=== PATIENT | female | born 1985 | race African-American/Black ===

== ENCOUNTER 2017-09-01 11:38 | Outpatient (CLI) | payer MEDICAID ==
[~2017-09-01] VITALS: Ht 182.9 cm; Wt 153.3 kg
[~2017-09-01 11:38] MED LIST: ALBU8.5H2 IH; ALBU8.5H4 IH; IPRA3AMP19 IH; PRD20T PO
[2017-09-01 12:00] VITALS: BP 133/65
[2017-09-01] MEDS ORDERED: NS IV 1000 ML 1,000 ML ONE ×2 (12:12→14:55)
[2017-09-01] MEDS ORDERED: ONDANSETRON 4 MG/2 ML (SDV) Z0FRAN ONE ×2 (12:12→17:21)
[2017-09-01] MEDS ORDERED: NS IV 1000 ML 1,000 ML IV SCH (12:15)
[2017-09-01] MEDS ORDERED: ONDANSETRON 4 MG/2 ML (SDV) Z0FRAN IVP ONE ×2 (12:15→15:15)
[2017-09-01 12:35] LABS: BILIRUBIN,URINE NEGATIVE (NEGATIVE); CLARITY,URINE CLEAR; COLOR,URINE YELLOW; GLUCOSE, URINE (UA) NEGATIVE (NEGATIVE); KETONES,URINE NEGATIVE (NEGATIVE); LEUKOCYTE ESTERASE ,URINE 2+ (NEGATIVE); NITRITE,URINE NEGATIVE (NEGATIVE); PH,URINE 5 (5-9); PROTEIN,URINE 1+ (NEGATIVE); UROBILINOGEN,URINE 1 MG/DL (NORMAL)
[2017-09-01 12:43] LABS: BACTERIA,URINE NEGATIVE /HPF; RBC,URINE 0-2 /HPF
[2017-09-01 12:46] LABS: BASOPHILS % (AUTO) 0 % (0-10); EOSINOPHILS # (AUTO) 0.1 10^3/uL (0.0-0.3); EOSINOPHILS % (AUTO) 1 % (0-10); HEMATOCRIT 34 % (35-52); HEMOGLOBIN 10.5 G/DL (11.5-16.0); LYMPHOCYTES # (AUTO) 0.5 X 10^3 (1.0-4.0); LYMPHOCYTES % (AUTO) 5 % (12-44); MEAN CORPUSCULAR HEMOGLOBIN 27 PG (25-34); MEAN CORPUSCULAR HGB CONC 31 G/DL (32-36); MEAN CORPUSCULAR VOLUME 85 FL (80-99); MEAN PLATELET VOLUME 8.9 FL (7.4-10.4); MONOCYTES # (AUTO) 0.9 X 10^3 (0.0-1.0); MONOCYTES % (AUTO) 8 % (0-12); NEUTROPHILS # (AUTO) 9.2 X 10^3 (1.8-7.8); NEUTROPHILS % (AUTO) 86 % (42-75); PLATELET COUNT 290 10^3/uL (130-400); RED BLOOD COUNT 3.96 10^6/uL (4.35-5.85); RED CELL DISTRIBUTION WIDTH 13.5 % (10.0-14.5); WHITE BLOOD COUNT 10.7 10^3/uL (4.3-11.0)
[2017-09-01 12:50] VITALS: BP 120/59
[2017-09-01 13:06] LABS: ALANINE AMINOTRANSFERASE 13 U/L (0-55); ALBUMIN 3.1 GM/DL (3.2-4.5); ALKALINE PHOSPHATASE 96 U/L (40-136); BILIRUBIN,TOTAL 0.2 MG/DL (0.1-1.0); BUN/CREATININE RATIO 10; CALCIUM 8.9 MG/DL (8.5-10.1); CARBON DIOXIDE 24 MMOL/L (21-32); CHLORIDE 109 MMOL/L (98-107); CREATININE SERUM 0.62 MG/DL (0.60-1.30); GFR ESTIMATED > 60; GLUCOSE 85 MG/DL (70-105); POTASSIUM 3.6 MMOL/L (3.6-5.0); SODIUM 139 MMOL/L (135-145); TOTAL PROTEIN 6.3 GM/DL (6.4-8.2); URIC ACID 3.2 MG/DL (2.6-7.2)
[2017-09-01 13:40] LABS: BAND NEUTROPHILS 0 %; BASOPHILS % (MANUAL) 0 %; EOSINOPHILS % (MANUAL) 2 %; LYMPHOCYTES % (MANUAL) 8 %; MONOCYTES % (MANUAL) 5 %; NEUTROPHILS % (MANUAL) 85 %; RBC MORPH NORMAL
[2017-09-01] MEDS ORDERED: ACETAMINOPHEN 500 MG TAB (TYLENOL) PO ONE (15:15)
[2017-09-01] MEDS ORDERED: RT-ALBUTEROL/IPRATROPIUM 3 ML (DUONEB) VIAL ONE (15:20)
[2017-09-01] MEDS ORDERED: RT-ALBUTEROL/IPRATROPIUM 3 ML (DUONEB) VIAL INH ONE (15:30)
--- NOTE | 2017-09-02 14:17 | Physician Query-Final Dx ---
MARK JAMES 09/02/17 1417: Clinic Account Progress/Dx Physician Query: Please give diagnosis Date of Service Sep 01, 2017 at 11:38 TOÑO BONILLA DO 09/04/17 0852: Clinic Account Progress/Dx DIAGNOSIS: Diagnosis 1. 31 week GA 2. Vomiting 3. Dehydration MARK JAMES Sep 02, 2017 14:17 TOÑO BONILLA DO Sep 04, 2017 08:52
== END 2017-09-01 17:45 | disposition home or self-care (01) ==
LOC: LDRP 11:38 → WSo 11:38
PROVIDERS: ATTEND Family Medicine
DX: O21.2 Late vomiting of pregnancy (principal); O99.283 Endocrine, nutritional and metabolic diseases complicating pregnancy, third trimester; E86.0 Dehydration; Z3A.31 31 weeks gestation of pregnancy
CPT/HCPCS: 36415; 80053; 81000; 83615; 84550; 85007; 85027; 94640; 96361; 96374; 96376; 99213

== ENCOUNTER 2017-09-18 11:08 | Outpatient (CLI) | payer MEDICAID ==
[~2017-09-18] VITALS: Ht 182.9 cm; Wt 154.2 kg
[2017-09-18] VITALS (9 sets, daily range): BP systolic 117–143; BP diastolic 57–70
[2017-09-18] MEDS ORDERED: D5 LR IV SOLUTION 1,000 ML IV ONE (12:26)
[2017-09-18] MEDS ORDERED: ONDANSETRON 4 MG/2 ML (SDV) Z0FRAN ONE (12:26)
[2017-09-18] MEDS ORDERED: ONDANSETRON 4 MG/2 ML (SDV) Z0FRAN IVP ONE (12:30)
[2017-09-18] MEDS ORDERED: D5 LR IV SOLUTION 1,000 ML IV SCH ×2 (12:30→14:55)
[2017-09-18 12:50] LABS: BASOPHILS % (AUTO) 0 % (0-10); EOSINOPHILS % (AUTO) 0 % (0-10); HEMATOCRIT 30 % (35-52); HEMOGLOBIN 9.6 G/DL (11.5-16.0); LYMPHOCYTES # (AUTO) 1.1 X 10^3 (1.0-4.0); LYMPHOCYTES % (AUTO) 10 % (12-44); MEAN CORPUSCULAR HEMOGLOBIN 27 PG (25-34); MEAN CORPUSCULAR HGB CONC 32 G/DL (32-36); MEAN CORPUSCULAR VOLUME 83 FL (80-99); MEAN PLATELET VOLUME 9.1 FL (7.4-10.4); MONOCYTES # (AUTO) 1.4 X 10^3 (0.0-1.0); MONOCYTES % (AUTO) 13 % (0-12); NEUTROPHILS # (AUTO) 7.8 X 10^3 (1.8-7.8); NEUTROPHILS % (AUTO) 76 % (42-75); PLATELET COUNT 314 10^3/uL (130-400); RED BLOOD COUNT 3.55 10^6/uL (4.35-5.85); RED CELL DISTRIBUTION WIDTH 13.2 % (10.0-14.5); WHITE BLOOD COUNT 10.3 10^3/uL (4.3-11.0)
[2017-09-18 13:15] LABS: ALANINE AMINOTRANSFERASE 12 U/L (0-55); ALBUMIN 2.9 GM/DL (3.2-4.5); ALKALINE PHOSPHATASE 89 U/L (40-136); BILIRUBIN,TOTAL 0.5 MG/DL (0.1-1.0); BUN/CREATININE RATIO 7; CALCIUM 8.4 MG/DL (8.5-10.1); CARBON DIOXIDE 19 MMOL/L (21-32); CHLORIDE 106 MMOL/L (98-107); CREATININE SERUM 0.58 MG/DL (0.60-1.30); GFR ESTIMATED > 60; GLUCOSE 90 MG/DL (70-105); POTASSIUM 3.2 MMOL/L (3.6-5.0); SODIUM 135 MMOL/L (135-145); TOTAL PROTEIN 5.7 GM/DL (6.4-8.2)
[2017-09-18 13:26] LABS: BILIRUBIN,URINE NEGATIVE (NEGATIVE); CLARITY,URINE CLEAR; COLOR,URINE YELLOW; GLUCOSE, URINE (UA) NEGATIVE (NEGATIVE); KETONES,URINE 1+ (NEGATIVE); LEUKOCYTE ESTERASE ,URINE 1+ (NEGATIVE); NITRITE,URINE NEGATIVE (NEGATIVE); PH,URINE 6.5 (5-9); PROTEIN,URINE NEGATIVE (NEGATIVE); UROBILINOGEN,URINE NORMAL (NORMAL)
[2017-09-18 13:34] LABS: BACTERIA,URINE TRACE /HPF; RBC,URINE 0-2 /HPF; WBC,URINE RARE /HPF
[2017-09-18] MEDS ORDERED: AMPICILLIN INJECTION 2,000 MG in NS (IVPB) 50 ML IV SCH (14:55)
--- NOTE | 2017-09-18 14:55 | History & Physical-OB ---
OB - Chief Complaint & HPI Date/Time Date of Admission: 09/18/17 Time Seen by Provider: 15:00 Chief Complaint/History OB-Reason for Admission/Chief: Labor Hx : 5 Hx Para: 2 Hx Last Menstrual Period: 01/28/2017 Expected Date of Delivery: Nov 04, 2017 Gestational Age in Weeks: 33 Gestational Age in Days: 2 Other reason for admission: Pt presented earlier today with report of nausea, vomiting and diarrhea. Also reported decreased movement. UA dipstick showed 4+ blood, mild proteinuria. FHR difficult to monitor due to body habitus, BPP 8/, IVAN 11. Requested RN perform SVE, pt found to be 3-4 cm/80-90/-1, with soft and anterior cervix. Pt admitted for labor. Monitors adjusted and contractions noted every 2-5 minutes. Admission Nurse Assessment Rev: Yes Allergies and Home Medications Allergies Coded Allergies: No Known Drug Allergies (Unverified , 10/20/12) Home Medications Albuterol 8.5 Gm Hfa.aer.ad, 8.5 GM IH Q2, (Reported) 2 PUFFS Albuterol Sulfate 1 Puff Puff, 2 PUFF IH Q4H PRN for DYSPNEA 1 PUFF = 90 MCG Prescribed by: BETTINA ZAVALA on 09/18/17 1540 Beclomethasone Dipropionate 8.7 Gm Aer.w.adap, 8.7 GM IH BID Prescribed by: BETTINA ZAVALA on 09/18/17 1540 Ipratropium/Albuterol Sulfate 3 Ml Ampul.neb, 3 ML IH Q6H PRN for SHORTNESS OF BREATH Prescribed by: BETTINA ZAVALA on 09/18/17 1540 Patient Home Medication List Home Medication List Reviewed: Yes OB - History Hx of Present Care: Yes (Insufficient care) Ultrasounds: Other (pt reports she had an US in her fifth month in a doctor's office in [place], [place] before she moved up to [place]; she has not had a formal anatomy scan. BPP today 10/23, fetus vertex.) Obstetrical Complications: Other ( labor) Medical Complications: Respiratory (COPD) Information Induced Hypertension: No Maternal Gestational Diabetes: No Hemorrhage: Yes (with first delivery) Obstetrical History Hx : 5 Hx Para: 2 Hx # Term Pregnancies: 1 Hx # Pregnancies: 1 Number of Living Children: 2 Hx Termination: No Hx Total # of Abortions (Spona: 2 Hx Multiple Gestation: No Hx Ectopic : No Hx Stillbirth: No Hx Complication: Yes (preeclampsia - second ; hemorrhage requiring transfusion - first ) Hx Induced Hypertens: Yes Hx Maternal Gestational Diabet: No Hx Hemorrhage: Yes (requiring blood transfusion - after first delivery in 2005) Delivery History Hx Dystocia: No Hx Forceps Assisted Delivery: No Hx Vacuum Extraction Assisted: No Hx Placenta Abnormality: No Hx Distress: No Hx Large For Gestational Age I: No Hx Small for Gestational Age I: No Hx Section: No Hx Vaginal Delivery Post C-Sec: No Hx Blood Disorders: No Adverse Rxn to Tranfusion: No Patient Past Medical History Term Vaginal Delivery - 2005 Hemorrhage requiring blood transfusion - 2005 SAB x2 at 8 wks - 2008, 2015 Vaginal Delivery at 36 wks - 2014 Preeclampsia - 2014 Hx of abnormal PAP with + HPV; s/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 Hx Gonorrhea, Chlamydia, Trich COPD Asthma HTN Tobacco Abuse THC Abuse Past Surgical History: abdominal laparoscopy intestine surgery as an infant Social History/Family History HIV/AIDS: No Recent Infectious Disease Expo: No Sexually Transmitted Disease: No Alcohol Use: Denies Use Recreational Drug Use: Yes (THC) Smoking Cessation: Current every day smoker 2nd Hand Smoke Exposure: Yes Immunizations Tetanus Booster (TDap): Less than 5yrs (08/27/17) Rubella: not immune RPR/VDRL: Negative GBS Status: Unknown HBsAG: Negative OB - Admission Exam Physical Exam Vitals: Vital Signs 09/18/17 09/18/17 11:40 12:51 Temp 98.4 Pulse 105 Resp 20 B/P (MAP) 143/63 (89) O2 Delivery Room Air HEENT: NCAT Heart: Rhythm Normal Lungs: Wheezes, Rhonchi, Diffuse Abdomen: Gravid Extremities: Normal Reflexes: Normal Cervical Dilatation: 3cm (3-4 per RN) Effacement: Other (80-90% per RN) Station: -3 (per RN) Membranes: Intact Heart Rate: 150's Accelerations: Accelerations Present Decelerations: Variable Decelerations Residential Variability: Average (6-25) Contractions on Admission: < 5 Minutes Apart Date/Time Contractions Began;: 09/17/17 Frequency of Contractions: irregular; poor tracing due to maternal habitus, q2- 5 minutes when tracing Duration: 30-50 Intensity: Mild Labs Laboratory Tests Test 09/18/17 12:00 09/18/17 12:35 Range/Units Urine Color YELLOW Urine Clarity CLEAR Urine pH 6.5 5-9 Urine Specific [place] 1.015 L 1.016-1.022 Urine Protein NEGATIVE NEGATIVE Urine Glucose (UA) NEGATIVE NEGATIVE Urine Ketones 1+ H NEGATIVE Urine Nitrite NEGATIVE NEGATIVE Urine Bilirubin NEGATIVE NEGATIVE Urine Urobilinogen NORMAL NORMAL MG/DL Urine Leukocyte Esterase 1+ H NEGATIVE Urine RBC (Auto) 4+ H NEGATIVE Urine RBC 0-2 /HPF Urine WBC RARE /HPF Urine Squamous Epithelial Cells 5-10 /HPF Urine Crystals NONE /LPF Urine Bacteria TRACE /HPF Urine Casts NONE /LPF Urine Mucus SMALL H /LPF Urine Culture Indicated NO Urine Opiates Screen NEGATIVE NEGATIVE Urine Oxycodone Screen NEGATIVE NEGATIVE Urine Methadone Screen NEGATIVE NEGATIVE Urine Propoxyphene Screen NEGATIVE NEGATIVE Urine Barbiturates Screen NEGATIVE NEGATIVE Ur Tricyclic Antidepressants Screen NEGATIVE NEGATIVE Urine Phencyclidine Screen NEGATIVE NEGATIVE Urine Amphetamines Screen NEGATIVE NEGATIVE Urine Methamphetamines Screen NEGATIVE NEGATIVE Urine Benzodiazepines Screen NEGATIVE NEGATIVE Urine Cocaine Screen NEGATIVE NEGATIVE Urine Cannabinoids Screen POSITIVE H NEGATIVE White Blood Count 10.3 4.3-11.0 10^3/uL Red Blood Count 3.55 L 4.35-5.85 10^6/uL Hemoglobin 9.6 L 11.5-16.0 G/DL Hematocrit 30 L 35-52 % Mean Corpuscular Volume 83 80-99 FL Mean Corpuscular Hemoglobin 27 25-34 PG Mean Corpuscular Hemoglobin Concent 32 32-36 G/DL Red Cell Distribution Width 13.2 10.0-14.5 % Platelet Count 314 130-400 10^3/uL Mean Platelet Volume 9.1 7.4-10.4 FL Neutrophils (%) (Auto) 76 H 42-75 % Lymphocytes (%) (Auto) 10 L 12-44 % Monocytes (%) (Auto) 13 H 0-12 % Eosinophils (%) (Auto) 0 0-10 % Basophils (%) (Auto) 0 0-10 % Neutrophils # (Auto) 7.8 1.8-7.8 X 10^3 Lymphocytes # (Auto) 1.1 1.0-4.0 X 10^3 Monocytes # (Auto) 1.4 H 0.0-1.0 X 10^3 Eosinophils # (Auto) 0.0 0.0-0.3 10^3/uL Basophils # (Auto) 0.0 0.0-0.1 10^3/uL Sodium Level 135 135-145 MMOL/L Potassium Level 3.2 L 3.6-5.0 MMOL/L Chloride Level 106 98-107 MMOL/L Carbon Dioxide Level 19 L 21-32 MMOL/L Anion Gap 10 5-14 MMOL/L Blood Urea Nitrogen 4 L 7-18 MG/DL Creatinine 0.58 L 0.60-1.30 MG/DL Estimat Glomerular Filtration Rate > 60 BUN/Creatinine Ratio 7 Glucose Level 90 70-105 MG/DL Calcium Level 8.4 L 8.5-10.1 MG/DL Total Bilirubin 0.5 0.1-1.0 MG/DL Aspartate Amino Transf (AST/SGOT) 12 5-34 U/L Alanine Aminotransferase (ALT/SGPT) 12 0-55 U/L Alkaline Phosphatase 89 40-136 U/L Total Protein 5.7 L 6.4-8.2 GM/DL Albumin 2.9 L 3.2-4.5 GM/DL OB - Assessment/Plan/Diagnosis Assessment Assessment: labor Admission Dx Labor 33 weeks gestation Obesity complicating in third trimester, BMI 46 Insufficient Care Tobacco Abuse Complicating Drug Abuse Complicating - THC COPD Asthma Hx of Preeclampsia Hx of Hemorrhage requiring transfusion Hx HSV1 and HSV2 Admission Status: Inpatient Order (span 2 midnights) Reason for Inpatient Admission: Mag Sulfate Therapy Plan Plan: Other (Tocolysis, stabilization, evaluation for cervical change and transfer to facility with higher level of NICU care for infant if not in active labor) Other Plan -Magnesium Sulfate - 6 gram bolus, 2 grams per hour -Betamethasone 12.5 mg IM now, repeat x1 in 24 hours -GBS culture -Ampicillin 2 grams now, then 1 gram Q4H for GBS prophylaxis -recheck SVE one hour after initial exam; if no change will call for transfer -ford cath placement -accurate I&O -bedrest 1550 -no change in SVE -[facility] Transfer [facility] called, patient accepted for transfer by Dr. Wilman Smith -review of records show late care; pt with first visit at [address] Cm; pt reports she had one other visit in [place], [place] and had an US in the office, which is how she knows that she is having a boy -no history of formal anatomy scan, office note on 08/27 reports US to be ordered , pt reports that it was scheduled for next week -BPP obtained today, 10/23 with IVAN 11, fetus vertex -will transfer to [place] via [facility] Copy Copies To 1: BRINA MC MD, MARGARET E DO Sep 18, 2017 14:55
[2017-09-18] MEDS ORDERED: MAGNESIUM 4 GM/100 ML IVPB 100 ML IV SCH (15:00)
[2017-09-18] MEDS ORDERED: CALCIUM GLUC. 10% 4.65 MEQ/10 ML VIAL IV PRN (15:00)
[2017-09-18] MEDS ORDERED: BETAMETHASONE ACE/NA PHOS 6 MG/ML (CELESTONE SOLUSPAN) IM SCH (15:00)
[2017-09-18] MEDS ORDERED: NS (IVPB) 50 ML ONE (15:14)
--- NOTE | 2017-09-18 15:22 | Diagnostic Imaging Report ---
INDICATION: Decreased movement. COMPARISON: None available. TECHNIQUE: Biophysical profile score was performed on 09/18/2017. FINDINGS: A single live intrauterine gestation is identified in a cephalic presentation. cardiac motion is documented at 130 beats per minute. The placenta is fundally located. Amniotic fluid index is within normal limits at 11.1 cm with the largest single pocket measuring 4.7 cm. Biophysical profile score: breathing movements: 2 out of 2 movements: 2 out of 2 posture and tone: 2 out of 2 Qualitative amniotic fluid volume: 2 out of 2 Total score: 8 out of 8 IMPRESSION: Single live intrauterine gestation in a cephalic presentation with a biophysical profile score of 8 out of 8. Dictated by: Dictated on workstation # [id number]
[2017-09-18] MEDS ORDERED: MAGNESIUM SULFATE DRIP 500 ML IV SCH (15:25)
[2017-09-18] MEDS ORDERED: ACYCLOVIR 400 MG TABLET (ZOVIRAX) PO SCH (15:30)
[2017-09-18] MEDS ORDERED: BECL8.7A7 IH (15:40)
[2017-09-18] MEDS ORDERED: IPRA3AMP31 IH (15:40)
[2017-09-18] MEDS ORDERED: RT-ALBUINH IH (15:40)
[2017-09-18 15:48] LABS: AMPHETAMINE SCREEN, URINE NEGATIVE (NEGATIVE); BENZODIAZEPINES SCREEN URINE NEGATIVE (NEGATIVE); COCAINE SCREEN URINE NEGATIVE (NEGATIVE); METHAMPHETAMINE SCREEN URINE S NEGATIVE (NEGATIVE)
[2017-09-18 15:49] LABS: BARBITURATE SCREEN URINE NEGATIVE (NEGATIVE); CANNABINOID SCREEN, URINE POSITIVE (NEGATIVE); METHADONE STAT NEGATIVE (NEGATIVE); OPIATE SCREEN URINE NEGATIVE (NEGATIVE); OXYCODONE STAT NEGATIVE (NEGATIVE); PROPOXYPHENE STAT NEGATIVE (NEGATIVE); TRICYCLIC ANTIDEPRESSANTS SCRE NEGATIVE (NEGATIVE)
[2017-09-18] MEDS ORDERED: MAGNESIUM 2 GM/50 ML IVPB 50 ML IV ONE (15:58)
--- NOTE | 2017-09-18 16:40 | Discharge Summary ---
Diagnosis/Chief Complaint Date of Admission 09/18/17 Date of Discharge 09/18/17 Admission Diagnosis Admission Diagnosis Labor 33 weeks gestation Obesity complicating in third trimester, BMI 46 Insufficient Care Tobacco Abuse Complicating Drug Abuse Complicating - THC COPD Asthma Hx of Preeclampsia Hx of Hemorrhage requiring transfusion Hx HSV1 and HSV2 Discharge Diagnosis Labor 33 weeks gestation Obesity complicating in third trimester, BMI 46 Insufficient Care Tobacco Abuse Complicating Drug Abuse Complicating - THC COPD Asthma Hx of Preeclampsia Hx of Hemorrhage requiring transfusion Hx HSV1 and HSV2 -Magnesium Sulfate - 6 gram bolus, 2 grams per hour -Betamethasone 12.5 mg IM now, repeat x1 in 24 hours -GBS culture -Ampicillin 2 grams now, then 1 gram Q4H for GBS prophylaxis -recheck SVE one hour after initial exam; if no change will call for transfer -ford cath placement -accurate I&O -bedrest 1550 -no change in SVE -[facility] Transfer Line called, patient accepted for transfer by Dr. Wilman Smith -review of records show late care; pt with first visit at [address] Ha; pt reports she had one other visit in [place], [place] and had an US in the office, which is how she knows that she is having a boy -no history of formal anatomy scan, office note on 08/27 reports US to be ordered , pt reports that it was scheduled for next week -BPP obtained today, 10/23 with IVAN 11, fetus vertex -will transfer to [place] via [facility] Chief Complaint/HPI Chief Complaint/HPI OB-Reason for Admission/Chief: Labor Hx : 5 Hx Para: 2 Hx Last Menstrual Period: 01/28/2017 Expected Date of Delivery: Nov 04, 2017 Gestational Age in Weeks: 33 Gestational Age in Days: 2 Other reason for admission: Pt presented earlier today with report of nausea, vomiting and diarrhea. Also reported decreased movement. UA dipstick showed 4+ blood, mild proteinuria. FHR difficult to monitor due to body habitus, BPP /, IVAN 11. Requested RN perform SVE, pt found to be 3-4 cm/80-90/-1, with soft and anterior cervix. Pt admitted for labor. Monitors adjusted and contractions noted every 2-5 minutes. Discharge Summary-Simple/Stand Discharge Physical Examination Allergies: Coded Allergies: No Known Drug Allergies (Unverified , 10/20/12) Vitals & I&Os Vital Sign - Last 12Hours Date Time Temp Pulse Resp B/P (MAP) Pulse Ox O2 Delivery O2 Flow Rate FiO2 09/18/17 15:55 97.0 97 20 118/57 (77) Room Air General Appearance: Alert, Oriented X3, Cooperative, No Acute Distress HEENT: Atraumatic, EOMI, Mucous Memb Moist/[place] Respiratory: Normal Air Movement, Other (diffuse wheezing) Cardiovascular: Regular Rate, Normal S1, Normal S2 Abdominal: Normal Bowel Sounds, Soft, No Tenderness, Other (gravid, morbidly obese) Extremities: No Clubbing, No Cyanosis, No Edema Skin: No Rashes, No Significant Lesion Neuro: Normal Speech, Normal Tone, Sensation Intact, Cranial Nerves 3-12 NL, Reflexes 2+ Psych/Mental Status: Mental Status NL, Mood NL Hospital Course See final discharge diagnosis. Labs Laboratory Tests Test 09/18/17 12:00 09/18/17 12:35 Range/Units Urine Color YELLOW Urine Clarity CLEAR Urine pH 6.5 5-9 Urine Specific [place] 1.015 L 1.016-1.022 Urine Protein NEGATIVE NEGATIVE Urine Glucose (UA) NEGATIVE NEGATIVE Urine Ketones 1+ H NEGATIVE Urine Nitrite NEGATIVE NEGATIVE Urine Bilirubin NEGATIVE NEGATIVE Urine Urobilinogen NORMAL NORMAL MG/DL Urine Leukocyte Esterase 1+ H NEGATIVE Urine RBC (Auto) 4+ H NEGATIVE Urine RBC 0-2 /HPF Urine WBC RARE /HPF Urine Squamous Epithelial Cells 5-10 /HPF Urine Crystals NONE /LPF Urine Bacteria TRACE /HPF Urine Casts NONE /LPF Urine Mucus SMALL H /LPF Urine Culture Indicated NO Urine Opiates Screen NEGATIVE NEGATIVE Urine Oxycodone Screen NEGATIVE NEGATIVE Urine Methadone Screen NEGATIVE NEGATIVE Urine Propoxyphene Screen NEGATIVE NEGATIVE Urine Barbiturates Screen NEGATIVE NEGATIVE Ur Tricyclic Antidepressants Screen NEGATIVE NEGATIVE Urine Phencyclidine Screen NEGATIVE NEGATIVE Urine Amphetamines Screen NEGATIVE NEGATIVE Urine Methamphetamines Screen NEGATIVE NEGATIVE Urine Benzodiazepines Screen NEGATIVE NEGATIVE Urine Cocaine Screen NEGATIVE NEGATIVE Urine Cannabinoids Screen POSITIVE H NEGATIVE White Blood Count 10.3 4.3-11.0 10^3/uL Red Blood Count 3.55 L 4.35-5.85 10^6/uL Hemoglobin 9.6 L 11.5-16.0 G/DL Hematocrit 30 L 35-52 % Mean Corpuscular Volume 83 80-99 FL Mean Corpuscular Hemoglobin 27 25-34 PG Mean Corpuscular Hemoglobin Concent 32 32-36 G/DL Red Cell Distribution Width 13.2 10.0-14.5 % Platelet Count 314 130-400 10^3/uL Mean Platelet Volume 9.1 7.4-10.4 FL Neutrophils (%) (Auto) 76 H 42-75 % Lymphocytes (%) (Auto) 10 L 12-44 % Monocytes (%) (Auto) 13 H 0-12 % Eosinophils (%) (Auto) 0 0-10 % Basophils (%) (Auto) 0 0-10 % Neutrophils # (Auto) 7.8 1.8-7.8 X 10^3 Lymphocytes # (Auto) 1.1 1.0-4.0 X 10^3 Monocytes # (Auto) 1.4 H 0.0-1.0 X 10^3 Eosinophils # (Auto) 0.0 0.0-0.3 10^3/uL Basophils # (Auto) 0.0 0.0-0.1 10^3/uL Sodium Level 135 135-145 MMOL/L Potassium Level 3.2 L 3.6-5.0 MMOL/L Chloride Level 106 98-107 MMOL/L Carbon Dioxide Level 19 L 21-32 MMOL/L Anion Gap 10 5-14 MMOL/L Blood Urea Nitrogen 4 L 7-18 MG/DL Creatinine 0.58 L 0.60-1.30 MG/DL Estimat Glomerular Filtration Rate > 60 BUN/Creatinine Ratio 7 Glucose Level 90 70-105 MG/DL Calcium Level 8.4 L 8.5-10.1 MG/DL Total Bilirubin 0.5 0.1-1.0 MG/DL Aspartate Amino Transf (AST/SGOT) 12 5-34 U/L Alanine Aminotransferase (ALT/SGPT) 12 0-55 U/L Alkaline Phosphatase 89 40-136 U/L Total Protein 5.7 L 6.4-8.2 GM/DL Albumin 2.9 L 3.2-4.5 GM/DL Pending Labs Urine Culture GBS Culture Radiology Reviewed Date of Exam: 09/18/17 US BIOPHYSICAL PROFILE [id number] INDICATION: Decreased movement. COMPARISON: None available. TECHNIQUE: Biophysical profile score was performed on 09/18/2017. FINDINGS: A single live intrauterine gestation is identified in a cephalic presentation. cardiac motion is documented at 130 beats per minute. The placenta is fundally located. Amniotic fluid index is within normal limits at 11.1 cm with the largest single pocket measuring 4.7 cm. Biophysical profile score: breathing movements: 2 out of 2 movements: 2 out of 2 posture and tone: 2 out of 2 Qualitative amniotic fluid volume: 2 out of 2 Total score: 8 out of 8 IMPRESSION: Single live intrauterine gestation in a cephalic presentation with a biophysical profile score of 8 out of 8. Discharge Condition at discharge stable, not in active labor Instructions to patient/family Please see electronic discharge instructions given to patient. Discharge Medications Reviewed and agree with Discharge Medication list on patient's Discharge Instruction sheet Copy Copies To 1: BRINA HA MD, MARGARET E DO Sep 18, 2017 16:40
[2017-09-18] MEDS ORDERED: AMPICILLIN INJECTION 1,000 MG in NS (IVPB) 50 ML IV SCH (19:00)
[2017-09-18] MEDS ORDERED: CATHETER FLUSH 10 ML SYR IV SCH (22:00)
== END 2017-09-18 17:00 | disposition short-term general hospital (02) ==
LOC: WSo 11:08 → LDRP 11:08 → WSo 17:00
PROVIDERS: ATTEND Family Medicine
DX: O60.03 Preterm labor without delivery, third trimester (principal); O99.333 Smoking (tobacco) complicating pregnancy, third trimester; F17.210 Nicotine dependence, cigarettes, uncomplicated; O99.323 Drug use complicating pregnancy, third trimester; F12.90 Cannabis use, unspecified, uncomplicated; O99.213 Obesity complicating pregnancy, third trimester; O99.513 Diseases of the respiratory system complicating pregnancy, third trimester; J44.9 Chronic obstructive pulmonary disease, unspecified; O09.33 Supervision of pregnancy with insufficient antenatal care, third trimester; Z3A.33 33 weeks gestation of pregnancy
CPT/HCPCS: 36415; 76819; 80053; 80306; 81000; 85025; 87088; 96361; 96372; 96374; 96375; 96376; 99214

== ENCOUNTER 2017-10-16 07:10 | Inpatient (IN) | payer MEDICAID ==
[2017-10-16] VITALS (58 sets, daily range): BP systolic 101–197; BP diastolic 50–99
[~2017-10-16] VITALS: Ht 180.3 cm; Wt 155.6 kg
[~2017-10-16 07:10] MED LIST changes: +BECL8.7A7 IH; +IPRA3AMP31 IH; +RT-ALBUINH IH
[2017-10-16] MEDS ORDERED: D5 LR IV SOLUTION 1,000 ML IV SCH (07:40)
[2017-10-16] MEDS ORDERED: OXYTOCIN/NORMAL SALINE 500 ML IV SCH ×2 (07:40→15:50)
[2017-10-16] MEDS ORDERED: MINERAL OIL CONCENTRATE 99.9% 15 ML UDC TOP PRN (07:45)
--- OUTSIDE RECORDS SUMMARY | 2017-10-16 07:50 | XMS REPORT | Continuity of Care Document ---
Author Author [facility] Organization [facility] Address Unknown Phone Unavailable Care Team Providers Care Lap Regulator Name Role Phone NO, LOCAL PHYSICIAN PP Unavailable Insurance Providers Payer Name Policy Number Subscriber Name Relationship [facility] [id number] Judy Peraza 01 Self / Same As Patient Advance Directives Directive Response Recorded Date Advance Directives N 10/20/12 8:30pm Organ Donor Y 10/20/12 8:30pm Problems No Known Problems or Medical conditions. Social History History Response Recorded Date/Time Alcohol Use Denies Use 10/20/12 8:30pm Recreational Drug Use N 10/20/12 8:30pm Sexually Transmitted Disease N 10/20/12 8 :30pm Allergies, Adverse Reactions, Alerts Allergen Type Severity Reaction Last Updated No Known Drug Allergies 10/20/12 Medications Medication Dose Units Route Sig Qty Days Prednisone 20 Mg PO BID 5 Albuterol (Albuterol Sulfate Hfa) 8.5 Gm IH Q4H PRN 1 Albuterol Sulfate/Ipratropium (Duoneb 2.5-0.5 Mg/3 Ml Soln) 3 Ml IH Q6H Albuterol (Proair Hfa) 8.5 Gm IH Q2 Response Recorded Date/Time Status not known Unknown Results No Known Relevant Diagnostic Tests, Laboratory Data and/or Discharge Summary. Encounters Encounter Location Date/Time Registered [facility] 10/20/12 8:25pm
[2017-10-16 08:08] LABS: BILIRUBIN,URINE NEGATIVE (NEGATIVE); CLARITY,URINE CLEAR; COLOR,URINE YELLOW; GLUCOSE, URINE (UA) NEGATIVE (NEGATIVE); KETONES,URINE NEGATIVE (NEGATIVE); LEUKOCYTE ESTERASE ,URINE 2+ (NEGATIVE); NITRITE,URINE NEGATIVE (NEGATIVE); PH,URINE 6 (5-9); PROTEIN,URINE 1+ (NEGATIVE); UROBILINOGEN,URINE NORMAL (NORMAL)
[2017-10-16 08:19] LABS: BACTERIA,URINE NEGATIVE /HPF
[2017-10-16 08:40] LABS: BASOPHILS % (AUTO) 0 % (0-10); EOSINOPHILS # (AUTO) 0.2 10^3/uL (0.0-0.3); EOSINOPHILS % (AUTO) 3 % (0-10); HEMATOCRIT 31 % (35-52); HEMOGLOBIN 9.8 G/DL (11.5-16.0); LYMPHOCYTES # (AUTO) 1.7 X 10^3 (1.0-4.0); LYMPHOCYTES % (AUTO) 19 % (12-44); MEAN CORPUSCULAR HEMOGLOBIN 27 PG (25-34); MEAN CORPUSCULAR HGB CONC 32 G/DL (32-36); MEAN CORPUSCULAR VOLUME 84 FL (80-99); MEAN PLATELET VOLUME 9.2 FL (7.4-10.4); MONOCYTES # (AUTO) 0.8 X 10^3 (0.0-1.0); MONOCYTES % (AUTO) 9 % (0-12); NEUTROPHILS # (AUTO) 6.2 X 10^3 (1.8-7.8); NEUTROPHILS % (AUTO) 70 % (42-75); PLATELET COUNT 278 10^3/uL (130-400); RED BLOOD COUNT 3.65 10^6/uL (4.35-5.85); RED CELL DISTRIBUTION WIDTH 14.2 % (10.0-14.5); WHITE BLOOD COUNT 8.9 10^3/uL (4.3-11.0)
[2017-10-16] MEDS ORDERED: METR500T PO (09:18)
[2017-10-16] MEDS ORDERED: ACYC400T PO (11:02)
--- NOTE | 2017-10-16 11:24 | History & Physical-OB ---
OB - Chief Complaint & HPI Date/Time Date of Admission: Date of Admission: Oct 16, 2017 at 07:10 Time Seen by Provider: 09:45 Chief Complaint/History OB-Reason for Admission/Chief: Induction of Labor Hx : 5 Hx Para: 2 Expected Date of Delivery: Nov 04, 2017 Gestational Age in Weeks: 37 Gestational Age in Days: 2 Indication for induction: medical complication (Pre eclampisa, morbid obesity, advance cervical dilation) History of Labs B+, Ab neg Rub Equivocal (needs MMR) HIV/HepB/RPR NR GC/Chyl neg GBS neg Allergies and Home Medications Allergies Coded Allergies: No Known Drug Allergies (Unverified , 10/20/12) Home Medications Acyclovir 400 Mg Tablet, 400 MG PO BID, (Reported) Albuterol 8.5 Gm Hfa.aer.ad, 8.5 GM IH Q2, (Reported) 2 PUFFS Beclomethasone Dipropionate 8.7 Gm Aer.w.adap, 8.7 GM IH BID Prescribed by: BETTINA ZAVALA on 09/18/17 1540 Ipratropium/Albuterol Sulfate 3 Ml Ampul.neb, 3 ML IH Q6H PRN for SHORTNESS OF BREATH Prescribed by: BETTINA ZAVALA on 09/18/17 1540 Metronidazole 500 Mg Tablet, 500 MG PO BID, (Reported) Patient Home Medication List Home Medication List Reviewed: Yes OB - History Hx of Present Care: Yes (Late care) Ultrasounds: Normal mid trimester US Obstetrical Complications: Pre-eclampsia, Other Medical Complications: Respiratory (Asthma) Other Concerns: H/o HSV on Acyclovir, no outbreaks during Information Induced Hypertension: Yes Maternal Gestational Diabetes: No Hemorrhage: No Obstetrical History Hx : 5 Hx Para: 2 Hx # Term Pregnancies: 1 Hx # Pregnancies: 1 Number of Living Children: 2 Hx Termination: No Hx Total # of Abortions (Spona: 2 Hx Multiple Gestation: No Hx Stillbirth: No Hx Complication: Yes Hx Induced Hypertens: Yes Hx Maternal Gestational Diabet: No Delivery History Hx Dystocia: No Hx Large For Gestational Age I: No Hx Small for Gestational Age I: No Hx Section: No Hx Vaginal Delivery Post C-Sec: No Hx Blood Disorders: No Adverse Rxn to Tranfusion: No Patient Past Medical History Term Vaginal Delivery - 2006 Hemorrhage requiring blood transfusion - 2006 SAB x2 at 8 wks - 2008, 2016 Vaginal Delivery at 36 wks - 2014 Preeclampsia - 2015 Hx of abnormal PAP with + HPV; s/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 Hx Gonorrhea, Chlamydia, Trich COPD Asthma HTN Tobacco Abuse THC Abuse Past Surgical History: abdominal laparoscopy intestine surgery as an infant Social History/Family History HIV/AIDS: No Recent Infectious Disease Expo: No Sexually Transmitted Disease: Yes Alcohol Use: Denies Use Recreational Drug Use: No 2nd Hand Smoke Exposure: Yes Immunizations Hepatitis A: Yes Hepatitis B: Yes Tetanus Booster (TDap): Less than 5yrs (08/27/17) Rubella: not immune RPR/VDRL: Negative GBS Status: Negative HBsAG: Negative OB - Admission Exam Physical Exam Vitals: Vital Signs 10/16/17 10/16/17 07:30 09:00 Temp 98.2 Pulse 94 Resp 18 B/P (MAP) 123/60 (81) Pulse Ox 98 O2 Delivery Room Air HEENT: NCAT Heart: Rhythm Normal Lungs: Clear Abdomen: Gravid Extremities: Normal Reflexes: Normal Cervical Dilatation: 5cm Effacement: 75% Station: -2 Membranes: Ruptured Amniotic Fluid: Clear Heart Rate: 130's Accelerations: Accelerations Present Decelerations: Variable Decelerations Short Term Variability: Present Mcc Variability: Average (6-25) Contractions on Admission: 6-10 Minutes Apart Intensity: Moderate Lombardo Scoring Tool (Modified) Dilation (cm): 3-4cm (2) Effacement (%): 51-79% (2) Descent/Station: -2 (1) Cervix Consistency: Soft (2) Cervix Position: Middle/Mid-Position (1) Add 1 point for: Each previous vaginal delivery (1) Labs Laboratory Tests Test 10/16/17 07:40 10/16/17 08:10 Range/Units Urine Color YELLOW Urine Clarity CLEAR Urine pH 6 5-9 Urine Specific [place] 1.020 1.016-1.022 Urine Protein 1+ H NEGATIVE Urine Glucose (UA) NEGATIVE NEGATIVE Urine Ketones NEGATIVE NEGATIVE Urine Nitrite NEGATIVE NEGATIVE Urine Bilirubin NEGATIVE NEGATIVE Urine Urobilinogen NORMAL NORMAL MG/DL Urine Leukocyte Esterase 2+ H NEGATIVE Urine RBC (Auto) 4+ H NEGATIVE Urine RBC 2-5 H /HPF Urine WBC 2-5 /HPF Urine Squamous Epithelial Cells 5-10 /HPF Urine Crystals NONE /LPF Urine Bacteria NEGATIVE /HPF Urine Casts NONE /LPF Urine Mucus NEGATIVE /LPF Urine Culture Indicated NO White Blood Count 8.9 4.3-11.0 10^3/uL Red Blood Count 3.65 L 4.35-5.85 10^6/uL Hemoglobin 9.8 L 11.5-16.0 G/DL Hematocrit 31 L 35-52 % Mean Corpuscular Volume 84 80-99 FL Mean Corpuscular Hemoglobin 27 25-34 PG Mean Corpuscular Hemoglobin Concent 32 32-36 G/DL Red Cell Distribution Width 14.2 10.0-14.5 % Platelet Count 278 130-400 10^3/uL Mean Platelet Volume 9.2 7.4-10.4 FL Neutrophils (%) (Auto) 70 42-75 % Lymphocytes (%) (Auto) 19 12-44 % Monocytes (%) (Auto) 9 0-12 % Eosinophils (%) (Auto) 3 0-10 % Basophils (%) (Auto) 0 0-10 % Neutrophils # (Auto) 6.2 1.8-7.8 X 10^3 Lymphocytes # (Auto) 1.7 1.0-4.0 X 10^3 Monocytes # (Auto) 0.8 0.0-1.0 X 10^3 Eosinophils # (Auto) 0.2 0.0-0.3 10^3/uL Basophils # (Auto) 0.0 0.0-0.1 10^3/uL OB - Assessment/Plan/Diagnosis Assessment Assessment: induction of labor Admission Dx Gestational HTN Morbid Obesity Advanced Cervical Dilation History of HSV Admission Status: Inpatient Order (span 2 midnights) Reason for Inpatient Admission: labor Plan Plan: Induction Induction Method: per Pitocin Protocol Other Plan 36 yo @ 37.2 wga here for IOL for Gestational HTN Plan - IOL with Pitocin, AROM 1140 clear - GBS Neg - H/p HSV, no acute infection, continue acyclovir - Desires Epidural for pain control Copy Copies To 1: BRINA CM MD, HOLLY R MD Oct 16, 2017 11:24 am
[2017-10-16] MEDS ORDERED: SUFENTA 0.6MCG/ML BUPIVA 0.125 100 ML ONE (11:39)
[2017-10-16] MEDS ORDERED: LIDOCAINE/EPI 2% 1:200,00 (XYLOCAINE) 10 ML VIAL ONE (11:55)
[2017-10-16] MEDS ORDERED: LACTATED RINGERS 1,000 ML IV SCH (12:59)
[2017-10-16] MEDS ORDERED: METOCLOPRAMIDE INJ 10 MG/2 ML (REGLAN) IV PRN (13:00)
[2017-10-16] MEDS ORDERED: ONDANSETRON 4 MG/2 ML (SDV) Z0FRAN IV PRN (13:00)
[2017-10-16] MEDS ORDERED: diphenhydrAMINE 50 MG/ML INJ (BENADRYL) IV PRN (13:00)
[2017-10-16] MEDS ORDERED: EPIDURAL (SUFENTA 0.6MCG/ML BUPIVA 0.125%) 100 ML BAG EPI SCH (13:00)
[2017-10-16] MEDS ORDERED: NALOXONE 0.4 MG/ML 1 ML (NARCAN) VIAL IV PRN ×2 (13:00)
[2017-10-16] MEDS ORDERED: LIDOCAINE PF 2% 5 ML (XYLOCAINE) VIAL ONE (13:10)
[2017-10-16] MEDS ORDERED: BUPIVACAINE 0.25% 30 ML (SENSORCAINE) VIAL ONE (13:25)
[2017-10-16] MEDS ORDERED: CATHETER FLUSH 10 ML SYR IV SCH (14:00)
--- NOTE | 2017-10-16 15:58 | OB Labor & Delivery Record ---
Vag Delivery Note Vag Delivery Note Date of Delivery: 10/16/17 Preoperative Diagnosis: Christine Peraza is a (32 /Para 5 / 2, Gestational Age (wks)37.2 thats presents for IOL for Gestational HTN, Morbid obesity Postoperative Diagnosis: Same Surgeon: BRINA CM Dehydrogenation Converter Operator: Uriel Gerber, MS3 Anesthesia: Epidural Delivery Type: @ 1533 Findings: term Male , normal placenta Viable Male infant, apgars 8/9, weight 6#10 Lacerations: Right vaginal abrasion Intact placenta with 3 vessel cord. No nuchal cord, body cord or shoulder dystocia Estimated Blood Loss: 100 ml Complications: None Condition: Stable Description of Procedure: The patient is a 32 yo G5 now P3 @ 37.2 who presented for IOL. She was admitted and informed consent was obtained. Her labor course was unremarkable. She progressed to complete dilatation and began to push. She was then set up for delivery. The 's head was delivered atraumatically in the NATE position. The shoulders and remainder of the infant's body were then delivered without difficulty. Upon delivery, the head was held below the level of the perineum and the mouth and nares were bulb suctioned. The cord was doubly clamped @ 1535 and cut by friend of mother and the was placed on maternal abdomen and attended to by nursery nurse. An intact placenta with 3-vessel cord delivered via Teddy and there was found to be minimal bleeding.~ Vigorous fundal massage was performed and the fundus was found to be firm. IV oxytocin was given. Examination of the vagina and perineum revealed a right vaginal abrasion that did not require repair. Following the repair, sponge, instrument and needle counts were correct. Mom and baby were both in stable condition in the labor suite. Vitals - Labs Vital Signs - I&O Vital Signs Date Time Temp Pulse Resp B/P (MAP) Pulse Ox O2 Delivery O2 Flow Rate FiO2 10/16/17 09:00 94 18 123/60 (81) Room Air 10/16/17 08:45 75 18 120/68 (85) Room Air 10/16/17 08:29 81 18 129/64 (85) Room Air 10/16/17 08:24 82 18 123/65 (84) Room Air 10/16/17 07:30 98.2 90 18 132/63 (86) 98 Room Air Labs Laboratory Tests 10/16/17 07:40: Urine Color YELLOW, Urine Clarity CLEAR, Urine pH 6, Urine Specific [place] 1.020, Urine Protein 1+H, Urine Glucose (UA) NEGATIVE, Urine Ketones NEGATIVE, Urine Nitrite NEGATIVE, Urine Bilirubin NEGATIVE, Urine Urobilinogen NORMAL, Urine Leukocyte Esterase 2+H, Urine RBC (Auto) 4+H, Urine RBC 2-5H, Urine WBC 2- 5, Urine Squamous Epithelial Cells 5-10, Urine Crystals NONE, Urine Bacteria NEGATIVE, Urine Casts NONE, Urine Mucus NEGATIVE, Urine Culture Indicated NO 10/16/17 08:10: White Blood Count 8.9, Red Blood Count 3.65L, Hemoglobin 9.8L, Hematocrit 31L, Mean Corpuscular Volume 84, Mean Corpuscular Hemoglobin 27, Mean Corpuscular Hemoglobin Concent 32, Red Cell Distribution Width 14.2, Platelet Count 278, Mean Platelet Volume 9.2, Neutrophils (%) (Auto) 70, Lymphocytes (%) (Auto) 19, Monocytes (%) (Auto) 9, Eosinophils (%) (Auto) 3, Basophils (%) (Auto) 0, Neutrophils # (Auto) 6.2, Lymphocytes # (Auto) 1.7, Monocytes # (Auto) 0.8, Eosinophils # (Auto) 0.2, Basophils # (Auto) 0.0 BRINA CM MD Oct 16, 2017 15:58
[2017-10-16] MEDS ORDERED: MEASLES,MUMPS,RUBELLA 1 EA INJ SQ ONE (16:00)
[2017-10-16] MEDS ORDERED: BENZOCAINE/MENTHOL (DERMOPLAST) 56 ML CAN TP PRN (16:00)
[2017-10-16] MEDS ORDERED: WITCH HAZEL(TUCKS) 40 EA JAR TOP PRN (16:00)
[2017-10-16] MEDS: IBUPROFEN 600 MG (MOTRIN) TAB PO SCH ×2 (20:54→22:01)
[2017-10-16] MEDS: CATHETER FLUSH 10 ML SYR IV SCH (20:55)
[2017-10-17] MEDS: IBUPROFEN 600 MG (MOTRIN) TAB PO SCH ×4 (02:57→23:30)
[2017-10-17 03:34] VITALS: BP 139/89
[2017-10-17 06:03] LABS: BASOPHILS % (AUTO) 0 % (0-10); EOSINOPHILS # (AUTO) 0.2 10^3/uL (0.0-0.3); EOSINOPHILS % (AUTO) 2 % (0-10); HEMATOCRIT 32 % (35-52); HEMOGLOBIN 10.1 G/DL (11.5-16.0); LYMPHOCYTES # (AUTO) 2.1 X 10^3 (1.0-4.0); LYMPHOCYTES % (AUTO) 23 % (12-44); MEAN CORPUSCULAR HEMOGLOBIN 26 PG (25-34); MEAN CORPUSCULAR HGB CONC 32 G/DL (32-36); MEAN CORPUSCULAR VOLUME 84 FL (80-99); MEAN PLATELET VOLUME 9.1 FL (7.4-10.4); MONOCYTES # (AUTO) 0.9 X 10^3 (0.0-1.0); MONOCYTES % (AUTO) 10 % (0-12); NEUTROPHILS # (AUTO) 5.8 X 10^3 (1.8-7.8); NEUTROPHILS % (AUTO) 64 % (42-75); PLATELET COUNT 284 10^3/uL (130-400); RED BLOOD COUNT 3.83 10^6/uL (4.35-5.85); RED CELL DISTRIBUTION WIDTH 14.3 % (10.0-14.5)
[2017-10-17] MEDS: CATHETER FLUSH 10 ML SYR IV SCH ×3 (06:40→22:18)
[2017-10-17 08:00] VITALS: BP 134/83
[2017-10-17] MEDS: FERROUS SULF 325 MG (IRON) TAB PO SCH (08:47)
--- NOTE | 2017-10-17 08:59 | Progress Note (SOAP) ---
Subjective Subjective/Events-last exam Patient doing well this AM. Breast feeding . Pain is well controlled. Tolerating PO diet Review of Systems Date Seen by Provider: Oct 17, 2017 Time Seen by Provider: 08:56 Pulmonary: No Dyspnea, No Cough Cardiovascular: No: Chest Pain, Palpitations Gastrointestinal: No: Nausea, Vomiting, Abdominal Pain Objective Exam Last Set of Vital Signs Vital Signs Date Time Temp Pulse Resp B/P (MAP) Pulse Ox O2 Delivery O2 Flow Rate FiO2 10/17/17 08:00 97.4 71 18 134/83 (100) 97 Room Air Capillary Refill : I&O Intake and Output 10/17/17 00:00 Intake Total 2300 ml Output Total 1000 ml Balance 1300 ml Intake Oral 1200 ml IV Total 1100 ml Output Urine Total 1000 ml # Voids 2 Daily Weight Change No General: Alert, Oriented X3, Cooperative, No Acute Distress HEENT: Mucous Memb Moist/[place] Lungs: Clear to Auscultation, Normal Air Movement Heart: Regular Rate, No Murmurs Abdomen: Normal Bowel Sounds, Soft, No Tenderness, No Masses, Other (fundus firm and below umbilicus) Extremities: No Edema, No Tenderness/Swelling Psych/Mental Status: Mental Status NL, Mood NL Results/Procedures Lab Laboratory Tests 10/17/17 05:41: White Blood Count 9.0, Red Blood Count 3.83L, Hemoglobin 10.1L, Hematocrit 32L, Mean Corpuscular Volume 84, Mean Corpuscular Hemoglobin 26, Mean Corpuscular Hemoglobin Concent 32, Red Cell Distribution Width 14.3, Platelet Count 284, Mean Platelet Volume 9.1, Neutrophils (%) (Auto) 64, Lymphocytes (%) (Auto) 23, Monocytes (%) (Auto) 10, Eosinophils (%) (Auto) 2, Basophils (%) (Auto) 0, Neutrophils # (Auto) 5.8, Lymphocytes # (Auto) 2.1, Monocytes # (Auto) 0.9, Eosinophils # (Auto) 0.2, Basophils # (Auto) 0.0 Assessment/Plan Assessment/Plan Admission Status: Inpatient Order (span 2 midnights) Reason for Inpatient Admission: labor Assessment & Plan 32 yo G5 now P3 delivered @ 37.2, PPD #1, doing well today Plan - Routine post care - Continue Acyclovir and Iron replacement - f.u 6 weeks with [facility] Clinical Quality Measures DVT/VTE Risk/Contraindication: Risk Factor Score Per Nursin RFS Level Per Nursing on Admit: 2=Moderate BRINA CM MD Oct 17, 2017 8:59 am
[2017-10-17 12:00] VITALS: BP 136/86
--- NOTE | 2017-10-17 13:51 | Anesthesia-Regional Post-Op ---
Regional Patient Condition Mental Status: Alert, Oriented x3 Circulation: Same as Pre-Op Headache: Absent Sensation: Full Recovery Motor Block: Absent Post Op Complications Complications None Follow Up Care/Instructions Patient Instructions None needed. Anesthesia/Patient Condition Patient is doing well, no complaints, stable vital signs, no apparent adverse anesthesia problems. KELVIN HUGHES DO Oct 17, 2017 13:51
[2017-10-17 16:00] VITALS: BP 138/85
[2017-10-17 20:00] VITALS: BP 130/76
[2017-10-18 00:01] VITALS: BP 143/90
[2017-10-18] MEDS: CATHETER FLUSH 10 ML SYR IV SCH ×2 (06:05→10:11)
[2017-10-18] MEDS: IBUPROFEN 600 MG (MOTRIN) TAB PO SCH ×2 (06:05→11:49)
[2017-10-18 08:00] VITALS: BP 134/86
[2017-10-18] MEDS ORDERED: MEASLES,MUMPS,RUBELLA 1 EA INJ ONE (09:06)
[2017-10-18] MEDS: FERROUS SULF 325 MG (IRON) TAB PO SCH (09:12)
--- NOTE | 2017-10-18 09:46 | Discharge Summary ---
Diagnosis/Chief Complaint Date of Admission Oct 16, 2017 at 7:10 am Date of Discharge Discharge Summary-Simple/Stand Discharge Physical Examination Allergies: Coded Allergies: No Known Drug Allergies (Unverified , 10/20/12) Vitals & I&Os Vital Sign - Last 12Hours Date Time Temp Pulse Resp B/P (MAP) Pulse Ox O2 Delivery O2 Flow Rate FiO2 10/18/17 08:00 97.0 72 20 134/86 (102) 97 Room Air Intake and Output 10/18/17 00:00 Intake Total 2000 ml Output Total 2800 ml Balance -800 ml Hospital Course See final discharge diagnosis. Discharge Instructions to patient/family Please see electronic discharge instructions given to patient. Discharge Medications Reviewed and agree with Discharge Medication list on patient's Discharge Instruction sheet Clinical Quality Measures DVT/VTE Risk/Contraindication: Risk Factor Score Per Nursin RFS Level Per Nursing on Admit: 2=Moderate BRINA CM MD Oct 18, 2017 9:46 am
[2017-10-18] MEDS ORDERED: IBUP-844 PO (09:48)
[2017-10-18] MEDS ORDERED: FERR325T18 PO (09:48)
--- NOTE | 2017-10-18 09:49 | Discharge Instructions ---
Discharge Inst-Women's Serv Depart Medications New, Converted or Re-Newed RX: Transmitted to Pharmacy New Medications: Ferrous Sulfate (Ferrous Sulfate) 325 Mg Tablet 325 MG PO DAILY, #30 TAB Ibuprofen (Ibu) 600 Mg Tablet 600 MG PO Q6H, #90 TAB Continued Medications: Acyclovir (Acyclovir) 400 Mg Tablet 400 MG PO BID, TAB Albuterol (Proair Hfa) 8.5 Gm Hfa.aer.ad 8.5 GM IH Q2 2 PUFFS Beclomethasone Dipropionate (Qvar) 8.7 Gm Aer.w.adap 8.7 GM IH BID for 30 Days, GM Ipratropium/Albuterol Sulfate (Iprat-Albut 0.5-3(2.5) mg/3 ml) 3 Ml Ampul.neb 3 ML IH Q6H PRN for SHORTNESS OF BREATH for 30 Days, EACH Metronidazole (Flagyl) 500 Mg Tablet 500 MG PO BID, TAB Follow Up/Instructions Goal/Follow Up: [facility] in 6 weeks Activity Activity: Activity as Tolerated Driving Instructions: You May Drive Nothing Inside Vagina: No Douching, No [place], No Tampons Diet Discharge Diet: Cardiac Diet Symptoms to Report to : Swelling Increased, Bleeding Excessive, Heart Beat Irreg/Pounding, Pain/Pressure in Jaw, Weight Gain Over 2 Pounds For Any Problems or Questions: Contact Your Physician Copies To 1: BRINA CM MD, HOLLY R MD Oct 18, 2017 9:49 am
[2017-10-18 12:55] VITALS: BP 134/86
== END 2017-10-18 14:00 | disposition home or self-care (01) | DRG 774 ==
LOC: LDRP 07:10
PROVIDERS: ADMIT Family Medicine; ATTEND Family Medicine
PROC: 10E0XZZ Delivery of Products of Conception, External Approach (ICD-10-PCS; principal; 2017-10-16)
PROC: 3E033VJ Introduction of Other Hormone into Peripheral Vein, Percutaneous Approach (ICD-10-PCS; 2017-10-16)
DX: O13.4 Gestational [pregnancy-induced] hypertension without significant proteinuria, complicating childbirth (principal); O98.32 Other infections with a predominantly sexual mode of transmission complicating childbirth; O99.214 Obesity complicating childbirth; E66.01 Morbid (severe) obesity due to excess calories; Z68.42 Body mass index [BMI] 45.0-49.9, adult; O99.52 Diseases of the respiratory system complicating childbirth; J44.9 Chronic obstructive pulmonary disease, unspecified; Z37.0 Single live birth; Z3A.37 37 weeks gestation of pregnancy; Z23 Encounter for immunization
CPT/HCPCS: 36415; 81000; 85025; 86850; 86900; 86901; 90707

== ENCOUNTER 2018-01-26 16:18 | Emergency (ER) | payer MEDICAID ==
[~2018-01-26] VITALS: Ht 180.3 cm; Wt 156.0 kg
[~2018-01-26 16:18] MED LIST changes: +ACYC400T PO; +FERR325T18 PO; +IBUP-844 PO; +METR500T PO
--- OUTSIDE RECORDS SUMMARY | 2018-01-26 16:22 | XMS REPORT ---
Author Author BRINA CM Organization [facility] Address [address] [place] [address] Care Team Providers Care Optical Glass Inspector Name Role Phone BRINA CM Unavailable PROBLEMS Type Condition ICD9-CM Code [id number] Code Onset Dates Condition Status SNOMED Code Problem BMI 45.0-49.9, adult Z68.42 Active 695712361 Problem Seasonal allergies J30.2 Active 523526034 Problem Obesity affecting in third trimester O99.213 Active 056257821189 Problem Moderate persistent asthma with exacerbation J45.41 Active 745516177 ALLERGIES No Known Allergies ENCOUNTERS Encounter Location Date Diagnosis [facility] [id number] [place] [address] Dec, care and examination Z39.2 ; Moderate persistent asthma with exacerbation J45.41 ; Vaginal discharge N89.8 and BMI 45.0-49.9, adult Z68.42 [facility] [id number] [place] [address] Dec, Seasonal allergies J30.2 [facility] [address] [place] [address] Sep, [facility] [id number] [place] [address]277- [address]598 Sep, [facility] [id number] [place] [address]50[address] 5349 Sep, 36 weeks gestation of Z3A.36 ; Third trimester Z34.93 and Obesity affecting in third trimester O99.213 [facility] [id number] [place] [address]- 1468 Sep, BMI 45.0-49.9, adult Z68.42 ; Third trimester Z34.93 ; 35 weeks gestation of Z3A.35 ; Obesity affecting in third trimester O99.213 and Vaginal discharge N89.8 [place] [address] [address] Sep, [facility] [id number] [place] [address]- [address] Sep, [place] [address] [address] Sep, Third trimester Z34.93 ; 34 weeks gestation of Z3A.34 ; Current with history of pre-term labor in third trimester O09.213 and Obesity affecting in third trimester O99.213 [place] [address] [address] Sep, [place] [address] [address] Sep, [facility] [address] [address] Aug, Acute maxillary sinusitis, recurrence not specified J01.00 ; Moderate persistent asthma with exacerbation J45.41 and Chest congestion R09.[address] [address] Aug, Third trimester Z34.93 ; 32 weeks gestation of Z3A.32 ; Obesity affecting in third trimester O99.213 and BMI 45.0-49.9, adult Z68.42 [place] [id number] [place] [address] 83[address] Aug, [address] [address] Aug, 30 weeks gestation of Z3A.30 ; Third trimester Z34.93 ; Nausea/vomiting in O21.9 ; Marijuana use F12.90 ; Obesity affecting in third trimester O99.213 and Encounter for immunization Z23 [address] [place] [address] Aug, [place] [address] [address] July, [place] [address] [place] [address]- [address] July, Decreased movements in second trimester, single or unspecified fetus O36.8120 [place] [address] [place] [address]87[address]- 6[address] July, Decreased movements in second trimester, single or unspecified fetus O36.8120 [place] [address] [place] [address]24- [address] July, [place] [address] [place] [address]24[address] July, Multigravida in second trimester Z34.82 ; 26 weeks gestation of Z3A.26 ; Moderate persistent asthma with exacerbation J45.41 and Obesity affecting in second trimester O99.212 [place] [address] [address] Jun, [place] [id number] [place] [address] Jun, Multigravida in second trimester Z34.82 ; Normal in multigravida Z34.80 ; 22 weeks gestation of Z3A.22 ; Obesity affecting in second trimester O99.212 ; Herpesviral infection, unspecified B00.9 and Other viral diseases complicating , second trimester O98.512 [place] [address] [address] Jun, IMMUNIZATIONS No Known Immunizations SOCIAL HISTORY Never Assessed REASON FOR VISIT , is having clear vaginal discharge since - Cole Iqbal RN PLAN OF CARE Activity Details Follow Up 6 Months with Dilcia mcgee Asthma Reason: Pending Test GC/CHLAM PROBE (STATE) Pending Test CULTURE, GENITAL VITAL SIGNS Height 71 in 2018-01-08 Weight 336 lbs 2018-01-08 Temperature 98.0 degrees Fahrenheit 2018-01-08 Heart Rate 88 bpm 2018-01-08 Respiratory Rate 20 2018-01-08 BMI 46.86 kg/m2 2018-01-08 Blood pressure systolic 122 mmHg 2018-01-08 Blood pressure diastolic 74 mmHg 2018-01-08 MEDICATIONS Medication Instructions Dosage Frequency Start Date End Date Duration Status Flagyl 500 mg Orally 2 times a day 1 tablet 12h Dec, Dec, 7 days Active Albuterol Sulfate (2.5 MG/3ML) 0.083% Inhalation Three times a day 3 ml as needed 8h Sep, Active Tessalon Perles 100 MG Orally Three times a day 1 capsule as needed 8h Dec, 5 days Not-Taking Advair Diskus 250-50 MCG/DOSE Inhalation Twice a day 1 puff 12h Dec, Active Ventolin HFA 108 (90 Base) MCG/ACT Inhalation every 6 hrs 2 puffs as needed 6h Active Flovent HFA 110 MCG/ACT Inhalation Twice a day 1 puff 12h Sep, Active RESULTS Name Result Date Reference Range TRICHOMONAS (IN HOUSE) 2018-01-08 TRICHOMONAS negative Control + Lot # [id number] Exp date 10/2018 BACTERIAL VAGINOSIS (IN HOUSE) 2018-01-08 RESULTS POSITIVE Control + Lot # [id number] Exp date 05/2019 PROCEDURES Procedure Date Ordered Result Body Site No Charge Jan 08, 2018 [facility] Jan [facility], 2018 Bacterial Vaginosis In House Jan 08, 2018 INSTRUCTIONS MEDICATIONS ADMINISTERED No Known Medications MEDICAL (GENERAL) HISTORY Type Description Date Medical History Preeclampsia history Medical History Asthma Medical History HSV 1&2 Medical History Hypertension Surgical History abdomen laparascopy Surgical History intestine surgery as infant Hospitalization History childbirth Hospitalization History [facility] for 09/2017
--- OUTSIDE RECORDS SUMMARY | 2018-01-26 16:22 | XMS REPORT ---
Author Author BRINA CM Organization [facility] Address [address] [place] [address] Care Team Providers Care Senior Art Director Name Role Phone BRINA CM Unavailable PROBLEMS Type Condition ICD9-CM Code [id number] Code Onset Dates Condition Status SNOMED Code Problem Obesity affecting in third trimester O99.213 Active 857910127228 Problem Moderate persistent asthma with exacerbation J45.41 Active 105169406 ALLERGIES No Information ENCOUNTERS Encounter Location Date Diagnosis [facility] [id number] [place] [address] Nov, [facility] [id number] [place] [address]- [address] Sep, [facility] [id number] [place] [address]113- [address] Sep, [facility] [id number] [place] [address]27- 9469 Sep, 36 weeks gestation of Z3A.36 [place] [id number] [place] [address] 8[address]83- [address] Sep, BMI 45.0-49.9, adult Z68.42 ; Third trimester Z34.93 ; 35 weeks gestation of Z3A.35 ; Obesity affecting in third trimester O99.213 and Vaginal discharge N89.8 [place] [id number] [place] [address]168- 7142 Sep, [place] [id number] [place] [address] 09048- 6859 Sep, [place] [id number] [place] [address] 50940- 5284 Sep, Third trimester Z34.93 ; 34 weeks gestation of Z3A.34 ; Current with history of pre-term labor in third trimester O09.213 and Obesity affecting in third trimester O99.213 [place] [id number] [place] [address] 74941- [address]9 Sep, [facility] [id number] [place] [address] 24240- [address]9 Sep, [facility] [id number] [place] [address] Aug, Acute maxillary sinusitis, recurrence not specified J01.00 ; Moderate persistent asthma with exacerbation J45.41 and Chest congestion R09.[address] [address] Aug, Third trimester Z34.93 ; 32 weeks gestation of Z3A.32 ; Obesity affecting in third trimester O99.213 and BMI 45.0-49.9, adult Z68.42 [place] [id number] [place] [address]38- [address] Aug, [place] [id number] [place] [address] 10650- 0239 Aug, 30 weeks gestation of Z3A.30 ; Third trimester Z34.93 ; Nausea/vomiting in O21.9 ; Marijuana use F12.90 ; Obesity affecting in third trimester O99.213 and Encounter for immunization Z23 [address] [id number] [place] [address]- [address] Aug, [place] [id number] [place] [address] 73851- [address]004 July, [address] [address] July, Decreased movements in second trimester, single or unspecified fetus O36.8120 [place] [address] [address]- [address] July, Decreased movements in second trimester, single or unspecified fetus O36.8120 [place] [address] [address] July, [place] [id number] [place] [address] 0[address]75- 38[address] July, Multigravida in second trimester Z34.82 ; 26 weeks gestation of Z3A.26 ; Moderate persistent asthma with exacerbation J45.41 and Obesity affecting in second trimester O99.212 [place] [id number] [place] [address] 37494- 1555 Jun, [place] [id number] [place] [address] 49622- 9057 Jun, Multigravida in second trimester Z34.82 ; Normal in multigravida Z34.80 ; 22 weeks gestation of Z3A.22 ; Obesity affecting in second trimester O99.212 ; Herpesviral infection, unspecified B00.9 and Other viral diseases complicating , second trimester O98.512 [place] [address] [place] [address] 33842- 9619 Jun, IMMUNIZATIONS No Known Immunizations SOCIAL HISTORY Never Assessed REASON FOR VISIT OB 2wk f/u-[facility] PLAN OF CARE Activity Details Follow Up 1 Week Reason: VITAL SIGNS Height 71 in 2017-09-25 Weight 342 lbs 2017-09-25 Temperature 98.9 degrees Fahrenheit 2017-09-25 Heart Rate 85 bpm 2017-09-25 Respiratory Rate 20 2017-09-25 BMI 47.699 kg/m2 2017-09-25 Blood pressure systolic 132 mmHg 2017-09-25 Blood pressure diastolic 74 mmHg 2017-09-25 MEDICATIONS Medication Instructions Dosage Frequency Start Date End Date Duration Status Sep, Active Qvar 80 MCG/ACT Inhalation Twice a day 1 puff 12h Nov, Active Albuterol Sulfate (2.5 MG/3ML) 0.083% Inhalation Three times a day 3 ml as needed 8h Sep, Active Ventolin HFA 108 (90 Base) MCG/ACT Inhalation every 6 hrs 2 puffs as needed 6h Active RESULTS Name Result Date Reference Range UA OB DIP (IN HOUSE) 2017-09-25 Glucose neg Protein neg PROCEDURES Procedure Date Ordered Result Body Site URINE-NO MICRO September 25, 2017 INSTRUCTIONS MEDICATIONS ADMINISTERED No Known Medications MEDICAL (GENERAL) HISTORY Type Description Date Medical History Preeclampsia history Medical History Asthma Medical History HSV 1&2 Medical History Hypertension Surgical History abdomen laparascopy Surgical History intestine surgery as infant Hospitalization History childbirth Hospitalization History [facility] for 09/2017
--- OUTSIDE RECORDS SUMMARY | 2018-01-26 16:22 | XMS REPORT ---
Author Author BRINA CM Organization [facility] Address [address] [place] [address] Care Team Providers Care Concrete Saw Operator Name Role Phone BRINA CM Unavailable PROBLEMS Type Condition ICD9-CM Code UOI63-VS Code Onset Dates Condition Status SNOMED Code Problem Obesity affecting in third trimester O99.213 Active 168969548330 Problem Moderate persistent asthma with exacerbation J45.41 Active 037036562 ALLERGIES No Information ENCOUNTERS Encounter Location Date Diagnosis [facility] [id number] [place] [address] 92395- 2141 Nov, [facility] [id number] [place] [address] 86078- 1921 Sep, [facility] [id number] [place] [address] 33119- 1408 Sep, [facility] [id number] [place] [address] 84566- 9764 Sep, 36 weeks gestation of Z3A.36 [place] [id number] [place] [address] 48309- 1734 Sep, BMI 45.0-49.9, adult Z68.42 ; Third trimester Z34.93 ; 35 weeks gestation of Z3A.35 ; Obesity affecting in third trimester O99.213 and Vaginal discharge N89.8 [place] [id number] [place] [address] 98743- 8126 Sep, [place] [id number] [place] [address] 98335- 1225 Sep, [place] [id number] [place] [address] 15083- 2528 Sep, Third trimester Z34.93 ; 34 weeks gestation of Z3A.34 ; Current with history of pre-term labor in third trimester O09.213 and Obesity affecting in third trimester O99.213 [place] [id number] [place] [address] 43660- 3247 Sep, [facility] [id number] [place] [address] 41844- 3749 Sep, [facility] [id number] [place] [address] 55420 -5622 Aug, Acute maxillary sinusitis, recurrence not specified J01.00 ; Moderate persistent asthma with exacerbation J45.41 and Chest congestion R09.[address] 90627- 2913 Aug, Third trimester Z34.93 ; 32 weeks gestation of Z3A.32 ; Obesity affecting in third trimester O99.213 and BMI 45.0-49.9, adult Z68.42 [id number] [place] [address] 39340- 6474 Aug, [place] [id number] [place] [address] 52869- 2968 Aug, 30 weeks gestation of Z3A.30 ; Third trimester Z34.93 ; Nausea/vomiting in O21.9 ; Marijuana use F12.90 ; Obesity affecting in third trimester O99.213 and Encounter for immunization Z23 [id number] [place] [address] 04910- 2833 Aug, [place] [id number] [place] [address] 75904- 2840 July, [address] 64744- 3560 July, Decreased movements in second trimester, single or unspecified fetus O36.8120 [place] [address] 90637- 7927 July, Decreased movements in second trimester, single or unspecified fetus O36.8120 [place] [address] [address] 60[address] July, [place] [address] [address] 7289 July, Multigravida in second trimester Z34.82 ; 26 weeks gestation of Z3A.26 ; Moderate persistent asthma with exacerbation J45.41 and Obesity affecting in second trimester O99.212 [place] [address] [address]- 8500 Jun, [place] [address] [place] [address] 89091- 6750 Jun, [place] [address] [place] [address] 96878- 8649 Jun, Multigravida in second trimester Z34.82 ; Normal in multigravida Z34.80 ; 22 weeks gestation of Z3A.22 ; Obesity affecting in second trimester O99.212 ; Herpesviral infection, unspecified B00.9 and Other viral diseases complicating , second trimester O98.512 IMMUNIZATIONS No Known Immunizations SOCIAL HISTORY Never Assessed REASON FOR VISIT PLAN OF CARE VITAL SIGNS MEDICATIONS Unknown Medications RESULTS No Results PROCEDURES No Known procedures INSTRUCTIONS MEDICATIONS ADMINISTERED No Known Medications MEDICAL (GENERAL) HISTORY Type Description Date Medical History Preeclampsia history Medical History Asthma Medical History HSV 1&2 Medical History Hypertension Surgical History abdomen laparascopy Surgical History intestine surgery as infant Hospitalization History childbirth Hospitalization History [facility] for 09/2017
--- OUTSIDE RECORDS SUMMARY | 2018-01-26 16:22 | XMS REPORT ---
Author Author BRINA CM Organization [facility] Address [address] [place] [address] Care Team Providers Care Skein Bleacher Name Role Phone BRINA CM Unavailable PROBLEMS Type Condition ICD9-CM Code ZJX24-WN Code Onset Dates Condition Status SNOMED Code Problem Obesity affecting in third trimester O99.213 Active 949628008622 Problem Moderate persistent asthma with exacerbation J45.41 Active 944312585 ALLERGIES No Information ENCOUNTERS Encounter Location Date Diagnosis [place] [id number] [place] [address] 10960- 8549 Sep, [place] [id number] [place] [address] 73091- 8136 Sep, [place] [id number] [place] [address] 77482- 4921 Sep, 36 weeks gestation of Z3A.36 [place] [id number] [place] [address] 66257- 3540 Sep, BMI 45.0-49.9, adult Z68.42 ; Third trimester Z34.93 ; 35 weeks gestation of Z3A.35 ; Obesity affecting in third trimester O99.213 and Vaginal discharge N89.8 [place] [address] [place] [address] 92966- 8622 Sep, [place] [id number] [place] [address] 15269- 7554 Sep, [place] [id number] [place] [address] 63017- 0588 Sep, Third trimester Z34.93 ; 34 weeks gestation of Z3A.34 ; Current with history of pre-term labor in third trimester O09.213 and Obesity affecting in third trimester O99.213 [facility] [id number] [address]- 5092 Sep, [facility] [id number] [place] [address] 61125- 5272 Sep, [facility] [address] [place] [address] 69929 -9987 Aug, Acute maxillary sinusitis, recurrence not specified J01.00 ; Moderate persistent asthma with exacerbation J45.41 and Chest congestion R09.89 [place] [id number] [place] [address] 18724- 6000 Aug, Third trimester Z34.93 ; 32 weeks gestation of Z3A.32 ; Obesity affecting in third trimester O99.213 and BMI 45.0-49.9, adult Z68.42 [place] [id number] [place] [address] 14464- 1173 Aug, [facility] [id number] [place] [address] 88606- 8780 Aug, 30 weeks gestation of Z3A.30 ; Third trimester Z34.93 ; Nausea/vomiting in O21.9 ; Marijuana use F12.90 ; Obesity affecting in third trimester O99.213 and Encounter for immunization Z23 [place] [id number] [address]- 5869 Aug, [place] [id number] [place] [address] 91145- 0757 July, [place] [id number] [place] [address] 42043- 7319 July, Decreased movements in second trimester, single or unspecified fetus O36.8120 [place] [id number] [place] [address] 31481- 1247 July, Decreased movements in second trimester, single or unspecified fetus O36.8120 [place] [id number] [address]- 3829 July, [place] [address] [place] [address] [id number]- 8307 July, Multigravida in second trimester Z34.82 ; 26 weeks gestation of Z3A.26 ; Moderate persistent asthma with exacerbation J45.41 and Obesity affecting in second trimester O99.212 [place] [id number] [place] [address] [id number]- 4341 Jun, [place] [address] [place] [address] 85842- 8453 Jun, Multigravida in second trimester Z34.82 ; Normal in multigravida Z34.80 ; 22 weeks gestation of Z3A.22 ; Obesity affecting in second trimester O99.212 ; Herpesviral infection, unspecified B00.9 and Other viral diseases complicating , second trimester O98.512 [place] [address] [place] [address] 14561- 1256 Jun, IMMUNIZATIONS No Known Immunizations SOCIAL HISTORY Never Assessed REASON FOR VISIT Waiting for call back PLAN OF CARE VITAL SIGNS MEDICATIONS Unknown [...]
--- OUTSIDE RECORDS SUMMARY | 2018-01-26 16:22 | XMS REPORT ---
Author Author BRINA CM Organization [facility] Address [address] [place] [address] Care Team Providers Care Guest Services Representative Name Role Phone BRINA CM Unavailable PROBLEMS Type Condition ICD9-CM Code HUA96-ZG Code Onset Dates Condition Status SNOMED Code Problem Obesity affecting in third trimester O99.213 Active 535463363544 Problem Moderate persistent asthma with exacerbation J45.41 Active 642173837 ALLERGIES No Information ENCOUNTERS Encounter Location Date Diagnosis [facility] [id number] [place] [address] 10054- 5294 Nov, [facility] [id number] [place] [address] 71336- 7243 Sep, [facility] [id number] [place] [address] 99484- 2741 Sep, [facility] [id number] [place] [address] 49923- 6376 Sep, 36 weeks gestation of Z3A.36 [place] [id number] [place] [address] 49743- 9725 Sep, BMI 45.0-49.9, adult Z68.42 ; Third trimester Z34.93 ; 35 weeks gestation of Z3A.35 ; Obesity affecting in third trimester O99.213 and Vaginal discharge N89.8 [place] [id number] [place] [address] 90001- 5992 Sep, [place] [id number] [place] [address] 79313- 9455 Sep, [facility] [id number] [place] [address] 69949- 0105 Sep, Third trimester Z34.93 ; 34 weeks gestation of Z3A.34 ; Current with history of pre-term labor in third trimester O09.213 and Obesity affecting in third trimester O99.213 [place] [id number] [place] [address] 63918- 2946 Sep, [facility] [id number] [place] [address] 75784- 4575 Sep, [facility] [id number] [place] [address] 59836 -5910 Aug, Acute maxillary sinusitis, recurrence not specified J01.00 ; Moderate persistent asthma with exacerbation J45.41 and Chest congestion R09.[address] 28341- 6807 Aug, Third trimester Z34.93 ; 32 weeks gestation of Z3A.32 ; Obesity affecting in third trimester O99.213 and BMI 45.0-49.9, adult Z68.42 [address] [id number] [place] [address] 51236- 1260 Aug, [address] [id number] [place] [address] 11227- 3259 Aug, 30 weeks gestation of Z3A.30 ; Third trimester Z34.93 ; Nausea/vomiting in O21.9 ; Marijuana use F12.90 ; Obesity affecting in third trimester O99.213 and Encounter for immunization Z23 [id number] [place] [address] 10994- 8292 Aug, [place] [id number] [place] [address] 01338- 8183 July, [address] 60035- 9732 July, Decreased movements in second trimester, single or unspecified fetus O36.8120 [place] [address] 14428- 5864 July, Decreased movements in second trimester, single or unspecified fetus O36.8120 [place] [address] [address]- 3938 July, [place] [address] [address]- 7178 July, Multigravida in second trimester Z34.82 ; 26 weeks gestation of Z3A.26 ; Moderate persistent asthma with exacerbation J45.41 and Obesity affecting in second trimester O99.212 [place] [address], [place] [address]- 5885 Jun, [place] [address] [place] [address] 44015- 7951 Jun, [place] [address] [address]- 8968 Jun, Multigravida in second trimester Z34.82 ; Normal in multigravida Z34.80 ; 22 weeks gestation of Z3A.22 ; Obesity affecting in second trimester O99.212 ; Herpesviral infection, unspecified B00.9 and Other viral diseases complicating , second trimester O98.512 IMMUNIZATIONS No Known Immunizations SOCIAL HISTORY Never Assessed REASON FOR VISIT Medication question PLAN OF CARE VITAL SIGNS MEDICATIONS Medication Instructions Dosage Frequency Start Date End Date Duration Status Flovent HFA 110 MCG/ACT Inhalation Twice a day 1 puff 12h Sep, Active RESULTS No Results PROCEDURES No Known procedures INSTRUCTIONS MEDICATIONS ADMINISTERED No Known Medications MEDICAL (GENERAL) HISTORY Type Description Date Medical History Preeclampsia history Medical History Asthma Medical History HSV 1&2 Medical History Hypertension Surgical History abdomen laparascopy Surgical History intestine surgery as Hospitalization History childbirth Hospitalization History [facility] for 09/2017
--- OUTSIDE RECORDS SUMMARY | 2018-01-26 16:22 | XMS REPORT ---
Author Author BRINA CM Organization [facility] Address [address] [place] [address] Care Team Providers Care Shipmaster Name Role Phone BRINA CM Unavailable PROBLEMS Type Condition ICD9-CM Code FBB84-WT Code Onset Dates Condition Status SNOMED Code Problem Seasonal allergies J30.2 Active 592379384 Problem Obesity affecting in third trimester O99.213 Active 042818756884 Problem Moderate persistent asthma with exacerbation J45.41 Active 814068849 ALLERGIES No Information ENCOUNTERS Encounter Location Date Diagnosis [facility] [id number] [place] [address] 61406- 4958 Dec, [facility] [id number] [place] [address] 95288 -8712 Dec, Seasonal allergies J30.2 [facility] [id number] [place] [address] 05669- 2117 Sep, [facility] [id number] [place] [address] 99440- 6984 Sep, [facility] [id number] [place] [address] 11715- 7128 Sep, 36 weeks gestation of Z3A.36 ; Third trimester Z34.93 and Obesity affecting in third trimester O99.213 [facility] [id number] [place] [address] 80197- 4616 Sep, BMI 45.0-49.9, adult Z68.42 ; Third trimester Z34.93 ; 35 weeks gestation of Z3A.35 ; Obesity affecting in third trimester O99.213 and Vaginal discharge N89.8 [facility] [address] 23092- 0264 Sep, [facility] [address] [place] [address] 00749- 5948 Sep, [facility] [id number] [place] [address] 00614- 8414 Sep, Third trimester Z34.93 ; 34 weeks gestation of Z3A.34 ; Current with history of pre-term labor in third trimester O09.213 and Obesity affecting in third trimester O99.213 [facility] [id number] [place] [address] 86590- 6065 Sep, [facility] [address] 80224- 6174 Sep, [facility] [id number] [place] [address] 47896 -2321 Aug, Acute maxillary sinusitis, recurrence not specified J01.00 ; Moderate persistent asthma with exacerbation J45.41 and Chest congestion R09.89 [facility] [id number] [place] [address] 43954- 7537 Aug, Third trimester Z34.93 ; 32 weeks gestation of Z3A.32 ; Obesity affecting in third trimester O99.213 and BMI 45.0-49.9, adult Z68.42 [place] [address] [place] [address] 93166- 4957 Aug, [facility] [id number] [place] [address] 77599- 1190 Aug, 30 weeks gestation of Z3A.30 ; Third trimester Z34.93 ; Nausea/vomiting in O21.9 ; Marijuana use F12.90 ; Obesity affecting in third trimester O99.213 and Encounter for immunization Z23 [place] [id number] [place] [address] 04538- 9760 Aug, [facility] [id number] [place] [address] 10386- 0078 July, [facility] [address] [address]- 1584 July, Decreased movements in second trimester, single or unspecified fetus O36.8120 [place] [id number] [place] [address] 87580- 3869 July, Decreased movements in second trimester, single or unspecified fetus O36.8120 [place] [id number] [place] [address] 42456- 9878 July, [place] [id number] [place] [address] 02201- 5277 July, Multigravida in second trimester Z34.82 ; 26 weeks gestation of Z3A.26 ; Moderate persistent asthma with exacerbation J45.41 and Obesity affecting in second trimester O99.212 [place] [id number] [place] [address] 82841- 1877 Jun, [place] [id number] [place] [address] 85819- 5627 Jun, Multigravida in second trimester Z34.82 ; Normal in multigravida Z34.80 ; 22 weeks gestation of Z3A.22 ; Obesity affecting in second trimester O99.212 ; Herpesviral infection, unspecified B00.9 and Other viral diseases complicating , second trimester O98.[address] [place] [address] 75104- 7285 Jun, IMMUNIZATIONS No Known Immunizations SOCIAL HISTORY Never Assessed REASON FOR VISIT OB 1wk f/u -- liz starks PLAN OF CARE Activity Details Follow Up 1 Week Reason: VITAL SIGNS Height 71 in 2017-10-08 Weight 347.6 lbs 2017-10-08 Temperature 98.0 degrees Fahrenheit 2017-10-08 Heart Rate 86 bpm 2017-10-08 Respiratory Rate 22 2017-10-08 BMI 48.48 kg/m2 2017-10-08 Blood pressure systolic 117 mmHg 2017-10-08 Blood pressure diastolic 74 mmHg 2017-10-08 MEDICATIONS Medication Instructions Dosage Frequency Start Date End Date Duration Status Flagyl 500 mg Orally 2 times a day 1 tablet 12h Sep, Sep, 7 days Active Ventolin HFA 108 (90 Base) MCG/ACT Inhalation every 6 hrs 2 puffs as needed 6h Active Acyclovir 400 MG Orally Twice a day 1 tablet 12h Active Sep, Active Albuterol Sulfate (2.5 MG/3ML) 0.083% Inhalation Three times a day 3 ml as needed 8h Sep, Active Qvar 80 MCG/ACT Inhalation Twice a day 1 puff 12h Nov, Active RESULTS No Results PROCEDURES No Known procedures INSTRUCTIONS MEDICATIONS ADMINISTERED No Known Medications MEDICAL (GENERAL) HISTORY Type Description Date Medical History Preeclampsia history Medical History Asthma Medical History HSV 1&2 Medical History Hypertension Surgical History abdomen laparascopy Surgical History intestine surgery as Hospitalization History childbirth Hospitalization History [facility] for 09/2017
--- OUTSIDE RECORDS SUMMARY | 2018-01-26 16:22 | XMS REPORT ---
Author Author BRINA CM Organization [facility] Address [address] [place] [address] Care Team Providers Care Device Sales Consultant Name Role Phone BRINA CM Unavailable PROBLEMS Type Condition ICD9-CM Code EFE92-SE Code Onset Dates Condition Status SNOMED Code Problem Obesity affecting in third trimester O99.213 Active 037657412510 Problem Moderate persistent asthma with exacerbation J45.41 Active 461923334 ALLERGIES No Known Allergies ENCOUNTERS Encounter Location Date Diagnosis [facility] [id number] [place] [address] 58504- 8552 Nov, [facility] [id number] [place] [address] 89629- 3586 Sep, [facility] [id number] [place] [address] 90301- 6479 Sep, [facility] [id number] [place] [address] 10809- 1769 Sep, 36 weeks gestation of Z3A.36 [place] [id number] [place] [address] 10547- 9573 Sep, BMI 45.0-49.9, adult Z68.42 ; Third trimester Z34.93 ; 35 weeks gestation of Z3A.35 ; Obesity affecting in third trimester O99.213 and Vaginal discharge N89.8 [place] [id number] [place] [address] 78494- 2363 Sep, [place] [id number] [place] [address] 30399- 6045 Sep, [place] [id number] [place] [address] 48212- 2077 Sep, Third trimester Z34.93 ; 34 weeks gestation of Z3A.34 ; Current with history of pre-term labor in third trimester O09.213 and Obesity affecting in third trimester O99.213 [place] [id number] [place] [address] 64256- 1990 Sep, [facility] [id number] [place] [address] 01115- 3924 Sep, [facility] [id number] [place] [address] 03000 -9350 Aug, Acute maxillary sinusitis, recurrence not specified J01.00 ; Moderate persistent asthma with exacerbation J45.41 and Chest congestion R09.89 [id number] [place] [address] 45392- 7660 Aug, Third trimester Z34.93 ; 32 weeks gestation of Z3A.32 ; Obesity affecting in third trimester O99.213 and BMI 45.0-49.9, adult Z68.42 [id number] [place] [address] 50735- 0518 Aug, [id number] [place] [address] 92326- 0616 Aug, 30 weeks gestation of Z3A.30 ; Third trimester Z34.93 ; Nausea/vomiting in O21.9 ; Marijuana use F12.90 ; Obesity affecting in third trimester O99.213 and Encounter for immunization Z23 [id number] [place] [address] 58812- 1617 Aug, [place] [id number] [place] [address] 96801- 2520 July, [address] 85676- 1567 July, Decreased movements in second trimester, single or unspecified fetus O36.[address] 60413- 8472 July, Decreased movements in second trimester, single or unspecified fetus O36.8120 [place] [address] [address] [address] 0293 July, [place] [address] [place] [address] 251674- 7431 July, Multigravida in second trimester Z34.82 ; 26 weeks gestation of Z3A.26 ; Moderate persistent asthma with exacerbation J45.41 and Obesity affecting in second trimester O99.212 [place] [address] [address] [place] [address] 10714- 3355 Jun, [place] [id number] [place] [address] 52897- 6028 Jun, Multigravida in second trimester Z34.82 ; Normal in multigravida Z34.80 ; 22 weeks gestation of Z3A.22 ; Obesity affecting in second trimester O99.212 ; Herpesviral infection, unspecified B00.9 and Other viral diseases complicating , second trimester O98.512 [address] [address] [address] [place] [address] 49237- 1909 Jun, IMMUNIZATIONS No Known Immunizations SOCIAL HISTORY Never Assessed REASON FOR VISIT OB 1wk f/u, [facility] OF CARE Activity Details Follow Up 1 Week Reason: VITAL SIGNS Height 71 in 2017-10-01 Weight 337.0 lbs 2017-10-01 Temperature 97.2 degrees Fahrenheit 2017-10-01 Heart Rate 96 bpm 2017-10-01 Respiratory Rate 20 2017-10-01 BMI 47.002 kg/m2 2017-10-01 Blood pressure systolic 128 mmHg 2017-10-01 Blood pressure diastolic 80 mmHg 2017-10-01 MEDICATIONS Medication Instructions Dosage Frequency Start Date End Date Duration Status Sep, Active Acyclovir 400 MG Orally Twice a day 1 tablet 12h Active Flagyl 500 mg Orally 2 times a day 1 tablet 12h Sep, Sep, 7 days Active Albuterol Sulfate (2.5 MG/3ML) 0.083% Inhalation Three times a day 3 ml as needed 8h Sep, Active Ventolin HFA 108 (90 Base) MCG/ACT Inhalation every 6 hrs 2 puffs as needed 6h Active Qvar 80 MCG/ACT Inhalation Twice a day 1 puff 12h Nov, Active RESULTS No Results PROCEDURES Procedure Date Ordered Result Body Site URINE-NO MICRO October 01, 2017 [facility] October 01, 2017 Bacterial Vaginosis In House October 01, 2017 INSTRUCTIONS MEDICATIONS ADMINISTERED No Known Medications MEDICAL (GENERAL) HISTORY Type Description Date Medical History Preeclampsia history Medical History Asthma Medical History HSV 1&2 Medical History Hypertension Surgical History abdomen laparascopy Surgical History intestine surgery as Hospitalization History childbirth Hospitalization History [facility] for 09/2017
--- OUTSIDE RECORDS SUMMARY | 2018-01-26 16:22 | XMS REPORT ---
Author Author BRINA CM Organization [facility] Address [address] [place] [address] Care Team Providers Care Gis Application Developer Name Role Phone BRINA CM Unavailable PROBLEMS Type Condition ICD9-CM Code XQI68-FT Code Onset Dates Condition Status SNOMED Code Problem Obesity affecting in third trimester O99.213 Active 803068721983 Problem Moderate persistent asthma with exacerbation J45.41 Active 088084767 ALLERGIES No Information ENCOUNTERS Encounter Location Date Diagnosis [facility] [id number] [place] [address] 30760- 2057 Nov, [facility] [id number] [place] [address] 86425- 5304 Sep, [facility] [id number] [place] [address] 24352- 9035 Sep, [facility] [id number] [place] [address] 30705- 0966 Sep, 36 weeks gestation of Z3A.36 [place] [id number] [place] [address] 30498- 2433 Sep, BMI 45.0-49.9, adult Z68.42 ; Third trimester Z34.93 ; 35 weeks gestation of Z3A.35 ; Obesity affecting in third trimester O99.213 and Vaginal discharge N89.8 [place] [id number] [place] [address] 73816- 7034 Sep, [place] [id number] [place] [address] 88758- 9601 Sep, [place] [id number] [place] [address] 93955- 9053 Sep, Third trimester Z34.93 ; 34 weeks gestation of Z3A.34 ; Current with history of pre-term labor in third trimester O09.213 and Obesity affecting in third trimester O99.213 [place] [id number] [place] [address] 09830- 1117 Sep, [facility] [id number] [place] [address] 01013- 6096 Sep, [facility] [id number] [place] [address] 48245 -3454 Aug, Acute maxillary sinusitis, recurrence not specified J01.00 ; Moderate persistent asthma with exacerbation J45.41 and Chest congestion R09.[address] 00423- 0976 Aug, Third trimester Z34.93 ; 32 weeks gestation of Z3A.32 ; Obesity affecting in third trimester O99.213 and BMI 45.0-49.9, adult Z68.42 [id number] [place] [address] 92454- 9181 Aug, [address] [id number] [place] [address] 51193- 3637 Aug, 30 weeks gestation of Z3A.30 ; Third trimester Z34.93 ; Nausea/vomiting in O21.9 ; Marijuana use F12.90 ; Obesity affecting in third trimester O99.213 and Encounter for immunization Z23 [id number] [place] [address] 88642- 0677 Aug, [place] [id number] [place] [address] 41022- 1132 July, [address] 67507- 9410 July, Decreased movements in second trimester, single or unspecified fetus O36.8120 [address] [address] [address] 09427- 3504 July, Decreased movements in second trimester, single or unspecified fetus O36.8120 [address] [address] [address] [address]- 4632 July, [place] [address] [address]- 2893 July, Multigravida in second trimester Z34.82 ; 26 weeks gestation of Z3A.26 ; Moderate persistent asthma with exacerbation J45.41 and Obesity affecting in second trimester O99.212 [address] [address] [address] [place] [address] 05452- 5380 Jun, [place] [address] [place] [address] 03958- 3710 Jun, Multigravida in second trimester Z34.82 ; Normal in multigravida Z34.80 ; 22 weeks gestation of Z3A.22 ; Obesity affecting in second trimester O99.212 ; Herpesviral infection, unspecified B00.9 and Other viral diseases complicating , second trimester O98.512 [address] [address] [address]- 3380 Jun, IMMUNIZATIONS No Known Immunizations SOCIAL HISTORY Never Assessed REASON FOR VISIT Referral PLAN OF CARE VITAL SIGNS MEDICATIONS Unknown [...]
--- OUTSIDE RECORDS SUMMARY | 2018-01-26 16:23 | XMS REPORT ---
Author Author BRINA CM Organization [facility] Address [address] [place] [address] Care Team Providers Care Outside Laborer Name Role Phone BRINA CM Unavailable PROBLEMS Type Condition ICD9-CM Code JJT11-TD Code Onset Dates Condition Status SNOMED Code Problem Obesity affecting in third trimester O99.213 Active 986811920049 Problem Moderate persistent asthma with exacerbation J45.41 Active 227919979 ALLERGIES No Information ENCOUNTERS Encounter Location Date Diagnosis [facility] [id number] [place] [address] 56827- 8244 Nov, [facility] [id number] [place] [address] 18284- 8051 Sep, [facility] [id number] [place] [address] 27712- 2216 Sep, [facility] [id number] [place] [address] 41029- 5568 Sep, 36 weeks gestation of Z3A.36 [place] [id number] [place] [address] 84277- 1153 Sep, BMI 45.0-49.9, adult Z68.42 ; Third trimester Z34.93 ; 35 weeks gestation of Z3A.35 ; Obesity affecting in third trimester O99.213 and Vaginal discharge N89.8 [place] [id number] [place] [address] 21242- 0361 Sep, [place] [id number] [place] [address] 83464- 5309 Sep, [place] [id number] [place] [address] 08495- 1485 Sep, Third trimester Z34.93 ; 34 weeks gestation of Z3A.34 ; Current with history of pre-term labor in third trimester O09.213 and Obesity affecting in third trimester O99.213 [place] [id number] [place] [address] 98096- 3798 Sep, [facility] [id number] [place] [address] 58521- 7965 Sep, [facility] [id number] [place] [address] 56288 -8430 Aug, Acute maxillary sinusitis, recurrence not specified J01.00 ; Moderate persistent asthma with exacerbation J45.41 and Chest congestion R09.[address] 21465- 2796 Aug, Third trimester Z34.93 ; 32 weeks gestation of Z3A.32 ; Obesity affecting in third trimester O99.213 and BMI 45.0-49.9, adult Z68.42 [address] [id number] [place] [address] 75441- 4001 Aug, [id number] [place] [address] 48629- 1738 Aug, 30 weeks gestation of Z3A.30 ; Third trimester Z34.93 ; Nausea/vomiting in O21.9 ; Marijuana use F12.90 ; Obesity affecting in third trimester O99.213 and Encounter for immunization Z23 [id number] [place] [address] 39074- 5027 Aug, [place] [id number] [place] [address] 80749- 5780 July, [address] 24949- 7690 July, Decreased movements in second trimester, single or unspecified fetus O36.8120 [place] [address] 03154- 0508 July, Decreased movements in second trimester, single or unspecified fetus O36.8120 [place] [address], [place] [address]- 1722 July, [place] [id number] [place] [address] 10577- 7434 July, Multigravida in second trimester Z34.82 ; 26 weeks gestation of Z3A.26 ; Moderate persistent asthma with exacerbation J45.41 and Obesity affecting in second trimester O99.212 [place] [id number] [place] [address] 60768- 1824 Jun, [place] [id number] [place] [address] 13663- 6968 Jun, Multigravida in second trimester Z34.82 ; Normal in multigravida Z34.80 ; 22 weeks gestation of Z3A.22 ; Obesity affecting in second trimester O99.212 ; Herpesviral infection, unspecified B00.9 and Other viral diseases complicating , second trimester O98.512 [place] [address] [place] [address] 15786- 0863 Jun, IMMUNIZATIONS No Known Immunizations SOCIAL HISTORY Never Assessed REASON FOR VISIT OB 4wk f/u -- liz starks PLAN OF CARE Activity Details Follow Up 4 Weeks Reason: VITAL SIGNS Height 71 in 2017-07-31 Weight 333.9 lbs 2017-07-31 Temperature 98.0 degrees Fahrenheit 2017-07-31 BMI 46.57 kg/m2 2017-07-31 Blood pressure systolic 132 mmHg 2017-07-31 Blood pressure diastolic 80 mmHg 2017-07-31 MEDICATIONS Medication Instructions Dosage Frequency Start Date End Date Duration Status Qvar 80 MCG/ACT Inhalation Twice a day 1 puff 12h Active Ventolin HFA 108 (90 Base) MCG/ACT Inhalation every 6 hrs 2 puffs as needed 6h Active RESULTS No Results PROCEDURES Procedure Date Ordered Result Body Site URINE-NO MICRO July 31, 2017 LAB NOT BILLED BY [facility] July 31, 2017 VENIPUNCT, ROUTINE* July 31, 2017 INSTRUCTIONS MEDICATIONS ADMINISTERED No Known Medications MEDICAL (GENERAL) HISTORY Type Description Date Medical History Preeclampsia history Medical History Asthma Medical History HSV 1&2 Medical History Hypertension Surgical History abdomen laparascopy Surgical History intestine surgery as Hospitalization History childbirth Hospitalization History [facility] for 09/2017
--- OUTSIDE RECORDS SUMMARY | 2018-01-26 16:23 | XMS REPORT ---
Author Author BRINA CM Organization [facility] Address [address] [place] [address] Care Team Providers Care Supervisor Aircraft Maintenance Name Role Phone BRINA CM Unavailable PROBLEMS Type Condition ICD9-CM Code XTV55-ZB Code Onset Dates Condition Status SNOMED Code Problem Obesity affecting in third trimester O99.213 Active 482001959833 Problem Moderate persistent asthma with exacerbation J45.41 Active 643110671 ALLERGIES No Information ENCOUNTERS Encounter Location Date Diagnosis [facility] [id number] [place] [address] 80763- 7733 Nov, [facility] [id number] [place] [address] 56581- 1006 Sep, [facility] [id number] [place] [address] 19603- 5473 Sep, [facility] [id number] [place] [address] 11439- 2017 Sep, 36 weeks gestation of Z3A.36 [place] [id number] [place] [address] 29587- 3000 Sep, BMI 45.0-49.9, adult Z68.42 ; Third trimester Z34.93 ; 35 weeks gestation of Z3A.35 ; Obesity affecting in third trimester O99.213 and Vaginal discharge N89.8 [place] [id number] [place] [address] 77280- 8156 Sep, [place] [id number] [place] [address] 47109- 5473 Sep, [facility] [id number] [place] [address] 95417- 4232 Sep, Third trimester Z34.93 ; 34 weeks gestation of Z3A.34 ; Current with history of pre-term labor in third trimester O09.213 and Obesity affecting in third trimester O99.213 [place] [id number] [place] [address] 39521- 3794 Sep, [facility] [id number] [place] [address] 58336- 0579 Sep, [facility]ALK IN [facility] [id number] [place] [address] 77888 -1111 Aug, Acute maxillary sinusitis, recurrence not specified J01.00 ; Moderate persistent asthma with exacerbation J45.41 and Chest congestion R09.[address] 93626- 1723 Aug, Third trimester Z34.93 ; 32 weeks gestation of Z3A.32 ; Obesity affecting in third trimester O99.213 and BMI 45.0-49.9, adult Z68.42 [id number] [place] [address] 68194- 1840 Aug, [id number] [place] [address] 62795- 8349 Aug, 30 weeks gestation of Z3A.30 ; Third trimester Z34.93 ; Nausea/vomiting in O21.9 ; Marijuana use F12.90 ; Obesity affecting in third trimester O99.213 and Encounter for immunization Z23 [id number] [place] [address] 26616- 0318 Aug, [place] [id number] [place] [address] 81453- 3818 July, [address] 81239- 4425 July, Decreased movements in second trimester, single or unspecified fetus O36.8120 [place] [address] 14185- 7649 July, Decreased movements in second trimester, single or unspecified fetus O36.8120 [place] [address] [address], [place] [address]- 0198 July, [place] [address], [place] [address]- 4400 July, Multigravida in second trimester Z34.82 ; 26 weeks gestation of Z3A.26 ; Moderate persistent asthma with exacerbation J45.41 and Obesity affecting in second trimester O99.212 [place] [address] [address] [place] [address] 47193- 9720 Jun, [place] [address] [place] [address] 58539- 0075 Jun, Multigravida in second trimester Z34.82 ; Normal in multigravida Z34.80 ; 22 weeks gestation of Z3A.22 ; Obesity affecting in second trimester O99.212 ; Herpesviral infection, unspecified B00.9 and Other viral diseases complicating , second trimester O98.512 [place] [address], [place] [address]- 4397 Jun, IMMUNIZATIONS No Known Immunizations SOCIAL HISTORY Never Assessed REASON FOR VISIT [facility] Intake PLAN OF CARE VITAL SIGNS MEDICATIONS Unknown [...]
--- OUTSIDE RECORDS SUMMARY | 2018-01-26 16:23 | XMS REPORT ---
Author Author BRINA CM Organization [facility] Address [address] [place] [address] Care Team Providers Care Sports Clerk Name Role Phone BRINA CM Unavailable PROBLEMS Type Condition ICD9-CM Code VIX74-MT Code Onset Dates Condition Status SNOMED Code Problem Obesity affecting in third trimester O99.213 Active 238823725900 Problem Moderate persistent asthma with exacerbation J45.41 Active 723021604 ALLERGIES No Information ENCOUNTERS Encounter Location Date Diagnosis [facility] [id number] [place] [address] 49437- 9848 Nov, [facility] [id number] [place] [address] 27353- 6708 Sep, [facility] [id number] [place] [address] 32986- 4678 Sep, [facility] [id number] [place] [address] 76964- 3825 Sep, 36 weeks gestation of Z3A.36 [place] [id number] [place] [address] 90421- 4513 Sep, BMI 45.0-49.9, adult Z68.42 ; Third trimester Z34.93 ; 35 weeks gestation of Z3A.35 ; Obesity affecting in third trimester O99.213 and Vaginal discharge N89.8 [place] [id number] [place] [address] 35427- 3516 Sep, [place] [id number] [place] [address] 91308- 6026 Sep, [place] [id number] [place] [address] 49027- 0368 Sep, Third trimester Z34.93 ; 34 weeks gestation of Z3A.34 ; Current with history of pre-term labor in third trimester O09.213 and Obesity affecting in third trimester O99.213 [place] [id number] [place] [address] 23850- 6352 Sep, [facility] [id number] [place] [address] 45081- 2417 Sep, [facility]ALK IN [facility] [id number] [place] [address] 70181 -2945 Aug, Acute maxillary sinusitis, recurrence not specified J01.00 ; Moderate persistent asthma with exacerbation J45.41 and Chest congestion R09.[address] 02112- 9890 Aug, Third trimester Z34.93 ; 32 weeks gestation of Z3A.32 ; Obesity affecting in third trimester O99.213 and BMI 45.0-49.9, adult Z68.42 [id number] [place] [address] 18313- 6220 Aug, [place] [id number] [place] [address] 23563- 5668 Aug, 30 weeks gestation of Z3A.30 ; Third trimester Z34.93 ; Nausea/vomiting in O21.9 ; Marijuana use F12.90 ; Obesity affecting in third trimester O99.213 and Encounter for immunization Z23 [id number] [place] [address] 85945- 2801 Aug, [place] [id number] [place] [address] 86383- 2687 July, [address] 16951- 9944 July, Decreased movements in second trimester, single or unspecified fetus O36.8120 [place] [address] 84761- 3208 July, Decreased movements in second trimester, single or unspecified fetus O36.8120 [place] [address], [place] [address]- 5078 July, [place] [address], [place] [address]- 5762 July, Multigravida in second trimester Z34.82 ; 26 weeks gestation of Z3A.26 ; Moderate persistent asthma with exacerbation J45.41 and Obesity affecting in second trimester O99.212 [place] [address] [address], [place] [address]- 3076 Jun, [place] [address] [place] [address] 03898- 8975 Jun, [place] [address] [place] [address] 84440- 3960 Jun, Multigravida in second trimester Z34.82 ; [...]
--- OUTSIDE RECORDS SUMMARY | 2018-01-26 16:23 | XMS REPORT ---
Author Author BRINA CM Organization [facility] Address [address] [place] [address] Care Team Providers Care Ironworker Foreman Name Role Phone BRINA CM Unavailable PROBLEMS Type Condition ICD9-CM Code PSJ29-NE Code Onset Dates Condition Status SNOMED Code Problem Obesity affecting in third trimester O99.213 Active 971843142128 Problem Moderate persistent asthma with exacerbation J45.41 Active 530353569 ALLERGIES No Information ENCOUNTERS Encounter Location Date Diagnosis [facility] [id number] [place] [address] 43646- 4487 Nov, [facility] [id number] [place] [address] 55401- 5417 Sep, [facility] [id number] [place] [address] 40743- 2240 Sep, [facility] [id number] [place] [address] 26005- 0447 Sep, 36 weeks gestation of Z3A.36 [place] [id number] [place] [address] 21982- 2185 Sep, BMI 45.0-49.9, adult Z68.42 ; Third trimester Z34.93 ; 35 weeks gestation of Z3A.35 ; Obesity affecting in third trimester O99.213 and Vaginal discharge N89.8 [place] [id number] [place] [address] 33209- 0863 Sep, [place] [id number] [place] [address] 16991- 8336 Sep, [place] [id number] [place] [address] 56572- 6947 Sep, Third trimester Z34.93 ; 34 weeks gestation of Z3A.34 ; Current with history of pre-term labor in third trimester O09.213 and Obesity affecting in third trimester O99.213 [place] [id number] [place] [address] 67410- 7580 Sep, [facility] [id number] [place] [address] 84311- 6222 Sep, [facility] WALK IN [facility] [id number] [place] [address] 13245 -4656 Aug, Acute maxillary sinusitis, recurrence not specified J01.00 ; Moderate persistent asthma with exacerbation J45.41 and Chest congestion R09.[address] 79822- 2114 Aug, Third trimester Z34.93 ; 32 weeks gestation of Z3A.32 ; Obesity affecting in third trimester O99.213 and BMI 45.0-49.9, adult Z68.[id number] [place] [address] 94529- 1971 Aug, [place] [id number] [place] [address] 84465- 7543 Aug, 30 weeks gestation of Z3A.30 ; Third trimester Z34.93 ; Nausea/vomiting in O21.9 ; Marijuana use F12.90 ; Obesity affecting in third trimester O99.213 and Encounter for immunization Z23 [address] [id number] [place] [address] 12624- 6114 Aug, [place] [id number] [place] [address] 58592- 1605 July, [address] 93865- 7392 July, Decreased movements in second trimester, single or unspecified fetus O36.8120 [place] [address] 76303- 2710 July, Decreased movements in second trimester, single or unspecified fetus O36.8120 [place] [address] [address]- 4678 July, [place] [address] [address] 5469 July, Multigravida in second trimester Z34.82 ; 26 weeks gestation of Z3A.26 ; Moderate persistent asthma with exacerbation J45.41 and Obesity affecting in second trimester O99.212 [place] [address] [place] [address] 94436- 4793 Jun, [place] [address] [place] [address] 73524- 2108 Jun, Multigravida in second trimester Z34.82 ; Normal in multigravida Z34.80 ; 22 weeks gestation of Z3A.22 ; Obesity affecting in second trimester O99.212 ; Herpesviral infection, unspecified B00.9 and Other viral diseases complicating , second trimester O98.512 [place] [address] [address]- 5015 Jun, IMMUNIZATIONS No Known Immunizations SOCIAL HISTORY Never Assessed REASON FOR VISIT Medication refill request PLAN OF CARE VITAL SIGNS MEDICATIONS Medication Instructions Dosage Frequency Start Date End Date Duration Status Albuterol Sulfate (2.5 MG/3ML) 0.083% Inhalation Three times a day 3 ml as needed 8h Sep, Active RESULTS No Results PROCEDURES No Known procedures INSTRUCTIONS MEDICATIONS ADMINISTERED No Known Medications MEDICAL (GENERAL) HISTORY Type Description Date Medical History Preeclampsia history Medical History Asthma Medical History HSV 1&2 Medical History Hypertension Surgical History abdomen laparascopy Surgical History intestine surgery as infant Hospitalization History childbirth Hospitalization History [facility] for 09/2017
--- OUTSIDE RECORDS SUMMARY | 2018-01-26 16:23 | XMS REPORT ---
Author Author BRINA CM Organization [facility] Address [address] [place] [address] Care Team Providers Care Check Viewer Name Role Phone BRINA CM Unavailable PROBLEMS Type Condition ICD9-CM Code MNM16-FW Code Onset Dates Condition Status SNOMED Code Problem Obesity affecting in third trimester O99.213 Active 111483344084 Problem Moderate persistent asthma with exacerbation J45.41 Active 458521876 ALLERGIES No Information ENCOUNTERS Encounter Location Date Diagnosis [facility] [id number] [place] [address] 11072- 5724 Nov, [facility] [id number] [place] [address] 59771- 5401 Sep, [facility] [id number] [place] [address] 51784- 2007 Sep, [facility] [id number] [place] [address] 56152- 8449 Sep, 36 weeks gestation of Z3A.36 [place] [id number] [place] [address] 79140- 7598 Sep, BMI 45.0-49.9, adult Z68.42 ; Third trimester Z34.93 ; 35 weeks gestation of Z3A.35 ; Obesity affecting in third trimester O99.213 and Vaginal discharge N89.8 [place] [id number] [place] [address] 65487- 5209 Sep, [place] [id number] [place] [address] 04803- 8570 Sep, [place] [id number] [place] [address] 65865- 8625 Sep, Third trimester Z34.93 ; 34 weeks gestation of Z3A.34 ; Current with history of pre-term labor in third trimester O09.213 and Obesity affecting in third trimester O99.213 [place] [id number] [place] [address] 98007- 9976 Sep, [facility] [id number] [place] [address] 15209- 3742 Sep, [facility] WALK IN [facility] [id number] [place] [address] 08863 -4670 Aug, Acute maxillary sinusitis, recurrence not specified J01.00 ; Moderate persistent asthma with exacerbation J45.41 and Chest congestion R09.[address] 28483- 4294 Aug, Third trimester Z34.93 ; 32 weeks gestation of Z3A.32 ; Obesity affecting in third trimester O99.213 and BMI 45.0-49.9, adult Z68.42 [address] [id number] [place] [address] 09111- 5349 Aug, [place] [id number] [place] [address] 77077- 8023 Aug, 30 weeks gestation of Z3A.30 ; Third trimester Z34.93 ; Nausea/vomiting in O21.9 ; Marijuana use F12.90 ; Obesity affecting in third trimester O99.213 and Encounter for immunization Z23 [address] [id number] [place] [address] 42366- 4527 Aug, [place] [id number] [place] [address] 59784- 3215 July, [address] 96445- 8849 July, Decreased movements in second trimester, single or unspecified fetus O36.8120 [place] [address] 35471- 3872 July, Decreased movements in second trimester, single or unspecified fetus O36.8120 [place] [address] [address]- 5643 July, [place] [address] [address]- 3114 July, Multigravida in second trimester Z34.82 ; 26 weeks gestation of Z3A.26 ; Moderate persistent asthma with exacerbation J45.41 and Obesity affecting in second trimester O99.212 [place] [address] [place] [address] 57366- 4446 Jun, [place] [address] [place] [address] 29609- 2214 Jun, Multigravida in second trimester Z34.82 ; Normal in multigravida Z34.80 ; 22 weeks gestation of Z3A.22 ; Obesity affecting in second trimester O99.212 ; Herpesviral infection, unspecified B00.9 and Other viral diseases complicating , second trimester O98.512 [place] [address], [place] [address]- 0573 Jun, IMMUNIZATIONS No Known Immunizations SOCIAL HISTORY Never Assessed REASON FOR VISIT FYI - Labor PLAN OF CARE VITAL SIGNS MEDICATIONS Unknown [...]
--- OUTSIDE RECORDS SUMMARY | 2018-01-26 16:23 | XMS REPORT ---
Author Author CRISTINA GUZMÁN Organization [facility] Address [address] [place] [address] Care Team Providers Care Check Out Clerk Name Role Phone CRISTINA GUZMÁN Unavailable PROBLEMS Type Condition ICD9-CM Code VVE04-HO Code Onset Dates Condition Status SNOMED Code Problem Obesity affecting in third trimester O99.213 Active 739360620735 Problem Moderate persistent asthma with exacerbation J45.41 Active 645108728 ALLERGIES No Information ENCOUNTERS Encounter Location Date Diagnosis [place] [id number] [place] [address] 85971- 5414 Nov, [place] [id number] [place] [address] 41155- 6162 Sep, [place] [id number] [place] [address] 00171- 8787 Sep, [place] [id number] [place] [address] 26092- 7768 Sep, 36 weeks gestation of Z3A.36 [place] [id number] [place] [address] 84892- 5056 Sep, BMI 45.0-49.9, adult Z68.42 ; Third trimester Z34.93 ; 35 weeks gestation of Z3A.35 ; Obesity affecting in third trimester O99.213 and Vaginal discharge N89.8 [place] [id number] [place] [address] 05688- 8588 Sep, [place] [id number] [place] [address] 94359- 7951 Sep, [place] [id number] [place] [address] 50825- 6830 Sep, Third trimester Z34.93 ; 34 weeks gestation of Z3A.34 ; Current with history of pre-term labor in third trimester O09.213 and Obesity affecting in third trimester O99.213 [place] [id number] [place] [address] 06744- 7697 Sep, [facility] [id number] [place] [address] 29695- 9489 Sep, [facility] [id number] [place] [address] 73825 -7960 Aug, Acute maxillary sinusitis, recurrence not specified J01.00 ; Moderate persistent asthma with exacerbation J45.41 and Chest congestion R09.89 [address] [id number] [place] [address] 81686- 9684 Aug, Third trimester Z34.93 ; 32 weeks gestation of Z3A.32 ; Obesity affecting in third trimester O99.213 and BMI 45.0-49.9, adult Z68.42 [address] [address] [place] [address] 38558- 6165 Aug, [place] [address] [place] [address] 23494- 1529 Aug, 30 weeks gestation of Z3A.30 ; Third trimester Z34.93 ; Nausea/vomiting in O21.9 ; Marijuana use F12.90 ; Obesity affecting in third trimester O99.213 and Encounter for immunization Z23 [address] [id number] [place] [address] 31438- 7736 Aug, [place] [id number] [place] [address] 77368- 1236 July, [address] 81031- 5366 July, Decreased movements in second trimester, single or unspecified fetus O36.[address] 24358- 8851 July, Decreased movements in second trimester, single or unspecified fetus O36.8120 [place] [address], [place] [address]- 4114 July, [place] [address] 4249 July, Multigravida in second trimester Z34.82 ; 26 weeks gestation of Z3A.26 ; Moderate persistent asthma with exacerbation J45.41 and Obesity affecting in second trimester O99.212 [place] [address] [place] [address] 69601- 5453 Jun, [place] [address] [place] [address] 71832- 7942 Jun, Multigravida in second trimester Z34.82 ; Normal in multigravida Z34.80 ; 22 weeks gestation of Z3A.22 ; Obesity affecting in second trimester O99.212 ; Herpesviral infection, unspecified B00.9 and Other viral diseases complicating , second trimester O98.512 [place] [address], [place] [address]- 8224 Jun, IMMUNIZATIONS No Known Immunizations SOCIAL HISTORY Never Assessed REASON FOR VISIT Congestion PLAN OF CARE Activity Details Follow Up w/ PCP Reason:breathing problems VITAL SIGNS MEDICATIONS Medication Instructions Dosage Frequency Start Date End Date Duration Status Augmentin 875-125 MG Orally every 12 hrs 1 tablet 12h Aug, Sep, 07 days Active Ventolin HFA 108 (90 Base) MCG/ACT Inhalation every 6 hrs 2 puffs as needed 6h Active Qvar 80 MCG/ACT Inhalation Twice a day 1 puff 12h Nov, Active PredniSONE 20 mg Orally Once a day 2 tablets 24h Aug, Sep, 05 days Active RESULTS No Results PROCEDURES No Known procedures INSTRUCTIONS MEDICATIONS ADMINISTERED No Known Medications MEDICAL (GENERAL) HISTORY Type Description Date Medical History Preeclampsia history Medical History Asthma Medical History HSV 1&2 Medical History Hypertension Surgical History abdomen laparascopy Surgical History intestine surgery as Hospitalization History childbirth Hospitalization History [facility] for 09/2017
--- OUTSIDE RECORDS SUMMARY | 2018-01-26 16:23 | XMS REPORT ---
Author Author BRINA CM Organization [facility] Address [address] [place] [address] Care Team Providers Care Jai Alai Player Name Role Phone BRINA CM Unavailable PROBLEMS Type Condition ICD9-CM Code MSC59-VG Code Onset Dates Condition Status SNOMED Code Problem Obesity affecting in third trimester O99.213 Active 759520452972 Problem Moderate persistent asthma with exacerbation J45.41 Active 272899662 ALLERGIES No Information ENCOUNTERS Encounter Location Date Diagnosis [facility] [id number] [place] [address] 46154- 9905 Nov, [facility] [id number] [place] [address] 87914- 0309 Sep, [facility] [id number] [place] [address] 64074- 7935 Sep, [facility] [id number] [place] [address] 62613- 2786 Sep, 36 weeks gestation of Z3A.36 [place] [id number] [place] [address] 76190- 7615 Sep, BMI 45.0-49.9, adult Z68.42 ; Third trimester Z34.93 ; 35 weeks gestation of Z3A.35 ; Obesity affecting in third trimester O99.213 and Vaginal discharge N89.8 [place] [id number] [place] [address] 34867- 8826 Sep, [place] [id number] [place] [address] 14328- 2250 Sep, [facility] [id number] [place] [address] 43991- 7527 Sep, Third trimester Z34.93 ; 34 weeks gestation of Z3A.34 ; Current with history of pre-term labor in third trimester O09.213 and Obesity affecting in third trimester O99.213 [place] [id number] [place] [address] 25092- 1312 Sep, [facility] [id number] [place] [address] 98850- 1015 Sep, [facility] WALK IN [facility] [id number] [place] [address] 04554 -9659 Aug, Acute maxillary sinusitis, recurrence not specified J01.00 ; Moderate persistent asthma with exacerbation J45.41 and Chest congestion R09.[address] 37018- 1754 Aug, Third trimester Z34.93 ; 32 weeks gestation of Z3A.32 ; Obesity affecting in third trimester O99.213 and BMI 45.0-49.9, adult Z68.42 [id number] [place] [address] 55121- 4971 Aug, [place] [address] [place] [address] 75863- 2605 Aug, 30 weeks gestation of Z3A.30 ; Third trimester Z34.93 ; Nausea/vomiting in O21.9 ; Marijuana use F12.90 ; Obesity affecting in third trimester O99.213 and Encounter for immunization Z23 [address] [id number] [place] [address] 43944- 0658 Aug, [place] [id number] [place] [address] 27981- 7375 July, [address] 74777- 2281 July, Decreased movements in second trimester, single or unspecified fetus O36.8120 [place] [address] 52693- 8519 July, Decreased movements in second trimester, single or unspecified fetus O36.8120 [place] [address], [place] [address]- 8000 July, [place] [address], [place] [address]- 1313 July, Multigravida in second trimester Z34.82 ; 26 weeks gestation of Z3A.26 ; Moderate persistent asthma with exacerbation J45.41 and Obesity affecting in second trimester O99.212 [place] [address] [place] [address] 88314- 6626 Jun, [place] [id number] [place] [address] 23925- 1478 Jun, Multigravida in second trimester Z34.82 ; Normal in multigravida Z34.80 ; 22 weeks gestation of Z3A.22 ; Obesity affecting in second trimester O99.212 ; Herpesviral infection, unspecified B00.9 and Other viral diseases complicating , second trimester O98.512 [place] [address], [place] [address]- 1276 Jun, IMMUNIZATIONS No Known Immunizations SOCIAL HISTORY Never Assessed REASON FOR VISIT Medication refill request PLAN OF CARE VITAL SIGNS MEDICATIONS Medication Instructions Dosage Frequency Start Date End Date Duration Status Ventolin HFA 108 (90 Base) MCG/ACT Inhalation every 6 hrs 2 puffs as needed 6h Active Qvar 80 MCG/ACT Inhalation Twice a day 1 puff 12h Nov, 30 days Active RESULTS No Results PROCEDURES No Known procedures INSTRUCTIONS MEDICATIONS ADMINISTERED No Known Medications MEDICAL (GENERAL) HISTORY Type Description Date Medical History Preeclampsia history Medical History Asthma Medical History HSV 1&2 Medical History Hypertension Surgical History abdomen laparascopy Surgical History intestine surgery as infant Hospitalization History childbirth Hospitalization History [facility] for 09/2017
--- OUTSIDE RECORDS SUMMARY | 2018-01-26 16:23 | XMS REPORT ---
Author Author BRINA CM Organization [facility] Address [address] [place] [address] Care Team Providers Care Waiter Name Role Phone BRINA CM Unavailable PROBLEMS Type Condition ICD9-CM Code BCX45-MH Code Onset Dates Condition Status SNOMED Code Problem Obesity affecting in third trimester O99.213 Active 560044461565 Problem Moderate persistent asthma with exacerbation J45.41 Active 402253469 ALLERGIES No Information ENCOUNTERS Encounter Location Date Diagnosis [facility] [id number] [place] [address] 44622- 3124 Nov, [facility] [id number] [place] [address] 98774- 9946 Sep, [facility] [id number] [place] [address] 96187- 3371 Sep, [facility] [id number] [place] [address] 67712- 7111 Sep, 36 weeks gestation of Z3A.36 [place] [id number] [place] [address] 22763- 4106 Sep, BMI 45.0-49.9, adult Z68.42 ; Third trimester Z34.93 ; 35 weeks gestation of Z3A.35 ; Obesity affecting in third trimester O99.213 and Vaginal discharge N89.8 [place] [id number] [place] [address] 09297- 7890 Sep, [place] [id number] [place] [address] 19618- 2343 Sep, [place] [id number] [place] [address] 51354- 5914 Sep, Third trimester Z34.93 ; 34 weeks gestation of Z3A.34 ; Current with history of pre-term labor in third trimester O09.213 and Obesity affecting in third trimester O99.213 [place] [id number] [place] [address] 70046- 0992 Sep, [facility] [id number] [place] [address] 56916- 1281 Sep, [facility] WALK IN [facility] [id number] [place] [address] 68051 -2923 Aug, Acute maxillary sinusitis, recurrence not specified J01.00 ; Moderate persistent asthma with exacerbation J45.41 and Chest congestion R09.[address] 16264- 8630 Aug, Third trimester Z34.93 ; 32 weeks gestation of Z3A.32 ; Obesity affecting in third trimester O99.213 and BMI 45.0-49.9, adult Z68.42 [address] [id number] [place] [address] 00250- 8294 Aug, [place] [id number] [place] [address] 38998- 6100 Aug, 30 weeks gestation of Z3A.30 ; Third trimester Z34.93 ; Nausea/vomiting in O21.9 ; Marijuana use F12.90 ; Obesity affecting in third trimester O99.213 and Encounter for immunization Z23 [place] [id number] [place] [address] 97918- 8043 Aug, [place] [id number] [place] [address] 35762- 1360 July, [address] 74712- 3707 July, Decreased movements in second trimester, single or unspecified fetus O36.8120 [place] [address] 81070- 6790 July, Decreased movements in second trimester, single or unspecified fetus O36.8120 [place] [address] [address]- 0869 July, [place] [address] [address]- 6941 July, Multigravida in second trimester Z34.82 ; 26 weeks gestation of Z3A.26 ; Moderate persistent asthma with exacerbation J45.41 and Obesity affecting in second trimester O99.212 [place] [address] [address]- 6653 Jun, [place] [address] [place] [address] 65812- 1736 Jun, [place] [address] [place] [address] 88713- 0784 Jun, Multigravida in second trimester Z34.82 ; [...]
--- OUTSIDE RECORDS SUMMARY | 2018-01-26 16:23 | XMS REPORT ---
Author Author BRINA CM Organization [facility] Address [address] [place] [address] Care Team Providers Care [employer] Manager Name Role Phone BRINA CM Unavailable PROBLEMS Type Condition ICD9-CM Code [id number] Code Onset Dates Condition Status SNOMED Code Problem Obesity affecting in third trimester O99.213 Active 787072075612 Problem Moderate persistent asthma with exacerbation J45.41 Active 422808203 ALLERGIES No Information ENCOUNTERS Encounter Location Date Diagnosis [facility] [id number] [place] [address] 34944- 7402 Nov, [facility] [id number] [place] [address] 08599- 7556 Sep, [facility] [id number] [place] [address] 95321- 9781 Sep, [facility] [id number] [place] [address] 41621- 7063 Sep, 36 weeks gestation of Z3A.36 [place] [id number] [place] [address] 21101- 5498 Sep, BMI 45.0-49.9, adult Z68.42 ; Third trimester Z34.93 ; 35 weeks gestation of Z3A.35 ; Obesity affecting in third trimester O99.213 and Vaginal discharge N89.8 [place] [id number] [place] [address] 50302- 0608 Sep, [place] [id number] [place] [address] 15070- 5743 Sep, [place] [id number] [place] [address] 55154- 3855 Sep, Third trimester Z34.93 ; 34 weeks gestation of Z3A.34 ; Current with history of pre-term labor in third trimester O09.213 and Obesity affecting in third trimester O99.213 [place] [id number] [place] [address] 53375- 1718 Sep, [facility] [id number] [place] [address] 71800- 1848 Sep, [facility]ALK [facility] [id number] [place] [address] 31260 -4342 Aug, Acute maxillary sinusitis, recurrence not specified J01.00 ; Moderate persistent asthma with exacerbation J45.41 and Chest congestion R09.[address] 56053- 8767 Aug, Third trimester Z34.93 ; 32 weeks gestation of Z3A.32 ; Obesity affecting in third trimester O99.213 and BMI 45.0-49.9, adult Z68.42 [place] [id number] [place] [address] 69575- 7851 Aug, [place] [id number] [place] [address] 85216- 3189 Aug, 30 weeks gestation of Z3A.30 ; Third trimester Z34.93 ; Nausea/vomiting in O21.9 ; Marijuana use F12.90 ; Obesity affecting in third trimester O99.213 and Encounter for immunization Z23 [place] [id number] [place] [address] 39350- 9383 Aug, [place] [id number] [place] [address] 56815- 6060 July, [address] 81027- 8852 July, Decreased movements in second trimester, single or unspecified fetus O36.8120 [place] [address] 34014- 4532 July, Decreased movements in second trimester, single or unspecified fetus O36.8120 [place] [address] [address] 2[address] July, [place] [id number] [place] [address] 54470- 1924 July, Multigravida in second trimester Z34.82 ; 26 weeks gestation of Z3A.26 ; Moderate persistent asthma with exacerbation J45.41 and Obesity affecting in second trimester O99.212 [place] [id number] [place] [address] 57758- 3133 Jun, [place] [id number] [place] [address] 81706- 1425 Jun, Multigravida in second trimester Z34.82 ; Normal in multigravida Z34.80 ; 22 weeks gestation of Z3A.22 ; Obesity affecting in second trimester O99.212 ; Herpesviral infection, unspecified B00.9 and Other viral diseases complicating , second trimester O98.512 [place] [address] [place] [address] 99531- 3038 Jun, IMMUNIZATIONS No Known Immunizations SOCIAL HISTORY Never Assessed REASON FOR VISIT OB 2wk f/u-awoods PLAN OF CARE Activity Details Follow Up 2 Weeks Reason: VITAL SIGNS Height 71 in 2017-09-11 Weight 344.6 lbs 2017-09-11 Temperature 98.0 degrees Fahrenheit 2017-09-11 Heart Rate 85 bpm 2017-09-11 Respiratory Rate 20 2017-09-11 BMI 48.062 kg/m2 2017-09-11 Blood pressure systolic 130 mmHg 2017-09-11 Blood pressure diastolic 72 mmHg 2017-09-11 MEDICATIONS Medication Instructions Dosage Frequency Start Date End Date Duration Status Ventolin HFA 108 (90 Base) MCG/ACT Inhalation every 6 hrs 2 puffs as needed 6h Active Qvar 80 MCG/ACT Inhalation Twice a day 1 puff 12h 28 Nov, 2017 30 days Active Zofran 8 MG Orally q6hrs PRN 1 tablet Aug, 30 day(s) Active RESULTS Name Result Date Reference Range UA OB DIP (IN HOUSE) Glucose neg Protein neg PROCEDURES Procedure Date Ordered Result Body Site URINE-NO MICRO September 11, 2017 INSTRUCTIONS MEDICATIONS ADMINISTERED No Known Medications MEDICAL (GENERAL) HISTORY Type Description Date Medical History Preeclampsia history Medical History Asthma Medical History HSV 1&2 Medical History Hypertension Surgical History abdomen laparascopy Surgical History intestine surgery as Hospitalization History childbirth Hospitalization History [facility] for 09/2017
--- OUTSIDE RECORDS SUMMARY | 2018-01-26 16:24 | XMS REPORT ---
Author Author BRINA CM Organization [facility] Address [address] [place] [address] Care Team Providers Care Podiatric Assistant Name Role Phone BRINA CM Unavailable PROBLEMS Type Condition ICD9-CM Code JLM97-UC Code Onset Dates Condition Status SNOMED Code Problem Obesity affecting in third trimester O99.213 Active 263380128141 Problem Moderate persistent asthma with exacerbation J45.41 Active 693543353 ALLERGIES No Known Allergies ENCOUNTERS Encounter Location Date Diagnosis [facility] [id number] [place] [address] 90581- 4731 Nov, [place] [address] 96443- 0785 Oct, [facility] [id number] [place] [address] 29014- 8969 Sep, [place] [address] 85796- 0031 Sep, [facility] [id number] [place] [address] 65295- 5738 Sep, 36 weeks gestation of Z3A.36 [place] [id number] [place] [address] 52683- 2111 Sep, BMI 45.0-49.9, adult Z68.42 ; Third trimester Z34.93 ; 35 weeks gestation of Z3A.35 ; Obesity affecting in third trimester O99.213 and Vaginal discharge N89.8 [facility] [id number] [place] [address] 91215- 0267 Sep, [facility] [id number] [place] [address] 48358- 4787 Sep, [place] [address] [address]- 9427 Sep, Third trimester Z34.93 ; 34 weeks gestation of Z3A.34 ; Current with history of pre-term labor in third trimester O09.213 and Obesity affecting in third trimester O99.213 [facility] [id number] [place] [address] 93993- 1532 Sep, [place] [id number] [place] [address] 07192- 0747 Sep, [facility] WALK IN [facility] [id number] [place] [address] 34336 -5749 Aug, Acute maxillary sinusitis, recurrence not specified J01.00 ; Moderate persistent asthma with exacerbation J45.41 and Chest congestion R09.89 [place] [id number] [place] [address] 15152- 2376 Aug, Third trimester Z34.93 ; 32 weeks gestation of Z3A.32 ; Obesity affecting in third trimester O99.213 and BMI 45.0-49.9, adult Z68.42 [place] [id number] [place] [address] 00245- 4264 Aug, [place] [address] [place] [address] 45960- 5557 Aug, 30 weeks gestation of Z3A.30 ; Third trimester Z34.93 ; Nausea/vomiting in O21.9 ; Marijuana use F12.90 ; Obesity affecting in third trimester O99.213 and Encounter for immunization Z23 [place] [id number] [place] [address] 84452- 4601 Aug, [place] [id number] [place] [address] 65322- 8319 July, [place] [id number] [place] [address] 33492- 3614 July, Decreased movements in second trimester, single or unspecified fetus O36.8120 [place] [id number] [address]- 1517 July, Decreased movements in second trimester, single or unspecified fetus O36.8120 [place] [address], [place] [address]- 2712 July, [place] [id number] [place] [address] 89981- 8776 July, Multigravida in second trimester Z34.82 ; 26 weeks gestation of Z3A.26 ; Moderate persistent asthma with exacerbation J45.41 and Obesity affecting in second trimester O99.212 [place] [id number] [place] [address] 88730- 6578 Jun, [place] [address] [place] [address] 01209- 3696 Jun, Multigravida in second trimester Z34.82 ; Normal in multigravida Z34.80 ; 22 weeks gestation of Z3A.22 ; Obesity affecting in second trimester O99.212 ; Herpesviral infection, unspecified B00.9 and Other viral diseases complicating , second trimester O98.512 [place] [address] [place] [address] 52811- 9916 Jun, IMMUNIZATIONS No Known Immunizations SOCIAL HISTORY Never Assessed REASON FOR VISIT OB-intake--tcuppettRN PLAN OF CARE Activity Details Follow Up 4 Weeks Reason: VITAL SIGNS Height 71 in 2017-07-04 Weight 333.3 lbs 2017-07-04 Temperature 98.0 degrees Fahrenheit 2017-07-04 Heart Rate 90 bpm 2017-07-04 Respiratory Rate 24 2017-07-04 BMI 46.486 kg/m2 2017-07-04 Blood pressure systolic 126 mmHg 2017-07-04 Blood pressure diastolic 74 mmHg 2017-07-04 MEDICATIONS Medication Instructions Dosage Frequency Start Date End Date Duration Status Qvar 80 MCG/ACT Inhalation Twice a day 1 puff 12h Active Metronidazole 500 mg Orally 2 times a day 1 tablet 12h Jun,Jun 07 days Active Ventolin HFA 108 (90 Base) MCG/ACT Inhalation every 6 hrs 2 puffs as needed 6h Active RESULTS No Results PROCEDURES Procedure Date Ordered Result Body Site BLOOD TYPING, RH (D) July 04, 2017 COMPLETE CBC W/AUTO DIFF WBC July 04, 2017 BLOOD TYPING, ABO July 04, 2017 URINE TEST July 04, 2017 URINE CULTURE/COLONY COUNT July 04, 2017 TRICHOMONAS ASSAY W/OPTIC July 04, 2017 No Charge July 04, 2017 RBC ANTIBODY SCREEN July 04, 2017 ASSAY THYROID STIM HORMONE July 04, 2017 URINALYSIS, AUTO, W/O SCOPE July 04, 2017 RUBELLA ANTIBODY July 04, 2017 CULTURE, BACTERIA, OTHER July 04, 2017 DRUG TEST PRSMV DIR OPT OBS July 04, 2017 VENIPUNCT, ROUTINE* July 04, 2017 INSTRUCTIONS MEDICATIONS ADMINISTERED No Known Medications MEDICAL (GENERAL) HISTORY Type Description Date Medical History Preeclampsia history Medical History Asthma Medical History HSV 1&2 Medical History Hypertension Surgical History abdomen laparascopy Surgical History intestine surgery as infant Hospitalization History childbirth Hospitalization History [facility] for 09/2017
--- OUTSIDE RECORDS SUMMARY | 2018-01-26 16:24 | XMS REPORT ---
Author Author BRINA CM Organization [facility] Address [address] [place] [address] Care Team Providers Care General Intern Name Role Phone BRINA CM Unavailable PROBLEMS Type Condition ICD9-CM Code VHN54-OB Code Onset Dates Condition Status SNOMED Code Problem Obesity affecting in third trimester O99.213 Active 020140618583 Problem Moderate persistent asthma with exacerbation J45.41 Active 179445566 ALLERGIES No Information ENCOUNTERS Encounter Location Date Diagnosis [facility] [id number] [place] [address] 19628- 1225 Nov, [facility] [id number] [place] [address] 50670- 7226 Sep, [facility] [id number] [place] [address] 87137- 3767 Sep, [facility] [id number] [place] [address] 69173- 9310 Sep, 36 weeks gestation of Z3A.36 [place] [id number] [place] [address] 62507- 1571 Sep, BMI 45.0-49.9, adult Z68.42 ; Third trimester Z34.93 ; 35 weeks gestation of Z3A.35 ; Obesity affecting in third trimester O99.213 and Vaginal discharge N89.8 [place] [id number] [place] [address] 79368- 4514 Sep, [place] [id number] [place] [address] 39462- 3469 Sep, [place] [id number] [place] [address] 52394- 5917 Sep, Third trimester Z34.93 ; 34 weeks gestation of Z3A.34 ; Current with history of pre-term labor in third trimester O09.213 and Obesity affecting in third trimester O99.213 [place] [id number] [place] [address] 79142- 0927 Sep, [facility] [id number] [place] [address] 91958- 8490 Sep, [facility] WALK IN [facility] [id number] [place] [address] 04587 -1468 Aug, Acute maxillary sinusitis, recurrence not specified J01.00 ; Moderate persistent asthma with exacerbation J45.41 and Chest congestion R09.[address] 08148- 2614 Aug, Third trimester Z34.93 ; 32 weeks gestation of Z3A.32 ; Obesity affecting in third trimester O99.213 and BMI 45.0-49.9, adult Z68.42 [place] [id number] [place] [address] 76683- 2668 Aug, [place] [id number] [place] [address] 72869- 7244 Aug, 30 weeks gestation of Z3A.30 ; Third trimester Z34.93 ; Nausea/vomiting in O21.9 ; Marijuana use F12.90 ; Obesity affecting in third trimester O99.213 and Encounter for immunization Z23 [place] [id number] [place] [address] 65974- 3828 Aug, [place] [id number] [place] [address] 92427- 9544 July, [address] 53294- 4436 July, Decreased movements in second trimester, single or unspecified fetus O36.8120 [place] [address] 55176- 7088 July, Decreased movements in second trimester, single or unspecified fetus O36.8120 [facility] [address], [place] [address]- 6055 July, [place] [address] [address]- 1861 July, Multigravida in second trimester Z34.82 ; 26 weeks gestation of Z3A.26 ; Moderate persistent asthma with exacerbation J45.41 and Obesity affecting in second trimester O99.212 [place] [address], [place] [address]- 0719 Jun, [place] [address] [place] [address] 09539- 9923 Jun, [place] [address] [address]- 0725 Jun, Multigravida in second trimester Z34.82 ; Normal in multigravida Z34.80 ; 22 weeks gestation of Z3A.22 ; Obesity affecting in second trimester O99.212 ; Herpesviral infection, unspecified B00.9 and Other viral diseases complicating , second trimester O98.512 IMMUNIZATIONS No Known Immunizations SOCIAL HISTORY Never Assessed REASON FOR VISIT Non-stress test (NST)-ZABRINA [place] PLAN OF CARE VITAL SIGNS MEDICATIONS Unknown Medications RESULTS No Results PROCEDURES Procedure Date Ordered Result Body Site NON-STRESS TEST August 01, 2017 INSTRUCTIONS MEDICATIONS ADMINISTERED No Known Medications MEDICAL (GENERAL) HISTORY Type Description Date Medical History Preeclampsia history Medical History Asthma Medical History HSV 1&2 Medical History Hypertension Surgical History abdomen laparascopy Surgical History intestine surgery as infant Hospitalization History childbirth Hospitalization History [facility] for 09/2017
--- OUTSIDE RECORDS SUMMARY | 2018-01-26 16:24 | XMS REPORT ---
Author Author TOÑO BONILLA [facility] Address [address] [place] [address] Care Team Providers Care Stem Dryer Maintainer Name Role Phone CHAD TOÑO Unavailable PROBLEMS Type Condition ICD9-CM Code TST55-SJ Code Onset Dates Condition Status SNOMED Code Problem Obesity affecting in third trimester O99.213 Active 901199849938 Problem Moderate persistent asthma with exacerbation J45.41 Active 500956989 ALLERGIES No Information ENCOUNTERS Encounter Location Date Diagnosis [place] [id number] [place] [address] 33849- 3369 Oct, [place] [address] 38660- 1076 Oct, [facility] [id number] [place] [address] 81868- 5452 Sep, [place] [id number] [place] [address] 13937- 6104 Sep, [facility] [id number] [place] [address] 41515- 9695 Sep, 36 weeks gestation of Z3A.36 [place] [id number] [place] [address] 31496- 6012 Sep, BMI 45.0-49.9, adult Z68.42 ; Third trimester Z34.93 ; 35 weeks gestation of Z3A.35 ; Obesity affecting in third trimester O99.213 and Vaginal discharge N89.8 [place] [id number] [place] [address] 82622- 0698 Sep, [facility] [id number] [place] [address] 02118- 7332 Sep, [facility] [id number] [place] [address] 19946- 3436 Sep, Third trimester Z34.93 ; 34 weeks gestation of Z3A.34 ; Current with history of pre-term labor in third trimester O09.213 and Obesity affecting in third trimester O99.213 [facility] [id number] [place] [address] 65774- 9612 Sep, [facility] [address] 19231- 6717 Sep, [facility] [address] 62816 -9824 Aug, Acute maxillary sinusitis, recurrence not specified J01.00 ; Moderate persistent asthma with exacerbation J45.41 and Chest congestion R09.89 [place] [id number] [place] [address] 24592- 9984 Aug, Third trimester Z34.93 ; 32 weeks gestation of Z3A.32 ; Obesity affecting in third trimester O99.213 and BMI 45.0-49.9, adult Z68.42 [place] [address] 20363- 7120 Aug, [facility] [id number] [place] [address] 28151- 1580 Aug, 30 weeks gestation of Z3A.30 ; Third trimester Z34.93 ; Nausea/vomiting in O21.9 ; Marijuana use F12.90 ; Obesity affecting in third trimester O99.213 and Encounter for immunization Z23 [place] [id number] [place] [address] 19516- 9911 Aug, [place] [address] 17018- 3057 July, [facility] [id number] [place] [address] 18605- 3522 July, Decreased movements in second trimester, single or unspecified fetus O36.8120 [place] [address], [place] [address]- 7682 July, Decreased movements in second trimester, single or unspecified fetus O36.8120 [place] [address] [address]- 5694 July, [place] [id number] [address]- 7081 July, Multigravida in second trimester Z34.82 ; 26 weeks gestation of Z3A.26 ; Moderate persistent asthma with exacerbation J45.41 and Obesity affecting in second trimester O99.212 [place] [id number] [place] [address] 92952- 1180 Jun, [place] [address], [place] [address]- 7278 Jun, Multigravida in second trimester Z34.82 ; Normal in multigravida Z34.80 ; 22 weeks gestation of Z3A.22 ; Obesity affecting in second trimester O99.212 ; Herpesviral infection, unspecified B00.9 and Other viral diseases complicating , second trimester O98.512 [place] [address] [place] [address] 91523- 2184 Jun, IMMUNIZATIONS No Known Immunizations SOCIAL HISTORY Never Assessed REASON FOR VISIT triage--tcuppettRN PLAN OF CARE VITAL SIGNS MEDICATIONS Unknown [...]
--- OUTSIDE RECORDS SUMMARY | 2018-01-26 16:24 | XMS REPORT ---
Author Author BRINA CM Organization [facility] Address [address] [place] [address] Care Team Providers Care Metal Template Maker Name Role Phone BRINA CM Unavailable PROBLEMS Type Condition ICD9-CM Code PLH57-EQ Code Onset Dates Condition Status SNOMED Code Problem Obesity affecting in third trimester O99.213 Active 988208011643 Problem Moderate persistent asthma with exacerbation J45.41 Active [id number] ALLERGIES No Information ENCOUNTERS Encounter Location Date Diagnosis [facility] [id number] [place] [address] 19962- 9023 Nov, [facility] [id number] [place] [address] 89319- 4993 Oct, [facility] [id number] [place] [address] 28079- 8756 Oct, [facility] [id number] [place] [address] 68634- 2199 Sep, [place] [id number] [place] [address] 68539- 3422 Sep, [facility] [id number] [place] [address] 64743- 7500 Sep, 36 weeks gestation of Z3A.36 [facility] [id number] [place] [address] 23268- 5891 Sep, BMI 45.0-49.9, adult Z68.42 ; Third trimester Z34.93 ; 35 weeks gestation of Z3A.35 ; Obesity affecting in third trimester O99.213 and Vaginal discharge N89.8 [place] [place] [id number] [place] [address] 47995- 6347 Sep, [facility] [place] [id number] [place] [address] 84131- 1583 Sep, [facility] [id number] [place] [address] 29185- 8580 Sep, Third trimester Z34.93 ; 34 weeks gestation of Z3A.34 ; Current with history of pre-term labor in third trimester O09.213 and Obesity affecting in third trimester O99.213 [facility] [address] [address]- [address]592 Sep, [facility] [address] [address]- [address]118 Sep, [facility] [id number] [place] [address] 18471 -7184 Aug, Acute maxillary sinusitis, recurrence not specified J01.00 ; Moderate persistent asthma with exacerbation J45.41 and Chest congestion R09.89 [place] [id number] [place] [address] 22161- 4442 Aug, Third trimester Z34.93 ; 32 weeks gestation of Z3A.32 ; Obesity affecting in third trimester O99.213 and BMI 45.0-49.9, adult Z68.42 [facility] [id number] [place] [address] 79376- 4566 Aug, [facility] [id number] [place] [address] 58431- 7043 Aug, 30 weeks gestation of Z3A.30 ; Third trimester Z34.93 ; Nausea/vomiting in O21.9 ; Marijuana use F12.90 ; Obesity affecting in third trimester O99.213 and Encounter for immunization Z23 [address] [address]- [address] Aug, [facility] [id number] [place] [address] 68563- 0645 July, [place] [address] 78466- 6623 July, Decreased movements in second trimester, single or unspecified fetus O36.8120 [facility] [id number] [place] [address] 40348- 3964 July, Decreased movements in second trimester, single or unspecified fetus O36.8120 [facility] [place] [address] [place] [address] July, [facility] [place] [address] [place] [address] 43968- 4860 July, Multigravida in second trimester Z34.82 ; 26 weeks gestation of Z3A.26 ; Moderate persistent asthma with exacerbation J45.41 and Obesity affecting in second trimester O99.212 [facility] [place] [address] [place] [address] Jun, [facility] [address] [place] [address] Jun, Multigravida in second trimester Z34.82 ; Normal in multigravida Z34.80 ; 22 weeks gestation of Z3A.22 ; Obesity affecting in second trimester O99.212 ; Herpesviral infection, unspecified B00.9 and Other viral diseases complicating , second trimester O98.512 [facility] [place] [address] [place] [address] Jun, IMMUNIZATIONS No Known Immunizations SOCIAL HISTORY Never Assessed REASON FOR VISIT Presumptive Eligibility-APPROVED PLAN OF CARE VITAL SIGNS MEDICATIONS Unknown [...]
--- OUTSIDE RECORDS SUMMARY | 2018-01-26 16:24 | XMS REPORT | Continuity of Care Document ---
Author Author [facility] Organization [facility] Address Unknown Phone Unavailable Allergies Active Description Code Type Severity Reaction Onset Reported/Identified Relationship to Patient Clinical Status Yes No Known Drug Allergies [id number] Drug Allergy Unknown N/A 10/20/2012 Medications There is no data. Problems Date Dx Coded Attending Type Code Diagnosis Diagnosed By 10/20/2012 NELIA SAAB, SHEILA Barraza Ot 305.1 TOBACCO USE DISORDER 10/20/2012 NELIA SAAB, SHEILA Barraza Ot 493.92 ASTHMA, UNSPECIFIED, W (ACUTE) EXACERBAT 10/20/2012 ENLIA SAAB, SHEILA Barraza Ot 786.05 SHORTNESS OF BREATH 09/01/2017 BONILLA DO, TOÑO K Ot E86.0 DEHYDRATION 09/01/2017 BONILLA DO, TOÑO K Ot O21.2 LATE VOMITING OF 09/01/2017 BONILLA DO, TOÑO K Ot O99.283 ENDO, NUTRITIONAL AND METAB DISEASES COM 09/01/2017 BONILLA DO, TOÑO K Ot Z3A.31 31 WEEKS GESTATION OF 09/05/2017 BONILLA DO, TOÑO K Ot E86.0 DEHYDRATION 09/05/2017 BONILLA DO, TOÑO K Ot O21.2 LATE VOMITING OF 09/05/2017 BONILLA DO, TOÑO K Ot O99.283 ENDO, NUTRITIONAL AND METAB DISEASES COM 09/05/2017 BONILLA DO, TOÑO K Ot Z3A.31 31 WEEKS GESTATION OF 09/18/2017 BARBETTINA MENDIOLA DO Ot F12.90 CANNABIS USE, UNSPECIFIED, UNCOMPLICATED 09/18/2017 BETTINA ZAVALA DO Ot F17.210 NICOTINE DEPENDENCE, CIGARETTES, UNCOMPL 09/18/2017 BETTINA ZAVALA DO Ot J44.9 CHRONIC OBSTRUCTIVE PULMONARY DISEASE, U 09/18/2017 BETTINA ZAVALA DO Ot O09.33 SUPRVSN OF PREG W INSUFFICIENT ANTENAT C 09/18/2017 BARNIDGE DO, BETTINA E Ot O60.03 LABOR WITHOUT DELIVERY, THIRD TR 09/18/2017 BARNIDGE DO, BETTINA E Ot O99.213 OBESITY COMPLICATING , THIRD TR 09/18/2017 BARNIDGE DO, BETTINA E Ot O99.323 DRUG USE COMPLICATING , THIRD T 09/18/2017 BARNIDGE DO, BETTINA E Ot O99.333 SMOKING (TOBACCO) COMPLICATING 09/18/2017 BARNIDGE DO BETTINA E Ot O99.513 DISEASES OF THE RESP SYS COMP , 09/18/2017 BARNIDGE DO, BETTINA E Ot Z3A.33 33 WEEKS GESTATION OF 09/19/2017 BARNIDGE DO, BETTINA E Ot F12.90 CANNABIS USE, UNSPECIFIED, UNCOMPLICATED 09/19/2017 BARNIDGE DO, BETTINA E Ot F17.210 NICOTINE DEPENDENCE, CIGARETTES, UNCOMPL 09/19/2017 BARNIDGE DO, BETTINA E Ot J44.9 CHRONIC OBSTRUCTIVE PULMONARY DISEASE, U 09/19/2017 BARNIDGE DO BETTINA E Ot O09.33 SUPRVSN OF PREG W INSUFFICIENT ANTENAT C 09/19/2017 BARNIDGE DO BETTINA E Ot O60.03 LABOR WITHOUT DELIVERY, THIRD TR 09/19/2017 BARNIDGE DO BETTINA E Ot O99.213 OBESITY COMPLICATING , THIRD TR 09/19/2017 BARNIDGE DO BETTINA E Ot O99.323 DRUG USE COMPLICATING , THIRD T 09/19/2017 BARNIDGE DO BETTINA E Ot O99.333 SMOKING (TOBACCO) COMPLICATING 09/19/2017 BARNIDGE DO, BETTINA E Ot O99.513 DISEASES OF THE RESP SYS COMP , 09/19/2017 BARNIDGE DO, BETTINA E Ot Z3A.33 33 WEEKS GESTATION OF 09/19/2017 BARNIDGE DO, BETTINA E Ot F12.90 CANNABIS USE, UNSPECIFIED, UNCOMPLICATED 09/19/2017 BARNIDGE DO, BETTINA E Ot F17.210 NICOTINE DEPENDENCE, CIGARETTES, UNCOMPL 09/19/2017 BARNIDGE DO, BETTIAN E Ot J44.9 CHRONIC OBSTRUCTIVE PULMONARY DISEASE, U 09/19/2017 BETTINA ZAVALA DO Ot O09.33 SUPRVSN OF PREG W INSUFFICIENT ANTENAT C 09/19/2017 BETTINA ZAVALA DO Ot O60.03 LABOR WITHOUT DELIVERY, THIRD TR 09/19/2017 JERRYBETTINA Goldstein DO Ot O99.213 OBESITY COMPLICATING , THIRD TR 09/19/2017 BETTINA ZAVALA DO Ot O99.323 DRUG USE COMPLICATING , THIRD T 09/19/2017 BETTINA ZAVALA DO Ot O99.333 SMOKING (TOBACCO) COMPLICATING 09/19/2017 BETTINA ZAVALA DO Ot O99.513 DISEASES OF THE RESP SYS COMP , 09/19/2017 BETTINA ZAVALA DO Ot Z3A.33 33 WEEKS GESTATION OF 10/18/2017 Ot E66.01 MORBID ( SEVERE) OBESITY DUE TO EXCESS CA 10/18/2017 Ot J44.9 CHRONIC OBSTRUCTIVE PULMONARY DISEASE, U 10/18/2017 Ot O13.4 GESTATNL HTN WITHOUT SIGNIFICANT PROTEIN 10/18/2017 Ot O98.32 OTH INFECTIONS W SEXL MODE OF TRANSMISS 10/18/2017 Ot O99.214 OBESITY COMPLICATING CHILDBIRTH 10/18/2017 Ot O99.52 DISEASES OF THE RESPIRATORY SYSTEM COMPL 10/18/2017 Ot Z23 ENCOUNTER FOR IMMUNIZATION 10/18/2017 Ot Z37.0 SINGLE LIVE 10/18/2017 Ot Z3A.37 37 WEEKS GESTATION OF 10/18/2017 Ot Z68.42 BODY MASS INDEX (BMI) 45.0-49.9, ADULT Procedures Code Description Performed By Performed On [id number] DELIVERY OF PRODUCTS OF CONCEPTION, EXTE 10/16/2017 [id number] INTRODUCTION OF OTH HORMONE INTO PERIPH 10/16/2017 Results Test Result Range CBC - 07/31/17 10:12 WHITE BLOOD CELL COUNT 9.7 Thousand/uL 3.8-10.8 RED BLOOD CELL COUNT 4.03 Million/uL 3.80-5.10 HEMOGLOBIN 10.8 g/dL 11.7-15.5 HEMATOCRIT 33.5 % 35.0-45.0 MCV 83.1 fL 80.0-100.0 MCH 26.8 pg 27.0-33.0 MCHC 32.2 g/dL 32.0-36.0 RDW 12.6 % 11.0-15.0 PLATELET COUNT 304 Thousand/uL 140-400 MPV 9.4 fL 7.5-12.5 ABSOLUTE NEUTROPHILS 6548 cells/uL 8078-6279 ABSOLUTE LYMPHOCYTES 2095 cells/uL 850-3900 ABSOLUTE MONOCYTES 698 cells/uL 200-950 ABSOLUTE EOSINOPHILS 330 cells/uL 15-500 ABSOLUTE BASOPHILS 29 cells/uL 0-200 NEUTROPHILS 67.5 % NRG LYMPHOCYTES 21.6 % NRG MONOCYTES 7.2 % NRG EOSINOPHILS 3.4 % NRG BASOPHILS 0.3 % NRG Complete urinalysis with reflex to culture - 09/01/17 12:25 Urine color determination YELLOW NRG Urine clarity determination CLEAR NRG Urine pH measurement by test strip 5 5-9 Specific gravity of urine by test strip 1.025 1.016- 1.022 Urine protein assay by test strip, semi-quantitative 1+ NEGATIVE Urine glucose detection by automated test strip NEGATIVE NEGATIVE Erythrocytes detection in urine sediment by light microscopy 4+ NEGATIVE Urine ketones detection by automated test strip NEGATIVE NEGATIVE Urine nitrite detection by test strip NEGATIVE NEGATIVE Urine total bilirubin detection by test strip NEGATIVE NEGATIVE Urine urobilinogen measurement by automated test strip (mass/volume) 1 mg/dL NORMAL Urine leukocyte esterase detection by dipstick 2+ NEGATIVE Automated urine sediment erythrocyte count by microscopy (number/high power field) [HPF] NRG Automated urine sediment leukocyte count by microscopy (number/high power field ) [HPF] NRG Bacteria detection in urine sediment by light microscopy NEGATIVE NRG Squamous epithelial cells detection in urine sediment by light microscopy 5-10 NRG Crystals detection in urine sediment by light microscopy NONE NRG Casts detection in urine sediment by light microscopy NONE NRG Mucus detection in urine sediment by light microscopy NEGATIVE NRG Complete urinalysis with reflex to culture NO NRG Complete blood count (CBC) with automated white blood cell (WBC) differential - 09/01/17 12:37 Blood leukocytes automated count (number/volume) 10.7 10*3/uL 4.3-11.0 Blood erythrocytes automated count (number/volume) 3.96 10*6/uL 4.35-5.85 Venous blood hemoglobin measurement (mass/volume) 10.5 g/dL 11.5-16.0 Blood hematocrit (volume fraction) 34 % 35-52 Automated erythrocyte mean corpuscular volume 85 [foz_us] 80-99 Automated erythrocyte mean corpuscular hemoglobin (mass per erythrocyte) 27 pg 25-34 Automated erythrocyte mean corpuscular hemoglobin concentration measurement ( mass/volume) 31 g/dL 32-36 Automated erythrocyte distribution width ratio 13.5 % 10.0-14.5 Automated blood platelet count (count/volume) 290 10*3/uL 130-400 Automated blood platelet mean volume measurement 8.9 [foz_us] 7.4-10.4 Automated blood neutrophils/100 leukocytes 86 % 42-75 Automated blood lymphocytes/100 leukocytes 5 % 12-44 Blood monocytes/100 leukocytes 8 % 0-12 Automated blood eosinophils/100 leukocytes 1 % 0-10 Automated blood basophils/100 leukocytes 0 % 0-10 Blood neutrophils automated count (number/volume) 9.2 10*3 1.8-7.8 Blood lymphocytes automated count (number/volume) 0.5 10*3 1.0-4.0 Blood monocytes automated count (number/volume) 0.9 10*3 0.0-1.0 Automated eosinophil count 0.1 10*3/uL 0.0-0.3 Automated blood basophil count (count/volume) 0.0 10*3/uL 0.0-0.1 Comprehensive metabolic panel - 09/01/17 12:37 Serum or plasma sodium measurement (moles/volume) 139 mmol/L 135-145 Serum or plasma potassium measurement (moles/volume) 3.6 mmol/L 3.6-5.0 Serum or plasma chloride measurement (moles/volume) 109 mmol/L 98-107 Carbon dioxide 24 mmol/L 21-32 Serum or plasma anion gap determination (moles/volume) 6 mmol/L 5-14 Serum or plasma urea nitrogen measurement (mass/volume) 6 mg/dL 7-18 Serum or plasma creatinine measurement (mass/volume) 0.62 mg/dL 0.60-1.30 Serum or plasma urea nitrogen/creatinine mass ratio 10 NRG Serum or plasma creatinine measurement with calculation of estimated glomerular filtration rate > NRG Serum or plasma glucose measurement (mass/volume) 85 mg/dL 70-105 Serum or plasma calcium measurement (mass/volume) 8.9 mg/dL 8.5-10.1 Serum or plasma total bilirubin measurement (mass/volume) 0.2 mg/dL 0.1-1.0 Serum or plasma alkaline phosphatase measurement (enzymatic activity/volume) 96 U/L 40-136 Serum or plasma aspartate aminotransferase measurement (enzymatic activity/ volume) 16 U/L 5-34 Serum or plasma alanine aminotransferase measurement (enzymatic activity/volume ) 13 U/L 0-55 Serum or plasma protein measurement (mass/volume) 6.3 g/dL 6.4-8.2 Serum or plasma albumin measurement (mass/volume) 3.1 g/dL 3.2-4.5 Serum or plasma uric acid measurement (mass/volume) - 09/01/17 12:37 Serum or plasma uric acid measurement (mass/volume) 3.2 mg/dL 2.6-7.2 Lactate dehydrogenase 1 [enzymatic activity/volume] in serum or plasma - 12:37 Lactate dehydrogenase 1 [enzymatic activity/volume] in serum or plasma 312 U/L 125-220 Blood manual differential performed detection - 09/01/17 12:37 Blood monocytes/100 leukocytes 5 % NRG Manual blood segmented neutrophils/100 leukocytes 85 % NRG Blood band neutrophils/100 leukocytes 0 % NRG Manual blood lymphocytes/100 leukocytes 8 % NRG Manual eosinophils/100 leukocytes in nose 2 % NRG Manual blood basophils/100 leukocytes 0 % NRG Blood erythrocyte morphology finding identification NORMAL NRG Complete urinalysis with reflex to culture - 09/18/17 12:00 Urine color determination YELLOW NRG Urine clarity determination CLEAR NRG Urine pH measurement by test strip 6.5 5-9 Specific gravity of urine by test strip 1.015 1.016- 1.022 Urine protein assay by test strip, semi-quantitative NEGATIVE NEGATIVE Urine glucose detection by automated test strip NEGATIVE NEGATIVE Erythrocytes detection in urine sediment by light microscopy 4+ NEGATIVE Urine ketones detection by automated test strip 1+ NEGATIVE Urine nitrite detection by test strip NEGATIVE NEGATIVE Urine total bilirubin detection by test strip NEGATIVE NEGATIVE Urine urobilinogen measurement by automated test strip (mass/volume) NORMAL NORMAL Urine leukocyte esterase detection by dipstick 1+ NEGATIVE Automated urine sediment erythrocyte count by microscopy (number/high power field) [HPF] NRG Automated urine sediment leukocyte count by microscopy (number/high power field ) RARE NRG Bacteria detection in urine sediment by light microscopy TRACE NRG Squamous epithelial cells detection in urine sediment by light microscopy 5-10 NRG Crystals detection in urine sediment by light microscopy NONE NRG Casts detection in urine sediment by light microscopy NONE NRG Mucus detection in urine sediment by light microscopy SMALL NRG Complete urinalysis with reflex to culture NO NRG Bacterial urine culture - 09/18/17 12:00 Bacterial urine culture SEE COMMEN NRG COLONY COUNT . NRG FTX;REPORTABLE 50,000 CFU/ML NRG FREE TEXT ENTRY 2 NO SUSCEPTIBILITY PERFORMED NRG Urine drug screening test - 09/18/17 12:00 Urine phencyclidine detection by screening method NEGATIVE NEGATIVE Urine benzodiazepines detection by screening method NEGATIVE NEGATIVE Urine cocaine detection NEGATIVE NEGATIVE Urine amphetamines detection by screening method NEGATIVE NEGATIVE Urine methamphetamine detection by screening method NEGATIVE NEGATIVE Urine cannabinoids detection by screening method POSITIVE NEGATIVE Urine opiates detection by screening method NEGATIVE NEGATIVE Urine barbiturates detection NEGATIVE NEGATIVE Screening urine tricyclic antidepressants detection NEGATIVE NEGATIVE Urine methadone detection by screening method NEGATIVE NEGATIVE Urine oxycodone detection NEGATIVE NEGATIVE Urine propoxyphene detection NEGATIVE NEGATIVE Complete blood count (CBC) with automated white blood cell (WBC) differential - 09/18/17 12:35 Blood leukocytes automated count (number/volume) 10.3 10*3/uL 4.3-11.0 Blood erythrocytes automated count (number/volume) 3.55 10*6/uL 4.35-5.85 Venous blood hemoglobin measurement (mass/volume) 9.6 g/dL 11.5-16.0 Blood hematocrit (volume fraction) 30 % 35-52 Automated erythrocyte mean corpuscular volume 83 [foz_us] 80-99 Automated erythrocyte mean corpuscular hemoglobin (mass per erythrocyte) 27 pg 25-34 Automated erythrocyte mean corpuscular hemoglobin concentration measurement ( mass/volume) 32 g/dL 32-36 Automated erythrocyte distribution width ratio 13.2 % 10.0-14.5 Automated blood platelet count (count/volume) 314 10*3/uL 130-400 Automated blood platelet mean volume measurement 9.1 [foz_us] 7.4-10.4 Automated blood neutrophils/100 leukocytes 76 % 42-75 Automated blood lymphocytes/100 leukocytes 10 % 12-44 Blood monocytes/100 leukocytes 13 % 0-12 Automated blood eosinophils/100 leukocytes 0 % 0-10 Automated blood basophils/100 leukocytes 0 % 0-10 Blood neutrophils automated count (number/volume) 7.8 10*3 1.8-7.8 Blood lymphocytes automated count (number/volume) 1.1 10*3 1.0-4.0 Blood monocytes automated count (number/volume) 1.4 10*3 0.0-1.0 Automated eosinophil count 0.0 10*3/uL 0.0-0.3 Automated blood basophil count (count/volume) 0.0 10*3/uL 0.0-0.1 Comprehensive metabolic panel - 09/18/17 12:35 Serum or plasma sodium measurement (moles/volume) 135 mmol/L 135-145 Serum or plasma potassium measurement (moles/volume) 3.2 mmol/L 3.6-5.0 Serum or plasma chloride measurement (moles/volume) 106 mmol/L 98-107 Carbon dioxide 19 mmol/L 21-32 Serum or plasma anion gap determination (moles/volume) 10 mmol/L 5-14 Serum or plasma urea nitrogen measurement (mass/volume) 4 mg/dL 7-18 Serum or plasma creatinine measurement (mass/volume) 0.58 mg/dL 0.60-1.30 Serum or plasma urea nitrogen/creatinine mass ratio 7 NRG Serum or plasma creatinine measurement with calculation of estimated glomerular filtration rate > NRG Serum or plasma glucose measurement (mass/volume) 90 mg/dL 70-105 Serum or plasma calcium measurement (mass/volume) 8.4 mg/dL 8.5-10.1 Serum or plasma total bilirubin measurement (mass/volume) 0.5 mg/dL 0.1-1.0 Serum or plasma alkaline phosphatase measurement (enzymatic activity/volume) 89 U/L 40-136 Serum or plasma aspartate aminotransferase measurement (enzymatic activity/ volume) 12 U/L 5-34 Serum or plasma alanine aminotransferase measurement (enzymatic activity/volume ) 12 U/L 0-55 Serum or plasma protein measurement (mass/volume) 5.7 g/dL 6.4-8.2 Serum or plasma albumin measurement (mass/volume) 2.9 g/dL 3.2-4.5 CULTURE, GROUP B STREP (VAGINAL) - 10/01/17 13:23 STREPTOCOCCUS, GROUP B CULTURE SEE NOTE NRG Complete urinalysis with reflex to culture - 10/16/17 07:40 Urine color determination YELLOW NRG Urine clarity determination CLEAR NRG Urine pH measurement by test strip 6 5-9 Specific gravity of urine by test strip 1.020 1.016- 1.022 Urine protein assay by test strip, semi-quantitative 1+ NEGATIVE Urine glucose detection by automated test strip NEGATIVE NEGATIVE Erythrocytes detection in urine sediment by light microscopy 4+ NEGATIVE Urine ketones detection by automated test strip NEGATIVE NEGATIVE Urine nitrite detection by test strip NEGATIVE NEGATIVE Urine total bilirubin detection by test strip NEGATIVE NEGATIVE Urine urobilinogen measurement by automated test strip (mass/volume) NORMAL NORMAL Urine leukocyte esterase detection by dipstick 2+ NEGATIVE Automated urine sediment erythrocyte count by microscopy (number/high power field) [HPF] NRG Automated urine sediment leukocyte count by microscopy (number/high power field ) [HPF] NRG Bacteria detection in urine sediment by light microscopy NEGATIVE NRG Squamous epithelial cells detection in urine sediment by light microscopy 5-10 NRG Crystals detection in urine sediment by light microscopy NONE NRG Casts detection in urine sediment by light microscopy NONE NRG Mucus detection in urine sediment by light microscopy NEGATIVE NRG Complete urinalysis with reflex to culture NO NRG Complete blood count (CBC) with automated white blood cell (WBC) differential - 10/16/17 08:10 Blood leukocytes automated count (number/volume) 8.9 10*3/uL 4.3-11.0 Blood erythrocytes automated count (number/volume) 3.65 10*6/uL 4.35-5.85 Venous blood hemoglobin measurement (mass/volume) 9.8 g/dL 11.5-16.0 Blood hematocrit (volume fraction) 31 % 35-52 Automated erythrocyte mean corpuscular volume 84 [foz_us] 80-99 Automated erythrocyte mean corpuscular hemoglobin (mass per erythrocyte) 27 pg 25-34 Automated erythrocyte mean corpuscular hemoglobin concentration measurement ( mass/volume) 32 g/dL 32-36 Automated erythrocyte distribution width ratio 14.2 % 10.0-14.5 Automated blood platelet count (count/volume) 278 10*3/uL 130-400 Automated blood platelet mean volume measurement 9.2 [foz_us] 7.4-10.4 Automated blood neutrophils/100 leukocytes 70 % 42-75 Automated blood lymphocytes/100 leukocytes 19 % 12-44 Blood monocytes/100 leukocytes 9 % 0-12 Automated blood eosinophils/100 leukocytes 3 % 0-10 Automated blood basophils/100 leukocytes 0 % 0-10 Blood neutrophils automated count (number/volume) 6.2 10*3 1.8-7.8 Blood lymphocytes automated count (number/volume) 1.7 10*3 1.0-4.0 Blood monocytes automated count (number/volume) 0.8 10*3 0.0-1.0 Automated eosinophil count 0.2 10*3/uL 0.0-0.3 Automated blood basophil count (count/volume) 0.0 10*3/uL 0.0-0.1 Blood type T Indirect antibody screen panel - 10/16/17 08:10 ABO+Rh group BP NRG Transfusion band number [id number] NRG Blood group antibody screen NEGATIVE NRG Complete blood count (CBC) with automated white blood cell (WBC) differential - 10/17/17 05:41 Blood leukocytes automated count (number/volume) 9.0 10*3/uL 4.3-11.0 Blood erythrocytes automated count (number/volume) 3.83 10*6/uL 4.35-5.85 Venous blood hemoglobin measurement (mass/volume) 10.1 g/dL 11.5-16.0 Blood hematocrit (volume fraction) 32 % 35-52 Automated erythrocyte mean corpuscular volume 84 [foz_us] 80-99 Automated erythrocyte mean corpuscular hemoglobin (mass per erythrocyte) 26 pg 25-34 Automated erythrocyte mean corpuscular hemoglobin concentration measurement ( mass/volume) 32 g/dL 32-36 Automated erythrocyte distribution width ratio 14.3 % 10.0-14.5 Automated blood platelet count (count/volume) 284 10*3/uL 130-400 Automated blood platelet mean volume measurement 9.1 [foz_us] 7.4-10.4 Automated blood neutrophils/100 leukocytes 64 % 42-75 Automated blood lymphocytes/100 leukocytes 23 % 12-44 Blood monocytes/100 leukocytes 10 % 0-12 Automated blood eosinophils/100 leukocytes 2 % 0-10 Automated blood basophils/100 leukocytes 0 % 0-10 Blood neutrophils automated count (number/volume) 5.8 10*3 1.8-7.8 Blood lymphocytes automated count (number/volume) 2.1 10*3 1.0-4.0 Blood monocytes automated count (number/volume) 0.9 10*3 0.0-1.0 Automated eosinophil count 0.2 10*3/uL 0.0-0.3 Automated blood basophil count (count/volume) 0.0 10*3/uL 0.0-0.1 CULTURE, GENITAL - 10/24/18 15:34 CULTURE, GENITAL SEE NOTE NRG Encounters ACCT No. Visit Date/Time Discharge Status Pt. Type Provider Facility Loc./Unit Complaint [id number] 09/18/2017 11:08:00 09/18/2017 17:00:00 DIS Outpatient BETTINA ZAVALA DO [facility] WSo DECREASED MOVEMENT/LOWER BACK PAIN/MUCUS DIS [id number] 09/01/2017 11:38:00 09/01/2017 17:45:00 DIS Outpatient TOÑO BONILLA DO [facility] WSo VOMITING/HEADACHE [id number] 08/28/2017 08:57:00 08/28/2017 23:59:59 CLS Preadmit BRINA CM MD [facility] RAD 30 WEEKS GESTATION OF [id number] 10/20/2012 20:25:00 10/20/2012 21:35:00 DIS Emergency NELIA SAAB, SHEILA Barraza [facility] ER SOB [id number] 10/17/2017 09:00:00 Document Registration [id number] 10/01/2017 13:20:00 10/01/2017 23:59:59 CLS Outpatient BRINA CM [facility] [id number] 01/08/2018 14:40:00 Document Registration [id number] 10/01/2017 13:20:00 Document Registration [id number] 07/31/2017 09:00:00 Document Registration
--- OUTSIDE RECORDS SUMMARY | 2018-01-26 16:24 | XMS REPORT ---
Author Author BRINA CM Organization [facility] Address [address] [place] [address] Care Team Providers Care Program Arranger Name Role Phone BRINA CM Unavailable PROBLEMS Type Condition ICD9-CM Code [id number] Code Onset Dates Condition Status SNOMED Code Problem Obesity affecting in third trimester O99.213 Active [id number] Problem Moderate persistent asthma with exacerbation J45.41 Active [id number] ALLERGIES No Information ENCOUNTERS Encounter Location Date Diagnosis [facility] [id number] [place] [address] [phone] Nov, [facility] [id number] [place] [address] [phone]- [phone] Sep, [facility] [id number] [place] [address] [phone]- [phone] Sep, [facility] [id number] [place] [address] 48389- 7419 Sep, 36 weeks gestation of Z3A.36 [address] [id number] [place] [address] 75454- 5567 Sep, BMI 45.0-49.9, adult Z68.42 ; Third trimester Z34.93 ; 35 weeks gestation of Z3A.35 ; Obesity affecting in third trimester O99.213 and Vaginal discharge N89.8 [place] [id number] [place] [address] 93873- 1005 Sep, [place] [id number] [place] [address] 42721- 6291 Sep, [place] [id number] [place] [address] 21265- 6717 Sep, Third trimester Z34.93 ; 34 weeks gestation of Z3A.34 ; Current with history of pre-term labor in third trimester O09.213 and Obesity affecting in third trimester O99.213 [place] [id number] [place] [address] 47771- 6188 Sep, [facility] [id number] [place] [address] 31950- 3416 Sep, [facility] [id number] [place] [address] [phone] -[phone] Aug, Acute maxillary sinusitis, recurrence not specified J01.00 ; Moderate persistent asthma with exacerbation J45.41 and Chest congestion R09.[address] [address]- [address] Aug, Third trimester Z34.93 ; 32 weeks gestation of Z3A.32 ; Obesity affecting in third trimester O99.213 and BMI 45.0-49.9, adult Z68.42 [id number] [place] [address] 35913- 6694 Aug, [id number] [place] [address] 40941- 9102 Aug, 30 weeks gestation of Z3A.30 ; Third trimester Z34.93 ; Nausea/vomiting in O21.9 ; Marijuana use F12.90 ; Obesity affecting in third trimester O99.213 and Encounter for immunization Z23 [id number] [place] [address] 71449- 7713 Aug, [place] [id number] [place] [address] 08298- 8723 July, [address] [address] July, Decreased movements in second trimester, single or unspecified fetus O36.8120 [address] [address]- [address] July, Decreased movements in second trimester, single or unspecified fetus O36.8120 [address] [address] July, [place] [id number], [place] [address] July, Multigravida in second trimester Z34.82 ; 26 weeks gestation of Z3A.26 ; Moderate persistent asthma with exacerbation J45.41 and Obesity affecting in second trimester O99.212 [id number], [place] [address] Jun, [place] [id number] [place] [address] 61385- 6925 Jun, [address] [id number] [address] Jun, Multigravida in second trimester Z34.82 ; Normal in multigravida Z34.80 ; 22 weeks gestation of Z3A.22 ; Obesity affecting in second trimester O99.212 ; Herpesviral infection, unspecified B00.9 and Other viral diseases complicating , second trimester O98.512 IMMUNIZATIONS No Known Immunizations SOCIAL HISTORY Never Assessed REASON FOR VISIT OB phone call PLAN OF CARE VITAL SIGNS MEDICATIONS Unknown [...]
[2018-01-26] MEDS ORDERED: RX-POLY/TRIMETH (POLYTRIM) OP 10 ML BTL OP STA (17:46)
--- NOTE | 2018-01-26 17:46 | ED EENT ---
History of Present Illness General Chief Complaint: Eye Problems Stated Complaint: SPIDER IN R EYE Nursing Triage Note: pt presents to ed with complaints of r eye pain after a spider fell into her Rt eye Source: patient History of Present Illness Date Seen by Provider: Jan 26, 2018 Time Seen by Provider: 17:30 Initial Comments 32-year-old -Moroc[place] female presents for right irritation. Timing/Duration: yesterday Location: eye (R) Prearrival Treatment: no prearrival treatment Associated Symptoms: denies symptoms Allergies and Home Medications Allergies Coded Allergies: No Known Drug Allergies (Unverified , 10/20/12) Home Medications Acyclovir 400 Mg Tablet, 400 MG PO BID, (Reported) Albuterol 8.5 Gm Hfa.aer.ad, 8.5 GM IH Q2, (Reported) 2 PUFFS Beclomethasone Dipropionate 8.7 Gm Aer.w.adap, 8.7 GM IH BID Prescribed by: BETTINA ZAVALA on 09/18/17 1540 Ferrous Sulfate 325 Mg Tablet, 325 MG PO DAILY Prescribed by: BRINA CM on 10/18/17 0948 Ibuprofen 600 Mg Tablet, 600 MG PO Q6H Prescribed by: BRINA CM on 10/18/17 0948 Ipratropium/Albuterol Sulfate 3 Ml Ampul.neb, 3 ML IH Q6H PRN for SHORTNESS OF BREATH Prescribed by: BETTINA ZAVALA on 09/18/17 1540 Metronidazole 500 Mg Tablet, 500 MG PO BID, (Reported) Patient Home Medication List Home Medication List Reviewed: Yes Review of Systems Review of Systems Constitutional: no symptoms reported, see HPI Eyes: See HPI, Foreign Body Sensation, Inflammation; Denies Pain, Denies Photophobia, Denies Vision Changes All Other Systems Reviewed Negative Unless Noted: Yes Past Rnwhqwu-Raijvn-Xkvctn Hx Past Med/Social Hx: Reviewed Nursing Past Med/Soc Hx Patient Social History Alcohol Use: Denies Use Recreational Drug Use: No Smoking Status: Current Everyday Smoker Type Used: Cigarettes 2nd Hand Smoke Exposure: Yes Recent Foreign Travel: No Contact w/Someone Who Travel: No Recent Infectious Disease Expo: No Recent Hopitalizations: Yes Physical Abuse: No Sexual Abuse: No Mistreated: No Fear: No Immunizations Up To Date Tetanus Booster (TDap): Less than 5yrs PED Vaccines UTD: Yes Seasonal Allergies Seasonal Allergies: Yes Past Medical History Surgeries: Yes (wisdom teeth,surgery on intestines as an infant) Respiratory: Yes Asthma, COPD Currently Using CPAP: No Currently Using BIPAP: No Cardiac: No Neurological: No 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 Disorders: No Female 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 Disorders: Ovarian Cyst Sexually Transmitted Disease: Yes HIV/AIDS: No Genitourinary: Yes UTI-Chronic Gastrointestinal: Yes Gastroesophageal Reflux, Hemorrhoids Musculoskeletal: No Endocrine: No HEENT: No Loss of Vision: Denies Hearing Impairment: Denies Cancer: No Psychosocial: Yes Depression Integumentary: Yes Herpes Blood Disorders: Yes (anemia) Adverse Reaction/Blood Tranf: No Family Medical History Asthma 19 FATHER G8 BROTHER Completed stroke MATERNAL GRANDFATHER Diabetes mellitus 19 FATHER 19 MOTHER Drug abuse 19 FATHER G8 BROTHER G8 BROTHER G8 BROTHER FH: breast cancer MATERNAL GRANDMOTHE ( AGE 71) Headache disorder G8 SISTER Hypertension 19 MOTHER G8 BROTHER Psychosocial problem G8 BROTHER Seizure disorder MATERNAL GRANDMOTHE Visual Acuity : Eye Location: Right Physical Exam Vital Signs Vital Signs - First Documented 01/26/18 16:54 Temp 96.7 Pulse 70 Resp 18 B/P (MAP) 144/98 (113) Pulse Ox 99 Height, Weight, BMI Height: 5'11.00" Weight: 344lbs. 0.8oz. 156.864950rp; 47.9 BMI Method:Stated General Appearance: WD/WN, no apparent distress Eyes: right eye PERRL, right eye EOMI, right eye conjunctival inflammation, right eye lid inflammation Ears: bilateral ear auricle normal, bilateral ear canal normal, bilateral ear TM normal Cardiovascular: normal peripheral pulses, regular rate, rhythm Respiratory: chest non-tender, lungs clear, normal breath sounds Gastrointestinal: normal bowel sounds, non tender, soft Neurologic/Psychiatric: no motor/sensory deficits, alert, normal mood/affect, oriented x 3 Skin: normal color, warm/dry Progress/Results/Core Measures Results/Orders My Orders Orders - SHANNAN DON Rx-Poly/Trimeth Ophth (Rx-Polytrim Ophth (01/26/18 17:46) Vital Signs/I&O 01/26/18 01/26/18 16:54 17:59 Temp 96.7 96.7 Pulse 70 70 Resp 18 18 B/P (MAP) 144/98 (113) 144/98 (113) Pulse Ox 99 99 Blood Pressure Mean: 113 Departure Impression Primary Impression: Corneal abrasion Qualified Codes: S05.01XA - Injury of conjunctiva and corneal abrasion without foreign body, right eye, initial encounter Disposition: HOME, SELF-CARE Condition: Improved Departure-Patient Inst. Decision time for Depature: 17:45 Referrals: BRINA CM MD (PCP/Family) Primary Care Physician Patient Instructions: Corneal Abrasion (DC) Add. Discharge Instructions: Clean eye with warm wash cloth from center outward, may use baby shampoo to remove debris or matter. Use drops as prescribed for 5 days. Follow-up with your primary care provider in 2-3 days if symptoms are not improving or worsen. Return to emergency department for visual changes, fever greater than 101, new problems or concerns. All discharge instructions reviewed with patient and/or family. Voiced understanding. SHANNAN DON Jan 26, 2018 17:46
[2018-01-26 17:59] VITALS: BP 144/98
== END 2018-01-26 17:59 | disposition home or self-care (01) ==
LOC: ER 16:18 → EDUNIT# 16:18 → ER 17:59
DX: S05.01XA Injury of conjunctiva and corneal abrasion without foreign body, right eye, initial encounter (principal); J44.9 Chronic obstructive pulmonary disease, unspecified; K21.9 Gastro-esophageal reflux disease without esophagitis; F32.9 Major depressive disorder, single episode, unspecified; D64.9 Anemia, unspecified; F17.210 Nicotine dependence, cigarettes, uncomplicated; Z87.448 Personal history of other diseases of urinary system; Z86.19 Personal history of other infectious and parasitic diseases; Z80.3 Family history of malignant neoplasm of breast; Z79.51 Long term (current) use of inhaled steroids; Z79.52 Long term (current) use of systemic steroids; Z87.19 Personal history of other diseases of the digestive system; X58.XXXA Exposure to other specified factors, initial encounter
CPT/HCPCS: 99283

== ENCOUNTER 2018-04-27 19:40 | Emergency (ER) | payer MEDICAID ==
[~2018-04-27] VITALS: Ht 180.3 cm; Wt 149.7 kg
--- OUTSIDE RECORDS SUMMARY | 2018-04-27 19:47 | XMS REPORT | Continuity of Care Document ---
Author Author [facility] Organization [facility] Address Unknown Phone Unavailable Allergies Active Description Code Type Severity Reaction Onset Reported/Identified Relationship to Patient Clinical Status Yes No Known Drug Allergies [id number] Drug Allergy Unknown N/A 10/20/2012 Medications There is no data. Problems Date Dx Coded Attending Type Code Diagnosis Diagnosed By 10/20/2012 NELIA SAAB, SHEILA Barraza Ot 305.1 TOBACCO USE DISORDER 10/20/2012 NELIA SAAB, SHEILA Barraza Ot 493.92 ASTHMA, UNSPECIFIED, W (ACUTE) EXACERBAT 10/20/2012 NELIA SAAB, SHEILA Barraza Ot 786.05 SHORTNESS OF [...] O60.03 LABOR WITHOUT DELIVERY, THIRD TR 09/19/2017 JERRYANCABETTINA Goldstein DO Ot O99.213 OBESITY COMPLICATING , [...] Z68.42 BODY MASS INDEX (BMI) 45.0-49.9, ADULT 01/26/2018 SHANNAN DON Ot D64.9 ANEMIA, UNSPECIFIED 01/26/2018 SHANNAN DON Ot F17.210 NICOTINE DEPENDENCE, CIGARETTES, UNCOMPL 01/26/2018 SHANNAN DON Ot F32.9 MAJOR DEPRESSIVE DISORDER, SINGLE EPISOD 01/26/2018 SHANNAN DON Ot H57.11 OCULAR PAIN, RIGHT EYE 01/26/2018 SHANNAN DON Ot J44.9 CHRONIC OBSTRUCTIVE PULMONARY DISEASE, U 01/26/2018 SHANNAN DON Ot K21.9 GASTRO-ESOPHAGEAL REFLUX DISEASE WITHOUT 01/26/2018 ARIAN, SHANNAN METAL SASH SETTER Ot S05.01XA INJ CONJUNCTIVA AND CORNEAL ABRASION W/O 01/26/2018 ARIAN, SHANNAN METAL SASH SETTER Ot X58.XXXA EXPOSURE TO OTHER SPECIFIED FACTORS, INI 01/26/2018 ARIANSHANNAN Goldstein METAL SASH SETTER Ot Z79.51 NURSING HOME (CURRENT) USE OF INHALED STERO 01/26/2018 ARIAN SHANNAN METAL SASH SETTER Ot Z79.52 RECORDS ANALYSIS MANAGER (CURRENT) USE OF SYSTEMIC STER 01/26/2018 ARIAN, SHANNAN METAL SASH SETTER Ot Z80.3 FAMILY HISTORY OF MALIGNANT NEOPLASM OF 01/26/2018 ARIAN, SHANNAN METAL SASH SETTER Ot Z86.19 PERSONAL HISTORY OF OTHER INFECTIOUS AND 01/26/2018 ARIAN, SHANNAN METAL SASH SETTER Ot Z87.19 PERSONAL HISTORY OF OTHER DISEASES OF 01/26/2018 ARIAN SHANNAN METAL SASH SETTER Ot Z87.448 PERSONAL HISTORY OF OTHER DISEASES OF UR 01/28/2018 SHANNAN DON METAL SASH SETTER Ot D64.9 ANEMIA, UNSPECIFIED 01/28/2018 ARIAN SHANNAN METAL SASH SETTER Ot F17.210 NICOTINE DEPENDENCE, CIGARETTES, UNCOMPL 01/28/2018 ARIAN SHANNAN METAL SASH SETTER Ot F32.9 MAJOR DEPRESSIVE DISORDER, SINGLE EPISOD 01/28/2018 ARIAN, SHANNAN METAL SASH SETTER Ot H57.11 OCULAR PAIN, RIGHT EYE 01/28/2018 ARIAN SHANNAN METAL SASH SETTER Ot J44.9 CHRONIC OBSTRUCTIVE PULMONARY DISEASE, U 01/28/2018 ARIAN SHANNAN METAL SASH SETTER Ot K21.9 GASTRO-ESOPHAGEAL REFLUX DISEASE WITHOUT 01/28/2018 ARIANSHANNAN GoldsteinP Ot S05.01XA INJ CONJUNCTIVA AND CORNEAL ABRASION W/O 01/28/2018 ARIAN, SHANNAN METAL SASH SETTER Ot X58.XXXA EXPOSURE TO OTHER SPECIFIED FACTORS, INI 01/28/2018 ARIAN SHANNAN METAL SASH SETTER Ot Z79.51 RECORDS ANALYSIS MANAGER (CURRENT) USE OF INHALED STERO 01/28/2018 ARIAN SHANNAN METAL SASH SETTER Ot Z79.52 NURSING HOME (CURRENT) USE OF SYSTEMIC STER 01/28/2018 ARIAN, SHANNAN METAL SASH SETTER Ot Z80.3 FAMILY HISTORY OF MALIGNANT NEOPLASM OF 01/28/2018 ARIAN, SHANNAN METAL SASH SETTER Ot Z86.19 PERSONAL HISTORY OF OTHER INFECTIOUS AND 01/28/2018 ARIAN SHANNAN METAL SASH SETTER Ot Z87.19 PERSONAL HISTORY OF OTHER DISEASES OF 01/28/2018 SHANNAN DON Ot Z87.448 PERSONAL HISTORY OF OTHER DISEASES OF UR Procedures Code Description Performed By Performed On [id number] DELIVERY OF PRODUCTS OF CONCEPTION, EXTE 10/16/2017 [id number] INTRODUCTION OF OTH HORMONE INTO PERIPH 10/16/2017 [...] 9.4 fL 7.5-12.5 ABSOLUTE NEUTROPHILS 6548 cells/uL 8503-6221 ABSOLUTE LYMPHOCYTES 2095 cells/uL 850-3900 ABSOLUTE MONOCYTES [...] ABO+Rh group BP NRG Transfusion band number [id number] NR Blood group antibody screen NEGATIVE [facility] Complete blood count (CBC) with automated white [...] (count/volume) 0.0 10*3/uL 0.0-0.1 CULTURE, GENITAL - 01/08/18 15:34 CULTURE, GENITAL SEE NOTE NRG Encounters ACCT No. Visit Date/Time Discharge Status Pt. Type Provider Facility Loc./Unit Complaint [id number] 01/26/2018 16:18:00 01/26/2018 17:59:00 DIS Emergency SHANNAN DON [facility] ER SPIDER IN R EYE [id number] 09/18/2017 11:08:00 09/18/2017 17:00:00 DIS Outpatient BETTINA ZAVALA DO [facility] WSo DECREASED MOVEMENT/LOWER BACK PAIN/MUCUS DIS [id number] 09/01/2017 11:38:00 09/01/2017 17:45:00 DIS Outpatient TOÑO BONILLA DO [facility] WSo VOMITING/HEADACHE [id number] 08/28/2017 08:57:00 08/28/2017 23:59:59 CLS Tulio CM MD, BRINA Rios [facility] RAD 30 WEEKS GESTATION OF [id number] 10/20/2012 20:25:00 10/20/2012 21:35:00 DIS Emergency NELIA SAAB, SHEILA Barraza [facility] ER SOB [id number] 04/27/2018 19:41:00 ACT Emergency BRETT HASSAN DO [facility] ER ABD CRAMPING AND BLEEDING [id number] 10/17/2017 09:00:00 Document Registration [id number] 04/17/2018 16:00:00 04/17/2018 23:59:59 [facility] Outpatient BRINA CM [facility] [id number] 01/08/2018 14:40:00 Document Registration [id number] 10/01/2017 13:20:00 Document Registration [id number] 07/31/2017 09:00:00 Document Registration
[2018-04-27 20:45] LABS: BILIRUBIN,URINE NEGATIVE (NEGATIVE); CLARITY,URINE CLEAR; COLOR,URINE YELLOW; GLUCOSE, URINE (UA) NEGATIVE (NEGATIVE); KETONES,URINE NEGATIVE (NEGATIVE); LEUKOCYTE ESTERASE ,URINE NEGATIVE (NEGATIVE); NITRITE,URINE NEGATIVE (NEGATIVE); PH,URINE 6 (5-9); PROTEIN,URINE NEGATIVE (NEGATIVE); UROBILINOGEN,URINE 1 MG/DL (NORMAL)
[2018-04-27 21:31] LABS: BASOPHILS % (AUTO) 0 % (0-10); EOSINOPHILS # (AUTO) 0.2 10^3/uL (0.0-0.3); EOSINOPHILS % (AUTO) 2 % (0-10); HEMATOCRIT 39 % (35-52); HEMOGLOBIN 12.1 G/DL (11.5-16.0); LYMPHOCYTES # (AUTO) 3.2 X 10^3 (1.0-4.0); LYMPHOCYTES % (AUTO) 27 % (12-44); MEAN CORPUSCULAR HEMOGLOBIN 26 PG (25-34); MEAN CORPUSCULAR HGB CONC 31 G/DL (32-36); MEAN CORPUSCULAR VOLUME 85 FL (80-99); MEAN PLATELET VOLUME 8.8 FL (7.4-10.4); MONOCYTES # (AUTO) 0.8 X 10^3 (0.0-1.0); MONOCYTES % (AUTO) 6 % (0-12); NEUTROPHILS # (AUTO) 7.8 X 10^3 (1.8-7.8); NEUTROPHILS % (AUTO) 65 % (42-75); PLATELET COUNT 314 10^3/uL (130-400)
[2018-04-27 21:41] LABS: PROTHROMBIN TIME PATIENT 13.1 SEC (12.2-14.7)
[2018-04-27 21:49] LABS: BUN/CREATININE RATIO 14; CALCIUM 8.8 MG/DL (8.5-10.1); CARBON DIOXIDE 21 MMOL/L (21-32); CHLORIDE 105 MMOL/L (98-107); CREATININE SERUM 0.79 MG/DL (0.60-1.30); GFR ESTIMATED > 60; GLUCOSE 103 MG/DL (70-105); POTASSIUM 3.7 MMOL/L (3.6-5.0); SODIUM 139 MMOL/L (135-145)
[2018-04-27] MEDS ORDERED: PNV1TABL81 PO (21:51)
--- NOTE | 2018-04-27 21:51 | ED GU-Female ---
General Chief Complaint: Abdominal/GI Problems Stated Complaint: ABD CRAMPING AND BLEEDING Nursing Triage Note: AMBULATORY TO ED STATING SHE TOOK A TEST 2 DAYS AGO AND THE RESULTS WERE POSITIVE. TODAY SHE IS HAVING LOWER BACK PAIN, AND PRESSURE AND PAIN "AT THE BOTTOM OF STOMACH". SHE ALSO NOTICED BLOOD IN TOILET AFTER VOIDING AND WIPING. Nursing Sepsis Screen: No Definite Risk Source: patient History of Present Illness Date Seen by Provider: Apr 27, 2018 Time Seen by Provider: 20:00 Initial Comments PT ARRIVES VIA POV FROM HOME PT STATES "II BEEN HURTIN' REAL BAD" IN LOWER ABDOMEN AND IN LOWER BACK TODAY -- STATES PAIN IS BETTER NOW STATES SHE HAS NOT TAKEN ANYTHING FOR PAIN STATES SHE STARTED HER PERIOD TONIGHT. LATER STATES IT WAS JUST A LITTLE BIT OF BLOOD ON TISSUE WHEN SHE WIPED. LMP 03/15/18. NO CONTROL. PT DELIVERED 10/16/17. NOT BREAST FEEDING. NO NAUSEA/VOMITING C/O URINARY FREQUENCY AND URGENCY, AND HAS TO PUSH/ STRAIN TO EMPTY BLADDER PT REPORTED TO ME THAT SHE HAD NOT TAKEN A HOME TEST, OR MENTION THAT SHE "MIGHT' BE --TOLD NURSE THAT SHE DID TAKE 2 HOME TESTS AND BOTH WERE POSITIVE. PCP: GERALD-DR. TOI MESSINA MATERIAL CONTROL ANALYST: DR. CM Allergies and Home Medications Allergies Coded Allergies: No Known Drug Allergies (Unverified , 10/20/12) Home Medications Acyclovir 400 Mg Tablet, 400 MG PO BID, (Reported) Albuterol 8.5 Gm Hfa.aer.ad, 8.5 GM IH Q2, (Reported) 2 PUFFS Beclomethasone Dipropionate 8.7 Gm Aer.w.adap, 8.7 GM IH BID Prescribed by: BETTINA ZAVALA on 09/18/17 1540 Ferrous Sulfate 325 Mg Tablet, 325 MG PO DAILY Prescribed by: BRINA CM on 10/18/17 0948 Ibuprofen 600 Mg Tablet, 600 MG PO Q6H Prescribed by: BRINA CM on 10/18/17 0948 Ipratropium/Albuterol Sulfate 3 Ml Ampul.neb, 3 ML IH Q6H PRN for SHORTNESS OF BREATH Prescribed by: BETTINA ZAVALA on 09/18/17 1540 Metronidazole 500 Mg Tablet, 500 MG PO BID, (Reported) Pnv No.122/Iron/Folic Acid 1 Each Tablet, 1 EACH PO DAILY Prescribed by: BRETT HASSAN on 04/27/18 463 Patient Home Medication List Home Medication List Reviewed: Yes Review of Systems Review of Systems Constitutional: no symptoms reported Respiratory: no symptoms reported Gastrointestinal: see HPI, abdominal pain; No diarrhea, No nausea, No vomiting Genitourinary: see HPI, frequency, flank pain, urgency LMP: Mar 15, 2018 Musculoskeletal: see HPI, back pain Skin: no symptoms reported Psychiatric/Neurological: No Symptoms Reported Endocrine: No Symptoms Reported Hematologic/Lymphatic: No Symptoms Reported Past Zkwujka-Potfiv-Whddtc Hx Patient Social History Alcohol Use: Occasionally Uses Recreational Drug Use: Yes (THC) Drug of Choice: MARIJUANA Smoking Status: Current Everyday Smoker (1 PPD) Type Used: Cigarettes 2nd Hand Smoke Exposure: Yes Recent Foreign Travel: No Contact w/Someone Who Travel: No Recent Infectious Disease Expo: No Recent Hopitalizations: No Immunizations Up To Date Tetanus Booster (TDap): Less than 5yrs PED Vaccines UTD: Yes Seasonal Allergies Seasonal Allergies: Yes Past Medical History Surgeries: Yes (wisdom teeth,surgery on intestines as an ) Abdominal Respiratory: Yes Asthma, COPD Currently Using CPAP: No Currently Using BIPAP: No Cardiac: No Neurological: No Last Menstrual Period: Mar 15, 2018 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 Disorders: No 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, Ovarian Cyst Sexually Transmitted Disease: Yes (HERPES) HIV/AIDS: No Genitourinary: Yes UTI-Chronic Gastrointestinal: Yes Gastroesophageal Reflux, Hemorrhoids Musculoskeletal: No Endocrine: Yes (MORBID OBESITY) HEENT: No Loss of Vision: Denies Hearing Impairment: Denies Cancer: No Psychosocial: Yes Depression Integumentary: Yes Herpes Blood Disorders: Yes (anemia) Adverse Reaction/Blood Tranf: No Family Medical History Asthma 19 FATHER G8 BROTHER Completed stroke MATERNAL GRANDFATHER Diabetes mellitus 19 FATHER 19 MOTHER Drug abuse 19 FATHER G8 BROTHER G8 BROTHER G8 BROTHER FH: breast cancer MATERNAL GRANDMOTHE ( AGE 71) Headache disorder G8 SISTER Hypertension 19 MOTHER G8 BROTHER Psychosocial problem G8 BROTHER Seizure disorder MATERNAL GRANDMOTHE Physical Exam Vital Signs Vital Signs - First Documented 04/27/18 04/27/18 19:56 22:08 Temp 98.4 Pulse 81 Resp 17 B/P (MAP) 146/90 (108) Pulse Ox 100 O2 Delivery Room Air Capillary Refill : Less Than 3 Seconds Height, Weight, BMI Height: 5'11.00" Weight: 330lbs. 0.8oz. 149.254722jx; 47.9 BMI Method:Stated General Appearance: no apparent distress, obese, other (PT SITTING WITH BOTH LEGS STRADDLING THE SIDES OF THE ER CART. DOES NOT APPEAR TO BE IN ANY DISCOMFORT OR DISTRESS. WALKS UPRIGHT AND MOVES WITHOUT DIFFICULTY. IS IN CARSEAT/CARRIER FOR NEARLY ENTIRE ER STAY--PT MAKES NO CONTACT WITH CHILD AT ANY TIME. FEMALE WITH PT BRIEFLY HELD CHILD JUST PRIOR TO DISMISSAL. ) Cardiovascular: regular rate, rhythm, no edema, no murmur Respiratory: normal breath sounds Gastrointestinal: normal bowel sounds, non tender, soft Pelvic: normal external exam, other (VERY SCANT AMOUNT OF OLD BLOOD IN CANAL. NO ACTIVE BLEEDING . 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, no motor/sensory deficits, alert, normal mood/affect, oriented x 3 Skin: normal color (PT IS BLACK), warm/dry Progress/Results/Core Measures Suspected Sepsis Recent Fever Within 48 Hours: No Infection Criteria Present: None New/Unexplained Altered Menta: No Sepsis Screen: No Definite Risk SIRS Temperature:98.4 Pulse: 81 Respiratory Rate: 17 Laboratory Tests 04/27/18 21:20: White Blood Count 12.0H Blood Pressure 146 /90 Mean: 108 Laboratory Tests 04/27/18 21:20: Creatinine 0.79, INR Comment 1.0, Platelet Count 314 Results/Orders Lab Results Laboratory Tests Test 04/27/18 20:39 04/27/18 21:20 Range/Units Urine Color YELLOW Urine Clarity CLEAR Urine pH 6 5-9 Urine Specific [place] 1.020 1.016-1.022 Urine Protein NEGATIVE NEGATIVE Urine Glucose (UA) NEGATIVE NEGATIVE Urine Ketones NEGATIVE NEGATIVE Urine Nitrite NEGATIVE NEGATIVE Urine Bilirubin NEGATIVE NEGATIVE Urine Urobilinogen 1 NORMAL MG/DL Urine Leukocyte Esterase NEGATIVE NEGATIVE Urine RBC (Auto) 2+ H NEGATIVE Urine RBC 2-5 H /HPF Urine WBC NONE /HPF Urine Squamous Epithelial Cells 5-10 /HPF Urine Crystals NONE /LPF Urine Bacteria NONE /HPF Urine Casts NONE /LPF Urine Mucus NEGATIVE /LPF Urine Culture Indicated NO White Blood Count 12.0 H 4.3-11.0 10^3/uL Red Blood Count 4.63 4.35-5.85 10^6/uL Hemoglobin 12.1 11.5-16.0 G/DL Hematocrit 39 35-52 % Mean Corpuscular Volume 85 80-99 FL Mean Corpuscular Hemoglobin 26 25-34 PG Mean Corpuscular Hemoglobin Concent 31 L 32-36 G/DL Red Cell Distribution Width 14.0 10.0-14.5 % Platelet Count 314 130-400 10^3/uL Mean Platelet Volume 8.8 7.4-10.4 FL Neutrophils (%) (Auto) 65 42-75 % Lymphocytes (%) (Auto) 27 12-44 % Monocytes (%) (Auto) 6 0-12 % Eosinophils (%) (Auto) 2 0-10 % Basophils (%) (Auto) 0 0-10 % Neutrophils # (Auto) 7.8 1.8-7.8 X 10^3 Lymphocytes # (Auto) 3.2 1.0-4.0 X 10^3 Monocytes # (Auto) 0.8 0.0-1.0 X 10^3 Eosinophils # (Auto) 0.2 0.0-0.3 10^3/uL Basophils # (Auto) 0.0 0.0-0.1 10^3/uL Prothrombin Time 13.1 12.2-14.7 SEC INR Comment 1.0 0.8-1.4 Activated Partial Thromboplast Time 30 24-35 SEC Sodium Level 139 135-145 MMOL/L Potassium Level 3.7 3.6-5.0 MMOL/L Chloride Level 105 98-107 MMOL/L Carbon Dioxide Level 21 21-32 MMOL/L Anion Gap 13 5-14 MMOL/L Blood Urea Nitrogen 11 7-18 MG/DL Creatinine 0.79 0.60-1.30 MG/DL Estimat Glomerular Filtration Rate > 60 BUN/Creatinine Ratio 14 Glucose Level 103 70-105 MG/DL Calcium Level 8.8 8.5-10.1 MG/DL Human Chorionic Gonadotropin, Quant 84658 H <5 MIU/ML My Orders Orders - BRETT HASSAN DO Urine Bedside (04/27/18 20:11) Straight Cath For Spec.-Adult (04/27/18 20:11) Ua Culture If Indicated (04/27/18 20:11) Basic Metabolic Panel (04/27/18 21:10) Cbc With Automated Diff (04/27/18 21:10) Hcg,Quantitative (04/27/18 21:10) Protime With Inr (04/27/18 21:10) Partial Thromboplastin Time (04/27/18 21:10) Acetaminophen Tablet (Tylenol Tablet) (04/27/18 22:00) Medications Given in ED Current Medications Medications Dose Ordered Sig/Violette Route Start Time Stop Time Status Last Admin Dose Admin Acetaminophen 1,000 mg ONCE ONCE PO 04/27/18 22:00 04/27/18 22:01 DC 04/27/18 22:02 1,000 MG Vital Signs/I&O 04/27/18 04/27/18 19:56 22:08 Temp 98.4 98.4 Pulse 81 80 Resp 17 17 B/P (MAP) 146/90 (108) 140/88 (105) Pulse Ox 100 O2 Delivery Room Air Capillary Refill : Less Than 3 Seconds Blood Pressure Mean: 108 Progress Note : Progress Note BLOOD TYPE IS B+ NO BLEEDING OR PAIN DURING ER STAY NO ULTRASOUND CAPABILITY HERE AT THIS TIME. Departure Impression Primary Impression: Threatened in early Disposition: HOME, SELF-CARE Condition: Stable Departure-Patient Inst. Referrals: BRINA CM MD (PCP/Family) Primary Care Physician Patient Instructions: Bleeding With (DC), Threatened Miscarriage (DC) Add. Discharge Instructions: LOTS OF FLUIDS NOTHING IN VAGINA--NO TAMPONS, DOUCHING OR INTERCOURSE TYLENOL NEEDED FOR PAIN FOLLOW UP WITH [facility] IN 2-3 DAYS FOR FURTHER CARE, RETURN TO ER IF WORSE All discharge instructions reviewed with patient and/or family. Voiced understanding. Scripts Pnv No.122/Iron/Folic Acid ( Multi Tablet) 1 Each Tablet 1 EACH PO DAILY, #30 TAB Prov: BRETT HASSAN DO 04/27/18 BRETT HASSAN DO Apr 27, 2018 21:51
[2018-04-27] MEDS ORDERED: ACETAMINOPHEN 500 MG TAB (TYLENOL) PO ONE (22:00)
[2018-04-27 22:08] VITALS: BP 140/88
== END 2018-04-27 22:08 | disposition home or self-care (01) ==
LOC: EDUNIT# 19:40 → ER 19:41
DX: O20.0 Threatened abortion (principal); O99.519 Diseases of the respiratory system complicating pregnancy, unspecified trimester; J44.9 Chronic obstructive pulmonary disease, unspecified; O99.320 Drug use complicating pregnancy, unspecified trimester; F12.10 Cannabis abuse, uncomplicated; O99.619 Diseases of the digestive system complicating pregnancy, unspecified trimester; K21.9 Gastro-esophageal reflux disease without esophagitis; O99.210 Obesity complicating pregnancy, unspecified trimester; E66.01 Morbid (severe) obesity due to excess calories; O99.340 Other mental disorders complicating pregnancy, unspecified trimester; F32.9 Major depressive disorder, single episode, unspecified; O99.019 Anemia complicating pregnancy, unspecified trimester; D64.9 Anemia, unspecified; O99.330 Smoking (tobacco) complicating pregnancy, unspecified trimester; F17.210 Nicotine dependence, cigarettes, uncomplicated; Z87.440 Personal history of urinary (tract) infections; Z87.19 Personal history of other diseases of the digestive system; Z86.19 Personal history of other infectious and parasitic diseases; Z80.3 Family history of malignant neoplasm of breast; Z79.51 Long term (current) use of inhaled steroids; Z3A.00 Weeks of gestation of pregnancy not specified
CPT/HCPCS: 36415; 51701; 80048; 81000; 84702; 84703; 85025; 85610; 85730

== ENCOUNTER 2018-05-02 12:53 | Emergency (ER) | payer MEDICAID ==
[~2018-05-02] VITALS: Ht 182.9 cm; Wt 155.6 kg
[~2018-05-02 12:53] MED LIST changes: +PNV1TABL81 PO
--- OUTSIDE RECORDS SUMMARY | 2018-05-02 13:01 | XMS REPORT | Continuity of Care Document ---
Author Author [facility] Organization [facility] Address Unknown Phone Unavailable Allergies Active Description Code Type Severity Reaction Onset Reported/Identified Relationship to Patient Clinical Status Yes No Known Drug Allergies [id number] Drug Allergy Unknown N/A 10/20/2012 Medications There [...] GASTRO-ESOPHAGEAL REFLUX DISEASE WITHOUT 01/26/2018 ARIAN, SHANNAN REWINDER OPERATOR Ot S05.01XA INJ CONJUNCTIVA AND CORNEAL ABRASION W/O 01/26/2018 ARIAN, SHANNAN REWINDER OPERATOR Ot X58.XXXA EXPOSURE TO OTHER SPECIFIED FACTORS, INI 01/26/2018 ARIANSHANNAN Goldstein REWINDER OPERATOR Ot Z79.51 RESIDENTIAL (CURRENT) USE OF INHALED STERO 01/26/2018 ARIAN SHANNAN REWINDER OPERATOR Ot Z79.52 COMMERCIAL ATTACHE (CURRENT) USE OF SYSTEMIC STER 01/26/2018 ARIAN, SHANNAN REWINDER OPERATOR Ot Z80.3 FAMILY HISTORY OF MALIGNANT NEOPLASM OF 01/26/2018 ARIAN, SHANNAN REWINDER OPERATOR Ot Z86.19 PERSONAL HISTORY OF OTHER INFECTIOUS AND 01/26/2018 ARIAN, SHANNAN REWINDER OPERATOR Ot Z87.19 PERSONAL HISTORY OF OTHER DISEASES OF 01/26/2018 ARIAN SHANNAN REWINDER OPERATOR Ot Z87.448 PERSONAL HISTORY OF OTHER DISEASES OF UR 01/28/2018 SHANNAN DON REWINDER OPERATOR Ot D64.9 ANEMIA, UNSPECIFIED 01/28/2018 ARIAN SHANNAN REWINDER OPERATOR Ot F17.210 NICOTINE DEPENDENCE, CIGARETTES, UNCOMPL 01/28/2018 ARIAN SHANNAN REWINDER OPERATOR Ot F32.9 MAJOR DEPRESSIVE DISORDER, SINGLE EPISOD 01/28/2018 ARIAN, SHANNAN REWINDER OPERATOR Ot H57.11 OCULAR PAIN, RIGHT EYE 01/28/2018 ARIAN SHANNAN REWINDER OPERATOR Ot J44.9 CHRONIC OBSTRUCTIVE PULMONARY DISEASE, U 01/28/2018 ARIAN SHANNAN REWINDER OPERATOR Ot K21.9 GASTRO-ESOPHAGEAL REFLUX DISEASE WITHOUT 01/28/2018 ARIANSHANNAN GoldsteinP Ot S05.01XA INJ CONJUNCTIVA AND CORNEAL ABRASION W/O 01/28/2018 ARIAN, SHANNAN REWINDER OPERATOR Ot X58.XXXA EXPOSURE TO OTHER SPECIFIED FACTORS, INI 01/28/2018 ARIAN SHANNAN REWINDER OPERATOR Ot Z79.51 COMMERCIAL ATTACHE (CURRENT) USE OF INHALED STERO 01/28/2018 ARIAN SHANNAN REWINDER OPERATOR Ot Z79.52 RESIDENTIAL (CURRENT) USE OF SYSTEMIC STER 01/28/2018 ARIAN, HSANNAN REWINDER OPERATOR Ot Z80.3 FAMILY HISTORY OF MALIGNANT NEOPLASM OF 01/28/2018 ARIAN, SHANNAN REWINDER OPERATOR Ot Z86.19 PERSONAL HISTORY OF OTHER INFECTIOUS AND 01/28/2018 ARIAN SHANNAN REWINDER OPERATOR Ot Z87.19 PERSONAL HISTORY OF OTHER DISEASES OF 01/28/2018 SHANNAN DON Ot Z87.448 PERSONAL HISTORY OF OTHER DISEASES OF UR 04/27/2018 BRETT HASSAN DO Ot D64.9 ANEMIA, UNSPECIFIED 04/27/2018 BRETT HASSAN DO Ot E66.01 MORBID (SEVERE) OBESITY DUE TO EXCESS CA 04/27/2018 BRETT HASSAN DO Ot F12.10 CANNABIS ABUSE, UNCOMPLICATED 04/27/2018 BRETT HASSAN DO Ot F17.210 NICOTINE DEPENDENCE, CIGARETTES, UNCOMPL 04/27/2018 BRETT HASSAN DO Ot F32.9 MAJOR DEPRESSIVE DISORDER, SINGLE EPISOD 04/27/2018 BRETT HASSAN DO Ot J44.9 CHRONIC OBSTRUCTIVE PULMONARY DISEASE, U 04/27/2018 BRETT HASSAN DO Ot K21.9 GASTRO-ESOPHAGEAL REFLUX DISEASE WITHOUT 04/27/2018 BRETT HASSAN DO Ot O20.0 THREATENED 04/27/2018 BRETT HASSAN DO Ot O20.9 HEMORRHAGE IN EARLY , UNSPECIFI 04/27/2018 BRETT HASSAN DO Ot O99.019 ANEMIA COMPLICATING , UNSPECIFI 04/27/2018 BRETT HASSAN DO Ot O99.210 OBESITY COMPLICATING , UNSPECIF 04/27/2018 BRETT HASSAN DO Ot O99.320 DRUG USE COMPLICATING , UNSPECI 04/27/2018 BRETT HASSAN DO Ot O99.330 SMOKING (TOBACCO) COMPLICATING 04/27/2018 BRETT HASSAN DO Ot O99.340 OTH MENTAL DISORDERS COMPLICATING PREGNA 04/27/2018 BRETT HASSAN DO Ot O99.519 DISEASES OF THE RESP SYS COMP , 04/27/2018 BRETT HASSAN DO Ot O99.619 DISEASES OF THE DGSTV SYS COMP 04/27/2018 BRETT HASSAN DO Ot Z3A.00 WEEKS OF GESTATION OF NOT SPEC 04/27/2018 BRETT HASSAN DO Ot Z79.51 RESIDENTIAL (CURRENT) USE OF INHALED STERO 04/27/2018 BRETT HASSAN DO Ot Z80.3 FAMILY HISTORY OF MALIGNANT NEOPLASM OF 04/27/2018 BRETT HASSAN DO Ot Z86.19 PERSONAL HISTORY OF OTHER INFECTIOUS AND 04/27/2018 SONYA BRETT TRONCOSO Ot Z87.19 PERSONAL HISTORY OF OTHER DISEASES OF TH 04/27/2018 BRETT HASSAN DO Ot Z87.440 PERSONAL HISTORY OF URINARY (TRACT) INFE 04/29/2018 BRETT HASSAN DO Ot D64.9 ANEMIA, UNSPECIFIED 04/29/2018 BRETT HASSAN DO Ot E66.01 MORBID (SEVERE) OBESITY DUE TO EXCESS CA 04/29/2018 BRETT HASSAN DO Ot F12.10 CANNABIS ABUSE, UNCOMPLICATED 04/29/2018 SONYA BRETT TRONCOSO Ot F17.210 NICOTINE DEPENDENCE, CIGARETTES, UNCOMPL 04/29/2018 SONYA BRETT TRONCOSO Ot F32.9 MAJOR DEPRESSIVE DISORDER, SINGLE EPISOD 04/29/2018 SONYA BRETT TRONCOSO Ot J44.9 CHRONIC OBSTRUCTIVE PULMONARY DISEASE, U 04/29/2018 BRETT HASSAN DO Ot K21.9 GASTRO-ESOPHAGEAL REFLUX DISEASE WITHOUT 04/29/2018 BRETT HASSAN DO Ot O20.0 THREATENED 04/29/2018 BRETT HASSAN DO Ot O20.9 HEMORRHAGE IN EARLY , UNSPECIFI 04/29/2018 BRETT HASSAN DO Ot O99.019 ANEMIA COMPLICATING , UNSPECIFI 04/29/2018 BRETT HASSAN DO Ot O99.210 OBESITY COMPLICATING , UNSPECIF 04/29/2018 BRETT HASSAN DO Ot O99.320 DRUG USE COMPLICATING , UNSPECI 04/29/2018 BRETT HASSAN DO Ot O99.330 SMOKING (TOBACCO) COMPLICATING 04/29/2018 BRETT HASSAN DO Ot O99.340 OTH MENTAL DISORDERS COMPLICATING PREGNA 04/29/2018 BRETT HASSAN DO Ot O99.519 DISEASES OF THE RESP SYS COMP , 04/29/2018 BRETT HASSAN DO Ot O99.619 DISEASES OF THE DGSTV SYS COMP 04/29/2018 BRETT HASSAN DO Ot Z3A.00 WEEKS OF GESTATION OF NOT SPEC 04/29/2018 BRETT HASSAN DO Ot Z79.51 COMMERCIAL ATTACHE (CURRENT) USE OF INHALED STERO 04/29/2018 BRETT HASSAN DO Ot Z80.3 FAMILY HISTORY OF MALIGNANT NEOPLASM OF 04/29/2018 BRETT HASSAN DO Ot Z86.19 PERSONAL HISTORY OF OTHER INFECTIOUS AND 04/29/2018 BRETT HASSAN DO Ot Z87.19 PERSONAL HISTORY OF OTHER DISEASES OF 04/29/2018 BRETT HASSAN DO Ot Z87.440 PERSONAL HISTORY OF URINARY (TRACT) INFE Procedures Code Description Performed By Performed On [id number] DELIVERY OF PRODUCTS OF CONCEPTION, EXTE 10/16/2017 [id number] INTRODUCTION OF OTH HORMONE INTO PERIPH 10/16/2017 [...] 9.4 fL 7.5-12.5 ABSOLUTE NEUTROPHILS 6548 cells/uL 9587-8244 ABSOLUTE LYMPHOCYTES 2095 cells/uL 850-3900 ABSOLUTE MONOCYTES [...] ABO+Rh group BP NRG Transfusion band number [id number] Blood group antibody screen NEGATIVE NR Complete blood count (CBC) with automated white [...] 01/08/18 15:34 CULTURE, GENITAL SEE NOTE NRG Complete urinalysis with reflex to culture - 04/27/18 20:39 Urine color determination YELLOW NRG Urine clarity determination CLEAR NRG Urine pH measurement by test strip 6 5-9 Specific gravity of urine by test strip 1.020 1.016- 1.022 Urine protein assay by test strip, semi-quantitative NEGATIVE NEGATIVE Urine glucose detection by automated test strip NEGATIVE NEGATIVE Erythrocytes detection in urine sediment by light microscopy 2+ NEGATIVE Urine ketones detection by automated test strip NEGATIVE NEGATIVE Urine nitrite detection by test strip NEGATIVE NEGATIVE Urine total bilirubin detection by test strip NEGATIVE NEGATIVE Urine urobilinogen measurement by automated test strip (mass/volume) 1 mg/dL NORMAL Urine leukocyte esterase detection by dipstick NEGATIVE NEGATIVE Automated urine sediment erythrocyte count by microscopy (number/high power field) [HPF] NRG Automated urine sediment leukocyte count by microscopy (number/high power field ) NONE NRG Bacteria detection in urine sediment by light microscopy NONE NRG Squamous epithelial cells detection in urine sediment by light microscopy 5-10 NRG Crystals detection in urine sediment by light microscopy NONE NRG Casts detection in urine sediment by light microscopy NONE NRG Mucus detection in urine sediment by light microscopy NEGATIVE NRG Complete urinalysis with reflex to culture NO NRG Whole blood basic metabolic panel - 04/27/18 21:20 Serum or plasma sodium measurement (moles/volume) 139 mmol/L 135-145 Serum or plasma potassium measurement (moles/volume) 3.7 mmol/L 3.6-5.0 Serum or plasma chloride measurement (moles/volume) 105 mmol/L 98-107 Carbon dioxide 21 mmol/L 21-32 Serum or plasma anion gap determination (moles/volume) 13 mmol/L 5-14 Serum or plasma urea nitrogen measurement (mass/volume) 11 mg/dL 7-18 Serum or plasma creatinine measurement (mass/volume) 0.79 mg/dL 0.60-1.30 Serum or plasma urea nitrogen/creatinine mass ratio 14 NRG Serum or plasma creatinine measurement with calculation of estimated glomerular filtration rate > NRG Serum or plasma glucose measurement (mass/volume) 103 mg/dL 70-105 Serum or plasma calcium measurement (mass/volume) 8.8 mg/dL 8.5-10.1 PT panel in platelet poor plasma by coagulation assay - 04/27/18 21:20 Prothrombin time (PT) in platelet poor plasma by coagulation assay 13.1 s 12.2-14.7 INR in platelet poor plasma or blood by coagulation assay 1.0 0.8-1.4 Activated partial thromboplastin time (aPTT) in platelet poor plasma bycoagulation assay - 04/27/18 21:20 Activated partial thromboplastin time (aPTT) in platelet poor plasma bycoagulation assay 30 s 24-35 Complete blood count (CBC) with automated white blood cell (WBC) differential - 04/27/18 21:20 Blood leukocytes automated count (number/volume) 12.0 10*3/uL 4.3-11.0 Blood erythrocytes automated count (number/volume) 4.63 10*6/uL 4.35-5.85 Venous blood hemoglobin measurement (mass/volume) 12.1 g/dL 11.5-16.0 Blood hematocrit (volume fraction) 39 % 35-52 Automated erythrocyte mean corpuscular volume 85 [foz_us] 80-99 Automated erythrocyte mean corpuscular hemoglobin (mass per erythrocyte) 26 pg 25-34 Automated erythrocyte mean corpuscular hemoglobin concentration measurement ( mass/volume) 31 g/dL 32-36 Automated erythrocyte distribution width ratio 14.0 % 10.0-14.5 Automated blood platelet count (count/volume) 314 10*3/uL 130-400 Automated blood platelet mean volume measurement 8.8 [foz_us] 7.4-10.4 Automated blood neutrophils/100 leukocytes 65 % 42-75 Automated blood lymphocytes/100 leukocytes 27 % 12-44 Blood monocytes/100 leukocytes 6 % 0-12 Automated blood eosinophils/100 leukocytes 2 % 0-10 Automated blood basophils/100 leukocytes 0 % 0-10 Blood neutrophils automated count (number/volume) 7.8 10*3 1.8-7.8 Blood lymphocytes automated count (number/volume) 3.2 10*3 1.0-4.0 Blood monocytes automated count (number/volume) 0.8 10*3 0.0-1.0 Automated eosinophil count 0.2 10*3/uL 0.0-0.3 Automated blood basophil count (count/volume) 0.0 10*3/uL 0.0-0.1 Serum or plasma choriogonadotropin measurement (units/volume) - 04/27/18 21:20 Serum or plasma choriogonadotropin measurement (units/volume) 40036 m[iU]/mL <5 Encounters ACCT No. Visit Date/Time Discharge Status Pt. Type Provider Facility Loc./Unit Complaint [id number] 04/27/2018 19:41:00 04/27/2018 22:08:00 DIS Emergency BRETT HASSAN DO [facility] ER ABD CRAMPING AND BLEEDING [id number] 01/26/2018 16:18:00 01/26/2018 17:59:00 DIS Emergency SHANNAN DON [facility] ER SPIDER IN R EYE [id number] 09/18/2017 11:08:00 09/18/2017 17:00:00 DIS Outpatient BETTINA ZAVALA DO [facility] WSo DECREASED MOVEMENT/LOWER BACK PAIN/MUCUS DIS [id number] 09/01/2017 11:38:00 09/01/2017 17:45:00 DIS Outpatient TOÑO BONILLA DO [facility] WSo VOMITING/HEADACHE [id number] 08/28/2017 08:57:00 08/28/2017 23:59:59 CLS Preadmit TOI SAAB, BRINA Rios [facility] RAD 30 WEEKS GESTATION OF [id number] 10/20/2012 20:25:00 10/20/2012 21:35:00 DIS Emergency NELIA SAAB, SHEILA [facility] [id number] 10/17/2017 09:00:00 Document Registration [id number] 04/17/2018 16:00:00 04/17/2018 23:59:59 [facility] Outpatient BRINA CM [facility] [id number] 01/08/2018 14:40:00 Document Registration [id number] 10/01/2017 13:20:00 Document Registration [id number] 07/31/2017 09:00:00 Document Registration
[2018-05-02] MEDS ORDERED: ONDANSETRON 4 MG/2 ML (SDV) Z0FRAN ONE (13:10)
[2018-05-02] MEDS ORDERED: ONDANSETRON 4 MG/2 ML (SDV) Z0FRAN IVP ONE (14:15)
[2018-05-02 14:17] LABS: BASOPHILS % (AUTO) 0 % (0-10); EOSINOPHILS # (AUTO) 0.3 10^3/uL (0.0-0.3); EOSINOPHILS % (AUTO) 3 % (0-10); HEMATOCRIT 41 % (35-52); HEMOGLOBIN 12.6 G/DL (11.5-16.0); LYMPHOCYTES # (AUTO) 1.7 X 10^3 (1.0-4.0); LYMPHOCYTES % (AUTO) 17 % (12-44); MEAN CORPUSCULAR HEMOGLOBIN 26 PG (25-34); MEAN CORPUSCULAR HGB CONC 31 G/DL (32-36); MEAN CORPUSCULAR VOLUME 85 FL (80-99); MEAN PLATELET VOLUME 9.3 FL (7.4-10.4); MONOCYTES # (AUTO) 0.7 X 10^3 (0.0-1.0); MONOCYTES % (AUTO) 8 % (0-12); NEUTROPHILS # (AUTO) 6.9 X 10^3 (1.8-7.8); NEUTROPHILS % (AUTO) 72 % (42-75); PLATELET COUNT 299 10^3/uL (130-400); RED CELL DISTRIBUTION WIDTH 13.8 % (10.0-14.5); WHITE BLOOD COUNT 9.7 10^3/uL (4.3-11.0)
[2018-05-02 14:26] LABS: BUN/CREATININE RATIO 9; CALCIUM 9.1 MG/DL (8.5-10.1); CARBON DIOXIDE 24 MMOL/L (21-32); CHLORIDE 105 MMOL/L (98-107); CREATININE SERUM 0.78 MG/DL (0.60-1.30); GFR ESTIMATED > 60; GLUCOSE 94 MG/DL (70-105); POTASSIUM 3.7 MMOL/L (3.6-5.0); SODIUM 138 MMOL/L (135-145)
--- NOTE | 2018-05-02 14:42 | ED Cardiac General ---
History of Present Illness General Chief Complaint: Abdominal/GI Problems Stated Complaint: CHEST PAIN Nursing Triage Note: Ambulatory to triage. Pt reports feeling SOB, and as if pt is going to have a panic attack for 2 days. Pt reports, "It feels like something is on my chest." Pt c/o heart racing, dizziness. Pt also reports nausea and vomiting. Pt reports being 5-6 weeks . Source: patient Exam Limitations: no limitations History of Present Illness Date Seen by Provider: May 02, 2018 Time Seen by Provider: 14:40 Initial Comments To ER with reports of shortness of breath, palpitations, heart racing, dizziness , nausea and on the verge of panic attack for the past 2-3 days. She found out 3 -4 days ago that she was . She was seen here in the emergency room at that time for vaginal bleeding. Ultrasound was not available. She has persistent vaginal bleeding and lower abdominal cramping. Timing/Duration: 2-3 days Severity: moderate Location: central Activities at Onset: none NTG SL ELEMENTARY SUPERVISOR: No ASA po ELEMENTARY SUPERVISOR: No Allergies and Home Medications Allergies Coded Allergies: No Known Drug Allergies (Unverified , 10/20/12) Home Medications Acyclovir 400 Mg Tablet, 400 MG PO BID, (Reported) Albuterol 8.5 Gm Hfa.aer.ad, 8.5 GM IH Q2, (Reported) 2 PUFFS Beclomethasone Dipropionate 8.7 Gm Aer.w.adap, 8.7 GM IH BID Prescribed by: BETTINA ZAVALA on 09/18/17 1540 Ferrous Sulfate 325 Mg Tablet, 325 MG PO DAILY Prescribed by: BRINA CM on 10/18/17 0948 Ibuprofen 600 Mg Tablet, 600 MG PO Q6H Prescribed by: BRINA CM on 10/18/17 0948 Ipratropium/Albuterol Sulfate 3 Ml Ampul.neb, 3 ML IH Q6H PRN for SHORTNESS OF BREATH Prescribed by: BETTINA ZAVALA on 09/18/17 1540 Metronidazole 500 Mg Tablet, 500 MG PO BID, (Reported) Pnv No.122/Iron/Folic Acid 1 Each Tablet, 1 EACH PO DAILY Prescribed by: BRETT HASSAN on 04/27/18 4701 Patient Home Medication List Home Medication List Reviewed: Yes Review of Systems Review of Systems Constitutional: see HPI EENTM: No Symptoms Reported Respiratory: SOA at Rest Cardiovascular: See HPI, Chest Pain Gastrointestinal: See HPI, Nausea Musculoskeletal: no symptoms reported Skin: no symptoms reported Psychiatric/Neurological: See HPI, Anxiety Past Jgoabui-Qifldy-Kbqkfd Hx Patient Social History Alcohol Use: Denies Use Recreational Drug Use: Yes Drug of Choice: MARIJUANA Smoking Status: Current Everyday Smoker Type Used: Cigarettes 2nd Hand Smoke Exposure: Yes Recent Foreign Travel: No Contact w/Someone Who Travel: No Recent Infectious Disease Expo: No Recent Hopitalizations: No Physical Abuse: No Sexual Abuse: No Immunizations Up To Date Tetanus Booster (TDap): Less than 5yrs PED Vaccines UTD: Yes Seasonal Allergies Seasonal Allergies: Yes Past Medical History Surgeries: Yes (wisdom teeth,surgery on intestines as an ) Abdominal Respiratory: Yes Asthma, COPD Currently Using CPAP: No Currently Using BIPAP: No Cardiac: No Neurological: No : Yes Last Menstrual Period: Mar 15, 2018 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 Disorders: No 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, Ovarian Cyst Sexually Transmitted Disease: Yes (HERPES) HIV/AIDS: No Genitourinary: Yes UTI-Chronic Gastrointestinal: Yes Gastroesophageal Reflux, Hemorrhoids Musculoskeletal: No Endocrine: Yes (MORBID OBESITY) HEENT: No Loss of Vision: Denies Hearing Impairment: Denies Cancer: No Psychosocial: Yes Depression Integumentary: Yes Herpes Blood Disorders: Yes (anemia) Adverse Reaction/Blood Tranf: No Family Medical History Asthma 19 FATHER G8 BROTHER Completed stroke MATERNAL GRANDFATHER Diabetes mellitus 19 FATHER 19 MOTHER Drug abuse 19 FATHER G8 BROTHER G8 BROTHER G8 BROTHER FH: breast cancer MATERNAL GRANDMOTHE ( AGE 71) Headache disorder G8 SISTER Hypertension 19 MOTHER G8 BROTHER Psychosocial problem G8 BROTHER Seizure disorder MATERNAL GRANDMOTHE Physical Exam Vital Signs Vital Signs - First Documented 05/02/18 12:57 Temp 95.6 Pulse 72 Resp 15 B/P (MAP) 160/74 (102) Pulse Ox 100 O2 Delivery Room Air Capillary Refill : Less Than 3 Seconds Height, Weight, BMI Height: 6'0" Weight: 343lbs. 0.8oz. 155.032957tf; 47.9 BMI Method:Stated General Appearance: No Apparent Distress, WD/WN HEENT: PERRL/EOMI, TMs Normal Neck: Full Range of Motion, Normal Inspection Respiratory: No Accessory Muscle Use, No Respiratory Distress Cardiovascular: Regular Rate, Rhythm, Normal Peripheral Pulses Gastrointestinal: Normal Bowel Sounds, Non Tender, Soft Neurologic/Psychiatric: Alert, Oriented x3 Skin: Normal Color, Warm/Dry Progress/Results/Core Measures Results/Orders Lab Results Laboratory Tests Test 05/02/18 13:10 05/02/18 14:37 Range/Units White Blood Count 9.7 4.3-11.0 10^3/uL Red Blood Count 4.82 4.35-5.85 10^6/uL Hemoglobin 12.6 11.5-16.0 G/DL Hematocrit 41 35-52 % Mean Corpuscular Volume 85 80-99 FL Mean Corpuscular Hemoglobin 26 25-34 PG Mean Corpuscular Hemoglobin Concent 31 L 32-36 G/DL Red Cell Distribution Width 13.8 10.0-14.5 % Platelet Count 299 130-400 10^3/uL Mean Platelet Volume 9.3 7.4-10.4 FL Neutrophils (%) (Auto) 72 42-75 % Lymphocytes (%) (Auto) 17 12-44 % Monocytes (%) (Auto) 8 0-12 % Eosinophils (%) (Auto) 3 0-10 % Basophils (%) (Auto) 0 0-10 % Neutrophils # (Auto) 6.9 1.8-7.8 X 10^3 Lymphocytes # (Auto) 1.7 1.0-4.0 X 10^3 Monocytes # (Auto) 0.7 0.0-1.0 X 10^3 Eosinophils # (Auto) 0.3 0.0-0.3 10^3/uL Basophils # (Auto) 0.0 0.0-0.1 10^3/uL Sodium Level 138 135-145 MMOL/L Potassium Level 3.7 3.6-5.0 MMOL/L Chloride Level 105 98-107 MMOL/L Carbon Dioxide Level 24 21-32 MMOL/L Anion Gap 9 5-14 MMOL/L Blood Urea Nitrogen 7 7-18 MG/DL Creatinine 0.78 0.60-1.30 MG/DL Estimat Glomerular Filtration Rate > 60 BUN/Creatinine Ratio 9 Glucose Level 94 70-105 MG/DL Calcium Level 9.1 8.5-10.1 MG/DL Magnesium Level 1.9 1.8-2.4 MG/DL Troponin I < 0.028 <0.028 NG/ML B-Type Natriuretic Peptide 13.8 <100.0 PG/ML Thyroid Stimulating Hormone (TSH) 0.34 L 0.35-4.94 UIU/ML Free Thyroxine 1.02 0.70-1.48 NG/DL Human Chorionic Gonadotropin, Quant 86634 H <5 MIU/ML Urine Opiates Screen NEGATIVE NEGATIVE Urine Oxycodone Screen NEGATIVE NEGATIVE Urine Methadone Screen NEGATIVE NEGATIVE Urine Propoxyphene Screen NEGATIVE NEGATIVE Urine Barbiturates Screen NEGATIVE NEGATIVE Ur Tricyclic Antidepressants Screen NEGATIVE NEGATIVE Urine Phencyclidine Screen NEGATIVE NEGATIVE Urine Amphetamines Screen NEGATIVE NEGATIVE Urine Methamphetamines Screen NEGATIVE NEGATIVE Urine Benzodiazepines Screen NEGATIVE NEGATIVE Urine Cocaine Screen NEGATIVE NEGATIVE Urine Cannabinoids Screen POSITIVE H NEGATIVE My Orders Orders - JOSE ROACH APRN Cbc With Automated Diff (05/02/18 14:11) Thyroid Stimulating Hormone (05/02/18 14:11) Basic Metabolic Panel (05/02/18 14:11) Drug Screen Stat (Urine) (05/02/18 14:11) Hcg,Quantitative (05/02/18 14:11) Ekg Tracing (05/02/18 14:11) Ondansetron Injection (Zofran Injectio (05/02/18 14:15) Us Ob<14 Wks Sngle W/Transvag (05/02/18 14:31) BNP (05/02/18 14:42) Magnesium (05/02/18 14:42) Troponin I (05/02/18 14:42) Free T4 (Free Thyroxine) (05/02/18 14:53) Promethazine Injection (Phenergan Injec (05/02/18 16:30) Promethazine Injection (Phenergan Injec (05/02/18 16:19) Medications Given in ED Current Medications Medications Dose Ordered Sig/Violette Route Start Time Stop Time Status Last Admin Dose Admin Ondansetron HCl 4 mg STK-MED ONCE .ROUTE 05/02/18 13:10 05/02/18 13:15 DC 05/02/18 13:16 8 MG Promethazine HCl 12.5 mg ONCE ONCE IVP 05/02/18 16:30 05/02/18 16:31 DC 05/02/18 16:25 12.5 MG Vital Signs/I&O 05/02/18 12:57 Temp 95.6 Pulse 72 Resp 15 B/P (MAP) 160/74 (102) Pulse Ox 100 O2 Delivery Room Air Blood Pressure Mean: 102 Departure Impression Primary Impression: Nausea & vomiting Qualified Codes: R11.2 - Nausea with vomiting, unspecified Additional Impressions: Palpitations Anxiety 7 weeks gestation of Disposition: HOME, SELF-CARE Condition: Stable Departure-Patient Inst. Decision time for Depature: 16:58 Referrals: BRINA CM MD (PCP/Family) Primary Care Physician Patient Instructions: Chest Pain Add. Discharge Instructions: 1. Follow-up with your doctor on Saturday 2. Return to ER for any concerns 3. All discharge instructions reviewed with patient and/or family. Voiced understanding. Scripts Promethazine HCl (Promethazine Tablet) 25 Mg Tablet 25 MG PO Q6H PRN for NAUSEA/VOMITING, #14 TAB Prov: JOSE ROACH APRN 05/02/18 Work/School Note: Work Release Form Date Seen in the Emergency Department: May 02, 2018 Return to Work: Apr 30, 2018 JOSE ROACH APRN May 02, 2018 14:42
[2018-05-02 14:58] LABS: MAGNESIUM 1.9 MG/DL (1.8-2.4)
[2018-05-02 15:04] LABS: AMPHETAMINE SCREEN, URINE NEGATIVE (NEGATIVE); BARBITURATE SCREEN URINE NEGATIVE (NEGATIVE); BENZODIAZEPINES SCREEN URINE NEGATIVE (NEGATIVE); CANNABINOID SCREEN, URINE POSITIVE (NEGATIVE); COCAINE SCREEN URINE NEGATIVE (NEGATIVE); METHADONE STAT NEGATIVE (NEGATIVE); METHAMPHETAMINE SCREEN URINE S NEGATIVE (NEGATIVE); OPIATE SCREEN URINE NEGATIVE (NEGATIVE); OXYCODONE STAT NEGATIVE (NEGATIVE); PROPOXYPHENE STAT NEGATIVE (NEGATIVE); TRICYCLIC ANTIDEPRESSANTS SCRE NEGATIVE (NEGATIVE)
--- NOTE | 2018-05-02 15:35 | Diagnostic Imaging Report ---
INDICATION: Chest pain. FINDINGS: There is an intrauterine gestational sac containing a pole. [place]-rump length measurement is approximately 9 mm consistent with 7 weeks 1 day gestation. heart rate was recorded at 141 beats per minute. No perigestational sac hemorrhage is detected. Adnexal evaluation was performed. Ovaries are not visualized and obscured by bowel gas. No adnexal mass or free fluid is seen. IMPRESSION: Single live IUP of approximately 7 weeks 1 day gestational age. Estimated date of confinement sonographically is 12/18/2018. Dictated by: Dictated on workstation # [id number]
--- NOTE | 2018-05-02 16:00 | NUR ---
PT COMPLAINS OF NAUSEA ET PETER NOTIFIED.
[2018-05-02] MEDS ORDERED: PROMETHAZINE INJ 25 MG/ML (PHENERGAN) AMP ONE (16:19)
[2018-05-02] MEDS ORDERED: PROMETHAZINE INJ 25 MG/ML (PHENERGAN) AMP IVP ONE (16:30)
--- NOTE | 2018-05-02 16:30 | NUR ---
JOSE IN TALKING WITH PT AT THIS TIME.
[2018-05-02] MEDS ORDERED: PROM25TA14 PO (16:59)
[2018-05-02 17:04] VITALS: BP 146/78
== END 2018-05-02 17:04 | disposition home or self-care (01) ==
LOC: EDUNIT# 12:53 → ER 12:55
DX: O21.9 Vomiting of pregnancy, unspecified (principal); O26.891 Other specified pregnancy related conditions, first trimester; R00.2 Palpitations; O99.341 Other mental disorders complicating pregnancy, first trimester; F41.9 Anxiety disorder, unspecified; F32.9 Major depressive disorder, single episode, unspecified; O99.511 Diseases of the respiratory system complicating pregnancy, first trimester; J44.9 Chronic obstructive pulmonary disease, unspecified; O99.611 Diseases of the digestive system complicating pregnancy, first trimester; K21.9 Gastro-esophageal reflux disease without esophagitis; O99.211 Obesity complicating pregnancy, first trimester; E66.01 Morbid (severe) obesity due to excess calories; O99.011 Anemia complicating pregnancy, first trimester; D64.9 Anemia, unspecified; O99.321 Drug use complicating pregnancy, first trimester; F12.10 Cannabis abuse, uncomplicated; O99.331 Smoking (tobacco) complicating pregnancy, first trimester; F17.210 Nicotine dependence, cigarettes, uncomplicated; Z86.19 Personal history of other infectious and parasitic diseases; Z87.440 Personal history of urinary (tract) infections; Z87.448 Personal history of other diseases of urinary system; Z80.3 Family history of malignant neoplasm of breast; Z79.51 Long term (current) use of inhaled steroids; Z79.52 Long term (current) use of systemic steroids; Z3A.01 Less than 8 weeks gestation of pregnancy
CPT/HCPCS: 36415; 76801; 76817; 80048; 80306; 83735; 83880; 84439; 84443; 84484; 84702; 85025; 93005; 96374; 96375

== ENCOUNTER 2018-06-14 19:01 | Emergency (ER) | payer MEDICAID ==
[~2018-06-14] VITALS: Ht 180.3 cm; Wt 164.2 kg
[~2018-06-14 19:01] MED LIST changes: +PROM25TA14 PO
--- OUTSIDE RECORDS SUMMARY | 2018-06-14 19:18 | XMS REPORT ---
Author Author BRINA CM Organization [facility] Address [address] [place] [address] Care Team Providers Care Acid Painter Name Role Phone BRINA CM Unavailable PROBLEMS Type Condition ICD9-CM Code [id number] Code Onset Dates Condition Status SNOMED Code Problem Moderate persistent asthma with exacerbation J45.41 Active 296695868 Problem Morbid (severe) obesity due to excess calories E66.01 Active 266441545 Problem Obesity affecting in first trimester O99.211 Active 005420805347 Problem Obesity affecting in third trimester O99.213 Active 317961630567 Problem Seasonal allergies J30.2 Active 320264330 Problem BMI 45.0-49.9, adult Z68.42 Active 093482919 Problem Sinusitis J32.9 Active 70861045 ALLERGIES No Information ENCOUNTERS Encounter Location Date Diagnosis [place] [id number] [place] [address]2768- 9100 May, [place] [address] [place] [id number] [place] [address] 55449- 5121 May, Normal in multigravida Z34.80 ; 8 weeks gestation of Z3A.08 and Heart palpitations R00.2 [facility] [address] [place] [address] 28413- 6919 May, Moderate persistent asthma with exacerbation J45.41 [facility] [address] [place] [id number] [address] Apr, Normal in multigravida Z34.80 ; 8 weeks gestation of Z3A.08 ; Heart palpitations R00.2 ; Obesity affecting in first trimester O99.211 and BMI 50.0-59.9, adult Z68.43 [place] [address] [place] [id number] [place] [address] 20419- 9933 19 Apr, 2018 Dizziness R42 ; First trimester Z34.91 ; Morbid ( severe) obesity due to excess calories E66.01 ; History of pre-eclampsia Z87.59 and Intractable vomiting with nausea, unspecified vomiting type R11.2 [place] [address] [place] [id number] [place] [address] 10251- 6345 12 Apr, 2018 [place] [address] [address]- [address]12 Mar, Moderate persistent asthma with exacerbation J45.41 and BMI 45.0-49.9, adult Z68.42 [facility] [place] [address] [address] Mar, Sinusitis J32.9 ; Cerumen impaction H61.20 and BMI 50.0- 59.9, adult Z68.43 [place] [address] 34093- 3047 Dec, care and examination Z39.2 ; Moderate persistent asthma with exacerbation J45.41 ; Vaginal discharge N89.8 and BMI 45.0-49.9, adult Z68.42 [facility] [place] [address] [address]22[address] Dec, Seasonal allergies J30.2 [place] [address] [place] [id number] [place] [address] 30769- 9725 Sep, [place] [address] 41228- 6387 Sep, [place] [address] 81048- 9551 Sep, 36 weeks gestation of Z3A.36 ; Third trimester Z34.93 and Obesity affecting in third trimester O99.213 [place] [address] [place] [address] [place] [address] 27650- 3528 Sep, BMI 45.0-49.9, adult Z68.42 ; Third trimester Z34.93 ; 35 weeks gestation of Z3A.35 ; Obesity affecting in third trimester O99.213 and Vaginal discharge N89.8 [place] [address] [place] [address] [place] [address] 94283- 1301 Sep, [facility] [address] [place] [id number] [place] [address] 77004- 3937 Sep, [place] [address] 98408- 1099 Sep, Third trimester Z34.93 ; 34 weeks gestation of Z3A.34 ; Current with history of pre-term labor in third trimester O09.213 and Obesity affecting in third trimester O99.213 [place] [address] [place] [address] [place] [address] 74657- 2875 Sep, [address] [address]- [address] Sep, [facility] [address] [address] Aug, Acute maxillary sinusitis, recurrence not specified J01.00 ; Moderate persistent asthma with exacerbation J45.41 and Chest congestion R09.89 [place] [id number] [place] [address] 88643- 0969 Aug, Third trimester Z34.93 ; 32 weeks gestation of Z3A.32 ; Obesity affecting in third trimester O99.213 and BMI 45.0-49.9, adult Z68.42 [place] [address] [place] [id number] [place] [address] 16065- 2098 Aug, [address] [address]79- 7400 Aug, 30 weeks gestation of Z3A.30 ; Third trimester Z34.93 ; Nausea/vomiting in O21.9 ; Marijuana use F12.90 ; Obesity affecting in third trimester O99.213 and Encounter for immunization Z23 [address] [place] [address] Aug, [place] [address] [place] [address] [address] July, [place] [address] [place] [id number] [place] [address] 89050- 6787 July, Decreased movements in second trimester, single or unspecified fetus O36.8120 [place] [address] [place] [address] [place] [address] 10185- 2061 July, Decreased movements in second trimester, single or unspecified fetus O36.8120 [place] [address] [place] [address] [place] [address] 83403- 8810 July, [place] [address] [place] [address] [place] [address] 79510- 2019 July, Multigravida in second trimester Z34.82 ; 26 weeks gestation of Z3A.26 ; Moderate persistent asthma with exacerbation J45.41 and Obesity affecting in second trimester O99.212 [place] [address] [place] [address] [place] [address] 33432- 6195 Jun, [place] [address] [place] [address] [place] [address] 74662- 0518 Jun, Multigravida in second trimester Z34.82 ; Normal in multigravida Z34.80 ; 22 weeks gestation of Z3A.22 ; Obesity affecting in second trimester O99.212 ; Herpesviral infection, unspecified B00.9 and Other viral diseases complicating , second trimester O98.512 [place] [address] [place] [address] 63525- 8144 Jun, IMMUNIZATIONS No Known Immunizations SOCIAL HISTORY Never Assessed REASON FOR VISIT PLAN OF CARE VITAL SIGNS MEDICATIONS Medication Instructions Dosage Frequency Start Date End Date Duration Status Ventolin HFA 108 (90 base) mcg/act Inhalation every 6 hrs 2 puffs as needed 6h 25 Active Advair Diskus 250-50 MCG/DOSE Inhalation Twice a day 1 puff 12h Dec, Active RESULTS No Results PROCEDURES No Known procedures INSTRUCTIONS MEDICATIONS ADMINISTERED No Known Medications MEDICAL (GENERAL) HISTORY Type Description Date Medical History Preeclampsia history Medical History Asthma Medical History HSV 1&2 Medical History Hypertension Surgical History abdomen laparascopy Surgical History intestine surgery as infant Hospitalization History childbirth Hospitalization History [facility] for 09/2017
--- OUTSIDE RECORDS SUMMARY | 2018-06-14 19:18 | XMS REPORT ---
Author Author BRINA CM Organization [facility] Address [address] [place] [address] Care Team Providers Care Global Transportation Manager Name Role Phone BRINA CM Unavailable PROBLEMS Type Condition ICD9-CM Code [id number] Code Onset Dates Condition Status SNOMED Code Problem Moderate persistent asthma with exacerbation J45.41 Active 331411378 Problem Morbid (severe) obesity due to excess calories E66.01 Active 523397327 Problem Obesity affecting in first trimester O99.211 Active 998363566019 Problem Obesity affecting in third trimester O99.213 Active 821178803381 Problem Seasonal allergies J30.2 Active 815509477 Problem BMI 45.0-49.9, adult Z68.42 Active 308692424 Problem Sinusitis J32.9 Active 74934334 ALLERGIES No Information ENCOUNTERS Encounter Location Date Diagnosis [place] [address] [place] [address] 37445- 5755 May, [place] [address] [place] [id number] [place] [address] 96799- 0847 May, Normal in multigravida Z34.80 ; 8 weeks gestation of Z3A.08 and Heart palpitations R00.2 [facility] [address] [place] [address] 29867- 2315 May, Moderate persistent asthma with exacerbation J45.41 [facility] [address] [place] [id number] [address] 3[address] Apr, Normal in multigravida Z34.80 ; 8 weeks gestation of Z3A.08 ; Heart palpitations R00.2 ; Obesity affecting in first trimester O99.211 and BMI 50.0-59.9, adult Z68.43 [place] [address] [place] [id number] [place] [address] 99490- 5203 19 Apr, 2018 Dizziness R42 ; First trimester Z34.91 ; Morbid ( severe) obesity due to excess calories E66.01 ; History of pre-eclampsia Z87.59 and Intractable vomiting with nausea, unspecified vomiting type R11.2 [place] [address] [place] [id number] [place] [address] 85835- 8630 12 Apr, 2018 [place] [address] 41512- 8692 Mar, Moderate persistent asthma with exacerbation J45.41 and BMI 45.0-49.9, adult Z68.42 [facility] [place] [address] 424[address]63 Mar, Sinusitis J32.9 ; Cerumen impaction H61.20 and BMI 50.0- 59.9, adult Z68.43 [place] [address] 45643- 0502 Dec, care and examination Z39.2 ; Moderate persistent asthma with exacerbation J45.41 ; Vaginal discharge N89.8 and BMI 45.0-49.9, adult Z68.42 [facility] WALK IN [place] [address] 18707 -4190 Dec, Seasonal allergies J30.2 [place] [address] [place] [id number] [place] [address] 07439- 3277 Sep, [place] [address] 81342- 0715 Sep, [place] [address] 70221- 5325 Sep, 36 weeks gestation of Z3A.36 ; Third trimester Z34.93 and Obesity affecting in third trimester O99.213 [place] [address] [place] [id number] [place] [address] 03743- 4153 Sep, BMI 45.0-49.9, adult Z68.42 ; Third trimester Z34.93 ; 35 weeks gestation of Z3A.35 ; Obesity affecting in third trimester O99.213 and Vaginal discharge N89.8 [place] [address] [place] [id number] [place] [address] 40501- 4350 Sep, [facility] [address] [place] [id number] [place] [address] 78033- 6604 Sep, [place] [address] 87822- 0695 Sep, Third trimester Z34.93 ; 34 weeks gestation of Z3A.34 ; Current with history of pre-term labor in third trimester O09.213 and Obesity affecting in third trimester O99.213 [place] [address] [place] [id number] [place] [address] 98304- 2146 Sep, [address] [address]17- [address]80 Sep, [facility] [address] 526[address]48 Aug, Acute maxillary sinusitis, recurrence not specified J01.00 ; Moderate persistent asthma with exacerbation J45.41 and Chest congestion R09.89 [place] [id number] [place] [address] 58082- 0087 Aug, Third trimester Z34.93 ; 32 weeks gestation of Z3A.32 ; Obesity affecting in third trimester O99.213 and BMI 45.0-49.9, adult Z68.42 [place] [address] [place] [id number] [place] [address] 98306- 0760 Aug, [address] 59916- 3556 Aug, 30 weeks gestation of Z3A.30 ; Third trimester Z34.93 ; Nausea/vomiting in O21.9 ; Marijuana use F12.90 ; Obesity affecting in third trimester O99.213 and Encounter for immunization Z23 [address] [place] [address]- 6581 Aug, [place] [address] [address]- 3431 July, [place] [address] [address]- 2460 July, Decreased movements in second trimester, single or unspecified fetus O36.8120 [place] [address] [place] [address] 18748- 6948 July, Decreased movements in second trimester, single or unspecified fetus O36.8120 [place] [address] [place] [address] 73339- 7363 July, [place] [address] [address]- 9092 July, Multigravida in second trimester Z34.82 ; 26 weeks gestation of Z3A.26 ; Moderate persistent asthma with exacerbation J45.41 and Obesity affecting in second trimester O99.212 [place] [address] [address]- 2430 Jun, [place] [address] [place] [address] 20403- 8861 Jun, Multigravida in second trimester Z34.82 ; Normal in multigravida Z34.80 ; 22 weeks gestation of Z3A.22 ; Obesity affecting in second trimester O99.212 ; Herpesviral infection, unspecified B00.9 and Other viral diseases complicating , second trimester O98.512 [place] [address] [place] [id number] [address]- 4[address] Jun, IMMUNIZATIONS No Known Immunizations SOCIAL HISTORY Never Assessed REASON FOR VISIT ob < 14 weeks A.[facility] [facility] RVT PLAN OF CARE VITAL SIGNS MEDICATIONS Unknown Medications RESULTS Name Result Date Reference Range Ultrasound : OB < 14 WEEKS (IN-HOUSE) 2018-05-21 PROCEDURES Procedure Date Ordered Result Body Site OB US < 14 WKS, SINGLE FETUS May 21, 2018 INSTRUCTIONS MEDICATIONS ADMINISTERED No Known Medications MEDICAL (GENERAL) HISTORY Type Description Date Medical History Preeclampsia history Medical History Asthma Medical History HSV 1&2 Medical History Hypertension Surgical History abdomen laparascopy Surgical History intestine surgery as Hospitalization History childbirth Hospitalization History [facility] for 09/2017
--- OUTSIDE RECORDS SUMMARY | 2018-06-14 19:21 | XMS REPORT | Continuity of Care Document ---
Author Author [facility] Organization [facility] Address Unknown Phone Unavailable Allergies Active Description Code Type Severity Reaction Onset Reported/Identified Relationship to Patient Clinical Status Yes No Known Drug Allergies [id number] Drug Allergy Unknown N/A 10/20/2012 Medications There is no data. Problems Date Dx Coded Attending Type Code Diagnosis Diagnosed By 10/20/2012 NELIA SAAB, SHEILA Barraza Ot 305.1 TOBACCO USE DISORDER 10/20/2012 NELIA SAAB, SHEILA Barraza Ot 493.92 ASTHMA, UNSPECIFIED, W (ACUTE) EXACERBAT 10/20/2012 NELIA SAAB, SHEILA Barraza Ot 786.05 SHORTNESS OF BREATH 09/01/2017 BONILLA DO TOÑO K Ot E86.0 DEHYDRATION 09/01/2017 BONILLA [...] Ot Z3A.31 31 WEEKS GESTATION OF 09/18/2017 BETTINA ZAVALA DO Ot F12.90 CANNABIS USE, UNSPECIFIED, UNCOMPLICATED [...] F17.210 NICOTINE DEPENDENCE, CIGARETTES, UNCOMPL 09/19/2017 BARNIDGE DO BETTINA E Ot J44.9 CHRONIC OBSTRUCTIVE PULMONARY DISEASE, U 09/19/2017 EVINNIDGE DO BETTINA E Ot O09.33 SUPRVSN OF [...] J44.9 CHRONIC OBSTRUCTIVE PULMONARY DISEASE, U 09/19/2017 EVINERICHANCABETTINA Goldstein DO Ot O09.33 SUPRVSN OF PREG W INSUFFICIENT ANTENAT C 09/19/2017 EVINERICHANCABETTINA Goldstein DO Ot O60.03 LABOR WITHOUT DELIVERY, THIRD TR 09/19/2017 EVINERICHANCABETTINA Goldstein DO Ot O99.213 OBESITY COMPLICATING , THIRD TR 09/19/2017 JERRYANCABETTINA Goldstein DO Ot O99.323 DRUG USE COMPLICATING , THIRD T 09/19/2017 EVINERICHANCABETTINA Goldstein DO Ot O99.333 SMOKING (TOBACCO) COMPLICATING 09/19/2017 EVINERICHANCABETTINA Goldstein DO Ot O99.513 DISEASES OF THE RESP SYS COMP , 09/19/2017 EVINERICHANCABETTINA Goldstein DO Ot Z3A.33 33 WEEKS GESTATION OF [...] J44.9 CHRONIC OBSTRUCTIVE PULMONARY DISEASE, U 01/26/2018 ARIAN, SHANNAN REMOTE OPERATIONS PRODUCER Ot K21.9 GASTRO-ESOPHAGEAL REFLUX DISEASE WITHOUT 01/26/2018 ARIAN, SHANNAN REMOTE OPERATIONS PRODUCER Ot S05.01XA INJ CONJUNCTIVA AND CORNEAL ABRASION W/O 01/26/2018 ARIAN, SHANNAN REMOTE OPERATIONS PRODUCER Ot X58.XXXA EXPOSURE TO OTHER SPECIFIED FACTORS, INI 01/26/2018 ARIAN SHANNAN REMOTE OPERATIONS PRODUCER Ot Z79.51 PRISON (CURRENT) USE OF INHALED STERO 01/26/2018 ARIAN, SHANNAN REMOTE OPERATIONS PRODUCER Ot Z79.52 PRISON (CURRENT) USE OF SYSTEMIC STER 01/26/2018 ARIAN, SHANNAN REMOTE OPERATIONS PRODUCER Ot Z80.3 FAMILY HISTORY OF MALIGNANT NEOPLASM OF 01/26/2018 ARIAN, SHANNAN REMOTE OPERATIONS PRODUCER Ot Z86.19 PERSONAL HISTORY OF OTHER INFECTIOUS AND 01/26/2018 ARIAN, SHANNAN REMOTE OPERATIONS PRODUCER Ot Z87.19 PERSONAL HISTORY OF OTHER DISEASES OF 01/26/2018 ARIAN, SHANNAN REMOTE OPERATIONS PRODUCER Ot Z87.448 PERSONAL HISTORY OF OTHER DISEASES OF UR 01/28/2018 ARIAN SHANNAN REMOTE OPERATIONS PRODUCER Ot D64.9 ANEMIA, UNSPECIFIED 01/28/2018 ARIAN, SHANNAN REMOTE OPERATIONS PRODUCER Ot F17.210 NICOTINE DEPENDENCE, CIGARETTES, UNCOMPL 01/28/2018 ARIAN SHANNAN REMOTE OPERATIONS PRODUCER Ot F32.9 MAJOR DEPRESSIVE DISORDER, SINGLE EPISOD 01/28/2018 ARIAN, SHANNAN REMOTE OPERATIONS PRODUCER Ot H57.11 OCULAR PAIN, RIGHT EYE 01/28/2018 ARIAN SHANNAN REMOTE OPERATIONS PRODUCER Ot J44.9 CHRONIC OBSTRUCTIVE PULMONARY DISEASE, U 01/28/2018 ARIAN, HSANNAN REMOTE OPERATIONS PRODUCER Ot K21.9 GASTRO-ESOPHAGEAL REFLUX DISEASE WITHOUT 01/28/2018 ARIAN, SHANNAN REMOTE OPERATIONS PRODUCER Ot S05.01XA INJ CONJUNCTIVA AND CORNEAL ABRASION W/O 01/28/2018 ARIAN, SHANNAN REMOTE OPERATIONS PRODUCER Ot X58.XXXA EXPOSURE TO OTHER SPECIFIED FACTORS, INI 01/28/2018 ARIAN SHANNAN REMOTE OPERATIONS PRODUCER Ot Z79.51 PRISON (CURRENT) USE OF INHALED STERO 01/28/2018 ARIAN, SHANNAN REMOTE OPERATIONS PRODUCER Ot Z79.52 PRISON (CURRENT) USE OF SYSTEMIC STER 01/28/2018 ARIAN, SHANNAN REMOTE OPERATIONS PRODUCER Ot Z80.3 FAMILY HISTORY OF MALIGNANT NEOPLASM OF 01/28/2018 ARIAN, SHANNAN REMOTE OPERATIONS PRODUCER Ot Z86.19 PERSONAL HISTORY OF OTHER INFECTIOUS AND 01/28/2018 ARIAN, SHANNAN REMOTE OPERATIONS PRODUCER Ot Z87.19 PERSONAL HISTORY OF OTHER DISEASES OF 01/28/2018 SHANNAN DON Ot Z87.448 PERSONAL HISTORY OF OTHER DISEASES OF UR 04/27/2018 BRETT HASSAN DO Ot D64.9 ANEMIA, UNSPECIFIED 04/27/2018 SONYA BRETT TRONCOSO Ot E66.01 MORBID (SEVERE) OBESITY DUE TO EXCESS CA 04/27/2018 BRETT HASSAN DO Ot F12.10 CANNABIS ABUSE, UNCOMPLICATED 04/27/2018 SONYA BRETT TRONCOSO Ot F17.210 NICOTINE DEPENDENCE, CIGARETTES, UNCOMPL 04/27/2018 SONYA BRETT TRONCOSO Ot F32.9 MAJOR DEPRESSIVE DISORDER, SINGLE EPISOD 04/27/2018 BRETT HASSAN DO Ot J44.9 CHRONIC OBSTRUCTIVE PULMONARY DISEASE, U 04/27/2018 BRETT HASSAN DO Ot K21.9 GASTRO-ESOPHAGEAL REFLUX DISEASE WITHOUT 04/27/2018 BRETT HASSAN DO Ot O20.0 THREATENED 04/27/2018 BRETT HASSAN DO Ot O20.9 HEMORRHAGE IN EARLY , UNSPECIFI 04/27/2018 BRETT HASSAN DO Ot O99.019 ANEMIA COMPLICATING , UNSPECIFI 04/27/2018 STEW HASSAN DOA Ivett Ot O99.210 OBESITY COMPLICATING , UNSPECIF 04/27/2018 [...] SPEC 04/27/2018 BRETT HASSAN DO Ot Z79.51 PRISON (CURRENT) USE OF INHALED STERO 04/27/2018 BRETT [...] Ot F17.210 NICOTINE DEPENDENCE, CIGARETTES, UNCOMPL 04/29/2018 BRETT HASSAN DO Ot F32.9 MAJOR DEPRESSIVE DISORDER, SINGLE EPISOD 04/29/2018 BRETT HASSAN DO Ot J44.9 CHRONIC OBSTRUCTIVE [...] SPEC 04/29/2018 BRETT HASSAN DO Ot Z79.51 FRAUD PREVENTION ANALYST (CURRENT) USE OF INHALED STERO 04/29/2018 BRETT HASSAN DO Ot Z80.3 FAMILY HISTORY OF MALIGNANT NEOPLASM OF 04/29/2018 BRETT HASSAN DO Ot Z86.19 PERSONAL HISTORY OF OTHER INFECTIOUS AND 04/29/2018 BRETT HASSAN DO Ot Z87.19 PERSONAL HISTORY OF OTHER DISEASES OF TH 04/29/2018 BRETT HASSAN DO Ot Z87.440 PERSONAL HISTORY OF URINARY (TRACT) INFE 05/06/2018 JOSE ROACH APRN Ot D64.9 ANEMIA, UNSPECIFIED 05/06/2018 JOSE ROACH APRN Ot E66.01 MORBID (SEVERE) OBESITY DUE TO EXCESS CA 05/06/2018 JOSE ROACH APRN Ot F12.10 CANNABIS ABUSE, UNCOMPLICATED 05/06/2018 JOSE ROACH APRN Ot F17.210 NICOTINE DEPENDENCE, CIGARETTES, UNCOMPL 05/06/2018 JOSE ROACH APRN Ot F32.9 MAJOR DEPRESSIVE DISORDER, SINGLE EPISOD 05/06/2018 JOSE ROACH APRN Ot F41.9 ANXIETY DISORDER, UNSPECIFIED 05/06/2018 JOSE ROACH APRN Ot J44.9 CHRONIC OBSTRUCTIVE PULMONARY DISEASE, U 05/06/2018 JOSE ROACH APRN Ot K21.9 GASTRO-ESOPHAGEAL REFLUX DISEASE WITHOUT 05/06/2018 JOSE ROACH APRN Ot O21.9 VOMITING OF , UNSPECIFIED 05/06/2018 JOSE ROACH APRN Ot O26.891 OTH RELATED CONDITIONS, FIRST 05/06/2018 JOSE ROACH APRN Ot O99.011 ANEMIA COMPLICATING , FIRST TRI 05/06/2018 JOSE ROACH APRN Ot O99.211 OBESITY COMPLICATING , FIRST TR 05/06/2018 JOSE ROACH APRN Ot O99.321 DRUG USE COMPLICATING , FIRST T 05/06/2018 JOSE ROACH APRN Ot O99.331 SMOKING (TOBACCO) COMPLICATING 05/06/2018 JOSE ROACH APRN Ot O99.341 OTH MENTAL DISORDERS COMPLICATING PREGNA 05/06/2018 JOSE ROACH APRN Ot O99.511 DISEASES OF THE RESP SYS COMP , 05/06/2018 JOSE ROACH APRN Ot O99.611 DISEASES OF THE DGSTV SYS COMP 05/06/2018 JOSE ROACH APRN Ot R00.2 PALPITATIONS 05/06/2018 JOSE ROACH APRN Ot Z3A.01 LESS THAN 8 WEEKS GESTATION OF 05/06/2018 JOSE ROACH APRN Ot Z79.51 PRISON (CURRENT) USE OF INHALED STERO 05/06/2018 JOSE ROACH APRN Ot Z79.52 FRAUD PREVENTION ANALYST (CURRENT) USE OF SYSTEMIC STER 05/06/2018 JOSE ROACH APRN Ot Z80.3 FAMILY HISTORY OF MALIGNANT NEOPLASM OF 05/06/2018 JOSE ROACH APRN Ot Z86.19 PERSONAL HISTORY OF OTHER INFECTIOUS AND 05/06/2018 JOSE ROACH APRN Ot Z87.440 PERSONAL HISTORY OF URINARY (TRACT) INFE 05/06/2018 JOSE ROACH APRN Ot Z87.448 PERSONAL HISTORY OF OTHER DISEASES OF UR 05/07/2018 JOSE ROACH APRN Ot D64.9 ANEMIA, UNSPECIFIED 05/07/2018 JOSE ROACH APRN Ot E66.01 MORBID (SEVERE) OBESITY DUE TO EXCESS CA 05/07/2018 JOSE ROACH APRN Ot F12.10 CANNABIS ABUSE, UNCOMPLICATED 05/07/2018 JOSE ROACH APRN Ot F17.210 NICOTINE DEPENDENCE, CIGARETTES, UNCOMPL 05/07/2018 JOSE ROACH APRN Ot F32.9 MAJOR DEPRESSIVE DISORDER, SINGLE EPISOD 05/07/2018 JOSE ROACH APRN Ot F41.9 ANXIETY DISORDER, UNSPECIFIED 05/07/2018 JOSE ROACH APRN Ot J44.9 CHRONIC OBSTRUCTIVE PULMONARY DISEASE, U 05/07/2018 JOSE ROACH APRN Ot K21.9 GASTRO-ESOPHAGEAL REFLUX DISEASE WITHOUT 05/07/2018 JOSE ROACH APRN Ot O21.9 VOMITING OF , UNSPECIFIED 05/07/2018 JOSE ROACH APRN Ot O26.891 OTH RELATED CONDITIONS, FIRST 05/07/2018 JOSE ROACH APRN Ot O99.011 ANEMIA COMPLICATING , FIRST TRI 05/07/2018 JOSE ROACH APRN Ot O99.211 OBESITY COMPLICATING , FIRST TR 05/07/2018 JOSE ROACH APRN Ot O99.321 DRUG USE COMPLICATING , FIRST T 05/07/2018 JOSE ROACH APRN Ot O99.331 SMOKING (TOBACCO) COMPLICATING 05/07/2018 JOSE ROACH APRN Ot O99.341 OTH MENTAL DISORDERS COMPLICATING PREGNA 05/07/2018 JOSE ROACH APRN Ot O99.511 DISEASES OF THE RESP SYS COMP , 05/07/2018 JOSE ROACH APRN Ot O99.611 DISEASES OF THE DGSTV SYS COMP 05/07/2018 JOSE ROACH APRN Ot R00.2 PALPITATIONS 05/07/2018 JOSE ROACH APRN Ot Z3A.01 LESS THAN 8 WEEKS GESTATION OF 05/07/2018 JOSE ROACH APRN Ot Z79.51 PRISON (CURRENT) USE OF INHALED STERO 05/07/2018 JOSE ROACH APRN Ot Z79.52 PRISON (CURRENT) USE OF SYSTEMIC STER 05/07/2018 JOSE ROACH APRN Ot Z80.3 FAMILY HISTORY OF MALIGNANT NEOPLASM OF 05/07/2018 JOSE ROACH APRN Ot Z86.19 PERSONAL HISTORY OF OTHER INFECTIOUS AND 05/07/2018 JOSE ROACH APRN Ot Z87.440 PERSONAL HISTORY OF URINARY (TRACT) INFE 05/07/2018 JOES ROACH APRN Ot Z87.448 PERSONAL HISTORY OF OTHER DISEASES OF UR 06/13/2018 JOSE ROACH APRN Ot D64.9 ANEMIA, UNSPECIFIED 06/13/2018 JOSE ROACH APRN Ot E66.01 MORBID (SEVERE) OBESITY DUE TO EXCESS CA 06/13/2018 JOSE ROACH APRN Ot F12.10 CANNABIS ABUSE, UNCOMPLICATED 06/13/2018 JOSE ROACH APRN Ot F17.210 NICOTINE DEPENDENCE, CIGARETTES, UNCOMPL 06/13/2018 JOSE ROACH APRN Ot F32.9 MAJOR DEPRESSIVE DISORDER, SINGLE EPISOD 06/13/2018 JOSE ROACH APRN Ot F41.9 ANXIETY DISORDER, UNSPECIFIED 06/13/2018 JOSE ROACH APRN Ot J44.9 CHRONIC OBSTRUCTIVE PULMONARY DISEASE, U 06/13/2018 JOSE ROACH APRN Ot K21.9 GASTRO-ESOPHAGEAL REFLUX DISEASE WITHOUT 06/13/2018 JOSE ROACH APRN Ot O21.9 VOMITING OF , UNSPECIFIED 06/13/2018 JOSE ROACH APRN Ot O26.891 OTH RELATED CONDITIONS, FIRST 06/13/2018 JOSE ROACH APRN Ot O99.011 ANEMIA COMPLICATING , FIRST TRI 06/13/2018 JOSE ROACH APRN Ot O99.211 OBESITY COMPLICATING , FIRST TR 06/13/2018 JOSE ROACH APRN Ot O99.321 DRUG USE COMPLICATING , FIRST T 06/13/2018 JOSE ROACH APRN Ot O99.331 SMOKING (TOBACCO) COMPLICATING 06/13/2018 JOSE ROACH APRN Ot O99.341 OTH MENTAL DISORDERS COMPLICATING PREGNA 06/13/2018 JOSE ROACH APRN Ot O99.511 DISEASES OF THE RESP SYS COMP , 06/13/2018 JOSE ROACH APRN Ot O99.611 DISEASES OF THE DGSTV SYS COMP 06/13/2018 JOSE ROACH APRN Ot R00.2 PALPITATIONS 06/13/2018 JOSE ROACH APRN Ot Z3A.01 LESS THAN 8 WEEKS GESTATION OF 06/13/2018 JOSE ROACH APRN Ot Z79.51 PRISON (CURRENT) USE OF INHALED STERO 06/13/2018 JOSE ROACH APRN Ot Z79.52 PRISON (CURRENT) USE OF SYSTEMIC STER 06/13/2018 JOSE ROACH APRN Ot Z80.3 FAMILY HISTORY OF MALIGNANT NEOPLASM OF 06/13/2018 JOSE ROACH APRN Ot Z86.19 PERSONAL HISTORY OF OTHER INFECTIOUS AND 06/13/2018 JOSE ROACH APRN Ot Z87.440 PERSONAL HISTORY OF URINARY (TRACT) INFE 06/13/2018 JOSE ROACH APRN Ot Z87.448 PERSONAL HISTORY OF OTHER DISEASES OF UR Procedures Code Description Performed By Performed On [id number] DELIVERY OF PRODUCTS OF CONCEPTION, EXTE 10/16/2017 [id number] INTRODUCTION OF OTH HORMONE INTO PERIPH 10/16/2017 [...] 9.4 fL 7.5-12.5 ABSOLUTE NEUTROPHILS 6548 cells/uL 9741-4694 ABSOLUTE LYMPHOCYTES 2095 cells/uL 850-3900 ABSOLUTE MONOCYTES [...] ABO+Rh group BP NRG Transfusion band number [id number] NRG Blood group antibody screen NEGATIVE NRG [...] 21:20 Serum or plasma choriogonadotropin measurement (units/volume) 71880 m[iU]/mL <5 Complete blood count (CBC) with automated white blood cell (WBC) differential - 05/02/18 13:10 Blood leukocytes automated count (number/volume) 9.7 10*3/uL 4.3-11.0 Blood erythrocytes automated count (number/volume) 4.82 10*6/uL 4.35-5.85 Venous blood hemoglobin measurement (mass/volume) 12.6 g/dL 11.5-16.0 Blood hematocrit (volume fraction) 41 % 35-52 Automated erythrocyte mean corpuscular volume 85 [foz_us] 80-99 Automated erythrocyte mean corpuscular hemoglobin (mass per erythrocyte) 26 pg 25-34 Automated erythrocyte mean corpuscular hemoglobin concentration measurement ( mass/volume) 31 g/dL 32-36 Automated erythrocyte distribution width ratio 13.8 % 10.0-14.5 Automated blood platelet count (count/volume) 299 10*3/uL 130-400 Automated blood platelet mean volume measurement 9.3 [foz_us] 7.4-10.4 Automated blood neutrophils/100 leukocytes 72 % 42-75 Automated blood lymphocytes/100 leukocytes 17 % 12-44 Blood monocytes/100 leukocytes 8 % 0-12 Automated blood eosinophils/100 leukocytes 3 % 0-10 Automated blood basophils/100 leukocytes 0 % 0-10 Blood neutrophils automated count (number/volume) 6.9 10*3 1.8-7.8 Blood lymphocytes automated count (number/volume) 1.7 10*3 1.0-4.0 Blood monocytes automated count (number/volume) 0.7 10*3 0.0-1.0 Automated eosinophil count 0.3 10*3/uL 0.0-0.3 Automated blood basophil count (count/volume) 0.0 10*3/uL 0.0-0.1 Whole blood basic metabolic panel - 05/02/18 13:10 Serum or plasma sodium measurement (moles/volume) 138 mmol/L 135-145 Serum or plasma potassium measurement (moles/volume) 3.7 mmol/L 3.6-5.0 Serum or plasma chloride measurement (moles/volume) 105 mmol/L 98-107 Carbon dioxide 24 mmol/L 21-32 Serum or plasma anion gap determination (moles/volume) 9 mmol/L 5-14 Serum or plasma urea nitrogen measurement (mass/volume) 7 mg/dL 7-18 Serum or plasma creatinine measurement (mass/volume) 0.78 mg/dL 0.60-1.30 Serum or plasma urea nitrogen/creatinine mass ratio 9 NRG Serum or plasma creatinine measurement with calculation of estimated glomerular filtration rate > NRG Serum or plasma glucose measurement (mass/volume) 94 mg/dL 70-105 Serum or plasma calcium measurement (mass/volume) 9.1 mg/dL 8.5-10.1 THYROID STIMULATING HORMONE - 05/02/18 13:10 THYROID STIMULATING HORMONE 0.34 u[iU]/mL 0.35-4.94 Serum or plasma choriogonadotropin measurement (units/volume) - 05/02/18 13:10 Serum or plasma choriogonadotropin measurement (units/volume) 71275 m[iU]/mL <5 Magnesium - 05/02/18 13:10 Magnesium 1.9 mg/dL 1.8-2.4 Serum or plasma lithium measurement (moles/volume) - 05/02/18 13:10 BNP level 13.8 pg/mL <100.0 Serum or plasma troponin i.cardiac measurement (mass/volume) - 05/02/18 13:10 Serum or plasma troponin i.cardiac measurement (mass/volume) < ng/ mL <0.028 Serum or plasma thyroxine (T4) free measurement (mass/volume) - 05/02/18 13:10 Serum or plasma thyroxine (T4) free measurement (mass/volume) 1.02 ng/dL 0.70-1.48 Urine drug screening test - 05/02/18 14:37 Urine phencyclidine detection by screening method NEGATIVE [...] NEGATIVE NEGATIVE Urine propoxyphene detection NEGATIVE NEGATIVE Encounters ACCT No. Visit Date/Time Discharge Status Pt. Type Provider Facility Loc./Unit Complaint [id number] 05/14/2018 13:04:00 05/14/2018 23:59:59 CLS Outpatient JOSE ROACH APRN [facility] CARD PALPITATIONS,CHEST PAIN [id number] 05/13/2018 16:05:00 05/13/2018 23:59:59 CLS Preadmit BRINA CM MD [facility] CARD HEART PALPITATIONS [id number] 05/02/2018 12:55:00 05/02/2018 17:04:00 DIS Outpatient JOSE ROACH APRN [facility] ER CHEST PAIN [id number] 04/27/2018 19:41:00 04/27/2018 22:08:00 DIS Emergency SONYA TRONCOSO BRETT Ivett [facility] ER ABD CRAMPING AND BLEEDING [id number] 01/26/2018 16:18:00 01/26/2018 17:59:00 DIS Emergency SHANNAN DONP [facility] ER SPIDER IN R EYE [id number] 09/18/2017 11:08:00 09/18/2017 17:00:00 DIS Outpatient SALLY TRONCOSO BETTINA E [facility] WSo DECREASED MOVEMENT/LOWER BACK PAIN/MUCUS DIS [id number] 09/01/2017 11:38:00 09/01/2017 17:45:00 DIS Outpatient CHAD TRONCOSO TOÑO Ivett [facility] WSo VOMITING/HEADACHE [id number] 08/28/2017 08:57:00 08/28/2017 23:59:59 CLS Preadmit BRINA CM MD [facility] RAD 30 WEEKS GESTATION OF [id number] 10/20/2012 20:25:00 10/20/2012 21:35:00 DIS Emergency SHEILA PICKENS MD [facility] ER SOB [id number] 10/17/2017 09:00:00 Document Registration [id number] 06/10/2018 10:40:00 06/10/2018 23:59:59 CLS Outpatient BRINA CM [facility] [id number] 01/08/2018 14:40:00 Document Registration [id number] 10/01/2017 13:20:00 Document Registration [id number] 07/31/2017 09:00:00 Document Registration
[2018-06-14] MEDS ORDERED: methylPREDNISolone 125 MG (Solu-MEDROL) VIAL IV STA (19:41)
[2018-06-14] MEDS ORDERED: RT-ALBUTEROL SULF 2.5 MG/3 ML PRE-MIX VIAL INH STA ×2 (19:41→22:43)
[2018-06-14] MEDS ORDERED: DEXAMETHASONE 4 MG/ML SDV (DECADRON) IH ONE ×2 (19:45→22:45)
[2018-06-14] MEDS ORDERED: RT-ALBUTEROL/IPRATROPIUM 3 ML (DUONEB) VIAL INH ONE ×2 (19:45→22:45)
[2018-06-14 19:52] LABS: BASOPHILS % (AUTO) 0 % (0-10); EOSINOPHILS # (AUTO) 0.6 10^3/uL (0.0-0.3); EOSINOPHILS % (AUTO) 7 % (0-10); HEMATOCRIT 40 % (35-52); HEMOGLOBIN 12.7 G/DL (11.5-16.0); LYMPHOCYTES # (AUTO) 2.2 X 10^3 (1.0-4.0); LYMPHOCYTES % (AUTO) 24 % (12-44); MEAN CORPUSCULAR HEMOGLOBIN 26 PG (25-34); MEAN CORPUSCULAR HGB CONC 32 G/DL (32-36); MEAN CORPUSCULAR VOLUME 83 FL (80-99); MEAN PLATELET VOLUME 8.9 FL (7.4-10.4); MONOCYTES # (AUTO) 0.7 X 10^3 (0.0-1.0); MONOCYTES % (AUTO) 8 % (0-12); NEUTROPHILS # (AUTO) 5.7 X 10^3 (1.8-7.8); NEUTROPHILS % (AUTO) 62 % (42-75); PLATELET COUNT 337 10^3/uL (130-400); RED CELL DISTRIBUTION WIDTH 13.5 % (10.0-14.5); WHITE BLOOD COUNT 9.3 10^3/uL (4.3-11.0)
[2018-06-14 19:59] LABS: BILIRUBIN,URINE NEGATIVE (NEGATIVE); CLARITY,URINE CLEAR; COLOR,URINE YELLOW; GLUCOSE, URINE (UA) NEGATIVE (NEGATIVE); KETONES,URINE NEGATIVE (NEGATIVE); LEUKOCYTE ESTERASE ,URINE 1+ (NEGATIVE); NITRITE,URINE NEGATIVE (NEGATIVE); PH,URINE 5 (5-9); PROTEIN,URINE 1+ (NEGATIVE); UROBILINOGEN,URINE NORMAL (NORMAL)
[2018-06-14 20:01] LABS: INR 0.9 (0.8-1.4); PROTHROMBIN TIME PATIENT 12.8 SEC (12.2-14.7)
[2018-06-14 20:06] LABS: BACTERIA,URINE TRACE /HPF; RBC,URINE 0-2 /HPF; WBC,URINE RARE /HPF
--- NOTE | 2018-06-14 20:13 | Diagnostic Imaging Report ---
INDICATION: Chest discomfort, short of air. EXAMINATION: A single view of the chest was obtained. FINDINGS: Normal heart size and vascularity. The lungs are clear. There is no effusion or pneumothorax. There is no bony abnormality. IMPRESSION: Normal chest. Dictated by: Dictated on workstation # [id number]
[2018-06-14 20:14] LABS: ALANINE AMINOTRANSFERASE 14 U/L (0-55); ALBUMIN 3.6 GM/DL (3.2-4.5); ALKALINE PHOSPHATASE 68 U/L (40-136); BILIRUBIN,TOTAL 0.2 MG/DL (0.1-1.0); BUN/CREATININE RATIO 9; CALCIUM 9.9 MG/DL (8.5-10.1); CARBON DIOXIDE 20 MMOL/L (21-32); CHLORIDE 106 MMOL/L (98-107); CREATININE SERUM 0.85 MG/DL (0.60-1.30); GFR ESTIMATED > 60; GLUCOSE 85 MG/DL (70-105); MAGNESIUM 1.6 MG/DL (1.8-2.4); POTASSIUM 3.7 MMOL/L (3.6-5.0); SODIUM 137 MMOL/L (135-145)
--- NOTE | 2018-06-14 21:00 | NUR ---
WILL CONTINUE TO MONITOR PT IN ED NO ROOMS AVAILABLE IN HOUSE.
[2018-06-14] MEDS: MAGNESIUM 1 GM/100 ML IVPB 100 ML IV SCH ×2 (21:10→22:16)
[2018-06-14] MEDS ORDERED: cefTRIAXone FOR IV USE 1,000 MG in WATER (STERILE) FOR INJECTION 10 ML IV ONE (21:30)
--- NOTE | 2018-06-14 22:00 | NUR ---
PT RESTING IN BED, WATCHING TV. DENIES SOA, PAIN, OR DISCOMFORT. NO RESPIRATORY DISTRESS NOTED. VSS. WILL CONTINUE TO MONITOR.
[2018-06-14] MEDS ORDERED: methylPREDNISolone 125 MG (Solu-MEDROL) VIAL IVP ONE (22:45)
--- NOTE | 2018-06-15 | NUR ---
PT RESTING QUIETLY IN BED. NO RESPIRATORY DISTRESS NOTED. VSS. WILL CONTINUE TO MONITOR.
--- NOTE | 2018-06-15 01:27 | ED Respiratory ---
General Chief Complaint: Respiratory Problems Stated Complaint: CP AND SOB X 3 DAYS Nursing Triage Note: PT AMB TO TRIAGE WITH COMPLAINT OF SOB, CP FOR THREE DAYS. STATES SYMPTOMS HAVE BEEN GOING ON FOR THREE DAYS. STATES THAT SHE HAS BEEN USING HER ALBUTEROL INHALER WITH NO RELIEF. Source: patient History of Present Illness Date Seen by Provider: Jun 14, 2018 Time Seen by Provider: 19:32 Initial Comments PT ARRIVES VIA POV FROM HOME--DROVE SELF HERE, WITH HER MOTHER AND 2 SMALL CHILDREN WITH HER C/O SHORTNESS OF BREATH FOR THE PAST 3 DAYS ALSO C/O CHEST DISCOMFORT--RELATED TO DIFFICULTY BREATHING-RADIATES TO BACK, WITH BREATHING C/O SLIGHT COUGH, NON PRODUCTIVE NO SWELLING TO LEGS/ FEET OR PAIN IN CALVES NO FEVER PT HAS HISTORY OF ASTHMA AND HAS BEEN USING HER ALBUTEROL INHALER ( DOES NOT HAVE SPACER) AND ALSO ALBUTEROL NEBULIZER--STATES "TOO MANY TIMES"--STATES SHE HAS BEEN USING BOTH OF THEM EVERY 30 MINUTES, AND TAKING AT LEAST 3 PUFFS ON INHALER EACH TIME, ALL DAY TODAY HAS NOT SOUGHT CARE FOR THIS UNTIL MELISSA PT IS 13 W[address] CM ON SATURDAY FOR ROUTINE OB VISIT PT STATES SHE HAS PRESCRIBED ADVAIR FOR THIS BUT PT DID NOT FILL RX. 7 MONTH OLD CHILD ALSO HAS COLD SYMPTOMS--COUGH/CONGESTION PCP: DR. CM Allergies and Home Medications Allergies Coded Allergies: No Known Drug Allergies (Unverified , 10/20/12) Home Medications Acyclovir 400 Mg Tablet, 400 MG PO BID, (Reported) Albuterol 8.5 Gm Hfa.aer.ad, 8.5 GM IH Q2, (Reported) 2 PUFFS Beclomethasone Dipropionate 8.7 Gm Aer.w.adap, 8.7 GM IH BID Prescribed by: BETTINA ZAVALA on 09/18/17 1540 Budesonide 1 Mg/2 Ml Ampul.neb, 1 MG IH BID Prescribed by: BRETT HASSAN on 06/15/18 0150 Cefdinir 300 Mg Capsule, 300 MG PO BID Prescribed by: BRETT HASSAN on 06/15/18 0150 Ferrous Sulfate 325 Mg Tablet, 325 MG PO DAILY Prescribed by: BRINA CM on 10/18/17 0948 Ibuprofen 600 Mg Tablet, 600 MG PO Q6H Prescribed by: BRINA CM on 10/18/17 0948 Ipratropium/Albuterol Sulfate 3 Ml Ampul.neb, 3 ML IH Q6H PRN for SHORTNESS OF BREATH Prescribed by: BETTINA ZAVALA on 09/18/17 1540 Methylprednisolone 4 Mg Tab.ds.pk, 4 MG PO UD Prescribed by: BRETT HASSAN on 06/15/18 0150 Metronidazole 500 Mg Tablet, 500 MG PO BID, (Reported) Pnv No.122/Iron/Folic Acid 1 Each Tablet, 1 EACH PO DAILY Prescribed by: BRETT HASSAN on 04/27/18 2151 Promethazine HCl 25 Mg Tablet, 25 MG PO Q6H PRN for NAUSEA/VOMITING Prescribed by: JOSE ROACH on 05/02/18 1659 Patient Home Medication List Home Medication List Reviewed: Yes Review of Systems Review of Systems Constitutional: No chills, No diaphoresis, No fever EENTM: nose congestion Respiratory: see HPI, cough, dyspnea on exertion, orthopnea; No phlegm; short of breath, wheezing Cardiovascular: see HPI, chest pain; No edema; palpitations (AT TIMES, ONGOING PROBLEM AND HAS HAD HOLTER MONITOR RECENTLY BUT DOES NOT KNOW RESULTS); No syncope Gastrointestinal: no symptoms reported Genitourinary: no symptoms reported (NO ABDOMINAL OR PELVIC PAIN/CRAMPING, NO VAGINAL BLEEDING OR DISCHARGE) : Yes (PT IS 13 WEEKS , ALSO HAS A 7 MONTH OLD AT HOME AND A TODDLER. NOT . ) Musculoskeletal: no symptoms reported Skin: no symptoms reported Psychiatric/Neurological: No Symptoms Reported Hematologic/Lymphatic: No Symptoms Reported Immunological/Allergic: no symptoms reported Past Efvtzcd-Lqsuba-Wuwavh Hx Patient Social History Alcohol Use: Denies Use Recreational Drug Use: Yes (THC) Drug of Choice: MARIJUANA Smoking Status: Current Everyday Smoker (1 PPD) Type Used: Cigarettes (1 PPD) 2nd Hand Smoke Exposure: Yes Recent Foreign Travel: No Contact w/Someone Who Travel: No Recent Infectious Disease Expo: No Recent Hopitalizations: No Immunizations Up To Date Tetanus Booster (TDap): Less than 5yrs PED Vaccines UTD: Yes Seasonal Allergies Seasonal Allergies: Yes Past Medical History Surgeries: Yes (wisdom teeth,surgery on intestines as an infant) Abdominal Respiratory: Yes Asthma, COPD Currently Using CPAP: No Currently Using BIPAP: No Cardiac: Yes (HTN--DOES NOT TAKE MEDICATIONS) Hypertension Neurological: No : Yes 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 Disorders: No 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, Ovarian Cyst Sexually Transmitted Disease: Yes (HERPES) HIV/AIDS: No Genitourinary: Yes UTI-Chronic Gastrointestinal: Yes Gastroesophageal Reflux, Hemorrhoids Musculoskeletal: No Endocrine: Yes (MORBID OBESITY) HEENT: No Loss of Vision: Denies Hearing Impairment: Denies Cancer: No Psychosocial: Yes Depression Integumentary: Yes Herpes Blood Disorders: Yes (ANEMIA) Adverse Reaction/Blood Tranf: No Family Medical History Asthma 19 FATHER G8 BROTHER Completed stroke MATERNAL GRANDFATHER Diabetes mellitus 19 FATHER 19 MOTHER Drug abuse 19 FATHER G8 BROTHER G8 BROTHER G8 BROTHER FH: breast cancer MATERNAL GRANDMOTHE ( AGE 71) Headache disorder G8 SISTER Hypertension 19 MOTHER G8 BROTHER Psychosocial problem G8 BROTHER Seizure disorder MATERNAL GRANDMOTHE Physical Exam Vital Signs - First Documented 06/14/18 06/14/18 19:23 19:48 Pulse 78 Resp 20 B/P (MAP) 141/88 (105) Pulse Ox 97 O2 Delivery Room Air O2 Flow Rate 2.00 Capillary Refill : Less Than 3 Seconds Height: 5'11.00" Weight: 362lbs. 0.8oz. [id number]; 47.9 BMI Method:Stated General Appearance: mild distress (AUDIBLE WHEEZING FROM DOORWAY, MILD TO MODERATE DYSPNEA, BUT TALKS NON-STOP AT LENGTH IN FULL SENTENCES, WITH O2 SAT 100%. INCREASED DSYPNEA WITH MINIMAL AMBULATION AND WITH LAYING FLAT. ( PT STATES IS NORMAL FOR HER) ), obese (MORBIDLY OBESE) HEENT: PERRL/EOMI Neck: normal inspection Respiratory: respiratory distress (MILD), accessory muscle use, wheezing, other (AUDIBLE WHEEZING FROM DOORWAY. ) Cardiovascular: regular rate, rhythm, no murmur Gastrointestinal: non tender, soft Extremities: normal inspection, no pedal edema, no calf tenderness, normal capillary refill Neurologic/Psychiatric: closing agent II-XII nml as tested, no motor/sensory deficits, alert, normal mood/affect, oriented x 3 Skin: normal color, warm/dry Progress/Results/Core Measures Suspected Sepsis Recent Fever Within 48 Hours: No Infection Criteria Present: None New/Unexplained Altered Menta: No Sepsis Screen: No Definite Risk SIRS Temperature: Pulse: 78 Respiratory Rate: 20 Laboratory Tests 06/14/18 19:43: White Blood Count 9.3 Blood Pressure 141 /88 Mean: 105 Laboratory Tests 06/14/18 19:43: Creatinine 0.85, INR Comment 0.9, Platelet Count 337, Total Bilirubin 0.2 Results/Orders Lab Results Laboratory Tests Test 06/14/18 19:43 06/14/18 19:54 06/15/18 01:48 Range/Units White Blood Count 9.3 4.3-11.0 10^3/uL Red Blood Count 4.83 4.35-5.85 10^6/uL Hemoglobin 12.7 11.5-16.0 G/DL Hematocrit 40 35-52 % Mean Corpuscular Volume 83 80-99 FL Mean Corpuscular Hemoglobin 26 25-34 PG Mean Corpuscular Hemoglobin Concent 32 32-36 G/DL Red Cell Distribution Width 13.5 10.0-14.5 % Platelet Count 337 130-400 10^3/uL Mean Platelet Volume 8.9 7.4-10.4 FL Neutrophils (%) (Auto) 62 42-75 % Lymphocytes (%) (Auto) 24 12-44 % Monocytes (%) (Auto) 8 0-12 % Eosinophils (%) (Auto) 7 0-10 % Basophils (%) (Auto) 0 0-10 % Neutrophils # (Auto) 5.7 1.8-7.8 X 10^3 Lymphocytes # (Auto) 2.2 1.0-4.0 X 10^3 Monocytes # (Auto) 0.7 0.0-1.0 X 10^3 Eosinophils # (Auto) 0.6 H 0.0-0.3 10^3/uL Basophils # (Auto) 0.0 0.0-0.1 10^3/uL Prothrombin Time 12.8 12.2-14.7 SEC INR Comment 0.9 0.8-1.4 Activated Partial Thromboplast Time 33 24-35 SEC Sodium Level 137 135-145 MMOL/L Potassium Level 3.7 3.6-5.0 MMOL/L Chloride Level 106 98-107 MMOL/L Carbon Dioxide Level 20 L 21-32 MMOL/L Anion Gap 11 5-14 MMOL/L Blood Urea Nitrogen 8 7-18 MG/DL Creatinine 0.85 0.60-1.30 MG/DL Estimat Glomerular Filtration Rate > 60 BUN/Creatinine Ratio 9 Glucose Level 85 70-105 MG/DL Calcium Level 9.9 8.5-10.1 MG/DL Corrected Calcium 10.2 H 8.5-10.1 MG/DL Magnesium Level 1.6 L 1.8-2.4 MG/DL Total Bilirubin 0.2 0.1-1.0 MG/DL Aspartate Amino Transf (AST/SGOT) 15 5-34 U/L Alanine Aminotransferase (ALT/SGPT) 14 0-55 U/L Alkaline Phosphatase 68 40-136 U/L B-Type Natriuretic Peptide 13.4 <100.0 PG/ML Total Protein 7.0 6.4-8.2 GM/DL Albumin 3.6 3.2-4.5 GM/DL Urine Color YELLOW Urine Clarity CLEAR Urine pH 5 5-9 Urine Specific [place] 1.025 H 1.016-1.022 Urine Protein 1+ H NEGATIVE Urine Glucose (UA) NEGATIVE NEGATIVE Urine Ketones NEGATIVE NEGATIVE Urine Nitrite NEGATIVE NEGATIVE Urine Bilirubin NEGATIVE NEGATIVE Urine Urobilinogen NORMAL NORMAL MG/DL Urine Leukocyte Esterase 1+ H NEGATIVE Urine RBC (Auto) 4+ H NEGATIVE Urine RBC 0-2 /HPF Urine WBC RARE /HPF Urine Squamous Epithelial Cells 2-5 /HPF Urine Crystals NONE /LPF Urine Bacteria TRACE /HPF Urine Casts NONE /LPF Urine Mucus SMALL H /LPF Urine Culture Indicated NO Urine Opiates Screen NEGATIVE NEGATIVE Urine Oxycodone Screen NEGATIVE NEGATIVE Urine Methadone Screen NEGATIVE NEGATIVE Urine Propoxyphene Screen NEGATIVE NEGATIVE Urine Barbiturates Screen NEGATIVE NEGATIVE Ur Tricyclic Antidepressants Screen NEGATIVE NEGATIVE Urine Phencyclidine Screen NEGATIVE NEGATIVE Urine Amphetamines Screen NEGATIVE NEGATIVE Urine Methamphetamines Screen NEGATIVE NEGATIVE Urine Benzodiazepines Screen NEGATIVE NEGATIVE Urine Cocaine Screen NEGATIVE NEGATIVE Urine Cannabinoids Screen POSITIVE H NEGATIVE Micro Results Microbiology 06/14/18 Influenza Types A,B Antigen (LEONARD) - Final, Complete My Orders Orders - BRETT HASSAN DO BNP (06/14/18 19:32) Cbc With Automated Diff (06/14/18 19:32) Comprehensive Metabolic Panel (06/14/18 19:32) Magnesium (06/14/18 19:32) Protime With Inr (06/14/18 19:32) Partial Thromboplastin Time (06/14/18 19:32) Ua Culture If Indicated (06/14/18 19:32) Blood Culture (06/14/18 19:32) Influenza A And B Antigens (06/14/18 19:32) Albuterol/Ipra Inhalation Soln (Duoneb I (06/14/18 19:45) Rt Request For Service (06/14/18 19:32) Saline Lock/Iv-Start (06/14/18 19:32) Ekg Tracing (06/14/18 19:32) Heart Tones (06/14/18 19:32) Monitor-Rhythm Ecg Trace Only (06/14/18 19:32) Svn Small Volume Nebulizer (06/14/18 19:32) Albuterol Pre-Mix Nebs (Rt) (Proventil (06/14/18 19:41) Dexamethasone Injection (Decadron Inject (06/14/18 19:45) Methylprednisolone Sod Succ (Solu-Medrol (06/14/18 19:41) Chest 1 View, Ap/Pa Only (06/14/18 19:41) Svn Small Volume Nebulizer (06/14/18 19:41) Sputum Culture (06/14/18 20:05) Magnesium 1 Gm/100 Ml Ivpb (Magnesium Decker (06/14/18 20:30) Ceftriaxone For Iv Use (Rocephin For I (06/14/18 21:30) Methylprednisolone Sod Succ (Solu-Medrol (06/14/18 22:45) Albuterol Pre-Mix Nebs (Rt) (Proventil (06/14/18 22:43) Albuterol/Ipra Inhalation Soln (Duoneb I (06/14/18 22:45) Dexamethasone Injection (Decadron Inject (06/14/18 22:45) Svn Small Volume Nebulizer (06/14/18 22:43) Svn Small Volume Nebulizer (06/14/18 22:43) Drug Screen Stat (Urine) (06/15/18 01:25) Medications Given in ED Current Medications Medications Dose Ordered Sig/Violette Route Start Time Stop Time Status Last Admin Dose Admin Albuterol/ Ipratropium 3 ml ONCE ONCE INH 06/14/18 19:45 06/14/18 19:46 DC 06/14/18 19:49 3 ML Ceftriaxone Sodium 1000 mg/ Sterile Water 10 ml @ 200 mls/hr ONCE ONCE IV 06/14/18 21:30 06/14/18 21:32 DC 06/14/18 22:55 200 MLS/HR Dexamethasone Sodium Phosphate 30 mg ONCE ONCE IH 06/14/18 19:45 06/14/18 19:46 DC 06/14/18 19:49 30 MG Dexamethasone Sodium Phosphate 30 mg ONCE ONCE IH 06/14/18 22:45 06/14/18 22:46 DC 06/14/18 23:06 30 MG Methylprednisolone Sodium Succinate 125 mg ONCE ONCE IVP 06/14/18 22:45 06/14/18 22:46 DC 06/14/18 22:55 125 MG Vital Signs/I&O 06/14/18 06/14/18 06/14/18 19:23 19:48 23:07 Pulse 78 Resp 20 B/P (MAP) 141/88 (105) Pulse Ox 97 99 99 O2 Delivery Room Air Nasal Cannula Room Air O2 Flow Rate 2.00 06/15/18 00:00 Intake Total 210 ml Balance 210 ml Capillary Refill : Less Than 3 Seconds Blood Pressure Mean: 105 Progress Note : Progress Note NO DETERIORATION IN PT'S CONDITION DURING ER STAY O2 SATS REMAINED 99-100% ON ROOM AIR AFTER 2ND HOUR LONG NEB TREATMENT, 2ND DOSE OF SOLU-MEDROL AND 2 GRAMS OF MAGNESIUM, PT FEELS MUCH BETTER AND LUNGS ARE COMPLETELY CLEAR WITHOUT ANY RESIDUAL WHEEZING AND PT HAS INCREASED AERATION IN ALL LUNG MCKNIGHT PT SLEPT FOR REMAINDER OF ER STAY PT OBSERVED IN ER FOR >7 HOURS VITALS STABLE RT STAFF DID SPACER TEACHING AND SPACER WAS GIVEN TO PT RT STAFF ALSO DISCUSSED NEED FOR ACTION PLAN AND SEEKING TREATMENT EARLY WILL ALSO REFER TO DR. WORKMAN, SHE STATES SHE HAS NEVER SEEN A CNA INSTRUCTOR ECG Initial ECG Impression Date: Jun 14, 2018 Initial ECG Impression Time: 19:41 Initial ECG Rate: 78 Initial ECG Rhythm: Normal Sinus Diagnostic Imaging Comments CXR--NO ACUTE PROCESS, PER RADIOLOGIST REPORT @ 2019 Reviewed: Reviewed by Me Departure Communication (Admissions) 2041--SPOKE WITH DR. NAJERA, SCRAP DROP OPERATOR FOR OB. THERE ARE NO REGULAR MEDICAL OR ICU BEDS AVAILABLE AT THIS TIME, SHE WOULD BE WILLING TO ADMIT PT TO [facility], IF THAT IS POSSIBILITY 2054--SPOKE WITH CREPE SOLE SCOURER--UNABLE TO ADMIT TO [facility] AT THIS TIME DUE TO HIGH VOLUME OF OB PT'S AND DELIVERIES AT THIS TIME. WILL HOLD PT IN ER AND GIVE CONTINUOUS NEB TREATMENTS, STEROIDS AND MAGNESIUM WILL TRANSFER IF PT'S CONDITION WORSENS Impression Primary Impression: Asthma with acute exacerbation Additional Impressions: 12 weeks gestation of Morbid obesity Hypomagnesemia Illicit drug use Marijuana use Cigarette smoker Disposition: 01 HOME, SELF-CARE Condition: Improved Departure-Patient Inst. Referrals: MAI WORKMAN HOLLY R MD (PCP/Family) Primary Care Physician Patient Instructions: Alcohol and Drug Use in , Asthma Action Plan, Asthma and , Asthma, Adult (DC), Avoiding Asthma Triggers, Smoking in , Smoking: Not Just Harmful to Your Lungs and Heart Add. Discharge Instructions: USE YOUR INHALER WITH SPACER AT ALL TIMES--DO NOT USE ALBUTEROL MORE THAN EVERY 4 HOURS ( THIS INCLUDES INHALER AND/OR NEBULIZER) TYLENOL NEEDED FOR PAIN NO SMOKING CIGARETTES OR MARIJUANA FOLLOW UP WITH DR. WORKMAN IN 2-3 DAYS FOR FURTHER CARE FOLLOW UP WITH DANAE IN 2-3 DAYS FOR FURTHER CARE RETURN TO ER IF WORSE All discharge instructions reviewed with patient and/or family. Voiced understanding. Scripts Cefdinir (Cefdinir) 300 Mg Capsule 300 MG PO BID for FOR INFECTION, #20 CAP Prov: BRETT HASSAN DO 06/15/18 Methylprednisolone (Medrol) 4 Mg Tab.ds.pk 4 MG PO UD, #1 PKG Prov: BRETT HASSAN DO 06/15/18 Budesonide (Pulmicort) 1 Mg/2 Ml Ampul.neb 1 MG IH BID, #1 UNIT Prov: BRETT HASSAN DO 06/15/18 BRETT HASSAN DO Jun 15, 2018 01:27
[2018-06-15] MEDS ORDERED: CEFD300C3 PO (01:50)
[2018-06-15] MEDS ORDERED: METH4TAB PO (01:50)
[2018-06-15] MEDS ORDERED: BUDE1AMP IH (01:50)
[2018-06-15 02:00] LABS: AMPHETAMINE SCREEN, URINE NEGATIVE (NEGATIVE); BARBITURATE SCREEN URINE NEGATIVE (NEGATIVE); BENZODIAZEPINES SCREEN URINE NEGATIVE (NEGATIVE); CANNABINOID SCREEN, URINE POSITIVE (NEGATIVE); COCAINE SCREEN URINE NEGATIVE (NEGATIVE); METHADONE STAT NEGATIVE (NEGATIVE); METHAMPHETAMINE SCREEN URINE S NEGATIVE (NEGATIVE); OPIATE SCREEN URINE NEGATIVE (NEGATIVE); OXYCODONE STAT NEGATIVE (NEGATIVE); PROPOXYPHENE STAT NEGATIVE (NEGATIVE); TRICYCLIC ANTIDEPRESSANTS SCRE NEGATIVE (NEGATIVE)
--- NOTE | 2018-06-15 02:00 | NUR ---
PT RESTING QUIETLY IN BED WITH EYES CLOSED. NO RESPIRATORY DISTRESS NOTED. VSS. WILL CONTINUE TO MONITOR.
[2018-06-15 02:18] VITALS: BP 145/108
== END 2018-06-15 02:20 | disposition home or self-care (01) ==
LOC: EDUNIT# 19:01 → ER 19:02
DX: O99.511 Diseases of the respiratory system complicating pregnancy, first trimester (principal); J45.901 Unspecified asthma with (acute) exacerbation; J44.9 Chronic obstructive pulmonary disease, unspecified; O99.281 Endocrine, nutritional and metabolic diseases complicating pregnancy, first trimester; E83.42 Hypomagnesemia; O99.331 Smoking (tobacco) complicating pregnancy, first trimester; F17.210 Nicotine dependence, cigarettes, uncomplicated; O16.1 Unspecified maternal hypertension, first trimester; O99.321 Drug use complicating pregnancy, first trimester; F12.10 Cannabis abuse, uncomplicated; F19.10 Other psychoactive substance abuse, uncomplicated; O99.611 Diseases of the digestive system complicating pregnancy, first trimester; K21.9 Gastro-esophageal reflux disease without esophagitis; O99.341 Other mental disorders complicating pregnancy, first trimester; F32.9 Major depressive disorder, single episode, unspecified; O99.011 Anemia complicating pregnancy, first trimester; D64.9 Anemia, unspecified; O99.211 Obesity complicating pregnancy, first trimester; E66.01 Morbid (severe) obesity due to excess calories; Z87.19 Personal history of other diseases of the digestive system; Z98.890 Other specified postprocedural states; Z3A.12 12 weeks gestation of pregnancy; Z80.3 Family history of malignant neoplasm of breast; Z87.440 Personal history of urinary (tract) infections; Z86.19 Personal history of other infectious and parasitic diseases; Z79.52 Long term (current) use of systemic steroids
CPT/HCPCS: 36415; 71045; 80053; 80306; 81000; 83735; 83880; 85025; 85610; 85730; 87070; 87205; 87804; 93005; 93041; 94640; 96365; 96366; 96375; 96376

== ENCOUNTER 2018-06-21 21:04 | Outpatient (CLI) | payer MEDICAID ==
[~2018-06-21 21:04] MED LIST changes: +BUDE1AMP IH; +CEFD300C3 PO; +METH4TAB PO
== END 2018-06-22 06:25 | disposition home or self-care (01) ==
LOC: SLEEP 21:04
PROVIDERS: ATTEND Nurse Practitioner Family
DX: G47.10 Hypersomnia, unspecified (principal); R06.00 Dyspnea, unspecified; J45.998 Other asthma; R06.89 Other abnormalities of breathing; R05 Cough; Z72.0 Tobacco use
CPT/HCPCS: 95810

== ENCOUNTER 2018-12-10 06:56 | Inpatient (IN) | payer MEDICAID ==
[2018-12-10] VITALS (45 sets, daily range): BP systolic 117–174; BP diastolic 56–102
[~2018-12-10] VITALS: Ht 180 cm; Wt 184.6 kg
--- NOTE | 2018-12-10 07:00 | NUR ---
JUDY DEVLIN presented to unit via ambulation from ED for scheduled IOL. Pt. weighed, gowned, voided, and to bed. EFHM and TOCO applied, VS taken. Pt. oriented to bed controls, call light, TV, heat, and A/C controls.
--- NOTE | 2018-12-10 07:37 | NUR ---
was called r/t admission of IOL. orders received.
[2018-12-10] MEDS ORDERED: AMPICILLIN FOR IV USE 2,000 MG in WATER (STERILE) FOR INJECTION 14.8 ML IV SCH (07:41)
[2018-12-10] MEDS ORDERED: OXYTOCIN/NORMAL SALINE 500 ML IV SCH ×2 (07:41→16:51)
[2018-12-10] MEDS ORDERED: D5 LR IV SOLUTION 1,000 ML IV SCH (07:41)
[2018-12-10] MEDS ORDERED: AMPICILLIN FOR IV USE 2,000 MG VIAL ONE ×2 (07:45)
[2018-12-10] MEDS ORDERED: D5 LR IV SOLUTION 1,000 ML IV ONE (07:45)
[2018-12-10] MEDS ORDERED: WATER (STERILE) FOR INJECTION 20 ML ONE (07:45)
[2018-12-10 08:54] LABS: BILIRUBIN,URINE NEGATIVE (NEGATIVE); CLARITY,URINE CLEAR; COLOR,URINE YELLOW; GLUCOSE, URINE (UA) NEGATIVE (NEGATIVE); KETONES,URINE NEGATIVE (NEGATIVE); LEUKOCYTE ESTERASE ,URINE NEGATIVE (NEGATIVE); NITRITE,URINE NEGATIVE (NEGATIVE); PH,URINE 6 (5-9); PROTEIN,URINE NEGATIVE (NEGATIVE); UROBILINOGEN,URINE NORMAL (NORMAL)
[2018-12-10 09:01] LABS: BACTERIA,URINE TRACE /HPF
--- NOTE | 2018-12-10 09:04 | NUR ---
was called. pt requesting solid foods to eat. clear liquid diet order received. POC reviewed with pt.
[2018-12-10 09:21] LABS: BASOPHILS % (AUTO) 0 % (0-10); EOSINOPHILS # (AUTO) 0.4 10^3/uL (0.0-0.3); EOSINOPHILS % (AUTO) 5 % (0-10); HEMATOCRIT 34 % (35-52); HEMOGLOBIN 10.5 G/DL (11.5-16.0); LYMPHOCYTES # (AUTO) 1.3 X 10^3 (1.0-4.0); LYMPHOCYTES % (AUTO) 14 % (12-44); MEAN CORPUSCULAR HEMOGLOBIN 26 PG (25-34); MEAN CORPUSCULAR HGB CONC 31 G/DL (32-36); MEAN CORPUSCULAR VOLUME 83 FL (80-99); MEAN PLATELET VOLUME 9.2 FL (7.4-10.4); MONOCYTES # (AUTO) 0.7 X 10^3 (0.0-1.0); MONOCYTES % (AUTO) 7 % (0-12); NEUTROPHILS # (AUTO) 6.8 X 10^3 (1.8-7.8); NEUTROPHILS % (AUTO) 75 % (42-75); PLATELET COUNT 293 10^3/uL (130-400); RED CELL DISTRIBUTION WIDTH 14.4 % (10.0-14.5); WHITE BLOOD COUNT 9.2 10^3/uL (4.3-11.0)
--- NOTE | 2018-12-10 10:00 | NUR ---
pt requesting breathing tx. audible wheezes noted. was notified of pt's request. order received.
--- NOTE | 2018-12-10 10:19 | NUR ---
RT notified of albuterol breathing tx order.
[2018-12-10] MEDS ORDERED: RT-ALBUTEROL SULF 2.5 MG/3 ML PRE-MIX VIAL ONE (10:26)
--- NOTE | 2018-12-10 10:30 | NUR ---
RT here for breathing tx.
[2018-12-10] MEDS ORDERED: RT-ALBUTEROL SULF 2.5 MG/3 ML PRE-MIX VIAL INH SCH ×2 (10:45→14:45)
[2018-12-10] MEDS ORDERED: AMPICILLIN FOR IV USE 1,000 MG in WATER (STERILE) FOR INJECTION 7.4 ML IV SCH (11:45)
[2018-12-10] MEDS ORDERED: LACTATED RINGERS 1,000 ML IV ONE (13:44)
[2018-12-10] MEDS ORDERED: SUFENTA 0.6MCG/ML BUPIVA 0.125 100 ML ONE (13:44)
--- NOTE | 2018-12-10 13:47 | NUR ---
anesthesia notified of pt's request for epidural placement.
[2018-12-10] MEDS ORDERED: CATHETER FLUSH 10 ML SYR IV SCH ×2 (14:00→22:00)
--- NOTE | 2018-12-10 14:00 | NUR ---
DONNIE Zhou here for epidural placement. Procedure explained, consent reviewed and signed by anesthesia. Questions answered to patient's satisfaction. Time out taken to verify correct patient/procedure. 1405- Patient up to side of bed, assisted into sitting position. Betadine prep done x3 and sterile drape applied. 1415-Local done, see anesthesia record. 1429-Test dose given, see anesthesia record for drug and dosage. Epidural catheter secured in place. Epidural placement complete. 1435- Assisted back into bed, monitors adjusted. Epidural dosed, see anesthesia record. Epidural of Sufenta/Bupvicaine @12cc/hr stated per pump. Patient tolerated procedure well.
[2018-12-10] MEDS ORDERED: LIDOCAINE PF 2% 5 ML (XYLOCAINE) VIAL ONE (14:23)
[2018-12-10] MEDS ORDERED: LACTATED RINGERS 1,000 ML IV SCH (14:41)
[2018-12-10] MEDS ORDERED: METOCLOPRAMIDE INJ 10 MG/2 ML (REGLAN) IV PRN (14:45)
[2018-12-10] MEDS ORDERED: EPIDURAL (SUFENTA 0.6MCG/ML BUPIVA 0.125%) 100 ML BAG EPI SCH (14:45)
[2018-12-10] MEDS ORDERED: ONDANSETRON 4 MG/2 ML (SDV) Z0FRAN IV PRN (14:45)
[2018-12-10] MEDS ORDERED: NALOXONE 0.4 MG/ML 1 ML (NARCAN) VIAL IV PRN ×2 (14:45)
[2018-12-10] MEDS ORDERED: diphenhydrAMINE 50 MG/ML INJ (BENADRYL) IV PRN (14:45)
--- NOTE | 2018-12-10 15:05 | NUR ---
was called. update given on SVE.
--- NOTE | 2018-12-10 16:41 | History & Physical-OB ---
OB - Chief Complaint & HPI Date/Time Date of Admission: Date of Admission: Dec 10, 2018 at 06:56 Date seen by a Provider: Dec 10, 2018 Time Seen by a Provider: 12:40 Chief Complaint/History OB-Reason for Admission/Chief: Induction of Labor (Medical induction for worsening shortness of breath with COPD) Hx : 4 Hx Para: 3 Expected Date of Delivery: Dec 20, 2018 Gestational Age in Weeks: 38 Gestational Age in Days: 4 Indication for induction: medical complication History of Labs B+, Ab neg Rub Imm RPR/HepB/HIV NR GC neg, chyl + during Normal GTT GBS + Allergies and Home Medications Allergies Coded Allergies: No Known Drug Allergies (Unverified , 10/20/12) Home Medications Acyclovir 400 Mg Tablet, 400 MG PO BID, (Reported) Albuterol 8.5 Gm Hfa.aer.ad, 8.5 GM IH Q2, (Reported) 2 PUFFS Beclomethasone Dipropionate 8.7 Gm Aer.w.adap, 8.7 GM IH BID Prescribed by: BETTINA ZAVALA on 09/18/17 1540 Budesonide 1 Mg/2 Ml Ampul.neb, 1 MG IH BID Prescribed by: BRETT HASSAN on 06/15/18 015 Cefdinir 300 Mg Capsule, 300 MG PO BID Prescribed by: BRETT HASSAN on 06/15/18 015 Ferrous Sulfate 325 Mg Tablet, 325 MG PO DAILY Prescribed by: BRINA CM on 10/18/17 0948 Ibuprofen 600 Mg Tablet, 600 MG PO Q6H Prescribed by: BRINA CM on 10/18/17 0948 Ipratropium/Albuterol Sulfate 3 Ml Ampul.neb, 3 ML IH Q6H PRN for SHORTNESS OF BREATH Prescribed by: BETTINA ZAVALA on 09/18/17 1540 Methylprednisolone 4 Mg Tab.ds.pk, 4 MG PO UD Prescribed by: BRETT HASSAN on 06/15/18 015 Metronidazole 500 Mg Tablet, 500 MG PO BID, (Reported) Pnv No.122/Iron/Folic Acid 1 Each Tablet, 1 EACH PO DAILY Prescribed by: BRETT HASSAN on 04/27/182150 Promethazine HCl 25 Mg Tablet, 25 MG PO Q6H PRN for NAUSEA/VOMITING Prescribed by: JOSE ROACH on 05/02/18 6530 Patient Home Medication List Home Medication List Reviewed: Yes OB - History Hx of Present Care: Yes Ultrasounds: Normal mid trimester US Obstetrical Complications: None Medical Complications: Respiratory (COPD Uncontrolled with multiple exacerbations during ) Information Induced Hypertension: No Maternal Gestational Diabetes: No Hemorrhage: No Obstetrical History Hx : 5 Hx Para: 3 Hx # Term Pregnancies: 2 Hx # Pregnancies: 1 Number of Living Children: 3 Hx Termination: No Hx Total # of Abortions (Spona: 1 Hx Multiple Gestation: No Hx Stillbirth: No Hx Complication: Yes Hx Induced Hypertens: Yes Hx Maternal Gestational Diabet: No Delivery History Hx Dystocia: No Hx Large For Gestational Age I: No Hx Small for Gestational Age I: No Hx Section: No Hx Vaginal Delivery Post C-Sec: No Hx Blood Disorders: No Adverse Rxn to Tranfusion: No Patient Past Medical History COPD Term Vaginal Delivery - 2005 Hemorrhage requiring blood transfusion - 2005 SAB x2 at 8 wks - 2008, 2015 Vaginal Delivery at 36 wks - 2014 Preeclampsia - 2014 Hx of abnormal PAP with + HPV; s/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 Hx Gonorrhea, Chlamydia, Trich COPD Asthma HTN Tobacco Abuse THC Abuse Past Surgical History: abdominal laparoscopy intestine surgery as an Social History/Family History HIV/AIDS: No Sexually Transmitted Disease: Yes (HERPES, 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 ) Alcohol Use: Denies Use Recreational Drug Use: No 2nd Hand Smoke Exposure: Yes Immunizations Hepatitis A: Yes Hepatitis B: Yes Tetanus Booster (TDap): Less than 5yrs (10/28/2018) OB - Admission Exam Physical Exam Vitals: Vital Signs 12/10/18 12/10/18 11:00 15:15 Temp 36.1 Pulse 104 Resp 20 B/P (MAP) 124/66 (85) Pulse Ox 100 O2 Delivery Non Rebreather O2 Flow Rate 10.00 HEENT: NCAT Heart: Rhythm Normal Lungs: Wheezes Abdomen: Gravid Cervical Dilatation: 3cm Effacement: 75% Station: -1 Membranes: Intact Heart Rate: 140's Accelerations: Accelerations Present Decelerations: No Decelerations Short Term Variability: Present Contractions on Admission: >10 Minutes Apart Labs Laboratory Tests Test 12/10/18 08:30 12/10/18 09:10 Range/Units Urine Color YELLOW Urine Clarity CLEAR Urine pH 6 5-9 Urine Specific [place] 1.015 L 1.016-1.022 Urine Protein NEGATIVE NEGATIVE Urine Glucose (UA) NEGATIVE NEGATIVE Urine Ketones NEGATIVE NEGATIVE Urine Nitrite NEGATIVE NEGATIVE Urine Bilirubin NEGATIVE NEGATIVE Urine Urobilinogen NORMAL NORMAL MG/DL Urine Leukocyte Esterase NEGATIVE NEGATIVE Urine RBC (Auto) 3+ H NEGATIVE Urine RBC 5-10 H /HPF Urine WBC 2-5 /HPF Urine Squamous Epithelial Cells 5-10 /HPF Urine Crystals NONE /LPF Urine Bacteria TRACE /HPF Urine Casts NONE /LPF Urine Mucus SMALL H /LPF Urine Culture Indicated NO White Blood Count 9.2 4.3-11.0 10^3/uL Red Blood Count 4.11 L 4.35-5.85 10^6/uL Hemoglobin 10.5 L 11.5-16.0 G/DL Hematocrit 34 L 35-52 % Mean Corpuscular Volume 83 80-99 FL Mean Corpuscular Hemoglobin 26 25-34 PG Mean Corpuscular Hemoglobin Concent 31 L 32-36 G/DL Red Cell Distribution Width 14.4 10.0-14.5 % Platelet Count 293 130-400 10^3/uL Mean Platelet Volume 9.2 7.4-10.4 FL Neutrophils (%) (Auto) 75 42-75 % Lymphocytes (%) (Auto) 14 12-44 % Monocytes (%) (Auto) 7 0-12 % Eosinophils (%) (Auto) 5 0-10 % Basophils (%) (Auto) 0 0-10 % Neutrophils # (Auto) 6.8 1.8-7.8 X 10^3 Lymphocytes # (Auto) 1.3 1.0-4.0 X 10^3 Monocytes # (Auto) 0.7 0.0-1.0 X 10^3 Eosinophils # (Auto) 0.4 H 0.0-0.3 10^3/uL Basophils # (Auto) 0.0 0.0-0.1 10^3/uL OB - Assessment/Plan/Diagnosis Assessment Assessment: induction of labor Admission Dx COPD with exacerbation Morbid Obesity 38 week gestation Admission Status: Inpatient Order (span 2 midnights) Reason for Inpatient Admission: Labor Plan Plan: Induction Other Plan 33 yo @ 38.4 wga here for IOL for Medical complication for her COPD and Morbid obesity Plan - Attempted AROM at 1240 - GBS +: Ampicillin started - Pitocin protocol Copy Copies To 1: BRINA CM MD, HOLLY R MD Dec 10, 2018 16:41
--- NOTE | 2018-12-10 16:49 | OB Labor & Delivery Record ---
Vag Delivery Note Vag Delivery Note Date of Delivery: 12/10/18 Preoperative Diagnosis: Christine Peraza is a (33 /Para 5 / 3, Gestational Age (wks)38.4 wga here for IOL for medical complications of COPD and Morbid obesity Postoperative Diagnosis: Same Surgeon: BRINA CM Paperhanger Assistant: None Anesthesia: Epidural Delivery Type: @ 1620 Findings: Viable Male infant, apgars 8/9, weight 6# 14, 3560 grams Lacerations: none Intact placenta with 3 vessel cord. No nuchal cord, body cord or shoulder dystocia Estimated Blood Loss: 100 ml Complications: None Condition: Stable Description of Procedure: The patient is a 33 year old female who presented for IOL for medical complication for uncontrolled COPD with worsening shortness of breath over the last week and morbid obesity. She was admitted and informed consent was obtained. Her labor course was unremarkable. She progressed to complete dilatation and began to push. She was then set up for delivery. The 's head was delivered atraumatically in the JAYASHREE position. The shoulders and remainder of the infant's body were then delivered without difficulty. Upon delivery, the head was held below the level of the perineum and the mouth and nares were bulb suctioned. The cord was doubly clamped and cut after 3 min delay and the was placed on maternal abdomen and attended to by the pediatric staff. An intact placenta with 3-vessel cord delivered via Teddy and there was found to be minimal bleeding.~ Vigorous fundal massage was performed and the fundus was found to be firm. IV oxytocin was given. Examination of the vagina and perineum revealed no lacerations that required repair. Following the repair, sponge, instrument and needle counts were correct. Mom and baby were both in stable condition in the labor suite. Vitals - Labs Vital Signs - I&O Vital Signs Date Time Temp Pulse Resp B/P (MAP) Pulse Ox O2 Delivery O2 Flow Rate FiO2 12/10/18 15:15 104 20 124/66 (85) 100 Non Rebreather 10.00 12/10/18 15:10 97 20 133/61 (85) 100 Non Rebreather 10.00 12/10/18 15:05 99 20 140/65 (90) 100 Non Rebreather 10.00 12/10/18 15:00 105 20 130/58 (82) 100 Non Rebreather 10.00 12/10/18 14:55 96 22 138/62 (87) 100 Non Rebreather 10.00 12/10/18 14:50 129 22 133/62 (85) 100 Non Rebreather 10.00 12/10/18 14:45 99 20 132/70 (90) 100 Non Rebreather 10.00 12/10/18 14:40 96 22 126/68 (87) 100 Non Rebreather 10.00 12/10/18 14:37 100 Non Rebreather 10.00 12/10/18 14:35 93 20 131/73 (92) 100 Non Rebreather 10.00 12/10/18 14:30 105 20 167/87 (113) 100 Non Rebreather 10.00 12/10/18 14:20 108 22 160/80 (106) 100 Non Rebreather 10.00 12/10/18 14:15 103 20 143/81 (101) 100 Non Rebreather 10.00 12/10/18 14:10 100 22 136/78 (97) 100 Non Rebreather 10.00 12/10/18 14:05 112 22 143/84 (103) 99 Non Rebreather 10.00 12/10/18 14:00 90 22 137/74 (95) 99 Non Rebreather 10.00 12/10/18 13:57 Non Rebreather 10.00 12/10/18 13:45 85 20 136/78 (97) Room Air 12/10/18 13:30 101 20 132/78 (96) Room Air 12/10/18 13:15 86 20 128/62 (84) Room Air 12/10/18 13:00 88 20 140/67 (91) Room Air 12/10/18 12:45 90 20 144/65 (91) Room Air 12/10/18 12:30 94 20 130/56 (80) Room Air 12/10/18 12:15 88 20 139/69 (92) Room Air 12/10/18 12:00 20 Room Air 12/10/18 11:59 98 Room Air 12/10/18 11:45 91 20 137/65 (89) Room Air 12/10/18 11:30 90 20 137/79 (98) Room Air 12/10/18 11:15 91 20 134/61 (85) Room Air 12/10/18 11:00 36.1 91 20 144/65 (91) Room Air 12/10/18 10:45 72 20 136/69 (91) Room Air 12/10/18 10:38 97 Room Air 12/10/18 10:30 86 20 120/77 (91) Room Air 12/10/18 10:15 74 20 123/79 (94) Room Air 12/10/18 10:08 88 20 117/70 (86) Room Air 12/10/18 07:20 35.9 99 18 133/71 (91) 100 Room Air Labs Laboratory Tests 12/10/18 08:30: Urine Color YELLOW, Urine Clarity CLEAR, Urine pH 6, Urine Specific [place] 1.015L, Urine Protein NEGATIVE, Urine Glucose (UA) NEGATIVE, Urine Ketones NEGATIVE, Urine Nitrite NEGATIVE, Urine Bilirubin NEGATIVE, Urine Urobilinogen NORMAL, Urine Leukocyte Esterase NEGATIVE, Urine RBC (Auto) 3+H, Urine RBC 5-10H , Urine WBC 2-5, Urine Squamous Epithelial Cells 5-10, Urine Crystals NONE, Urine Bacteria TRACE, Urine Casts NONE, Urine Mucus SMALLH, Urine Culture Indicated NO 12/10/18 09:10: White Blood Count 9.2, Red Blood Count 4.11L, Hemoglobin 10.5L, Hematocrit 34L, Mean Corpuscular Volume 83, Mean Corpuscular Hemoglobin 26, Mean Corpuscular Hemoglobin Concent 31L, Red Cell Distribution Width 14.4, Platelet Count 293, Mean Platelet Volume 9.2, Neutrophils (%) (Auto) 75, Lymphocytes (%) (Auto) 14, Monocytes (%) (Auto) 7, Eosinophils (%) (Auto) 5, Basophils (%) (Auto) 0, Neutrophils # (Auto) 6.8, Lymphocytes # (Auto) 1.3, Monocytes # (Auto) 0.7, Eosinophils # (Auto) 0.4H, Basophils # (Auto) 0.0 BRINA CM MD Dec 10, 2018 16:49
[2018-12-10] MEDS ORDERED: WITCH HAZEL(TUCKS) 40 EA JAR TOP PRN (17:00)
[2018-12-10] MEDS ORDERED: BENZOCAINE/MENTHOL (DERMOPLAST) 56 ML CAN TP PRN (17:00)
--- NOTE | 2018-12-10 17:27 | NUR ---
FFu/1. lt rubra noted. no clots expressed.
--- NOTE | 2018-12-10 17:44 | NUR ---
FFu/0. pitocin infusion completed. IV converted to HL.
--- NOTE | 2018-12-10 17:54 | NUR ---
regular diet served
[2018-12-10] MEDS: ACETAMINOPHEN 500 MG TAB (TYLENOL) PO SCH (18:12)
[2018-12-10] MEDS: IBUPROFEN 600 MG (MOTRIN) TAB PO SCH (18:12)
--- NOTE | 2018-12-10 18:52 | NUR ---
regular diet served.
--- NOTE | 2018-12-10 19:10 | NUR ---
repot given to ZABRINA Benton.
--- NOTE | 2018-12-10 21:25 | NUR ---
INITIAL SHIFT ASSESSMENT DONE. VSS. PT REQUESTS TO GET UP TO BATHROOM AND VOID. ASSIST X1 TO W/C. PT VOIDED WITHOUT DIFFICULTY.
--- NOTE | 2018-12-10 21:50 | NUR ---
PT INTO SHOWER. NURSE REMAINS IN ROOM. PT ERWIN WELL. STEADY ON FEET. PT DENIES C/O'S AT THIS TIME.
--- NOTE | 2018-12-10 22:40 | NUR ---
PT SITTING UP IN BED FEEDING . DENIES ANY NEEDS.
[2018-12-11] MEDS: ACETAMINOPHEN 500 MG TAB (TYLENOL) PO SCH ×3 (01:06→18:22)
--- NOTE | 2018-12-11 01:06 | NUR ---
TYLENOL ADMINISTERED BY EMAIL SPECIALIST.
[2018-12-11] MEDS: RT-ALBUTEROL SULF 2.5 MG/3 ML PRE-MIX VIAL INH PRN ×4 (01:08→14:29)
--- NOTE | 2018-12-11 02:30 | NUR ---
VS OBTAINED. INFANT TO NSY. PT ENCOURAGED TO REST.
[2018-12-11 03:10] VITALS: BP 130/71
[2018-12-11] MEDS: IBUPROFEN 600 MG (MOTRIN) TAB PO SCH ×4 (05:55→23:37)
--- NOTE | 2018-12-11 06:14 | NUR ---
RT HERE ADMINISTERING BREATHING TREATMENT.
--- NOTE | 2018-12-11 06:32 | NUR ---
LAB HAS COMPLETED AM LAB DRAW.
[2018-12-11 06:48] LABS: BASOPHILS % (AUTO) 0 % (0-10); EOSINOPHILS # (AUTO) 0.4 10^3/uL (0.0-0.3); EOSINOPHILS % (AUTO) 5 % (0-10); HEMATOCRIT 34 % (35-52); HEMOGLOBIN 10.4 G/DL (11.5-16.0); LYMPHOCYTES # (AUTO) 1.5 X 10^3 (1.0-4.0); LYMPHOCYTES % (AUTO) 16 % (12-44); MEAN CORPUSCULAR HEMOGLOBIN 25 PG (25-34); MEAN CORPUSCULAR HGB CONC 31 G/DL (32-36); MEAN CORPUSCULAR VOLUME 83 FL (80-99); MEAN PLATELET VOLUME 9.2 FL (7.4-10.4); MONOCYTES # (AUTO) 0.7 X 10^3 (0.0-1.0); MONOCYTES % (AUTO) 8 % (0-12); NEUTROPHILS # (AUTO) 6.4 X 10^3 (1.8-7.8); NEUTROPHILS % (AUTO) 71 % (42-75); PLATELET COUNT 311 10^3/uL (130-400); RED CELL DISTRIBUTION WIDTH 14.7 % (10.0-14.5); WHITE BLOOD COUNT 9.1 10^3/uL (4.3-11.0)
[2018-12-11 07:47] VITALS: BP 144/83
--- NOTE | 2018-12-11 07:49 | Anesthesia-General Post-Op ---
General Patient Condition Mental Status/LOC: Same as Preop Cardiovascular: Satisfactory Nausea/Vomiting: Absent Respiratory: Satisfactory Pain: Controlled Complications: Absent Post Op Complications Complications None Follow Up Care/Instructions Patient Instructions None needed. Anesthesia/Patient Condition Patient Condition Patient is doing well, no complaints, stable vital signs, no apparent adverse anesthesia problems. No complications reported per nursing. BEN AGUIRRE CRNA Dec 11, 2018 07:48
[2018-12-11] MEDS: RT-ALBUTEROL SULF 2.5 MG/3 ML PRE-MIX VIAL INH SCH ×7 (08:20→21:55)
[2018-12-11] MEDS ORDERED: WITCH HAZEL(TUCKS) 40 EA JAR TOP PRN (09:45)
[2018-12-11] MEDS: RT-BUDESONIDE NEBS 0.5 MG/2ML (PULMICORT) AMP INH SCH ×2 (10:56→18:40)
--- NOTE | 2018-12-11 10:57 | NUR ---
PATIENT REFUSED HER 1000 SVN BT OF ALBUTEROL AND THE PULMICORT; PATIENT WAS ASLEEP BUT WOKE UP FOR RT AND THE PATIENT TOLD RT MARA THAT SHE DID NOT WANT HER BREATHING TX AT THIS TIME
[2018-12-11 11:20] VITALS: BP 134/82
[2018-12-11] MEDS: DOCUSATE SODIUM 100 MG (COLACE) CAP PO SCH ×2 (11:37→20:50)
--- NOTE | 2018-12-11 11:40 | NUR ---
PT SITTING UP ON THE SIDE OF THE BED, LIGHTS REMAIN OFF, REQUESTING PAIN MEDICATION. MEDS GIVEN PO; SEE EMAR FOR FURTHER. INITIAL SHIFT ASSESSMENT COMPLETED; SEE INTERVENTION FOR FURTHER. NO NEEDS OR QUESTIONS VOICED AT THIS TIME. CALL LIGHT AVAILABLE.
--- NOTE | 2018-12-11 12:23 | NUR ---
RT NOTIFIED THAT PT IS READY FOR HER BREATHING TX WHEN AVAILABLE.
--- NOTE | 2018-12-11 12:41 | Progress Note ---
Subjective Subjective/Events-last exam Doing ok, continues to have some SOA, breathing treatments help for about 2 hours. Objective Exam Last Set of Vital Signs Vital Signs Date Time Temp Pulse Resp B/P (MAP) Pulse Ox O2 Delivery O2 Flow Rate FiO2 12/11/18 11:20 36.7 82 20 134/82 (99) 98 Room Air 12/10/18 16:15 10.00 Capillary Refill : General: Alert, Oriented X3, Cooperative Lungs: Clear to Auscultation, Normal Air Movement Heart: Regular Rate Psych/Mental Status: Mood NL Results/Procedures Lab Laboratory Tests 12/11/18 06:25: White Blood Count 9.1, Red Blood Count 4.10L, Hemoglobin 10.4L, Hematocrit 34L, Mean Corpuscular Volume 83, Mean Corpuscular Hemoglobin 25, Mean Corpuscular Hemoglobin Concent 31L, Red Cell Distribution Width 14.7H, Platelet Count 311, Mean Platelet Volume 9.2, Neutrophils (%) (Auto) 71, Lymphocytes (%) (Auto) 16, Monocytes (%) (Auto) 8, Eosinophils (%) (Auto) 5, Basophils (%) (Auto) 0, Neutrophils # (Auto) 6.4, Lymphocytes # (Auto) 1.5, Monocytes # (Auto) 0.7, Eosinophils # (Auto) 0.4H, Basophils # (Auto) 0.0 Assessment/Plan Assessment/Plan Assessment & Plan PPD #1 s/p GBS+ - adequate antibiotic ppx hx of chlamydia and HSV COPD Mobrid obesity Routine care. Restart corticosteroid inhaler Anticipate DC home tomorrow. Clinical Quality Measures DVT/VTE Risk/Contraindication: Risk Factor Score Per Nursin RFS Level Per Nursing on Admit: 3=High TOÑO BONILLA DO Dec 11, 2018 12:41
--- NOTE | 2018-12-11 14:54 | NUR ---
PT , REMAINS C/O CRAMPING. NO FURTHER NEEDS VOICED.
[2018-12-11 16:05] VITALS: BP 131/62
--- NOTE | 2018-12-11 18:25 | NUR ---
PT IN BED, FAMILY AT THE BEDSIDE. LUIS CRACKERS AND PEANUT BUTTER PROVIDED PER REQUEST. NO FURTHER NEEDS VOICED.
[2018-12-11 19:47] VITALS: BP 152/81
--- NOTE | 2018-12-11 21:10 | NUR ---
INFORMED DR. BONILLA THAT PATIENT C/O ABD PAIN-10/25 AND THAT SHE STATES SHE IS PASSING GAS AND THAT THE TYLENOL AND MOTRIN ARE NOT HELPING. BOWEL SOUNDS AUSCULTATED. RECEIVED ORDER FOR SIMETHICONE. 0000-PATIENT RESTING COMFORTABLY WITH EYES CLOSED. 0215-PATIENT REFUSED TYLENOL AT THIS TIME.
[2018-12-11] MEDS ORDERED: SIMETHICONE 80 MG (MYLICON) CHEW PO PRN (21:15)
[2018-12-12] MEDS: RT-ALBUTEROL SULF 2.5 MG/3 ML PRE-MIX VIAL INH SCH ×4 (01:48→06:47)
[2018-12-12 02:00] VITALS: BP 128/69
[2018-12-12] MEDS: ACETAMINOPHEN 500 MG TAB (TYLENOL) PO SCH ×3 (02:27→10:37)
[2018-12-12] MEDS ORDERED: IBUP-844 PO (08:13)
[2018-12-12] MEDS: IBUPROFEN 600 MG (MOTRIN) TAB PO SCH (09:09)
[2018-12-12] MEDS: DOCUSATE SODIUM 100 MG (COLACE) CAP PO SCH (09:09)
[2018-12-12 09:10] VITALS: BP 145/89
--- NOTE | 2018-12-12 09:15 | NUR ---
PT SITTING UP ON THE SIDE OF THE BED, ON HER PHONE. VS OBTAINED. INITIAL SHIFT ASSESSMENT COMPLETED; SEE INTERVENTION FOR FURTHER. MEDS GIVEN; SEE EMAR. PLAN FOR DISCHARGE TODAY.
--- NOTE | 2018-12-12 10:45 | NUR ---
DISCHARGE PAPERS PROVIDED AND REVIEWED WITH PT, PT VERBALIZES UNDERSTANDING AND DENIES ANY QUESTIONS AT THIS TIME. PAPER SIGNED.
--- NOTE | 2018-12-12 11:01 | NUR ---
RX CALLED INTO [facility].
[2018-12-12] MEDS: RT-BUDESONIDE NEBS 0.5 MG/2ML (PULMICORT) AMP INH SCH (11:06)
[2018-12-12 12:42] VITALS: BP 152/77
--- NOTE | 2018-12-12 14:00 | NUR ---
PT DISCHARGED FROM -310 TO PERSONAL AUTO VIA AMBULATORY IN STABLE CONDITION ACC BY FAMILY, AND Palma SANDERS RN.
== END 2018-12-12 14:00 | disposition home or self-care (01) | DRG 806 ==
LOC: LDRP 06:56
PROVIDERS: ADMIT Family Medicine; ATTEND Family Medicine
PROC: 10E0XZZ Delivery of Products of Conception, External Approach (ICD-10-PCS; principal; 2018-12-10)
PROC: 3E033VJ Introduction of Other Hormone into Peripheral Vein, Percutaneous Approach (ICD-10-PCS; 2018-12-10)
DX: O99.52 Diseases of the respiratory system complicating childbirth (principal); J44.9 Chronic obstructive pulmonary disease, unspecified; O98.32 Other infections with a predominantly sexual mode of transmission complicating childbirth; A60.9 Anogenital herpesviral infection, unspecified; A74.9 Chlamydial infection, unspecified; O99.214 Obesity complicating childbirth; E66.01 Morbid (severe) obesity due to excess calories; O99.824 Streptococcus B carrier state complicating childbirth; Z79.899 Other long term (current) drug therapy; Z3A.38 38 weeks gestation of pregnancy; Z37.0 Single live birth
CPT/HCPCS: 36415; 81000; 85025; 86850; 86900; 86901; 94640; 94760

== ENCOUNTER 2018-12-15 01:03 | Emergency (ER) | payer MEDICAID ==
[~2018-12-15] VITALS: Ht 180 cm; Wt 184.6 kg
[2018-12-15] MEDS ORDERED: RT-ALBUTEROL/IPRATROPIUM 3 ML (DUONEB) VIAL ONE (01:13)
[2018-12-15] MEDS ORDERED: RT-ALBUTEROL SULF 2.5 MG/3 ML PRE-MIX VIAL ONE (01:13)
[2018-12-15] MEDS ORDERED: RT-ALBUTEROL SULF 2.5 MG/3 ML PRE-MIX VIAL INH STA (01:33)
[2018-12-15] MEDS ORDERED: NS IV 1000 ML 1,000 ML IV SCH (01:33)
[2018-12-15 01:40] LABS: ABG BASE EXCESS -0.1 MMOL/L (-2.5-2.5); ABG OXYGEN SATURATION 100 % (94-100); ABG PCO2 39 MMHG (35-45); ABG PO2 197 MMHG (79-93); ABG TCO2 25.4 MMOL/L (21.0-31.0)
[2018-12-15 01:43] LABS: ALLENS TEST POSITIVE; INSPIRED O2 6; PATIENT TEMP 36.5; VENTILATOR NO
[2018-12-15 01:44] LABS: BASOPHILS % (AUTO) 0 % (0-10); EOSINOPHILS # (AUTO) 0.5 10^3/uL (0.0-0.3); EOSINOPHILS % (AUTO) 6 % (0-10); HEMATOCRIT 36 % (35-52); HEMOGLOBIN 11.1 G/DL (11.5-16.0); LYMPHOCYTES # (AUTO) 2.1 X 10^3 (1.0-4.0); LYMPHOCYTES % (AUTO) 27 % (12-44); MEAN CORPUSCULAR HEMOGLOBIN 25 PG (25-34); MEAN CORPUSCULAR HGB CONC 31 G/DL (32-36); MEAN CORPUSCULAR VOLUME 82 FL (80-99); MEAN PLATELET VOLUME 8.9 FL (7.4-10.4); MONOCYTES # (AUTO) 0.8 X 10^3 (0.0-1.0); MONOCYTES % (AUTO) 10 % (0-12); NEUTROPHILS # (AUTO) 4.5 X 10^3 (1.8-7.8); NEUTROPHILS % (AUTO) 57 % (42-75); PLATELET COUNT 346 10^3/uL (130-400); RED CELL DISTRIBUTION WIDTH 14.6 % (10.0-14.5); WHITE BLOOD COUNT 7.8 10^3/uL (4.3-11.0)
[2018-12-15] MEDS ORDERED: RT-ALBUTEROL/IPRATROPIUM 3 ML (DUONEB) VIAL INH ONE (01:45)
[2018-12-15] MEDS ORDERED: KETOROLAC 30 MG/ML VIAL IVP ONE (01:45)
--- NOTE | 2018-12-15 01:46 | ED Abdominal Pain ---
General Chief Complaint: Abdominal/GI Problems Stated Complaint: ABD PAIN Source of Information: Patient, EMS Exam Limitations: No Limitations History of Present Illness Date Seen by Provider: Dec 15, 2018 Time Seen by Provider: 00:57 Initial Comments Patient presents to ER by EMS from home with chief complaint of midline epigastric abdominal pain down to the umbilicus. It started approximately 5 days ago after she delivered by vaginal delivery and they thought maybe she had air or gas in the colon. She has not taken anything for tonight. This episode started about an hour and a half prior to arrival. She also is having wheezing and shortness of breath. She has a known history of asthma. She was given a DuoNeb en route by EMS which did help. She did not have any problems with the . She is known to Dr. Cm for OB and primary care. She has no history of hypertension or epilepsy or preeclampsia. No visual changes. She had a laparoscopic surgery for abdominal pain from years ago that did not find anything. No history of endometriosis. She is 5 days . Allergies and Home Medications Allergies Coded Allergies: No Known Drug Allergies (Unverified , 10/20/12) Home Medications Albuterol 8.5 Gm Hfa.aer.ad, 8.5 GM IH Q2, (Reported) 2 PUFFS Beclomethasone Dipropionate 8.7 Gm Aer.w.adap, 8.7 GM IH BID Prescribed by: BETTINA ZAVALA on 09/18/17 1540 Ibuprofen 600 Mg Tablet, 600 MG PO Q6H Prescribed by: BRINA CM on 10/18/17 0948 Ibuprofen 600 Mg Tablet, 600 MG PO Q6H Prescribed by: TOÑO BONILLA on 12/12/18 0813 Ipratropium/Albuterol Sulfate 3 Ml Ampul.neb, 3 ML IH Q6H PRN for SHORTNESS OF BREATH Prescribed by: BETTINA ZAVALA on 09/18/17 1540 Pnv No.122/Iron/Folic Acid 1 Each Tablet, 1 EACH PO DAILY Prescribed by: BRETT HASSAN on 04/27/18 2151 Prednisone 20 Mg Tab, 40 MG PO BID Prescribed by: APRIL FONSECA on 12/15/18 0535 Patient Home Medication List Home Medication List Reviewed: Yes Review of Systems Review of Systems Constitutional: No chills, No fever, No malaise EENTM: No Blurred Vision, No Double Vision Respiratory: Denies Cough, Denies Shortness of Air Cardiovascular: Denies Chest Pain, Denies Edema Gastrointestinal: See HPI, Abdominal Pain; Denies Constipated, Denies Diarrhea, Denies Nausea Genitourinary: Denies Burning, Denies Discharge Musculoskeletal: No back pain, No joint pain Skin: No pruritus, No rash Psychiatric/Neurological: Denies Headache, Denies Numbness Past Hnxtfem-Qyngjo-Wcxwku Hx Patient Social History Alcohol Use: Denies Use Recreational Drug Use: Yes Drug of Choice: MARIJUANA Smoking Status: Current Everyday Smoker Type Used: Cigarettes 2nd Hand Smoke Exposure: Yes Recent Hopitalizations: No Immunizations Up To Date Tetanus Booster (TDap): Less than 5yrs PED Vaccines UTD: Yes Seasonal Allergies Seasonal Allergies: Yes Past Medical History Surgeries: Yes (wisdom teeth,surgery on intestines as an infant) Abdominal Respiratory: Yes Asthma, COPD Currently Using CPAP: No Currently Using BIPAP: No Cardiac: Yes (HTN--DOES NOT TAKE MEDICATIONS) Hypertension Neurological: No 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 Disorders: No 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, Ovarian Cyst Sexually Transmitted Disease: Yes (HERPES, 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 ) HIV/AIDS: No Genitourinary: Yes UTI-Chronic Gastrointestinal: Yes Gastroesophageal Reflux, Hemorrhoids Musculoskeletal: No Endocrine: Yes (MORBID OBESITY) HEENT: No Loss of Vision: Denies Hearing Impairment: Denies Cancer: No Psychosocial: Yes Depression Integumentary: Yes Herpes Blood Disorders: Yes (ANEMIA) Adverse Reaction/Blood Tranf: No Family Medical History Asthma 19 FATHER G8 BROTHER Completed stroke MATERNAL GRANDFATHER Diabetes mellitus 19 FATHER 19 MOTHER Drug abuse 19 FATHER G8 BROTHER G8 BROTHER G8 BROTHER FH: breast cancer MATERNAL GRANDMOTHE ( AGE 71) Headache disorder G8 SISTER Hypertension 19 MOTHER G8 BROTHER Psychosocial problem G8 BROTHER Seizure disorder MATERNAL GRANDMOTHE Physical Exam Vital Signs Vital Signs - First Documented 12/15/18 01:03 Temp 36.5 Pulse 85 Resp 25 B/P (MAP) 160/107 (124) Pulse Ox 100 O2 Delivery OxyMask O2 Flow Rate 10.00 Capillary Refill : Height/Weight/BMI Height: 5'11.00" Weight: 362lbs. 0.8oz. [id number]; 56.97 BMI Method:Stated General Appearance: WD/WN, no apparent distress HEENT: PERRL/EOMI, pharynx normal Neck: non-tender, normal inspection Respiratory: chest non-tender, lungs clear Cardiovascular: normal peripheral pulses, regular rate, rhythm Peripheral Pulses: 2+ Radial Pulses (R), 2+ Radial Pulses (L) Gastrointestinal: normal bowel sounds, soft, tenderness (epigastric) Neurologic/Psychiatric: alert, oriented x 3, other (anxious affect) Skin: normal color, warm/dry Progress/Results/Core Measures Results/Orders Lab Results Laboratory Tests Test 12/15/18 01:09 12/15/18 01:15 12/15/18 04:20 Range/Units White Blood Count 7.8 4.3-11.0 10^3/uL Red Blood Count 4.44 4.35-5.85 10^6/uL Hemoglobin 11.1 L 11.5-16.0 G/DL Hematocrit 36 35-52 % Mean Corpuscular Volume 82 80-99 FL Mean Corpuscular Hemoglobin 25 25-34 PG Mean Corpuscular Hemoglobin Concent 31 L 32-36 G/DL Red Cell Distribution Width 14.6 H 10.0-14.5 % Platelet Count 346 130-400 10^3/uL Mean Platelet Volume 8.9 7.4-10.4 FL Neutrophils (%) (Auto) 57 42-75 % Lymphocytes (%) (Auto) 27 12-44 % Monocytes (%) (Auto) 10 0-12 % Eosinophils (%) (Auto) 6 0-10 % Basophils (%) (Auto) 0 0-10 % Neutrophils # (Auto) 4.5 1.8-7.8 X 10^3 Lymphocytes # (Auto) 2.1 1.0-4.0 X 10^3 Monocytes # (Auto) 0.8 0.0-1.0 X 10^3 Eosinophils # (Auto) 0.5 H 0.0-0.3 10^3/uL Basophils # (Auto) 0.0 0.0-0.1 10^3/uL Prothrombin Time 14.1 12.2-14.7 SEC INR Comment 1.1 0.8-1.4 Activated Partial Thromboplast Time 30 24-35 SEC Sodium Level 141 135-145 MMOL/L Potassium Level 3.8 3.6-5.0 MMOL/L Chloride Level 106 98-107 MMOL/L Carbon Dioxide Level 24 21-32 MMOL/L Anion Gap 11 5-14 MMOL/L Blood Urea Nitrogen 17 7-18 MG/DL Creatinine 0.70 0.60-1.30 MG/DL Estimat Glomerular Filtration Rate > 60 BUN/Creatinine Ratio 24 Glucose Level 79 70-105 MG/DL Calcium Level 9.3 8.5-10.1 MG/DL Corrected Calcium 9.9 8.5-10.1 MG/DL Total Bilirubin 0.3 0.1-1.0 MG/DL Aspartate Amino Transf (AST/SGOT) 24 5-34 U/L Alanine Aminotransferase (ALT/SGPT) 26 0-55 U/L Alkaline Phosphatase 99 40-136 U/L Troponin I < 0.028 <0.028 NG/ML C-Reactive Protein High Sensitivity 3.80 H 0.00-0.50 MG/DL Total Protein 7.0 6.4-8.2 GM/DL Albumin 3.3 3.2-4.5 GM/DL Lipase 38 8-78 U/L Blood Gas Puncture Site RIGHT RADIAL Blood Gas Patient Temperature 36.5 Arterial Blood pH 7.40 7.37-7.43 Arterial Blood Partial Pressure CO2 39 35-45 MMHG Arterial Blood Partial Pressure O2 197 H 79-93 MMHG Arterial Blood HCO3 24 23-27 MMOL/L Arterial Blood Total CO2 25.4 21.0-31.0 MMOL/L Arterial Blood Oxygen Saturation 100 94-100 % Arterial Blood Base Excess -0.1 -2.5-2.5 MMOL/L Chauncey Test POSITIVE Blood Gas Ventilator Setting NO Blood Gas Inspired Oxygen 6 Urine Color YELLOW Urine Clarity CLEAR Urine pH 5 5-9 Urine Specific [place] 1.020 1.016-1.022 Urine Protein NEGATIVE NEGATIVE Urine Glucose (UA) NEGATIVE NEGATIVE Urine Ketones NEGATIVE NEGATIVE Urine Nitrite NEGATIVE NEGATIVE Urine Bilirubin NEGATIVE NEGATIVE Urine Urobilinogen NORMAL NORMAL MG/DL Urine Leukocyte Esterase 1+ H NEGATIVE Urine RBC (Auto) 4+ H NEGATIVE Urine RBC 0-2 /HPF Urine WBC 0-2 /HPF Urine Squamous Epithelial Cells 2-5 /HPF Urine Crystals NONE /LPF Urine Bacteria FEW H /HPF Urine Casts NONE /LPF Urine Mucus NEGATIVE /LPF Urine Culture Indicated NO My Orders Orders - APRIL FONSECA Ed Iv/Invasive Line Start (12/15/18 01:33) Ns Iv 1000 Ml (Sodium Chloride 0.9%) (12/15/18 01:33) Albuterol Pre-Mix Nebs (Rt) (Proventil (12/15/18 01:33) Albuterol/Ipra Inhalation Soln (Duoneb I (12/15/18 01:45) Chest 1 View, Ap/Pa Only (12/15/18 01:33) Svn Small Volume Nebulizer (12/15/18 01:33) Ketorolac Injection (Toradol Injection) (12/15/18 01:45) Arterial Blood Gas (12/15/18 01:33) Cbc With Automated Diff (12/15/18 01:33) Comprehensive Metabolic Panel (12/15/18 01:33) Hs C Reactive Protein (12/15/18:33) Protime With Inr (12/15/18:33) Partial Thromboplastin Time (12/15/18 01:33) Ua Culture If Indicated (12/15/18 01:33) Lipase (12/15/18 01:33) Troponin I (12/15/18 01:56) Ekg Tracing (12/15/18 01:56) Continuous Ekg Monitoring (12/15/18 01:56) O2 (12/15/18 01:56) Ct Abdomen/Pelvis W (12/15/18 02:09) Methylprednisolone Sod Succ (Solu-Medrol (12/15/18 05:00) Lidocaine 2% Viscous 15 Ml (Xylocaine Vi (12/15/18 05:00) Antacid Suspension (Mylanta Suspension (12/15/18 05:00) Famotidine Injection (Pepcid Injection) (12/15/18 04:52) Iohexol Injection (Omnipaque 350 Mg/Ml 1 (12/15/18 05:15) Received Contrast (Hold Metformin- Contr (12/15/18 05:15) Ns (Ivpb) (Sodium Chloride 0.9% Ivpb Bag (12/15/18 05:15) Medications Given in ED Current Medications Medications Dose Ordered Sig/Violette Route Start Time Stop Time Status Last Admin Dose Admin Al Hydrox/Mg Hydrox/Simethicone 30 ml ONCE ONCE PO 12/15/18 05:00 12/15/18 05:01 DC 12/15/18 05:39 30 ML Albuterol/ Ipratropium 3 ml ONCE ONCE INH 12/15/18 01:45 12/15/18 01:46 DC 12/15/18 01:19 3 ML Iohexol 100 ml ONCE ONCE IV 12/15/18 05:15 12/15/18 05:16 DC 12/15/18 05:44 100 ML Ketorolac Tromethamine 30 mg ONCE ONCE IVP 12/15/18 01:45 12/15/18 01:46 DC 12/15/18 01:53 30 MG Lidocaine HCl 15 ml ONCE ONCE PO 12/15/18 05:00 12/15/18 05:01 DC 12/15/18 05:39 15 ML Methylprednisolone Sodium Succinate 125 mg ONCE ONCE IVP 12/15/18 05:00 12/15/18 05:01 DC 12/15/18 05:39 125 MG Sodium Chloride 100 ml ONCE ONCE IV 12/15/18 05:15 12/15/18 05:16 DC 12/15/18 05:44 80 ML Vital Signs/I&O 12/15/18 12/15/18 01:03 01:55 Temp 36.5 Pulse 85 Resp 25 B/P (MAP) 160/107 (124) Pulse Ox 100 100 O2 Delivery OxyMask Room Air O2 Flow Rate 10.00 Progress Progress Note #1: Time: 01:50 Progress Note Hour-long DuoNeb. Her wheezing is improving. Her ABG is okay on the DuoNeb nebulized. Toradol for abdominal pain. Urinalysis and lab including a lipase. Progress Note #2: Time: 04:51 Progress Note Patient is feeling much better. She's gotten up to the bathroom several times. her wheezing is much improved. her any give her some solu-medrol and offer her observation stay for her asthma versus trialing outpatient steroids. she would prefer to go home. her pain is much better after the toradol. plan to give her a gi cocktail next and if that helps we'll put her out on antacids if it doesn't then we'll have her follow-up with primary care to have her gallbladder examined. Diagnostic Imaging Diagonstic Imaging: CT (with IV contrast) Plain Films/CT/US/NM/MRI: abdomen, pelvis Comments No acute process within the abdomen or pelvis. appearance of the uterus without complication. Reviewed: Reviewed Night Cliff Study, Reviewed by Me Diagonstic Imaging: Xray Plain Films/CT/US/NM/MRI: chest (1v) Comments NAME: JUDY DEVLIN [facility] REC#: [id number] PT STATUS: REG ER : 1985 PHYSICIAN: APRIL FONSECA MD ADMIT DATE: 12/15/18/ER Draft Date of Exam:12/15/18 CHEST 1 VIEW, AP/PA ONLY INDICATION: Abdominal pain and difficulty breathing PA view of the chest obtained with comparison made to the study of 06/14/2018. FINDINGS: Heart size and pulmonary vascularity are within normal limits, and the lungs are clear, bilaterally. IMPRESSION: Unremarkable chest. Dictated on workstation # [id number] Dict: 12/15/18 0505 Trans: 12/15/18 0517 ELDON [id number] Interpreted by: JUDITH NJ MD Electronically signed by: Reviewed: Reviewed by Me Departure Impression Primary Impression: Asthma attack Qualified Codes: J45.901 - Unspecified asthma with (acute) exacerbation Additional Impressions: Epigastric abdominal pain pain Disposition: HOME, SELF-CARE Condition: Stable Departure-Patient Inst. Decision time for Depature: 05:50 Referrals: BRINA CM MD (PCP/Family) Primary Care Physician Patient Instructions: Asthma, Adult (DC) Add. Discharge Instructions: Take the prednisone 2 tablets twice a day for the next 5 days. Do not breast-feed for the first 4 hours after each dose. Otherwise it's safe to breast-feed while on prednisone. Follow-up primary care later this week for reexamination of your asthma. Discuss with your primary care doctor sources of your epigastric pain and whether an ultrasound of your gallbladder might be Helpful. Omeprazole 40 mg daily for the next 2 weeks. All discharge instructions reviewed with patient and/or family. Voiced understanding. Scripts Omeprazole (Omeprazole) 40 Mg Capsule.dr 40 MG PO DAILY for 14 Days, #14 CAP 0 Refills Prov: APRIL FONSECA 12/15/18 Prednisone (Prednisone) 20 Mg Tab 40 MG PO BID for 5 Days, #20 TAB 0 Refills Prov: APRIL FONSECA 12/15/18 APRIL FONSECA Dec 15, 2018 01:46
[2018-12-15] MEDS ORDERED: NS IV 1000 ML 1,000 ML ONE (01:49)
[2018-12-15] MEDS ORDERED: KETOROLAC 30 MG/ML VIAL ONE (01:49)
[2018-12-15 01:54] LABS: INR 1.1 (0.8-1.4); PROTHROMBIN TIME PATIENT 14.1 SEC (12.2-14.7)
[2018-12-15 02:01] LABS: ALANINE AMINOTRANSFERASE 26 U/L (0-55); ALBUMIN 3.3 GM/DL (3.2-4.5); ALKALINE PHOSPHATASE 99 U/L (40-136); BILIRUBIN,TOTAL 0.3 MG/DL (0.1-1.0); BUN/CREATININE RATIO 24; CALCIUM 9.3 MG/DL (8.5-10.1); CARBON DIOXIDE 24 MMOL/L (21-32); CHLORIDE 106 MMOL/L (98-107); GFR ESTIMATED > 60; GLUCOSE 79 MG/DL (70-105); LIPASE 38 U/L (8-78); POTASSIUM 3.8 MMOL/L (3.6-5.0); SODIUM 141 MMOL/L (135-145)
[2018-12-15 04:28] LABS: BILIRUBIN,URINE NEGATIVE (NEGATIVE); CLARITY,URINE CLEAR; COLOR,URINE YELLOW; GLUCOSE, URINE (UA) NEGATIVE (NEGATIVE); KETONES,URINE NEGATIVE (NEGATIVE); LEUKOCYTE ESTERASE ,URINE 1+ (NEGATIVE); NITRITE,URINE NEGATIVE (NEGATIVE); PH,URINE 5 (5-9); PROTEIN,URINE NEGATIVE (NEGATIVE); UROBILINOGEN,URINE NORMAL (NORMAL)
[2018-12-15 04:42] LABS: BACTERIA,URINE FEW /HPF; RBC,URINE 0-2 /HPF; WBC,URINE 0-2 /HPF
[2018-12-15] MEDS ORDERED: FAMOTIDINE 20MG/2ML IV (PEPCID) IV STA (04:52)
[2018-12-15] MEDS ORDERED: methylPREDNISolone 125 MG (Solu-MEDROL) VIAL IVP ONE (05:00)
[2018-12-15] MEDS ORDERED: ANTACID SUSP 30 ML UDC (MYLANTA) PO ONE (05:00)
[2018-12-15] MEDS ORDERED: LIDOCAINE 2% VISCOUS 15 ML UDC PO ONE (05:00)
[2018-12-15] MEDS ORDERED: HOLD METFORMIN - RECEIVED CONTRAST 20 ML VIAL IV SCH (05:15)
[2018-12-15] MEDS ORDERED: IOHEXOL 350 MG/ML 100 ML (OMNIPAQUE 350) VIAL IV ONE (05:15)
[2018-12-15] MEDS ORDERED: NS 100 ML (IVPB) BAG IV ONE (05:15)
--- NOTE | 2018-12-15 05:18 | Diagnostic Imaging Report ---
INDICATION: Abdominal pain and difficulty breathing PA view of the chest obtained with comparison made to the study of 06/14/2018. FINDINGS: Heart size and pulmonary vascularity are within normal limits, and the lungs are clear, bilaterally. IMPRESSION: Unremarkable chest. Dictated by: Dictated on workstation # [id number]
[2018-12-15] MEDS ORDERED: PRD20T PO (05:35)
[2018-12-15] MEDS ORDERED: OMEP40CA36 PO (05:51)
[2018-12-15 06:05] VITALS: BP 138/66
--- NOTE | 2018-12-15 06:26 | Diagnostic Imaging Report ---
PROCEDURE: CT abdomen and pelvis with contrast. TECHNIQUE: Multiple contiguous axial images were obtained through the abdomen and pelvis after administration of intravenous contrast. Auto Exposure Controls were utilized during the CT exam to meet ALARA standards for radiation dose reduction. INDICATION: Abdominal pain and cramping There is small amount of bilateral pleural fluid with slight dependent atelectasis. No focal hepatic, gallbladder, pancreatic or splenic abnormalities identified. There is no evidence of adrenal gland or renal lesion. No free fluid is seen within the abdomen. Note is made of enlarged uterus without evidence of contrast extravasation to indicate hemorrhage. Edema and/or inflammation is seen along the anterior abdominal wall to level of the umbilicus without evidence of focal fluid collection. No bladder disruption is seen. IMPRESSION: Prominent uterus without acute intra-abdominal or pelvic abnormality identified. There are small bilateral pleural effusions with edema and/or inflammation along the anterior abdominal wall at the level of the umbilicus. Dictated by: Dictated on workstation # [id number]
== END 2018-12-15 06:04 | disposition home or self-care (01) ==
LOC: EDUNIT# 01:30 → ER 01:31
DX: O99.53 Diseases of the respiratory system complicating the puerperium (principal); J45.901 Unspecified asthma with (acute) exacerbation; O99.89 Other specified diseases and conditions complicating pregnancy, childbirth and the puerperium; R10.13 Epigastric pain; O99.335 Smoking (tobacco) complicating the puerperium; F17.210 Nicotine dependence, cigarettes, uncomplicated; J44.9 Chronic obstructive pulmonary disease, unspecified; O16.5 Unspecified maternal hypertension, complicating the puerperium; O99.63 Diseases of the digestive system complicating the puerperium; K21.9 Gastro-esophageal reflux disease without esophagitis; O99.345 Other mental disorders complicating the puerperium; F32.9 Major depressive disorder, single episode, unspecified; O99.03 Anemia complicating the puerperium; O99.215 Obesity complicating the puerperium; E66.01 Morbid (severe) obesity due to excess calories; Z68.43 Body mass index [BMI] 50.0-59.9, adult; Z82.49 Family history of ischemic heart disease and other diseases of the circulatory system; Z80.3 Family history of malignant neoplasm of breast
CPT/HCPCS: 36415; 71045; 74177; 80053; 81000; 82805; 83690; 84484; 85025; 85610; 85730; 86141; 93005; 94640; 96361; 96374; 96375

== ENCOUNTER → 2018-12-18 | Outpatient (CLI) | payer MEDICAID ==
[~2018-12-18] MED LIST changes: +OMEP40CA36 PO
[2018-12-18 13:35] LABS: BASOPHILS % (AUTO) 0 % (0-10); EOSINOPHILS # (AUTO) 0.1 10^3/uL (0.0-0.3); EOSINOPHILS % (AUTO) 1 % (0-10); HEMATOCRIT 36 % (35-52); LYMPHOCYTES # (AUTO) 2.8 X 10^3 (1.0-4.0); LYMPHOCYTES % (AUTO) 25 % (12-44); MEAN CORPUSCULAR HEMOGLOBIN 26 PG (25-34); MEAN CORPUSCULAR HGB CONC 31 G/DL (32-36); MEAN CORPUSCULAR VOLUME 83 FL (80-99); MEAN PLATELET VOLUME 9.1 FL (7.4-10.4); MONOCYTES # (AUTO) 1.1 X 10^3 (0.0-1.0); MONOCYTES % (AUTO) 10 % (0-12); NEUTROPHILS # (AUTO) 7.3 X 10^3 (1.8-7.8); NEUTROPHILS % (AUTO) 64 % (42-75); PLATELET COUNT 356 10^3/uL (130-400); RED CELL DISTRIBUTION WIDTH 14.5 % (10.0-14.5); WHITE BLOOD COUNT 11.4 10^3/uL (4.3-11.0)
[2018-12-18 13:58] LABS: ALANINE AMINOTRANSFERASE 34 U/L (0-55); ALBUMIN 3.4 GM/DL (3.2-4.5); ALKALINE PHOSPHATASE 100 U/L (40-136); BILIRUBIN,TOTAL 0.4 MG/DL (0.1-1.0); BUN/CREATININE RATIO 19; CALCIUM 8.9 MG/DL (8.5-10.1); CARBON DIOXIDE 27 MMOL/L (21-32); CHLORIDE 109 MMOL/L (98-107); CREATININE SERUM 0.79 MG/DL (0.60-1.30); GFR ESTIMATED > 60; GLUCOSE 95 MG/DL (70-105); POTASSIUM 3.5 MMOL/L (3.6-5.0); SODIUM 143 MMOL/L (135-145); TOTAL PROTEIN 6.4 GM/DL (6.4-8.2)
== END ==
LOC: LAB 13:20
PROVIDERS: ATTEND Family Medicine
DX: O14.95 Unspecified pre-eclampsia, complicating the puerperium (principal); Z3A.00 Weeks of gestation of pregnancy not specified
CPT/HCPCS: 36415; 80053; 82570; 83615; 84156; 84550; 85025

== ENCOUNTER 2019-04-06 14:15 | Emergency (ER) | payer MEDICAID ==
[~2019-04-06] VITALS: Ht 182.8 cm; Wt 184.6 kg
[~2019-04-06 14:15] MED LIST changes: +OMEP40CA27 PO; -OMEP40CA36 PO
[2019-04-06] MEDS ORDERED: fentaNYL INJECTION 100 MCG/2 ML AMP IVP ONE (15:00)
[2019-04-06 15:12] LABS: BASOPHILS # (AUTO) 0.1 10^3/uL (0.0-0.1); BASOPHILS % (AUTO) 1 % (0-10); EOSINOPHILS # (AUTO) 0.3 10^3/uL (0.0-0.3); EOSINOPHILS % (AUTO) 3 % (0-10); HEMATOCRIT 41 % (35-52); HEMOGLOBIN 12.4 G/DL (11.5-16.0); LYMPHOCYTES # (AUTO) 2.2 X 10^3 (1.0-4.0); LYMPHOCYTES % (AUTO) 24 % (12-44); MEAN CORPUSCULAR HEMOGLOBIN 26 PG (25-34); MEAN CORPUSCULAR HGB CONC 30 G/DL (32-36); MEAN CORPUSCULAR VOLUME 85 FL (80-99); MEAN PLATELET VOLUME 8.9 FL (7.4-10.4); MONOCYTES # (AUTO) 0.5 X 10^3 (0.0-1.0); MONOCYTES % (AUTO) 6 % (0-12); NEUTROPHILS # (AUTO) 6.2 X 10^3 (1.8-7.8); NEUTROPHILS % (AUTO) 67 % (42-75); PLATELET COUNT 381 10^3/uL (130-400); RED CELL DISTRIBUTION WIDTH 14.1 % (10.0-14.5); WHITE BLOOD COUNT 9.3 10^3/uL (4.3-11.0)
[2019-04-06 15:16] LABS: BILIRUBIN,URINE NEGATIVE (NEGATIVE); CLARITY,URINE CLEAR; COLOR,URINE YELLOW; GLUCOSE, URINE (UA) NEGATIVE (NEGATIVE); KETONES,URINE NEGATIVE (NEGATIVE); LEUKOCYTE ESTERASE ,URINE NEGATIVE (NEGATIVE); NITRITE,URINE NEGATIVE (NEGATIVE); PROTEIN,URINE NEGATIVE (NEGATIVE)
[2019-04-06 15:30] LABS: ALANINE AMINOTRANSFERASE 21 U/L (0-55); ALBUMIN 3.7 GM/DL (3.2-4.5); ALKALINE PHOSPHATASE 93 U/L (40-136); BILIRUBIN,TOTAL 0.1 MG/DL (0.1-1.0); BUN/CREATININE RATIO 13; CALCIUM 9.2 MG/DL (8.5-10.1); CARBON DIOXIDE 28 MMOL/L (21-32); CHLORIDE 107 MMOL/L (98-107); CREATININE SERUM 0.83 MG/DL (0.60-1.30); GFR ESTIMATED > 60; GLUCOSE 105 MG/DL (70-105); LIPASE 62 U/L (8-78); POTASSIUM 3.9 MMOL/L (3.6-5.0); SODIUM 143 MMOL/L (135-145); TOTAL PROTEIN 6.7 GM/DL (6.4-8.2)
[2019-04-06 15:32] LABS: BACTERIA,URINE TRACE /HPF
--- NOTE | 2019-04-06 15:57 | Diagnostic Imaging Report ---
PROCEDURE: US Gallbladder. TECHNIQUE: Multiple real-time grayscale images were obtained over the right upper quadrant in various projections. INDICATION: Abdominal pain. FINDINGS: Liver parenchyma is homogeneous with normal echotexture. The gallbladder is contracted. There are no appreciable calculi or sludge. Common duct is not dilated. The pancreas is obscured by bowel gas. Aorta and IVC appear normal. Right kidney measures 13 cm in length and appears normal. There is no ascites. IMPRESSION: Contracted gallbladder. Dictated by: Dictated on workstation # [id number]
[2019-04-06] MEDS ORDERED: FAMOTIDINE 20MG/2ML IV (PEPCID) IVP ONE (16:30)
[2019-04-06] MEDS ORDERED: LIDOCAINE 2% VISCOUS 15 ML UDC PO ONE (16:30)
[2019-04-06] MEDS ORDERED: ANTACID SUSP 30 ML UDC (MYLANTA) PO ONE (16:30)
[2019-04-06] MEDS ORDERED: ONDANSETRON 4 MG/2 ML (SDV) Z0FRAN IVP ONE (16:30)
--- NOTE | 2019-04-06 17:04 | NUR ---
Pt reports pain of 1-2/[address] Colin notified.
--- NOTE | 2019-04-06 17:36 | ED Abdominal Pain ---
General Chief Complaint: Abdominal/GI Problems Stated Complaint: ABD PAIN Nursing Triage Note: PT C/O SUDDEN ONSET ABDOMINAL PAIN THAT PT DESCRIBES "PULLING" PT REPORTS NORMAL BM Sepsis Screen: No Definite Risk Source of Information: Patient Exam Limitations: No Limitations History of Present Illness Date Seen by Provider: Apr 06, 2019 Time Seen by Provider: 14:43 Initial Comments This 34-year-old woman presents to the emergency room with complaints of central abdominal pain roughly just superior to the umbilicus that started about one hour prior to arrival abruptly. She denies any nausea, vomiting, diarrhea, or constipation. LMP was one week ago. She had the Mirena placed in January. She has had one prior episode of similar pain to a lesser extent. Bowel movements have been normal. Allergies and Home Medications Allergies Coded Allergies: No Known Drug Allergies (Unverified , 10/20/12) Home Medications Albuterol 8.5 Gm Hfa.aer.ad, 8.5 GM IH Q2, (Reported) 2 PUFFS Beclomethasone Dipropionate 8.7 Gm Aer.w.adap, 8.7 GM IH BID Prescribed by: BETTINA ZAVALA on 09/18/17 1540 Ibuprofen 600 Mg Tablet, 600 MG PO Q6H Prescribed by: BRINA CM on 10/18/17 0948 Ibuprofen 600 Mg Tablet, 600 MG PO Q6H Prescribed by: TOÑO BONILLA on 12/12/18 0813 Ipratropium/Albuterol Sulfate 3 Ml Ampul.neb, 3 ML IH Q6H PRN for SHORTNESS OF B REATH Prescribed by: BETTINA ZAVALA on 09/18/17 1540 Omeprazole 40 Mg Capsule.dr, 40 MG PO DAILY Prescribed by: APRIL FONSECA on 12/15/18 0551 Omeprazole 20 Mg Tablet.dr, 20 MG PO BID Prescribed by: SHEILA WALTERS on 04/06/19 1741 Pnv No.122/Iron/Folic Acid 1 Each Tablet, 1 EACH PO DAILY Prescribed by: BRETT HASSAN on 04/27/18 2151 Prednisone 20 Mg Tab, 40 MG PO BID Prescribed by: APRIL FONSECA on 12/15/18 0535 Patient Home Medication List Home Medication List Reviewed: Yes Review of Systems Review of Systems Constitutional: no symptoms reported EENTM: No Symptoms Reported Respiratory: No Symptoms Reported Cardiovascular: No Symptoms Reported Gastrointestinal: See HPI Genitourinary: No Symptoms Reported Musculoskeletal: no symptoms reported Skin: no symptoms reported Psychiatric/Neurological: No Symptoms Reported Endocrine: No Symptoms Reported Hematologic/Lymphatic: No Symptoms Reported Past Dugbtug-Gbchgt-Mjogbo Hx Past Med/Social Hx: Reviewed Nursing Past Med/Soc Hx Patient Social History Alcohol Use: Denies Use Number of Drinks Today: AA Alcohol Beverage of Choice: Beer Recreational Drug Use: Yes Drug of Choice: MARIJUANA Smoking Status: Current Everyday Smoker Type Used: Cigarettes 2nd Hand Smoke Exposure: Yes Recent Foreign Travel: No Contact w/Someone Who Travel: No Recent Infectious Disease Expo: No Recent Hopitalizations: No Immunizations Up To Date Tetanus Booster (TDap): Less than 5yrs PED Vaccines UTD: Yes Seasonal Allergies Seasonal Allergies: Yes Past Medical History Surgeries: Yes (wisdom teeth,surgery on intestines as an , exploratory abdominal surg) Abdominal Respiratory: Yes Asthma, COPD Currently Using CPAP: No Currently Using BIPAP: No Cardiac: Yes (HTN--DOES NOT TAKE MEDICATIONS) Hypertension Neurological: No : No Last Menstrual Period: Mar 30, 2019 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 Disorders: No 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, Ovarian Cyst Sexually Transmitted Disease: Yes (HERPES, 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 ) HIV/AIDS: No Genitourinary: Yes UTI-Chronic Gastrointestinal: Yes Gastroesophageal Reflux, Hemorrhoids Musculoskeletal: No Endocrine: Yes (MORBID OBESITY) HEENT: No Loss of Vision: Denies Hearing Impairment: Denies Cancer: No Psychosocial: Yes Depression Integumentary: Yes Herpes Blood Disorders: Yes (ANEMIA) Adverse Reaction/Blood Tranf: No Family Medical History Asthma 19 FATHER G8 BROTHER Completed stroke MATERNAL GRANDFATHER Diabetes mellitus 19 FATHER 19 MOTHER Drug abuse 19 FATHER G8 BROTHER G8 BROTHER G8 BROTHER FH: breast cancer MATERNAL GRANDMOTHE ( AGE 72) Headache disorder G8 SISTER Hypertension 19 MOTHER G8 BROTHER Psychosocial problem G8 BROTHER Seizure disorder MATERNAL GRANDMOTHE Physical Exam Vital Signs Vital Signs - First Documented 04/06/19 14:35 Temp 36.8 Pulse 86 Resp 22 B/P (MAP) 163/112 (129) Pulse Ox 99 O2 Delivery Room Air Capillary Refill : Less Than 3 Seconds Height/Weight/BMI Height: 5'11.00" Weight: 362lbs. 0.8oz. 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 tested, no motor/sensory deficits, alert, normal mood/affect, oriented x 3 Skin: normal color, warm/dry Exam Comments Exam obscured by body habitus Progress/Results/Core Measures Results/Orders Lab Results Laboratory Tests Test 04/06/19 14:37 04/06/19 15:00 Range/Units Urine Color YELLOW Urine Clarity CLEAR Urine pH 6.0 5-9 Urine Specific Oliver 1.020 1.016-1.022 Urine Protein NEGATIVE NEGATIVE Urine Glucose (UA) NEGATIVE NEGATIVE Urine Ketones NEGATIVE NEGATIVE Urine Nitrite NEGATIVE NEGATIVE Urine Bilirubin NEGATIVE NEGATIVE Urine Urobilinogen 0.2 < = 1.0 MG/DL Urine Leukocyte Esterase NEGATIVE NEGATIVE Urine RBC (Auto) 1+ H NEGATIVE Urine RBC NONE /HPF Urine WBC NONE /HPF Urine Crystals NONE /LPF Urine Bacteria TRACE /HPF Urine Casts NONE /LPF Urine Mucus NEGATIVE /LPF Urine Culture Indicated NO White Blood Count 9.3 4.3-11.0 10^3/uL Red Blood Count 4.85 4.35-5.85 10^6/uL Hemoglobin 12.4 11.5-16.0 G/DL Hematocrit 41 35-52 % Mean Corpuscular Volume 85 80-99 FL Mean Corpuscular Hemoglobin 26 25-34 PG Mean Corpuscular Hemoglobin Concent 30 L 32-36 G/DL Red Cell Distribution Width 14.1 10.0-14.5 % Platelet Count 381 130-400 10^3/uL Mean Platelet Volume 8.9 7.4-10.4 FL Neutrophils (%) (Auto) 67 42-75 % Lymphocytes (%) (Auto) 24 12-44 % Monocytes (%) (Auto) 6 0-12 % Eosinophils (%) (Auto) 3 0-10 % Basophils (%) (Auto) 1 0-10 % Neutrophils # (Auto) 6.2 1.8-7.8 X 10^3 Lymphocytes # (Auto) 2.2 1.0-4.0 X 10^3 Monocytes # (Auto) 0.5 0.0-1.0 X 10^3 Eosinophils # (Auto) 0.3 0.0-0.3 10^3/uL Basophils # (Auto) 0.1 0.0-0.1 10^3/uL Sodium Level 143 135-145 MMOL/L Potassium Level 3.9 3.6-5.0 MMOL/L Chloride Level 107 98-107 MMOL/L Carbon Dioxide Level 28 21-32 MMOL/L Anion Gap 8 5-14 MMOL/L Blood Urea Nitrogen 11 7-18 MG/DL Creatinine 0.83 0.60-1.30 MG/DL Estimat Glomerular Filtration Rate > 60 BUN/Creatinine Ratio 13 Glucose Level 105 70-105 MG/DL Calcium Level 9.2 8.5-10.1 MG/DL Corrected Calcium 9.4 8.5-10.1 MG/DL Total Bilirubin 0.1 0.1-1.0 MG/DL Aspartate Amino Transf (AST/SGOT) 15 5-34 U/L Alanine Aminotransferase (ALT/SGPT) 21 0-55 U/L Alkaline Phosphatase 93 40-136 U/L C-Reactive Protein High Sensitivity 1.31 H 0.00-0.50 MG/DL Total Protein 6.7 6.4-8.2 GM/DL Albumin 3.7 3.2-4.5 GM/DL Lipase 62 8-78 U/L Serum Test, Qualitative NEGATIVE NEGATIVE My Orders Orders - SHEILA PICKENS MD Ua Culture If Indicated (04/06/19 14:27) Urine Bedside (04/06/19 14:27) Cbc With Automated Diff (04/06/19 14:51) Comprehensive Metabolic Panel (04/06/19 14:51) Hs C Reactive Protein (04/06/19 14:51) Hcg,Qualitative Serum (04/06/19 14:51) Lipase (04/06/19 14:51) Ed Iv/Invasive Line Start (04/06/19 14:51) Fentanyl Injection (Sublimaze Injection (04/06/19 15:00) Us Gallbladder 12029 (04/06/19 14:52) Ondansetron Injection (Zofran Injectio (04/06/19 16:30) Lidocaine 2% Viscous 15 Ml (Xylocaine Vi (04/06/19 16:30) Antacid Suspension (Mylanta Suspension (04/06/19 16:30) Famotidine Injection (Pepcid Injection) (04/06/19 16:30) Iv Push Packing Supervisor Ed (04/06/19 ) Medications Given in ED Vital Signs/I&O 04/06/19 04/06/19 14:35 17:43 Temp 36.8 Pulse 86 84 Resp 22 22 B/P (MAP) 163/112 (129) 162/88 (129) Pulse Ox 99 99 O2 Delivery Room Air Blood Pressure Mean: 129 Progress Progress Note : Progress Note Patient was initially treated with fentanyl. Workup was unremarkable. Patient was later treated with Pepcid, Zofran, and GI cocktail. Pain did not return and she was dismissed pain-free. Departure Impression Primary Impression: Central abdominal pain Disposition: HOME, SELF-CARE Condition: Improved Departure-Patient Inst. Decision time for Depature: 17:30 Referrals: BRINA CM MD (PCP/Family) Primary Care Physician Patient Instructions: Acute Abdomen (Belly Pain), Adult (DC) Add. Discharge Instructions: The exact cause of your abdominal pain is uncertain at this time. Start with a clear liquid diet and gradually advance your diet with small quantities of bland food as tolerated. Please see your primary care provider as soon as possible. You may need further evaluation for your abdominal pain such as endoscopy (scoping of the stomach an d/or colon) or further imaging such as a hepatobiliary (HIDA) scan. These can be arranged in the outpatient setting. In the meantime, avoid the following: Eating large meals, eating close to bedtime, fatty or greasy/oily foods, caffeine, chocolate, carbonation, citrus fruits or juices, tomato products, alcohol, nicotine, mints, spicy foods, NSAID medications such as ibuprofen or naproxen, or anything else you know irritates your stomach. Take omeprazole as prescribed for the next 2 weeks. Continue even if you're feeling better. Return to the emergency room if you have significant exacerbation of your symptoms or develop new symptoms such as fever, bloody stools, vomiting, etc. All discharge instructions reviewed with patient and/or family. Voiced under standing. Scripts Omeprazole (Omeprazole) 20 Mg Tablet. 20 MG PO BID, #20 TAB Prov: SHEILA PICKENS MD 04/06/19 Copy Copies To 1: BRINA CM MD, JOSHUA T MD Apr 06, 2019 17:36
[2019-04-06] MEDS ORDERED: OMEP20TA7 PO (17:41)
[2019-04-06 17:43] VITALS: BP 162/88
== END 2019-04-06 17:46 | disposition home or self-care (01) ==
LOC: EDUNIT# 14:15 → ER 14:16
DX: R10.9 Unspecified abdominal pain (principal); J44.9 Chronic obstructive pulmonary disease, unspecified; I10 Essential (primary) hypertension; F32.9 Major depressive disorder, single episode, unspecified; E66.01 Morbid (severe) obesity due to excess calories; D64.9 Anemia, unspecified; K21.9 Gastro-esophageal reflux disease without esophagitis; F17.210 Nicotine dependence, cigarettes, uncomplicated; Z79.52 Long term (current) use of systemic steroids; Z87.440 Personal history of urinary (tract) infections; Z68.43 Body mass index [BMI] 50.0-59.9, adult; Z82.49 Family history of ischemic heart disease and other diseases of the circulatory system; Z80.3 Family history of malignant neoplasm of breast
CPT/HCPCS: 36415; 76705; 80053; 81000; 83690; 84703; 85025; 86141; 96374; 96375

== ENCOUNTER 2019-06-21 22:48 | Emergency (ER) | payer MEDICAID ==
[~2019-06-21] VITALS: Ht 180.3 cm; Wt 181.0 kg
[~2019-06-21 22:48] MED LIST changes: +OMEP20TA7 PO
--- OUTSIDE RECORDS SUMMARY | 2019-06-21 22:54 | XMS REPORT ---
Author Author Christine CM Organization [facility] Address [address] [place] [address] Care Team Providers Care Brick Dropper Name Role Phone BRINA CM Unavailable PROBLEMS Type Condition ICD9-CM Code EUK57-JV Code Onset Dates Condition S tatus SNOMED Code Problem Morbid (severe) obesity due to excess calories E66 .01 Active 925003495 Problem Chronic obstructive pulmonary disease, unspecified COPD ty pe J44.9 Active 47347539 Problem Chronic bronchitis, unspecified chronic bronchitis type J42 Active 98714506 Problem Essential hypertension I10 Active 17595542 Problem Seasonal allergies J30.2 Active 4 30651710 Problem Excessive and frequent menstruation with irregular cycle N92.1 Active 81868437 Problem Moderate persistent asthma with exacerbation J45.4 1 Active 916432022 Problem Gastro-esophageal reflux disease without esophagitis K21.9 Active 154745126 Problem COPD with acute exacerbation J44.1 A ctive 669857271 Problem BMI 50.0-59.9, adult Z68.43 Active 912011829 Problem Other secondary hypertension I15.8 A ctive [id number] ALLERGIES No Known Allergies ENCOUNTERS Encounter Location Date Diagnosis [facility] [id number] [place] [address] Apr, [facility] [address] [id number] [place] [address] Apr, Acute non-recurrent ethmoidal sinusitis J01.20 ; Chronic obstructive pulmonary disease, unspecified COPD type J44.9 ; Moderate persistent asthma with exacerbation J45.41 ; Tobacco abuse Z72.0 and Vaginal yeast infection B37.3 [facility] [address] [facility] [id number] [place] [address] Mar, Cough R05 and Influenza-like illness R69 [facility] [address] [address] 16 Mar, 2019 Chronic obstructive pulmonary disease, u nspecified COPD type J44.9 [place] [address] [address] 15 Mar, 2019 Chronic obstructive pulmonary disease, u nspecified COPD type J44.9 ; Moderate persistent asthma with exacerbation J45.41 and BMI 50.0-59.9, adult Z68.43 [place] [address] [address] 14 Mar, 2019 [place] [address] [address] 10 Mar, 2019 [place] [address] [address] Feb, IUD (intrauterine device) in place Z97.5 and Screen for STD (sexually transmitted disease) Z11.3 [place] [address] [address] Feb, [place] [address] [address] 05 Feb, 2019 Chlamydia infection A74.9 ; Excessive an d frequent menstruation with irregular cycle N92.1 and Presence of (intrauterine) contraceptive device Z97.5 [place] [address] [address] 05 Feb, 2019 [place] [address] [address] 14 Jan, 2019 care and examination Z39.2 ; control counseling Z30.09 ; Encounter for IUD insertion Z30.430 ; BMI 50.0-59.9, adult Z68.43 ; Essential hypertension I10 and Screen for STD (sexually transmitted disease) Z11.3 [place] [address] [address] 07 Jan, 2019 [place] [address] [address] Dec, [place] [address] [address] Dec, [place] [address] [address] Dec, [place] [address] [address] Dec, Moderate persistent asthma with exacerba tion J45.41 ; BMI 50.0-59.9, adult Z68.43 and Other secondary hypertension I15.8 [place] [address] [address] Dec, [place] [address] [address] Dec, [place] [address] [address] Dec, Pre-eclampsia affecting puerperium O14.9 5 ; Swelling of lower extremity M79.89 and BMI 50.0-59.9, adult Z68.43 [place] [address] [address] Dec, [place] [address] [address] Nov, Third trimester Z34.93 ; 38 we eks gestation of Z3A.38 ; Obesity affecting in third trimester O99.213 ; BMI 45.0-49.9, adult Z68.42 and COPD with acute exacerbation J44.1 [place] [address] [address] Nov, Decreased movement affecting pregn ian, antepartum O36.[address] [address] Nov, Third trimester Z34.93 ; 37 we eks gestation of Z3A.37 ; Obesity affecting in third trimester O99.213 ; Other viral diseases complicating , third trimester O98.513 and Herpesviral infection, unspecified B00.[address] [place] [address] 13 Nov, 2018 Third trimester Z34.93 and Dec reased movements in third trimester, single or unspecified fetus O36.8130 [place] [address] [address] Nov, [place] [address] [address] Nov, Third trimester Z34.93 ; 36 we eks gestation of Z3A.36 and Obesity affecting in third trimester O99.213 [place] [address] [address] Nov, [place] [address] [address] Nov, care in third trimester Z34.93 ; COPD with acute exacerbation J44.1 and 35 weeks gestation of Z3A.35 [place] [address] [address] Oct, Morbid obesity E66.01 ; Acute cystitis d uring in third trimester O23.13 ; Third trimester Z34.93 and History of chlamydia infection Z86.19 [place] [address] [address] Oct, [place] [address] [address] Oct, care in third trimester Z34.93 ; 32 weeks gestation of Z3A.32 ; Morbid obesity E66.01 ; Gastro-esophageal reflux disease without esophagitis K21.9 ; Diseases of the digestive system complicating , third trimester O99.613 ; History of herpes genitalis Z86.19 ; Encounter for immunization Z23 and Obesity affecting in third trimester O99.213 [place] [address] [address] Sep, [facility] [address] [facility] [id number] [address] [place] [address] Sep, Allergic conjunctivitis of r ight eye H10.11 ; Hordeolum internum of right upper eyelid H00.021 and Morbid obesity E66.01 [place] [address] [address] 10 Sep, 2018 Dental examination Z01.20 [place] [address] [address] Sep, Third trimester Z34.93 ; 27 we eks gestation of Z3A.27 ; Morbid obesity E66.01 and Obesity affecting in second trimester O99.212 [place] [address] [address] Sep, [place] [address] [address] Sep, 18 weeks gestation of Z3A.18 ; Obesity affecting in second trimester O99.212 ; Other specified related conditions, second trimester O26.892 and Other specified noninflammatory disorders of vagina N89.8 [place] [address] [address] Aug, [place] [address] [address] Aug, Second trimester Z34.92 ; 22 w eeks gestation of Z3A.22 ; Obesity affecting in second trimester O99.212 and Moderate persistent asthma with exacerbation J45.41 [place] [address] [address] July, [place] [address] [address] July, [place] [address] [address] July, Second trimester Z34.92 ; Obes ity affecting in second trimester O99.212 ; 18 weeks gestation of Z3A.18 ; Other specified related conditions, second trimester O26.892 ; Other specified noninflammatory disorders of vagina N89.8 and Chronic bronchitis, unspecified chronic bronchitis type J42 [place] [address] [address] July, [address] [address] July, 14 weeks gestation of Z3A.14 a nd Second trimester Z34.92 [place] [address] [address] 08 Jun, 2018 Second trimester Z34.92 ; 14 w eeks gestation of Z3A.14 ; Obesity affecting in second trimester O99.212 and Chronic obstructive pulmonary disease, unspecified COPD type J44.[address] [address] Jun, Moderate persistent asthma with exacerba tion J45.41 ; Morbid (severe) obesity due to excess calories E66.01 ; Shortness of breath R06.02 ; First trimester Z34.91 and 13 weeks gestation of Z3A.13 [place] [address] [address] Jun, [address] [address] May, Dental examination Z01.[address] [address] May, Obesity affecting in first tri mester O99.211 ; 12 weeks gestation of Z3A.12 ; Vaginal yeast infection B37.3 ; Moderate persistent asthma with exacerbation J45.41 ; Frequent headaches R51 ; Elevated blood pressure affecting in first trimester, antepartum O16.1 and Morbid obesity E66.[address] [address] May, Normal in multigravida Z34.80 ; 8 weeks gestation of Z3A.08 and Heart palpitations R00.[address] [address] May, Moderate persistent asthma with exacerba tion J45.[address] [address] 26 Apr, 2018 Normal in multigravida Z34.80 ; 8 weeks gestation of Z3A.08 ; Heart palpitations R00.2 ; Obesity affecting in first trimester O99.211 ; BMI 50.0-59.9, adult Z68.43 and Morbid obesity E66.[address] [address] Apr, Dizziness R42 ; Intractable vomiting wit h nausea, unspecified vomiting type R11.2 ; Morbid (severe) obesity due to excess calories E66.01 ; First trimester Z34.91 ; History of pre-eclampsia Z87.59 and Morbid obesity E66.[address] [address] 12 Apr, [address] [address] Mar, Moderate persistent asthma with exacerba tion J45.41 and BMI 45.0-49.9, adult Z68.42 [facility] [address] [place], [place] [id number] [address] [place] [address] Mar, Sinusitis J32.9 ; Cerumen im paction H61.20 and BMI 50.0- 59.9, adult Z68.[address] [address] Dec, care and examination Z39.2 ; Moderate persistent asthma with exacerbation J45.41 ; Vaginal discharge N89.8 and BMI 45.0-49.9, adult Z68.42 [facility] [address] [place], [place] [id number] [address] [place] [address] Dec, Seasonal allergies J30.[address] [address] Sep, [address] [address] Sep, [place] [address] [address] Sep, 36 weeks gestation of Z3A.36 ; Third trimester Z34.93 and Obesity affecting in third trimester O99.213 [place] [address] [address] Sep, BMI 45.0-49.9, adult Z68.42 ; Third trim ailin Z34.93 ; 35 weeks gestation of Z3A.35 ; Obesity affecting in third trimester O99.213 and Vaginal discharge N89.8 [place] [address] [address] Sep, [place] [address] [address] Sep, [place] [address] [address] Sep, Third trimester Z34.93 ; 34 we eks gestation of Z3A.34 ; Current with history of pre-term labor in third trimester O09.213 and Obesity affecting in third trimester O99.213 [place] [address] [address] Sep, [place] [address] [address] Sep, [facility] [address] [facility] [id number] [address] [place] [address] Aug, Acute maxillary sinusitis, r ecurrence not specified J01.00 ; Moderate persistent asthma with exacerbation J45.41 and Chest congestion R09.89 [place] [address] [address] 27 Aug, 2017 Third trimester Z34.93 ; 32 we eks gestation of Z3A.32 ; Obesity affecting in third trimester O99.213 and BMI 45.0- 49.9, adult Z68.42 [place] [address] [address] Aug, [place] [address] [address] Aug, 30 weeks gestation of Z3A.30 ; Third trimester Z34.93 ; Nausea/vomiting in O21.9 ; Marijuana use F12.90 ; Obesity affecting in third trimester O99.213 and Encounter for immunization Z23 [place] [address] [address] Aug, [place] [address] [address] July, [address] [address] July, Decreased movements in second trim ailin, single or unspecified fetus O36.8120 [place] [address] [address] July, Decreased movements in second trim ailin, single or unspecified fetus O36.8120 [place] [address] [address] July, [address] [address] July, Multigravida in second trimester Z34.82 ; 26 weeks gestation of Z3A.26 ; Moderate persistent asthma with exacerbation J45.41 and Obesity affecting in second trimester O99.212 [place] [address] [address] Jun, [place] [address] [address] Jun, Multigravida in second trimester Z34.82 ; Normal in multigravida Z34.80 ; 22 weeks gestation of Z3A.22 ; Obesity affecting in second trimester O99.212 ; Herpesviral infection, unspecified B00.9 and Other viral diseases complicating , second trimester O98.512 [place] [address] [address] Jun, IMMUNIZATIONS No Known Immunizations SOCIAL HISTORY Never Assessed REASON FOR VISIT mbelewMA- congestion/cough PLAN OF CARE Activity Details Follow Up 2 - 3 Days with [facility] if not improving Reason: VITAL SIGNS Height 71 in 2018-04-17 Temperature 97.6 degrees Fahrenheit 2018-04-17 Heart Rate 98 bpm 2018-04-17 Respiratory Rate 20 2018-04-17 Oximetry 100 % 2018-04-17 Blood pressure systolic 122 mmHg 2018-04-17 Blood pressure diastolic 78 mmHg 2018-04-17 MEDICATIONS Medication Instructions Dosage Frequency Start Date End Date Duration S tatus Ventolin HFA 108 (90 Base) MCG/ACT Inhalation every 6 hrs 2 puffs a s needed 6h 25 Active Advair Diskus 250-50 MCG/DOSE Inhalation Twice a day 1 puff 12h Dec, Active PredniSONE 50 MG Orally Once a day 1 tablet 24h Mar, 07 days Active Albuterol Sulfate (2.5 MG/3ML) 0.083% Inhalation Three times a day 3 ml as needed 8h Sep, Active Azithromycin 250 MG Orally Once a day 2 tablets on the fi rst day, then 1 tablet daily for 4 days 24h Mar, 5 day(s) Active PredniSONE 20 MG Orally Once a day 2 tablets 24h Mar, 5 days Not-Taking Ventolin HFA 108 (90 Base) MCG/ACT Inhalation every 6 hrs PRN for shortness of breath 2 puffs as needed 30 days Active Flovent HFA 110 MCG/ACT Inhalation Twice a day 1 puff 12h Sep, 2 018 Active RESULTS No Results PROCEDURES No Known procedures INSTRUCTIONS MEDICATIONS ADMINISTERED No Known Medications MEDICAL (GENERAL) HISTORY Type Description Date Medical History Preeclampsia history Medical History Asthma Medical History HSV 1&2 Medical History Hypertension Surgical History abdomen laparascopy Surgical History intestine surgery as infant Hospitalization History childbirth Hospitalization History [facility] for 09/2017
--- OUTSIDE RECORDS SUMMARY | 2019-06-21 22:54 | XMS REPORT ---
Author Author Christine CM Organization [facility] Address [address] [place] [address] Care Team Providers Care Cigar Maker Name Role Phone BRINA CM Unavailable PROBLEMS Type Condition ICD9-CM Code QKD69-LH Code Onset Dates Condition S tatus SNOMED Code Problem Morbid (severe) obesity due to excess calories E66 .01 Active 135641623 Problem Chronic obstructive pulmonary disease, unspecified COPD ty pe J44.9 Active 39033040 Problem Chronic bronchitis, unspecified chronic bronchitis type J42 Active 61696579 Problem Essential hypertension I10 Active 86114257 Problem Seasonal allergies J30.2 Active 4 45248251 Problem Excessive and frequent menstruation with irregular cycle N92.1 Active 43704189 Problem Moderate persistent asthma with exacerbation J45.4 1 Active 917256701 Problem Gastro-esophageal reflux disease without esophagitis K21.9 Active 755248073 Problem COPD with acute exacerbation J44.1 A ctive 159814535 Problem BMI 50.0-59.9, adult Z68.43 Active 449311782 Problem Other secondary hypertension I15.8 A ctive 35958282 ALLERGIES No Known Allergies ENCOUNTERS Encounter Location Date Diagnosis [facility] [id number] [place] [address] Apr, [facility] [address] [id number] [place] [address] Apr, Acute non-recurrent ethmoidal sinusitis J01.20 ; Chronic obstructive pulmonary disease, unspecified COPD type J44.9 ; Moderate persistent asthma with exacerbation J45.41 ; Tobacco abuse Z72.0 and Vaginal yeast infection B37.3 [facility] [address] [id number] [address] [place] [address] Mar, Cough R05 and Influenza-like illness R69 [facility] [address] [address] 16 Mar, 2019 Chronic obstructive pulmonary disease, u nspecified COPD type J44.9 [place] [address] [address] 15 Mar, 2019 Chronic obstructive pulmonary disease, u nspecified COPD type J44.9 ; Moderate persistent asthma with exacerbation J45.41 and BMI 50.0-59.9, adult Z68.43 [place] [address] [address] 14 Mar, 2019 [place] [address] [address] 10 Mar, 2019 [place] [address] [address] Feb, IUD (intrauterine device) in place Z97.5 and Screen for STD (sexually transmitted disease) Z11.3 [place] [address] [address] Feb, [place] [address] [address] 05 Feb, 2019 Chlamydia infection A74.9 ; Excessive an d frequent menstruation with irregular cycle N92.1 and Presence of (intrauterine) contraceptive device Z97.5 [place] [address] [address] 05 Feb, 2019 [place] [address] [address] 14 Jan, 2019 care and examination Z39.2 ; control counseling Z30.09 ; Encounter for IUD insertion Z30.430 ; BMI 50.0-59.9, adult Z68.43 ; Essential hypertension I10 and Screen for STD (sexually transmitted disease) Z11.3 [place] [address] [address] 07 Jan, 2019 [place] [address] [address] Dec, [place] [address] [address] Dec, [place] [address] [address] Dec, [place] [address] [address] Dec, Moderate persistent asthma with exacerba tion J45.41 ; BMI 50.0-59.9, adult Z68.43 and Other secondary hypertension I15.8 [place] [address] [address] Dec, [place] [address] [address] Dec, [place] [address] [address] Dec, Pre-eclampsia affecting puerperium O14.9 5 ; Swelling of lower extremity M79.89 and BMI 50.0-59.9, adult Z68.43 [place] [address] [address] Dec, [place] [address] [address] Nov, Third trimester Z34.93 ; 38 we eks gestation of Z3A.38 ; Obesity affecting in third trimester O99.213 ; BMI 45.0-49.9, adult Z68.42 and COPD with acute exacerbation J44.1 [place] [address] [address] Nov, Decreased movement affecting pregn ian, antepartum O36.[address] [address] Nov, Third trimester Z34.93 ; 37 we eks gestation of Z3A.37 ; Obesity affecting in third trimester O99.213 ; Other viral diseases complicating , third trimester O98.513 and Herpesviral infection, unspecified B00.[address] [place] [address] 13 Nov, 2018 Third trimester Z34.93 and Dec reased movements in third trimester, single or unspecified fetus O36.8130 [place] [address] [address] Nov, [place] [address] [address] Nov, Third trimester Z34.93 ; 36 we eks gestation of Z3A.36 and Obesity affecting in third trimester O99.213 [place] [address] [address] Nov, [place] [address] [address] Nov, care in third trimester Z34.93 ; COPD with acute exacerbation J44.1 and 35 weeks gestation of Z3A.35 [place] [address] [address] Oct, Morbid obesity E66.01 ; Acute cystitis d uring in third trimester O23.13 ; Third trimester Z34.93 and History of chlamydia infection Z86.19 [place] [address] [address] Oct, [place] [address] [address] Oct, care in third trimester Z34.93 ; 32 weeks gestation of Z3A.32 ; Morbid obesity E66.01 ; Gastro-esophageal reflux disease without esophagitis K21.9 ; Diseases of the digestive system complicating , third trimester O99.613 ; History of herpes genitalis Z86.19 ; Encounter for immunization Z23 and Obesity affecting in third trimester O99.213 [place] [address] [address] Sep, [facility] [address] [facility] [id number] [address] [place] [address] Sep, Allergic conjunctivitis of r ight eye H10.11 ; Hordeolum internum of right upper eyelid H00.021 and Morbid obesity E66.01 [place] [address] [address] 10 Sep, 2018 Dental examination Z01.20 [place] [address] [address] Sep, Third trimester Z34.93 ; 27 we eks gestation of Z3A.27 ; Morbid obesity E66.01 and Obesity affecting in second trimester O99.212 [place] [address] [address] Sep, [place] [address] [address] Sep, 18 weeks gestation of Z3A.18 ; Obesity affecting in second trimester O99.212 ; Other specified related conditions, second trimester O26.892 and Other specified noninflammatory disorders of vagina N89.8 [place] [address] [address] Aug, [place] [address] [address] Aug, Second trimester Z34.92 ; 22 w eeks gestation of Z3A.22 ; Obesity affecting in second trimester O99.212 and Moderate persistent asthma with exacerbation J45.41 [place] [address] [address] July, [place] [address] [address] July, [place] [address] [address] July, Second trimester Z34.92 ; Obes ity affecting in second trimester O99.212 ; 18 weeks gestation of Z3A.18 ; Other specified related conditions, second trimester O26.892 ; Other specified noninflammatory disorders of vagina N89.8 and Chronic bronchitis, unspecified chronic bronchitis type J42 [place] [address] [address] July, [address] [address] July, 14 weeks gestation of Z3A.14 a nd Second trimester Z34.92 [place] [address] [address] 08 Jun, 2018 Second trimester Z34.92 ; 14 w eeks gestation of Z3A.14 ; Obesity affecting in second trimester O99.212 and Chronic obstructive pulmonary disease, unspecified COPD type J44.[address] [address] Jun, Moderate persistent asthma with exacerba tion J45.41 ; Morbid (severe) obesity due to excess calories E66.01 ; Shortness of breath R06.02 ; First trimester Z34.91 and 13 weeks gestation of Z3A.13 [place] [address] [address] Jun, [address] [address] May, Dental examination Z01.[address] [address] May, Obesity affecting in first tri mester O99.211 ; 12 weeks gestation of Z3A.12 ; Vaginal yeast infection B37.3 ; Moderate persistent asthma with exacerbation J45.41 ; Frequent headaches R51 ; Elevated blood pressure affecting in first trimester, antepartum O16.1 and Morbid obesity E66.[address] [address] May, Normal in multigravida Z34.80 ; 8 weeks gestation of Z3A.08 and Heart palpitations R00.[address] [address] May, Moderate persistent asthma with exacerba tion J45.[address] [address] 26 Apr, 2018 Normal in multigravida Z34.80 ; 8 weeks gestation of Z3A.08 ; Heart palpitations R00.2 ; Obesity affecting in first trimester O99.211 ; BMI 50.0-59.9, adult Z68.43 and Morbid obesity E66.[address] [address] Apr, Dizziness R42 ; Intractable vomiting wit h nausea, unspecified vomiting type R11.2 ; Morbid (severe) obesity due to excess calories E66.01 ; First trimester Z34.91 ; History of pre-eclampsia Z87.59 and Morbid obesity E66.[address] [address] 12 Apr, [address] [address] Mar, Moderate persistent asthma with exacerba tion J45.41 and BMI 45.0-49.9, adult Z68.42 [facility] [address] [place], [place] [id number] [address] [place] [address] Mar, Sinusitis J32.9 ; Cerumen im paction H61.20 and BMI 50.0- 59.9, adult Z68.[address] [address] Dec, care and examination Z39.2 ; Moderate persistent asthma with exacerbation J45.41 ; Vaginal discharge N89.8 and BMI 45.0-49.9, adult Z68.42 [facility] [address] [place], [place] [id number] [address] [place] [address] Dec, Seasonal allergies J30.[address] [address] Sep, [address] [address] Sep, [place] [address] [address] Sep, 36 weeks gestation of Z3A.36 ; Third trimester Z34.93 and Obesity affecting in third trimester O99.213 [place] [address] [address] Sep, BMI 45.0-49.9, adult Z68.42 ; Third trim ailin Z34.93 ; 35 weeks gestation of Z3A.35 ; Obesity affecting in third trimester O99.213 and Vaginal discharge N89.8 [place] [address] [address] Sep, [place] [address] [address] Sep, [place] [address] [address] Sep, Third trimester Z34.93 ; 34 we eks gestation of Z3A.34 ; Current with history of pre-term labor in third trimester O09.213 and Obesity affecting in third trimester O99.213 [place] [address] [address] Sep, [place] [address] [address] Sep, [facility] [address] [facility] [id number] [address] [place] [address] Aug, Acute maxillary sinusitis, r ecurrence not specified J01.00 ; Moderate persistent asthma with exacerbation J45.41 and Chest congestion R09.89 [place] [address] [address] 27 Aug, 2017 Third trimester Z34.93 ; 32 we eks gestation of Z3A.32 ; Obesity affecting in third trimester O99.213 and BMI 45.0- 49.9, adult Z68.42 [place] [address] [address] Aug, [place] [address] [address] Aug, 30 weeks gestation of Z3A.30 ; Third trimester Z34.93 ; Nausea/vomiting in O21.9 ; Marijuana use F12.90 ; Obesity affecting in third trimester O99.213 and Encounter for immunization Z23 [place] [address] [address] Aug, [place] [address] [address] July, [address] [address] July, Decreased movements in second trim ailin, single or unspecified fetus O36.8120 [place] [address] [address] July, Decreased movements in second trim ailin, single or unspecified fetus O36.8120 [place] [address] [address] July, [address] [address] July, Multigravida in second trimester Z34.82 ; 26 weeks gestation of Z3A.26 ; Moderate persistent asthma with exacerbation J45.41 and Obesity affecting in second trimester O99.212 [place] [address] [address] Jun, [place] [address] [address] Jun, Multigravida in second trimester Z34.82 ; Normal in multigravida Z34.80 ; 22 weeks gestation of Z3A.22 ; Obesity affecting in second trimester O99.212 ; Herpesviral infection, unspecified B00.9 and Other viral diseases complicating , second trimester O98.512 [place] [address] [address] Jun, IMMUNIZATIONS No Known Immunizations SOCIAL HISTORY Never Assessed REASON FOR VISIT fatigue, dizzy , patient states she wants to do the OB intake another day does n't feel good _ _ liz starks, patient states she got some phenergan for nausea at [facility] PLAN OF CARE Activity Details Follow Up NA for OB intake Reason: VITAL SIGNS Height 71 in 2018-05-06 Weight 360.0 lbs 2018-05-06 Temperature 98.0 degrees Fahrenheit 2018-05-06 Heart Rate 80 bpm 2018-05-06 Respiratory Rate 22 2018-05-06 BMI 50.20 kg/m2 2018-05-06 Blood pressure systolic 118 mmHg 2018-05-06 Blood pressure diastolic 68 mmHg 2018-05-06 MEDICATIONS Medication Instructions Dosage Frequency Start Date End Date Duration S tatus Ventolin HFA 108 (90 Base) MCG/ACT Inhalation every 6 hrs PRN for shortness of breath 2 puffs as needed 30 days Not-Oscar ing Azithromycin 250 MG Orally Once a day 2 tablets on the rst day, then 1 tablet daily for 4 days 24h Mar, 5 day(s) Not-Taking Zofran 4 MG Orally Twice a day 2 tablets 12h Apr, 30 day(s) Active Advair Diskus 250-50 MCG/DOSE Inhalation Twice a day 1 puff 12h Dec, Not-Taking Flovent HFA 110 MCG/ACT Inhalation Twice a day 1 puff 12h Sep, 018 Not-Taking PredniSONE 20 MG Orally Once a day 2 tablets 24h Mar, 5 days Not-Taking Ventolin HFA 108 (90 Base) MCG/ACT Inhalation every 6 hrs 2 puffs a s needed 6h 25 Not-Taking Albuterol Sulfate (2.5 MG/3ML) 0.083% Inhalation Three times a day 3 ml as needed 8h Sep, Not-Taking PredniSONE 50 MG Orally Once a day 1 tablet 24h Mar, 7 days Not-Taking RESULTS No Results PROCEDURES No Known procedures INSTRUCTIONS MEDICATIONS ADMINISTERED No Known Medications MEDICAL (GENERAL) HISTORY Type Description Date Medical History Preeclampsia history Medical History Asthma Medical History HSV 1&2 Medical History Hypertension Surgical History abdomen laparascopy Surgical History intestine surgery as infant Hospitalization History childbirth Hospitalization History [facility] for 09/2017
--- OUTSIDE RECORDS SUMMARY | 2019-06-21 22:55 | XMS REPORT ---
Author Author Christine GARCIA Organization [facility] Address [address] [place] [address] Care Team Providers Care Hod Carrier Name Role Phone BRETT GARCIA Unavailable PROBLEMS Type Condition ICD9-CM Code LEA47-XU Code Onset Dates Condition S tatus SNOMED Code Problem Morbid (severe) obesity due to excess calories E66 .01 Active 026324372 Problem Chronic obstructive pulmonary disease, unspecified COPD ty pe J44.9 Active 98652408 Problem Chronic bronchitis, unspecified chronic bronchitis type J42 Active 67831077 Problem Essential hypertension I10 Active 35208149 Problem Seasonal allergies J30.2 Active 4 72926847 Problem Excessive and frequent menstruation with irregular cycle N92.1 Active 76080019 Problem Moderate persistent asthma with exacerbation J45.4 1 Active 468172466 Problem Gastro-esophageal reflux disease without esophagitis K21.9 Active 821497215 Problem COPD with acute exacerbation J44.1 A ctive 463802862 Problem BMI 50.0-59.9, adult Z68.43 Active 302490392 Problem Other secondary hypertension I15.8 A ctive [id number] ALLERGIES No Information ENCOUNTERS Encounter Location Date Diagnosis [facility] [address] [id number] [place] [address] Apr, Acute non-recurrent ethmoidal sinusitis J01.20 ; Chronic obstructive pulmonary disease, unspecified COPD type J44.9 ; Moderate persistent asthma with exacerbation J45.41 ; Tobacco abuse Z72.0 and Vaginal yeast infection B37.3 [facility] [address] [facility] [id number] [address] [place] [address] Mar, Cough R05 and Influenza-like illness R69 [facility] [address] [id number] [place] [address] Mar, Chronic obstructive pulmonary disease, u nspecified COPD type J44.9 [place] [address] [address] 15 Mar, 2019 Chronic obstructive pulmonary disease, u nspecified COPD type J44.9 ; Moderate persistent asthma with exacerbation J45.41 and BMI 50.0-59.9, adult Z68.43 [place] [address] [address] 14 Mar, 2019 [place] [address] [address] 10 Mar, 2019 [place] [address] [address] 17 Feb, 2019 IUD (intrauterine device) in place Z97.5 and Screen for STD (sexually transmitted disease) Z11.3 [place] [address] [address] 05 Feb, 2019 [place] [address] [address] 05 Feb, 2019 Chlamydia infection A74.9 ; Excessive an d frequent menstruation with irregular cycle N92.1 and Presence of (intrauterine) contraceptive device Z97.5 [place] [address] [address] 05 Feb, 2019 [place] [address] [address] 14 Jan, 2019 care and examination Z39.2 ; control counseling Z30.09 ; Encounter for IUD insertion Z30.430 ; BMI 50.0-59.9, adult Z68.43 ; Essential hypertension I10 and Screen for STD (sexually transmitted disease) Z11.3 [place] [address] [address] Jan, [place] [address] [address] Dec, [place] [address] [address] Dec, [place] [address] [address] Dec, [place] [address] [address] Dec, Moderate persistent asthma with exacerba tion J45.41 ; BMI 50.0-59.9, adult Z68.43 and Other secondary hypertension I15.8 [place] [address] [address] Dec, [place] [address] [address] Dec, [place] [address] [address] Dec, Pre-eclampsia affecting puerperium O14.9 5 ; Swelling of lower extremity M79.89 and BMI 50.0-59.9, adult Z68.43 [place] [address] [address] Dec, [place] [address] [address] Nov, Third trimester Z34.93 ; 38 we eks gestation of Z3A.38 ; Obesity affecting in third trimester O99.213 ; BMI 45.0-49.9, adult Z68.42 and COPD with acute exacerbation J44.1 [place] [address] [address] Nov, Decreased movement affecting pregn ian, antepartum O36.8190 [place] [address] [address] 17 Nov, 2018 Third trimester Z34.93 ; 37 we eks gestation of Z3A.37 ; Obesity affecting in third trimester O99.213 ; Other viral diseases complicating , third trimester O98.513 and Herpesviral infection, unspecified B00.9 [place] [address] [address] Nov, Third trimester Z34.93 and Dec reased movements in third trimester, single or unspecified fetus O36.8130 [place] [address] [address] Nov, [place] [address] [address] Nov, Third trimester Z34.93 ; 36 we eks gestation of Z3A.36 and Obesity affecting in third trimester O99.213 [place] [address] [address] Nov, [place] [address] [address] Nov, care in third trimester Z34.93 ; COPD with acute exacerbation J44.1 and 35 weeks gestation of Z3A.[address] [address] Oct, Morbid obesity E66.01 ; Acute cystitis d uring in third trimester O23.13 ; Third trimester Z34.93 and History of chlamydia infection Z86.19 [place] [address] [address] Oct, [place] [address] [address] Oct, care in third trimester Z34.93 ; 32 weeks gestation of Z3A.32 ; Morbid obesity E66.01 ; Gastro-esophageal reflux disease without esophagitis K21.9 ; Diseases of the digestive system complicating , third trimester O99.613 ; History of herpes genitalis Z86.19 ; Encounter for immunization Z23 and Obesity affecting in third trimester O99.213 [place] [address] [address] Sep, [facility] [address] [facility] [id number] [address] [place] [address] Sep, Allergic conjunctivitis of r ight eye H10.11 ; Hordeolum internum of right upper eyelid H00.021 and Morbid obesity E66.01 [place] [address] [place] [id number] [place] [address] 10 Sep, 2018 Dental examination Z01.20 [place] [address] [address] Sep, Third trimester Z34.93 ; 27 we eks gestation of Z3A.27 ; Morbid obesity E66.01 and Obesity affecting in second trimester O99.212 [place] [address] [address] Sep, [place] [address] [address] Sep, 18 weeks gestation of Z3A.18 ; Obesity affecting in second trimester O99.212 ; Other specified related conditions, second trimester O26.892 and Other specified noninflammatory disorders of vagina N89.8 [place] [address] [address] Aug, [place] [address] [address] Aug, Second trimester Z34.92 ; 22 w eeks gestation of Z3A.22 ; Obesity affecting in second trimester O99.212 and Moderate persistent asthma with exacerbation J45.41 [place] [address] [place] [id number] [place] [address] July, [place] [address] [address] July, [place] [address] [address] July, Second trimester Z34.92 ; Obes ity affecting in second trimester O99.212 ; 18 weeks gestation of Z3A.18 ; Other specified related conditions, second trimester O26.892 ; Other specified noninflammatory disorders of vagina N89.8 and Chronic bronchitis, unspecified chronic bronchitis type J42 [place] [address] [address] July, [address] [address] July, 14 weeks gestation of Z3A.14 a nd Second trimester Z34.[address] [address] Jun, Second trimester Z34.92 ; 14 w eeks gestation of Z3A.14 ; Obesity affecting in second trimester O99.212 and Chronic obstructive pulmonary disease, unspecified COPD type J44.[address] [address] Jun, Moderate persistent asthma with exacerba tion J45.41 ; Morbid (severe) obesity due to excess calories E66.01 ; Shortness of breath R06.02 ; First trimester Z34.91 and 13 weeks gestation of Z3A.[address] [address] Jun, [address] [address] May, Dental examination Z01.[address] [address] May, Obesity affecting in first tri mester O99.211 ; 12 weeks gestation of Z3A.12 ; Vaginal yeast infection B37.3 ; Moderate persistent asthma with exacerbation J45.41 ; Frequent headaches R51 ; Elevated blood pressure affecting in first trimester, antepartum O16.1 and Morbid obesity E66.[address] [address] May, Normal in multigravida Z34.80 ; 8 weeks gestation of Z3A.08 and Heart palpitations R00.[address] [address] May, Moderate persistent asthma with exacerba tion J45.[address] [address] 26 Feb, 2019 Normal in multigravida Z34.80 ; 8 weeks gestation of Z3A.08 ; Heart palpitations R00.2 ; Obesity affecting in first trimester O99.211 ; BMI 50.0-59.9, adult Z68.43 and Morbid obesity E66.01 [place] [address] [address] 19 Apr, 2018 Dizziness R42 ; Intractable vomiting wit h nausea, unspecified vomiting type R11.2 ; Morbid (severe) obesity due to excess calories E66.01 ; First trimester Z34.91 ; History of pre-eclampsia Z87.59 and Morbid obesity E66.[address] [address] 12 Apr, [address] [address] Mar, Moderate persistent asthma with exacerba tion J45.41 and BMI 45.0-49.9, adult Z68.42 [facility] [place] [id number] [place] [address] Mar, Sinusitis J32.9 ; Cerumen im paction H61.20 and BMI 50.0- 59.9, adult Z68.[address] [address] Dec, care and examination Z39.2 ; Moderate persistent asthma with exacerbation J45.41 ; Vaginal discharge N89.8 and BMI 45.0-49.9, adult Z68.42 [facility] [place] [id number] [place] [place] [address] Dec, Seasonal allergies J30.[address] [address] Sep, [address] [address] Sep, [address] [address] Sep, 36 weeks gestation of Z3A.36 ; Third trimester Z34.93 and Obesity affecting in third trimester O99.213 [place] [address] [address] Sep, BMI 45.0-49.9, adult Z68.42 ; Third trim ailin Z34.93 ; 35 weeks gestation of Z3A.35 ; Obesity affecting in third trimester O99.213 and Vaginal discharge N89.8 [place] [address] [address] Sep, [place] [address] [address] Sep, [place] [address] [address] Sep, Third trimester Z34.93 ; 34 we eks gestation of Z3A.34 ; Current with history of pre-term labor in third trimester O09.213 and Obesity affecting in third trimester O99.213 [place] [address] [address] Sep, [address] [address] Sep, [facility] [address] [facility] [id number] [address] [place] [address] Aug, Acute maxillary sinusitis, r ecurrence not specified J01.00 ; Moderate persistent asthma with exacerbation J45.41 and Chest congestion R09.89 [place] [address] [address] 27 Aug, 2017 Third trimester Z34.93 ; 32 we eks gestation of Z3A.32 ; Obesity affecting in third trimester O99.213 and BMI 45.0- 49.9, adult Z68.42 [place] [address] [address] Aug, [place] [address] [address] Aug, 30 weeks gestation of Z3A.30 ; Third trimester Z34.93 ; Nausea/vomiting in O21.9 ; Marijuana use F12.90 ; Obesity affecting in third trimester O99.213 and Encounter for immunization Z23 [place] [address] [address] 11 Aug, 2017 [place] [address] [address] July, [place] [address] [address] July, Decreased movements in second trim ailin, single or unspecified fetus O36.8120 [place] [address] [address] July, Decreased movements in second trim ailin, single or unspecified fetus O36.8120 [place] [address] [address] July, [place] [address] [address] July, Multigravida in second trimester Z34.82 ; 26 weeks gestation of Z3A.26 ; Moderate persistent asthma with exacerbation J45.41 and Obesity affecting in second trimester O99.212 [place] [address] [address] Jun, [address] [address] Jun, Multigravida in second trimester Z34.82 ; Normal in multigravida Z34.80 ; 22 weeks gestation of Z3A.22 ; Obesity affecting in second trimester O99.212 ; Herpesviral infection, unspecified B00.9 and Other viral diseases complicating , second trimester O98.512 [place] [address] [address] Jun, IMMUNIZATIONS No Known Immunizations SOCIAL HISTORY Never Assessed REASON FOR VISIT [facility] PLAN OF CARE Activity Details Follow Up prn Reason: VITAL SIGNS MEDICATIONS Unknown Medications RESULTS No Results PROCEDURES Procedure Date Ordered Result Body Site Billing Notes on claim June 10, 2018 SCREENING OF A PATIENT June 10, 2018 INSTRUCTIONS MEDICATIONS ADMINISTERED No Known Medications MEDICAL (GENERAL) HISTORY Type Description Date Medical History Preeclampsia history Medical History Asthma Medical History HSV 1&2 Medical History Hypertension Surgical History abdomen laparascopy Surgical History intestine surgery as Hospitalization History childbirth Hospitalization History [facility] for 09/2017
--- OUTSIDE RECORDS SUMMARY | 2019-06-21 22:55 | XMS REPORT ---
Author Author Christine CM Organization [facility] Address [address] [place] [address] Care Team Providers Care Communications Consultant Name Role Phone BRINA CM Unavailable PROBLEMS Type Condition ICD9-CM Code ZII66-JJ Code Onset Dates Condition S tatus SNOMED Code Problem Morbid (severe) obesity due to excess calories E66 .01 Active 521933949 Problem Chronic obstructive pulmonary disease, unspecified COPD ty pe J44.9 Active 40785557 Problem Chronic bronchitis, unspecified chronic bronchitis type J42 Active 81928449 Problem Essential hypertension I10 Active 29083386 Problem Seasonal allergies J30.2 Active 4 41221567 Problem Excessive and frequent menstruation with irregular cycle N92.1 Active 52868568 Problem Moderate persistent asthma with exacerbation J45.4 1 Active 547503304 Problem Gastro-esophageal reflux disease without esophagitis K21.9 Active 432644436 Problem COPD with acute exacerbation J44.1 A ctive 918960384 Problem BMI 50.0-59.9, adult Z68.43 Active 561014577 Problem Other secondary hypertension I15.8 A ctive 12198876 ALLERGIES No Information ENCOUNTERS Encounter Location Date Diagnosis [facility] [id number] [place] [address] Apr, [facility] [address] [id number] [place] [address] Apr, Acute non-recurrent ethmoidal sinusitis J01.20 ; Chronic obstructive pulmonary disease, unspecified COPD type J44.9 ; Moderate persistent asthma with exacerbation J45.41 ; Tobacco abuse Z72.0 and Vaginal yeast infection B37.3 [facility] [address] [facility] [id number] [place] [address] Mar, Cough R05 and Influenza-like illness R69 [facility] [address] [address] 16 Mar, 2019 Chronic obstructive pulmonary disease, u nspecified COPD type J44.9 [place] [address] [address] 15 Mar, 2019 Chronic obstructive pulmonary disease, u nspecified COPD type J44.9 ; Moderate persistent asthma with exacerbation J45.41 and BMI 50.0-59.9, adult Z68.43 [place] [address] [address] 14 Mar, 2019 [place] [address] [address] 10 Mar, 2019 [place] [address] [address] 17 Feb, 2019 IUD (intrauterine device) in place Z97.5 and Screen for STD (sexually transmitted disease) Z11.3 [place] [address] [address] Feb, [place] [address] [address] 05 Feb, 2019 Chlamydia infection A74.9 ; Excessive an d frequent menstruation with irregular cycle N92.1 and Presence of (intrauterine) contraceptive device Z97.5 [place] [address] [address] 05 Feb, 2019 [place] [address] [address] 14 Jan, 2019 care and examination Z39.2 ; control counseling Z30.09 ; Encounter for IUD insertion Z30.430 ; BMI 50.0-59.9, adult Z68.43 ; Essential hypertension I10 and Screen for STD (sexually transmitted disease) Z11.3 [place] [address] [address] 07 Jan, 2019 [place] [address] [address] Dec, [place] [address] [address] Dec, [place] [address] [address] Dec, [place] [address] [address] Dec, Moderate persistent asthma with exacerba tion J45.41 ; BMI 50.0-59.9, adult Z68.43 and Other secondary hypertension I15.8 [place] [address] [address] Dec, [place] [address] [address] Dec, [place] [address] [address] Dec, Pre-eclampsia affecting puerperium O14.9 5 ; Swelling of lower extremity M79.89 and BMI 50.0-59.9, adult Z68.43 [place] [address] [address] Dec, [place] [address] [address] Nov, Third trimester Z34.93 ; 38 we eks gestation of Z3A.38 ; Obesity affecting in third trimester O99.213 ; BMI 45.0-49.9, adult Z68.42 and COPD with acute exacerbation J44.1 [place] [address] [address] Nov, Decreased movement affecting pregn ian, antepartum O36.[address] [address] Nov, Third trimester Z34.93 ; 37 we eks gestation of Z3A.37 ; Obesity affecting in third trimester O99.213 ; Other viral diseases complicating , third trimester O98.513 and Herpesviral infection, unspecified B00.[address] [address] Nov, Third trimester Z34.93 and Dec reased movements in third trimester, single or unspecified fetus O36.8130 [place] [address] [address] 13 Nov, 2018 [place] [address] [address] Nov, Third trimester Z34.93 ; 36 we eks gestation of Z3A.36 and Obesity affecting in third trimester O99.213 [place] [address] [address] Nov, [place] [address] [address] Nov, care in third trimester Z34.93 ; COPD with acute exacerbation J44.1 and 35 weeks gestation of Z3A.35 [place] [address] [address] Oct, Morbid obesity E66.01 ; Acute cystitis d uring in third trimester O23.13 ; Third trimester Z34.93 and History of chlamydia infection Z86.19 [place] [address] [address] Oct, [place] [address] [address] Oct, care in third trimester Z34.93 ; 32 weeks gestation of Z3A.32 ; Morbid obesity E66.01 ; Gastro-esophageal reflux disease without esophagitis K21.9 ; Diseases of the digestive system complicating , third trimester O99.613 ; History of herpes genitalis Z86.19 ; Encounter for immunization Z23 and Obesity affecting in third trimester O99.213 [place] [address] [address] Sep, [facility] [address] [facility] [id number] [place] [address] Sep, Allergic conjunctivitis of r ight eye H10.11 ; Hordeolum internum of right upper eyelid H00.021 and Morbid obesity E66.01 [place] [address] [address] 10 Sep, 2018 Dental examination Z01.20 [place] [address] [address] 09 Sep, 2018 Third trimester Z34.93 ; 27 we eks gestation of Z3A.27 ; Morbid obesity E66.01 and Obesity affecting in second trimester O99.212 [place] [address] [address] Sep, [place] [address] [address] Sep, 18 weeks gestation of Z3A.18 ; Obesity affecting in second trimester O99.212 ; Other specified related conditions, second trimester O26.892 and Other specified noninflammatory disorders of vagina N89.8 [place] [address] [address] Aug, [place] [address] [address] 04 Aug, 2018 Second trimester Z34.92 ; 22 w eeks gestation of Z3A.22 ; Obesity affecting in second trimester O99.212 and Moderate persistent asthma with exacerbation J45.41 [place] [address] [address] July, [place] [address] [address] July, [place] [address] [address] July, Second trimester Z34.92 ; Obes ity affecting in second trimester O99.212 ; 18 weeks gestation of Z3A.18 ; Other specified related conditions, second trimester O26.892 ; Other specified noninflammatory disorders of vagina N89.8 and Chronic bronchitis, unspecified chronic bronchitis type J42 [place] [address] [address] July, [address] [address] July, 14 weeks gestation of Z3A.14 a nd Second trimester Z34.92 [place] [address] [address] Jun, Second trimester Z34.92 ; 14 w eeks gestation of Z3A.14 ; Obesity affecting in second trimester O99.212 and Chronic obstructive pulmonary disease, unspecified COPD type J44.[address] [address] Jun, Moderate persistent asthma with exacerba tion J45.41 ; Morbid (severe) obesity due to excess calories E66.01 ; Shortness of breath R06.02 ; First trimester Z34.91 and 13 weeks gestation of Z3A.13 [place] [address] [address] Jun, [address] [address] May, Dental examination Z01.[address] [address] May, Obesity affecting in first tri mester O99.211 ; 12 weeks gestation of Z3A.12 ; Vaginal yeast infection B37.3 ; Moderate persistent asthma with exacerbation J45.41 ; Frequent headaches R51 ; Elevated blood pressure affecting in first trimester, antepartum O16.1 and Morbid obesity E66.[address] [address] May, Normal in multigravida Z34.80 ; 8 weeks gestation of Z3A.08 and Heart palpitations R00.[address] [address] May, Moderate persistent asthma with exacerba tion J45.[address] [address] 26 Apr, 2018 Normal in multigravida Z34.80 ; 8 weeks gestation of Z3A.08 ; Heart palpitations R00.2 ; Obesity affecting in first trimester O99.211 ; BMI 50.0-59.9, adult Z68.43 and Morbid obesity E66.[address] [address] Apr, Dizziness R42 ; Intractable vomiting wit h nausea, unspecified vomiting type R11.2 ; Morbid (severe) obesity due to excess calories E66.01 ; First trimester Z34.91 ; History of pre-eclampsia Z87.59 and Morbid obesity E66.[address] [address] 12 Apr, [address] [address] Mar, Moderate persistent asthma with exacerba tion J45.41 and BMI 45.0-49.9, adult Z68.42 [facility] [address] [place], [place] [id number] [address] [place] [address] Mar, Sinusitis J32.9 ; Cerumen im paction H61.20 and BMI 50.0- 59.9, adult Z68.[address] [address] Dec, care and examination Z39.2 ; Moderate persistent asthma with exacerbation J45.41 ; Vaginal discharge N89.8 and BMI 45.0-49.9, adult Z68.42 [facility] [place] [id number] [place] [address] Dec, Seasonal allergies J30.[address] [address] Sep, [address] [address] Sep, [place] [address] [address] Sep, 36 weeks gestation of Z3A.36 ; Third trimester Z34.93 and Obesity affecting in third trimester O99.213 [facility] [id number] [place] [address] 17 Sep, 2017 BMI 45.0-49.9, adult Z68.42 ; Third trim ailin Z34.93 ; 35 weeks gestation of Z3A.35 ; Obesity affecting in third trimester O99.213 and Vaginal discharge N89.8 [place] [address] [address] Sep, [place] [address] [address] Sep, [place] [address] [address] Sep, Third trimester Z34.93 ; 34 we eks gestation of Z3A.34 ; Current with history of pre-term labor in third trimester O09.213 and Obesity affecting in third trimester O99.213 [place] [address] [address] Sep, [place] [address] [address] Sep, [facility] [address] [facility] [id number] [place] [address] Aug, Acute maxillary sinusitis, r ecurrence not specified J01.00 ; Moderate persistent asthma with exacerbation J45.41 and Chest congestion R09.89 [place] [address] [address] 27 Aug, 2017 Third trimester Z34.93 ; 32 we eks gestation of Z3A.32 ; Obesity affecting in third trimester O99.213 and BMI 45.0- 49.9, adult Z68.42 [place] [address] [address] Aug, [place] [address] [address] Aug, 30 weeks gestation of Z3A.30 ; Third trimester Z34.93 ; Nausea/vomiting in O21.9 ; Marijuana use F12.90 ; Obesity affecting in third trimester O99.213 and Encounter for immunization Z23 [place] [address] [address] Aug, [place] [address] [address] July, [address] [address] July, Decreased movements in second trim ailin, single or unspecified fetus O36.8120 [place] [address] [address] July, Decreased movements in second trim ailin, single or unspecified fetus O36.8120 [place] [address] [address] July, [address] [address] July, Multigravida in second trimester Z34.82 ; 26 weeks gestation of Z3A.26 ; Moderate persistent asthma with exacerbation J45.41 and Obesity affecting in second trimester O99.212 [place] [address] [address] Jun, [place] [address] [address] Jun, Multigravida in second trimester Z34.82 ; Normal in multigravida Z34.80 ; 22 weeks gestation of Z3A.22 ; Obesity affecting in second trimester O99.212 ; Herpesviral infection, unspecified B00.9 and Other viral diseases complicating , second trimester O98.512 [place] [address] [address] Jun, IMMUNIZATIONS No Known Immunizations SOCIAL HISTORY Never Assessed REASON FOR VISIT OB f/u -- liz starks, headaches every day PLAN OF CARE Activity Details Follow Up 2 Weeks with Dilcia mcgee blood pressure in OB pt Reason: VITAL SIGNS Height 71 in 2018-06-10 Weight 376.0 lbs 2018-06-10 Temperature 98.3 degrees Fahrenheit 2018-06-10 BMI 52.441 kg/m2 2018-06-10 Blood pressure systolic 136 mmHg 2018-06-10 Blood pressure diastolic 78 mmHg 2018-06-10 MEDICATIONS Medication Instructions Dosage Frequency Start Date End Date Duration S tatus Advair Diskus 250-50 MCG/DOSE Inhalation Twice a day 1 puff 12h Dec, Active Zofran 4 MG Orally Twice a day 2 tablets 12h Apr, 30 day(s) Active Diflucan 150 MG Orally every 72 hours 1 tablet May, Active Reglan 10 mg Orally 2 times a day as directed 12h May, 30 days Active Ventolin HFA 108 (90 base) mcg/act Inhalation every 6 hrs 2 puffs a s needed 6h 25 Active RESULTS Name Result Date Reference Range UA OB DIP (IN HOUSE) 2018-06-10 Glucose neg Protein neg PROCEDURES Procedure Date Ordered Result Body Site URINE-NO MICRO June 10, 2018 INSTRUCTIONS MEDICATIONS ADMINISTERED No Known Medications MEDICAL (GENERAL) HISTORY Type Description Date Medical History Preeclampsia history Medical History Asthma Medical History HSV 1&2 Medical History Hypertension Surgical History abdomen laparascopy Surgical History intestine surgery as Hospitalization History childbirth Hospitalization History [facility] for 09/2017
--- OUTSIDE RECORDS SUMMARY | 2019-06-21 22:56 | XMS REPORT | Continuity of Care Document ---
Author Organization Unknown Address Unknown Phone Unavailable Allergies Active Description Code Type Severity Reaction Onset Reported/Identified Relationship to Patient Clinical Status Yes No Known Drug Allergies [id number] Drug Allergy Unknown N/A 10/20/2012 Medications There is no data. Problems Date Dx Coded Attending Type Code Diagnosis Diagnosed By 10/20/2012 NELIA SAAB, SHEILA Barraza Ot 305.1 TOBACCO USE DISORDER 10/20/2012 NELIA SAAB, SHEILA Barraza Ot 493.92 ASTHMA, UNSPECIFIED, W (ACUTE) EXACERBAT 10/20/2012 NELIA SAAB, SHEILA Barraza Ot 786.05 SHORTNESS OF BREATH 09/01/2017 BONILLA TALIA TRONCOSOA Ivett Ot E86.0 DEHYDRATION 09/01/2017 BONILLA TALIA TRONCOSOA K Ot O21.2 LATE VOMITING OF 09/01/2017 BONILLA TALIA TRONCOSOA K Ot O99.28 3 ENDO, NUTRITIONAL AND METAB DISEASES COM 09/01/2017 BONILLA , TOÑO K Ot Z3A.31 31 WEEKS GESTATION OF 09/05/2017 BONILLA TALIA TRONCOSOA K Ot E86.0 DEHYDRATION 09/05/2017 BONILLA TALIA TRONCOSOA K Ot O21.2 LATE VOMITING OF 09/05/2017 BONILLA TALIA TRONCOSOA K Ot O99.28 3 ENDO, NUTRITIONAL AND METAB DISEASES COM 09/05/2017 TALIA BONILLA DOA K Ot Z3A.31 31 WEEKS GESTATION OF [...] OBESITY COMPLICATING , THIRD TR 09/18/2017 BARNIDGE DOSARAHBETTINA E Ot O99.323 DRUG USE COMPLICATING , THIRD T 09/18/2017 BARNIDGE DO, BETTINA E Ot O99.333 SMOKING (TOBACCO) COMPLICATING 09/18/2017 BARNIDGE DO BETTINA E Ot O99.513 DISEASES OF THE RESP SYS COMP , 09/18/2017 BARNIDGE DO, BETTINA E Ot Z3A.33 33 WEEKS GESTATION OF 09/19/2017 BARNIDGE DO BETTINA E Ot F12.90 CANNABIS USE, UNSPECIFIED, UNCOMPLICATED 09/19/2017 BARNIDGE DO, BETTINA E Ot F17.210 NICOTINE DEPENDENCE, CIGARETTES, UNCOMPL 09/19/2017 BARNIDGE DO BETTINA E Ot J44.9 CHRONIC OBSTRUCTIVE PULMONARY DISEASE, U 09/19/2017 BARNIDGE DOSARAHBETTINA E Ot O09.33 SUPRVSN OF PREG W INSUFFICIENT ANTENAT C 09/19/2017 BARNIDGE DO, BETTINA E Ot O60.03 LABOR WITHOUT DELIVERY, THIRD TR 09/19/2017 EVINNIDGE DOFITOT E Ot O99.213 OBESITY COMPLICATING , THIRD TR 09/19/2017 BARNIDGE DO BETTINA E Ot O99.323 DRUG USE COMPLICATING , THIRD T 09/19/2017 BARNIDGE DOSARAHBETTINA E Ot O99.333 SMOKING (TOBACCO) COMPLICATING 09/19/2017 BARNIDGE DO BETTINA E Ot O99.513 DISEASES OF THE RESP SYS COMP , 09/19/2017 BARNIDGE DO BETTINA E Ot Z3A.33 33 WEEKS GESTATION OF 09/19/2017 BARNIDGE DO, BETTINA E Ot F12.90 CANNABIS USE, UNSPECIFIED, UNCOMPLICATED 09/19/2017 BARNIDGE DO, BETTINA E Ot F17.210 NICOTINE DEPENDENCE, CIGARETTES, UNCOMPL 09/19/2017 BARNIDGE DO BETTINA E Ot J44.9 CHRONIC OBSTRUCTIVE PULMONARY DISEASE, U 09/19/2017 EVINBETTINA MENDIOLA DO Ot O09.33 SUPRVSN OF PREG W INSUFFICIENT ANTENAT C 09/19/2017 BETTINA ZAVALA DO Ot O60.03 LABOR WITHOUT DELIVERY, THIRD TR 09/19/2017 BETTINA ZAVALA DO Ot O99.213 OBESITY COMPLICATING , THIRD TR 09/19/2017 BETTINA ZAVALA DO Ot O99.323 DRUG USE COMPLICATING , THIRD T 09/19/2017 BETTINA ZAVALA DO Ot O99.333 SMOKING (TOBACCO) COMPLICATING 09/19/2017 BETTINA ZAVALA DO Ot O99.513 DISEASES OF THE RESP SYS COMP , 09/19/2017 BETTINA ZAVALA DO Ot Z3A.33 33 WEEKS GESTATION OF 10/18/2017 Ot E66.01 MOR BID (SEVERE) OBESITY DUE TO EXCESS CA 10/18/2017 Ot 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, U 10/18/2017 Ot O13.4 GEST ATNL HTN WITHOUT SIGNIFICANT PROTEIN 10/18/2017 Ot O98.32 OTH INFECTIONS W SEXL MODE OF TRANSMISS 10/18/2017 Ot O99.214 OB ESITY COMPLICATING CHILDBIRTH 10/18/2017 Ot O99.52 DIS EASES OF THE RESPIRATORY SYSTEM COMPL 10/18/2017 Ot Z23 ENCOUN TER FOR IMMUNIZATION 10/18/2017 Ot Z37.0 SING LE LIVE 10/18/2017 Ot Z3A.37 37 WEEKS GESTATION OF 10/18/2017 Ot Z68.42 BOD Y MASS INDEX (BMI) 45.0-49.9, ADULT 01/26/2018 SHANNAN DON Ot D64.9 ANEMIA, UNSPECIFIED 01/26/2018 SHANNAN DON Ot F17.210 NICOTINE DEPENDENCE, CIGARETTES, UNCOMPL 01/26/2018 SHANNAN DON Ot F32.9 MAJOR DEPRESSIVE DISORDER, SINGLE EPISOD 01/26/2018 SHANNAN DON Ot H57.11 OCULAR PAIN, RIGHT EYE 01/26/2018 SHANNAN DON Ot J44.9 CHRONIC OBSTRUCTIVE PULMONARY DISEASE, U 01/26/2018 ARIAN, SHANNAN REGIONAL SALES REPRESENTATIVE Ot K21.9 GASTRO-ESOPHAGEAL REFLUX DISEASE WITHOUT 01/26/2018 ARIAN, SHANNAN REGIONAL SALES REPRESENTATIVE Ot S05.01XA INJ CONJUNCTIVA AND CORNEAL ABRASION W/O 01/26/2018 ARIAN, SHANNAN REGIONAL SALES REPRESENTATIVE Ot X58.XXXA EXPOSURE TO OTHER SPECIFIED FACTORS, INI 01/26/2018 ARIAN, SHANNAN REGIONAL SALES REPRESENTATIVE Ot Z79.51 RESIDENTIAL (CURRENT) USE OF INHALED STERO 01/26/2018 ARIAN, SHANNAN REGIONAL SALES REPRESENTATIVE Ot Z79.52 RESIDENTIAL (CURRENT) USE OF SYSTEMIC STER 01/26/2018 ARIAN, SHANNAN REGIONAL SALES REPRESENTATIVE Ot Z80.3 FAMILY HISTORY OF MALIGNANT NEOPLASM OF 01/26/2018 ARIAN, SHANNAN REGIONAL SALES REPRESENTATIVE Ot Z86.19 PERSONAL HISTORY OF OTHER INFECTIOUS AND 01/26/2018 ARIAN, SHANNAN REGIONAL SALES REPRESENTATIVE Ot Z87.19 PERSONAL HISTORY OF OTHER DISEASES OF 01/26/2018 ARIAN, SHANNAN REGIONAL SALES REPRESENTATIVE Ot Z87.448 PERSONAL HISTORY OF OTHER DISEASES OF UR 01/28/2018 ARIAN, SHANNAN REGIONAL SALES REPRESENTATIVE Ot D64.9 ANEMIA, UNSPECIFIED 01/28/2018 ARIAN SHANNAN REGIONAL SALES REPRESENTATIVE Ot F17.210 NICOTINE DEPENDENCE, CIGARETTES, UNCOMPL 01/28/2018 ARIAN, SHANNAN REGIONAL SALES REPRESENTATIVE Ot F32.9 MAJOR DEPRESSIVE DISORDER, SINGLE EPISOD 01/28/2018 ARIAN, SHANNAN REGIONAL SALES REPRESENTATIVE Ot H57.11 OCULAR PAIN, RIGHT EYE 01/28/2018 ARIAN SHANNAN REGIONAL SALES REPRESENTATIVE Ot J44.9 CHRONIC OBSTRUCTIVE PULMONARY DISEASE, U 01/28/2018 ARIAN, SHANNAN REGIONAL SALES REPRESENTATIVE Ot K21.9 GASTRO-ESOPHAGEAL REFLUX DISEASE WITHOUT 01/28/2018 ARIAN, SHANNAN REGIONAL SALES REPRESENTATIVE Ot S05.01XA INJ CONJUNCTIVA AND CORNEAL ABRASION W/O 01/28/2018 ARIAN, SHANNAN REGIONAL SALES REPRESENTATIVE Ot X58.XXXA EXPOSURE TO OTHER SPECIFIED FACTORS, INI 01/28/2018 ARIAN, SHANNAN REGIONAL SALES REPRESENTATIVE Ot Z79.51 CENTER HUMAN RESOURCES MANAGER (CURRENT) USE OF INHALED STERO 01/28/2018 ARIAN, SHANNAN REGIONAL SALES REPRESENTATIVE Ot Z79.52 RESIDENTIAL (CURRENT) USE OF SYSTEMIC STER 01/28/2018 ARIAN, SHANNAN REGIONAL SALES REPRESENTATIVE Ot Z80.3 FAMILY HISTORY OF MALIGNANT NEOPLASM OF 01/28/2018 ARIAN, SHANNAN REGIONAL SALES REPRESENTATIVE Ot Z86.19 PERSONAL HISTORY OF OTHER INFECTIOUS AND 01/28/2018 ARIAN, SHANNAN REGIONAL SALES REPRESENTATIVE Ot Z87.19 PERSONAL HISTORY OF OTHER DISEASES [...] O20.9 HEMORRHAGE IN EARLY , UNSPECIFI 04/27/2018 SONYA BRETT TRONCOSO Ot O99.019 ANEMIA COMPLICATING , UNSPECIFI 04/27/2018 STEW HASSAN DOA Ivett Ot O99.210 OBESITY COMPLICATING , UNSPECIF 04/27/2018 BRETT HASSAN DO Ot O99.320 DRUG USE COMPLICATING , UNSPECI 04/27/2018 BRETT HASSAN DO Ot O99.330 SMOKING (TOBACCO) COMPLICATING 04/27/2018 BRETT HASSAN DO Ot O99.340 OTH MENTAL DISORDERS COMPLICATING PREGNA 04/27/2018 SONYA STEW TRONCOSOA Ivett Ot O99.519 DISEASES OF THE RESP SYS [...] HASSAN DO Ot D64.9 ANEMIA, UNSPECIFIED 04/29/2018 SONYA BRETT TRONCOSO Ot E66.01 MORBID (SEVERE) OBESITY DUE TO EXCESS CA 04/29/2018 SONYA BRETT TRONCOSO Ot F12.10 CANNABIS ABUSE, UNCOMPLICATED 04/29/2018 SONYA BRETT TRONCOSO Ot F17.210 NICOTINE DEPENDENCE, CIGARETTES, UNCOMPL 04/29/2018 SONYA BRETT TRONCOSO Ot F32.9 MAJOR DEPRESSIVE DISORDER, SINGLE EPISOD 04/29/2018 SONYA BRETT TRONCOSO Ot J44.9 CHRONIC OBSTRUCTIVE PULMONARY DISEASE, U 04/29/2018 BRETT HASSAN DO Ot K21.9 GASTRO-ESOPHAGEAL REFLUX DISEASE WITHOUT 04/29/2018 BRETT HASSAN DO Ot O20.0 THREATENED 04/29/2018 SONYA BRETT TRONCOSO Ot O20.9 HEMORRHAGE IN EARLY , UNSPECIFI 04/29/2018 BRETT HASSAN DO Ot O99.019 ANEMIA COMPLICATING , UNSPECIFI 04/29/2018 SONYA BRETT TRONCOSO Ot O99.210 OBESITY COMPLICATING , UNSPECIF 04/29/2018 SONYA BRETT TRONCOSO Ot O99.320 DRUG USE COMPLICATING , UNSPECI 04/29/2018 BRETT HASSAN DO Ot O99.330 SMOKING (TOBACCO) COMPLICATING 04/29/2018 SONYA BRETT TRONCOSO Ot O99.340 OTH MENTAL DISORDERS COMPLICATING PREGNA 04/29/2018 BRETT HASSAN DO Ot O99.519 DISEASES OF THE RESP SYS COMP , 04/29/2018 BRETT HASSAN DO Ot O99.619 DISEASES OF THE DGSTV SYS COMP 04/29/2018 SONYA BRETT TRONCSOO Ot Z3A.00 WEEKS OF GESTATION OF NOT SPEC 04/29/2018 BRETT HASSAN DO Ot Z79.51 RESIDENTIAL (CURRENT) USE OF INHALED STERO 04/29/2018 BRETT HASSAN DO Ot Z80.3 FAMILY HISTORY OF MALIGNANT NEOPLASM OF 04/29/2018 BRETT HASSAN DO Ot Z86.19 PERSONAL HISTORY OF OTHER INFECTIOUS AND 04/29/2018 BRETT HASSAN DO Ot Z87.19 PERSONAL HISTORY OF OTHER DISEASES OF TH 04/29/2018 BRETT HASSAN DO Ot Z87.440 PERSONAL HISTORY OF URINARY (TRACT) INFE 05/02/2018 JOSE ROACH APRN Ot D64 .9 ANEMIA, UNSPECIFIED 05/02/2018 JOSE ROACH APRN Ot E66.01 MORBID (SEVERE) OBESITY DUE TO EXCESS CA 05/02/2018 JOSE ROACH APRN Ot F12.10 CANNABIS ABUSE, UNCOMPLICATED 05/02/2018 JOSE ROACH APRN Ot F17.210 NICOTINE DEPENDENCE, CIGARETTES, UNCOMPL 05/02/2018 JOSE ROACH APRN Ot F32 .9 MAJOR DEPRESSIVE DISORDER, SINGLE EPISOD 05/02/2018 JOSE ROACH APRN Ot F41 .9 ANXIETY DISORDER, UNSPECIFIED 05/02/2018 JOSE ROACH APRN Ot J44 .9 CHRONIC OBSTRUCTIVE PULMONARY DISEASE, U 05/02/2018 JOSE ROACH APRN Ot K21 .9 GASTRO-ESOPHAGEAL REFLUX DISEASE WITHOUT 05/02/2018 JOSE ROACH APRN Ot O21 .9 VOMITING OF , UNSPECIFIED 05/02/2018 JOSE ROACH APRN Ot O26.891 OTH RELATED CONDITIONS, FIRST 05/02/2018 JOSE ROACH APRN Ot O99.011 ANEMIA COMPLICATING , FIRST TRI 05/02/2018 JOSE ROACH APRN Ot O99.211 OBESITY COMPLICATING , FIRST TR 05/02/2018 JOSE ROACH APRN Ot O99.321 DRUG USE COMPLICATING , FIRST T 05/02/2018 JOSE ROACH APRN Ot O99.331 SMOKING (TOBACCO) COMPLICATING 05/02/2018 JOSE ROACH APRN Ot O99.341 OTH MENTAL DISORDERS COMPLICATING PREGNA 05/02/2018 JOSE ROACH APRN Ot O99.511 DISEASES OF THE RESP SYS COMP , 05/02/2018 JOSE ROACH APRN Ot O99.611 DISEASES OF THE DGSTV SYS COMP 05/02/2018 JOSE ROACH APRN Ot R00 .2 PALPITATIONS 05/02/2018 JOSE ROACH APRN Ot Z3A.01 LESS THAN 8 WEEKS GESTATION OF 05/02/2018 JOSE ROACH APRN Ot Z79.51 CENTER HUMAN RESOURCES MANAGER (CURRENT) USE OF INHALED STERO 05/02/2018 JOSE ROACH APRN Ot Z79.52 RESIDENTIAL (CURRENT) USE OF SYSTEMIC STER 05/02/2018 JOSE ROACH APRN Ot Z80 .3 FAMILY HISTORY OF MALIGNANT NEOPLASM OF 05/02/2018 JOSE ROACH APRN Ot Z86.19 PERSONAL HISTORY OF OTHER INFECTIOUS AND 05/02/2018 JOSE ROACH APRN Ot Z87.440 PERSONAL HISTORY OF URINARY (TRACT) INFE 05/02/2018 JOSE ROACH APRN Ot Z87.448 PERSONAL HISTORY OF OTHER DISEASES OF UR 05/06/2018 JOSE ROACH APRN Ot D64 .9 ANEMIA, UNSPECIFIED 05/06/2018 JOSE ROACH APRN Ot E66.01 MORBID (SEVERE) OBESITY DUE TO EXCESS CA 05/06/2018 JOSE ROACH APRN Ot F12.10 CANNABIS ABUSE, UNCOMPLICATED 05/06/2018 JOSE ROACH APRN Ot F17.210 NICOTINE DEPENDENCE, CIGARETTES, UNCOMPL 05/06/2018 JOSE ROACH APRN Ot F32 .9 MAJOR DEPRESSIVE DISORDER, SINGLE EPISOD 05/06/2018 JOSE ROACH APRN Ot F41 .9 ANXIETY DISORDER, UNSPECIFIED 05/06/2018 JOSE ROACH APRN Ot J44 .9 CHRONIC OBSTRUCTIVE PULMONARY DISEASE, U 05/06/2018 JOSE ROACH APRN Ot K21 .9 GASTRO-ESOPHAGEAL REFLUX DISEASE WITHOUT 05/06/2018 JOSE ROACH APRN Ot O21 .9 VOMITING OF , UNSPECIFIED 05/06/2018 JOSE ROACH [...] SYS COMP 05/06/2018 JOSE ROACH APRN Ot R00 .2 PALPITATIONS 05/06/2018 JOSE ROACH APRN Ot Z3A.01 LESS THAN 8 WEEKS GESTATION OF 05/06/2018 JOSE ROACH APRN Ot Z79.51 CENTER HUMAN RESOURCES MANAGER (CURRENT) USE OF INHALED STERO 05/06/2018 JOSE ROACH APRN Ot 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 05/06/2018 JOSE ROACH APRN Ot Z80 .3 FAMILY HISTORY OF MALIGNANT NEOPLASM OF 05/06/2018 JOSE ROACH APRN Ot Z86.19 PERSONAL HISTORY OF OTHER INFECTIOUS AND 05/06/2018 JOSE ROACH APRN Ot Z87.440 PERSONAL HISTORY OF URINARY (TRACT) INFE 05/06/2018 JOSE ROACH APRN Ot Z87.448 PERSONAL HISTORY OF OTHER DISEASES OF UR 05/07/2018 JOSE ROACH APRN Ot D64 .9 ANEMIA, UNSPECIFIED 05/07/2018 JOSE ROACH APRN Ot E66.01 MORBID (SEVERE) OBESITY DUE TO EXCESS CA 05/07/2018 JOSE ROACH APRN Ot F12.10 CANNABIS ABUSE, UNCOMPLICATED 05/07/2018 JOSE ROACH APRN Ot F17.210 NICOTINE DEPENDENCE, CIGARETTES, UNCOMPL 05/07/2018 JOSE ROACH APRN Ot F32 .9 MAJOR DEPRESSIVE DISORDER, SINGLE EPISOD 05/07/2018 JOSE ROACH APRN Ot F41 .9 ANXIETY DISORDER, UNSPECIFIED 05/07/2018 JOSE ROAHC APRN Ot J44 .9 CHRONIC OBSTRUCTIVE PULMONARY DISEASE, U 05/07/2018 JOSE ROACH APRN Ot K21 .9 GASTRO-ESOPHAGEAL REFLUX DISEASE WITHOUT 05/07/2018 JOSE ROACH APRN Ot O21 .9 VOMITING OF , UNSPECIFIED 05/07/2018 JOSE ROACH [...] SYS COMP 05/07/2018 JOSE ROACH APRN Ot R00 .2 PALPITATIONS 05/07/2018 JOSE ROACH APRN Ot Z3A.01 LESS THAN 8 WEEKS GESTATION OF 05/07/2018 JOSE ROACH APRN Ot Z79.51 CENTER HUMAN RESOURCES MANAGER (CURRENT) USE OF INHALED STERO 05/07/2018 JOSE ROACH APRN Ot 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 05/07/2018 JOSE ROACH APRN Ot Z80 .3 FAMILY HISTORY OF MALIGNANT NEOPLASM OF 05/07/2018 JOSE ROACH APRN Ot Z86.19 PERSONAL HISTORY OF OTHER INFECTIOUS AND 05/07/2018 JOSE ROACH APRN Ot Z87.440 PERSONAL HISTORY OF URINARY (TRACT) INFE 05/07/2018 JOSE ROACH APRN Ot Z87.448 PERSONAL HISTORY OF OTHER DISEASES OF UR 06/13/2018 JOSE ROACH APRN Ot D64 .9 ANEMIA, UNSPECIFIED 06/13/2018 JOSE ROACH APRN Ot E66.01 MORBID (SEVERE) OBESITY DUE TO EXCESS CA 06/13/2018 JOSE ROACH APRN Ot F12.10 CANNABIS ABUSE, UNCOMPLICATED 06/13/2018 JOSE ROACH APRN Ot F17.210 NICOTINE DEPENDENCE, CIGARETTES, UNCOMPL 06/13/2018 JOSE ROACH APRN Ot F32 .9 MAJOR DEPRESSIVE DISORDER, SINGLE EPISOD 06/13/2018 JOSE ROACH APRN Ot F41 .9 ANXIETY DISORDER, UNSPECIFIED 06/13/2018 JOSE ROACH APRN Ot J44 .9 CHRONIC OBSTRUCTIVE PULMONARY DISEASE, U 06/13/2018 JOSE ROACH APRN Ot K21 .9 GASTRO-ESOPHAGEAL REFLUX DISEASE WITHOUT 06/13/2018 JOSE ROACH APRN Ot O21 .9 VOMITING OF , UNSPECIFIED 06/13/2018 JOSE ROACH [...] SYS COMP 06/13/2018 JOSE ROACH APRN Ot R00 .2 PALPITATIONS 06/13/2018 JOSE ROACH APRN Ot Z3A.01 LESS THAN 8 WEEKS GESTATION OF 06/13/2018 JOSE ROACH APRN Ot Z79.51 RESIDENTIAL (CURRENT) USE OF INHALED STERO 06/13/2018 JOSE ROACH APRN Ot 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 06/13/2018 JOSE ROACH APRN Ot Z80 .3 FAMILY HISTORY OF MALIGNANT NEOPLASM OF 06/13/2018 JOSE ROACH APRN Ot Z86.19 PERSONAL HISTORY OF OTHER INFECTIOUS AND 06/13/2018 JOSE ROACH APRN Ot Z87.440 PERSONAL HISTORY OF URINARY (TRACT) INFE 06/13/2018 JOSE ROACH APRN Ot Z87.448 PERSONAL HISTORY OF OTHER DISEASES OF UR 06/15/2018 SONYA BRETT Ivett Ot D64.9 ANEMIA, UNSPECIFIED 06/15/2018 SONYA BRETT K Ot E66.01 MORBID (SEVERE) OBESITY DUE TO EXCESS CA 06/15/2018 BRETT HASSAN DO Ot E83.42 HYPOMAGNESEMIA 06/15/2018 SONYA BRETT TRONCOSO Ot F12.10 CANNABIS ABUSE, UNCOMPLICATED 06/15/2018 SONYA BRETT TRONCOSO Ot F17.210 NICOTINE DEPENDENCE, CIGARETTES, UNCOMPL 06/15/2018 SONYA BRETT TRONCOSO Ot F19.10 OTHER PSYCHOACTIVE SUBSTANCE ABUSE, UNCO 06/15/2018 SONYA BRETT TRONCOSO Ot F32.9 MAJOR DEPRESSIVE DISORDER, SINGLE EPISOD 06/15/2018 BRETT HASSAN DO Ot J44.9 CHRONIC OBSTRUCTIVE PULMONARY DISEASE, U 06/15/2018 BRETT HASSAN DO Ot J45.901 UNSPECIFIED ASTHMA WITH (ACUTE) EXACERBA 06/15/2018 BRETT HASSAN DO Ot K21.9 GASTRO-ESOPHAGEAL REFLUX DISEASE WITHOUT 06/15/2018 SONYA DO BRETT K Ot O16.1 UNSPECIFIED MATERNAL HYPERTENSION, FIRST 06/15/2018 BRETT HASSAN DO Ot O26.891 OTH RELATED CONDITIONS, FIRST 06/15/2018 SONYA BRETT TRONCOSO Ot O99.011 ANEMIA COMPLICATING , FIRST TRI 06/15/2018 BRETT HASSAN DO Ot O99.211 OBESITY COMPLICATING , FIRST TR 06/15/2018 BRETT HASSAN DO Ot O99.281 ENDO, NUTRITIONAL AND METAB DISEASES COM 06/15/2018 STEW HASSAN DOA K Ot O99.321 DRUG USE COMPLICATING , FIRST T 06/15/2018 STEW HASSAN DOA Ivett Ot O99.331 SMOKING (TOBACCO) COMPLICATING 06/15/2018 BRETT HASSAN DO Ot O99.341 OTH MENTAL DISORDERS COMPLICATING PREGNA 06/15/2018 BRETT HASSAN DO Ot O99.511 DISEASES OF THE RESP SYS COMP , 06/15/2018 BRETT HASSAN DO Ot O99.611 DISEASES OF THE DGSTV SYS COMP 06/15/2018 SONYA DOBRETT Ot Z3A.12 12 WEEKS GESTATION OF 06/15/2018 BRETT HASSAN DO Ot Z79.52 RESIDENTIAL (CURRENT) USE OF SYSTEMIC STER 06/15/2018 BRETT HASSAN DO Ot Z80.3 FAMILY HISTORY OF MALIGNANT NEOPLASM OF 06/15/2018 SONYA TRONCOSOBRETT Ot Z86.19 PERSONAL HISTORY OF OTHER INFECTIOUS AND 06/15/2018 BRETT HASSAN DO Ot Z87.19 PERSONAL HISTORY OF OTHER DISEASES OF TH 06/15/2018 SONYA BRETT TRONCOSO Ot Z87.440 PERSONAL HISTORY OF URINARY (TRACT) INFE 06/15/2018 BRETT HASSAN DO Ot Z98.890 OTHER SPECIFIED POSTPROCEDURAL STATES 06/18/2018 BRETT HASSAN DO Ot D64.9 ANEMIA, UNSPECIFIED 06/18/2018 BRETT HASSAN DO Ot E66.01 MORBID (SEVERE) OBESITY DUE TO EXCESS CA 06/18/2018 BRETT HASSAN DO Ot E83.42 HYPOMAGNESEMIA 06/18/2018 BRETT HASSAN DO Ot F12.10 CANNABIS ABUSE, UNCOMPLICATED 06/18/2018 BRETT HASSAN DO Ot F17.210 NICOTINE DEPENDENCE, CIGARETTES, UNCOMPL 06/18/2018 BRETT HASSAN DO Ot F19.10 OTHER PSYCHOACTIVE SUBSTANCE ABUSE, UNCO 06/18/2018 BRETT HASSAN DO Ot F32.9 MAJOR DEPRESSIVE DISORDER, SINGLE EPISOD 06/18/2018 BRETT HASSAN DO Ot J44.9 CHRONIC OBSTRUCTIVE PULMONARY DISEASE, U 06/18/2018 BRETT HASSAN DO Ot J45.901 UNSPECIFIED ASTHMA WITH (ACUTE) EXACERBA 06/18/2018 BRETT HASSAN DO Ot K21.9 GASTRO-ESOPHAGEAL REFLUX DISEASE WITHOUT 06/18/2018 BRETT HASSAN DO Ot O16.1 UNSPECIFIED MATERNAL HYPERTENSION, FIRST 06/18/2018 BRETT HASSAN DO Ot O26.891 OTH RELATED CONDITIONS, FIRST 06/18/2018 BRETT HASSAN DO Ot O99.011 ANEMIA COMPLICATING , FIRST TRI 06/18/2018 BRETT HASSAN DO Ot O99.211 OBESITY COMPLICATING , FIRST TR 06/18/2018 BRETT HASSAN DO Ot O99.281 ENDO, NUTRITIONAL AND METAB DISEASES COM 06/18/2018 BRETT HASSAN DO, Ot O99.321 DRUG USE COMPLICATING , FIRST T 06/18/2018 BRETT HASSAN DO Ot O99.331 SMOKING (TOBACCO) COMPLICATING 06/18/2018 BRETT HASSAN DO, Ot O99.341 OTH MENTAL DISORDERS COMPLICATING PREGNA 06/18/2018 BRETT HASSAN DO, Ot O99.511 DISEASES OF THE RESP SYS COMP , 06/18/2018 BRETT HASSAN DO, Ot O99.611 DISEASES OF THE DGSTV SYS COMP 06/18/2018 BRETT HASSAN DO, Ot Z3A.12 12 WEEKS GESTATION OF 06/18/2018 BRETT HASSAN DO, Ot 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 06/18/2018 BRETT HASSAN DO, Ot Z80.3 FAMILY HISTORY OF MALIGNANT NEOPLASM OF 06/18/2018 BRETT HASSAN DO, Ot Z86.19 PERSONAL HISTORY OF OTHER INFECTIOUS AND 06/18/2018 BRETT HASSAN DO, Ot Z87.19 PERSONAL HISTORY OF OTHER DISEASES OF TH 06/18/2018 BRETT HASSAN DO, Ot Z87.440 PERSONAL HISTORY OF URINARY (TRACT) INFE 06/18/2018 BRETT HASSAN DO, Ot Z98.890 OTHER SPECIFIED POSTPROCEDURAL STATES 06/20/2018 BRETT HASSAN DO, Ot D64.9 ANEMIA, UNSPECIFIED 06/20/2018 BRETT HASSAN DO, Ot E66.01 MORBID (SEVERE) OBESITY DUE TO EXCESS CA 06/20/2018 BRETT HASSAN DO Ot E83.42 HYPOMAGNESEMIA 06/20/2018 BRETT HASSAN DO, Ot F12.10 CANNABIS ABUSE, UNCOMPLICATED 06/20/2018 BRETT HASSAN DO, Ot F17.210 NICOTINE DEPENDENCE, CIGARETTES, UNCOMPL 06/20/2018 BRETT HASSAN DO Ot F19.10 OTHER PSYCHOACTIVE SUBSTANCE ABUSE, UNCO 06/20/2018 BRETT HASSAN DO Ot F32.9 MAJOR DEPRESSIVE DISORDER, SINGLE EPISOD 06/20/2018 BRETT HASSAN DO, Ot J44.9 CHRONIC OBSTRUCTIVE PULMONARY DISEASE, U 06/20/2018 SONYA TRONCOSO BRETT Ivett Ot J45.901 UNSPECIFIED ASTHMA WITH (ACUTE) EXACERBA 06/20/2018 SONYA TRONCOSO BRETT Ivett Ot K21.9 GASTRO-ESOPHAGEAL REFLUX DISEASE WITHOUT 06/20/2018 SONYA TRONCOSO BRETT Ivett Ot O16.1 UNSPECIFIED MATERNAL HYPERTENSION, FIRST 06/20/2018 SONYA TRONCOSO BRETT Ivett Ot O26.891 OTH RELATED CONDITIONS, FIRST 06/20/2018 SONYA TRONCOSO BRETT Ivett Ot O99.011 ANEMIA COMPLICATING , FIRST TRI 06/20/2018 SONYA TRONCOSO BRETT K Ot O99.211 OBESITY COMPLICATING , FIRST TR 06/20/2018 SONYA DO BRETT Ivett Ot O99.281 ENDO, NUTRITIONAL AND METAB DISEASES COM 06/20/2018 SONYA TRONCOSO BRETT Ivett Ot O99.321 DRUG USE COMPLICATING , FIRST T 06/20/2018 SONYA DO BRETT Ivett Ot O99.331 SMOKING (TOBACCO) COMPLICATING 06/20/2018 SONYA TRONCOSO BRETT Ivett Ot O99.341 OTH MENTAL DISORDERS COMPLICATING PREGNA 06/20/2018 SONYA TRONCOSO BRETT Ivett Ot O99.511 DISEASES OF THE RESP SYS COMP , 06/20/2018 SONYA TRONCOSO BRETT Ivett Ot O99.611 DISEASES OF THE DGSTV SYS COMP 06/20/2018 SONYA DO BRETT K Ot Z3A.12 12 WEEKS GESTATION OF 06/20/2018 SONYA BRETT Ivett Ot Z79.52 RESIDENTIAL (CURRENT) USE OF SYSTEMIC STER 06/20/2018 SONYA DOBRETT Ot Z80.3 FAMILY HISTORY OF MALIGNANT NEOPLASM OF 06/20/2018 SONYA TRONCOSOBRETT Ot Z86.19 PERSONAL HISTORY OF OTHER INFECTIOUS AND 06/20/2018 BRETT HASSAN DO Ot Z87.19 PERSONAL HISTORY OF OTHER DISEASES OF TH 06/20/2018 SONYA BRETT TRONCOSO Ot Z87.440 PERSONAL HISTORY OF URINARY (TRACT) INFE 06/20/2018 BRETT HASSAN DO Ot Z98.890 OTHER SPECIFIED POSTPROCEDURAL STATES 06/22/2018 RACHEL SULTANA APRN Ot G47.10 HYPERSOMNIA, UNSPECIFIED 06/22/2018 RACHEL SULTANA TEST DESIGNER Ot J45.998 OTHER ASTHMA 06/22/2018 RACHEL SULTANA E TEST DESIGNER Ot R05 COUGH 06/22/2018 JOSE SULTANAINE E TEST DESIGNER Ot R06.00 DYSPNEA, UNSPECIFIED 06/22/2018 JOSE SULTANAINE E TEST DESIGNER Ot R06.89 OTHER ABNORMALITIES OF BREATHING 06/22/2018 RACHEL SULTANA E TEST DESIGNER Ot Z72.0 TOBACCO USE 06/24/2018 JOSE SULTANAINE E TEST DESIGNER Ot G47.10 HYPERSOMNIA, UNSPECIFIED 06/24/2018 JOSE SULTANAINE E TEST DESIGNER Ot J45.998 OTHER ASTHMA 06/24/2018 RACHEL SULTANA TEST DESIGNER Ot R05 COUGH 06/24/2018 JOSE SULTANAINE E TEST DESIGNER Ot R06.00 DYSPNEA, UNSPECIFIED 06/24/2018 RACHEL SULTANA E TEST DESIGNER Ot R06.89 OTHER ABNORMALITIES OF BREATHING 06/24/2018 RACHEL SULTANA TEST DESIGNER Ot Z72.0 TOBACCO USE 07/15/2018 SONYA DO, BRETT K Ot D64.9 ANEMIA, UNSPECIFIED 07/15/2018 SONYA DO BRETT K Ot E66.01 MORBID (SEVERE) OBESITY DUE TO EXCESS CA 07/15/2018 SONYA TRONCOSO BRETT K Ot F12.10 CANNABIS ABUSE, UNCOMPLICATED 07/15/2018 SONYA DO BRETT K Ot F17.210 NICOTINE DEPENDENCE, CIGARETTES, UNCOMPL 07/15/2018 SONYA DO BRETT K Ot F32.9 MAJOR DEPRESSIVE DISORDER, SINGLE EPISOD 07/15/2018 SONYA TRONCOSO BRETT K Ot J44.9 CHRONIC OBSTRUCTIVE PULMONARY DISEASE, U 07/15/2018 SONYA DO BRETT K Ot K21.9 GASTRO-ESOPHAGEAL REFLUX DISEASE WITHOUT 07/15/2018 SONYA DO BRETT K Ot O20.0 THREATENED 07/15/2018 SONYA DO BRETT K Ot O20.9 HEMORRHAGE IN EARLY , UNSPECIFI 07/15/2018 SONYA DO BRETT K Ot O99.019 ANEMIA COMPLICATING , UNSPECIFI 07/15/2018 SONYA DO BRETT K Ot O99.210 OBESITY COMPLICATING , UNSPECIF 07/15/2018 SONYA DO BRETT K Ot O99.320 DRUG USE COMPLICATING , UNSPECI 07/15/2018 SONYA TRONCOSO BRETT Root Ot O99.330 SMOKING (TOBACCO) COMPLICATING 07/15/2018 SONYA TRONCOSO BRETT Ivett Ot O99.340 OTH MENTAL DISORDERS COMPLICATING PREGNA 07/15/2018 SONYA TRONCOSOBRETT Ot O99.519 DISEASES OF THE RESP SYS COMP , 07/15/2018 SONYA TRONCOSO BRETT Root Ot O99.619 DISEASES OF THE DGSTV SYS COMP 07/15/2018 SONYA TRONCOSO BRETT K Ot Z3A.00 WEEKS OF GESTATION OF NOT SPEC 07/15/2018 SONYA TRONCOSO BRETT K Ot Z79.51 RESIDENTIAL (CURRENT) USE OF INHALED STERO 07/15/2018 SONYA TRONCOSOBRETT Ot Z80.3 FAMILY HISTORY OF MALIGNANT NEOPLASM OF 07/15/2018 SONYA TRONCOSO BRETT Ivett Ot Z86.19 PERSONAL HISTORY OF OTHER INFECTIOUS AND 07/15/2018 SONYA TRONCOSO BRETT K Ot Z87.19 PERSONAL HISTORY OF OTHER DISEASES OF TH 07/15/2018 SONYA TRONCOSO BRETT Ivett Ot Z87.440 PERSONAL HISTORY OF URINARY (TRACT) INFE 08/12/2018 JOSE ROACH APRN Ot R00 .2 PALPITATIONS 08/12/2018 JOSE ROACH APRN Ot R07 .9 CHEST PAIN, UNSPECIFIED 12/12/2018 BRINA CM MD Ot A60.9 ANOGENITAL HERPESVIRAL INFECTION, UNSPEC 12/12/2018 BRINA CM MD, Ot A74.9 CHLAMYDIAL INFECTION, UNSPECIFIED 12/12/2018 BRINA CM MD Ot E66.0 1 MORBID (SEVERE) OBESITY DUE TO EXCESS CA 12/12/2018 BRINA CM MD, Ot J44.9 CHRONIC OBSTRUCTIVE PULMONARY DISEASE, U 12/12/2018 BRINA CM MD Ot O98.3 2 OTH INFECTIONS W SEXL MODE OF TRANSMISS 12/12/2018 BRINA CM MD Ot O99.2 14 OBESITY COMPLICATING CHILDBIRTH 12/12/2018 BRINA MC MD Ot O99.5 2 DISEASES OF THE RESPIRATORY SYSTEM COMPL 12/12/2018 BRINA CM MD Ot O99.8 24 STREPTOCOCCUS B CARRIER STATE COMPLICATI 12/12/2018 BRINA CM MD, Ot Z37.0 SINGLE LIVE 12/12/2018 BRINA CM MD, Ot Z3A.3 8 38 WEEKS GESTATION OF 12/12/2018 BRINA CM MD, Ot Z79.8 99 OTHER RESIDENTIAL (CURRENT) DRUG THERAPY 12/15/2018 JOSE ROACH APRN Ot R00 .2 PALPITATIONS 12/15/2018 JOSE ROACH APRN Ot R07 .9 CHEST PAIN, UNSPECIFIED 12/17/2018 APRIL FONSECA MD Ot E66. 01 MORBID (SEVERE) OBESITY DUE TO EXCESS CA 12/17/2018 APRIL FONSECA MD Ot F17.210 NICOTINE DEPENDENCE, CIGARETTES, UNCOMPL 12/17/2018 APRIL FONSECA MD Ot F32. 9 MAJOR DEPRESSIVE DISORDER, SINGLE EPISOD 12/17/2018 APRIL FONSECA MD, Ot J44. 9 CHRONIC OBSTRUCTIVE PULMONARY DISEASE, U 12/17/2018 APRIL FONSECA MD Ot J45.901 UNSPECIFIED ASTHMA WITH (ACUTE) EXACERBA 12/17/2018 APRIL FONSECA MD Ot K21. 9 GASTRO-ESOPHAGEAL REFLUX DISEASE WITHOUT 12/17/2018 APRIL FONSECA MD Ot O16. 5 UNSPECIFIED MATERNAL HYPERTENSION, COMP 12/17/2018 APRIL FONSECA MD Ot O99. 03 ANEMIA COMPLICATING THE PUERPERIUM 12/17/2018 APRIL FONSECA MD Ot O99.215 OBESITY COMPLICATING THE PUERPERIUM 12/17/2018 APRIL FONSECA MD Ot O99.335 SMOKING (TOBACCO) COMPLICATING THE PUERP 12/17/2018 APRIL FONSECA MD Ot O99.345 OTHER MENTAL DISORDERS COMPLICATING THE 12/17/2018 APRIL FONSECA MD Ot O99. 53 DISEASES OF THE RESP SYS COMPLICATING TH 12/17/2018 APRIL FONSECA MD Ot O99. 63 DISEASES OF THE DIGESTIVE SYSTEM COMPLIC 12/17/2018 APRIL FONSECA MD Ot O99. 89 OTH DISEASES AND CONDITIONS COMPL PREG/C 12/17/2018 APRIL FONSECA MD Ot R10. 13 EPIGASTRIC PAIN 12/17/2018 APRIL FONSECA MD Ot Z68. 43 BODY MASS INDEX (BMI) 50-59.9, ADULT 12/17/2018 APRIL FONSECA MD, Ot Z80. 3 FAMILY HISTORY OF MALIGNANT NEOPLASM OF 12/17/2018 APRIL FONSECA MD, Ot Z82. 49 FAMILY HX OF ISCHEM HEART DIS AND OTH DI 12/24/2018 BRINA CM MD, Ot O14.9 5 UNSPECIFIED PRE-ECLAMPSIA, COMPLICATING 12/24/2018 BRINA CM MD, Ot Z3A.0 0 WEEKS OF GESTATION OF NOT SPEC 04/09/2019 SHEILA PICKENS MD, Ot D64.9 ANEMIA, UNSPECIFIED 04/09/2019 SHEILA PICKENS MD, Ot E66.01 MORBID (SEVERE) OBESITY DUE TO EXCESS CA 04/09/2019 SHEILA PICKENS MD, Ot F17.210 NICOTINE DEPENDENCE, CIGARETTES, UNCOMPL 04/09/2019 SHEILA PICKENS MD, Ot F32.9 MAJOR DEPRESSIVE DISORDER, SINGLE EPISOD 04/09/2019 SHEILA PICKENS MD, Ot I10 ESSENTIAL (PRIMARY) HYPERTENSION 04/09/2019 SHEILA PICKENS MD, Ot J44.9 CHRONIC OBSTRUCTIVE PULMONARY DISEASE, U 04/09/2019 SHEILA PICKENS MD, Ot K21.9 GASTRO-ESOPHAGEAL REFLUX DISEASE WITHOUT 04/09/2019 SHEILA PICKENS MD, Ot R10.9 UNSPECIFIED ABDOMINAL PAIN 04/09/2019 SHEILA PICKENS MD, Ot Z68.43 BODY MASS INDEX (BMI) 50.0-59.9, ADULT 04/09/2019 SHEILA PICKENS MD, Ot 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 04/09/2019 SHEILA PICKENS MD, Ot Z80.3 FAMILY HISTORY OF MALIGNANT NEOPLASM OF 04/09/2019 SHEILA PICKENS MD, Ot Z82.49 FAMILY HX OF ISCHEM HEART DIS AND OTH DI 04/09/2019 SHEILA PICKENS MD, Ot Z87.440 PERSONAL HISTORY OF URINARY (TRACT) INFE Procedures Code Description Performed By Per jean carlos On [id number] WILLIAN OF [employer], EXTE 10/16/2017 [id number] IN TRODUCTION OF OTH HORMONE INTO PERIPH 10/16/2017 [id number] YANNI ROSHAN OF [employer], EXTE 12/10/2018 [id number] IN TRODUCTION OF OTH HORMONE INTO PERIPH 12/10/2018 Results Test Result Range CBC - 07/31/17 10:12 WHITE BLOOD CELL COUNT 9.7 Thousand/uL 3 .8-10.8 RED BLOOD CELL COUNT 4.03 Million/uL 3.8 0-5.10 HEMOGLOBIN 10.8 g/dL 11.7-15.5 HEMATOCRIT 33.5 % 35.0-45.0 MCV 83.1 fL 80.0-100.0 MCH 26.8 pg 27.0-33.0 MCHC 32.2 g/dL 32.0-36.0 RDW 12.6 % 11.0-15.0 PLATELET COUNT 304 Thousand/uL 140-400 MPV 9.4 fL 7.5-12.5 ABSOLUTE NEUTROPHILS 6548 cells/uL 1500- 7800 ABSOLUTE LYMPHOCYTES 2095 cells/uL 850-3 900 ABSOLUTE MONOCYTES 698 cells/uL 200-950 ABSOLUTE EOSINOPHILS 330 cells/uL 15-500 ABSOLUTE BASOPHILS 29 cells/uL 0-200 NEUTROPHILS 67.5 % NRG LYMPHOCYTES 21.6 % NRG MONOCYTES 7.2 % NRG EOSINOPHILS 3.4 % NRG BASOPHILS 0.3 % NRG Complete urinalysis with reflex to cultu re - 09/01/17 12:25 Urine color determination YELLOW NRG Urine clarity determination CLEAR NR G Urine pH measurement by test strip 5 5-9 Specific gravity of urine by test strip 1.025 1.016-1.022 Urine protein assay by test strip, semi-quantitative 1+ NEGATIVE Urine glucose detection by automated test strip NE GATIVE NEGATIVE Erythrocytes detection in urine sediment by light micr oscopy 4+ NEGATIVE Urine ketones detection by automated test strip NE GATIVE NEGATIVE Urine nitrite detection by test strip NEGATIVE NEGATIVE Urine total bilirubin detection by test strip NEGA TIVE NEGATIVE Urine urobilinogen measurement by automated test strip (mass/volume) 1 mg/dL NORMAL Urine leukocyte esterase detection by dipstick 2+ NEGATIVE Automated urine sediment erythrocyte cou nt by microscopy (number/high power field) [HPF] NRG Automated urine sediment leukocyte count by microscopy (number/high power field) [HPF] NRG Bacteria detection in urine sediment by light microsco py NEGATIVE NRG Squamous epithelial cells detection in u rine sediment by light microscopy 5-10 NRG Crystals detection in urine sediment by light microsco py NONE NRG Casts detection in urine sediment by light microscopy NONE NRG Mucus detection in urine sediment by light microscopy NEGATIVE NRG Complete urinalysis with reflex to culture NO NRG Complete blood count (CBC) with automate d white blood cell (WBC) differential - 09/01/17 12:37 Blood leukocytes automated count (number/volume) 10.7 10*3/uL 4.3-11.0 Blood erythrocytes automated count (number/volume) 3.96 10*6/uL 4.35-5.85 Venous blood hemoglobin measurement (mass/volume) 10.5 g/dL 11.5-16.0 Blood hematocrit (volume fraction) 34 % 35-52 Automated erythrocyte mean corpuscular volume 85 [ foz_us] 80-99 Automated erythrocyte mean corpuscular h emoglobin (mass per erythrocyte) 27 pg 25-34 Automated erythrocyte mean corpuscular h emoglobin concentration measurement (mass/volume) 31 g/dL 32-36 Automated erythrocyte distribution width ratio 13. 5 % 10.0- 14.5 Automated blood platelet count (count/volume) 290 10*3/uL [...] 10*3 1.0-4.0 Blood monocytes automated count (number/volume) 0. 9 10*3 0.0-1.0 Automated eosinophil count 0.1 10*3/uL 0 .0-0.3 Automated blood basophil count (count/volume) 0.0 10*3/uL 0.0-0.1 Comprehensive metabolic panel - 09/01/17 12:37 Serum or plasma sodium measurement (moles/volume) 139 mmol/L 135-145 Serum or plasma potassium measurement (moles/volume) 3.6 mmol/L 3.6-5.0 Serum or plasma chloride measurement (moles/volume) 109 mmol/L 98-107 Carbon dioxide 24 mmol/L 21-32 Serum or plasma anion gap determination (moles/volume) 6 mmol/L 5-14 Serum or plasma urea nitrogen measurement (mass/volume ) 6 mg/dL 7-18 Serum or plasma creatinine measurement (mass/volume) 0.62 mg/dL 0.60-1.30 Serum or plasma urea nitrogen/creatinine mass ratio 10 NRG Serum or plasma creatinine measurement w ith calculation of estimated glomerular filtration rate > NRG Serum or plasma glucose measurement (mass/volume) 85 mg/dL 70-105 Serum or plasma calcium measurement (mass/volume) 8.9 mg/dL 8.5-10.1 Serum or plasma total bilirubin measurement (mass/volu me) 0.2 mg/dL 0.1-1.0 Serum or plasma alkaline phosphatase osman surement (enzymatic activity/volume) 96 U/L 40-136 Serum or plasma aspartate aminotransfera se measurement (enzymatic activity/volume) 16 U/L 5-34 Serum or plasma alanine aminotransferase measurement (enzymatic activity/volume) 13 U/L 0-55 Serum or plasma protein measurement (mass/volume) 6.3 g/dL 6.4-8.2 Serum or plasma albumin measurement (mass/volume) 3.1 g/dL 3.2-4.5 Serum or plasma uric acid measurement (m ass/volume) - 09/01/17 12:37 Serum or plasma uric acid measurement (mass/volume) 3.2 mg/dL 2.6-7.2 Lactate dehydrogenase 1 [enzymatic activ ity/volume] in serum or plasma - 09/01/17 12:37 Lactate dehydrogenase 1 [enzymatic activ ity/volume] in serum or plasma 312 U/L 125-220 Blood manual differential performed dete ction - 09/01/17 12:37 Blood monocytes/100 leukocytes 5 % NRG Manual blood segmented neutrophils/100 leukocytes 85 % NRG Blood band neutrophils/100 leukocytes 0 % NRG Manual blood lymphocytes/100 leukocytes 8 % NRG Manual eosinophils/100 leukocytes in nose 2 % NRG Manual blood basophils/100 leukocytes 0 % NRG Blood erythrocyte morphology finding identification NORMAL NRG Complete urinalysis with reflex to cultu re - 09/18/17 12:00 Urine color determination YELLOW NRG Urine clarity determination CLEAR NR G Urine pH measurement by test strip 6.5 5-9 Specific gravity of urine by test strip 1.015 1.016-1.022 Urine protein assay by test strip, semi-quantitative NEGATIVE NEGATIVE Urine glucose detection by automated test strip NE GATIVE NEGATIVE Erythrocytes detection in urine sediment by light micr oscopy 4+ NEGATIVE Urine ketones detection by automated test strip 1+ NEGATIVE Urine nitrite detection by test strip NEGATIVE NEGATIVE Urine total bilirubin detection by test strip NEGA TIVE NEGATIVE Urine urobilinogen measurement by automated test strip (mass/volume) NORMAL NORMAL Urine leukocyte esterase detection by dipstick 1+ NEGATIVE Automated urine sediment erythrocyte cou nt by microscopy (number/high power field) [HPF] NRG Automated urine sediment leukocyte count by microscopy (number/high power field) RARE NRG Bacteria detection in urine sediment by light microsco py TRACE NRG Squamous epithelial cells detection in u rine sediment by light microscopy 5-10 NRG Crystals detection in urine sediment by light microsco py NONE NRG Casts detection in urine sediment [...] NRG Urine drug screening test - 09/18/17 12: 00 Urine phencyclidine detection by screening method NEGATIVE NEGATIVE Urine benzodiazepines detection by screening method NEGATIVE NEGATIVE Urine cocaine detection NEGATIVE NEGATI VE Urine amphetamines detection by screening method N EGATIVE NEGATIVE Urine methamphetamine detection by screening method NEGATIVE NEGATIVE Urine cannabinoids detection by screening method P OSITIVE NEGATIVE Urine opiates detection by screening method NEGATI VE NEGATIVE Urine barbiturates detection NEGATIVE N EGATIVE Screening urine tricyclic antidepressants detection NEGATIVE NEGATIVE Urine methadone detection by screening method NEGA TIVE NEGATIVE Urine oxycodone detection NEGATIVE NEGA TIVE Urine propoxyphene detection NEGATIVE N EGATIVE Complete blood count (CBC) with automate d white blood cell (WBC) differential - 09/18/17 12:35 Blood leukocytes automated count (number/volume) 10.3 10*3/uL 4.3-11.0 Blood erythrocytes automated count (number/volume) 3.55 10*6/uL 4.35-5.85 Venous blood hemoglobin measurement (mass/volume) 9.6 g/dL 11.5-16.0 Blood hematocrit (volume fraction) 30 % 35-52 Automated erythrocyte mean corpuscular volume 83 [ foz_us] 80-99 Automated erythrocyte mean corpuscular h emoglobin (mass per erythrocyte) 27 pg 25-34 Automated erythrocyte mean corpuscular h emoglobin concentration measurement (mass/volume) 32 g/dL 32-36 Automated erythrocyte distribution width ratio 13. 2 % 10.0- 14.5 Automated blood platelet count (count/volume) 314 10*3/uL [...] 10*3 1.0-4.0 Blood monocytes automated count (number/volume) 1. 4 10*3 0.0-1.0 Automated eosinophil count 0.0 10*3/uL 0 .0-0.3 Automated blood basophil count (count/volume) 0.0 10*3/uL 0.0-0.1 Comprehensive metabolic panel - 09/18/17 12:35 Serum or plasma sodium measurement (moles/volume) 135 mmol/L 135-145 Serum or plasma potassium measurement (moles/volume) 3.2 mmol/L 3.6-5.0 Serum or plasma chloride measurement (moles/volume) 106 mmol/L 98-107 Carbon dioxide 19 mmol/L 21-32 Serum or plasma anion gap determination (moles/volume) 10 mmol/L 5-14 Serum or plasma urea nitrogen measurement (mass/volume ) 4 mg/dL 7-18 Serum or plasma creatinine measurement (mass/volume) 0.58 mg/dL 0.60-1.30 Serum or plasma urea nitrogen/creatinine mass ratio 7 NRG Serum or plasma creatinine measurement w ith calculation of estimated glomerular filtration rate > NRG Serum or plasma glucose measurement (mass/volume) 90 mg/dL 70-105 Serum or plasma calcium measurement (mass/volume) 8.4 mg/dL 8.5-10.1 Serum or plasma total bilirubin measurement (mass/volu me) 0.5 mg/dL 0.1-1.0 Serum or plasma alkaline phosphatase osman surement (enzymatic activity/volume) 89 U/L 40-136 Serum or plasma aspartate aminotransfera se measurement (enzymatic activity/volume) 12 U/L 5-34 Serum or plasma alanine aminotransferase measurement (enzymatic activity/volume) 12 U/L 0-55 Serum or plasma protein measurement (mass/volume) 5.7 g/dL 6.4-8.2 Serum or plasma albumin measurement (mass/volume) 2.9 g/dL 3.2-4.5 CULTURE, GROUP B STREP (VAGINAL) - 10/01 13:23 STREPTOCOCCUS, GROUP B CULTURE SEE NOTE NRG Complete urinalysis with reflex to cultu re - 10/16/17 07:40 Urine color determination YELLOW NRG Urine clarity determination CLEAR NR G Urine pH measurement by test strip 6 5-9 Specific gravity of urine by test strip 1.020 1.016-1.022 Urine protein assay by test strip, semi-quantitative 1+ NEGATIVE Urine glucose detection by automated test strip NE GATIVE NEGATIVE Erythrocytes detection in urine sediment by light micr oscopy 4+ NEGATIVE Urine ketones detection by automated test strip NE GATIVE NEGATIVE Urine nitrite detection by test strip NEGATIVE NEGATIVE Urine total bilirubin detection by test strip NEGA TIVE NEGATIVE Urine urobilinogen measurement by automated test strip (mass/volume) NORMAL NORMAL Urine leukocyte esterase detection by dipstick 2+ NEGATIVE Automated urine sediment erythrocyte cou nt by microscopy (number/high power field) [HPF] NRG Automated urine sediment leukocyte count by microscopy (number/high power field) [HPF] NRG Bacteria detection in urine sediment by light microsco py NEGATIVE NRG Squamous epithelial cells detection in u rine sediment by light microscopy 5-10 NRG Crystals detection in urine sediment by light microsco py NONE NRG Casts detection in urine sediment by light microscopy NONE NRG Mucus detection in urine sediment by light microscopy NEGATIVE NRG Complete urinalysis with reflex to culture NO NRG Complete blood count (CBC) with automate d white blood cell (WBC) differential - 10/16/17 08:10 Blood leukocytes automated count (number/volume) 8.9 10*3/uL 4.3-11.0 Blood erythrocytes automated count (number/volume) 3.65 10*6/uL 4.35-5.85 Venous blood hemoglobin measurement (mass/volume) 9.8 g/dL 11.5-16.0 Blood hematocrit (volume fraction) 31 % 35-52 Automated erythrocyte mean corpuscular volume 84 [ foz_us] 80-99 Automated erythrocyte mean corpuscular h emoglobin (mass per erythrocyte) 27 pg 25-34 Automated erythrocyte mean corpuscular h emoglobin concentration measurement (mass/volume) 32 g/dL 32-36 Automated erythrocyte distribution width ratio 14. 2 % 10.0- 14.5 Automated blood platelet count (count/volume) 278 10*3/uL [...] 10*3 1.0-4.0 Blood monocytes automated count (number/volume) 0. 8 10*3 0.0-1.0 Automated eosinophil count 0.2 10*3/uL 0 .0-0.3 Automated blood basophil count (count/volume) 0.0 10*3/uL 0.0-0.1 Blood type T Indirect antibody screen pa castillo - 10/16/17 08:10 ABO+Rh group BP NRG Transfusion band number [id number] [facility] Blood group antibody screen NEGATIVE NR G Complete blood count (CBC) with automate d white blood cell (WBC) differential - 10/17/17 05:41 Blood leukocytes automated count (number/volume) 9.0 10*3/uL 4.3-11.0 Blood erythrocytes automated count (number/volume) 3.83 10*6/uL 4.35-5.85 Venous blood hemoglobin measurement (mass/volume) 10.1 g/dL 11.5-16.0 Blood hematocrit (volume fraction) 32 % 35-52 Automated erythrocyte mean corpuscular volume 84 [ foz_us] 80-99 Automated erythrocyte mean corpuscular h emoglobin (mass per erythrocyte) 26 pg 25-34 Automated erythrocyte mean corpuscular h emoglobin concentration measurement (mass/volume) 32 g/dL 32-36 Automated erythrocyte distribution width ratio 14. 3 % 10.0- 14.5 Automated blood platelet count (count/volume) 284 10*3/uL [...] 10*3 1.0-4.0 Blood monocytes automated count (number/volume) 0. 9 10*3 0.0-1.0 Automated eosinophil count 0.2 10*3/uL 0 .0-0.3 Automated blood basophil count (count/volume) 0.0 10*3/uL 0.0-0.1 CULTURE, GENITAL - 01/08/18 15:34 CULTURE, GENITAL SEE NOTE NRG Complete urinalysis with reflex to cultu re - 04/27/18 20:39 Urine color determination YELLOW NRG Urine clarity determination CLEAR NR G Urine pH measurement by test strip 6 5-9 Specific gravity of urine by test strip 1.020 1.016-1.022 Urine protein assay by test strip, semi-quantitative NEGATIVE NEGATIVE Urine glucose detection by automated test strip NE GATIVE NEGATIVE Erythrocytes detection in urine sediment by light micr oscopy 2+ NEGATIVE Urine ketones detection by automated test strip NE GATIVE NEGATIVE Urine nitrite detection by test strip NEGATIVE NEGATIVE Urine total bilirubin detection by test strip NEGA TIVE NEGATIVE Urine urobilinogen measurement by automated test strip (mass/volume) 1 mg/dL NORMAL Urine leukocyte esterase detection by dipstick NEG ATIVE NEGATIVE Automated urine sediment erythrocyte cou nt by microscopy (number/high power field) [HPF] NRG Automated urine sediment leukocyte count by microscopy (number/high power field) NONE NRG Bacteria detection in urine sediment by light microsco py NONE NRG Squamous epithelial cells detection in u rine sediment by light microscopy 5-10 NRG Crystals detection in urine sediment by light microsco py NONE NRG Casts detection in urine sediment by light microscopy NONE NRG Mucus detection in urine sediment by light microscopy NEGATIVE NRG Complete urinalysis with reflex to culture NO NRG Whole blood basic metabolic panel - 04/18 21:20 Serum or plasma sodium measurement (moles/volume) 139 mmol/L 135-145 Serum or plasma potassium measurement (moles/volume) 3.7 mmol/L 3.6-5.0 Serum or plasma chloride measurement (moles/volume) 105 mmol/L 98-107 Carbon dioxide 21 mmol/L 21-32 Serum or plasma anion gap determination (moles/volume) 13 mmol/L 5-14 Serum or plasma urea nitrogen measurement (mass/volume ) 11 mg/dL 7-18 Serum or plasma creatinine measurement (mass/volume) 0.79 mg/dL 0.60-1.30 Serum or plasma urea nitrogen/creatinine mass ratio 14 NRG Serum or plasma creatinine measurement w ith calculation of estimated glomerular filtration rate > NRG Serum or plasma glucose measurement (mass/volume) 103 mg/dL 70-105 Serum or plasma calcium measurement (mass/volume) 8.8 mg/dL 8.5-10.1 PT panel in platelet poor plasma by coag ulation assay - 04/27/18 21:20 Prothrombin time (PT) in platelet poor plasma by coagu lation assay 13.1 s 12.2-14.7 INR in platelet poor plasma or blood by coagulation as say 1.0 0.8-1.4 Activated partial thromboplastin time (a PTT) in platelet poor plasma bycoagulation assay - 04/27/18 21:20 Activated partial thromboplastin time (a PTT) in platelet poor plasma bycoagulation assay 30 s 24-35 Complete blood count (CBC) with automate d white blood cell (WBC) differential - 04/27/18 21:20 Blood leukocytes automated count (number/volume) 12.0 10*3/uL 4.3-11.0 Blood erythrocytes automated count (number/volume) 4.63 10*6/uL 4.35-5.85 Venous blood hemoglobin measurement (mass/volume) 12.1 g/dL 11.5-16.0 Blood hematocrit (volume fraction) 39 % 35-52 Automated erythrocyte mean corpuscular volume 85 [ foz_us] 80-99 Automated erythrocyte mean corpuscular h emoglobin (mass per erythrocyte) 26 pg 25-34 Automated erythrocyte mean corpuscular h emoglobin concentration measurement (mass/volume) 31 g/dL 32-36 Automated erythrocyte distribution width ratio 14. 0 % 10.0- 14.5 Automated blood platelet count (count/volume) 314 10*3/uL [...] 10*3 1.0-4.0 Blood monocytes automated count (number/volume) 0. 8 10*3 0.0-1.0 Automated eosinophil count 0.2 10*3/uL 0 .0-0.3 Automated blood basophil count (count/volume) 0.0 10*3/uL 0.0-0.1 Serum or plasma choriogonadotropin measu rement (units/volume) - 04/27/18 21:20 Serum or plasma choriogonadotropin measurement (units/ volume) 85549 m[iU]/mL <5 Complete blood count (CBC) with automate d white blood cell (WBC) differential - 05/02/18 13:10 Blood leukocytes automated count (number/volume) 9.7 10*3/uL 4.3-11.0 Blood erythrocytes automated count (number/volume) 4.82 10*6/uL 4.35-5.85 Venous blood hemoglobin measurement (mass/volume) 12.6 g/dL 11.5-16.0 Blood hematocrit (volume fraction) 41 % 35-52 Automated erythrocyte mean corpuscular volume 85 [ foz_us] 80-99 Automated erythrocyte mean corpuscular h emoglobin (mass per erythrocyte) 26 pg 25-34 Automated erythrocyte mean corpuscular h emoglobin concentration measurement (mass/volume) 31 g/dL 32-36 Automated erythrocyte distribution width ratio 13. 8 % 10.0- 14.5 Automated blood platelet count (count/volume) 299 10*3/uL [...] 10*3 1.0-4.0 Blood monocytes automated count (number/volume) 0. 7 10*3 0.0-1.0 Automated eosinophil count 0.3 10*3/uL 0 .0-0.3 Automated blood basophil count (count/volume) 0.0 10*3/uL 0.0-0.1 Whole blood basic metabolic panel - 04/18 08/03 13:10 Serum or plasma sodium measurement (moles/volume) 138 mmol/L 135-145 Serum or plasma potassium measurement (moles/volume) 3.7 mmol/L 3.6-5.0 Serum or plasma chloride measurement (moles/volume) 105 mmol/L 98-107 Carbon dioxide 24 mmol/L 21-32 Serum or plasma anion gap determination (moles/volume) 9 mmol/L 5-14 Serum or plasma urea nitrogen measurement (mass/volume ) 7 mg/dL 7-18 Serum or plasma creatinine measurement (mass/volume) 0.78 mg/dL 0.60-1.30 Serum or plasma urea nitrogen/creatinine mass ratio 9 NRG Serum or plasma creatinine measurement w ith calculation of estimated glomerular filtration rate > NRG Serum or plasma glucose measurement (mass/volume) 94 mg/dL 70-105 Serum or plasma calcium measurement (mass/volume) 9.1 mg/dL 8.5-10.1 THYROID STIMULATING HORMONE - 05/02/18 1 3:10 THYROID STIMULATING HORMONE 0.34 u[iU]/mL 0.35-4.94 Serum or plasma choriogonadotropin measu rement (units/volume) - 05/02/18 13:10 Serum or plasma choriogonadotropin measurement (units/ volume) 68438 m[iU]/mL <5 Magnesium - 05/02/18 13:10 Magnesium 1.9 mg/dL 1.8-2.4 Serum or plasma lithium measurement (mol es/volume) - 05/02/18 13:10 BNP level 13.8 pg/mL <100.0 Serum or plasma troponin i.cardiac measu rement (mass/volume) - 05/02/18 13:10 Serum or plasma troponin i.cardiac measurement (mass/v olume) < ng/mL <0.028 Serum or plasma thyroxine (T4) free [place] urement (mass/volume) - 05/02/18 13:10 Serum or plasma thyroxine (T4) free measurement (mass/ volume) 1.02 ng/dL 0.70-1.48 Urine drug screening test - 05/02/18 14: 37 Urine phencyclidine detection by screening method NEGATIVE NEGATIVE Urine benzodiazepines detection by screening method NEGATIVE NEGATIVE Urine cocaine detection NEGATIVE NEGATI VE Urine amphetamines detection by screening method N EGATIVE NEGATIVE Urine methamphetamine detection by screening method NEGATIVE NEGATIVE Urine cannabinoids detection by screening method P OSITIVE NEGATIVE Urine opiates detection by screening method NEGATI VE NEGATIVE Urine barbiturates detection NEGATIVE N EGATIVE Screening urine tricyclic antidepressants detection NEGATIVE NEGATIVE Urine methadone detection by screening method NEGA TIVE NEGATIVE Urine oxycodone detection NEGATIVE NEGA TIVE Urine propoxyphene detection NEGATIVE N EGATIVE CULTURE, GENITAL - 05/13/18 12:41 CULTURE, GENITAL SEE NOTE [facility] SUREPATH PAP AND HPV mRNA E6/E7 - 12:46 CLINICAL INFORMATION: NR LMP: 02/2018 NR PREV. PAP: NONE GIVEN NR PREV. BX: NONE GIVEN NR SOURCE: [employer] NR STATEMENT OF ADEQUACY: NR INTERPRETATION/RESULT: [facility] [employer] SYSTEM ADMINISTRATOR: NRG HPV mRNA E6/E7, SUREPATH VIAL Not Detected NOT DETECTED GENERAL CATEGORIZATION: NR COMMENT: NR PATHOLOGIST: NR COMMENT [facility] Complete blood count (CBC) with automate d white blood cell (WBC) differential - 06/14/18 19:43 Blood leukocytes automated count (number/volume) 9.3 10*3/uL 4.3-11.0 Blood erythrocytes automated count (number/volume) 4.83 10*6/uL 4.35-5.85 Venous blood hemoglobin measurement (mass/volume) 12.7 g/dL 11.5-16.0 Blood hematocrit (volume fraction) 40 % 35-52 Automated erythrocyte mean corpuscular volume 83 [ foz_us] 80-99 Automated erythrocyte mean corpuscular h emoglobin (mass per erythrocyte) 26 pg 25-34 Automated erythrocyte mean corpuscular h emoglobin concentration measurement (mass/volume) 32 g/dL 32-36 Automated erythrocyte distribution width ratio 13. 5 % 10.0- 14.5 Automated blood platelet count (count/volume) 337 10*3/uL 130-400 Automated blood platelet mean volume measurement 8.9 [foz_us] 7.4-10.4 Automated blood neutrophils/100 leukocytes 62 % 42-75 Automated blood lymphocytes/100 leukocytes 24 % 12-44 Blood monocytes/100 leukocytes 8 % 0-12 Automated blood eosinophils/100 leukocytes 7 % 0-10 Automated blood basophils/100 leukocytes 0 % 0-10 Blood neutrophils automated count (number/volume) 5.7 10*3 1.8-7.8 Blood lymphocytes automated count (number/volume) 2.2 10*3 1.0-4.0 Blood monocytes automated count (number/volume) 0. 7 10*3 0.0-1.0 Automated eosinophil count 0.6 10*3/uL 0 .0-0.3 Automated blood basophil count (count/volume) 0.0 10*3/uL 0.0-0.1 PT panel in platelet poor plasma by coag ulation assay - 06/14/18 19:43 Prothrombin time (PT) in platelet poor plasma by coagu lation assay 12.8 s 12.2-14.7 INR in platelet poor plasma or blood by coagulation as say 0.9 0.8-1.4 Activated partial thromboplastin time (a PTT) in platelet poor plasma bycoagulation assay - 06/14/18 19:43 Activated partial thromboplastin time (a PTT) in platelet poor plasma bycoagulation assay 33 s 24-35 Comprehensive metabolic panel - 06/14/18 19:43 Serum or plasma sodium measurement (moles/volume) 137 mmol/L 135-145 Serum or plasma potassium measurement (moles/volume) 3.7 mmol/L 3.6-5.0 Serum or plasma chloride measurement (moles/volume) 106 mmol/L 98-107 Carbon dioxide 20 mmol/L 21-32 Serum or plasma anion gap determination (moles/volume) 11 mmol/L 5-14 Serum or plasma urea nitrogen measurement (mass/volume ) 8 mg/dL 7-18 Serum or plasma creatinine measurement (mass/volume) 0.85 mg/dL 0.60-1.30 Serum or plasma urea nitrogen/creatinine mass ratio 9 NRG Serum or plasma creatinine measurement w ith calculation of estimated glomerular filtration rate > NRG Serum or plasma glucose measurement (mass/volume) 85 mg/dL 70-105 Serum or plasma calcium measurement (mass/volume) 9.9 mg/dL 8.5-10.1 Serum or plasma total bilirubin measurement (mass/volu me) 0.2 mg/dL 0.1-1.0 Serum or plasma alkaline phosphatase osman surement (enzymatic activity/volume) 68 U/L 40-136 Serum or plasma aspartate aminotransfera se measurement (enzymatic activity/volume) 15 U/L 5-34 Serum or plasma alanine aminotransferase measurement (enzymatic activity/volume) 14 U/L 0-55 Serum or plasma protein measurement (mass/volume) 7.0 g/dL 6.4-8.2 Serum or plasma albumin measurement (mass/volume) 3.6 g/dL 3.2-4.5 CALCIUM CORRECTED 10.2 mg/dL 8.5-10.1 Magnesium - 06/14/18 19:43 Magnesium 1.6 mg/dL 1.8-2.4 Serum or plasma lithium measurement (mol es/volume) - 06/14/18 19:43 BNP level 13.4 pg/mL <100.0 Sputum Gram stain - 06/14/18 19:53 Sputum Gram stain Mixed bacterial comfort NR Bacterial sputum culture - 06/14/18 19:5 3 QUANTITY OF GROWTH . NRG Bacterial sputum culture USUAL RESP NRG Complete urinalysis with reflex to cultu re - 06/14/18 19:54 Urine color determination YELLOW NRG Urine clarity determination CLEAR NR G Urine pH measurement by test strip 5 5-9 Specific gravity of urine by test strip 1.025 1.016-1.022 Urine protein assay by test strip, semi-quantitative 1+ NEGATIVE Urine glucose detection by automated test strip NE GATIVE NEGATIVE Erythrocytes detection in urine sediment by light micr oscopy 4+ NEGATIVE Urine ketones detection by automated test strip NE GATIVE NEGATIVE Urine nitrite detection by test strip NEGATIVE NEGATIVE Urine total bilirubin detection by test strip NEGA TIVE NEGATIVE Urine urobilinogen measurement by automated test strip (mass/volume) NORMAL NORMAL Urine leukocyte esterase detection by dipstick 1+ NEGATIVE Automated urine sediment erythrocyte cou nt by microscopy (number/high power field) [HPF] NRG Automated urine sediment leukocyte count by microscopy (number/high power field) RARE NRG Bacteria detection in urine sediment by light microsco py TRACE NRG Squamous epithelial cells detection in u rine sediment by light microscopy 2-5 NRG Crystals detection in urine sediment by light microsco py NONE NRG Casts detection in urine sediment by light microscopy NONE NRG Mucus detection in urine sediment by light microscopy SMALL NRG Complete urinalysis with reflex to culture NO NRG Influenza virus A and B antigen detectio n - 06/14/18 19:55 FLU RESULT NEGATIVE FOR INFLUENZA A AND B ANTIGENS BY IA NRG Urine drug screening test - 06/15/18 01: 48 Urine phencyclidine detection by screening method NEGATIVE NEGATIVE Urine benzodiazepines detection by screening method NEGATIVE NEGATIVE Urine cocaine detection NEGATIVE NEGATI VE Urine amphetamines detection by screening method N EGATIVE NEGATIVE Urine methamphetamine detection by screening method NEGATIVE NEGATIVE Urine cannabinoids detection by screening method P OSITIVE NEGATIVE Urine opiates detection by screening method NEGATI VE NEGATIVE Urine barbiturates detection NEGATIVE N EGATIVE Screening urine tricyclic antidepressants detection NEGATIVE NEGATIVE Urine methadone detection by screening method NEGA TIVE NEGATIVE Urine oxycodone detection NEGATIVE NEGA TIVE Urine propoxyphene detection NEGATIVE N EGATIVE CULTURE, URINE - 06/23/18 16:20 CULTURE, URINE, ROUTINE SEE NOTE NRG SYPHILIS (RPR W/ REFLEX CONFIRMATION) - 09/23/18 15:49 RPR (DX) W/REFL TITER AND CONFIRMATORY TESTING NON-REACTIVE NON-REACTIVE GC/CHLAMYDIA (SWAB OR URINE)-RAPID - 12/04 15:49 CHLAMYDIA TRACHOMATIS RNA, TMA DETECTED NOT DETECTED NEISSERIA GONORRHOEAE RNA, TMA NOT DETECTED NOT DETECTED COMMENT NRG CULTURE, URINE - 11/11/18 18:27 CULTURE, URINE, ROUTINE SEE NOTE NRG CULTURE, GENITAL - 11/11/18 18:27 CULTURE, GENITAL SEE NOTE NRG CULTURE, GROUP B STREP (VAGINAL) - 11/11 18:27 STREPTOCOCCUS, GROUP B CULTURE SEE NOTE NRG CULTURE, CHLAMYDIA - 11/11/18 18:27 RESULT: NOT ISOLATED NRG CULTURE, GROUP B STREP (VAGINAL) - 11/25 16:41 STREPTOCOCCUS, GROUP B CULTURE SEE NOTE NRG Complete urinalysis with reflex to cultu re - 12/10/18 08:30 Urine color determination YELLOW NRG Urine clarity determination CLEAR NR G Urine pH measurement by test strip 6 5-9 Specific gravity of urine by test strip 1.015 1.016-1.022 Urine protein assay by test strip, semi-quantitative NEGATIVE NEGATIVE Urine glucose detection by automated test strip NE GATIVE NEGATIVE Erythrocytes detection in urine sediment by light micr oscopy 3+ NEGATIVE Urine ketones detection by automated test strip NE GATIVE NEGATIVE Urine nitrite detection by test strip NEGATIVE NEGATIVE Urine total bilirubin detection by test strip NEGA TIVE NEGATIVE Urine urobilinogen measurement by automated test strip (mass/volume) NORMAL NORMAL Urine leukocyte esterase detection by dipstick NEG ATIVE NEGATIVE Automated urine sediment erythrocyte cou nt by microscopy (number/high power field) [HPF] NRG Automated urine sediment leukocyte count by microscopy (number/high power field) [HPF] NRG Bacteria detection in urine sediment by light microsco py TRACE NRG Squamous epithelial cells detection in u rine sediment by light microscopy 5-10 NRG Crystals detection in urine sediment by light microsco py NONE NRG Casts detection in urine sediment by light microscopy NONE NRG Mucus detection in urine sediment by light microscopy SMALL NRG Complete urinalysis with reflex to culture NO NRG Complete blood count (CBC) with automate d white blood cell (WBC) differential - 12/10/18 09:10 Blood leukocytes automated count (number/volume) 9.2 10*3/uL 4.3-11.0 Blood erythrocytes automated count (number/volume) 4.11 10*6/uL 4.35-5.85 Venous blood hemoglobin measurement (mass/volume) 10.5 g/dL 11.5-16.0 Blood hematocrit (volume fraction) 34 % 35-52 Automated erythrocyte mean corpuscular volume 83 [ foz_us] 80-99 Automated erythrocyte mean corpuscular h emoglobin (mass per erythrocyte) 26 pg 25-34 Automated erythrocyte mean corpuscular h emoglobin concentration measurement (mass/volume) 31 g/dL 32-36 Automated erythrocyte distribution width ratio 14. 4 % 10.0- 14.5 Automated blood platelet count (count/volume) 293 10*3/uL 130-400 Automated blood platelet mean volume measurement 9.2 [foz_us] 7.4-10.4 Automated blood neutrophils/100 leukocytes 75 % 42-75 Automated blood lymphocytes/100 leukocytes 14 % 12-44 Blood monocytes/100 leukocytes 7 % 0-12 Automated blood eosinophils/100 leukocytes 5 % 0-10 Automated blood basophils/100 leukocytes 0 % 0-10 Blood neutrophils automated count (number/volume) 6.8 10*3 1.8-7.8 Blood lymphocytes automated count (number/volume) 1.3 10*3 1.0-4.0 Blood monocytes automated count (number/volume) 0. 7 10*3 0.0-1.0 Automated eosinophil count 0.4 10*3/uL 0 .0-0.3 Automated blood basophil count (count/volume) 0.0 10*3/uL 0.0-0.1 Blood type T Indirect antibody screen pa castillo - 12/10/18 09:10 WRISTBAND NUMBER [id number] NRG ABO+Rh group BP NRG Blood group antibody screen NEGATIVE NR G Complete blood count (CBC) with automate d white blood cell (WBC) differential - 12/11/18 06:25 Blood leukocytes automated count (number/volume) 9.1 10*3/uL 4.3-11.0 Blood erythrocytes automated count (number/volume) 4.10 10*6/uL 4.35-5.85 Venous blood hemoglobin measurement (mass/volume) 10.4 g/dL 11.5-16.0 Blood hematocrit (volume fraction) 34 % 35-52 Automated erythrocyte mean corpuscular volume 83 [ foz_us] 80-99 Automated erythrocyte mean corpuscular h emoglobin (mass per erythrocyte) 25 pg 25-34 Automated erythrocyte mean corpuscular h emoglobin concentration measurement (mass/volume) 31 g/dL 32-36 Automated erythrocyte distribution width ratio 14. 7 % 10.0- 14.5 Automated blood platelet count (count/volume) 311 10*3/uL 130-400 Automated blood platelet mean volume measurement 9.2 [foz_us] 7.4-10.4 Automated blood neutrophils/100 leukocytes 71 % 42-75 Automated blood lymphocytes/100 leukocytes 16 % 12-44 Blood monocytes/100 leukocytes 8 % 0-12 Automated blood eosinophils/100 leukocytes 5 % 0-10 Automated blood basophils/100 leukocytes 0 % 0-10 Blood neutrophils automated count (number/volume) 6.4 10*3 1.8-7.8 Blood lymphocytes automated count (number/volume) 1.5 10*3 1.0-4.0 Blood monocytes automated count (number/volume) 0. 7 10*3 0.0-1.0 Automated eosinophil count 0.4 10*3/uL 0 .0-0.3 Automated blood basophil count (count/volume) 0.0 10*3/uL 0.0-0.1 Complete blood count (CBC) with automate d white blood cell (WBC) differential - 12/15/18 01:09 Blood leukocytes automated count (number/volume) 7.8 10*3/uL 4.3-11.0 Blood erythrocytes automated count (number/volume) 4.44 10*6/uL 4.35-5.85 Venous blood hemoglobin measurement (mass/volume) 11.1 g/dL 11.5-16.0 Blood hematocrit (volume fraction) 36 % 35-52 Automated erythrocyte mean corpuscular volume 82 [ foz_us] 80-99 Automated erythrocyte mean corpuscular h emoglobin (mass per erythrocyte) 25 pg 25-34 Automated erythrocyte mean corpuscular h emoglobin concentration measurement (mass/volume) 31 g/dL 32-36 Automated erythrocyte distribution width ratio 14. 6 % 10.0- 14.5 Automated blood platelet count (count/volume) 346 10*3/uL 130-400 Automated blood platelet mean volume measurement 8.9 [foz_us] 7.4-10.4 Automated blood neutrophils/100 leukocytes 57 % 42-75 Automated blood lymphocytes/100 leukocytes 27 % 12-44 Blood monocytes/100 leukocytes 10 % 0-12 Automated blood eosinophils/100 leukocytes 6 % 0-10 Automated blood basophils/100 leukocytes 0 % 0-10 Blood neutrophils automated count (number/volume) 4.5 10*3 1.8-7.8 Blood lymphocytes automated count (number/volume) 2.1 10*3 1.0-4.0 Blood monocytes automated count (number/volume) 0. 8 10*3 0.0-1.0 Automated eosinophil count 0.5 10*3/uL 0 .0-0.3 Automated blood basophil count (count/volume) 0.0 10*3/uL 0.0-0.1 PT panel in platelet poor plasma by coag ulation assay - 12/15/18 01:09 Prothrombin time (PT) in platelet poor plasma by coagu lation assay 14.1 s 12.2-14.7 INR in platelet poor plasma or blood by coagulation as say 1.1 0.8-1.4 Activated partial thromboplastin time (a PTT) in platelet poor plasma bycoagulation assay - 12/15/18 01:09 Activated partial thromboplastin time (a PTT) in platelet poor plasma bycoagulation assay 30 s 24-35 Comprehensive metabolic panel - 12/15/18 01:09 Serum or plasma sodium measurement (moles/volume) 141 mmol/L 135-145 Serum or plasma potassium measurement (moles/volume) 3.8 mmol/L 3.6-5.0 Serum or plasma chloride measurement (moles/volume) 106 mmol/L 98-107 Carbon dioxide 24 mmol/L 21-32 Serum or plasma anion gap determination (moles/volume) 11 mmol/L 5-14 Serum or plasma urea nitrogen measurement (mass/volume ) 17 mg/dL 7-18 Serum or plasma creatinine measurement (mass/volume) 0.70 mg/dL 0.60-1.30 Serum or plasma urea nitrogen/creatinine mass ratio 24 NRG Serum or plasma creatinine measurement w ith calculation of estimated glomerular filtration rate > NRG Serum or plasma glucose measurement (mass/volume) 79 mg/dL 70-105 Serum or plasma calcium measurement (mass/volume) 9.3 mg/dL 8.5-10.1 Serum or plasma total bilirubin measurement (mass/volu me) 0.3 mg/dL 0.1-1.0 Serum or plasma alkaline phosphatase osman surement (enzymatic activity/volume) 99 U/L 40-136 Serum or plasma aspartate aminotransfera se measurement (enzymatic activity/volume) 24 U/L 5-34 Serum or plasma alanine aminotransferase measurement (enzymatic activity/volume) 26 U/L 0-55 Serum or plasma protein measurement (mass/volume) 7.0 g/dL 6.4-8.2 Serum or plasma albumin measurement (mass/volume) 3.3 g/dL 3.2-4.5 CALCIUM CORRECTED 9.9 mg/dL 8.5-10.1 Lipase - 12/15/18 01:09 Lipase 38 U/L 8-78 Serum or plasma C reactive protein measu rement (mass/volume) - 12/15/18 01:09 Serum or plasma C reactive protein measurement (mass/v olume) 3.80 mg/dL 0.00-0.50 Serum or plasma troponin i.cardiac measu rement (mass/volume) - 12/15/18 01:09 Serum or plasma troponin i.cardiac measurement (mass/v olume) < ng/mL <0.028 Arterial blood gas measurement - 9 01:15 Blood pCO2 39 mm[Hg] 35-45 Blood pO2 197 mm[Hg] 79-93 Arterial blood bicarbonate measurement (moles/volume) 24 mmol/L 23-27 Arterial blood base excess by calculation -0.1 mmo l/L -2.5-2.5 Arterial blood oxygen saturation measurement 100 % 94-100 * Inhaled oxygen flow rate 6 NRG Arterial blood pH measurement with patient temperature correction 7.40 7.37-7.43 Arterial blood carbon dioxide, total measurement (mole s/volume) 25.4 mmol/L 21.0-31.0 Body site RIGHT RADIAL NRG Assessment of wrist artery patency prior to arterial p uncture POSITIVE NRG Setting of ventilation mode NO NR G Measurement of body temperature 36.5 NRG Complete urinalysis with reflex to cultu re - 12/15/18 04:20 Urine color determination YELLOW NRG Urine clarity determination CLEAR NR G Urine pH measurement by test strip 5 5-9 Specific gravity of urine by test strip 1.020 1.016-1.022 Urine protein assay by test strip, semi-quantitative NEGATIVE NEGATIVE Urine glucose detection by automated test strip NE GATIVE NEGATIVE Erythrocytes detection in urine sediment by light micr oscopy 4+ NEGATIVE Urine ketones detection by automated test strip NE GATIVE NEGATIVE Urine nitrite detection by test strip NEGATIVE NEGATIVE Urine total bilirubin detection by test strip NEGA TIVE NEGATIVE Urine urobilinogen measurement by automated test strip (mass/volume) NORMAL NORMAL Urine leukocyte esterase detection by dipstick 1+ NEGATIVE Automated urine sediment erythrocyte cou nt by microscopy (number/high power field) [HPF] NRG Automated urine sediment leukocyte count by microscopy (number/high power field) [HPF] NRG Bacteria detection in urine sediment by light microsco py FEW NRG Squamous epithelial cells detection in u rine sediment by light microscopy 2-5 NRG Crystals detection in urine sediment by light microsco py NONE NRG Casts detection in urine sediment by light microscopy NONE NRG Mucus detection in urine sediment by light microscopy NEGATIVE NRG Complete urinalysis with reflex to culture NO NRG Complete blood count (CBC) with automate d white blood cell (WBC) differential - 12/18/18 13:27 Blood leukocytes automated count (number/volume) 11.4 10*3/uL 4.3-11.0 Blood erythrocytes automated count (number/volume) 4.28 10*6/uL 4.35-5.85 Venous blood hemoglobin measurement (mass/volume) 11.0 g/dL 11.5-16.0 Blood hematocrit (volume fraction) 36 % 35-52 Automated erythrocyte mean corpuscular volume 83 [ foz_us] 80-99 Automated erythrocyte mean corpuscular h emoglobin (mass per erythrocyte) 26 pg 25-34 Automated erythrocyte mean corpuscular h emoglobin concentration measurement (mass/volume) 31 g/dL 32-36 Automated erythrocyte distribution width ratio 14. 5 % 10.0- 14.5 Automated blood platelet count (count/volume) 356 10*3/uL 130-400 Automated blood platelet mean volume measurement 9.1 [foz_us] 7.4-10.4 Automated blood neutrophils/100 leukocytes 64 % 42-75 Automated blood lymphocytes/100 leukocytes 25 % 12-44 Blood monocytes/100 leukocytes 10 % 0-12 Automated blood eosinophils/100 leukocytes 1 % 0-10 Automated blood basophils/100 leukocytes 0 % 0-10 Blood neutrophils automated count (number/volume) 7.3 10*3 1.8-7.8 Blood lymphocytes automated count (number/volume) 2.8 10*3 1.0-4.0 Blood monocytes automated count (number/volume) 1. 1 10*3 0.0-1.0 Automated eosinophil count 0.1 10*3/uL 0 .0-0.3 Automated blood basophil count (count/volume) 0.0 10*3/uL 0.0-0.1 Comprehensive metabolic panel - 12/18/18 13:27 Serum or plasma sodium measurement (moles/volume) 143 mmol/L 135-145 Serum or plasma potassium measurement (moles/volume) 3.5 mmol/L 3.6-5.0 Serum or plasma chloride measurement (moles/volume) 109 mmol/L 98-107 Carbon dioxide 27 mmol/L 21-32 Serum or plasma anion gap determination (moles/volume) 7 mmol/L 5-14 Serum or plasma urea nitrogen measurement (mass/volume ) 15 mg/dL 7-18 Serum or plasma creatinine measurement (mass/volume) 0.79 mg/dL 0.60-1.30 Serum or plasma urea nitrogen/creatinine mass ratio 19 NRG Serum or plasma creatinine measurement w ith calculation of estimated glomerular filtration rate > NRG Serum or plasma glucose measurement (mass/volume) 95 mg/dL 70-105 Serum or plasma calcium measurement (mass/volume) 8.9 mg/dL 8.5-10.1 Serum or plasma total bilirubin measurement (mass/volu me) 0.4 mg/dL 0.1-1.0 Serum or plasma alkaline phosphatase osman surement (enzymatic activity/volume) 100 U/L 40-136 Serum or plasma aspartate aminotransfera se measurement (enzymatic activity/volume) 25 U/L 5-34 Serum or plasma alanine aminotransferase measurement (enzymatic activity/volume) 34 U/L 0-55 Serum or plasma protein measurement (mass/volume) 6.4 g/dL 6.4-8.2 Serum or plasma albumin measurement (mass/volume) 3.4 g/dL 3.2-4.5 CALCIUM CORRECTED 9.4 mg/dL 8.5-10.1 Serum or plasma uric acid measurement (m ass/volume) - 12/18/18 13:27 Serum or plasma uric acid measurement (mass/volume) 6.0 mg/dL 2.6-7.2 Serum ragweed IgE antibody assay - 12/18 13:27 Serum ragweed IgE antibody assay 260 U/L 125-220 Urine protein/creatinine mass ratio - 13:33 Urine protein measurement (mass/volume) 12 mg/dL 6-12 Urine creatinine measurement (mass/volume) 202 mg/ dL 30-125 Urine protein/creatinine mass ratio 0.06 NRG GC/CHLAMYDIA (SWAB OR URINE)-RAPID - 19:00 CHLAMYDIA TRACHOMATIS RNA, TMA DETECTED NOT DETECTED NEISSERIA GONORRHOEAE RNA, TMA NOT DETECTED NOT DETECTED COMMENT NRG GC/CHLAMYDIA (SWAB OR URINE)-RAPID - 19:00 CHLAMYDIA TRACHOMATIS RNA, TMA NOT DETECTED NOT DETECTED NEISSERIA GONORRHOEAE RNA, TMA NOT DETECTED NOT DETECTED COMMENT NRG Complete urinalysis with reflex to cultu re - 04/06/19 14:37 Urine color determination YELLOW NRG Urine clarity determination CLEAR NR G Urine pH measurement by test strip 6.0 5-9 Specific gravity of urine by test strip 1.020 1.016-1.022 Urine protein assay by test strip, semi-quantitative NEGATIVE NEGATIVE Urine glucose detection by automated test strip NE GATIVE NEGATIVE Erythrocytes detection in urine sediment by light micr oscopy 1+ NEGATIVE Urine ketones detection by automated test strip NE GATIVE NEGATIVE Urine nitrite detection by test strip NEGATIVE NEGATIVE Urine total bilirubin detection by test strip NEGA TIVE NEGATIVE Urine urobilinogen measurement by automated test strip (mass/volume) 0.2 mg/dL < = 1.0 Urine leukocyte esterase detection by dipstick NEG ATIVE NEGATIVE Automated urine sediment erythrocyte cou nt by microscopy (number/high power field) NONE NRG Automated urine sediment leukocyte count by microscopy (number/high power field) NONE NRG Bacteria detection in urine sediment by light microsco py TRACE NRG Crystals detection in urine sediment by light microsco py NONE NRG Casts detection in urine sediment by light microscopy NONE NRG Mucus detection in urine sediment by light microscopy NEGATIVE NRG Complete urinalysis with reflex to culture NO NRG Complete blood count (CBC) with automate d white blood cell (WBC) differential - 04/06/19 15:00 Blood leukocytes automated count (number/volume) 9.3 10*3/uL 4.3-11.0 Blood erythrocytes automated count (number/volume) 4.85 10*6/uL 4.35-5.85 Venous blood hemoglobin measurement (mass/volume) 12.4 g/dL 11.5-16.0 Blood hematocrit (volume fraction) 41 % 35-52 Automated erythrocyte mean corpuscular volume 85 [ foz_us] 80-99 Automated erythrocyte mean corpuscular h emoglobin (mass per erythrocyte) 26 pg 25-34 Automated erythrocyte mean corpuscular h emoglobin concentration measurement (mass/volume) 30 g/dL 32-36 Automated erythrocyte distribution width ratio 14. 1 % 10.0- 14.5 Automated blood platelet count (count/volume) 381 10*3/uL 130-400 Automated blood platelet mean volume measurement 8.9 [foz_us] 7.4-10.4 Automated blood neutrophils/100 leukocytes 67 % 42-75 Automated blood lymphocytes/100 leukocytes 24 % 12-44 Blood monocytes/100 leukocytes 6 % 0-12 Automated blood eosinophils/100 leukocytes 3 % 0-10 Automated blood basophils/100 leukocytes 1 % 0-10 Blood neutrophils automated count (number/volume) 6.2 10*3 1.8-7.8 Blood lymphocytes automated count (number/volume) 2.2 10*3 1.0-4.0 Blood monocytes automated count (number/volume) 0. 5 10*3 0.0-1.0 Automated eosinophil count 0.3 10*3/uL 0 .0-0.3 Automated blood basophil count (count/volume) 0.1 10*3/uL 0.0-0.1 Comprehensive metabolic panel - 04/06/19 15:00 Serum or plasma sodium measurement (moles/volume) 143 mmol/L 135-145 Serum or plasma potassium measurement (moles/volume) 3.9 mmol/L 3.6-5.0 Serum or plasma chloride measurement (moles/volume) 107 mmol/L 98-107 Carbon dioxide 28 mmol/L 21-32 Serum or plasma anion gap determination (moles/volume) 8 mmol/L 5-14 Serum or plasma urea nitrogen measurement (mass/volume ) 11 mg/dL 7-18 Serum or plasma creatinine measurement (mass/volume) 0.83 mg/dL 0.60-1.30 Serum or plasma urea nitrogen/creatinine mass ratio 13 NRG Serum or plasma creatinine measurement w ith calculation of estimated glomerular filtration rate > NRG Serum or plasma glucose measurement (mass/volume) 105 mg/dL 70-105 Serum or plasma calcium measurement (mass/volume) 9.2 mg/dL 8.5-10.1 Serum or plasma total bilirubin measurement (mass/volu me) 0.1 mg/dL 0.1-1.0 Serum or plasma alkaline phosphatase osman surement (enzymatic activity/volume) 93 U/L 40-136 Serum or plasma aspartate aminotransfera se measurement (enzymatic activity/volume) 15 U/L 5-34 Serum or plasma alanine aminotransferase measurement (enzymatic activity/volume) 21 U/L 0-55 Serum or plasma protein measurement (mass/volume) 6.7 g/dL 6.4-8.2 Serum or plasma albumin measurement (mass/volume) 3.7 g/dL 3.2-4.5 CALCIUM CORRECTED 9.4 mg/dL 8.5-10.1 Lipase - 04/06/19 15:00 Lipase 62 U/L 8-78 Serum or plasma C reactive protein measu rement (mass/volume) - 04/06/19 15:00 Serum or plasma C reactive protein measurement (mass/v olume) 1.31 mg/dL 0.00-0.50 Serum or plasma choriogonadotropin (preg jennifer test) detection - 04/06/19 15:00 Serum or plasma choriogonadotropin ( test) de tection NEGATIVE NEGATIVE Encounters ACCT No. Visit Date/Time Discharge Status Pt. Type Provider Facility Loc./Unit Complaint [id number] 04/21/2019 14:20:00 04/21/2019 23:59: 59 CLS Outpatient BRINA CM [facility] [id number] 03/03/2019 14:40:00 Document Registration [id number] 01/29/2019 16:00:00 Document Registration [id number] 11/25/2018 14:20:00 Document Registration [id number] 11/11/2018 16:00:00 Document Registration [id number] 09/23/2018 15:20:00 Document Registration [id number] 06/23/2018 10:00:00 Document Registration [id number] 05/13/2018 11:00:00 Document Registration [id number] 01/08/2018 14:40:00 Document Registration [id number] 10/01/2017 13:20:00 Document Registration [id number] 07/31/2017 09:00:00 Document Registration [id number] 04/06/2019 14:16:00 17:46:00 DIS Outpatient NELIA SAAB, SHEILA Barraza [facility] ER ABD PAIN [id number] 12/18/2018 13:20:00 23:59:59 CLS Outpatient BRINA CM MD [facility] LAB PRE-ECLAMPSIA [id number] 12/15/2018 01:31:00 06:04:00 DIS Outpatient APRIL FNOSECA MD [facility] ER ABD PAIN [id number] 12/10/2018 06:56:00 14:00:00 DIS Inpatient BRINA CM MD [facility] LDRP INDUCTION [id number] 08/13/2018 14:00:00 23:59:59 CLS Preadmit JOSE ROACH APRN [facility] CARD PALPITATIONS,CHEST PAIN [id number] 05/14/2018 13:04:00 019 00:01:00 DIS Outpatient JOSE ROACH APRN [facility] CARD PALPITATIONS,CHEST PAIN [id number] 06/21/2018 21:04:00 019 06:25:00 DIS Outpatient RACHEL SULTANA APRN [facility] SLEEP HYPERSOMNIA [id number] 06/14/2018 19:02:00 02:20:00 DIS Emergency BRETT HASSAN DO [facility] ER CP AND SOB X 3 DAYS [id number] 05/13/2018 16:05:00 23:59:59 CLS Preadmit BRINA CM MD, [facility] CARD HEART PALPITATIONS [id number] 05/02/2018 12:55:00 17:04:00 DIS Emergency JOSE ROACH APRN [facility] ER CHEST PAIN [id number] 04/27/2018 19:41:00 22:08:00 DIS Emergency BRETT HASSAN DO [facility] ER ABD CRAMPING AND BLEEDI NG [id number] 01/26/2018 16:18:00 018 17:59:00 DIS Emergency SHANNAN DONP [facility] ER SPIDER IN R EYE [id number] 09/18/2017 11:08:00 018 17:00:00 DIS Outpatient BETTINA ZAVALA DO [facility] WSo DECREASED MOVEMENT/LOWER BACK PAIN/MUCUS DIS [id number] 09/01/2017 11:38:00 018 17:45:00 DIS Outpatient TOÑO BONILLA DO [facility] WSo VOMITING/HEADACHE [id number] 08/28/2017 08:57:00 018 23:59:59 CLS Preadmit TOI SAAB, BRINA coello [facility] RAD 30 WEEKS GESTATION OF Rico LAGUNA [id number] 10/20/2012 20:25:00 013 21:35:00 DIS Emergency NELIA SAAB, SHEILA Green [facility] ER SOB [id number] 10/17/2017 09:00:00 Document Registration
[2019-06-21] MEDS ORDERED: RT-ALBUTEROL SULF 2.5 MG/3 ML PRE-MIX VIAL INH STA (23:41)
[2019-06-21] MEDS ORDERED: RT-ALBUTEROL/IPRATROPIUM 3 ML (DUONEB) VIAL INH ONE (23:45)
[2019-06-21] MEDS ORDERED: DEXAMETHASONE 10 MG/ML (DECADRON) 1 ML VIAL IM ONE (23:45)
--- NOTE | 2019-06-21 23:48 | ED Cough/URI ---
General Chief Complaint: Cough/Cold/Flu Symptoms Stated Complaint: SOA,CONGESTION Nursing Triage Note: PT STATES SHE HAS BEEN COUGHING AND HAVING CONGESTION FOR TWO DAYS. PT STATES SHE ONLY HAS SOA WHEN SHE COUGHS IF SHE'S "HAVING AN ATTACK AND CAN'T CATCH MY BREATH." PT STATES SHE HAS TRAVELED TO [place] AND TRAVELED TO [place] THREE WEEKS AGO. Sepsis Screen: No Definite Risk Source: patient Exam Limitations: no limitations History of Present Illness Date Seen by Provider: Jun 21, 2019 Time Seen by Provider: 23:33 Initial Comments Here with report of shortness of air and cough over the past few days. States she feels like it's her asthma. She has not traveled recently. Last travel was about 3 weeks ago but otherwise she has been at her house. She has not been around other people. Denies fever. She has thes episodes intermittently does have known asthma. She has been using her albuterol nebulizer at home but states it's not keeping it down. She had tried using some steroids that she got from a friend but they haven't worked yet. She is unsure of the dose. She has been on antibiotics over a month ago for something similar and that didn't help. She states usually the shots of steroids helped quite a bit. Timing/Duration: getting worse, other (2-3 days) Severity/Quality: moderate, dry cough Prior Episodes/Possible Cause: frequent episodes Modifying Factors: Worse With Activity; Improves With Albuterol Nebulizer; Worse With Coughing Associated Symptoms: cough, nasal congestion, shortness of breath, wheezing Allergies and Home Medications Allergies Coded Allergies: No Known Drug Allergies (Unverified , 10/20/12) Home Medications Albuterol 8.5 Gm Hfa.aer.ad, 8.5 GM IH Q2, (Reported) 2 PUFFS Beclomethasone Dipropionate 8.7 Gm Aer.w.adap, 8.7 GM IH BID Prescribed by: BETTINA ZAVALA on 09/18/17 1540 Ibuprofen 600 Mg Tablet, 600 MG PO Q6H Prescribed by: BRINA CM on 10/18/17 0948 Ibuprofen 600 Mg Tablet, 600 MG PO Q6H Prescribed by: TOÑO BONILLA on 12/12/18 0813 Ipratropium/Albuterol Sulfate 3 Ml Ampul.neb, 3 ML IH Q6H PRN for SHORTNESS OF BREATH Prescribed by: BETTINA ZAVALA on 09/18/17 1540 Omeprazole 40 Mg Capsule.dr, 40 MG PO DAILY Prescribed by: APRIL FONSECA on 12/15/18 0551 Omeprazole 20 Mg Tablet.dr, 20 MG PO BID Prescribed by: SHEILA WALTERS on 04/06/19 1741 Pnv No.122/Iron/Folic Acid 1 Each Tablet, 1 EACH PO DAILY Prescribed by: BRETT HASSAN on 04/27/18 2151 Prednisone 20 Mg Tab, 40 MG PO BID Prescribed by: APRIL FONSECA on 12/15/18 0535 Patient Home Medication List Home Medication List Reviewed: Yes Review of Systems Review of Systems Constitutional: see HPI; No chills, No fever EENTM: no symptoms reported, nose congestion; No ear pain, No throat pain Respiratory: cough, short of breath, wheezing Cardiovascular: no symptoms reported Gastrointestinal: no symptoms reported Genitourinary: no symptoms reported Musculoskeletal: no symptoms reported Psychiatric/Neurological: No Symptoms Reported Past Ljxpnbq-Waamwp-Ezkkek Hx Past Med/Social Hx: Reviewed Nursing Past Med/Soc Hx Patient Social History Alcohol Use: Occasionally Uses Number of Drinks Today: 0 Alcohol Beverage of Choice: Wine, Vodka Recreational Drug Use: Yes Drug of Choice: MARIJUANA Smoking Status: Current Everyday Smoker Type Used: Cigarettes 2nd Hand Smoke Exposure: Yes Recent Foreign Travel: No Contact w/Someone Who Travel: No Recent Infectious Disease Expo: No Recent Hopitalizations: No Physical Abuse: No Sexual Abuse: No Mistreated: No Fear: No Immunizations Up To Date Tetanus Booster (TDap): More than 5yrs PED Vaccines UTD: Yes Seasonal Allergies Seasonal Allergies: Yes Past Medical History Surgeries: Yes (ABDOMINAL EXPLORATORY SURGERY, INTESTINAL SX A BABY) Abdominal Respiratory: Yes Asthma, COPD Currently Using CPAP: No Currently Using BIPAP: No Cardiac: No Hypertension Neurological: No : No Last Menstrual Period: May 31, 2019 Hx : 6 Hx Para: 4 Hx Total # of Abortions (Sp): 2 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 Disorders: No 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, 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 Sexually Transmitted Disease: Yes (HERPES, 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 ) HIV/AIDS: No Genitourinary: No UTI-Chronic Gastrointestinal: No Gastroesophageal Reflux, Hemorrhoids Musculoskeletal: No Endocrine: No HEENT: No Loss of Vision: Denies Hearing Impairment: Denies Cancer: No Psychosocial: No Depression Integumentary: No Herpes Blood Disorders: No Adverse Reaction/Blood Tranf: No Family Medical History Reviewed Nursing Family Hx Asthma 19 FATHER G8 BROTHER Completed stroke MATERNAL GRANDFATHER Diabetes mellitus 19 FATHER 19 MOTHER Drug abuse 19 FATHER G8 BROTHER G8 BROTHER G8 BROTHER FH: breast cancer MATERNAL GRANDMOTHE ( AGE 71) Headache disorder G8 SISTER Hypertension 19 MOTHER G8 BROTHER Psychosocial problem G8 BROTHER Seizure disorder MATERNAL GRANDMOTHE Physical Exam Vital Signs - First Documented 06/21/19 06/21/19 23:11 23:17 Temp 36.9 Pulse 105 Resp 20 B/P (MAP) 151/91 (111) Pulse Ox 98 O2 Delivery Room Air O2 Flow Rate 98.00 Capillary Refill : Less Than 3 Seconds Height: 5'11.00" Weight: 362lbs. 0.8oz. 164.172333cg; 55.00 BMI Method:Stated General Appearance: WD/WN, no apparent distress HEENT: PERRL/EOMI, pharynx normal, other (Unable to visualize TMs due to cerumen impaction bilateral.) Neck: full range of motion, supple Respiratory: decreased breath sounds, wheezing, expiration, other (Course cough) Cardiovascular: regular rate, rhythm, no murmur Gastrointestinal: non tender, soft Neurologic/Psychiatric: alert, oriented x 3 Skin: normal color, warm/dry Progress/Results/Core Measures Suspected Sepsis Recent Fever Within 48 Hours: No Infection Criteria Present: None New/Unexplained Altered Menta: No Sepsis Screen: No Definite Risk SIRS Temperature: Pulse: 105 Respiratory Rate: 20 Blood Pressure 151 /91 Mean: 111 Results/Orders My Orders Orders - ADIN MANN MD Dexamethasone Injection (Decadron Inject (06/21/19 23:45) Albuterol Pre-Mix Nebs (Rt) (Proventil (06/21/19 23:41) Albuterol/Ipra Inhalation Soln (Duoneb I (06/21/19 23:45) Svn Small Volume Nebulizer (06/21/19 23:41) Svn Small Volume Nebulizer (06/21/19 23:41) Chest 1 View, Ap/Pa Only (06/22/19 00:01) Albuterol Pre-Mix Nebs (Rt) (Proventil (06/22/19 00:17) Azithromycin Tablet (Zithromax Tablet) (06/22/19 00:17) Svn Small Volume Nebulizer (06/22/19 00:17) Medications Given in ED Current Medications Medications Dose Ordered Sig/Violette Route Start Time Stop Time Status Last Admin Dose Admin Albuterol/ Ipratropium 3 ml ONCE ONCE INH 06/21/19 23:45 06/21/19 23:46 DC 06/21/19 23:52 3 ML Dexamethasone Sodium Phosphate 10 mg ONCE ONCE IM 06/21/19 23:45 06/21/19 23:46 DC 06/22/19 00:07 10 MG Vital Signs/I&O 06/21/19 06/21/19 23:11 23:17 Temp 36.9 Pulse 105 Resp 20 B/P (MAP) 151/91 (111) Pulse Ox 98 O2 Delivery Room Air Room Air O2 Flow Rate 98.00 Capillary Refill : Less Than 3 Seconds Blood Pressure Mean: 111 Progress Note : Progress Note Seen and evaluated in full personal protective equipment. Albuterol neb plus DuoNeb ordered. Chest x-ray ordered. Decadron 10 mg IM. Monitor patient. 0020: Patient states overall doing much better. We will give 1 more breathing treatment and I will go ahead and give azithromycin 500 mg by mouth now and we'll continue the Z-Jonel outpatient. This is for potential walking pneumonia or atypical pneumonia given the prolonged course that she's had. No findings of pneumonia on x-ray though. Discharged home with return precautions. Patient verbalize understanding instructions and agreement with plan. Diagnostic Imaging Diagonstic Imaging: Xray Plain Films/CT/US/NM/MRI: chest Comments No acute findings Reviewed: Reviewed by Me Departure Impression Primary Impression: Acute asthma exacerbation Qualified Codes: J45.41 - Moderate persistent asthma with (acute) exacerbat ion Disposition: HOME, SELF-CARE Condition: Improved Departure-Patient Inst. Decision time for Depature: 00:21 Referrals: BRINA CM MD (PCP/Family) Primary Care Physician Patient Instructions: Asthma, Adult (DC), Acute Bronchitis, Adult (DC) Add. Discharge Instructions: All discharge instructions reviewed with patient and/or family. Voiced understanding. Take medications as directed. Follow-up with your Dr. in a few days for recheck. Return for worse pain, fever, vomiting, weakness, breathing problems or other concerns as needed. Scripts Prednisone (Prednisone) 20 Mg Tab 40 MG PO DAILY, #10 TAB 0 Refills Prov: ADIN MANN MD 06/22/19 Azithromycin (Azithromycin) 250 Mg Tablet 250 MG PO DAILY, #4 TAB 0 Refills Prov: ADIN MANN MD 06/22/19 ADIN MANN MD Jun 21, 2019 23:48
[2019-06-22] MEDS ORDERED: AZITHROMYCIN 250 MG TAB (ZITHROMAX) PO STA (00:17)
[2019-06-22] MEDS ORDERED: RT-ALBUTEROL SULF 2.5 MG/3 ML PRE-MIX VIAL INH STA (00:17)
[2019-06-22] MEDS ORDERED: AZIT250T12 PO (00:22)
[2019-06-22] MEDS ORDERED: PRD20T PO (00:22)
[2019-06-22 00:38] VITALS: BP 122/113
--- NOTE | 2019-06-22 05:38 | Diagnostic Imaging Report ---
INDICATION: Shortness of breath. COMPARISON STUDY: Chest from 12/15/2018. FINDINGS: Frontal view of the chest demonstrates lungs to be clear. The heart, mediastinum, pulmonary vascularity and visualized bony thorax are normal. IMPRESSION: Negative chest. Dictated by: Dictated on workstation # [id number]
== END 2019-06-22 00:38 | disposition home or self-care (01) ==
LOC: EDUNIT# 22:48 → ER 22:50
DX: J45.901 Unspecified asthma with (acute) exacerbation (principal); J44.9 Chronic obstructive pulmonary disease, unspecified; K21.9 Gastro-esophageal reflux disease without esophagitis; F17.210 Nicotine dependence, cigarettes, uncomplicated; Z79.52 Long term (current) use of systemic steroids; Z82.49 Family history of ischemic heart disease and other diseases of the circulatory system; Z80.3 Family history of malignant neoplasm of breast
CPT/HCPCS: 71045; 94640

== ENCOUNTER 2019-08-17 21:50 | Emergency (ER) | payer MEDICAID ==
[~2019-08-17] VITALS: Ht 177 cm; Wt 177.3 kg
[~2019-08-17 21:50] MED LIST changes: +AZIT250T12 PO
[2019-08-17] MEDS ORDERED: methylPREDNISolone 40 MG/ML (DEPO MEDROL) VIAL ONE (21:59)
[2019-08-17] MEDS ORDERED: RT-ALBUTEROL/IPRATROPIUM 3 ML (DUONEB) VIAL ONE (22:00)
[2019-08-17] MEDS ORDERED: RX-ALBUTEROL INHALER (PROAIR) 8.5 GM IH ONE (22:10)
[2019-08-17] MEDS ORDERED: RT-ALBUINH INH (22:12)
[2019-08-17] MEDS ORDERED: NEBU1KIT3 MC (22:12)
--- NOTE | 2019-08-17 22:12 | ED Respiratory ---
General Chief Complaint: Respiratory Problems Stated Complaint: ASTHMA ATTACK Source: patient Exam Limitations: no limitations History of Present Illness Date Seen by Provider: Aug 17, 2019 Time Seen by Provider: 21:58 Initial Comments Patient presents to ER by private conveyance with chief complaint that her kids broke her nebulizer tonight. She was needing a breathing treatment after exposed to some cigarette smoke and cannot wait to get to her doctor's office in the morning. She has some wheezing but no coughing fever chills or travel outside the region. She has a history of asthma. She takes Advair for baseline. She says in the past a shot of steroids is also been very helpful and she would like that today. She's declining to do any blood work. Allergies and Home Medications Allergies Coded Allergies: No Known Drug Allergies (Unverified , 10/20/12) Home Medications Albuterol 8.5 Gm Hfa.aer.ad, 8.5 GM IH Q2, (Reported) 2 PUFFS Azithromycin 250 Mg Tablet, 250 MG PO DAILY Prescribed by: ADIN MANN on 06/22/19 0022 Beclomethasone Dipropionate 8.7 Gm Aer.w.adap, 8.7 GM IH BID Prescribed by: BETTINA ZAVALA on 09/18/17 1540 Ibuprofen 600 Mg Tablet, 600 MG PO Q6H Prescribed by: BRINA CM on 10/18/17 0948 Ibuprofen 600 Mg Tablet, 600 MG PO Q6H Prescribed by: TOÑO BONILLA on 12/12/18 0813 Ipratropium/Albuterol Sulfate 3 Ml Ampul.neb, 3 ML IH Q6H PRN for SHORTNESS OF BREATH Prescribed by: BETTINA ZAVALA on 09/18/17 1540 Omeprazole 40 Mg Capsule., 40 MG PO DAILY Prescribed by: APRIL FONSECA on 12/15/18 0551 Omeprazole 20 Mg Tablet., 20 MG PO BID Prescribed by: SHEILA WALTERS on 04/06/19 1741 Pnv No.122/Iron/Folic Acid 1 Each Tablet, 1 EACH PO DAILY Prescribed by: BRETT HASSAN on 04/27/18 2151 Prednisone 20 Mg Tab, 40 MG PO BID Prescribed by: APRIL FONSECA on 12/15/18 0535 Prednisone 20 Mg Tab, 40 MG PO DAILY Prescribed by: ADIN MANN on 06/22/19 0022 Patient Home Medication List Home Medication List Reviewed: Yes Review of Systems Review of Systems Constitutional: No chills, No fever EENTM: No ear discharge, No ear pain Respiratory: No cough; short of breath, wheezing Cardiovascular: No chest pain, No edema Gastrointestinal: No abdominal pain, No nausea, No vomiting Genitourinary: No discharge, No dysuria All Other Systems Reviewed Negative Unless Noted: Yes Past Nvetcop-Kjfnsu-Hlfkvv Hx Patient Social History Alcohol Use: Denies Use Alcohol Beverage of Choice: Wine, Vodka Recreational Drug Use: Yes Drug of Choice: MARIJUANA Smoking Status: Current Everyday Smoker Type Used: Cigarettes 2nd Hand Smoke Exposure: Yes Recent Foreign Travel: No Contact w/Someone Who Travel: No Recent Hopitalizations: No Immunizations Up To Date Tetanus Booster (TDap): More than 5yrs PED Vaccines UTD: Yes Seasonal Allergies Seasonal Allergies: Yes Past Medical History Surgeries: Yes (ABDOMINAL EXPLORATORY SURGERY, INTESTINAL SX A BABY) Abdominal Respiratory: Yes Asthma, COPD Currently Using CPAP: No Currently Using BIPAP: No Cardiac: No Hypertension Neurological: No 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 Disorders: No 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, 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 Sexually Transmitted Disease: Yes (HERPES, 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 ) HIV/AIDS: No Genitourinary: No UTI-Chronic Gastrointestinal: No Gastroesophageal Reflux, Hemorrhoids Musculoskeletal: No Endocrine: No HEENT: No Loss of Vision: Denies Hearing Impairment: Denies Cancer: No Psychosocial: No Depression Integumentary: No Herpes Blood Disorders: No Adverse Reaction/Blood Tranf: No Family Medical History Asthma 19 FATHER G8 BROTHER Completed stroke MATERNAL GRANDFATHER Diabetes mellitus 19 FATHER 19 MOTHER Drug abuse 19 FATHER G8 BROTHER G8 BROTHER G8 BROTHER FH: breast cancer MATERNAL GRANDMOTHE ( AGE 71) Headache disorder G8 SISTER Hypertension 19 MOTHER G8 BROTHER Psychosocial problem G8 BROTHER Seizure disorder MATERNAL GRANDMOTHE Physical Exam Capillary Refill : Height: 5'11.00" Weight: 362lbs. 0.8oz. 164.780363ol; 55.00 BMI Method:Stated General Appearance: WD/WN, no apparent distress Eyes: Bilateral Eye Normal Inspection, Bilateral Eye PERRL, Bilateral Eye EOMI HEENT: PERRL/EOMI, normal ENT inspection, pharynx normal Neck: full range of motion, normal inspection Respiratory: no respiratory distress (oxygen saturation 98%), no accessory muscle use, wheezing, expiration Cardiovascular: normal peripheral pulses, regular rate, rhythm Gastrointestinal: normal bowel sounds, non tender, soft Extremities: non-tender, normal inspection, normal capillary refill Neurologic/Psychiatric: alert, oriented x 3 Progress/Results/Core Measures Suspected Sepsis SIRS Temperature: Pulse: Respiratory Rate: Blood Pressure / Mean: Results/Orders Vital Signs/I&O Capillary Refill : Progress Note : Time: 22:09 Progress Note DuoNeb was ordered. We'll reexamine her after that. Depo-Medrol 40 mg per her wishes. She is not appear to be any acute respiratory distress and will probably do fine until tomorrow. We'll get her prescription for another nebulizer as well. Departure Impression Primary Impression: Asthma exacerbation Qualified Codes: J45.901 - Unspecified asthma with (acute) exacerbation Disposition: 01 HOME, SELF-CARE Condition: Improved Departure-Patient Inst. Referrals: BRINA CM MD (PCP/Family) Primary Care Physician Patient Instructions: Asthma, Adult (DC) Add. 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 The steroid should kick in over the next 12 hours and last about 5-7 days. Follow-up with her primary care provider if you need any other help. Return to the ER promptly if you have shortness of breath or other worrisome symptoms. All discharge instructions reviewed with patient and/or family. Voiced understanding. Scripts Albuterol Sulfate (VENTOLIN HFA) 1 Puff Puff 2 PUFF INH Q4H PRN for WHEEZING, #1 EA 0 Refills 1 PUFF = 90 MCG Prov: APRIL FONSECA 08/17/19 Nebulizer (Compact Compressor Nebulizer) 1 Each Each EACH MC for Wheezing, #1 Prov: APRIL FONSECA 08/17/19 APRIL FONSECA Aug 17, 2019 22:12
[2019-08-17] MEDS ORDERED: methylPREDNISolone 40 MG/ML (DEPO MEDROL) VIAL IM ONE (22:15)
[2019-08-17] MEDS ORDERED: RT-ALBUTEROL/IPRATROPIUM 3 ML (DUONEB) VIAL INH ONE ×2 (22:15)
[2019-08-17] MEDS ORDERED: RX-ALBUTEROL INHALER (PROAIR) 8.5 GM IH STA (22:17)
[2019-08-17 22:19] VITALS: BP 141/99
--- OUTSIDE RECORDS SUMMARY | 2019-08-17 23:40 | XMS REPORT ---
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 Name Role Phone BRINA CM Unavailable PROBLEMS Type Condition ICD9-CM Code TGB58-QN Code Onset Dates Condition S tatus SNOMED Code Problem Morbid (severe) obesity due to excess calories E66 .01 Active 759191701 Problem Chronic obstructive pulmonary disease, unspecified COPD ty pe J44.9 Active 92808520 Problem Chronic bronchitis, unspecified chronic bronchitis type J42 Active 29355598 Problem Essential hypertension I10 Active 97225360 Problem Seasonal allergies J30.2 Active 4 65704392 Problem Excessive and frequent menstruation with irregular cycle N92.1 Active 24900190 Problem Moderate persistent asthma with exacerbation J45.4 1 Active 016583130 Problem Gastro-esophageal reflux disease without esophagitis K21.9 Active 974627120 Problem COPD with acute exacerbation J44.1 A ctive 525851393 Problem BMI 50.0-59.9, adult Z68.43 Active 571905474 Problem Other secondary hypertension I15.8 A ctive [id number] ALLERGIES No Information ENCOUNTERS Encounter Location Date Diagnosis [facility] [id number] [place] [address] Apr, [facility] [id number] [place] [address] Apr, Acute non-recurrent ethmoida l sinusitis J01.20 ; Chronic obstructive pulmonary disease, unspecified COPD type J44.9 ; Moderate persistent asthma with exacerbation J45.41 ; Tobacco abuse Z72.0 and Vaginal yeast infection B37.3 [facility] [address] [facility] [id number] [address] [place] [phone] Mar, Cough R05 and Influenza-like illness R69 [facility] [id number] [place] [address] 16 Mar, 2019 Chronic obstructive pulmonar y disease, unspecified COPD type J44.9 [place] [address] [facility] [id number] [address] [place] [address] 15 Mar, 2019 Chronic obstructive pulmonar y disease, unspecified COPD type J44.9 ; Moderate persistent asthma with exacerbation J45.41 and BMI 50.0-59.9, adult Z68.43 [place] [address] [place] [id number] [place] [phone] 14 Mar, 2019 [place] [address] [place] [id number] [place] [address] 10 Mar, 2019 [place] [address] [place] [id number] [place] [address] 17 Feb, 2019 IUD (intrauterine device) in place Z97.5 and Screen for STD (sexually transmitted disease) Z11.3 [place] [address] [place] [id number] [place] [address] 05 Feb, 2019 [place] [address] [address] 05 Feb, 2019 Chlamydia infection A74.9 ; Excessive and frequent menstruation with irregular cycle N92.1 and Presence of (intrauterine) contraceptive device Z97.5 [place] [address] [place] [id number] [place] [address] Feb, [place] [address] [place] [id number] [place] [address] 14 Jan, 2019 care and examinat ion Z39.2 ; control counseling Z30.09 ; Encounter for IUD insertion Z30.430 ; BMI 50.0-59.9, adult Z68.43 ; Essential hypertension I10 and Screen for STD (sexually transmitted disease) Z11.3 [place] [address] [place] [id number] [place] [address] 07 Jan, 2019 [place] [address] [place] [address] 17 Dec, 2018 [facility] [address] [facility] [id number] [address] [place] [address] Dec, [facility] [address] [facility] [id number] [address] [place] [phone] Dec, [facility] [id number] [place] [address] Dec, Moderate persistent asthma w ith exacerbation J45.41 ; BMI 50.0- 59.9, adult Z68.43 and Other secondary hypertension I15.8 [facility] [address] [address] Dec, [facility] [id number] [place] [address] Dec, [facility] [address] [address] Dec, Pre-eclampsia affecting puer perium O14.95 ; Swelling of lower extremity M79.89 and BMI 50.0-59.9, adult Z68.43 [facility] [address] [place] [id number] [place] [address] Dec, [facility] [id number] [place] [address] Nov, Third trimester Z3 4.93 ; 38 weeks gestation of Z3A.38 ; Obesity affecting in third trimester O99.213 ; BMI 45.0-49.9, adult Z68.42 and COPD with acute exacerbation J44.1 [facility] [id number] [place] [address] Nov, Decreased movement aff ecting , antepartum O36.8190 [facility] [id number] [place] [address] Nov, Third trimester Z3 4.93 ; 37 weeks gestation of Z3A.37 ; Obesity affecting in third trimester O99.213 ; Other viral diseases complicating , third trimester O98.513 and Herpesviral infection, unspecified B00.9 [place] [address] [address] 13 Nov, 2018 Third trimester Z3 4.93 and Decreased movements in third trimester, single or unspecified fetus O36.8130 [place] [address] [place] [id number] [place] [address] 13 Nov, 2018 [place] [address] [address] 10 Nov, 2018 Third trimester Z3 4.93 ; 36 weeks gestation of Z3A.36 and Obesity affecting in third trimester O99.213 [place] [address] [address] 04 Nov, [address] [address] Nov, care in third trime ster Z34.93 ; COPD with acute exacerbation J44.1 and 35 weeks gestation of Z3A.[address] [address] Oct, Morbid obesity E66.01 ; Acut e cystitis during in third trimester O23.13 ; Third trimester Z34.93 and History of chlamydia infection Z86.19 [place] [address] [place] [id number] [place] [address] Oct, [place] [address] [place] [id number] [place] [address] Oct, care in third trime ster Z34.93 ; 32 weeks gestation of Z3A.32 ; Morbid obesity E66.01 ; Gastro-esophageal reflux disease without esophagitis K21.9 ; Diseases of the digestive system complicating , third trimester O99.613 ; History of herpes genitalis Z86.19 ; Encounter for immunization Z23 and Obesity affecting in third trimester O99.213 [place] [address] [facility] [id number] [address] [place] [address] Sep, [facility] [address] [facility] [id number] [address] [place] [address] Sep, Allergic conjunctivitis of r ight eye H10.11 ; Hordeolum internum of right upper eyelid H00.021 and Morbid obesity E66.01 [facility] [address] [facility] [id number] [address] [place] [address] Sep, Dental examination Z01.20 [place] [address] [place] [id number] [place] [address] Sep, Third trimester Z3 4.93 ; 27 weeks gestation of Z3A.27 ; Morbid obesity E66.01 and Obesity affecting in second trimester O99.212 [place] [address] [place] [address] Sep, [place] [address] [place] [id number] [place] [address] Sep, 18 weeks gestation of pregna ncy Z3A.18 ; Obesity affecting in second trimester O99.212 ; Other specified related conditions, second trimester O26.892 and Other specified noninflammatory disorders of vagina N89.8 [place] [address] [place] [address] Aug, [place] [address] [place] [id number] [place] [address] Aug, Second trimester Z 34.92 ; 22 weeks gestation of Z3A.22 ; Obesity affecting in second trimester O99.212 and Moderate persistent asthma with exacerbation J45.41 [place] [address] [place] [id number] [place] [address] July, [place] [address] [place] [id number] [place] [address] July, [place] [address] [place] [id number] [place] [address] July, Second trimester Z 34.92 ; Obesity affecting in second trimester O99.212 ; 18 weeks gestation of Z3A.18 ; Other specified related conditions, second trimester O26.892 ; Other specified noninflammatory disorders of vagina N89.8 and Chronic bronchitis, unspecified chronic bronchitis type J42 [place] [address] [place] [id number] [place] [address] July, [place] [address] [place] [id number] [place] [address] July, 14 weeks gestation of pregna ncy Z3A.14 and Second trimester Z34.92 [place] [address] [place] [id number] [place] [address] Jun, Second trimester Z 34.92 ; 14 weeks gestation of Z3A.14 ; Obesity affecting in second trimester O99.212 and Chronic obstructive pulmonary disease, unspecified COPD type J44.9 [place] [address] [place] [id number] [place] [address] Jun, Moderate persistent asthma w ith exacerbation J45.41 ; Morbid (severe) obesity due to excess calories E66.01 ; Shortness of breath R06.02 ; First trimester Z34.91 and 13 weeks gestation of Z3A.13 [place] [address] [place] [id number] [place] [address] Jun, [place] [address] [place] [id number] [place] [address] May, Dental examination Z01.20 [place] [address] [place] [id number] [place] [address] May, Obesity affecting in first trimester O99.211 ; 12 weeks gestation of Z3A.12 ; Vaginal yeast infection B37.3 ; Moderate persistent asthma with exacerbation J45.41 ; Frequent headaches R51 ; Elevated blood pressure affecting in first trimester, antepartum O16.1 and Morbid obesity E66.01 [facility] [address] [address] May, Normal in multigra blair Z34.80 ; 8 weeks gestation of Z3A.08 and Heart palpitations R00.[address] [address] May, Moderate persistent asthma w ith exacerbation J45.[address] [address] Apr, Normal in multigra blair Z34.80 ; 8 weeks gestation of Z3A.08 ; Heart palpitations R00.2 ; Obesity affecting in first trimester O99.211 ; BMI 50.0-59.9, adult Z68.43 and Morbid obesity E66.[address] [address] 19 Apr, 2018 Dizziness R42 ; Intractable vomiting with nausea, unspecified vomiting type R11.2 ; Morbid (severe) obesity due to excess calories E66.01 ; First trimester Z34.91 ; History of pre-eclampsia Z87.59 and Morbid obesity E66.[address] [address] 12 Apr, [address] [address] Mar, Moderate persistent asthma w ith exacerbation J45.41 and BMI 45.0- 49.9, adult Z68.42 [facility] [address] [address] Mar, Sinusitis J32.9 ; Cerumen im paction H61.20 and BMI 50.0- 59.9, adult Z68.[address] [address] Dec, care and examinat ion Z39.2 ; Moderate persistent asthma with exacerbation J45.41 ; Vaginal discharge N89.8 and BMI 45.0-49.9, adult Z68.42 [facility] [address] [facility] [id number] [address] [place] [address] Dec, Seasonal allergies J30.2 [facility] [address] [facility] [id number] [address] [place] [address] Sep, [facility] [address] [facility] [id number] [address] [place] [address] Sep, [facility] [address] [facility] [id number] [address] [place] [address] Sep, 36 weeks gestation of pregna ncy Z3A.36 ; Third trimester Z34.93 and Obesity affecting in third trimester O99.213 [facility] [address] [facility] [id number] [address] [place] [address] Sep, BMI 45.0-49.9, adult Z68.42 ; Third trimester Z34.93 ; 35 weeks gestation of Z3A.35 ; Obesity affecting in third trimester O99.213 and Vaginal discharge N89.8 [facility] [address] [facility] [id number] [address] [place] [address] Sep, [facility] [address] [facility] [id number] [address] [place] [address] Sep, [facility] [address] [facility] [id number] [address] [place] [address] Sep, Third trimester Z3 4.93 ; 34 weeks gestation of Z3A.34 ; Current with history of pre-term labor in third trimester O09.213 and Obesity affecting in third trimester O99.213 [facility] [address] [facility] [id number] [address] [place] [address] Sep, [facility] [address] [facility] [id number] [address] [place] [address] Sep, [facility] [address] [facility] [id number] [address] [place] [address] 29 Syd, 2018 Acute maxillary sinusitis, r ecurrence not specified J01.00 ; Moderate persistent asthma with exacerbation J45.41 and Chest congestion R09.89 [place] [address] [place] [id number] [place] [address] 27 Aug, 2017 Third trimester Z3 4.93 ; 32 weeks gestation of Z3A.32 ; Obesity affecting in third trimester O99.213 and BMI 45.0- 49.9, adult Z68.42 [place] [address] [address] 12 Aug, 2017 [place] [address] [place] [id number] [place] [address] 12 Aug, 2017 30 weeks gestation of pregna ncy Z3A.30 ; Third trimester Z34.93 ; Nausea/vomiting in O21.9 ; Marijuana use F12.90 ; Obesity affecting in third trimester O99.213 and Encounter for immunization Z23 [place] [address] [place] [id number] [place] [address] Aug, [place] [address] [place] [id number] [place] [address] July, [address] [address] July, Decreased movements in second trimester, single or unspecified fetus O36.8120 [place] [address] [place] [id number] [place] [address] July, Decreased movements in second trimester, single or unspecified fetus O36.8120 [place] [address] [place] [address] July, [address] [address] July, Multigravida in second trime ster Z34.82 ; 26 weeks gestation of Z3A.26 ; Moderate persistent asthma with exacerbation J45.41 and Obesity affecting in second trimester O99.212 [place] [address] [place] [id number] [place] [address] Jun, [place] [address] [facility] [id number] [address] [place] [address] Jun, Multigravida in second trime ster Z34.82 ; Normal in multigravida Z34.80 ; 22 weeks gestation of Z3A.22 ; Obesity affecting in second trimester O99.212 ; Herpesviral infection, unspecified B00.9 and Other viral diseases complicating , second trimester O98.512 [place] [address] [facility] [id number] [address] [place] [address] Jun, IMMUNIZATIONS No Known Immunizations SOCIAL HISTORY Never Assessed REASON FOR VISIT Phone Call PLAN OF CARE VITAL SIGNS MEDICATIONS Unknown [...]
--- OUTSIDE RECORDS SUMMARY | 2019-08-17 23:42 | XMS REPORT | Continuity of Care Document ---
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3 FAMILY HISTORY OF MALIGNANT NEOPLASM OF 01/26/2018 ARIAN, SHANNAN TITLE ASSISTANT Ot Z86.19 PERSONAL HISTORY OF OTHER INFECTIOUS AND 01/26/2018 ARIAN, SHANNAN TITLE ASSISTANT Ot Z87.19 PERSONAL HISTORY OF OTHER DISEASES OF 01/26/2018 ARIAN, SHANNAN TITLE ASSISTANT Ot Z87.448 PERSONAL HISTORY OF OTHER DISEASES OF UR 01/28/2018 ARIAN, SHANNAN TITLE ASSISTANT Ot D64.9 ANEMIA, UNSPECIFIED 01/28/2018 ARIAN SHANNAN TITLE ASSISTANT Ot F17.210 NICOTINE DEPENDENCE, CIGARETTES, UNCOMPL 01/28/2018 ARIAN, SHANNAN TITLE ASSISTANT Ot F32.9 MAJOR DEPRESSIVE DISORDER, SINGLE EPISOD 01/28/2018 ARIAN, SHANNAN TITLE ASSISTANT Ot H57.11 OCULAR PAIN, RIGHT EYE 01/28/2018 ARIAN SHANNAN TITLE ASSISTANT Ot J44.9 CHRONIC OBSTRUCTIVE PULMONARY DISEASE, U 01/28/2018 ARIAN, SHANNAN TITLE ASSISTANT Ot K21.9 GASTRO-ESOPHAGEAL REFLUX DISEASE WITHOUT 01/28/2018 ARIAN, SHANNAN TITLE ASSISTANT Ot S05.01XA INJ CONJUNCTIVA AND CORNEAL ABRASION W/O 01/28/2018 ARIAN, SHANNAN TITLE ASSISTANT Ot X58.XXXA EXPOSURE TO OTHER SPECIFIED FACTORS, INI 01/28/2018 ARIAN, SHANNAN TITLE ASSISTANT Ot Z79.51 CARPET LAYER HELPER (CURRENT) USE OF INHALED STERO 01/28/2018 ARIAN, SHANNAN TITLE ASSISTANT Ot Z79.52 SHELTER (CURRENT) USE OF SYSTEMIC STER 01/28/2018 ARIAN, SHANNAN TITLE ASSISTANT Ot Z80.3 FAMILY HISTORY OF MALIGNANT NEOPLASM OF 01/28/2018 ARIAN, SHANNAN TITLE ASSISTANT Ot Z86.19 PERSONAL HISTORY OF OTHER INFECTIOUS AND 01/28/2018 ARIAN, SHANNAN TITLE ASSISTANT Ot Z87.19 PERSONAL HISTORY OF OTHER DISEASES [...] SPEC 04/27/2018 BRETT HASSAN DO Ot Z79.51 SHELTER (CURRENT) USE OF INHALED STERO 04/27/2018 BRETT [...] THE DGSTV SYS COMP 04/29/2018 SONYA BRETT TRONCOSO Ot Z3A.00 WEEKS OF GESTATION OF NOT SPEC 04/29/2018 BRETT HASSAN DO Ot Z79.51 SHELTER (CURRENT) USE OF INHALED STERO 04/29/2018 BRETT [...] OF 05/02/2018 JOSE ROACH APRN Ot Z79.51 CARPET LAYER HELPER (CURRENT) USE OF INHALED STERO 05/02/2018 JOSE ROACH APRN Ot Z79.52 SHELTER (CURRENT) USE OF SYSTEMIC STER 05/02/2018 JOSE [...] OF 05/06/2018 JOSE ROACH APRN Ot Z79.51 CARPET LAYER HELPER (CURRENT) USE OF INHALED STERO 05/06/2018 JOSE ROACH APRN Ot Z79.52 CARPET LAYER HELPER (CURRENT) USE OF SYSTEMIC STER 05/06/2018 JOSE [...] F41 .9 ANXIETY DISORDER, UNSPECIFIED 05/07/2018 JOSE ROACH APRN Ot J44 .9 CHRONIC [...] OF 05/07/2018 JOSE ROACH APRN Ot Z79.51 CARPET LAYER HELPER (CURRENT) USE OF INHALED STERO 05/07/2018 JOSE ROACH APRN Ot Z79.52 CARPET LAYER HELPER (CURRENT) USE OF SYSTEMIC STER 05/07/2018 JOSE [...] OF 06/13/2018 JOSE ROACH APRN Ot Z79.51 SHELTER (CURRENT) USE OF INHALED STERO 06/13/2018 JOSE ROACH APRN Ot Z79.52 CARPET LAYER HELPER (CURRENT) USE OF SYSTEMIC STER 06/13/2018 JOSE [...] OF 06/15/2018 BRETT HASSAN DO Ot Z79.52 SHELTER (CURRENT) USE OF SYSTEMIC STER 06/15/2018 BRETT [...] OF 06/18/2018 BRETT HASSAN DO, Ot Z79.52 CARPET LAYER HELPER (CURRENT) USE OF SYSTEMIC STER 06/18/2018 BRETT [...] OF 06/20/2018 SONYA BRETT Ivett Ot Z79.52 SHELTER (CURRENT) USE OF SYSTEMIC STER 06/20/2018 SONYA [...] Ot G47.10 HYPERSOMNIA, UNSPECIFIED 06/22/2018 RACHEL SULTANA MAGISTERIAL DISTRICT JUDGE Ot J45.998 OTHER ASTHMA 06/22/2018 RACHEL SULTANA E MAGISTERIAL DISTRICT JUDGE Ot R05 COUGH 06/22/2018 JOSE SULTANAINE E MAGISTERIAL DISTRICT JUDGE Ot R06.00 DYSPNEA, UNSPECIFIED 06/22/2018 JOSE SULTANAINE E MAGISTERIAL DISTRICT JUDGE Ot R06.89 OTHER ABNORMALITIES OF BREATHING 06/22/2018 RACHEL SULTANA E MAGISTERIAL DISTRICT JUDGE Ot Z72.0 TOBACCO USE 06/24/2018 JOSE SULTANAINE E MAGISTERIAL DISTRICT JUDGE Ot G47.10 HYPERSOMNIA, UNSPECIFIED 06/24/2018 JOSE SULTANAINE E MAGISTERIAL DISTRICT JUDGE Ot J45.998 OTHER ASTHMA 06/24/2018 RACHEL SULTANA MAGISTERIAL DISTRICT JUDGE Ot R05 COUGH 06/24/2018 JOSE SULTANAINE E MAGISTERIAL DISTRICT JUDGE Ot R06.00 DYSPNEA, UNSPECIFIED 06/24/2018 RACHEL SULTANA E MAGISTERIAL DISTRICT JUDGE Ot R06.89 OTHER ABNORMALITIES OF BREATHING 06/24/2018 RACHEL SULTANA MAGISTERIAL DISTRICT JUDGE Ot Z72.0 TOBACCO USE 07/15/2018 SONYA DO, [...] 07/15/2018 SONYA TRONCOSO BRETT K Ot Z79.51 SHELTER (CURRENT) USE OF INHALED STERO 07/15/2018 SONYA [...] O99.2 14 OBESITY COMPLICATING CHILDBIRTH 12/12/2018 BRINA CM MD Ot O99.5 2 DISEASES OF THE RESPIRATORY SYSTEM COMPL 12/12/2018 BRINA CM MD Ot O99.8 24 STREPTOCOCCUS B CARRIER STATE COMPLICATI 12/12/2018 BRINA CM MD, Ot Z37.0 SINGLE LIVE 12/12/2018 BRINA CM MD, Ot Z3A.3 8 38 WEEKS GESTATION OF 12/12/2018 BRINA CM MD, Ot Z79.8 99 OTHER SHELTER (CURRENT) DRUG THERAPY 12/15/2018 APRIL FONSECA MD Ot E66. 01 MORBID (SEVERE) OBESITY DUE TO EXCESS CA 12/15/2018 APRIL FONSECA MD Ot F17.210 NICOTINE DEPENDENCE, CIGARETTES, UNCOMPL 12/15/2018 APRIL FONSECA MD Ot F32. 9 MAJOR DEPRESSIVE DISORDER, SINGLE EPISOD 12/15/2018 APRIL FONSECA MD, Ot J44. 9 CHRONIC OBSTRUCTIVE PULMONARY DISEASE, U 12/15/2018 APRIL FONSECA MD, Ot J45.901 UNSPECIFIED ASTHMA WITH (ACUTE) EXACERBA 12/15/2018 APRIL FONSECA MD Ot K21. 9 GASTRO-ESOPHAGEAL REFLUX DISEASE WITHOUT 12/15/2018 APRIL FONSECA MD Ot O16. 5 UNSPECIFIED MATERNAL HYPERTENSION, COMP 12/15/2018 APRIL FONSECA MD Ot O99. 03 ANEMIA COMPLICATING THE PUERPERIUM 12/15/2018 APRIL FONSECA MD Ot O99.215 OBESITY COMPLICATING THE PUERPERIUM 12/15/2018 APRIL FONSECA MD Ot O99.335 SMOKING (TOBACCO) COMPLICATING THE PUERP 12/15/2018 APRIL FONSECA MD Ot O99.345 OTHER MENTAL DISORDERS COMPLICATING THE 12/15/2018 APRIL FONSECA MD Ot O99. 53 DISEASES OF THE RESP SYS COMPLICATING TH 12/15/2018 APRIL FONSECA MD Ot O99. 63 DISEASES OF THE DIGESTIVE SYSTEM COMPLIC 12/15/2018 APRIL FONSECA MD Ot O99. 89 OTH DISEASES AND CONDITIONS COMPL PREG/C 12/15/2018 APRIL FONESCA MD Ot R10. 13 EPIGASTRIC PAIN 12/15/2018 APRIL FONSECA MD, Ot Z68. 43 BODY MASS INDEX (BMI) 50-59.9, ADULT 12/15/2018 APRIL FONSECA MD Ot Z80. 3 FAMILY HISTORY OF MALIGNANT NEOPLASM OF 12/15/2018 APRIL FONSECA MD, Ot Z82. 49 FAMILY HX OF ISCHEM HEART DIS AND OTH DI 12/15/2018 JOSE ROACH APRN Ot R00 .2 [...] OBSTRUCTIVE PULMONARY DISEASE, U 12/17/2018 APRIL FONSECA MD, Ot J45.901 UNSPECIFIED ASTHMA WITH (ACUTE) EXACERBA [...] R10. 13 EPIGASTRIC PAIN 12/17/2018 APRIL FONSECA MD, Ot Z68. 43 BODY MASS INDEX (BMI) 50-59.9, ADULT 12/17/2018 APRIL FONSECA MD Ot Z80. 3 FAMILY HISTORY OF MALIGNANT NEOPLASM OF 12/17/2018 APRIL FONSECA MD Ot Z82. 49 FAMILY HX OF ISCHEM HEART DIS AND OTH DI 12/24/2018 BRINA CM MD Ot O14.9 5 UNSPECIFIED PRE-ECLAMPSIA, COMPLICATING 12/24/2018 BRINA CM MD Ot Z3A.0 0 WEEKS OF GESTATION OF NOT SPEC 04/06/2019 SHEILA PICKENS MD, Ot D64.9 ANEMIA, UNSPECIFIED 04/06/2019 SHEILA PICKENS MD, Ot E66.01 MORBID (SEVERE) OBESITY DUE TO EXCESS CA 04/06/2019 SHEILA PICKENS MD, Ot F17.210 NICOTINE DEPENDENCE, CIGARETTES, UNCOMPL 04/06/2019 SHEILA PICKENS MD, Ot F32.9 MAJOR DEPRESSIVE DISORDER, SINGLE EPISOD 04/06/2019 SHEILA PICKENS MD, Ot I10 ESSENTIAL (PRIMARY) HYPERTENSION 04/06/2019 SHEILA PICKENS MD, Ot J44.9 CHRONIC OBSTRUCTIVE PULMONARY DISEASE, U 04/06/2019 SHEILA PCIKENS MD, Ot K21.9 GASTRO-ESOPHAGEAL REFLUX DISEASE WITHOUT 04/06/2019 SHEILA PICKENS MD, Ot R10.9 UNSPECIFIED ABDOMINAL PAIN 04/06/2019 SHEILA PICKENS MD, Ot Z68.43 BODY MASS INDEX (BMI) 50.0-59.9, ADULT 04/06/2019 SHEILA PICKENS MD, Ot Z79.52 CARPET LAYER HELPER (CURRENT) USE OF SYSTEMIC STER 04/06/2019 SHEILA PICKENS MD, Ot Z80.3 FAMILY HISTORY OF MALIGNANT NEOPLASM OF 04/06/2019 SHEILA PICKENS MD, Ot Z82.49 FAMILY HX OF ISCHEM HEART DIS AND OTH DI 04/06/2019 SHEILA PICKENS MD Ot Z87.440 PERSONAL HISTORY OF URINARY (TRACT) INFE 04/09/2019 SHEILA PICKENS MD, Ot D64.9 ANEMIA, UNSPECIFIED 04/09/2019 SHEILA PICKENS MD Ot E66.01 MORBID (SEVERE) OBESITY DUE TO EXCESS CA 04/09/2019 SHEILA PICKENS MD Ot F17.210 NICOTINE DEPENDENCE, CIGARETTES, UNCOMPL 04/09/2019 [...] ADULT 04/09/2019 SHEILA PICKENS MD, Ot Z79.52 CARPET LAYER HELPER (CURRENT) USE OF SYSTEMIC STER 04/09/2019 SHEILA PICKENS MD, Ot Z80.3 FAMILY HISTORY OF MALIGNANT NEOPLASM OF 04/09/2019 SHEILA PICKENS MD, Ot Z82.49 FAMILY HX OF ISCHEM HEART DIS AND OTH DI 04/09/2019 SHEILA PICKENS MD, Ot Z87.440 PERSONAL HISTORY OF URINARY (TRACT) INFE 06/22/2019 JOSE ROACH APRN Ot R00 .2 PALPITATIONS 06/22/2019 JOSE ROACH APRN Ot R07 .9 CHEST PAIN, UNSPECIFIED 06/22/2019 BRINA CM MD, Ot O14.9 5 UNSPECIFIED PRE-ECLAMPSIA, COMPLICATING 06/22/2019 BRINA CM MD, Ot Z3A.0 0 WEEKS OF GESTATION OF NOT SPEC 06/24/2019 ADIN MANN MD, Ot F17.210 NICOTINE DEPENDENCE, CIGARETTES, UNCOMPL 06/24/2019 ADIN MANN MD, Ot J44.9 CHRONIC OBSTRUCTIVE PULMONARY DISEASE, U 06/24/2019 ADIN MANN MD, Ot J45.901 UNSPECIFIED ASTHMA WITH (ACUTE) EXACERBA 06/24/2019 DAIN MANN MD, Ot K21.9 GASTRO-ESOPHAGEAL REFLUX DISEASE WITHOUT 06/24/2019 ADIN MANN MD, Ot R06.02 SHORTNESS OF BREATH 06/24/2019 ADIN MANN MD, Ot Z79.52 CARPET LAYER HELPER (CURRENT) USE OF SYSTEMIC STER 06/24/2019 ADIN MANN MD Ot Z80.3 FAMILY HISTORY OF MALIGNANT NEOPLASM OF 06/24/2019 ADIN MANN MD Ot Z82.49 FAMILY HX OF ISCHEM HEART DIS AND OTH DI 06/26/2019 ADIN MANN MD Ot F17.210 NICOTINE DEPENDENCE, CIGARETTES, UNCOMPL 06/26/2019 ADIN MANN MD Ot J44.9 CHRONIC OBSTRUCTIVE PULMONARY DISEASE, U 06/26/2019 ADIN MANN MD Ot J45.901 UNSPECIFIED ASTHMA WITH (ACUTE) EXACERBA 06/26/2019 ADIN MANN MD Ot K21.9 GASTRO-ESOPHAGEAL REFLUX DISEASE WITHOUT 06/26/2019 ADIN MANN MD Ot R06.02 SHORTNESS OF BREATH 06/26/2019 AIDN MANN MD Ot Z79.52 SHELTER (CURRENT) USE OF SYSTEMIC STER 06/26/2019 ADIN MANN MD Ot Z80.3 FAMILY HISTORY OF MALIGNANT NEOPLASM OF 06/26/2019 ADIN MANN MD Ot Z82.49 FAMILY HX OF ISCHEM HEART DIS AND OTH DI Procedures Code Description Performed By Per jean carlos On [id number] OF PRODUCTS OF CONCEPTION, EXTE 10/16/2017 [id number] IN TRODUCTION OF OTH HORMONE INTO PERIPH 10/16/[id number] [place] [address] OF PRODUCTS OF CONCEPTION, EXTE 12/10/2018 [id number] IN TRODUCTION OF OTH HORMONE INTO PERIPH [...] ABO+Rh group BP NRG Transfusion band number [id number] NRG Blood group antibody screen NEGATIVE NR [...] Serum or plasma choriogonadotropin measurement (units/ volume) 37599 m[iU]/mL <5 Complete blood count (CBC) with [...] Serum or plasma choriogonadotropin measurement (units/ volume) 76769 m[iU]/mL <5 Magnesium - 05/02/18 13:10 Magnesium [...] - 05/13/18 12:41 CULTURE, GENITAL SEE NOTE NRG SUREPATH PAP AND HPV mRNA E6/E7 - 12:46 CLINICAL INFORMATION: NRG LMP: 02/2018 NRG PREV. PAP: NONE GIVEN NRG PREV. BX: NONE GIVEN NRG SOURCE: Cervix NRG STATEMENT OF ADEQUACY: NRG INTERPRETATION/RESULT: NRG [place]: NRG HPV mRNA E6/E7, SUREPATH VIAL Not Detected NOT DETECTED GENERAL CATEGORIZATION: NRG COMMENT: NRG PATHOLOGIST: NRG COMMENT NRG Complete blood count (CBC) with automate [...] 19:53 Sputum Gram stain Mixed bacterial comfort NRG Bacterial sputum culture - 06/14/18 19:5 3 [...] pa castillo - 12/10/18 09:10 WRISTBAND NUMBER [id number] NRG ABO+Rh group BP NRG Blood group [...] Status Pt. Type Provider Facility Loc./Unit Complaint [id number] 07/09/2019 11:40:00 07/09/2019 23:59: 59 [facility] Outpatient BRINA CM [facility] [id number] 03/03/2019 14:40:00 Document Registration [id number] 01/29/2019 16:00:00 Document Registration [id number] 11/25/2018 14:20:00 Document Registration [id number] 11/11/2018 16:00:00 Document Registration [id number] 09/23/2018 15:20:00 Document Registration [id number] 06/23/2018 10:00:00 Document Registration [id number] 05/13/2018 11:00:00 Document Registration [id number] 01/08/2018 14:40:00 Document Registration [id number] 10/01/2017 13:20:00 Document Registration [id number] 07/31/2017 09:00:00 Document Registration [id number] 07/27/2019 13:30:00 23:59:59 CLS Preadmit BRINA CM MD, V [facility] RAD IUD CHECK UP [id number] 06/21/2019 22:50:00 00:38:00 DIS Outpatient MACKENZIE SAAB, ADIN Camacho [facility] ER SOA,CONGESTION [id number] 04/06/2019 14:16:00 17:46:00 DIS Emergency NELIA SAAB, SHEILA T [facility] ER ABD PAIN [id number] 12/18/2018 13:20:00 23:59:59 CLS Outpatient BRINA CM MD [facility] LAB PRE-ECLAMPSIA [id number] 12/15/2018 01:31:00 06:04:00 DIS Emergency APRIL FONSECA MD [facility] ER ABD PAIN [id number] 12/10/2018 06:56:00 14:00:00 DIS Inpatient BRINA CM MD [facility] LDRP INDUCTION [id number] 08/13/2018 14:00:00 23:59:59 CLS Preadmit JOSE ROACH APRN [facility] CARD PALPITATIONS,CHEST PAIN [id number] 05/14/2018 13:04:00 00:01:00 DIS Outpatient JOSE ROACH APRN [facility] CARD PALPITATIONS,CHEST PAIN [id number] 06/21/2018 21:04:00 019 06:25:00 DIS Outpatient RACHEL SULTANA APRN [facility] SLEEP HYPERSOMNIA [id number] 06/14/2018 19:02:00 019 02:20:00 DIS Emergency SONYA BRETT TRONCOSO [facility] ER CP AND SOB X 3 DAYS [id number] 05/13/2018 16:05:00 019 23:59:59 CLS Preadmit TOI SAAB, BRINA coello [facility] CARD HEART PALPITATIONS [id number] 05/02/2018 12:55:00 019 17:04:00 DIS Emergency JOSE ROACH APRN [facility] ER CHEST PAIN [id number] 04/27/2018 19:41:00 019 22:08:00 DIS Emergency BRETT HASSAN DO [facility] ER ABD CRAMPING AND BLEEDI NG [id number] 01/26/2018 16:18:00 018 17:59:00 DIS Emergency SHANNAN DON [facility] ER SPIDER IN R EYE [id number] 09/18/2017 11:08:00 018 17:00:00 DIS Outpatient EVINNIDGBETTINA Goldstein DO [facility] WSo DECREASED MOVEMENT/LOWER BACK PAIN/MUCUS DIS [id number] 09/01/2017 11:38:00 018 17:45:00 DIS Outpatient TOÑO BONILLA DO [facility] WSo VOMITING/HEADACHE [id number] 08/28/2017 08:57:00 018 23:59:59 CLS Preadmit TOI SAAB, BRINA coello [facility] RAD 30 WEEKS GESTATION OF Rico LAGUNA [id number] 10/20/2012 20:25:00 013 21:35:00 DIS Emergency NELIA SAAB, SHEILA Barraza [facility] SOB [id number] 10/17/2017 09:00:00 Document Registration
== END 2019-08-17 22:27 | disposition home or self-care (01) ==
LOC: ER 21:50 → EDUNIT# 21:50 → ER 22:27
DX: J45.901 Unspecified asthma with (acute) exacerbation (principal); J44.9 Chronic obstructive pulmonary disease, unspecified; K21.9 Gastro-esophageal reflux disease without esophagitis; F17.210 Nicotine dependence, cigarettes, uncomplicated; Z82.49 Family history of ischemic heart disease and other diseases of the circulatory system; Z80.3 Family history of malignant neoplasm of breast
CPT/HCPCS: 96372; 99284

== ENCOUNTER 2019-10-05 16:11 | Observation (INO) | payer MEDICAID ==
[~2019-10-05] VITALS: Ht 173 cm; Wt 179.5 kg
[~2019-10-05 16:11] MED LIST changes: +NEBU1KIT3 MC; +RT-ALBUINH INH
[2019-10-05] MEDS ORDERED: cefTRIAXone FOR IV USE 1,000 MG in WATER (STERILE) FOR INJECTION 10 ML IV SCH (16:30)
--- NOTE | 2019-10-05 16:45 | NUR ---
Christine Devlin admitted to room 424-1, with an admitting diagnosis of COPD EXACERBATION, on 10/05/19 from [facility] , accompanied by .CHRISTINE DEVLIN introduced to surroundings, call light, bed controls, phone, TV, temperature control, lights, meal times, smoking policy, visitor policy, side rail policy, bathrooms and showers. Patient Rights given to patient in the handbook.CHRISTINE DEVLIN verbalizes understanding that [facility] is not responsible for the loss or damage to any personal effects or valuables that are kept in the patients posession during their hospitalization. CHRISTINE DEVLIN verbalizes understanding of Interdisciplinary Patient Education. Patient and/or family were informed about the Rapid Response Team and its purpose.
[2019-10-05 17:09] VITALS: BP 134/94
[2019-10-05] MEDS ORDERED: methylPREDNISolone 125 MG (Solu-MEDROL) VIAL IV SCH (18:00)
[2019-10-05 18:12] LABS: BASOPHILS # (AUTO) 0.1 10^3/uL (0.0-0.1); BASOPHILS % (AUTO) 1 % (0-10); EOSINOPHILS # (AUTO) 0.5 10^3/uL (0.0-0.3); EOSINOPHILS % (AUTO) 7 % (0-10); HEMATOCRIT 41 % (35-52); HEMOGLOBIN 12.4 G/DL (11.5-16.0); LYMPHOCYTES # (AUTO) 1.9 X 10^3 (1.0-4.0); LYMPHOCYTES % (AUTO) 29 % (12-44); MEAN CORPUSCULAR HEMOGLOBIN 25 PG (25-34); MEAN CORPUSCULAR HGB CONC 30 G/DL (32-36); MEAN CORPUSCULAR VOLUME 83 FL (80-99); MEAN PLATELET VOLUME 9.1 FL (7.4-10.4); MONOCYTES # (AUTO) 0.8 X 10^3 (0.0-1.0); MONOCYTES % (AUTO) 11 % (0-12); NEUTROPHILS # (AUTO) 3.5 X 10^3 (1.8-7.8); NEUTROPHILS % (AUTO) 52 % (42-75); PLATELET COUNT 383 10^3/uL (130-400); RED CELL DISTRIBUTION WIDTH 14.9 % (10.0-14.5); WHITE BLOOD COUNT 6.7 10^3/uL (4.3-11.0)
--- NOTE | 2019-10-05 18:13 | Diagnostic Imaging Report ---
INDICATION: Cough Portable chest shows normal heart size and vascularity. The lungs are clear. There is no effusion or pneumothorax. IMPRESSION: No acute abnormality is seen with no change from 06/22/2019. Dictated by: Dictated on workstation # [id number]
[2019-10-05 18:33] LABS: ALANINE AMINOTRANSFERASE 25 U/L (0-55); ALBUMIN 3.6 GM/DL (3.2-4.5); ALKALINE PHOSPHATASE 91 U/L (40-136); BILIRUBIN,TOTAL 0.2 MG/DL (0.1-1.0); BUN/CREATININE RATIO 13; CARBON DIOXIDE 25 MMOL/L (21-32); CHLORIDE 106 MMOL/L (98-107); CREATININE SERUM 0.85 MG/DL (0.60-1.30); GFR ESTIMATED > 60; GLUCOSE 92 MG/DL (70-105); POTASSIUM 3.8 MMOL/L (3.6-5.0); SODIUM 140 MMOL/L (135-145)
[2019-10-05] MEDS ORDERED: ACETAMINOPHEN 325 MG TABLET ONE (19:33)
[2019-10-05 20:27] VITALS: BP 134/94
--- NOTE | 2019-10-05 20:38 | NUR ---
Albuterol SVN Q6H. Initiate 02 if sat is less than 90%. RT to reassess or reevaluate in 72 hours or as needed. Addendum: 10/05/19 at 2038 by GREGORY WORKMAN RT Amended: Links added.
[2019-10-05] MEDS ORDERED: RT-ALBUTEROL SULF 2.5 MG/3 ML PRE-MIX VIAL INH PRN (20:45)
--- OUTSIDE RECORDS SUMMARY | 2019-10-05 20:47 | XMS REPORT | Continuity of Care Document ---
Author Organization Unknown Address Unknown Phone Unavailable Allergies Active Description Code Type Severity Reaction Onset Reported/Identified Relationship to Patient Clinical Status Yes No Known Drug Allergies [id number] Drug Allergy Unknown N/A 10/20/2012 Medications There [...] F17.210 NICOTINE DEPENDENCE, CIGARETTES, UNCOMPL 09/18/2017 BETTINA ZAVAAL DO Ot J44.9 CHRONIC OBSTRUCTIVE PULMONARY DISEASE, [...] DUE TO EXCESS CA 10/18/2017 Ot J44.9 PHOTO STYLIST SEBASTIAN OBSTRUCTIVE PULMONARY DISEASE, U 10/18/2017 Ot [...] OBSTRUCTIVE PULMONARY DISEASE, U 01/26/2018 ARIAN, SHANNAN GARLAND MACHINE OPERATOR Ot K21.9 GASTRO-ESOPHAGEAL REFLUX DISEASE WITHOUT 01/26/2018 ARIAN, SHANNAN GARLAND MACHINE OPERATOR Ot S05.01XA INJ CONJUNCTIVA AND CORNEAL ABRASION W/O 01/26/2018 ARIAN, SHANNAN GARLAND MACHINE OPERATOR Ot X58.XXXA EXPOSURE TO OTHER SPECIFIED FACTORS, INI 01/26/2018 ARIAN, SHANNAN GARLAND MACHINE OPERATOR Ot Z79.51 NURSING HOME (CURRENT) USE OF INHALED STERO 01/26/2018 ARIAN, SHANNAN GARLAND MACHINE OPERATOR Ot Z79.52 NURSING HOME (CURRENT) USE OF SYSTEMIC STER 01/26/2018 ARIAN, SHANNAN GARLAND MACHINE OPERATOR Ot Z80.3 FAMILY HISTORY OF MALIGNANT NEOPLASM OF 01/26/2018 ARIAN, SHANNAN GARLAND MACHINE OPERATOR Ot Z86.19 PERSONAL HISTORY OF OTHER INFECTIOUS AND 01/26/2018 ARIAN, SHANNAN GARLAND MACHINE OPERATOR Ot Z87.19 PERSONAL HISTORY OF OTHER DISEASES OF 01/26/2018 ARIAN, SHANNAN GARLAND MACHINE OPERATOR Ot Z87.448 PERSONAL HISTORY OF OTHER DISEASES OF UR 01/28/2018 ARIAN, SHANNAN GARLAND MACHINE OPERATOR Ot D64.9 ANEMIA, UNSPECIFIED 01/28/2018 ARIAN SHANNAN GARLAND MACHINE OPERATOR Ot F17.210 NICOTINE DEPENDENCE, CIGARETTES, UNCOMPL 01/28/2018 ARIAN, SHANNAN GARLAND MACHINE OPERATOR Ot F32.9 MAJOR DEPRESSIVE DISORDER, SINGLE EPISOD 01/28/2018 ARIAN, SHANNAN GARLAND MACHINE OPERATOR Ot H57.11 OCULAR PAIN, RIGHT EYE 01/28/2018 ARIAN SHANNAN GARLAND MACHINE OPERATOR Ot J44.9 CHRONIC OBSTRUCTIVE PULMONARY DISEASE, U 01/28/2018 ARIAN, SHANNAN GARLAND MACHINE OPERATOR Ot K21.9 GASTRO-ESOPHAGEAL REFLUX DISEASE WITHOUT 01/28/2018 ARIAN, SHANNAN GARLAND MACHINE OPERATOR Ot S05.01XA INJ CONJUNCTIVA AND CORNEAL ABRASION W/O 01/28/2018 ARIAN, SHANNAN GARLAND MACHINE OPERATOR Ot X58.XXXA EXPOSURE TO OTHER SPECIFIED FACTORS, INI 01/28/2018 ARIAN, SHANNAN GARLAND MACHINE OPERATOR Ot Z79.51 HIMS CLERK (CURRENT) USE OF INHALED STERO 01/28/2018 ARIAN, SHANNAN GARLAND MACHINE OPERATOR Ot Z79.52 NURSING HOME (CURRENT) USE OF SYSTEMIC STER 01/28/2018 ARIAN, SHANNAN GARLAND MACHINE OPERATOR Ot Z80.3 FAMILY HISTORY OF MALIGNANT NEOPLASM OF 01/28/2018 ARIAN, SHANNAN GARLAND MACHINE OPERATOR Ot Z86.19 PERSONAL HISTORY OF OTHER INFECTIOUS AND 01/28/2018 ARIAN, SHANNAN GARLAND MACHINE OPERATOR Ot Z87.19 PERSONAL HISTORY OF OTHER [...] SPEC 04/27/2018 BRETT HASSAN DO Ot Z79.51 NURSING HOME (CURRENT) USE OF INHALED STERO 04/27/2018 BRETT [...] SPEC 04/29/2018 BRETT HASSAN DO Ot Z79.51 NURSING HOME (CURRENT) USE OF INHALED STERO 04/29/2018 BRETT [...] OTH MENTAL DISORDERS COMPLICATING PREGNA 05/02/2018 JOSE ORACH APRN Ot O99.511 DISEASES OF THE RESP SYS COMP , 05/02/2018 JOSE ROACH APRN Ot O99.611 DISEASES OF THE DGSTV SYS COMP 05/02/2018 JOSE ROACH APRN Ot R00 .2 PALPITATIONS 05/02/2018 JOSE ROACH APRN Ot Z3A.01 LESS THAN 8 WEEKS GESTATION OF 05/02/2018 JOSE ROACH APRN Ot Z79.51 HIMS CLERK (CURRENT) USE OF INHALED STERO 05/02/2018 JOSE ROACH APRN Ot Z79.52 NURSING HOME (CURRENT) USE OF SYSTEMIC STER 05/02/2018 JOSE [...] OF 05/06/2018 JOSE ROACH APRN Ot Z79.51 HIMS CLERK (CURRENT) USE OF INHALED STERO 05/06/2018 JOSE ROACH APRN Ot Z79.52 HIMS CLERK (CURRENT) USE OF SYSTEMIC STER 05/06/2018 JOSE [...] OF 05/07/2018 JOSE ROACH APRN Ot Z79.51 HIMS CLERK (CURRENT) USE OF INHALED STERO 05/07/2018 JOSE ROACH APRN Ot Z79.52 HIMS CLERK (CURRENT) USE OF SYSTEMIC STER 05/07/2018 JOSE [...] OF 06/13/2018 JOSE ROACH APRN Ot Z79.51 NURSING HOME (CURRENT) USE OF INHALED STERO 06/13/2018 JOSE ROACH APRN Ot Z79.52 HIMS CLERK (CURRENT) USE OF SYSTEMIC STER 06/13/2018 JOSE [...] OF 06/15/2018 BRETT HASSAN DO Ot Z79.52 NURSING HOME (CURRENT) USE OF SYSTEMIC STER 06/15/2018 BRETT [...] BRETT HASSAN DO Ot E83.42 HYPOMAGNESEMIA 06/18/2018 BERTT HASSAN DO Ot F12.10 CANNABIS ABUSE, UNCOMPLICATED [...] OF 06/18/2018 BRETT HASSAN DO, Ot Z79.52 HIMS CLERK (CURRENT) USE OF SYSTEMIC STER 06/18/2018 BRETT [...] Ot Z98.890 OTHER SPECIFIED POSTPROCEDURAL STATES 06/20/2018 RBETT HASSAN DO, Ot D64.9 ANEMIA, UNSPECIFIED 06/20/2018 [...] OF 06/20/2018 SONYA BRETT Ivett Ot Z79.52 NURSING HOME (CURRENT) USE OF SYSTEMIC STER 06/20/2018 SONYA [...] Ot G47.10 HYPERSOMNIA, UNSPECIFIED 06/22/2018 RACHEL SULTANA SPECIAL SERVICES SUPERVISOR Ot J45.998 OTHER ASTHMA 06/22/2018 RACHEL SULTANA E SPECIAL SERVICES SUPERVISOR Ot R05 COUGH 06/22/2018 JOSE SULTANAINE E SPECIAL SERVICES SUPERVISOR Ot R06.00 DYSPNEA, UNSPECIFIED 06/22/2018 JOSE SULTANAINE E SPECIAL SERVICES SUPERVISOR Ot R06.89 OTHER ABNORMALITIES OF BREATHING 06/22/2018 RACHEL SULTANA E SPECIAL SERVICES SUPERVISOR Ot Z72.0 TOBACCO USE 06/24/2018 JOSE SULTANAINE E SPECIAL SERVICES SUPERVISOR Ot G47.10 HYPERSOMNIA, UNSPECIFIED 06/24/2018 JOSE SULTANAINE E SPECIAL SERVICES SUPERVISOR Ot J45.998 OTHER ASTHMA 06/24/2018 RACHEL SULTANA SPECIAL SERVICES SUPERVISOR Ot R05 COUGH 06/24/2018 JOSE SULTANAINE E SPECIAL SERVICES SUPERVISOR Ot R06.00 DYSPNEA, UNSPECIFIED 06/24/2018 RACHEL SULTANA E SPECIAL SERVICES SUPERVISOR Ot R06.89 OTHER ABNORMALITIES OF BREATHING 06/24/2018 RACHEL SULTANA SPECIAL SERVICES SUPERVISOR Ot Z72.0 TOBACCO USE 07/15/2018 SONYA DO, [...] 07/15/2018 SONYA TRONCOSO BRETT K Ot Z79.51 NURSING HOME (CURRENT) USE OF INHALED STERO 07/15/2018 SONYA [...] BRINA CM MD, Ot Z79.8 99 OTHER NURSING HOME (CURRENT) DRUG THERAPY 12/15/2018 APRIL FONSECA MD [...] DISEASES AND CONDITIONS COMPL PREG/C 12/15/2018 APRIL FONSECA MD Ot R10. 13 EPIGASTRIC PAIN 12/15/2018 [...] CHRONIC OBSTRUCTIVE PULMONARY DISEASE, U 04/06/2019 SHEILA PICKENS MD, Ot K21.9 GASTRO-ESOPHAGEAL REFLUX DISEASE WITHOUT 04/06/2019 SHEILA PICKENS MD, Ot R10.9 UNSPECIFIED ABDOMINAL PAIN 04/06/2019 SHEILA PICKENS MD, Ot Z68.43 BODY MASS INDEX (BMI) 50.0-59.9, ADULT 04/06/2019 SHEILA PICKENS MD, Ot Z79.52 HIMS CLERK (CURRENT) USE OF SYSTEMIC STER 04/06/2019 SHEILA [...] NICOTINE DEPENDENCE, CIGARETTES, UNCOMPL 04/09/2019 SHEILA PICKENS MD Ot F32.9 MAJOR DEPRESSIVE DISORDER, SINGLE EPISOD 04/09/2019 SHEILA PICKENS MD Ot I10 ESSENTIAL (PRIMARY) HYPERTENSION 04/09/2019 SHEILA PICKENS MD, Ot J44.9 CHRONIC OBSTRUCTIVE PULMONARY DISEASE, U 04/09/2019 SHEILA PICKENS MD, Ot K21.9 GASTRO-ESOPHAGEAL REFLUX DISEASE WITHOUT 04/09/2019 SHEILA PICKENS MD, Ot R10.9 UNSPECIFIED ABDOMINAL PAIN 04/09/2019 SHEILA PICKENS MD, Ot Z68.43 BODY MASS INDEX (BMI) 50.0-59.9, ADULT 04/09/2019 SHEILA PICKENS MD, Ot Z79.52 HIMS CLERK (CURRENT) USE OF SYSTEMIC STER 04/09/2019 SHEILA PICKENS MD, Ot Z80.3 FAMILY HISTORY OF MALIGNANT NEOPLASM OF 04/09/2019 SHEILA PICKENS MD, Ot Z82.49 FAMILY HX OF ISCHEM HEART DIS AND OTH DI 04/09/2019 SHEILA PICKENS MD Ot Z87.440 PERSONAL HISTORY OF URINARY (TRACT) INFE 06/22/2019 ADIN MANN MD Ot F17.210 NICOTINE DEPENDENCE, CIGARETTES, UNCOMPL 06/22/2019 ADIN MANN MD, Ot J44.9 CHRONIC OBSTRUCTIVE PULMONARY DISEASE, U 06/22/2019 ADIN MANN MD, Ot J45.901 UNSPECIFIED ASTHMA WITH (ACUTE) EXACERBA 06/22/2019 ADIN MANN MD, Ot K21.9 GASTRO-ESOPHAGEAL REFLUX DISEASE WITHOUT 06/22/2019 ADIN MANN MD Ot R06.02 SHORTNESS OF BREATH 06/22/2019 ADIN MANN MD, Ot Z79.52 HIMS CLERK (CURRENT) USE OF SYSTEMIC STER 06/22/2019 ADIN MANN MD Ot Z80.3 FAMILY HISTORY OF MALIGNANT NEOPLASM OF 06/22/2019 ADIN MANN MD Ot Z82.49 FAMILY HX OF ISCHEM HEART DIS AND OTH DI 06/22/2019 JOSE ROACH APRN Ot R00 .2 PALPITATIONS 06/22/2019 JOSE ROACH SPECIAL SERVICES SUPERVISOR Ot R07 .9 CHEST PAIN, UNSPECIFIED 06/22/2019 BRINA CM MD Ot O14.9 5 UNSPECIFIED PRE-ECLAMPSIA, COMPLICATING 06/22/2019 BRINA CM MD Ot Z3A.0 0 WEEKS OF GESTATION OF NOT SPEC 06/24/2019 ADIN MANN MD Ot F17.210 NICOTINE DEPENDENCE, CIGARETTES, UNCOMPL 06/24/2019 ADIN MANN MD Ot J44.9 CHRONIC OBSTRUCTIVE PULMONARY DISEASE, U 06/24/2019 ADIN MANN MD Ot J45.901 UNSPECIFIED ASTHMA WITH (ACUTE) EXACERBA 06/24/2019 ADIN MANN MD Ot K21.9 GASTRO-ESOPHAGEAL REFLUX DISEASE WITHOUT 06/24/2019 ADIN MANN MD Ot R06.02 SHORTNESS OF BREATH 06/24/2019 ADIN MANN MD Ot Z79.52 NURSING HOME (CURRENT) USE OF SYSTEMIC STER 06/24/2019 ADIN [...] MD Ot R06.02 SHORTNESS OF BREATH 06/26/2019 ADIN MANN MD Ot Z79.52 HIMS CLERK (CURRENT) USE OF SYSTEMIC STER 06/26/2019 ADIN MANN MD Ot Z80.3 FAMILY HISTORY OF MALIGNANT NEOPLASM OF 06/26/2019 ADIN MANN MD Ot Z82.49 FAMILY HX OF ISCHEM HEART DIS AND OTH DI 08/17/2019 JOSE ROACH APRN Ot R00 .2 PALPITATIONS 08/17/2019 JOSE ROACH APRN Ot R07 .9 CHEST PAIN, UNSPECIFIED 08/17/2019 BRINA CM MD Ot O14.9 5 UNSPECIFIED PRE-ECLAMPSIA, COMPLICATING 08/17/2019 BRINA CM MD Ot Z3A.0 0 WEEKS OF GESTATION OF NOT SPEC 08/26/2019 RAYMUNDO SAAB, APRIL Preston Ot F17.210 NICOTINE DEPENDENCE, CIGARETTES, UNCOMPL 08/26/2019 APRIL FONSECA MD Ot J44. 9 CHRONIC OBSTRUCTIVE PULMONARY DISEASE, U 08/26/2019 APRIL FONSECA MD Ot J45.901 UNSPECIFIED ASTHMA WITH (ACUTE) EXACERBA 08/26/2019 APRIL FONSECA MD, Ot J45.909 UNSPECIFIED ASTHMA, UNCOMPLICATED 08/26/2019 APRIL FONSECA MD Ot K21. 9 GASTRO-ESOPHAGEAL REFLUX DISEASE WITHOUT 08/26/2019 APRIL FONSECA MD Ot Z80. 3 FAMILY HISTORY OF MALIGNANT NEOPLASM OF 08/26/2019 APRIL FONSECA MD, Ot Z82. 49 FAMILY HX OF ISCHEM HEART DIS AND OTH DI Procedures Code Description Performed By Per formed On 59E9LJA CA LIVERY OF PRODUCTS OF CONCEPTION, EXTE 10/16/2017 [id number] IN TRODUCTION OF OTH HORMONE INTO PERIPH 10/16/201728O3PYQ DE LIVERY OF PRODUCTS OF CONCEPTION, EXTE 12/10/2018 1A565MH IN TRODUCTION OF OTH HORMONE INTO PERIPH [...] ABO+Rh group BP NRG Transfusion band number [id number] NRG Blood group antibody screen NEGATIVE NR [...] Serum or plasma choriogonadotropin measurement (units/ volume) 68911 m[iU]/mL <5 Complete blood count (CBC) with [...] Serum or plasma choriogonadotropin measurement (units/ volume) 41854 m[iU]/mL <5 Magnesium - 05/02/18 13:10 Magnesium [...] NRG STATEMENT OF ADEQUACY: NRG INTERPRETATION/RESULT: NRG INFORMATION SERVICES CONSULTANT: NRG HPV mRNA E6/E7, SUREPATH VIAL Not [...] pa castillo - 12/10/18 09:10 WRISTBAND NUMBER [id number] NRG ABO+Rh group BP NRG Blood group [...] choriogonadotropin ( test) de tection NEGATIVE NEGATIVE COVID-19 ([facility]) - 09/22/19 13:25 Complete blood count (CBC) with automate d white blood cell (WBC) differential - 10/05/19 17:45 Blood leukocytes automated count (number/volume) 6.7 10*3/uL 4.3-11.0 Blood erythrocytes automated count (number/volume) 4.94 10*6/uL 4.35-5.85 Venous blood hemoglobin measurement (mass/volume) 12.4 g/dL 11.5-16.0 Blood hematocrit (volume fraction) 41 % 35-52 Automated erythrocyte mean corpuscular volume 83 [ foz_us] 80-99 Automated erythrocyte mean corpuscular h emoglobin (mass per erythrocyte) 25 pg 25-34 Automated erythrocyte mean corpuscular h emoglobin concentration measurement (mass/volume) 30 g/dL 32-36 Automated erythrocyte distribution width ratio 14. 9 % 10.0- 14.5 Automated blood platelet count (count/volume) 383 10*3/uL 130-400 Automated blood platelet mean volume measurement 9.1 [foz_us] 7.4-10.4 Automated blood neutrophils/100 leukocytes 52 % 42-75 Automated blood lymphocytes/100 leukocytes 29 % 12-44 Blood monocytes/100 leukocytes 11 % 0-12 Automated blood eosinophils/100 leukocytes 7 % 0-10 Automated blood basophils/100 leukocytes 1 % 0-10 Blood neutrophils automated count (number/volume) 3.5 10*3 1.8-7.8 Blood lymphocytes automated count (number/volume) 1.9 10*3 1.0-4.0 Blood monocytes automated count (number/volume) 0. 8 10*3 0.0-1.0 Automated eosinophil count 0.5 10*3/uL 0 .0-0.3 Automated blood basophil count (count/volume) 0.1 10*3/uL 0.0-0.1 Comprehensive metabolic panel - 10/05/19 17:45 Serum or plasma sodium measurement (moles/volume) 140 mmol/L 135-145 Serum or plasma potassium measurement (moles/volume) 3.8 mmol/L 3.6-5.0 Serum or plasma chloride measurement (moles/volume) 106 mmol/L 98-107 Carbon dioxide 25 mmol/L 21-32 Serum or plasma anion gap determination (moles/volume) 9 mmol/L 5-14 Serum or plasma urea nitrogen measurement (mass/volume ) 11 mg/dL 7-18 Serum or plasma creatinine measurement (mass/volume) 0.85 mg/dL 0.60-1.30 Serum or plasma urea nitrogen/creatinine mass ratio 13 NRG Serum or plasma creatinine measurement w ith calculation of estimated glomerular filtration rate > NRG Serum or plasma glucose measurement (mass/volume) 92 mg/dL 70-105 Serum or plasma calcium measurement (mass/volume) 9.0 mg/dL 8.5-10.1 Serum or plasma total bilirubin measurement (mass/volu me) 0.2 mg/dL 0.1-1.0 Serum or plasma alkaline phosphatase osman surement (enzymatic activity/volume) 91 U/L 40-136 Serum or plasma aspartate aminotransfera se measurement (enzymatic activity/volume) 21 U/L 5-34 Serum or plasma alanine aminotransferase measurement (enzymatic activity/volume) 25 U/L 0-55 Serum or plasma protein measurement (mass/volume) 7.0 g/dL 6.4-8.2 Serum or plasma albumin measurement (mass/volume) 3.6 g/dL 3.2-4.5 CALCIUM CORRECTED 9.3 mg/dL 8.5-10.1 Blood lactic acid measurement (moles/vol ume) - 10/05/19 19:02 Blood lactic acid measurement (moles/volume) 0.76 mmol/L 0.50-2.00 Encounters ACCT No. Visit Date/Time Discharge Status Pt. Type Provider Facility Loc./Unit Complaint [id number] 09/22/2019 13:20:00 09/22/2019 23:59: 59 CLS Outpatient BRINA CM [facility] [id number] 09/22/2019 13:20:00 Document Registration [id number] 03/03/2019 14:40:00 Document Registration [id number] 01/29/2019 16:00:00 Document Registration [id number] 11/25/2018 14:20:00 Document Registration [id number] 11/11/2018 16:00:00 Document Registration [id number] 09/23/2018 15:20:00 Document Registration [id number] 06/23/2018 10:00:00 Document Registration [id number] 05/13/2018 11:00:00 Document Registration [id number] 01/08/2018 14:40:00 Document Registration [id number] 10/01/2017 13:20:00 Document Registration [id number] 07/31/2017 09:00:00 Document Registration [id number] 08/17/2019 21:50:00 22:27:00 DIS Outpatient RAYMUNDO SAAB, APRIL Preston [facility] ER ASTHMA ATTACK [id number] 07/27/2019 13:30:00 05/11/2 020 23:59:59 CLS Preadmit BRINA CM MD [facility] RAD IUD CHECK UP [id number] 06/21/2019 22:50:00 00:38:00 DIS Emergency MACKENZIE ASAB, ADIN Camacho [facility] ER SOA,CONGESTION [id number] 04/06/2019 14:16:00 17:46:00 DIS Emergency NELIA SAAB, SHEILA Madi [facility] ER ABD PAIN [id number] 12/18/2018 13:20:00 23:59:59 CLS Outpatient BRINA CM MD [facility] LAB PRE-ECLAMPSIA [id number] 12/15/2018 01:31:00 06:04:00 DIS Emergency RAYMUNDO SAAB, APRIL Preston [facility] ER ABD PAIN [id number] 12/10/2018 06:56:00 14:00:00 DIS Inpatient BRINA CM MD [facility] LDRP INDUCTION [id number] 08/13/2018 14:00:00 23:59:59 CLS Preadmit JOSE ROACH APRN [facility] CARD PALPITATIONS,CHEST PAIN [id number] 05/14/2018 13:04:00 00:01:00 DIS Outpatient JOSE ROACH APRN [facility] CARD PALPITATIONS,CHEST PAIN [id number] 06/21/2018 21:04:00 06:25:00 DIS Outpatient RACHEL SULTANA APRN [facility] SLEEP HYPERSOMNIA [id number] 06/14/2018 19:02:00 02:20:00 DIS Emergency BRETT HASSAN DO a [facility] ER CP AND SOB X 3 DAYS [id number] 05/13/2018 16:05:00 23:59:59 CLS Preadmit BRINA CM MD [facility] CARD HEART PALPITATIONS [id number] 05/02/2018 12:55:00 019 17:04:00 DIS Emergency ROACHJOSE APRN [facility] ER CHEST PAIN [id number] 04/27/2018 19:41:00 019 22:08:00 DIS Emergency SONYABRETT Garcia DO Vi [facility] ER ABD CRAMPING AND BLEEDI NG [id number] 01/26/2018 16:18:00 018 17:59:00 DIS Emergency SHANNAN DON GARLAND MACHINE OPERATOR [facility] ER SPIDER IN R EYE [id number] 09/18/2017 11:08:00 018 17:00:00 DIS Outpatient BETTINA ZAVALA DO [facility] WSo DECREASED MOVEMENT/LOWER BACK PAIN/MUCUS DIS [id number] 09/01/2017 11:38:00 018 17:45:00 DIS Outpatient TOÑO BONILLA DO [facility] WSo VOMITING/HEADACHE [id number] 08/28/2017 08:57:00 018 23:59:59 CLS Preadmit TOI SAAB, BRINA Piedra [facility] RAD 30 WEEKS GESTATION OF Rico LAGUNA [id number] 10/20/2012 20:25:00 013 21:35:00 DIS Emergency NELIA SAAB, SHEILA Barraza [facility] ER SOB [id number] 10/05/2019 16:50:[address] Inpatient ISAÍAS SAAB, EDWINA Mayo [facility] 4TH REHABILITATION COUNSELLOR W EXCERBATION [id number] 10/17/2017 09:00:00 Document Registration
[2019-10-05] MEDS ORDERED: ENOXAPARIN 60 MG/0.6 ML (LOVENOX) SYR SC SCH (21:00)
[2019-10-05] MEDS ORDERED: RT-ALBUTEROL SULF 2.5 MG/3 ML PRE-MIX VIAL INH SCH (21:00)
[2019-10-05] MEDS ORDERED: RT-ALBUTEROL SULF 2.5 MG/3 ML PRE-MIX VIAL ONE (21:01)
[2019-10-05] MEDS ORDERED: RX-ALBUTEROL INHALER 8 GM HFA (VENTOLIN) IH ONE (22:44)
--- NOTE | 2019-10-06 02:49 | NUR ---
pt chose to leave ama.. meds were given as ordered, all needs were met.. she c/o being hot fan given .. food given albuterol inhaler given as per home meds.. pt was upset because her daughter was sick at home and could not come visit . iv removed ama paperwork signed and pt taken downstairs via wheelchair to friends that were waiting.
--- NOTE | 2019-10-08 15:38 | Short Stay Summary ---
History of Present Illness History of Present Illness Reason for visit/HPI Direct admit from clinic for COPD exacerbation. Date of Admission Oct 05, 2019 at 16:50 Date of Discharge Oct 05, 2019 at 23:27 Time Seen by Provider: 00:00 (Not seen by ak- dennise AMA before being seen) Attending Physician Edwina Metz MD Admitting Physician Brina Cm MD Consult Allergies and Home Medications Allergies Coded Allergies: No Known Drug Allergies (Unverified , 10/20/12) Home Medications Albuterol 8.5 Gm Hfa.aer.ad, 8.5 GM IH Q2, (Reported) 2 PUFFS Albuterol Sulfate 1 Puff Puff, 2 PUFF INH Q4H PRN for WHEEZING 1 PUFF = 90 MCG Prescribed by: APRIL FONSECA on 08/17/192211 Azithromycin 250 Mg Tablet, 250 MG PO DAILY Prescribed by: ADIN MANN on 06/22/19 0022 Beclomethasone Dipropionate 8.7 Gm Aer.w.adap, 8.7 GM IH BID Prescribed by: BETTINA ZAVALA on 09/18/17 1540 Ibuprofen 600 Mg Tablet, 600 MG PO Q6H Prescribed by: BRINA CM on 10/18/17 0948 Ibuprofen 600 Mg Tablet, 600 MG PO Q6H Prescribed by: TOÑO BONILLA on 12/12/18 0813 Ipratropium/Albuterol Sulfate 3 Ml Ampul.neb, 3 ML IH Q6H PRN for SHORTNESS OF BREATH Prescribed by: BETTINA ZAVALA on 09/18/17 1540 Omeprazole 40 Mg Capsule.dr, 40 MG PO DAILY Prescribed by: APRIL FONSECA on 12/15/18 0551 Omeprazole 20 Mg Tablet., 20 MG PO BID Prescribed by: SHEILA WALTERS on 04/06/19 1741 Pnv No.122/Iron/Folic Acid 1 Each Tablet, 1 EACH PO DAILY Prescribed by: BRETT HASSAN on 04/27/18 2151 Prednisone 20 Mg Tab, 40 MG PO BID Prescribed by: APRIL FONSECA on 12/15/18 0535 Prednisone 20 Mg Tab, 40 MG PO DAILY Prescribed by: ADIN MANN on 06/22/19 0022 Patient Home Medication List Home Medication List Reviewed: No Past Bbwoyub-Mrrsay-Qtayah Hx Patient Social History Alcohol Use: Occasionally Uses Number of Drinks Today: 2 Alcohol Beverage of Choice: Wine, Vodka Recreational Drug Use: No Drug of Choice: MARIJUANA Smoking Status: Current Everyday Smoker Type Used: Cigarettes 2nd Hand Smoke Exposure: Yes Physical Abuse Screen: No Sexual Abuse: No Recent Foreign Travel: No Contact w/other who traveled: No Recent Hopitalizations: No Recent Infectious Disease Expo: No Immunizations Up To Date Tetanus Booster (TDap): More than 5yrs Pediatric: No Seasonal Allergies Seasonal Allergies: Yes Surgeries No Abdominal Respiratory Yes Currently Using CPAP: No Currently Using BIPAP: No Cardiovascular No Hypertension Neurological No 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 System : No Hx 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 Disorders: No Sexually Transmitted Disease: Yes (HERPES, 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 ) HIV/AIDS: No 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, 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 Genitourinary No UTI-Chronic Gastrointestinal No Gastroesophageal Reflux, Hemorrhoids Musculoskeletal No Endocrine History of Endocrine Disorders: No HEENT History of HEENT Disorders: No Loss of Vision: Denies Hearing Impairment: Denies Cancer No Psychosocial History of Psychiatric Problem: No Behavioral Health Disorders: Depression Integumentary History of Skin or Integumenta: No Skin/Integumentary Disorders: Herpes Blood Transfusions History of Blood Disorders: No Adverse Reaction to a Blood Tr: No Family Medical History Family Hx: Asthma 19 FATHER G8 BROTHER Completed stroke MATERNAL GRANDFATHER Diabetes mellitus 19 FATHER 19 MOTHER Drug abuse 19 FATHER G8 BROTHER G8 BROTHER G8 BROTHER FH: breast cancer MATERNAL GRANDMOTHE ( AGE 71) Headache disorder G8 SISTER Hypertension 19 MOTHER G8 BROTHER Psychosocial problem G8 BROTHER Seizure disorder MATERNAL GRANDMOTHE Physical Exam Vital Signs Vital Signs - First Documented 10/05/19 10/05/19 17:09 20:27 Temp 36.8 Pulse 95 Resp 20 B/P (MAP) 134/94 Pulse Ox 98 O2 Delivery Room Air FiO2 21 Capillary Refill : Height, Weight, BMI Height: 5'11.00" Weight: 362lbs. 0.8oz. 164.649874lm; 59.97 BMI Method:Stated Clinical Quality Measures DVT/VTE Risk/Contraindication: Risk Factor Score Per Nursin RFS Level Per Nursing on Admit: 2=Moderate Short Stay Diagnosis Discharge Diagnosis-Short Stay Admission Diagnosis: COPD exacerbation COVID PUI Final Discharge Diagnosis: COPD exacerbation COVID PUI Left AMA Conclusion Labs Microbiology 10/05/19 Blood Culture - Preliminary, Resulted No growth EDWINA METZ MD Oct 08, 2019 15:38
== END 2019-10-05 23:27 | disposition left against medical advice (07) ==
LOC: 4TH 16:50
PROVIDERS: ADMIT Family Medicine; ATTEND Family Medicine
DX: J44.1 Chronic obstructive pulmonary disease with (acute) exacerbation (principal); I10 Essential (primary) hypertension; K21.9 Gastro-esophageal reflux disease without esophagitis; F32.9 Major depressive disorder, single episode, unspecified; F17.210 Nicotine dependence, cigarettes, uncomplicated; Z20.828 Contact with and (suspected) exposure to other viral communicable diseases; Z79.899 Other long term (current) drug therapy
CPT/HCPCS: 36415; 71045; 80053; 83605; 85025; 87040; 87635; 93005; 99211; G0378

== ENCOUNTER 2020-08-31 14:38 | Emergency (ER) | payer MEDICAID ==
[~2020-08-31] VITALS: Ht 182 cm; Wt 176.4 kg
[~2020-08-31 14:38] MED LIST changes: -ACYC400T PO; +ACYC400T21 PO
[2020-08-31 14:43] VITALS: BP 128/69
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
[2020-08-31] MEDS ORDERED: KETOROLAC 60 MG/2 ML VIAL IM ONE (15:45)
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
== END 2020-08-31 16:21 | disposition home or self-care (01) ==
LOC: EDUNIT# 14:38 → ER 14:40
DX: S83.412A Sprain of medial collateral ligament of left knee, initial encounter (principal); J44.9 Chronic obstructive pulmonary disease, unspecified; I10 Essential (primary) hypertension; K21.9 Gastro-esophageal reflux disease without esophagitis; F17.210 Nicotine dependence, cigarettes, uncomplicated; Z79.52 Long term (current) use of systemic steroids; Z79.899 Other long term (current) drug therapy; W20.8XXA Other cause of strike by thrown, projected or falling object, initial encounter
CPT/HCPCS: 73562

== ENCOUNTER 2020-10-15 13:31 | Emergency (ER) | payer MEDICAID ==
[~2020-10-15] VITALS: Ht 180 cm; Wt 175.0 kg
[~2020-10-15 13:31] MED LIST changes: -OMEP40CA27 PO; +OMEP40CA6 PO
[2020-10-15] MEDS ORDERED: RT-ALBUTEROL SULF 2.5 MG/3 ML PRE-MIX VIAL ONE (14:09)
[2020-10-15] MEDS ORDERED: RT-IPRATROPIUM (ATROVENT) 0.5MG/2.5ML AMP IH ONE ×2 (14:10→14:15)
[2020-10-15] MEDS ORDERED: RT-ALBUTEROL SULF 2.5 MG/3 ML PRE-MIX VIAL INH ONE (14:15)
[2020-10-15] MEDS ORDERED: methylPREDNISolone 125 MG (Solu-MEDROL) VIAL IVP ONE (14:15)
--- NOTE | 2020-10-15 15:00 | Diagnostic Imaging Report ---
EXAMINATION: Chest 1 view HISTORY: Shortness of breath COMPARISON: 10/05/2019 FINDINGS: The lungs are clear without edema or pneumonia. No pleural effusion or pneumothorax. Heart size is normal. IMPRESSION: 1. Clear lungs. Dictated by: Dictated on workstation # [id number]
--- NOTE | 2020-10-15 15:05 | ED Respiratory ---
General Chief Complaint: Cough/Cold/Flu Symptoms Stated Complaint: SOA/COUGH Nursing Triage Note: PT TO ED W/ C/O PERSISTENT COUGH ONSET X5 DAYS. REPORTS HAS HX OF ASTHMA ET COPD ET THINKS SHE'S HAVING AN EXACERBATION. Source: patient Exam Limitations: no limitations History of Present Illness Date Seen by Provider: Oct 15, 2020 Time Seen by Provider: 13:45 Initial Comments Patient is a 35-year-old female who presents to the emergency department today with a chief complaint of shortness of breath and cough for the last week. Patient states that she has a history of asthma and COPD and states that she went to the clinic earlier in the week and was given cough medications and a steroid prescription. She has been using this as well as her albuterol treatments at home without any relief of symptoms. Patient endorses congestion runny nose and sore throat. She states she is not Covid vaccinated and she is unaware of any Covid contacts. She denies any nausea vomiting or diarrhea. No urinary complaints. She does have several small children at home. She reports none of them are sick. Patient states that she does smoke cigarettes approximately 5 or 6 a day. She states she has been taking Tessalon Perles and prednisone without any relief. She is requesting some Phenergan cough syrup. Patient also states that she has a headache due to her cough as well as chest soreness. All other review of systems reviewed and negative except as stated above. Timing/Duration: week, getting worse Severity: severe Prior Episodes/Possible Cause: frequent episodes Modifying Factors: Improves With Albuterol Inhaler, Improves With Albuterol Nebulizer Associated Symptoms: chest pain/soreness, cough, headache, nasal congestion, nasal drainage, shortness of breath, sore throat, wheezing Allergies and Home Medications Allergies Coded Allergies: No Known Drug Allergies (Unverified , 10/20/12) Home Medications Albuterol 8.5 Gm Hfa.aer.ad, 8.5 GM IH Q2, (Reported) 2 PUFFS Albuterol Sulfate 1 Puff Puff, 2 PUFF INH Q4H PRN for WHEEZING 1 PUFF = 90 MCG Prescribed by: APRIL FONSECA on 08/17/192211 Azithromycin 250 Mg Tablet, 250 MG PO DAILY Prescribed by: ADIN MANN on 06/22/19 0022 Beclomethasone Dipropionate 8.7 Gm Aer.w.adap, 8.7 GM IH BID Prescribed by: BETTINA ZAVALA on 09/18/17 1540 Ibuprofen 600 Mg Tablet, 600 MG PO Q6H Prescribed by: BRINA CM on 10/18/17 0948 Ibuprofen 600 Mg Tablet, 600 MG PO Q6H Prescribed by: TOÑO BONILLA on 12/12/18 0813 Ipratropium/Albuterol Sulfate 3 Ml Ampul.neb, 3 ML IH Q6H PRN for SHORTNESS OF BREATH Prescribed by: BETTINA ZAVALA on 09/18/17 1540 Omeprazole 40 Mg Capsule.dr, 40 MG PO DAILY Prescribed by: APRIL FONSECA on 12/15/18 0551 Omeprazole 20 Mg Tablet.dr, 20 MG PO BID Prescribed by: SHEILA WALTERS on 04/06/19 1741 Pnv No.122/Iron/Folic Acid 1 Each Tablet, 1 EACH PO DAILY Prescribed by: BRETT HASSAN on 04/27/18 2151 Prednisone 20 Mg Tab, 40 MG PO BID Prescribed by: APRIL FONSECA on 12/15/18 0535 Prednisone 20 Mg Tab, 40 MG PO DAILY Prescribed by: ADIN MANN on 06/22/19 0022 Promethazine HCl/Codeine 473 Ml Syrup, 5 ML PO Q6H PRN for cough/nausea Prescribed by: RODRÍGUEZ LYNCH on 10/15/20 1632 Patient Home Medication List Home Medication List Reviewed: Yes Review of Systems Review of Systems Constitutional: see HPI EENTM: nose congestion, throat pain Respiratory: cough, short of breath Cardiovascular: other Gastrointestinal: no symptoms reported Genitourinary: no symptoms reported Musculoskeletal: no symptoms reported Skin: no symptoms reported Psychiatric/Neurological: Anxiety All Other Systems Reviewed Negative Unless Noted: Yes Past Urcmind-Efuivq-Odbvgy Hx Patient Social History Tobacco Use?: Yes Tobacco type used: Cigarettes Smoking Status: Current Everyday Smoker Use of E-Cig and/or Vaping dev: No Substance use?: Yes Substance type: Marijuana, Other Substance frequency: Couple times a week Alcohol Use?: Yes Alcohol Frequency: Couple times a week Pt feels they are or have been: No Immunizations Up To Date Tetanus Booster (TDap): Unknown PED Vaccines UTD: No Seasonal Allergies Seasonal Allergies: Yes Past Medical History Surgery/Hospitalization HX: COPD, ASTHMA Surgeries: No Abdominal Respiratory: Yes Asthma, COPD Currently Using CPAP: No Currently Using BIPAP: No Cardiac: No Hypertension Neurological: No 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 Disorders: No 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, 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 Sexually Transmitted Disease: Yes (HERPES, 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 ) HIV/AIDS: No Genitourinary: No UTI-Chronic Gastrointestinal: No Gastroesophageal Reflux, Hemorrhoids Musculoskeletal: No Endocrine: No HEENT: No Loss of Vision: Denies Hearing Impairment: Denies Cancer: No Psychosocial: No Depression Integumentary: No Herpes Blood Disorders: No Adverse Reaction/Blood Tranf: No Family Medical History Asthma 19 FATHER G8 BROTHER Completed stroke MATERNAL GRANDFATHER Diabetes mellitus 19 FATHER 19 MOTHER Drug abuse 19 FATHER G8 BROTHER G8 BROTHER G8 BROTHER FH: breast cancer MATERNAL GRANDMOTHE ( AGE 71) Headache disorder G8 SISTER Hypertension 19 MOTHER G8 BROTHER Psychosocial problem G8 BROTHER Seizure disorder MATERNAL GRANDMOTHE Physical Exam Vital Signs - First Documented Capillary Refill : Less Than 3 Seconds Height: 5'11.00" Weight: 362lbs. 0.8oz. 164.349761oo; 54.00 BMI Method:Stated General Appearance: WD/WN, moderate distress HEENT: PERRL/EOMI, pharyngeal erythema Neck: normal inspection Respiratory: accessory muscle use, wheezing, expiration Cardiovascular: regular rate, rhythm Gastrointestinal: non tender, soft Extremities: normal range of motion Neurologic/Psychiatric: alert, normal mood/affect, oriented x 3 Skin: normal color, warm/dry Progress/Results/Core Measures Suspected Sepsis SIRS Temperature: Pulse: 102 Respiratory Rate: 24 Blood Pressure 183 /113 Mean: 136 Results/Orders Lab Results Laboratory Tests Test 10/15/20 14:04 Range/Units Influenza Type A (RT-PCR) Not Detected Not Detecte Influenza Type B (RT-PCR) Not Detected Not Detecte SARS-CoV-2 RNA (RT-PCR) Not Detected Not Detecte Micro Results Microbiology 10/15/20 Respiratory Syncytial Virus Ag - Final, Complete My Orders Orders - RODRÍGUEZ LYNCH MD Rsv Antigen (10/15/20 14:09) Chest 1 View, Ap/Pa Only (10/15/20 14:09) Albuterol Pre-Mix Nebs (Rt) (Proventil (10/15/20 14:15) Ipratropium 0.02% Neb Solution (Atrovent (10/15/20 14:15) Svn Small Volume Nebulizer (10/15/20 14:11) Svn Small Volume Nebulizer (10/15/20 14:11) Methylprednisolone Sod Succ (Solu-Medrol (10/15/20 14:15) Ipratropium 0.02% Neb Solution (Atrovent (10/15/20 14:10) Medications Given in ED Vital Signs/I&O 10/15/20 10/15/20 10/15/20 10/15/20 13:59 13:59 14:17 17:56 Temp 37.0 Pulse 102 98 Resp 24 16 B/P (MAP) 183/113 (136) 156/91 Pulse Ox 95 98 98 O2 Delivery Room Air Room Air Room Air Room Air Capillary Refill : Less Than 3 Seconds Blood Pressure Mean: 136 Progress Note : Time: 16:32 Progress Note Reevaluated patient she looks much improved after her hour-long breathing treatment. She states she feels much better. She still has some expiratory wheezes bilaterally but is in absolutely 0 respiratory distress. Vital signs are stable. Her RSV is not back yet. Patient would like to be discharged. She does not want another breathing treatment at this time. She states she has medications at home. I have strongly encouraged her to quit smoking. I have sent a prescription for Phenergan with codeine to the pharmacy. I have advised her to continue her prednisone until it is finished. I do not believe she needs any antibiotics at this time. All questions were sought and answered. Patient is stable for discharge. Diagnostic Imaging Diagonstic Imaging: Xray Plain Films/CT/US/NM/MRI: chest Comments [facility]. [place], [place] NAME: JUDY DEVLIN [facility] REC#: [id number] PT STATUS: REG ER : 1985 PHYSICIAN: RODRÍGUEZ LYNCH MD ADMIT DATE: 10/15/20/ER Draft Date of Exam:10/15/20 CHEST 1 VIEW, AP/PA ONLY EXAMINATION: Chest 1 view HISTORY: Shortness of breath COMPARISON: 10/05/2019 FINDINGS: The lungs are clear without edema or pneumonia. No pleural effusion or pneumothorax. Heart size is normal. IMPRESSION: 1. Clear lungs. Dictated on workstation # [id number] Dict: 10/15/20 1459 Trans: 10/15/20 1500 [id number] [id number] Interpreted by: MARYCRUZ WATTS MD Electronically signed by: Departure Impression Primary Impression: Asthma exacerbation Qualified Codes: J45.41 - Moderate persistent asthma with (acute) exacerbation Disposition: HOME, SELF-CARE Condition: Stable Departure-Patient Inst. Decision time for Depature: 15:08 Referrals: BRINA CM MD (PCP/Family) Primary Care Physician Patient Instructions: Asthma, Adult ED Add. Discharge Instructions: Please try and stop smoking or at least cut back further so that you are not kicking off an asthma attack. Continue your prednisone and finish this prescription. Use your albuterol nebulizer every 4-6 hours and your albuterol inhaler in between as needed. Come back to the emergency room for reevaluation if you have worsening shortness of breath, persistent cough, especially fever or any other emergent concerning symptoms. Scripts Promethazine HCl/Codeine (Promethazine-Codeine Solution) 473 Ml Syrup 5 ML PO Q6H PRN for cough/nausea, #100 ML Prov: RODRÍGUEZ LYNCH MD 10/15/20 RODRÍGUEZ LYNCH MD Oct 15, 2020 15:05
[2020-10-15] MEDS ORDERED: PROM118S PO (15:10)
[2020-10-15] MEDS ORDERED: PROM473S9 PO (16:31)
[2020-10-15 17:56] VITALS: BP 156/91
== END 2020-10-15 16:46 | disposition home or self-care (01) ==
LOC: EDUNIT# 13:31 → ER 13:32
DX: J44.9 Chronic obstructive pulmonary disease, unspecified (principal); J45.901 Unspecified asthma with (acute) exacerbation; F17.210 Nicotine dependence, cigarettes, uncomplicated; Z79.52 Long term (current) use of systemic steroids; Z79.51 Long term (current) use of inhaled steroids; Z79.899 Other long term (current) drug therapy; Z20.822 Contact with and (suspected) exposure to COVID-19
CPT/HCPCS: 71045; 87420; 87636; 94640; 94644

== ENCOUNTER 2021-01-14 19:35 | Emergency (ER) | payer MEDICAID ==
[~2021-01-14] VITALS: Ht 71 cm; Wt 170.3 kg
[~2021-01-14 19:35] MED LIST changes: +PROM118S PO; +PROM473S9 PO
[2021-01-14] MEDS ORDERED: ASPIRIN 81 MG CHEW (CHILDREN'S ASA) PO ONE (19:45)
[2021-01-14] MEDS ORDERED: ONDANSETRON 4 MG/2 ML (SDV) Z0FRAN IVP ONE (20:00)
[2021-01-14] MEDS ORDERED: PANTOPRAZOLE 40 MG (PROTONIX) VIAL IV ONE (20:00)
[2021-01-14] MEDS ORDERED: NITROGLYCERIN 2% OINT 1 GM UNIT DOSE PACKET TOP ONE (20:00)
[2021-01-14 20:01] LABS: BASOPHILS # (AUTO) 0.1 10^3/uL (0.0-0.1); BASOPHILS % (AUTO) 1 % (0-10); EOSINOPHILS # (AUTO) 0.5 10^3/uL (0.0-0.3); EOSINOPHILS % (AUTO) 4 % (0-10); HEMATOCRIT 44 % (35-52); HEMOGLOBIN 13.5 g/dL (11.5-16.0); LYMPHOCYTES % (AUTO) 25 % (12-44); MEAN CORPUSCULAR HEMOGLOBIN 26 pg (25-34); MEAN CORPUSCULAR HGB CONC 31 g/dL (32-36); MEAN CORPUSCULAR VOLUME 85 fL (80-99); MEAN PLATELET VOLUME 8.5 fL (9.0-12.2); MONOCYTES # (AUTO) 1.2 10^3/uL (0.0-1.0); MONOCYTES % (AUTO) 10 % (0-12); NEUTROPHILS # (AUTO) 7.4 10^3/uL (1.8-7.8); NEUTROPHILS % (AUTO) 61 % (42-75); PLATELET COUNT 350 10^3/uL (130-400); WHITE BLOOD COUNT 12.1 10^3/uL (4.3-11.0)
[2021-01-14 20:14] LABS: ALBUMIN 3.7 GM/DL (3.2-4.5); POTASSIUM 3.6 MMOL/L (3.6-5.0)
[2021-01-14 20:15] LABS: CALCIUM 8.9 MG/DL (8.5-10.1); INR 1.1 (0.8-1.4); PROTHROMBIN TIME PATIENT 14.1 SEC (12.2-14.7)
[2021-01-14 20:16] LABS: TOTAL PROTEIN 6.9 GM/DL (6.4-8.2)
[2021-01-14 20:18] LABS: BILIRUBIN,TOTAL 0.4 MG/DL (0.1-1.0)
[2021-01-14 20:20] LABS: CREATININE SERUM 0.86 MG/DL (0.60-1.30)
[2021-01-14 20:23] LABS: MAGNESIUM 1.8 MG/DL (1.6-2.4)
--- NOTE | 2021-01-14 20:29 | Diagnostic Imaging Report ---
EXAMINATION: Chest 1 view. HISTORY: Chest pain. COMPARISON: 10/15/2020. FINDINGS: The lungs are clear without edema or pneumonia. No pleural effusion or pneumothorax. Heart size is normal. IMPRESSION: Clear lungs. Dictated by: Dictated on workstation # [id number]
[2021-01-14 20:31] LABS: CREATINE KINASE MB 2.7 NG/ML (<6.6)
[2021-01-14] MEDS ORDERED: KETOROLAC 30 MG/ML VIAL IVP ONE (20:45)
[2021-01-14 20:50] LABS: BILIRUBIN,URINE NEGATIVE (NEGATIVE); CLARITY,URINE CLEAR; COLOR,URINE YELLOW; GLUCOSE, URINE (UA) NEGATIVE (NEGATIVE); KETONES,URINE NEGATIVE (NEGATIVE); LEUKOCYTE ESTERASE ,URINE NEGATIVE (NEGATIVE); NITRITE,URINE NEGATIVE (NEGATIVE); PROTEIN,URINE NEGATIVE (NEGATIVE)
[2021-01-14 21:01] LABS: BACTERIA,URINE NEGATIVE /HPF
[2021-01-14 21:02] LABS: AMPHETAMINE SCREEN, URINE NEGATIVE (NEGATIVE); BARBITURATE SCREEN URINE NEGATIVE (NEGATIVE); BENZODIAZEPINES SCREEN URINE NEGATIVE (NEGATIVE); CANNABINOID SCREEN, URINE POSITIVE (NEGATIVE); COCAINE SCREEN URINE POSITIVE (NEGATIVE); METHADONE STAT NEGATIVE (NEGATIVE); METHAMPHETAMINE SCREEN URINE S POSITIVE (NEGATIVE); OPIATE SCREEN URINE NEGATIVE (NEGATIVE); OXYCODONE STAT NEGATIVE (NEGATIVE); PROPOXYPHENE STAT NEGATIVE (NEGATIVE); TRICYCLIC ANTIDEPRESSANTS SCRE NEGATIVE (NEGATIVE)
[2021-01-14] MEDS ORDERED: NS 100 ML (IVPB) BAG IV ONE (21:30)
[2021-01-14] MEDS ORDERED: IOHEXOL 350 MG/ML 100 ML (OMNIPAQUE 350) VIAL IV ONE (21:30)
[2021-01-14] MEDS ORDERED: HOLD METFORMIN - RECEIVED CONTRAST 20 ML VIAL IV SCH (21:30)
--- NOTE | 2021-01-14 21:31 | Diagnostic Imaging Report ---
EXAMINATION: CT angiography of the chest with and without, CT of the abdomen and pelvis with and without. TECHNIQUE: Noncontrast enhanced helical images were obtained through the chest, abdomen and pelvis. Contrast enhanced thin section helical images were obtained through the chest, abdomen and pelvis with intravenous contrast timed for the optimal opacification of the arterial structures per departmental CTA protocol. Post-processing, retro reconstructions and interpretation of angiographic images of the vessels was performed. 3D MIP reconstructions were performed and reviewed. All CT scans use one or more of the following dose optimizing techniques: automated exposure control, MA and/or KvP adjustment based on patient size and exam type or iterative reconstruction. HISTORY: Chest pain, abdominal pain. COMPARISON: 12/15/2018. FINDINGS: There is no pulmonary embolism. There is no edema or pneumonia. No pleural effusion. No pneumothorax. No suspicious nodules. There is no axillary or supraclavicular lymphadenopathy. There is no mediastinal lymphadenopathy. Heart size is normal. There are no coronary artery calcifications. No pericardial effusion. Aorta is normal in caliber. The liver is normal without focal lesion. There is no biliary ductal dilation. Gallbladder is normal. Pancreas is normal. Spleen is normal. Adrenal glands are normal. The kidneys are normal. There is no hydronephrosis. Urinary bladder is normal. An intrauterine device is present. Visualized bowel is normal in caliber without obstruction or inflammation. No free fluid or air. No abdominal or pelvic lymphadenopathy. Aorta is normal in caliber without aneurysm. There are no suspicious osseus lesions. IMPRESSION: 1. No pulmonary embolism, clear lungs. 2. No acute abnormality in the abdomen or pelvis. Dictated by: Dictated on workstation # [id number]
[2021-01-14] MEDS ORDERED: meTOprolol SUCCINATE 100 MG (TOPROL XL) TAB PO ONE (22:15)
[2021-01-14] MEDS ORDERED: hydrALAZINE (APESOLINE) 20 MG/ML VIAL IV ONE ×2 (22:15→23:30)
[2021-01-14] MEDS ORDERED: HYDR-3922 PO (23:12)
[2021-01-14] MEDS ORDERED: METO100T6 PO (23:12)
--- NOTE | 2021-01-14 23:12 | ED Chest Pain ---
General Chief Complaint: Chest Pain Stated Complaint: CP Nursing Triage Note: Pt arrives via POV from home with c/o substernal chest pain; onset 30 minutes. Pt reports eating fried food about two hours ago, states now she is having intense chest pain, relieved by pressing on her chest. Pt denies radiating pain. Reports hx of HTN but is not taking her medication. Source: patient History of Present Illness Date Seen by Provider: Jan 14, 2021 Time Seen by Provider: 19:42 Initial Comments PT ARRIVES VIA POV FROM HOME C/O CHEST PAIN POINTS TO MID CHEST AND EPIGASTRIC AREAS AREA OF PAIN PAIN BEGAN 30 MINUTES PRIOR TO ARRIVAL, WHILE LAYING IN BED DESCRIBES PAIN "PULLING/CRAMPING/PRESSURE" NO RADIATION OF PAIN NOTHING WORSENS OR IMPROVES PAIN C/O NAUSEA, NO VOMITING NO SHORTNESS OF BREATH NO PALPITATIONS NO DIZZINESS OR SYNCOPE NO COUGH, NO FEVER OR RECENT ILLNESS NO HISTORY OF SIMILAR HAS NOT TAKEN ANYTHING FOR PAIN PT ATE FRIED FISH AND SPAGHETTI 2 HOURS AGO PT HAS HISTORY OF HTN AND HAS BEEN PRESCRIBED MEDICATIONS FOR HIGH BLOOD PRESSURE, BUT HAS TAKEN ANY, STATING "I DON'T BE FEELIN' LIKE I NEED 'EM" DENIES SMOKING, ALCOHOL OR DRUG USE LMP --FIRST PART OF , HAS MIRENA IUD IN PLACE. PCP: [facility], DR. CM Allergies and Home Medications Allergies Coded Allergies: No Known Drug Allergies (Unverified , 10/20/12) Patient Home Medication List Home Medication List Reviewed: Yes Albuterol (Proair Hfa) 8.5 Gm Hfa.aer.ad, 8.5 GM IH Q2, (Reported) Entered as Reported by: RAMU WALLIS on 10/20/122034 Albuterol Sulfate (Ventolin Hfa) 1 Puff Puff, 2 PUFF INH Q4H PRN for WHEEZING Prescribed by: APRIL FONSECA on 08/17/19 221 Azithromycin (Azithromycin) 250 Mg Tablet, 250 MG PO DAILY Prescribed by: ADIN MANN on 06/22/19 0022 Beclomethasone Dipropionate (Qvar) 8.7 Gm Aer.w.adap, 8.7 GM IH BID Prescribed by: BETTINA ZAVALA on 09/18/17 1540 Hydralazine HCl (Hydralazine HCl) 10 Mg Tablet, 10 MG PO TID PRN for BLOOD PRESSURE Prescribed by: BRETT HASSAN on 01/14/21 2312 Ibuprofen (Ibu) 600 Mg Tablet, 600 MG PO Q6H Prescribed by: BRINA CM on 10/18/17 0948 Ibuprofen (Ibu) 600 Mg Tablet, 600 MG PO Q6H Prescribed by: TOÑO BONILLA on 12/12/18 0813 Ipratropium/Albuterol Sulfate (Iprat-Albut 0.5-3(2.5) mg/3 ml) 3 Ml Ampul.neb, 3 ML IH Q6H PRN for SHORTNESS OF BREATH Prescribed by: BETTINA ZAVALA on 09/18/17 1540 Nebulizer (Compact Compressor Nebulizer) 1 Each Each, EACH , (DME) Prescribed by: APRIL FONSECA on 08/17/19 2212 Omeprazole (Omeprazole) 40 Mg Capsule.dr, 40 MG PO DAILY Prescribed by: APRIL FONSECA on 12/15/18 0551 Omeprazole (Omeprazole) 20 Mg Tablet.dr, 20 MG PO BID Prescribed by: SHEILA WALTERS on 04/06/19 1741 Pnv No.122/Iron/Folic Acid ( Multi Tablet) 1 Each Tablet, 1 EACH PO DAILY Prescribed by: BRETT HASSAN on 04/27/18 2151 Prednisone (Prednisone) 20 Mg Tab, 40 MG PO BID Prescribed by: APRIL FONSECA on 12/15/18 0535 Prednisone (Prednisone) 20 Mg Tab, 40 MG PO DAILY Prescribed by: ADIN MANN on 06/22/19 0022 Promethazine HCl/Codeine (Promethazine-Codeine Solution) 473 Ml Syrup, 5 ML PO Q6H PRN for cough/nausea Prescribed by: RODRÍGUEZ LYNCH on 10/15/20 1632 Review of Systems Review of Systems Constitutional: no symptoms reported; No diaphoresis EENTM: No Symptoms Reported Respiratory: Denies Cough, Denies Shortness of Air Cardiovascular: See HPI, Chest Pain; Denies Edema, Denies Lightheadedness, Denies Palpitations, Denies Syncope Gastrointestinal: See HPI, Abdominal Pain, Nausea; Denies Vomiting Genitourinary: No Symptoms Reported Musculoskeletal: no symptoms reported; No back pain Skin: no symptoms reported Psychiatric/Neurological: See HPI, Anxiety Endocrine: No Symptoms Reported Hematologic/Lymphatic: No Symptoms Reported Past Vlwnbyl-Vqflff-Lpfdtd Hx Patient Social History Tobacco Use?: No Use of E-Cig and/or Vaping dev: No Substance use?: Yes Substance type: Methamphetamine, Marijuana Additional substance use comme: UDS + FOR COCAINE, METH, THC, AND ADMITS TO ECSTASY USE Alcohol Use?: No Immunizations Up To Date Tetanus Booster (TDap): Unknown PED Vaccines UTD: No Seasonal Allergies Seasonal Allergies: Yes Past Medical History Surgery/Hospitalization HX: COPD, ASTHMA Surgeries: No Respiratory: Yes Asthma, COPD Currently Using CPAP: No Currently Using BIPAP: No Cardiac: Yes (REFUSES TO TAKE MEDICATION) Hypertension Neurological: No 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 Disorders: Yes 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, 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 Sexually Transmitted Disease: Yes (HERPES, 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 ) HIV/AIDS: No Genitourinary: Yes UTI-Chronic Gastrointestinal: Yes Gastroesophageal Reflux, Hemorrhoids Musculoskeletal: No Endocrine: Yes (MORBID OBESITY) HEENT: No Loss of Vision: Denies Hearing Impairment: Denies Cancer: No Psychosocial: Yes Depression Integumentary: Yes Herpes Blood Disorders: No Adverse Reaction/Blood Tranf: No Family Medical History Asthma 19 FATHER G8 BROTHER Completed stroke MATERNAL GRANDFATHER Diabetes mellitus 19 FATHER 19 MOTHER Drug abuse 19 FATHER G8 BROTHER G8 BROTHER G8 BROTHER FH: breast cancer MATERNAL GRANDMOTHE ( AGE 71) Headache disorder G8 SISTER Hypertension 19 MOTHER G8 BROTHER Psychosocial problem G8 BROTHER Seizure disorder MATERNAL GRANDMOTHE Physical Exam Vital Signs Vital Signs - First Documented 01/14/21 19:45 Temp 36.8 Pulse 110 Resp 20 B/P (MAP) 162/137 (145) Pulse Ox 97 O2 Delivery Room Air Capillary Refill : Less Than 3 Seconds Height, Weight, BMI Height: 5'11.00" Weight: 362lbs. 0.8oz. [id number]; 359.00 BMI Method:Stated General Appearance: Other (MORBIDLY OBESE. VERY DRAMATIC ON ARRIVAL--WAILING. SOBBING ( NO TEARS), GROWLING, GRUNTING AND BENDING/AT WAIST AND HOLDING CHEST AND "BEARING DOWN"; CONSTANTLY MOVING/SHAKING LEGS AND FEET BACK AND FORTH. 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 Norm as Tested, Other (BEHAVIOR NOTED ABOVE) Skin: Normal Color (PT IS BLACK), Warm/Dry; No Rash; Tattoos/Piercings Progress/Results/Core Measures Results/Orders Lab Results Laboratory Tests Test 01/14/21 19:50 01/14/21 20:19 01/14/21 20:40 01/14/21 22:50 Range/Units White Blood Count 12.1 H 4.3-11.0 10^3/uL Red Blood Count 5.14 H 3.80-5.11 10^6/uL Hemoglobin 13.5 11.5-16.0 g/dL Hematocrit 44 35-52 % Mean Corpuscular Volume 85 80-99 fL Mean Corpuscular Hemoglobin 26 25-34 pg Mean Corpuscular Hemoglobin Concent 31 L 32-36 g/dL Red Cell Distribution Width 13.4 10.0-14.5 % Platelet Count 350 130-400 10^3/uL Mean Platelet Volume 8.5 L 9.0-12.2 fL Immature Granulocyte % (Auto) 0 % Neutrophils (%) (Auto) 61 42-75 % Lymphocytes (%) (Auto) 25 12-44 % Monocytes (%) (Auto) 10 0-12 % Eosinophils (%) (Auto) 4 0-10 % Basophils (%) (Auto) 1 0-10 % Neutrophils # (Auto) 7.4 1.8-7.8 10^3/uL Lymphocytes # (Auto) 3.0 1.0-4.0 10^3/uL Monocytes # (Auto) 1.2 H 0.0-1.0 10^3/uL Eosinophils # (Auto) 0.5 H 0.0-0.3 10^3/uL Basophils # (Auto) 0.1 0.0-0.1 10^3/uL Immature Granulocyte # (Auto) 0.0 0.0-0.1 10^3/uL Prothrombin Time 14.1 12.2-14.7 SEC INR Comment 1.1 0.8-1.4 Activated Partial Thromboplast Time 33 24-35 SEC D-Dimer 0.20 0.00-0.49 UG/ML Sodium Level 141 135-145 MMOL/L Potassium Level 3.6 3.6-5.0 MMOL/L Chloride Level 106 98-107 MMOL/L Carbon Dioxide Level 24 21-32 MMOL/L Anion Gap 11 5-14 MMOL/L Blood Urea Nitrogen 8 7-18 MG/DL Creatinine 0.86 0.60-1.30 MG/DL Estimat Glomerular Filtration Rate 92 BUN/Creatinine Ratio 9 Glucose Level 113 H 70-105 MG/DL Calcium Level 8.9 8.5-10.1 MG/DL Corrected Calcium 9.1 8.5-10.1 MG/DL Magnesium Level 1.8 1.6-2.4 MG/DL Total Bilirubin 0.4 0.1-1.0 MG/DL Aspartate Amino Transf (AST/SGOT) 18 5-34 U/L Alanine Aminotransferase (ALT/SGPT) 22 0-55 U/L Alkaline Phosphatase 94 40-136 U/L Total Creatine Kinase 272 H 29-168 U/L Creatine Kinase MB 2.7 <6.6 NG/ML Myoglobin 85.0 10.0-92.0 NG/ML Troponin I < 0.028 < 0.028 <0.028 NG/ML B-Type Natriuretic Peptide < 10.0 <100.0 PG/ML Total Protein 6.9 6.4-8.2 GM/DL Albumin 3.7 3.2-4.5 GM/DL Amylase Level 49 25-125 U/L Lipase 33 8-78 U/L Serum Test, Qualitative NEGATIVE NEGATIVE Serum Alcohol < 10 <10 MG/DL SARS-CoV-2 RNA (RT-PCR) Not Detected Not Detecte Urine Color YELLOW Urine Clarity CLEAR Urine pH 7.0 5-9 Urine Specific [place] 1.020 1.016-1.022 Urine Protein NEGATIVE NEGATIVE Urine Glucose (UA) NEGATIVE NEGATIVE Urine Ketones NEGATIVE NEGATIVE Urine Nitrite NEGATIVE NEGATIVE Urine Bilirubin NEGATIVE NEGATIVE Urine Urobilinogen 1.0 < = 1.0 MG/DL Urine Leukocyte Esterase NEGATIVE NEGATIVE Urine RBC (Auto) 2+ H NEGATIVE Urine RBC 5-10 H /HPF Urine WBC 2-5 /HPF Urine Squamous Epithelial Cells 2-5 /HPF Urine Renal Epithelial Cells NONE /HPF Urine Crystals NONE /LPF Urine Bacteria NEGATIVE /HPF Urine Casts NONE /LPF Urine Mucus NEGATIVE /LPF Urine Culture Indicated NO Urine Opiates Screen NEGATIVE NEGATIVE Urine Oxycodone Screen NEGATIVE NEGATIVE Urine Methadone Screen NEGATIVE NEGATIVE Urine Propoxyphene Screen NEGATIVE NEGATIVE Urine Barbiturates Screen NEGATIVE NEGATIVE Ur Tricyclic Antidepressants Screen NEGATIVE NEGATIVE Urine Phencyclidine Screen NEGATIVE NEGATIVE Urine Amphetamines Screen NEGATIVE NEGATIVE Urine Methamphetamines Screen POSITIVE H NEGATIVE Urine Benzodiazepines Screen NEGATIVE NEGATIVE Urine Cocaine Screen POSITIVE H NEGATIVE Urine Cannabinoids Screen POSITIVE H NEGATIVE My Orders Orders - BRETT HASSAN DO Cbc With Automated Diff (01/14/21 19:42) Magnesium (01/14/21 19:42) Chest 1 View, Ap/Pa Only (01/14/21 19:42) Ekg Tracing (01/14/21 19:42) Comprehensive Metabolic Panel (01/14/21 19:42) Myoglobin Serum (01/14/21 19:42) Protime With Inr (01/14/21 19:42) Partial Thromboplastin Time (01/14/21 19:42) O2 (01/14/21 19:42) Monitor-Rhythm Ecg Trace Only (01/14/21 19:42) Ed Iv/Invasive Line Start (01/14/21 19:42) Creatine Kinase (01/14/21 19:42) Creatine Kinase Mb (01/14/21 19:42) Lipase (01/14/21 19:42) Amylase (01/14/21 19:42) BNP (01/14/21 19:42) Fibrin Degradation Products (01/14/21 19:42) Troponin I (01/14/21 19:42) Aspirin Chewable Tablet (Baby Aspirin Ch (01/14/21 19:45) Alcohol (01/14/21 19:42) Drug Screen Stat (Urine) (01/14/21 19:42) Hcg,Qualitative Serum (01/14/21 19:42) Ua Culture If Indicated (01/14/21 19:42) Covid 19 Inhouse Test (01/14/21 19:42) Pantoprazole Injection (Protonix Injecti (01/14/21 20:00) Ondansetron Injection (Zofran Injectio (01/14/21 20:00) Nitroglycerin Ointment (Nitrobid Ointme (01/14/21 20:00) Ketorolac Injection (Toradol Injection) (01/14/21 20:45) Ct Shawna Chest/Noang Abd-Pelv W (01/14/21 20:44) Iohexol Injection (Omnipaque 350 Mg/Ml 1 (01/14/21 21:30) Received Contrast (Hold Metformin- Contr (01/14/21 21:30) Ns (Ivpb) (Sodium Chloride 0.9% Ivpb Bag (01/14/21 21:30) Metoprolol Succinate (Xl) Tab (Toprol Xl (01/14/21 22:15) Hydralazine Injection (Apresoline Inject (01/14/21 22:15) Ekg Tracing (01/14/21 22:06) Troponin I (01/14/21 22:06) Hydralazine Injection (Apresoline Inject (01/14/21 23:30) Orphenadrine Inj (Ed Only) (Norflex Inje (01/14/21 23:45) Medications Given in ED Vital Signs/I&O 01/14/21 01/14/21 19:45 23:49 Temp 36.8 Pulse 110 98 Resp 20 18 B/P (MAP) 162/137 (145) 127/76 Pulse Ox 97 98 O2 Delivery Room Air Room Air Blood Pressure Mean: 145 Progress Progress Note : Progress Note GIVEN ASPIRIN, NITROPASTE, TORADOL, HYDRALAZINE AND TOPROL XL CHEST PAIN EASED AND BP AND HR DOWN AT TIME OF DISMISSAL PT HELD IN ER AND 3 HOUR REPEAT TROPONIN AND EKG ARE BOTH NORMAL/UNCHANGED ON DISCUSSING UDS RESULTS WITH PT, SHE NOW ADMITS "I POPPED AND ECSTASY PILL--MAYBE THAT MIGHT'A HAD SOME COCAINE OR METH IN IT" STRESSED IMPORTANCE OF AVOIDING USE OF ANY ILLICIT DRUGS, THESE CAN CAUSE OR WORSEN UNDERLYING BLOOD PRESSURE AND CARDIAC PROBLEMS ALSO STRESSED THE IMPORTANCE OF TAKING BLOOD PRESSURE MEDICATIONS AND FOLLOWING UP WITH HER DR FOR FURTHER CARE. Initial ECG Impression Date: Jan 14, 2021 Initial ECG Impression Time: 19:49 Initial ECG Rate: 98 Initial ECG Rhythm: Normal Sinus EKG : EKG Time: 22:56 Rate: 88 Rhythm: Normal Sinus ECG Comparisson: Unchanged Diagnostic Imaging Comments CXR--PER RADIOLOGIST REPORT AT 2038 FINDINGS: The lungs are clear without edema or pneumonia. No pleural effusion or pneumothorax. Heart size is normal. IMPRESSION: Clear lungs. CT CHEST ANGIOGRAM/ ABDOMEN-PELVIS--PER [facility] VIA FAX AT 0250 NO ACUTE FINDINGS Reviewed: Reviewed by Me Departure Impression Primary Impression: Chest pain Additional Impressions: Uncontrolled hypertension Illicit drug use Non-compliance Disposition: HOME, SELF-CARE Condition: Improved Departure-Patient Inst. Decision time for Depature: 23:45 Referrals: BRINA CM MD (PCP/Family) Primary Care Physician Patient Instructions: Heart Healthy Diet, DASH Diet, Drug Abuse and Drug Addiction (DC), Chest Pain (DC), High Blood Pressure (DC) Add. Discharge Instructions: NO DRUGS TAKE YOUR MEDICATION EXACTLY PRESCRIBED FOLLOW UP WITH DR. CM/[facility] IN 1-2 DAYS FOR FURTHER CARE RETURN TO ER IF SYMPTOMS WORSEN All discharge instructions reviewed with patient and/or family. Voiced understanding. Scripts Hydralazine HCl (Hydralazine HCl) 10 Mg Tablet 10 MG PO TID PRN for BLOOD PRESSURE, #15 TAB TAKE NEEDED THREE TIMES A DAY FOR SYSTOLIC BP > 160 OR DIASTOLIC BP > 100 Prov: BRETT HASSAN DO 01/14/21 BRETT HASSAN DO Jan 14, 2021 23:12
[2021-01-14] MEDS ORDERED: ORPHENADRINE 60 MG/2 ML (NORFLEX) AMP (ED ONLY) IV ONE (23:45)
[2021-01-14 23:49] VITALS: BP 127/76
== END 2021-01-14 23:50 | disposition home or self-care (01) ==
LOC: EDUNIT# 19:35 → ER 19:36
DX: R07.9 Chest pain, unspecified (principal); I10 Essential (primary) hypertension; F19.90 Other psychoactive substance use, unspecified, uncomplicated; R00.0 Tachycardia, unspecified; E66.01 Morbid (severe) obesity due to excess calories; J44.9 Chronic obstructive pulmonary disease, unspecified; K21.9 Gastro-esophageal reflux disease without esophagitis; Z91.19 Patient's noncompliance with other medical treatment and regimen; Z20.822 Contact with and (suspected) exposure to COVID-19; Z68.45 Body mass index [BMI] 70 or greater, adult; Z79.899 Other long term (current) drug therapy; Z79.52 Long term (current) use of systemic steroids
CPT/HCPCS: 36415; 71045; 71275; 74177; 80053; 80306; 80320; 81000; 82150; 82550; 82553; 83690; 83735; 83874; 83880; 84484; 84703; 85025; 85379; 85610; 85730; 87636; 93005; 93041

== ENCOUNTER 2021-04-02 10:04 | Emergency (ER) | payer MEDICAID ==
[~2021-04-02] VITALS: Ht 180 cm; Wt 184.0 kg
[~2021-04-02 10:04] MED LIST changes: +HYDR-3922 PO; +METO100T6 PO
--- NOTE | 2021-04-02 10:56 | ED Cough/URI ---
General Chief Complaint: Cough/Cold/Flu Symptoms Stated Complaint: N/V,DIZZINESS,SOB,COUGH,CONGESTION Nursing Triage Note: Pt to ED c/o SOB/cough as well as CP. States she was daniel t [facility] 5-6 days ago and prescribed a steroid. Was swabbed for COVID at that time which was negative. Source: patient Exam Limitations: no limitations History of Present Illness Date Seen by Provider: Apr 02, 2021 Time Seen by Provider: 10:39 Initial Comments Patient to ER by private conveyance chief complaint for the past week she has had body aches malaise and nonproductive cough. Last couple days of cough productive of some sputum and she has shortness of air and a headache. She took some Aleve yesterday evening and some Tylenol about 1:00 this morning. She is having a little nausea but no vomiting. She was swabbed earlier last week for COVID at the walk-in clinic and it was negative. She was seen because she has a history of asthma and felt like her breathing treatments were not helping her with her shortness of air. She was given a steroid and told she might have a pneumonia on a chest x-ray. She is not on antibiotics. She says she has had some subjective fevers and chills. No diarrhea. She does have urinary frequency. No history of autoimmune sarcoid lupus etc. Allergies and Home Medications Allergies Coded Allergies: No Known Drug Allergies (Unverified , 10/20/12) Patient Home Medication List Home Medication List Reviewed: Yes Albuterol (Proair Hfa) 8.5 Gm Hfa.aer.ad, 8.5 GM IH Q2, (Reported) Entered as Reported by: RAMU WALLIS on 10/20/122034 Albuterol Sulfate (Ventolin Hfa) 1 Puff Puff, 2 PUFF INH Q4H PRN for WHEEZING Prescribed by: APRIL FONSECA on 08/17/19 221 Azithromycin (Azithromycin) 250 Mg Tablet, 250 MG PO DAILY Prescribed by: ADIN MANN on 06/22/19 0022 Beclomethasone Dipropionate (Qvar) 8.7 Gm Aer.w.adap, 8.7 GM IH BID Prescribed by: BETTINA ZAVALA on 09/18/17 1540 Benzonatate (Tessalon Perles) 100 Mg Capsule, 100 MG PO Q6H PRN for COUGH Prescribed by: APRIL FONSECA on 04/02/21 1227 Hydralazine HCl (Hydralazine HCl) 10 Mg Tablet, 10 MG PO TID PRN for BLOOD PRESSURE Prescribed by: BRETT HASSAN on 01/14/21 2312 Ibuprofen (Ibu) 600 Mg Tablet, 600 MG PO Q6H Prescribed by: BRINA CM on 10/18/17 0948 Ibuprofen (Ibu) 600 Mg Tablet, 600 MG PO Q6H Prescribed by: TOÑO BONILLA on 12/12/18 0813 Ipratropium/Albuterol Sulfate (Iprat-Albut 0.5-3(2.5) mg/3 ml) 3 Ml Ampul.neb, 3 ML IH Q6H PRN for SHORTNESS OF BREATH Prescribed by: BETTINA ZAVALA on 09/18/17 1540 Nebulizer (Compact Compressor Nebulizer) 1 Each Each, EACH MC, (DME) Prescribed by: APRIL FONSECA on 08/17/19 2212 Omeprazole (Omeprazole) 40 Mg Capsule.dr, 40 MG PO DAILY Prescribed by: APRIL FONSECA on 12/15/18 0551 Omeprazole (Omeprazole) 20 Mg Tablet.dr, 20 MG PO BID Prescribed by: SHEILA WALTERS on 04/06/19 1741 Ondansetron (Ondansetron Odt) 4 Mg Tab.rapdis, 4-8 MG PO Q6H PRN for NAUSEA/VOMITING Prescribed by: APRIL FONSECA on 04/02/21 1227 Pnv No.122/Iron/Folic Acid ( Multi Tablet) 1 Each Tablet, 1 EACH PO DAILY Prescribed by: BRETT HASSAN on 04/27/18 2151 Prednisone (Prednisone) 20 Mg Tab, 40 MG PO BID Prescribed by: APRIL FONSECA on 12/15/18 0535 Prednisone (Prednisone) 20 Mg Tab, 40 MG PO DAILY Prescribed by: ADIN MANN on 06/22/19 0022 Promethazine HCl/Codeine (Promethazine-Codeine Solution) 473 Ml Syrup, 5 ML PO Q6H PRN for cough/nausea Prescribed by: RODRÍGUEZ LYNCH on 10/15/20 1632 Review of Systems Review of Systems Constitutional: No chills, No diaphoresis EENTM: No ear discharge, No ear pain Respiratory: cough, phlegm, short of breath, wheezing Cardiovascular: No chest pain, No palpitations Gastrointestinal: No abdominal pain, No constipation, No diarrhea; nausea; No vomiting Genitourinary: No discharge, No dysuria : No LMP: Mar 21, 2021 Musculoskeletal: No back pain, No joint pain All Other Systems Reviewed Negative Unless Noted: Yes Past Trolegu-Uunxky-Qvstdc Hx Patient Social History Tobacco Use?: Yes Tobacco type used: Cigarettes Substance use?: Yes Substance type: Marijuana Alcohol Use?: Yes Alcohol Frequency: Couple times a week Immunizations Up To Date Tetanus Booster (TDap): Unknown PED Vaccines UTD: No Influenza Vaccine Up-to-Date: No; Not Current Seasonal Allergies Seasonal Allergies: Yes Past Medical History Surgery/Hospitalization HX: COPD, asthma Surgeries: No Respiratory: Yes Asthma, COPD Currently Using CPAP: No Currently Using BIPAP: No Cardiac: Yes (REFUSES TO TAKE MEDICATION) Hypertension Neurological: No 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 Disorders: Yes 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, Ovarian Cyst [employer] History: IUD Sexually Transmitted Disease: Yes (HERPES, 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 ) HIV/AIDS: No Genitourinary: Yes UTI-Chronic Gastrointestinal: Yes Gastroesophageal Reflux, Hemorrhoids Musculoskeletal: No Endocrine: Yes (MORBID OBESITY) HEENT: No Loss of Vision: Denies Hearing Impairment: Denies Cancer: No Psychosocial: Yes Depression Integumentary: Yes Herpes Blood Disorders: No Adverse Reaction/Blood Tranf: No Family Medical History Asthma 19 FATHER G8 BROTHER Completed stroke MATERNAL GRANDFATHER Diabetes mellitus 19 FATHER 19 MOTHER Drug abuse 19 FATHER G8 BROTHER G8 BROTHER G8 BROTHER FH: breast cancer MATERNAL GRANDMOTHE ( AGE 72) Headache disorder G8 SISTER Hypertension 19 MOTHER G8 BROTHER Psychosocial problem G8 BROTHER Seizure disorder MATERNAL GRANDMOTHE Physical Exam Vital Signs - First Documented 04/02/21 10:20 Temp 37.0 Pulse 88 Resp 18 B/P (MAP) 149/105 (120) Pulse Ox 99 O2 Delivery Room Air Capillary Refill : Height: 5'11.00" Weight: 362lbs. 0.8oz. 164.647652ks; 56.00 BMI Method:Stated General Appearance: WD/WN, mild distress, obese Eyes: Bilateral Eye Normal Inspection, Bilateral Eye PERRL, Bilateral Eye EOMI, Bilateral Eye Abnormal EOM HEENT: PERRL/EOMI, normal ENT inspection, TMs normal; No pharynx normal (Dry oral mucosa) Neck: full range of motion, supple, normal inspection Respiratory: lungs clear, no respiratory distress (9 9% on room air nonlabored breathing without wheezes auscultated), no accessory muscle use, decreased breath sounds Cardiovascular: normal peripheral pulses, regular rate, rhythm Gastrointestinal: normal bowel sounds, non tender, soft Extremities: non-tender, normal inspection, normal capillary refill Neurologic/Psychiatric: alert, normal mood/affect, oriented x 3 Skin: normal color, warm/dry Progress/Results/Core Measures Suspected Sepsis SIRS Temperature: Pulse: 88 Respiratory Rate: 18 Laboratory Tests 04/02/21 10:59: White Blood Count 8.2 Blood Pressure 149 /105 Mean: 120 Laboratory Tests 04/02/21 10:59: Creatinine 0.86, Platelet Count 315, Total Bilirubin 0.4 Results/Orders Lab Results Laboratory Tests Test 04/02/21 10:24 04/02/21 10:59 04/02/21 11:12 Range/Units Influenza Type A (RT-PCR) Not Detected Not Detecte Influenza Type B (RT-PCR) Not Detected Not Detecte SARS-CoV-2 RNA (RT-PCR) Detected H Not Detecte White Blood Count 8.2 4.3-11.0 10^3/uL Red Blood Count 4.81 3.80-5.11 10^6/uL Hemoglobin 12.8 11.5-16.0 g/dL Hematocrit 42 35-52 % Mean Corpuscular Volume 87 80-99 fL Mean Corpuscular Hemoglobin 27 25-34 pg Mean Corpuscular Hemoglobin Concent 31 L 32-36 g/dL Red Cell Distribution Width 13.5 10.0-14.5 % Platelet Count 315 130-400 10^3/uL Mean Platelet Volume 8.7 L 9.0-12.2 fL Immature Granulocyte % (Auto) 0 % Neutrophils (%) (Auto) 67 42-75 % Lymphocytes (%) (Auto) 13 12-44 % Monocytes (%) (Auto) 17 H 0-12 % Eosinophils (%) (Auto) 3 0-10 % Basophils (%) (Auto) 1 0-10 % Neutrophils # (Auto) 5.5 1.8-7.8 10^3/uL Lymphocytes # (Auto) 1.1 1.0-4.0 10^3/uL Monocytes # (Auto) 1.4 H 0.0-1.0 10^3/uL Eosinophils # (Auto) 0.2 0.0-0.3 10^3/uL Basophils # (Auto) 0.1 0.0-0.1 10^3/uL Immature Granulocyte # (Auto) 0.0 0.0-0.1 10^3/uL Sodium Level 137 135-145 MMOL/L Potassium Level 3.7 3.6-5.0 MMOL/L Chloride Level 102 98-107 MMOL/L Carbon Dioxide Level 25 21-32 MMOL/L Anion Gap 10 5-14 MMOL/L Blood Urea Nitrogen 9 7-18 MG/DL Creatinine 0.86 0.60-1.30 MG/DL Estimat Glomerular Filtration Rate 91 BUN/Creatinine Ratio 10 Glucose Level 85 70-105 MG/DL Calcium Level 8.6 8.5-10.1 MG/DL Corrected Calcium 9.0 8.5-10.1 MG/DL Total Bilirubin 0.4 0.1-1.0 MG/DL Aspartate Amino Transf (AST/SGOT) 17 5-34 U/L Alanine Aminotransferase (ALT/SGPT) 28 0-55 U/L Alkaline Phosphatase 70 40-136 U/L C-Reactive Protein High Sensitivity 1.88 H 0.00-0.50 MG/DL Total Protein 6.2 L 6.4-8.2 GM/DL Albumin 3.5 3.2-4.5 GM/DL Urine Color YELLOW Urine Clarity CLEAR Urine pH 7.5 5-9 Urine Specific [place] 1.020 1.016-1.022 Urine Protein NEGATIVE NEGATIVE Urine Glucose (UA) NEGATIVE NEGATIVE Urine Ketones NEGATIVE NEGATIVE Urine Nitrite NEGATIVE NEGATIVE Urine Bilirubin NEGATIVE NEGATIVE Urine Urobilinogen 0.2 < = 1.0 MG/DL Urine Leukocyte Esterase NEGATIVE NEGATIVE Urine RBC (Auto) 1+ H NEGATIVE Urine RBC 5-10 H /HPF Urine WBC NONE /HPF Urine Squamous Epithelial Cells 2-5 /HPF Urine Crystals NONE /LPF Urine Bacteria NEGATIVE /HPF Urine Casts NONE /LPF Urine Mucus NEGATIVE /LPF Urine Culture Indicated NO My Orders Orders - APRIL FONSECA 19 Inhouse Test (04/02/21 10:41) Influenza A And B By Pcr (04/02/21 10:41) Chest 1 View, Ap/Pa Only (04/02/21 10:41) Cbc With Automated Diff (04/02/21 10:41) Comprehensive Metabolic Panel (04/02/21 10:41) Hs C Reactive Protein (04/02/21 10:41) Ua Culture If Indicated (04/02/21 10:42) Urine Bedside (04/02/21 10:42) Ketorolac Injection (Toradol Injection) (04/02/21 11:00) Ed Iv/Invasive Line Start (04/02/21 10:51) Lactated Ringers (Lr 1000 Ml Iv Solution (04/02/21 11:00) Ondansetron Injection (Zofran Injectio (04/02/21 11:00) Medications Given in ED Current Medications Medications Dose Ordered Sig/Violette Route Start Time Stop Time Status Last Admin Dose Admin Ketorolac Tromethamine 30 mg ONCE ONCE IVP 04/02/21 11:00 04/02/21 11:01 DC 04/02/21 11:18 30 MG Lactated Ringer's 1,000 ml @ 0 mls/hr Q0M ONCE IV 04/02/21 11:00 04/02/21 11:01 DC 04/02/21 11:18 1,000 MLS/HR Ondansetron HCl 8 mg ONCE ONCE IVP 04/02/21 11:00 04/02/21 11:01 DC 04/02/21 11:18 8 MG Vital Signs/I&O 04/02/21 10:20 Temp 37.0 Pulse 88 Resp 18 B/P (MAP) 149/105 (120) Pulse Ox 99 O2 Delivery Room Air Capillary Refill : Blood Pressure Mean: 120 Progress Note #1: Time: 10:55 Progress Note Patient has what sounds like a viral syndrome. Pneumonia is also in the differential. We will get a chest x-ray labs, COVID, influenza and give her a liter of fluids and some Toradol. Progress Note #2: Time: 12:23 Progress Note Discussed the risks, benefits and alternatives to monoclonal antibody treatment. Discussed that it is authorized for use under emergency use authorization by the FDA. Discussed that there is limited availability and that we will put her in the queue given her history of obesity, asthma and we will try and get her scheduled if possible. Patient is okay with doing this procedure. We provided her with a handout on sotrovimab. ECG Initial ECG Impression Date: Apr 02, 2021 Initial ECG Impression Time: 10:27 Initial ECG Rate: 82 Initial ECG Rhythm: Normal Sinus Initial ECG Intervals: Normal Initial ECG Impression: Normal Comment Normal sinus rhythm without clinically relevant ST changes. Diagnostic Imaging Diagonstic Imaging: Xray Plain Films/CT/US/NM/MRI: chest Comments [facility], [place] NAME: JUDY DEVLIN [facility] REC#: [id number] PT STATUS: REG ER : 1985 PHYSICIAN: APRIL FONSECA MD ADMIT DATE: 04/02/21/ER Draft Date of Exam:04/02/21 CHEST 1 VIEW, AP/PA ONLY PATIENT HISTORY: cough soa. TECHNIQUE: Single frontal view of the chest. COMPARISON: 01/14/2021 FINDINGS: Overall image appears somewhat underpenetrated. The lung volumes are normal. No focal consolidation is seen. No large pleural effusion or pneumothorax is seen. The cardiomediastinal silhouette is normal in size and contour. No acute osseous abnormality is seen. IMPRESSION: No acute pulmonary abnormality seen. Dictated on workstation # [id number] Dict: 04/02/21 1148 Trans: 04/02/21 1149 CV [id number] Interpreted by: JEFRY CORDERO MD Electronically signed by: Reviewed: Reviewed by Me Departure Impression Primary Impression: COVID-19 Disposition: 01 HOME, SELF-CARE Condition: Stable Departure-Patient Inst. Decision time for Depature: 12:24 Referrals: BRINA CM MD (PCP/Family) Primary Care Physician Patient Instructions: COVID-19 (DC), Sotrovimab FDA Fact Sheet Add. Discharge Instructions: If we have availability of monoclonal antibodies then someone from the hospital will call you to set up infusion early next week. Drink plenty of fluids. Humidifiers and vapor rubs may be helpful. Tessalon Perles 1 capsule every 6 hours as necessary for cough. Tylenol 1000 mg every 8 hours necessary for body aches or fever. Ibuprofen 800 mg every 8 hours as necessary for body aches or fever. Zofran 1 tablet every 6 hours under the tongue as necessary for nausea and or vomiting. All discharge instructions reviewed with patient and/or family. Voiced understanding. Scripts Ipratropium/Albuterol Sulfate (Iprat-Albut 0.5-3(2.5) mg/3 ml) 3 Ml Ampul.neb 3 ML IH Q4H PRN for SHORTNESS OF BREATH, #60 EACH 0 Refills Prov: APRIL FONSECA 04/02/21 Benzonatate (TESSALON PERLES) 100 Mg Capsule 100 MG PO Q6H PRN for COUGH, #20 CAP 0 Refills Prov: APRIL FONSECA 04/02/21 Ondansetron (Ondansetron Odt) 4 Mg Tab.rapdis 4-8 MG PO Q6H PRN for NAUSEA/VOMITING, #12 TAB 0 Refills Prov: APRIL FONSECA 04/02/21 Work/School Note: Work Release Form Date Seen in the Emergency Department: Apr 02, 2021 Return to Work: Apr 07, 2021 Restrictions: Return-No Fever (24hrs) Other Restrictions Listed Below: Off isolation if the final 24 hours symptoms free. APRIL FONSECA Apr 02, 2021 10:56
[2021-04-02] MEDS ORDERED: LACTATED RINGERS 1,000 ML IV ONE (11:00)
[2021-04-02] MEDS ORDERED: ONDANSETRON 4 MG/2 ML (SDV) Z0FRAN IVP ONE (11:00)
[2021-04-02] MEDS ORDERED: KETOROLAC 30 MG/ML VIAL IVP ONE (11:00)
[2021-04-02 11:13] LABS: BASOPHILS # (AUTO) 0.1 10^3/uL (0.0-0.1); BASOPHILS % (AUTO) 1 % (0-10); EOSINOPHILS # (AUTO) 0.2 10^3/uL (0.0-0.3); EOSINOPHILS % (AUTO) 3 % (0-10); HEMATOCRIT 42 % (35-52); HEMOGLOBIN 12.8 g/dL (11.5-16.0); LYMPHOCYTES # (AUTO) 1.1 10^3/uL (1.0-4.0); LYMPHOCYTES % (AUTO) 13 % (12-44); MEAN CORPUSCULAR HEMOGLOBIN 27 pg (25-34); MEAN CORPUSCULAR HGB CONC 31 g/dL (32-36); MEAN CORPUSCULAR VOLUME 87 fL (80-99); MEAN PLATELET VOLUME 8.7 fL (9.0-12.2); MONOCYTES # (AUTO) 1.4 10^3/uL (0.0-1.0); MONOCYTES % (AUTO) 17 % (0-12); NEUTROPHILS # (AUTO) 5.5 10^3/uL (1.8-7.8); NEUTROPHILS % (AUTO) 67 % (42-75); PLATELET COUNT 315 10^3/uL (130-400); WHITE BLOOD COUNT 8.2 10^3/uL (4.3-11.0)
[2021-04-02 11:16] LABS: ALBUMIN 3.5 GM/DL (3.2-4.5); POTASSIUM 3.7 MMOL/L (3.6-5.0)
[2021-04-02 11:17] LABS: CALCIUM 8.6 MG/DL (8.5-10.1)
[2021-04-02 11:19] LABS: TOTAL PROTEIN 6.2 GM/DL (6.4-8.2)
[2021-04-02 11:20] LABS: BILIRUBIN,TOTAL 0.4 MG/DL (0.1-1.0)
[2021-04-02 11:22] LABS: CREATININE SERUM 0.86 MG/DL (0.60-1.30)
[2021-04-02 11:23] LABS: BILIRUBIN,URINE NEGATIVE (NEGATIVE); CLARITY,URINE CLEAR; COLOR,URINE YELLOW; GLUCOSE, URINE (UA) NEGATIVE (NEGATIVE); KETONES,URINE NEGATIVE (NEGATIVE); LEUKOCYTE ESTERASE ,URINE NEGATIVE (NEGATIVE); NITRITE,URINE NEGATIVE (NEGATIVE); PH,URINE 7.5 (5-9); PROTEIN,URINE NEGATIVE (NEGATIVE)
[2021-04-02 11:29] LABS: BACTERIA,URINE NEGATIVE /HPF
--- NOTE | 2021-04-02 11:50 | Diagnostic Imaging Report ---
PATIENT HISTORY: cough soa. TECHNIQUE: Single frontal view of the chest. COMPARISON: 01/14/2021 FINDINGS: Overall image appears somewhat underpenetrated. The lung volumes are normal. No focal consolidation is seen. No large pleural effusion or pneumothorax is seen. The cardiomediastinal silhouette is normal in size and contour. No acute osseous abnormality is seen. IMPRESSION: No acute pulmonary abnormality seen. Dictated by: Dictated on workstation # [id number]
[2021-04-02] MEDS ORDERED: ONDA4TAB11 PO (12:27)
[2021-04-02] MEDS ORDERED: BENZ100C18 PO (12:27)
[2021-04-02] MEDS ORDERED: IPRA3AMP31 IH (12:38)
[2021-04-02 12:44] VITALS: BP 137/75
== END 2021-04-02 12:40 | disposition home or self-care (01) ==
LOC: EDUNIT# 10:04 → ER 10:06
DX: U07.1 COVID-19 (principal); J44.9 Chronic obstructive pulmonary disease, unspecified; I10 Essential (primary) hypertension; K21.9 Gastro-esophageal reflux disease without esophagitis; E66.01 Morbid (severe) obesity due to excess calories; Z72.0 Tobacco use; Z68.43 Body mass index [BMI] 50.0-59.9, adult
CPT/HCPCS: 36415; 71045; 80053; 81000; 84703; 85025; 86141; 87636; 93005; 96361; 96374; 96375

== ENCOUNTER 2021-04-04 09:17 | Outpatient (CLI) | payer MEDICAID ==
[~2021-04-04] VITALS: Ht 180.3 cm; Wt 184.0 kg
[~2021-04-04 09:17] MED LIST changes: +BENZ100C18 PO; +ONDA4TAB11 PO
[2021-04-04 09:29] VITALS: BP 140/89
[2021-04-04] MEDS ORDERED: ONDANSETRON 4 MG/2 ML (SDV) Z0FRAN IV PRN (09:45)
[2021-04-04] MEDS ORDERED: SOTROVIMAB 500 MG/NS 50 ML IVPB IV ONE ×2 (09:45)
[2021-04-04] MEDS ORDERED: EPINEPHrine INJECTION 1 MG/ML AMP IM PRN (09:45)
[2021-04-04] MEDS ORDERED: diphenhydrAMINE 50 MG/ML INJ (BENADRYL) IV PRN (09:45)
[2021-04-04] MEDS ORDERED: ACETAMINOPHEN 500 MG TAB (TYLENOL) PO PRN (09:45)
[2021-04-04 10:37] VITALS: BP 124/83
== END 2021-04-04 10:50 ==
LOC: INFUSION 09:17
PROVIDERS: ATTEND Emergency Medicine
DX: U07.1 COVID-19 (principal)

== ENCOUNTER 2021-06-14 23:48 | Emergency (ER) | payer MEDICAID ==
[~2021-06-14] VITALS: Ht 183 cm; Wt 181.0 kg
[2021-06-15] VITALS: BP 154/105
[2021-06-15 00:28] LABS: BASOPHILS # (AUTO) 0.1 10^3/uL (0.0-0.1); BASOPHILS % (AUTO) 1 % (0-10); EOSINOPHILS # (AUTO) 0.2 10^3/uL (0.0-0.3); EOSINOPHILS % (AUTO) 2 % (0-10); HEMATOCRIT 43 % (35-52); LYMPHOCYTES % (AUTO) 21 % (12-44); MEAN CORPUSCULAR HEMOGLOBIN 26 pg (25-34); MEAN CORPUSCULAR HGB CONC 30 g/dL (32-36); MEAN CORPUSCULAR VOLUME 86 fL (80-99); MEAN PLATELET VOLUME 8.8 fL (9.0-12.2); MONOCYTES # (AUTO) 0.6 10^3/uL (0.0-1.0); MONOCYTES % (AUTO) 7 % (0-12); NEUTROPHILS # (AUTO) 6.4 10^3/uL (1.8-7.8); NEUTROPHILS % (AUTO) 69 % (42-75); PLATELET COUNT 338 10^3/uL (130-400); WHITE BLOOD COUNT 9.3 10^3/uL (4.3-11.0)
[2021-06-15 00:33] LABS: ALBUMIN 3.6 GM/DL (3.2-4.5); CHLORIDE 102 MMOL/L (98-107); POTASSIUM 3.4 MMOL/L (3.6-5.0); SODIUM 139 MMOL/L (135-145)
[2021-06-15 00:34] LABS: AMYLASE 71 U/L (25-125); CALCIUM 9.1 MG/DL (8.5-10.1)
[2021-06-15 00:35] LABS: GLUCOSE 114 MG/DL (70-105)
[2021-06-15 00:36] LABS: CARBON DIOXIDE 23 MMOL/L (21-32)
[2021-06-15 00:37] LABS: BILIRUBIN,TOTAL 0.4 MG/DL (0.1-1.0)
[2021-06-15 00:39] LABS: ALKALINE PHOSPHATASE 94 U/L (40-136); CREATININE SERUM 0.78 MG/DL (0.60-1.30); GFR ESTIMATED 102
[2021-06-15 00:40] LABS: BUN/CREATININE RATIO 10
[2021-06-15 00:42] LABS: ALANINE AMINOTRANSFERASE 27 U/L (0-55); MAGNESIUM 1.9 MG/DL (1.6-2.4)
[2021-06-15 00:43] LABS: CREATINE KINASE 107 U/L (29-168); LIPASE 36 U/L (8-78)
[2021-06-15 00:49] LABS: CREATINE KINASE MB 1.6 NG/ML (<6.6)
[2021-06-15 01:07] LABS: BILIRUBIN,URINE NEGATIVE (NEGATIVE); CLARITY,URINE CLEAR; COLOR,URINE YELLOW; GLUCOSE, URINE (UA) NEGATIVE (NEGATIVE); KETONES,URINE NEGATIVE (NEGATIVE); LEUKOCYTE ESTERASE ,URINE NEGATIVE (NEGATIVE); NITRITE,URINE NEGATIVE (NEGATIVE); PROTEIN,URINE NEGATIVE (NEGATIVE)
--- NOTE | 2021-06-15 01:13 | ED Cardiac General ---
History of Present Illness General Chief Complaint: Chest Pain Stated Complaint: CP Nursing Triage Note: Pt arrives per POV w/ c/o chest pain. Pt relates that pain started earlier after doing meth and cocaine. Pt ambulated to room, attached to residential monitor, and EKG done. Source: patient History of Present Illness Date Seen by Provider: Jun 15, 2021 Time Seen by Provider: 00:11 Initial Comments PT ARRIVES VIA POV C/O CHEST PAIN THAT BEGAN AROUND 10 AM TODAY WHILE SHE WAS GETTING DRESSED PAIN IS IN LEFT UPPER CHEST NO RADIATION OF PAIN PAIN IS WORSE WITH PUSHING ON IT AND WITH MOVING AND RAISING HER LEFT ARM STATES PAIN WAS MILD ALL DAY, THEN GOT WORSE THIS EVENING AROUND 1700, AFTER SHE SMOKED METH AND SNORTED COCAINE. SHE ALSO SMOKED MARIJUANA. STATES PAIN IS ALSO WORSE WHEN SHE LAYS DOWN, AND IT FEELS LIKE SHE NEEDS TO BURP NO SHORTNESS OF BREATH NO FEVER HAS HAD SLIGHT COUGH THIS EVENING NO PALPITATIONS NO DIZZINESS NO SYNCOPE NO NAUSEA/VOMITING NO SWELLING IN LEGS/FEET OR PAIN IN CALVES HAS NOT TAKEN ANYTHING FOR PAIN WAS AT [facility] TODAY WITH HER CHILDREN, BUT DID NOT ATTEMPT TO BE SEEN THERE HERSELF FOR THIS PROBLEM DENIES HISTORY OF SIMILAR. PT HAS HISTORY OF ASTHMA/COPD, BUT STATES THIS IS NOT THE SAME. PT HAS HTN, AND HAS BEEN PRESCRIBED MEDICATION, BUT SHE REFUSES TO TAKE IT. 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. DR. CM, BUT STATES SHE USUALLY JUST GOES TO THE WALK IN CLINIC, AND DOES NOT MAKE ROUTINE APPOINTMENTS FOR MEDICAL CARE. Allergies and Home Medications Allergies Coded Allergies: No Known Drug Allergies (Unverified , 10/20/12) Patient Home Medication List Home Medication List Reviewed: Yes Albuterol (Proair Hfa) 8.5 Gm Hfa.aer.ad, 8.5 GM IH Q2, (Reported) Entered as Reported by: RAMU WALLIS on 10/20/122034 Albuterol Sulfate (Ventolin Hfa) 1 Puff Puff, 2 PUFF INH Q4H PRN for WHEEZING Prescribed by: APRIL FONSECA on 08/17/192211 Azithromycin (Azithromycin) 250 Mg Tablet, 250 MG PO DAILY Prescribed by: ADIN MANN on 06/22/19 0022 Beclomethasone Dipropionate (Qvar) 8.7 Gm Aer.w.adap, 8.7 GM IH BID Prescribed by: BETTINA ZAVALA on 09/18/17 1540 Benzonatate (Tessalon Perles) 100 Mg Capsule, 100 MG PO Q6H PRN for COUGH Prescribed by: APRIL FONSECA on 04/02/21 1227 Hydralazine HCl (Hydralazine HCl) 10 Mg Tablet, 10 MG PO TID PRN for BLOOD PRESSURE Prescribed by: BRETT HASSAN on 01/14/21 2312 Ibuprofen (Ibu) 600 Mg Tablet, 600 MG PO Q6H Prescribed by: BRINA CM on 10/18/17 0948 Ibuprofen (Ibu) 600 Mg Tablet, 600 MG PO Q6H Prescribed by: TOÑO BONILLA on 12/12/18 0813 Ipratropium/Albuterol Sulfate (Iprat-Albut 0.5-3(2.5) mg/3 ml) 3 Ml Ampul.neb, 3 ML IH Q6H PRN for SHORTNESS OF BREATH Prescribed by: BETTINA ZAVALA on 09/18/17 1540 Ipratropium/Albuterol Sulfate (Iprat-Albut 0.5-3(2.5) mg/3 ml) 3 Ml Ampul.neb, 3 ML IH Q4H PRN for SHORTNESS OF BREATH Prescribed by: APRIL FONSECA on 04/02/21 1238 Naproxen (Naproxen) 500 Mg Tablet.dr, 500 MG PO BID Prescribed by: BRETT HASSAN on 06/15/21 0121 Nebulizer (Compact Compressor Nebulizer) 1 Each Each, EACH , (DME) Prescribed by: APRIL FONSECA on 08/17/19 2212 Omeprazole (Omeprazole) 40 Mg Capsule.dr, 40 MG PO DAILY Prescribed by: APRIL FONSECA on 12/15/18 0551 Omeprazole (Omeprazole) 20 Mg Tablet.dr, 20 MG PO BID Prescribed by: SHEILA WALTERS on 04/06/19 1741 Ondansetron (Ondansetron Odt) 4 Mg Tab.rapdis, 4-8 MG PO Q6H PRN for TIN SEA/VOMITING Prescribed by: APRIL FONSECA on 04/02/21 1227 Pantoprazole Sodium (Protonix) 40 Mg Tablet.dr, 40 MG PO DAILY Prescribed by: BRETT HASSAN on 06/15/21 0121 Pnv No.122/Iron/Folic Acid ( Multi Tablet) 1 Each Tablet, 1 EACH PO DAILY Prescribed by: BRETT HASSAN on 04/27/18 2151 Prednisone (Prednisone) 20 Mg Tab, 40 MG PO BID Prescribed by: APRIL FONSECA on 12/15/18 0535 Prednisone (Prednisone) 20 Mg Tab, 40 MG PO DAILY Prescribed by: ADIN MANN on 06/22/19 0022 Promethazine HCl/Codeine (Promethazine-Codeine Solution) 473 Ml Syrup, 5 ML PO Q6H PRN for cough/nausea Prescribed by: RODRÍGUEZ LYNCH on 10/15/20 1632 Review of Systems Review of Systems Constitutional: no symptoms reported EENTM: No Symptoms Reported Respiratory: See HPI Cardiovascular: See HPI Gastrointestinal: No Symptoms Reported Genitourinary: No Symptoms Reported Musculoskeletal: see HPI Skin: no symptoms reported Psychiatric/Neurological: No Symptoms Reported Endocrine: No Symptoms Reported Hematologic/Lymphatic: No Symptoms Reported Past Htjymak-Agviaw-Tttchq Hx Patient Social History Tobacco Use?: Yes Tobacco type used: Cigarettes Smoking Status: Current Everyday Smoker Use of E-Cig and/or Vaping dev: No Substance use?: Yes Substance type: Methamphetamine, Marijuana, Other Additional substance use comme: Cocaine and meth use tonight. Marijuana couple times a week. Substance frequency: Couple times a week Alcohol Use?: Yes Alcohol Frequency: Couple times a week Pt feels they are or have been: No Immunizations Up To Date Tetanus Booster (TDap): Unknown PED Vaccines UTD: No First/Initial COVID19 Vaccinat: Unvaccinated Seasonal Allergies Seasonal Allergies: Yes Past Medical History Surgery/Hospitalization HX: COPD, asthma Surgeries: No Respiratory: Yes (COVID-19 04/02/21--NO TREATMENT) Asthma, COPD Currently Using CPAP: No Currently Using BIPAP: No Cardiac: Yes (REFUSES TO TAKE MEDICATION) Hypertension Neurological: No 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 Disorders: Yes 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, Ovarian Cyst [employer] History: IUD Sexually Transmitted Disease: Yes (HERPES, 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 ) HIV/AIDS: No Genitourinary: Yes UTI-Chronic Gastrointestinal: Yes Gastroesophageal Reflux, Hemorrhoids Musculoskeletal: No Endocrine: Yes (MORBID OBESITY) HEENT: No Loss of Vision: Denies Hearing Impairment: Denies Cancer: No Psychosocial: Yes (POLYSUBSTANCE ABUSE) Depression Integumentary: Yes Herpes Blood Disorders: No Adverse Reaction/Blood Tranf: No Family Medical History Asthma 19 FATHER G8 BROTHER Completed stroke MATERNAL GRANDFATHER Diabetes mellitus 19 FATHER 19 MOTHER Drug abuse 19 FATHER G8 BROTHER G8 BROTHER G8 BROTHER FH: breast cancer MATERNAL GRANDMOTHE ( AGE 71) Headache disorder G8 SISTER Hypertension 19 MOTHER G8 BROTHER Psychosocial problem G8 BROTHER Seizure disorder MATERNAL GRANDMOTHE SOCIAL HISTORY: -SMOKES 1 PPD -ETOH--"COUPLE OF TIMES A WEEK" -DRUGS--SNORTS COCAINE, SMOKES METH AND MARIJUANA. ALSO HX OF ECSTASY USE Physical Exam Vital Signs Vital Signs - First Documented 06/15/21 00:00 Temp 36.0 Pulse 116 Resp 24 B/P (MAP) 154/105 (121) Pulse Ox 99 O2 Delivery Room Air Capillary Refill : Less Than 3 Seconds Height, Weight, BMI Height: 5'11.00" Weight: 362lbs. 0.8oz. [id number]; 54.00 BMI Method:Stated General Appearance: No Apparent Distress, WD/WN, Obese (MORBIDLY OBESE. DOES NOT APPEAR ILL OR TO BE IN ANY DISCOMFORT OR DISTRESS. WALKS AND MOVES WITHOUT DIFFICULTY. TEXTING/PLAYING ON PHONE THROUGHOUT ER STAY. DURING EXAM, PT IS CONSTANTLY PUSHING ON HER LEFT UPPER CHEST. 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 Skin: Normal Color (PT IS BLACK), Warm/Dry, Tattoos/Piercings (EXTENSIVE TATTOOS) Progress/Results/Core Measures Results/Orders Lab Results Laboratory Tests Test 06/15/21 00:10 06/15/21 00:55 Range/Units White Blood Count 9.3 4.3-11.0 10^3/uL Red Blood Count 4.94 3.80-5.11 10^6/uL Hemoglobin 13.0 11.5-16.0 g/dL Hematocrit 43 35-52 % Mean Corpuscular Volume 86 80-99 fL Mean Corpuscular Hemoglobin 26 25-34 pg Mean Corpuscular Hemoglobin Concent 30 L 32-36 g/dL Red Cell Distribution Width 14.0 10.0-14.5 % Platelet Count 338 130-400 10^3/uL Mean Platelet Volume 8.8 L 9.0-12.2 fL Immature Granulocyte % (Auto) 0 % Neutrophils (%) (Auto) 69 42-75 % Lymphocytes (%) (Auto) 21 12-44 % Monocytes (%) (Auto) 7 0-12 % Eosinophils (%) (Auto) 2 0-10 % Basophils (%) (Auto) 1 0-10 % Neutrophils # (Auto) 6.4 1.8-7.8 10^3/uL Lymphocytes # (Auto) 2.0 1.0-4.0 10^3/uL Monocytes # (Auto) 0.6 0.0-1.0 10^3/uL Eosinophils # (Auto) 0.2 0.0-0.3 10^3/uL Basophils # (Auto) 0.1 0.0-0.1 10^3/uL Immature Granulocyte # (Auto) 0.0 0.0-0.1 10^3/uL Sodium Level 139 135-145 MMOL/L Potassium Level 3.4 L 3.6-5.0 MMOL/L Chloride Level 102 98-107 MMOL/L Carbon Dioxide Level 23 21-32 MMOL/L Anion Gap 14 5-14 MMOL/L Blood Urea Nitrogen 8 7-18 MG/DL Creatinine 0.78 0.60-1.30 MG/DL Estimat Glomerular Filtration Rate 102 BUN/Creatinine Ratio 10 Glucose Level 114 H 70-105 MG/DL Calcium Level 9.1 8.5-10.1 MG/DL Corrected Calcium 9.4 8.5-10.1 MG/DL Magnesium Level 1.9 1.6-2.4 MG/DL Total Bilirubin 0.4 0.1-1.0 MG/DL Aspartate Amino Transf (AST/SGOT) 21 5-34 U/L Alanine Aminotransferase (ALT/SGPT) 27 0-55 U/L Alkaline Phosphatase 94 40-136 U/L Total Creatine Kinase 107 29-168 U/L Creatine Kinase MB 1.6 <6.6 NG/ML Troponin I < 0.028 <0.028 NG/ML B-Type Natriuretic Peptide < 10.0 <100.0 PG/ML Total Protein 7.0 6.4-8.2 GM/DL Albumin 3.6 3.2-4.5 GM/DL Amylase Level 71 25-125 U/L Lipase 36 8-78 U/L Serum Alcohol < 10 <10 MG/DL Influenza Type A (RT-PCR) Not Detected Not Detecte Influenza Type B (RT-PCR) Not Detected Not Detecte SARS-CoV-2 RNA (RT-PCR) Not Detected Not Detecte Urine Color YELLOW Urine Clarity CLEAR Urine pH 7.0 5-9 Urine Specific [place] 1.010 L 1.016-1.022 Urine Protein NEGATIVE NEGATIVE Urine Glucose (UA) NEGATIVE NEGATIVE Urine Ketones NEGATIVE NEGATIVE Urine Nitrite NEGATIVE NEGATIVE Urine Bilirubin NEGATIVE NEGATIVE Urine Urobilinogen 0.2 < = 1.0 MG/DL Urine Leukocyte Esterase NEGATIVE NEGATIVE Urine RBC (Auto) 2+ H NEGATIVE Urine RBC 0-2 /HPF Urine WBC NONE /HPF Urine Squamous Epithelial Cells 0-2 /HPF Urine Crystals NONE /LPF Urine Bacteria NEGATIVE /HPF Urine Casts NONE /LPF Urine Mucus NEGATIVE /LPF Urine Culture Indicated NO Urine Opiates Screen NEGATIVE NEGATIVE Urine Oxycodone Screen NEGATIVE NEGATIVE Urine Methadone Screen NEGATIVE NEGATIVE Urine Propoxyphene Screen NEGATIVE NEGATIVE Urine Barbiturates Screen NEGATIVE NEGATIVE Ur Tricyclic Antidepressants Screen NEGATIVE NEGATIVE Urine Phencyclidine Screen NEGATIVE NEGATIVE Urine Amphetamines Screen NEGATIVE NEGATIVE Urine Methamphetamines Screen POSITIVE H NEGATIVE Urine Benzodiazepines Screen NEGATIVE NEGATIVE Urine Cocaine Screen POSITIVE H NEGATIVE Urine Cannabinoids Screen POSITIVE H NEGATIVE My Orders Orders - BRETT HASSAN DO Ed Iv/Invasive Line Start (06/15/21 00:14) Urine Bedside (06/15/21 00:14) Ekg Tracing (06/15/21:14) Monitor-Rhythm Ecg Trace Only (06/15/21 00:14) Alcohol (06/15/21 00:14) Amylase (06/15/21 00:14) Bnp Grainger (06/15/21 00:14) Cbc With Automated Diff (06/15/21:14) Comprehensive Metabolic Panel (06/15/21 00:14) Creatine Kinase (06/15/21 00:14) Creatine Kinase Mb (06/15/21 00:14) Drug Screen Stat (Urine) (06/15/21 00:14) Lipase (06/15/21 00:14) Magnesium (06/15/21 00:14) Ua Culture If Indicated (06/15/21 00:14) Troponin I Grainger (06/15/21 00:14) Chest 1 View, Ap/Pa Only (06/15/21 00:14) Covid 19 Inhouse Test (06/15/21 00:14) Influenza A And B By Pcr (06/15/21 00:14) Isolation Central Supply Req (06/15/21 00:14) Pantoprazole Injection (Protonix Injecti (06/15/21 01:30) Ketorolac Injection (Toradol Injection) (06/15/21 01:30) Medications Given in ED Current Medications Medications Dose Ordered Sig/Violette Route Start Time Stop Time Status Last Admin Dose Admin Ketorolac Tromethamine 30 mg ONCE ONCE IVP 06/15/21 01:30 06/15/21 01:31 DC 06/15/21 01:27 30 MG Pantoprazole 40 mg ONCE ONCE IV 06/15/21 01:30 06/15/21 01:31 DC 06/15/21 01:27 40 MG Vital Signs/I&O 06/15/21 00:00 Temp 36.0 Pulse 116 Resp 24 B/P (MAP) 154/105 (121) Pulse Ox 99 O2 Delivery Room Air Blood Pressure Mean: 121 Progress Progress Note : Progress Note UNEVENTFUL ER STAY NO COUGH NO DYSPNEA NO HYPOXIA NO FEVER STRESSED IMPORTANCE OF FOLLOW UP WITH [facility] FOR FURTHER CARE ALSO STRESSED THE IMPORTANCE OF ABSTAINING FROM DRUGS THEY CAN CAUSE OR WORSEN UNDERLYING BLOOD PRESSURE OR CARDIAC PROBLEMS. Initial ECG Impression Date: Jun 15, 2021 Initial ECG Impression Time: 00:05 Initial ECG Rate: 114 Initial ECG Rhythm: S.Tach Diagnostic Imaging Comments CXR--NO ACUTE PROCESS, PENDING RADIOLOGIST REVIEW Reviewed: Reviewed by Me Departure Impression Primary Impression: Illicit drug use Additional Impressions: Chest pain Chest wall pain HTN (hypertension) HX OF NONCOMPLIANCE COCAINE, METHAMPHETAMINE AND THC USE Disposition: 01 HOME, SELF-CARE Condition: Stable Departure-Patient Inst. Decision time for Depature: 01:20 Referrals: BRINA CM MD (PCP/Family) Primary Care Physician Patient Instructions: Chest Pain (DC), Drug Abuse and Drug Addiction (DC) Add. Discharge Instructions: NO DRUGS !!! FOLLOW UP WITH [facility] TOMORROW FOR FURTHER CARE, RETURN TO ER IF WORSE All discharge instructions reviewed with patient and/or family. Voiced understanding. Scripts Naproxen (Naproxen) 500 Mg Tablet. 500 MG PO BID, #20 TAB Prov: BRETT HASSAN DO 06/15/21 Pantoprazole Sodium (Protonix) 40 Mg Tablet. 40 MG PO DAILY, #15 TAB Prov: BRETT HASSAN DO 06/15/21 BRETT HASSAN DO Jun 15, 2021 01:13
[2021-06-15 01:15] LABS: BACTERIA,URINE NEGATIVE /HPF; RBC,URINE 0-2 /HPF; SQUAMOUS EPITHELIAL CELL,UR 0-2 /HPF
[2021-06-15 01:20] LABS: AMPHETAMINE SCREEN, URINE NEGATIVE (NEGATIVE); BARBITURATE SCREEN URINE NEGATIVE (NEGATIVE); BENZODIAZEPINES SCREEN URINE NEGATIVE (NEGATIVE); CANNABINOID SCREEN, URINE POSITIVE (NEGATIVE); COCAINE SCREEN URINE POSITIVE (NEGATIVE); METHADONE STAT NEGATIVE (NEGATIVE); METHAMPHETAMINE SCREEN URINE S POSITIVE (NEGATIVE); OPIATE SCREEN URINE NEGATIVE (NEGATIVE); OXYCODONE STAT NEGATIVE (NEGATIVE); PROPOXYPHENE STAT NEGATIVE (NEGATIVE); TRICYCLIC ANTIDEPRESSANTS SCRE NEGATIVE (NEGATIVE)
[2021-06-15] MEDS ORDERED: NAPR500T8 PO (01:21)
[2021-06-15] MEDS ORDERED: PANT40TA2 PO (01:21)
[2021-06-15] MEDS ORDERED: KETOROLAC 30 MG/ML VIAL IVP ONE (01:30)
[2021-06-15] MEDS ORDERED: PANTOPRAZOLE 40 MG (PROTONIX) VIAL IV ONE (01:30)
--- NOTE | 2021-06-15 06:52 | Diagnostic Imaging Report ---
Indication: Chest pain Single AP view of chest is obtained with comparison made study of 04/02/2021. FINDINGS: Heart size and pulmonary vascularity are within normal limits, and the lungs are clear, bilaterally. IMPRESSION: Unremarkable chest. Dictated by: Dictated on workstation # [id number]
== END 2021-06-15 02:02 | disposition home or self-care (01) ==
LOC: EDUNIT# 23:48 → ER 23:52
DX: F19.90 Other psychoactive substance use, unspecified, uncomplicated (principal); R07.89 Other chest pain; I10 Essential (primary) hypertension; F15.90 Other stimulant use, unspecified, uncomplicated; F14.90 Cocaine use, unspecified, uncomplicated; E66.01 Morbid (severe) obesity due to excess calories; R00.0 Tachycardia, unspecified; F17.210 Nicotine dependence, cigarettes, uncomplicated; Z20.822 Contact with and (suspected) exposure to COVID-19; Z68.43 Body mass index [BMI] 50.0-59.9, adult
CPT/HCPCS: 36415; 71045; 80053; 80306; 80320; 81000; 82150; 82550; 82553; 83690; 83735; 83880; 84484; 84703; 85025; 87636; 93005; 93041

== ENCOUNTER 2021-06-16 20:35 | Emergency (ER) | payer MEDICAID ==
[~2021-06-16] VITALS: Ht 178 cm; Wt 175.0 kg
[~2021-06-16 20:35] MED LIST changes: +NAPR500T8 PO; +PANT40TA2 PO
[2021-06-16 20:45] VITALS: BP 139/104
[2021-06-16] MEDS ORDERED: ANTACID SUSP 30 ML UDC (MYLANTA) PO ONE (21:00)
[2021-06-16] MEDS ORDERED: ASPIRIN 81 MG CHEW (CHILDREN'S ASA) PO ONE (21:00)
[2021-06-16] MEDS ORDERED: LORazepam INJ 2 MG/ML (ATIVAN) VIAL IVP ONE (21:00)
[2021-06-16] MEDS ORDERED: LIDOCAINE 2% VISCOUS 15 ML UDC PO ONE (21:00)
--- NOTE | 2021-06-16 21:01 | ED Chest Pain ---
General Stated Complaint: CHEST PAIN,SOB Source: patient Exam Limitations: no limitations History of Present Illness Date Seen by Provider: Jun 16, 2021 Time Seen by Provider: 20:58 Initial Comments To ER with chest pain and shortness of breath. Pain is been constant for 3 days. She was seen here at the onset of this and at that time the pain had just begun after snorting cocaine methamphetamine and marijuana. She states the pain has never gone away despite taking her acid reducing medications. 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 The pain is sharp shooting central chest and movement makes it worse. Putting pressure on the center of her chest at the sternum seems to help. Timing/Duration: 2-3 days Severity/Quality: severe, sharp Location: central Radiation: no radiation ASA po WHEEL BORER: No NTG SL WHEEL BORER: No Associated Symptoms: shortness of breath Allergies and Home Medications Allergies Coded Allergies: No Known Drug Allergies (Unverified , 10/20/12) Patient Home Medication List Home Medication List Reviewed: Yes Albuterol (Proair Hfa) 8.5 Gm Hfa.aer.ad, 8.5 GM IH Q2, (Reported) Entered as Reported by: RAMU WALLIS on 10/20/122034 Albuterol Sulfate (Ventolin Hfa) 1 Puff Puff, 2 PUFF INH Q4H PRN for WHEEZING Prescribed by: APRIL FONSECA on 08/17/19 2212 Azithromycin (Azithromycin) 250 Mg Tablet, 250 MG PO DAILY Prescribed by: ADIN MANN on 06/22/19 0022 Beclomethasone Dipropionate (Qvar) 8.7 Gm Aer.w.adap, 8.7 GM IH BID Prescribed by: BETTINA ZAVALA on 09/18/17 1540 Benzonatate (Tessalon Perles) 100 Mg Capsule, 100 MG PO Q6H PRN for COUGH Prescribed by: APRIL FONSECA on 04/02/21 1227 Hydralazine HCl (Hydralazine HCl) 10 Mg Tablet, 10 MG PO TID PRN for BLOOD PRESSURE Prescribed by: BRETT HASSAN on 01/14/21 2312 Ibuprofen (Ibu) 600 Mg Tablet, 600 MG PO Q6H Prescribed by: BRINA CM on 10/18/17 0948 Ibuprofen (Ibu) 600 Mg Tablet, 600 MG PO Q6H Prescribed by: TOÑO BONILLA on 12/12/18 0813 Ipratropium/Albuterol Sulfate (Iprat-Albut 0.5-3(2.5) mg/3 ml) 3 Ml Ampul.neb, 3 ML IH Q6H PRN for SHORTNESS OF BREATH Prescribed by: BETTINA ZAVALA on 09/18/17 1540 Ipratropium/Albuterol Sulfate (Iprat-Albut 0.5-3(2.5) mg/3 ml) 3 Ml Ampul.neb, 3 ML IH Q4H PRN for SHORTNESS OF BREATH Prescribed by: APRIL FONSECA on 04/02/21 1238 Naproxen (Naproxen) 500 Mg Tablet.dr, 500 MG PO BID Prescribed by: BRETT HASSAN on 06/15/21 0121 Nebulizer (Compact Compressor Nebulizer) 1 Each Each, EACH [facility], (DME) Prescribed by: APRIL FONSECA on 08/17/19 2212 Omeprazole (Omeprazole) 40 Mg Capsule.dr, 40 MG PO DAILY Prescribed by: APRIL FONSECA on 12/15/18 0551 Omeprazole (Omeprazole) 20 Mg Tablet.dr, 20 MG PO BID Prescribed by: SHEILA WALTERS on 04/06/19 1741 Ondansetron (Ondansetron Odt) 4 Mg Tab.rapdis, 4-8 MG PO Q6H PRN for NAUSEA/VOMITING Prescribed by: APRIL FONSECA on 04/02/21 1227 Pantoprazole Sodium (Protonix) 40 Mg Tablet.dr, 40 MG PO DAILY Prescribed by: BRETT HASSAN on 06/15/21 0121 Pnv No.122/Iron/Folic Acid ( Multi Tablet) 1 Each Tablet, 1 EACH PO DAILY Prescribed by: BRETT HASSAN on 04/27/18 2151 Prednisone (Prednisone) 20 Mg Tab, 40 MG PO BID Prescribed by: APRIL FONSECA on 12/15/18 0535 Prednisone (Prednisone) 20 Mg Tab, 40 MG PO DAILY Prescribed by: ADIN MANN on 06/22/19 0022 Promethazine HCl/Codeine (Promethazine-Codeine Solution) 473 Ml Syrup, 5 ML PO Q6H PRN for cough/nausea Prescribed by: RODRÍGUEZ LYNCH on 10/15/20 1632 Review of Systems Review of Systems Constitutional: see HPI EENTM: No Symptoms Reported Respiratory: See HPI, Shortness of Air Cardiovascular: See HPI, Chest Pain Gastrointestinal: No Symptoms Reported Genitourinary: No Symptoms Reported Musculoskeletal: no symptoms reported Skin: no symptoms reported Psychiatric/Neurological: No Symptoms Reported Endocrine: No Symptoms Reported Hematologic/Lymphatic: No Symptoms Reported Past Mruyuxe-Wgojni-Lrqaex Hx Immunizations Up To Date Tetanus Booster (TDap): Unknown PED Vaccines UTD: No First/Initial COVID19 Vaccinat: Unvaccinated Seasonal Allergies Seasonal Allergies: Yes Past Medical History Surgery/Hospitalization HX: COPD, asthma Surgeries: No Respiratory: Yes (COVID-19 04/02/21--NO TREATMENT) Asthma, COPD Currently Using CPAP: No Currently Using BIPAP: No Cardiac: Yes (REFUSES TO TAKE MEDICATION) Hypertension Neurological: No 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 Disorders: Yes 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, Ovarian Cyst CLAY CARMAN History: IUD Sexually Transmitted Disease: Yes (HERPES, 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 ) HIV/AIDS: No Genitourinary: Yes UTI-Chronic Gastrointestinal: Yes Gastroesophageal Reflux, Hemorrhoids Musculoskeletal: No Endocrine: Yes (MORBID OBESITY) HEENT: No Loss of Vision: Denies Hearing Impairment: Denies Cancer: No Psychosocial: Yes (POLYSUBSTANCE ABUSE) Depression Integumentary: Yes Herpes Blood Disorders: No Adverse Reaction/Blood Tranf: No Family Medical History Asthma 19 FATHER G8 BROTHER Completed stroke MATERNAL GRANDFATHER Diabetes mellitus 19 FATHER 19 MOTHER Drug abuse 19 FATHER G8 BROTHER G8 BROTHER G8 BROTHER FH: breast cancer MATERNAL GRANDMOTHE ( AGE 71) Headache disorder G8 SISTER Hypertension 19 MOTHER G8 BROTHER Psychosocial problem G8 BROTHER Seizure disorder MATERNAL GRANDMOTHE SOCIAL HISTORY: -SMOKES 1 PPD -ETOH--"COUPLE OF TIMES A WEEK" -DRUGS--SNORTS COCAINE, SMOKES METH AND MARIJUANA. ALSO HX OF ECSTASY USE Physical Exam Vital Signs Vital Signs - First Documented 06/16/21 20:45 Temp 36.4 Pulse 94 Resp 20 B/P (MAP) 139/104 (116) Pulse Ox 96 O2 Delivery Room Air Capillary Refill : Height, Weight, BMI Height: 5'11.00" Weight: 362lbs. 0.8oz. 164.405199jn; 54.00 BMI Method:Stated General Appearance: No Apparent Distress, WD/WN, Anxious, Other (Moaning, unable to sit still.) HEENT: PERRL/EOMI, TMs Normal Neck: Full Range of Motion, Normal Inspection Respiratory: Normal Breath Sounds, No Accessory Muscle Use, No Respiratory Distress Cardiovascular: Regular Rate, Rhythm, Normal Peripheral Pulses Gastrointestinal: Normal Bowel Sounds, Non Tender, Soft Extremity: Normal Capillary Refill, Normal Inspection Neurologic/Psychiatric: Alert, Oriented x3 Skin: Normal Color, Warm/Dry Progress/Results/Core Measures Results/Orders Lab Results Laboratory Tests Test 06/16/21 20:55 06/16/21 21:55 Range/Units White Blood Count 9.2 4.3-11.0 10^3/uL Red Blood Count 4.81 3.80-5.11 10^6/uL Hemoglobin 12.6 11.5-16.0 g/dL Hematocrit 42 35-52 % Mean Corpuscular Volume 88 80-99 fL Mean Corpuscular Hemoglobin 26 25-34 pg Mean Corpuscular Hemoglobin Concent 30 L 32-36 g/dL Red Cell Distribution Width 14.0 10.0-14.5 % Platelet Count 329 130-400 10^3/uL Mean Platelet Volume 8.7 L 9.0-12.2 fL Immature Granulocyte % (Auto) 0 % Neutrophils (%) (Auto) 60 42-75 % Lymphocytes (%) (Auto) 28 12-44 % Monocytes (%) (Auto) 7 0-12 % Eosinophils (%) (Auto) 5 0-10 % Basophils (%) (Auto) 1 0-10 % Neutrophils # (Auto) 5.5 1.8-7.8 10^3/uL Lymphocytes # (Auto) 2.5 1.0-4.0 10^3/uL Monocytes # (Auto) 0.7 0.0-1.0 10^3/uL Eosinophils # (Auto) 0.4 H 0.0-0.3 10^3/uL Basophils # (Auto) 0.1 0.0-0.1 10^3/uL Immature Granulocyte # (Auto) 0.0 0.0-0.1 10^3/uL Prothrombin Time 13.8 12.2-14.7 SEC INR Comment 1.0 0.8-1.4 Activated Partial Thromboplast Time 32 24-35 SEC D-Dimer 0.40 0.00-0.49 UG/ML Sodium Level 143 135-145 MMOL/L Potassium Level 3.8 3.6-5.0 MMOL/L Chloride Level 105 98-107 MMOL/L Carbon Dioxide Level 22 21-32 MMOL/L Anion Gap 16 H 5-14 MMOL/L Blood Urea Nitrogen 10 7-18 MG/DL Creatinine 0.90 0.60-1.30 MG/DL Estimat Glomerular Filtration Rate 85 BUN/Creatinine Ratio 11 Glucose Level 69 L 70-105 MG/DL Calcium Level 9.1 8.5-10.1 MG/DL Corrected Calcium 9.3 8.5-10.1 MG/DL Magnesium Level 1.8 1.6-2.4 MG/DL Total Bilirubin 0.3 0.1-1.0 MG/DL Aspartate Amino Transf (AST/SGOT) 18 5-34 U/L Alanine Aminotransferase (ALT/SGPT) 25 0-55 U/L Alkaline Phosphatase 91 40-136 U/L Myoglobin 81.1 10.0-92.0 NG/ML Troponin I < 0.028 <0.028 NG/ML B-Type Natriuretic Peptide < 10.0 <100.0 PG/ML Total Protein 7.0 6.4-8.2 GM/DL Albumin 3.7 3.2-4.5 GM/DL Serum Test, Qualitative NEGATIVE NEGATIVE Serum Alcohol < 10 <10 MG/DL Urine Opiates Screen NEGATIVE NEGATIVE Urine Oxycodone Screen NEGATIVE NEGATIVE Urine Methadone Screen NEGATIVE NEGATIVE Urine Propoxyphene Screen NEGATIVE NEGATIVE Urine Barbiturates Screen NEGATIVE NEGATIVE Ur Tricyclic Antidepressants Screen NEGATIVE NEGATIVE Urine Phencyclidine Screen NEGATIVE NEGATIVE Urine Amphetamines Screen POSITIVE H NEGATIVE Urine Methamphetamines Screen POSITIVE H NEGATIVE Urine Benzodiazepines Screen NEGATIVE NEGATIVE Urine Cocaine Screen POSITIVE H NEGATIVE Urine Cannabinoids Screen POSITIVE H NEGATIVE My Orders Orders - JOSE ROACH APRN Cbc With Automated Diff (06/16/21 20:57) Magnesium (06/16/21 20:57) Chest 1 View, Ap/Pa Only (06/16/21 20:57) Ekg Tracing (06/16/21 20:57) Comprehensive Metabolic Panel (06/16/21 20:57) Myoglobin Serum (06/16/21 20:57) Protime With Inr (4/1/22 20:57) Partial Thromboplastin Time (06/16/21 20:57) O2 (06/16/21 20:57) Monitor-Rhythm Ecg Trace Only (06/16/21 20:57) Lipid Panel (06/17/21 06:00) Ed Iv/Invasive Line Start (06/16/21 20:57) Bnp Dimmit (06/16/21 20:57) Troponin I Dimmit (06/16/21 20:57) Aspirin Chewable Tablet (Baby Aspirin Ch (06/16/21 21:00) Alcohol (06/16/21 20:57) Lorazepam Injection (Ativan Injection) (06/16/21 21:00) Antacid Suspension (Mylanta Suspension (06/16/21 21:00) Lidocaine 2% Viscous 15 Ml (Xylocaine Vi (06/16/21 21:00) Hcg,Qualitative Serum (06/16/21 20:57) Drug Screen Stat (Urine) (06/16/21 21:07) Fibrin Degradation Products (06/16/21 20:55) Ketorolac Injection (Toradol Injection) (06/16/21 22:00) Medications Given in ED Current Medications Medications Dose Ordered Sig/Violette Route Start Time Stop Time Status Last Admin Dose Admin Al Hydrox/Mg Hydrox/Simethicone 30 ml ONCE ONCE PO 06/16/21 21:00 06/16/21 21:01 DC 06/16/21 21:27 30 ML Aspirin 324 mg ONCE ONCE PO 06/16/21 21:00 06/16/21 21:01 DC 06/16/21 21:26 324 MG Lidocaine HCl 15 ml ONCE ONCE PO 06/16/21 21:00 06/16/21 21:01 DC 06/16/21 21:29 15 ML Lorazepam 1 mg ONCE ONCE IVP 06/16/21 21:00 06/16/21 21:01 DC 06/16/21 21:24 1 MG Vital Signs/I&O 06/16/21 20:45 Temp 36.4 Pulse 94 Resp 20 B/P (MAP) 139/104 (116) Pulse Ox 96 O2 Delivery Room Air Departure Communication (Admissions) Family Conversation EKG has sinus rhythm at [address] segment changes no ectopy normal intervals. 2216-after the 1 mg of lorazepam and GI cocktail her symptoms are much improved with pain down to about a 3/10. She denies any recent drug use other than what she reported 3 days ago though she did act acutely intoxicated on methamphetamine given the inability to sit still. Impression Primary Impression: Chest pain Disposition: HOME, SELF-CARE Condition: Stable Departure-Patient Inst. Decision time for Depature: 22:17 Referrals: BRINA CM MD (PCP/Family) Primary Care Physician Patient Instructions: Chest Pain Add. Discharge Instructions: 1. Return to ER for any concerns 2. Follow-up with your doctor next week. Continue all current medications. Avoid any drug use, methamphetamine and cocaine can both absolutely cause these symptoms and after about 36 hours these should be out of your system.. Work/School Note: Work Release Form Date Seen in the Emergency Department: Jun 16, 2021 Return to Work: Jun 17, 2021 JOSE ROACH APRN Jun 16, 2021 21:01
[2021-06-16 21:03] LABS: BASOPHILS # (AUTO) 0.1 10^3/uL (0.0-0.1); BASOPHILS % (AUTO) 1 % (0-10); EOSINOPHILS # (AUTO) 0.4 10^3/uL (0.0-0.3); EOSINOPHILS % (AUTO) 5 % (0-10); HEMATOCRIT 42 % (35-52); HEMOGLOBIN 12.6 g/dL (11.5-16.0); LYMPHOCYTES # (AUTO) 2.5 10^3/uL (1.0-4.0); LYMPHOCYTES % (AUTO) 28 % (12-44); MEAN CORPUSCULAR HEMOGLOBIN 26 pg (25-34); MEAN CORPUSCULAR HGB CONC 30 g/dL (32-36); MEAN CORPUSCULAR VOLUME 88 fL (80-99); MEAN PLATELET VOLUME 8.7 fL (9.0-12.2); MONOCYTES # (AUTO) 0.7 10^3/uL (0.0-1.0); MONOCYTES % (AUTO) 7 % (0-12); NEUTROPHILS # (AUTO) 5.5 10^3/uL (1.8-7.8); NEUTROPHILS % (AUTO) 60 % (42-75); PLATELET COUNT 329 10^3/uL (130-400); WHITE BLOOD COUNT 9.2 10^3/uL (4.3-11.0)
[2021-06-16 21:13] LABS: ALBUMIN 3.7 GM/DL (3.2-4.5)
[2021-06-16 21:14] LABS: POTASSIUM 3.8 MMOL/L (3.6-5.0)
[2021-06-16 21:15] LABS: CALCIUM 9.1 MG/DL (8.5-10.1)
[2021-06-16 21:18] LABS: BILIRUBIN,TOTAL 0.3 MG/DL (0.1-1.0)
[2021-06-16 21:20] LABS: CREATININE SERUM 0.9 MG/DL (0.60-1.30)
[2021-06-16 21:22] LABS: MAGNESIUM 1.8 MG/DL (1.6-2.4)
[2021-06-16 21:35] LABS: FIBRIN DEGRADATION PRODUCTS 0.4 UG/ML (0.00-0.49); PROTHROMBIN TIME PATIENT 13.8 SEC (12.2-14.7)
--- NOTE | 2021-06-16 21:40 | Diagnostic Imaging Report ---
PATIENT HISTORY: Chest pain. TECHNIQUE: Single frontal view of the chest. COMPARISON: 06/15/2021. FINDINGS: The lung volumes are normal. No focal consolidation is seen. Haziness over the lungs is thought to be due to overlying soft tissue. No large pleural effusion or pneumothorax is seen. The cardiomediastinal silhouette is normal in size and contour. No acute osseous abnormality is seen. IMPRESSION: No acute pulmonary abnormality seen. Dictated by: Dictated on workstation # [id number]
[2021-06-16] MEDS ORDERED: KETOROLAC 30 MG/ML VIAL IVP ONE (22:00)
[2021-06-16 22:16] LABS: AMPHETAMINE SCREEN, URINE POSITIVE (NEGATIVE); BARBITURATE SCREEN URINE NEGATIVE (NEGATIVE); BENZODIAZEPINES SCREEN URINE NEGATIVE (NEGATIVE); CANNABINOID SCREEN, URINE POSITIVE (NEGATIVE); COCAINE SCREEN URINE POSITIVE (NEGATIVE); METHADONE STAT NEGATIVE (NEGATIVE); METHAMPHETAMINE SCREEN URINE S POSITIVE (NEGATIVE); OPIATE SCREEN URINE NEGATIVE (NEGATIVE); OXYCODONE STAT NEGATIVE (NEGATIVE); PROPOXYPHENE STAT NEGATIVE (NEGATIVE); TRICYCLIC ANTIDEPRESSANTS SCRE NEGATIVE (NEGATIVE)
== END 2021-06-16 22:45 | disposition home or self-care (01) ==
LOC: EDUNIT# 20:35 → ER 20:40
DX: R07.9 Chest pain, unspecified (principal); E66.01 Morbid (severe) obesity due to excess calories; Z68.43 Body mass index [BMI] 50.0-59.9, adult
CPT/HCPCS: 36415; 71045; 80053; 80306; 80320; 83735; 83874; 83880; 84484; 84703; 85025; 85379; 85610; 85730; 93041

== ENCOUNTER 2021-08-03 22:54 | Emergency (ER) | payer MEDICAID ==
[~2021-08-03 22:54] MED LIST changes: +OMEP20TA56 PO; -OMEP20TA7 PO
[2021-08-03 23:40] VITALS: BP 172/111
[2021-08-03 23:59] LABS: BASOPHILS # (AUTO) 0.1 10^3/uL (0.0-0.1); BASOPHILS % (AUTO) 1 % (0-10); EOSINOPHILS # (AUTO) 0.6 10^3/uL (0.0-0.3); EOSINOPHILS % (AUTO) 6 % (0-10); HEMATOCRIT 43 % (35-52); LYMPHOCYTES # (AUTO) 2.3 10^3/uL (1.0-4.0); LYMPHOCYTES % (AUTO) 22 % (12-44); MEAN CORPUSCULAR HEMOGLOBIN 26 pg (25-34); MEAN CORPUSCULAR HGB CONC 30 g/dL (32-36); MEAN CORPUSCULAR VOLUME 85 fL (80-99); MONOCYTES # (AUTO) 0.9 10^3/uL (0.0-1.0); MONOCYTES % (AUTO) 8 % (0-12); NEUTROPHILS # (AUTO) 6.6 10^3/uL (1.8-7.8); NEUTROPHILS % (AUTO) 63 % (42-75); PLATELET COUNT 366 10^3/uL (130-400); WHITE BLOOD COUNT 10.5 10^3/uL (4.3-11.0)
[2021-08-04] MEDS ORDERED: RT-ALBUTEROL HFA 8.5 GM INHALER IH PRN
[2021-08-04] MEDS ORDERED: ONDANSETRON 4 MG/2 ML (SDV) Z0FRAN IVP ONE
[2021-08-04] MEDS ORDERED: BENZONATATE 100 MG (TESSALON) CAPSULE PO SCH
[2021-08-04 00:08] LABS: BILIRUBIN,URINE NEGATIVE (NEGATIVE); CLARITY,URINE CLEAR; COLOR,URINE YELLOW; GLUCOSE, URINE (UA) NEGATIVE (NEGATIVE); KETONES,URINE NEGATIVE (NEGATIVE); LEUKOCYTE ESTERASE ,URINE TRACE (NEGATIVE); NITRITE,URINE NEGATIVE (NEGATIVE); PH,URINE 6.5 (5-9); PROTEIN,URINE NEGATIVE (NEGATIVE)
[2021-08-04 00:10] LABS: ALBUMIN 3.7 GM/DL (3.2-4.5)
[2021-08-04 00:11] LABS: CHLORIDE 108 MMOL/L (98-107); POTASSIUM 3.4 MMOL/L (3.6-5.0); SODIUM 142 MMOL/L (135-145)
[2021-08-04 00:12] LABS: CALCIUM 9.1 MG/DL (8.5-10.1)
[2021-08-04 00:13] LABS: GLUCOSE 104 MG/DL (70-105)
[2021-08-04 00:14] LABS: CARBON DIOXIDE 21 MMOL/L (21-32)
[2021-08-04 00:15] LABS: BILIRUBIN,TOTAL 0.3 MG/DL (0.1-1.0)
[2021-08-04 00:17] LABS: ALKALINE PHOSPHATASE 92 U/L (40-136); CREATININE SERUM 0.75 MG/DL (0.60-1.30); GFR ESTIMATED 106
[2021-08-04 00:18] LABS: BUN/CREATININE RATIO 9
[2021-08-04 00:20] LABS: ALANINE AMINOTRANSFERASE 20 U/L (0-55); MAGNESIUM 1.8 MG/DL (1.6-2.4)
[2021-08-04] MEDS ORDERED: RT--FLUTICASONE/SALMETEROL 113-14 (AIRDUO RespiCLICK) IH ONE (00:20)
[2021-08-04 00:21] LABS: BACTERIA,URINE TRACE /HPF; SQUAMOUS EPITHELIAL CELL,UR 0-2 /HPF; WBC,URINE 0-2 /HPF
[2021-08-04] MEDS ORDERED: PRD20T PO (01:03)
[2021-08-04] MEDS ORDERED: DOXY100T2 PO (01:03)
[2021-08-04] MEDS ORDERED: BENZ100C18 PO (01:04)
--- NOTE | 2021-08-04 01:05 | ED Respiratory ---
General Chief Complaint: Respiratory Problems Stated Complaint: SOB,COUGHING,CHEST HURTS Nursing Triage Note: PT AMB TO [facility] 6 WITH C/O SOB AND COUGH THAT STARTED THIS EVENING. PT STATES SHE RAN OUT OF INHALERS BUT HAS BEEN USING HER BREATHING MACHINE AT HOME Source: patient History of Present Illness Date Seen by Provider: August 03, 2021 Time Seen by Provider: 23:30 Initial Comments PT ARRIVES VIA POV FROM HOME STATES SHE HAS BEEN SICK FOR THE LAST 2 DAYS C/O NON-PRODUCTIVE COUGH C/O MUCH NASAL CONGESTION AND CLEAR NASAL DRAINAGE C/O SHORTNESS OF BREATH AND WHEEZING--PT HAS ASTHMA / COPD AND RAN OUT OF HER ALBUTEROL INHALER USED HER NEBULIZER TONIGHT WITHOUT RELIEF HAS NOT CHECKED TEMP CHEST IS TIGHT PT HAS NOT TAKEN ANYTHING FOR HER SYMPTOMS OTHERWISE PT WORKS AT [employer] PT HAS NOT HAD ANY COVID OF FLU VACCINES PT TESTED + FOR COVID-19 04/02/21--NO TREATMENT PT HAS HAD MULTIPLE VISITS HERE FOR SAME AND FREQUENTLY IS HERE BECAUSE SHE HAS RAN OUT OF HER INHALER AND HAS RECEIVED A MULTITUDE OF RX'S FOR INHALER REFILLS AND HAS BEEN SENT HOME WITH INHALERS MULTIPLE TIMES FROM ER. PT HAS NOT ATTEMPTED TO FOLLOW UP WITH [facility] AT ANY TIME FOR THIS CONDITION OR ANY TIME RECENTLY. PT IS SUPPOSED TO BE ON MEDICATIONS FOR HTN WELL, BUT REFUSES TO TAKE IT. ADDITIONALLY, PT HAS EXTENSIVE POLYSUBSTANCE ABUSE HISTORY, AND SMOKES METH AND THC, AND SNORTS COCAINE. SHE ALSO SMOKES AT LEAST 1 PPD OF CIGARETTES PT IS ESTABLISHED PT AT [facility] BUT REFUSES TO SCHEDULE ANY APPOINTMENTS FOR ROUTINE MEDICAL CARE--USES ER AND [facility] FOR ALL MEDICAL CARE. Allergies and Home Medications Allergies Coded Allergies: No Known Drug Allergies (Unverified , 10/20/12) Patient Home Medication List Home Medication List Reviewed: Yes Albuterol (Proair Hfa) 8.5 Gm Hfa.aer.ad, 8.5 GM IH Q2, (Reported) Entered as Reported by: RAMU WALLIS on 10/20/122034 Albuterol Sulfate (Ventolin Hfa) 1 Puff Puff, 2 PUFF INH Q4H PRN for WHEEZING Prescribed by: APRIL FONSECA on 08/17/192211 Azithromycin (Azithromycin) 250 Mg Tablet, 250 MG PO DAILY Prescribed by: ADIN MANN on 06/22/19 0022 Beclomethasone Dipropionate (Qvar) 8.7 Gm Aer.w.adap, 8.7 GM IH BID Prescribed by: BETTINA ZAVALA on 09/18/17 1540 Benzonatate (Tessalon Perles) 100 Mg Capsule, 100 MG PO Q6H PRN for COUGH Prescribed by: APRIL FONSECA on 04/02/21 1227 Benzonatate (Tessalon Perles) 100 Mg Capsule, 200 MG PO TID Prescribed by: BRETT HASSAN on 08/04/21 0104 Doxycycline Hyclate (Doxycycline Hyclate) 100 Mg Tablet, 100 MG PO BID Prescribed by: BRETT HASSAN on 08/04/21 0103 Hydralazine HCl (Hydralazine HCl) 10 Mg Tablet, 10 MG PO TID PRN for BLOOD PRESS URE Prescribed by: BRETT HASSAN on 01/14/21 2312 Ibuprofen (Ibu) 600 Mg Tablet, 600 MG PO Q6H Prescribed by: BRINA CM on 10/18/17 0948 Ibuprofen (Ibu) 600 Mg Tablet, 600 MG PO Q6H Prescribed by: TOÑO BONILLA on 12/12/18 0813 Ipratropium/Albuterol Sulfate (Iprat-Albut 0.5-3(2.5) mg/3 ml) 3 Ml Ampul.neb, 3 ML IH Q6H PRN for SHORTNESS OF BREATH Prescribed by: BETTINA ZAVALA on 09/18/17 1540 Ipratropium/Albuterol Sulfate (Iprat-Albut 0.5-3(2.5) mg/3 ml) 3 Ml Ampul.neb, 3 ML IH Q4H PRN for SHORTNESS OF BREATH Prescribed by: APRIL FONSECA on 04/02/21 1238 Naproxen (Naproxen) 500 Mg Tablet.dr, 500 MG PO BID Prescribed by: BRETT HASSAN on 06/15/21 0121 Nebulizer (Compact Compressor Nebulizer) 1 Each Each, EACH [facility], (DME) Prescribed by: APRIL FONSECA on 08/17/19 2212 Omeprazole (Omeprazole) 40 Mg Capsule.dr, 40 MG PO DAILY Prescribed by: APRIL FONSCEA on 12/15/18 0551 Omeprazole (Omeprazole) 20 Mg Tablet.dr, 20 MG PO BID Prescribed by: SHEILA WALTERS on 04/06/19 1741 Ondansetron (Ondansetron Odt) 4 Mg Tab.rapdis, 4-8 MG PO Q6H PRN for NAUSEA/VOMITING Prescribed by: APRIL FONSECA on 04/02/21 1227 Pantoprazole Sodium (Protonix) 40 Mg Tablet.dr, 40 MG PO DAILY Prescribed by: BRETT HASSAN on 06/15/21 0121 Pnv No.122/Iron/Folic Acid ( Multi Tablet) 1 Each Tablet, 1 EACH PO DAILY Prescribed by: BRETT HASSAN on 04/27/18 2151 Prednisone (Prednisone) 20 Mg Tab, 40 MG PO BID Prescribed by: APRIL FONSECA on 12/15/18 0535 Prednisone (Prednisone) 20 Mg Tab, 40 MG PO DAILY Prescribed by: ADIN MANN on 06/22/19 0022 Prednisone (Prednisone) 20 Mg Tab, 40 MG PO DAILY Prescribed by: BRETT HASSAN on 08/04/21 0103 Promethazine HCl/Codeine (Promethazine-Codeine Solution) 473 Ml Syrup, 5 ML PO Q6H PRN for cough/nausea Prescribed by: RODRÍGUEZ LYNCH on 10/15/20 1632 Review of Systems Review of Systems Constitutional: no symptoms reported EENTM: nose congestion Respiratory: see HPI, cough, short of breath, wheezing Cardiovascular: see HPI, chest pain Gastrointestinal: no symptoms reported Genitourinary: no symptoms reported : No Musculoskeletal: no symptoms reported Skin: no symptoms reported Psychiatric/Neurological: No Symptoms Reported Hematologic/Lymphatic: No Symptoms Reported Immunological/Allergic: no symptoms reported Past Adcqzlq-Jzxtmw-Qopgvw Hx Patient Social History Tobacco Use?: Yes Tobacco type used: Cigarettes Smoking Status: Current Everyday Smoker Substance use?: Yes Substance type: Methamphetamine, Marijuana, Other Additional substance use comme: SMOKES METH AND THC, AND SNORTS COCAINE Alcohol Use?: Yes Alcohol Frequency: Couple times a week Immunizations Up To Date Tetanus Booster (TDap): Unknown PED Vaccines UTD: No First/Initial COVID19 Vaccinat: Unvaccinated Seasonal Allergies Seasonal Allergies: Yes Past Medical History Surgery/Hospitalization HX: COPD, asthma Surgeries: No Respiratory: Yes (COVID-19 04/02/21--NO TREATMENT) Asthma, COPD Currently Using CPAP: No Currently Using BIPAP: No Cardiac: Yes (REFUSES TO TAKE MEDICATION) Hypertension Neurological: No 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 Disorders: Yes 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, 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 Sexually Transmitted Disease: Yes (HERPES,) HIV/AIDS: No Genitourinary: Yes UTI-Chronic Gastrointestinal: Yes Gastroesophageal Reflux, Hemorrhoids Musculoskeletal: No Endocrine: Yes (MORBID OBESITY) HEENT: No Loss of Vision: Denies Hearing Impairment: Denies Cancer: No Psychosocial: Yes (POLYSUBSTANCE ABUSE) Depression Integumentary: Yes Herpes Blood Disorders: No Adverse Reaction/Blood Tranf: No Family Medical History Asthma 19 FATHER G8 BROTHER Completed stroke MATERNAL GRANDFATHER Diabetes mellitus 19 FATHER 19 MOTHER Drug abuse 19 FATHER G8 BROTHER G8 BROTHER G8 BROTHER FH: breast cancer MATERNAL GRANDMOTHE ( AGE 71) Headache disorder G8 SISTER Hypertension 19 MOTHER G8 BROTHER Psychosocial problem G8 BROTHER Seizure disorder MATERNAL GRANDMOTHE SOCIAL HISTORY: -SMOKES 1 PPD -ETOH--"COUPLE OF TIMES A WEEK" -DRUGS--SNORTS COCAINE, SMOKES METH AND MARIJUANA. ALSO HX OF ECSTASY USE EXTREME NON-COMPLIANCE IN ALL ASPECTS OF CARE Physical Exam Vital Signs - First Documented 08/03/21 23:40 Temp 36.2 Pulse 99 Resp 22 B/P (MAP) 172/111 (131) Capillary Refill : Height: 5'11.00" Weight: 362lbs. 0.8oz. 164.774119qg; 55.00 BMI Method:Stated General Appearance: obese (MORBIDLY), other (SLIGHTLY DYSPNEIC ON ARRIVAL. REEKS OF MARIJUANA AND REGULAR CIGARETTES) HEENT: PERRL/EOMI, other (MARKED NASAL CONGESTION AND CLEAR RHINORRHEA) Neck: normal inspection Respiratory: wheezing (DIFFUSE EXPIRATORY WHEEZING IN ALL LUNG MCKNIGHT) Cardiovascular: regular rate, rhythm, no murmur Gastrointestinal: soft Extremities: no pedal edema, normal capillary refill Neurologic/Psychiatric: no motor/sensory deficits, alert, oriented x 3 Skin: normal color (PT IS BLACK), warm/dry, tattoos/piercings Focused Exam Lactate Level 08/04/21 00:15: Lactic Acid Level 1.13 Lactic Acid Level Laboratory Tests Test 08/04/21 00:15 Lactic Acid Level 1.13 MMOL/L (0.50-2.00) Progress/Results/Core Measures Suspected Sepsis SIRS Temperature: Pulse: 99 Respiratory Rate: 22 Laboratory Tests 08/03/21 23:50: White Blood Count 10.5 Blood Pressure 172 /111 Mean: 131 08/04/21 00:15: Lactic Acid Level 1.13 Laboratory Tests 08/03/21 23:50: Creatinine 0.75, Platelet Count 366, Total Bilirubin 0.3 Results/Orders Lab Results Laboratory Tests Test 08/03/21 23:45 08/03/21 23:49 08/03/21 23:50 08/04/21 00:15 Range/Units Influenza Type A (RT-PCR) Not Detected Not Detecte Influenza Type B (RT-PCR) Not Detected Not Detecte SARS-CoV-2 RNA (RT-PCR) Not Detected Not Detecte Urine Color YELLOW Urine Clarity CLEAR Urine pH 6.5 5-9 Urine Specific [place] 1.020 1.016-1.022 Urine Protein NEGATIVE NEGATIVE Urine Glucose (UA) NEGATIVE NEGATIVE Urine Ketones NEGATIVE NEGATIVE Urine Nitrite NEGATIVE NEGATIVE Urine Bilirubin NEGATIVE NEGATIVE Urine Urobilinogen 2.0 < = 1.0 MG/DL Urine Leukocyte Esterase TRACE H NEGATIVE Urine RBC (Auto) 2+ H NEGATIVE Urine RBC 10-25 H /HPF Urine WBC 0-2 /HPF Urine Squamous Epithelial Cells 0-2 /HPF Urine Crystals NONE /LPF Urine Bacteria TRACE /HPF Urine Casts NONE /LPF Urine Mucus SMALL H /LPF Urine Culture Indicated NO White Blood Count 10.5 4.3-11.0 10^3/uL Red Blood Count 5.01 3.80-5.11 10^6/uL Hemoglobin 13.0 11.5-16.0 g/dL Hematocrit 43 35-52 % Mean Corpuscular Volume 85 80-99 fL Mean Corpuscular Hemoglobin 26 25-34 pg Mean Corpuscular Hemoglobin Concent 30 L 32-36 g/dL Red Cell Distribution Width 13.3 10.0-14.5 % Platelet Count 366 130-400 10^3/uL Mean Platelet Volume 9.0 9.0-12.2 fL Immature Granulocyte % (Auto) 0 % Neutrophils (%) (Auto) 63 42-75 % Lymphocytes (%) (Auto) 22 12-44 % Monocytes (%) (Auto) 8 0-12 % Eosinophils (%) (Auto) 6 0-10 % Basophils (%) (Auto) 1 0-10 % Neutrophils # (Auto) 6.6 1.8-7.8 10^3/uL Lymphocytes # (Auto) 2.3 1.0-4.0 10^3/uL Monocytes # (Auto) 0.9 0.0-1.0 10^3/uL Eosinophils # (Auto) 0.6 H 0.0-0.3 10^3/uL Basophils # (Auto) 0.1 0.0-0.1 10^3/uL Immature Granulocyte # (Auto) 0.0 0.0-0.1 10^3/uL D-Dimer 0.33 0.00-0.49 UG/ML Sodium Level 142 135-145 MMOL/L Potassium Level 3.4 L 3.6-5.0 MMOL/L Chloride Level 108 H 98-107 MMOL/L Carbon Dioxide Level 21 21-32 MMOL/L Anion Gap 13 5-14 MMOL/L Blood Urea Nitrogen 7 7-18 MG/DL Creatinine 0.75 0.60-1.30 MG/DL Estimat Glomerular Filtration Rate 106 BUN/Creatinine Ratio 9 Glucose Level 104 70-105 MG/DL Calcium Level 9.1 8.5-10.1 MG/DL Corrected Calcium 9.3 8.5-10.1 MG/DL Magnesium Level 1.8 1.6-2.4 MG/DL Total Bilirubin 0.3 0.1-1.0 MG/DL Aspartate Amino Transf (AST/SGOT) 18 5-34 U/L Alanine Aminotransferase (ALT/SGPT) 20 0-55 U/L Alkaline Phosphatase 92 40-136 U/L Troponin I < 0.028 <0.028 NG/ML B-Type Natriuretic Peptide 21.8 <100.0 PG/ML Total Protein 7.0 6.4-8.2 GM/DL Albumin 3.7 3.2-4.5 GM/DL Procalcitonin 0.02 <0.10 NG/ML Serum Test, Qualitative NEGATIVE NEGATIVE Lactic Acid Level 1.13 0.50-2.00 MMOL/L Test 08/04/21 04:08 Range/Units Urine Opiates Screen NEGATIVE NEGATIVE Urine Oxycodone Screen NEGATIVE NEGATIVE Urine Methadone Screen NEGATIVE NEGATIVE Urine Propoxyphene Screen NEGATIVE NEGATIVE Urine Barbiturates Screen NEGATIVE NEGATIVE Ur Tricyclic Antidepressants Screen NEGATIVE NEGATIVE Urine Phencyclidine Screen NEGATIVE NEGATIVE Urine Amphetamines Screen NEGATIVE NEGATIVE Urine Methamphetamines Screen NEGATIVE NEGATIVE Urine Benzodiazepines Screen NEGATIVE NEGATIVE Urine Cocaine Screen NEGATIVE NEGATIVE Urine Cannabinoids Screen POSITIVE H NEGATIVE My Orders Orders - BRETT HASSAN DO Covid 19 Inhouse Test (08/03/21 23:43) Influenza A And B By Pcr (08/03/21 23:43) Isolation Central Supply Req (08/03/21 23:43) Ed Iv/Invasive Line Start (08/03/21 23:49) Monitor-Rhythm Ecg Trace Only (08/03/21 23:49) Dexamethasone Injection (Decadron Inje (08/04/21 00:00) Bnp Routt (08/03/21 23:49) Cbc With Automated Diff (08/03/21 23:49) Comprehensive Metabolic Panel (08/03/21 23:49) Fibrin Degradation Products (08/03/21 23:49) Hcg,Qualitative Serum (08/03/21 23:49) Lactic Acid Analyzer (08/03/21 23:49) Magnesium (08/03/21 23:49) Ua Culture If Indicated (08/03/21 23:49) Blood Culture (08/03/21 23:49) Troponin I Routt (08/03/21 23:49) Procalcitonin (Pct) (08/03/21 23:49) Albuterol Inhaler (Albuterol) (08/04/21 00:00) Fluticasone/Salmeterol 115/21 (Advair Hf (08/04/21 08:00) Ondansetron Injection (Zofran Injectio (08/04/21 00:00) Benzonatate Capsule (Tessalon Perles) (08/04/21 00:00) Chest 1 View, Ap/Pa Only (08/04/21 00:01) Fluticasone/Salmeterol 113-14 (Airduo Re (08/04/21 08:00) Fluticasone/Salmeterol 113-14 (Airduo Re (08/04/21 00:20) Doxycycline Hyclate Tablet (Vibramycin T (08/04/21 01:15) Drug Screen Stat (Urine) (08/04/21 04:08) Medications Given in ED Current Medications Medications Dose Ordered Sig/Violette Route Start Time Stop Time Status Last Admin Dose Admin Albuterol Sulfate 4 PUFFS Q2H PRN IH 08/04/21 00:00 08/04/21 03:03 DC 08/04/21 00:04 8.5 GM Dexamethasone Sodium Phosphate 10 mg ONCE ONCE IV 08/04/21 00:00 08/04/21 00:01 DC 08/04/21 00:04 10 MG Ondansetron HCl 4 mg ONCE ONCE IVP 08/04/21 00:00 08/04/21 00:01 DC 08/04/21 00:04 4 MG Vital Signs/I&O 08/03/21 23:40 Temp 36.2 Pulse 99 Resp 22 B/P (MAP) 172/111 (131) Capillary Refill : Blood Pressure Mean: 131 Progress Note : Progress Note PPE WORN COVID AND FLU TESTING DONE O2 SATS 100% ON ROOM AIR GIVEN IV STEROIDS NEB TREATMENT GIVEN DECREASED WHEEZING DISCUSSED ELEVATED BLOOD PRESSURE--PT IS SUPPOSED TO BE ON BLOOD PRESSURE MEDICATION AND HAS CHRONICALLY REFUSED TO TAKE ANY MEDICATION FOR IT AND CHRONICALLY REFUSES TO FOLLOW UP WITH [facility] OR ANY ONE FOR THIS PROBLEM, AND PT STATES SHE IS NOT CONCERNED ABOUT IT AT ALL PT HAS BEEN ADVISED OF ASSISTED EFFECTS OF UNCONTROLLED BLOOD PRESSURE AT THIS VISIT, WELL ON MULTIPLE PRIOR VISITS. Diagnostic Imaging Comments CXR--NO ACUTE PROCESS, PENDING RADIOLOGIST REVIEW Reviewed: Reviewed by Me Departure Impression Primary Impression: Acute bronchitis Additional Impressions: Asthma exacerbation Upper respiratory infection Heavy smoker Marijuana use, continuous Non-compliance Uncontrolled hypertension Disposition: HOME, SELF-CARE Condition: Improved Departure-Patient Inst. Decision time for Depature: 01:01 Referrals: BRINA CM MD (PCP/Family) Primary Care Physician Patient Instructions: Asthma, Adult (DC), Bronchitis, Adult ED, Upper Respiratory Infection ED Add. Discharge Instructions: USE YOUR ALBUTEROL INHALER WITH SPACER AT ALL TIMES--USE EVERY 4 HOURS NEEDED RESCUE INHALER USE AIR DUO INHALER 2 PUFFS TWICE A DAY EVERY DAY FOR MAINTENANCE INHALER--USE WITH SPACER AT ALL TIMES USE FLONASE NASAL SPRAY DAILY USE CLARITIN 10 MG DAILY TYLENOL AND MOTRIN NEEDED FOR PAIN OR FEVER FOLLOW UP WITH YOUR DR IN 2-3 DAYS FOR FURTHER CARE, RETURN TO ER IF WORSE All discharge instructions reviewed with patient and/or family. Voiced understanding. Scripts Benzonatate (TESSALON PERLES) 100 Mg Capsule 200 MG PO TID, #30 CAP Prov: BRETT HASSAN DO 08/04/21 Doxycycline Hyclate (Doxycycline Hyclate) 100 Mg Tablet 100 MG PO BID, #20 TAB 0 Refills Prov: BRETT HASSAN DO 08/04/21 Prednisone (Prednisone) 20 Mg Tab 40 MG PO DAILY, #6 TAB 0 Refills Prov: BRETT HASSAN DO 08/04/21 BRETT HASSAN DO August 04, 2021 01:05
[2021-08-04] MEDS ORDERED: DOXYCYCLINE 100 MG (VIBRAMYCIN) TABLET PO SCH (01:15)
[2021-08-04 04:21] LABS: AMPHETAMINE SCREEN, URINE NEGATIVE (NEGATIVE); BARBITURATE SCREEN URINE NEGATIVE (NEGATIVE); BENZODIAZEPINES SCREEN URINE NEGATIVE (NEGATIVE); CANNABINOID SCREEN, URINE POSITIVE (NEGATIVE); COCAINE SCREEN URINE NEGATIVE (NEGATIVE); METHADONE STAT NEGATIVE (NEGATIVE); OPIATE SCREEN URINE NEGATIVE (NEGATIVE); OXYCODONE STAT NEGATIVE (NEGATIVE); PROPOXYPHENE STAT NEGATIVE (NEGATIVE); TRICYCLIC ANTIDEPRESSANTS SCRE NEGATIVE (NEGATIVE)
--- NOTE | 2021-08-04 06:52 | Diagnostic Imaging Report ---
INDICATION: Chest pain, cough COMPARISON: 06/16/21 FINDINGS: Single view of the chest demonstrates clear lungs bilaterally. Heart is normal. There is no pneumothorax. The osseous structures are normal. IMPRESSION: Negative chest Dictated by: Dictated on workstation # [id number]
[2021-08-04] MEDS ORDERED: RT--FLUTICASONE/SALMETEROL 113-14 (AIRDUO RespiCLICK) IH SCH (08:00)
[2021-08-04] MEDS ORDERED: ADVAIR HFA 115/21 MCG INHALER 8 GM IH ONE (08:00)
== END 2021-08-04 02:29 | disposition home or self-care (01) ==
LOC: EDUNIT# 22:54 → ER 22:57
DX: J20.9 Acute bronchitis, unspecified (principal); J44.9 Chronic obstructive pulmonary disease, unspecified; J06.9 Acute upper respiratory infection, unspecified; I10 Essential (primary) hypertension; F12.20 Cannabis dependence, uncomplicated; E66.01 Morbid (severe) obesity due to excess calories; F17.210 Nicotine dependence, cigarettes, uncomplicated; Z91.128 Patient's intentional underdosing of medication regimen for other reason; Z20.822 Contact with and (suspected) exposure to COVID-19
CPT/HCPCS: 36415; 71045; 80053; 80306; 81000; 83605; 83735; 83880; 84145; 84484; 84703; 85025; 85379; 87040; 87636; 93041

== ENCOUNTER → 2021-08-16 | Outpatient (CLI) | payer MEDICAID ==
[~2021-08-16] MED LIST changes: +DOXY100T2 PO; +RT-ALBUTEROL SULF 2.5 MG/3 ML PRE-MIX VIAL INH ONE
== END ==
LOC: RT 09:21
PROVIDERS: ATTEND Family Medicine
DX: J45.41 Moderate persistent asthma with (acute) exacerbation (principal)
CPT/HCPCS: 94060; 94726; 94729

== ENCOUNTER 2021-10-24 21:06 | Emergency (ER) | payer MEDICAID ==
[~2021-10-24] VITALS: Ht 172.7 cm; Wt 170.0 kg
[~2021-10-24 21:06] MED LIST changes: -RT-ALBUTEROL SULF 2.5 MG/3 ML PRE-MIX VIAL INH ONE
--- NOTE | 2021-10-24 21:34 | ED Cough/URI ---
General Chief Complaint: Fever-Adult/Adol Stated Complaint: DIZZINESS, FEVER Source: patient Exam Limitations: no limitations (MADHURI TROTTER) History of Present Illness Date Seen by Provider: Oct 24, 2021 Time Seen by Provider: 21:35 Initial Comments Patient is a 36-year-old female presents ED with dizziness weakness fatigue headache nausea with dry heaving and mild cough. Symptoms started this morning. She states she tested negative at work. Symptoms became worse today. She was placed on prednisone for her asthma. She does have a history of hypertension. She states she is urinating more frequently. She denies of any visual changes, chest pain, cough. She states she has an upset stomach. Not currently on her menstrual cycle. She states she had a temperature of 99 at home. Has not been taking any Tylenol or ibuprofen. She is hypertensive here but states she has not taken her metoprolol today. Denies any neck pain, ear ringing, hearing loss, worse headache of her life, back pain. No one else at home with similar symptoms (MADHURI TROTTER) Allergies and Home Medications Allergies Coded Allergies: No Known Drug Allergies (Unverified , 10/20/12) Patient Home Medication List Home Medication List Reviewed: Yes (MADHURI TROTTER) Albuterol (Proair Hfa) 8.5 Gm Hfa.aer.ad, 8.5 GM IH Q2, (Reported) Entered as Reported by: RAMU WALLIS on 10/20/122034 Albuterol Sulfate (Ventolin Hfa) 1 Puff Puff, 2 PUFF INH Q4H PRN for WHEEZING Prescribed by: APRIL FONSECA on 08/17/19 2212 Azithromycin (Azithromycin) 250 Mg Tablet, 250 MG PO DAILY Prescribed by: ADIN MANN on 06/22/19 0022 Beclomethasone Dipropionate (Qvar) 8.7 Gm Aer.w.adap, 8.7 GM IH BID Prescribed by: BETTINA ZAVALA on 09/18/17 1540 Benzonatate (Tessalon Perles) 100 Mg Capsule, 100 MG PO Q6H PRN for COUGH Prescribed by: APRIL FONSECA on 04/02/21 1227 Benzonatate (Tessalon Perles) 100 Mg Capsule, 200 MG PO TID Prescribed by: BRETT HASSAN on 08/04/21 0104 Doxycycline Hyclate (Doxycycline Hyclate) 100 Mg Tablet, 100 MG PO BID Prescribed by: BRETT HASSAN on 08/04/21 0103 Hydralazine HCl (Hydralazine HCl) 10 Mg Tablet, 10 MG PO TID PRN for BLOOD PRESSURE Prescribed by: BRETT HASSAN on 01/14/21 2312 Ibuprofen (Ibu) 600 Mg Tablet, 600 MG PO Q6H Prescribed by: BRINA CM on 10/18/17 0948 Ibuprofen (Ibu) 600 Mg Tablet, 600 MG PO Q6H Prescribed by: TOÑO BONILLA on 12/12/18 0813 Ipratropium/Albuterol Sulfate (Iprat-Albut 0.5-3(2.5) mg/3 ml) 3 Ml Ampul.neb, 3 ML IH Q6H PRN for SHORTNESS OF BREATH Prescribed by: BETTINA ZAVALA on 09/18/17 1540 Ipratropium/Albuterol Sulfate (Iprat-Albut 0.5-3(2.5) mg/3 ml) 3 Ml Ampul.neb, 3 ML IH Q4H PRN for SHORTNESS OF BREATH Prescribed by: APRIL FONSECA on 04/02/21 1238 Naproxen (Naproxen) 500 Mg Tablet.dr, 500 MG PO BID Prescribed by: BRETT HASSAN on 06/15/21 0121 Nebulizer (Compact Compressor Nebulizer) 1 Each Each, EACH , (DME) Prescribed by: APRIL FONSECA on 08/17/19 2212 Omeprazole (Omeprazole) 40 Mg Capsule.dr, 40 MG PO DAILY Prescribed by: APRIL FONSECA on 12/15/18 0551 Omeprazole (Omeprazole) 20 Mg Tablet.dr, 20 MG PO BID Prescribed by: SHEILA WALTERS on 04/06/19 1741 Ondansetron (Ondansetron Odt) 4 Mg Tab.rapdis, 4-8 MG PO Q6H PRN for NAUSEA/VOMITING Prescribed by: APRIL FONSECA on 04/02/21 1227 Ondansetron (Ondansetron Odt) 4 Mg Tab.rapdis, 4 MG PO Q4H Prescribed by: ANDRZEJ HEWITT on 10/24/21 2221 Pantoprazole Sodium (Protonix) 40 Mg Tablet.dr, 40 MG PO DAILY Prescribed by: BRETT HASSAN on 06/15/21 0121 Pnv No.122/Iron/Folic Acid ( Multi Tablet) 1 Each Tablet, 1 EACH PO DAILY Prescribed by: BRETT HASSAN on 04/27/18 2151 Prednisone (Prednisone) 20 Mg Tab, 40 MG PO BID Prescribed by: APRIL FONSECA on 12/15/18 0535 Prednisone (Prednisone) 20 Mg Tab, 40 MG PO DAILY Prescribed by: ADIN MANN on 06/22/19 0022 Prednisone (Prednisone) 20 Mg Tab, 40 MG PO DAILY Prescribed by: BRETT HASSAN on 08/04/21 0103 Promethazine HCl/Codeine (Promethazine-Codeine Solution) 473 Ml Syrup, 5 ML PO Q6H PRN for cough/nausea Prescribed by: RODRÍGUEZ LYNCH on 10/15/20 1632 Review of Systems Review of Systems Constitutional: chills, malaise, weakness EENTM: No ear pain, No blurred vision, No double vision Respiratory: cough Cardiovascular: No chest pain, No palpitations Gastrointestinal: No abdominal pain, No diarrhea; nausea; No vomiting Genitourinary: No decreased output, No discharge; frequency Musculoskeletal: No back pain, No joint pain Skin: No change in color, No change in hair/nails (MADHURI TROTTER) All Other Systems Reviewed Negative Unless Noted: Yes (MADHURI TROTTER) Past Fddyiks-Zcjdag-Jjzvtc Hx Immunizations Up To Date Tetanus Booster (TDap): Unknown PED Vaccines UTD: No First/Initial COVID19 Vaccinat: Unvaccinated Second COVID19 Vaccination [place]: Unvaccinated Third COVID19 Vaccination Date: Unvaccinated (MADHURI TROTTER) Seasonal Allergies Seasonal Allergies: Yes (MADHURI TROTTER) Past Medical History Surgery/Hospitalization HX: COPD, asthma, htn Surgeries: No Respiratory: Yes (COVID-19 04/02/21--NO TREATMENT) Asthma, COPD Currently Using CPAP: No Currently Using BIPAP: No Cardiac: Yes (REFUSES TO TAKE MEDICATION) Hypertension Neurological: No 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 Disorders: Yes 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, 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 Sexually Transmitted Disease: Yes (HERPES,) HIV/AIDS: No Genitourinary: Yes UTI-Chronic Gastrointestinal: Yes Gastroesophageal Reflux, Hemorrhoids Musculoskeletal: No Endocrine: Yes (MORBID OBESITY) HEENT: No Loss of Vision: Denies Hearing Impairment: Denies Cancer: No Psychosocial: Yes (POLYSUBSTANCE ABUSE) Depression Integumentary: Yes Herpes Blood Disorders: No Adverse Reaction/Blood Tranf: No (MADHURI TROTTER) Family Medical History Asthma 19 FATHER G8 BROTHER Completed stroke MATERNAL GRANDFATHER Diabetes mellitus 19 FATHER 19 MOTHER Drug abuse 19 FATHER G8 BROTHER G8 BROTHER G8 BROTHER FH: breast cancer MATERNAL GRANDMOTHE ( AGE 71) Headache disorder G8 SISTER Hypertension 19 MOTHER G8 BROTHER Psychosocial problem G8 BROTHER Seizure disorder MATERNAL GRANDMOTHE SOCIAL HISTORY: -SMOKES 1 PPD -ETOH--"COUPLE OF TIMES A WEEK" -DRUGS--SNORTS COCAINE, SMOKES METH AND MARIJUANA. ALSO HX OF ECSTASY USE EXTREME NON-COMPLIANCE IN ALL ASPECTS OF CARE (MADHURI TROTTER) Physical Exam Vital Signs - First Documented 10/24/21 21:20 Temp 37.0 Pulse 101 Resp 24 B/P (MAP) 175/119 (137) Pulse Ox 98 O2 Delivery Room Air (SHEILA PICKENS MD) Capillary Refill : (MADHURI TROTTER) Height: 5'11.00" Weight: 362lbs. 0.8oz. 164.512013sp; 55.00 BMI Method:Stated General Appearance: WD/WN, no apparent distress Eyes: Bilateral Eye Normal Inspection, Bilateral Eye PERRL, Bilateral Eye EOMI HEENT: PERRL/EOMI, normal ENT inspection, TMs normal, pharynx normal Neck: non-tender, full range of motion, supple Respiratory: chest non-tender, lungs clear, normal breath sounds, no respiratory distress, no accessory muscle use Cardiovascular: regular rate, rhythm, no edema, no gallop, no JVD Gastrointestinal: normal bowel sounds, non tender, soft, no organomegaly Extremities: normal range of motion, non-tender, normal inspection, no pedal edema 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, no motor/sensory deficits, alert, normal mood/affect Skin: normal color, warm/dry (MADHURI TROTTER) Progress/Results/Core Measures Suspected Sepsis SIRS Temperature: Pulse: Respiratory Rate: Blood Pressure / Mean: (MADHURI TROTTER) Results/Orders Lab Results Laboratory Tests Test 10/24/21 21:33 10/24/21 21:43 10/24/21 21:44 Range/Units Influenza Type A (RT-PCR) Not Detected Not Detecte Influenza Type B (RT-PCR) Not Detected Not Detecte SARS-CoV-2 RNA (RT-PCR) Not Detected Not Detecte Urine Color YELLOW Urine Clarity CLEAR Urine pH 6.0 5-9 Urine Specific [place] <=1.005 1.016-1.022 Urine Protein NEGATIVE NEGATIVE Urine Glucose (UA) NEGATIVE NEGATIVE Urine Ketones NEGATIVE NEGATIVE Urine Nitrite NEGATIVE NEGATIVE Urine Bilirubin NEGATIVE NEGATIVE Urine Urobilinogen 0.2 < = 1.0 MG/DL Urine Leukocyte Esterase NEGATIVE NEGATIVE Urine RBC (Auto) 1+ H NEGATIVE Urine RBC 0-2 /HPF Urine WBC NONE /HPF Urine Squamous Epithelial Cells 2-5 /HPF Urine Crystals NONE /LPF Urine Bacteria NEGATIVE /HPF Urine Casts NONE /LPF Urine Mucus NEGATIVE /LPF Urine Culture Indicated NO Urine Test NEGATIVE NEGATIVE Glucometer 83 70-110 MG/DL (SHEILA PICKENS MD) Medications Given in ED Current Medications Medications Dose Ordered Sig/Violette Route Start Time Stop Time Status Last Admin Dose Admin Acetaminophen 1,000 mg ONCE ONCE PO 10/24/21 21:45 10/24/21 21:46 DC 10/24/21 21:42 1,000 MG Ondansetron HCl 4 mg ONCE ONCE PO 10/24/21 21:45 10/24/21 21:46 DC 10/24/21 21:42 4 MG (SHEILA PICKENS MD) Vital Signs/I&O 10/24/21 10/24/21 21:20 22:25 Temp 37.0 Pulse 101 95 Resp 24 22 B/P (MAP) 175/119 (137) 161/703 Pulse Ox 98 99 O2 Delivery Room Air Room Air (SHEILA PICKENS MD) Vital Signs/I&O Capillary Refill : (TROTTER,MADHURI A PA) Departure Communication (PCP) Patient presents ED flulike symptoms. She denies diabetes. 83 blood sugar. Has been urinating frequently. Urinalysis was negative for infection. Does not appear dehydrated. Moist mucous membranes. Exam otherwise benign. COVID influenza negative. Was placed on prednisone today with a history of asthma. No wheezing, rhonchi or crackles noted. She was given Zofran for her dry heaving as well as Tylenol for the body aches and pains. She was hypertensive and currently on metoprolol but did not take her dose today. She does not appear altered or confused. No meningeal signs. No abdominal tenderness. No current chest pain. This appears to be more viral at this time. If any worsening symptoms such as chest pain, shortness of breath, not able to eat or drink, continues vomiting to return back to ED for further evaluation and lab work. She agrees with plan of action. Provided work note. Patient blood pressure improved to 169/103. Continue monitoring blood pressure at home. Denies worst headache of her life. No focal neural deficits (MADHURI TROTTER) Impression Primary Impression: Viral syndrome Disposition: 01 HOME, SELF-CARE Condition: Critical Departure-Patient Inst. Decision time for Depature: 22:21 (MADHURI TROTTER) Referrals: BRINA CM MD (PCP/Family) Primary Care Physician Patient Instructions: Viral Syndrome (DC) Add. Discharge Instructions: Recommend taking Tylenol ibuprofen for body aches and pains. Recommend importance of oral hydration. If any worsening symptoms such as chest pain, shortness of breath, increased weakness not able to eat or drink to return back to ED All discharge instructions reviewed with patient and/or family. Voiced understanding. Scripts Ondansetron (Ondansetron Odt) 4 Mg Tab.rapdis 4 MG PO Q4H, #8 TAB Prov: MADHURI TROTTER 10/24/21 Work/School Note: Work Release Form Date Seen in the Emergency Department: Oct 24, 2021 Return to Work: Oct 29, 2021 ATTENDING PHYSICIAN NOTE: I was physically present as attending physician in the emergency department during the care of this patient, but I was not directly involved in the decision making or delivery of care for this patient. (SHEILA PICKENS MD) MADHURI TROTTER Oct 24, 2021 21:34 SHEILA PICKENS MD Oct 25, 2021 04:31
[2021-10-24] MEDS ORDERED: ACETAMINOPHEN 500 MG TAB (TYLENOL) PO ONE (21:45)
[2021-10-24] MEDS ORDERED: ONDANSETRON 4 MG (ZOFRAN) ORAL DISSOLVE TAB PO ONE (21:45)
[2021-10-24 21:53] LABS: BILIRUBIN,URINE NEGATIVE (NEGATIVE); CLARITY,URINE CLEAR; COLOR,URINE YELLOW; GLUCOSE, URINE (UA) NEGATIVE (NEGATIVE); KETONES,URINE NEGATIVE (NEGATIVE); LEUKOCYTE ESTERASE ,URINE NEGATIVE (NEGATIVE); NITRITE,URINE NEGATIVE (NEGATIVE); PROTEIN,URINE NEGATIVE (NEGATIVE)
[2021-10-24 22:12] LABS: BACTERIA,URINE NEGATIVE /HPF; RBC,URINE 0-2 /HPF
[2021-10-24] MEDS ORDERED: ONDA4TAB11 PO (22:21)
[2021-10-24 22:25] VITALS: BP 161/703
== END 2021-10-24 22:32 | disposition home or self-care (01) ==
LOC: EDUNIT# 21:06 → ER 21:08
DX: B34.9 Viral infection, unspecified (principal); J44.9 Chronic obstructive pulmonary disease, unspecified; E66.01 Morbid (severe) obesity due to excess calories; Z68.43 Body mass index [BMI] 50.0-59.9, adult; Z20.822 Contact with and (suspected) exposure to COVID-19; Z28.310 Unvaccinated for COVID-19
CPT/HCPCS: 81000; 82947; 84703; 87636

== ENCOUNTER 2022-01-11 23:38 | Inpatient (IN) | payer MEDICAID ==
[~2022-01-11] VITALS: Ht 173 cm; Wt 173.0 kg
[2022-01-11] MEDS ORDERED: TIOT4MIS2 INH (23:50)
[2022-01-11] MEDS ORDERED: PRD50T PO (23:50)
[2022-01-12] VITALS (8 sets, daily range): BP systolic 136–188; BP diastolic 76–98
[2022-01-12] MEDS ORDERED: methylPREDNISolone 125 MG (Solu-MEDROL) VIAL IVP ONE
[2022-01-12] MEDS ORDERED: NS IV 1000 ML 1,000 ML IV SCH
[2022-01-12] MEDS: MAGNESIUM 1 GM/100 ML IVPB 100 ML IV SCH ×2 (00:01→01:01)
[2022-01-12 00:02] LABS: BASOPHILS % (AUTO) 0 % (0-10); EOSINOPHILS % (AUTO) 0 % (0-10); HEMATOCRIT 41 % (35-52); HEMOGLOBIN 12.6 g/dL (11.5-16.0); LYMPHOCYTES # (AUTO) 1.2 10^3/uL (1.0-4.0); LYMPHOCYTES % (AUTO) 11 % (12-44); MEAN CORPUSCULAR HEMOGLOBIN 26 pg (25-34); MEAN CORPUSCULAR HGB CONC 31 g/dL (32-36); MEAN CORPUSCULAR VOLUME 85 fL (80-99); MEAN PLATELET VOLUME 8.8 fL (9.0-12.2); MONOCYTES # (AUTO) 0.7 10^3/uL (0.0-1.0); MONOCYTES % (AUTO) 6 % (0-12); NEUTROPHILS # (AUTO) 9.6 10^3/uL (1.8-7.8); NEUTROPHILS % (AUTO) 83 % (42-75); PLATELET COUNT 315 10^3/uL (130-400); WHITE BLOOD COUNT 11.5 10^3/uL (4.3-11.0)
[2022-01-12 00:20] LABS: POTASSIUM 3.8 MMOL/L (3.6-5.0)
[2022-01-12 00:26] LABS: CREATININE SERUM 0.89 MG/DL (0.60-1.30)
[2022-01-12 00:28] LABS: MAGNESIUM 1.8 MG/DL (1.6-2.4)
[2022-01-12] MEDS ORDERED: RT-ALBUTEROL SULF 2.5 MG/3 ML PRE-MIX VIAL INH STA (02:02)
--- NOTE | 2022-01-12 02:02 | ED Respiratory ---
General Chief Complaint: Respiratory Problems Stated Complaint: SOB Nursing Triage Note: brought in by [facility] for increased soa x2 days worse today. started on steroids/breathing treatments without improvement. Source: patient, EMS Exam Limitations: no limitations History of Present Illness Date Seen by Provider: Jan 11, 2022 Time Seen by Provider: 23:39 Initial Comments This 36-year-old young lady presents to the emergency room with 2 days of worsening shortness of breath and wheezing. She does have history of asthma for which she takes multiple medications. Nebulizer treatments and breathing treatments at home have not been effective. She was seen at the [facility] clinic earlier today and was started on prednisone and azithromycin. She denies any fever or other symptoms of acute illness. She does smoke. She arrives via EMS and receiving a nebulizer treatment. Allergies and Home Medications Allergies Coded Allergies: No Known Drug Allergies (Unverified , 10/20/12) Patient Home Medication List Home Medication List Reviewed: Yes Albuterol (Proair Hfa) 8.5 Gm Hfa.aer.ad, 8.5 GM IH Q2, (Reported) Entered as Reported by: RAMU WALLIS on 10/20/122034 Albuterol Sulfate (Ventolin Hfa) 1 Puff Puff, 2 PUFF INH Q4H PRN for WHEEZING Prescribed by: APRIL FONSECA on 08/17/192211 Beclomethasone Dipropionate (Qvar) 8.7 Gm Aer.w.adap, 8.7 GM IH BID Prescribed by: BETTINA ZAVALA on 09/18/17 1540 Ibuprofen (Ibu) 600 Mg Tablet, 600 MG PO Q6H Prescribed by: BRINA HA on 10/18/17 0948 Ipratropium/Albuterol Sulfate (Iprat-Albut 0.5-3(2.5) mg/3 ml) 3 Ml Ampul.neb, 3 ML IH Q6H PRN for SHORTNESS OF BREATH Prescribed by: BETTINA ZAVALA on 09/18/17 1540 Nebulizer (Compact Compressor Nebulizer) 1 Each Each, EACH MC, (DME) Prescribed by: APRIL FONSECA on 08/17/192211 Omeprazole (Omeprazole) 40 Mg Capsule.dr, 40 MG PO DAILY Prescribed by: APRIL FONSECA on 12/15/18 0551 Ondansetron (Ondansetron Odt) 4 Mg Tab.rapdis, 4 MG PO Q4H Prescribed by: ANDRZEJ HEWITT on 10/24/212220 Pantoprazole Sodium (Protonix) 40 Mg Tablet.dr, 40 MG PO DAILY Prescribed by: BRETT HASSAN on 06/15/21 0121 Pnv No.122/Iron/Folic Acid ( Multi Tablet) 1 Each Tablet, 1 EACH PO DAILY Prescribed by: BRETT HASSAN on 04/27/182150 Prednisone (Prednisone) 50 Mg Tab, (Reported) Entered as Reported by: MALI COOPER on 01/11/222349 Last Action: New Order Tiotropium [place] (Spiriva Respimat 2.5MCG/ACTUATION) 2.5 Mcg/Actuation Mist.inhal, (Reported) Entered as Reported by: MALI COOPER on 01/11/222349 Last Action: New Order Discontinued Medications Azithromycin (Azithromycin) 250 Mg Tablet, 250 MG PO DAILY Discontinued Reason: No Longer Taking Prescribed by: ADIN MANN on 06/22/19 0022 Last Action: Discontinued Benzonatate (Tessalon Perles) 100 Mg Capsule, 100 MG PO Q6H PRN for COUGH Discontinued Reason: No Longer Taking Prescribed by: APRIL FONSECA on 04/02/21 1227 Last Action: Discontinued Benzonatate (Tessalon Perles) 100 Mg Capsule, 200 MG PO TID Discontinued Reason: No Longer Taking Prescribed by: BRETT HASSAN on 08/04/21 010 Last Action: Discontinued Doxycycline Hyclate (Doxycycline Hyclate) 100 Mg Tablet, 100 MG PO BID Discontinued Reason: No Longer Taking Prescribed by: BRETT HASSAN on 08/04/21 010 Last Action: Discontinued Hydralazine HCl (Hydralazine HCl) 10 Mg Tablet, 10 MG PO TID PRN for BLOOD PRESS URE Discontinued Reason: No Longer Taking Prescribed by: BRETT HASSAN on 01/14/21 2312 Last Action: Discontinued Ibuprofen (Ibu) 600 Mg Tablet, 600 MG PO Q6H Discontinued Reason: No Longer Taking Prescribed by: TOÑO BONILLA on 12/12/18 0813 Last Action: Discontinued Ipratropium/Albuterol Sulfate (Iprat-Albut 0.5-3(2.5) mg/3 ml) 3 Ml Ampul.neb, 3 ML IH Q4H PRN for SHORTNESS OF BREATH Discontinued Reason: No Longer Taking Prescribed by: APRIL FONSECA on 04/02/21 1238 Last Action: Discontinued Naproxen (Naproxen) 500 Mg Tablet.dr, 500 MG PO BID Discontinued Reason: No Longer Taking Prescribed by: BRETT HASSAN on 06/15/21 0121 Last Action: Discontinued Omeprazole (Omeprazole) 20 Mg Tablet.dr, 20 MG PO BID Discontinued Reason: No Longer Taking Prescribed by: SHEILA WALTERS on 04/06/19 1741 Last Action: Discontinued Ondansetron (Ondansetron Odt) 4 Mg Tab.rapdis, 4-8 MG PO Q6H PRN for NAUSEA/VOMITING Discontinued Reason: No Longer Taking Prescribed by: APRIL FONSECA on 04/02/21 1227 Last Action: Discontinued Prednisone (Prednisone) 20 Mg Tab, 40 MG PO BID Discontinued Reason: No Longer Taking Prescribed by: APRIL FONSECA on 12/15/18 0535 Last Action: Discontinued Prednisone (Prednisone) 20 Mg Tab, 40 MG PO DAILY Discontinued Reason: No Longer Taking Prescribed by: ADIN MANN on 06/22/19 0022 Last Action: Discontinued Prednisone (Prednisone) 20 Mg Tab, 40 MG PO DAILY Discontinued Reason: No Longer Taking Prescribed by: BRETT HASSAN on 08/04/21 0103 Last Action: Discontinued Promethazine HCl/Codeine (Promethazine-Codeine Solution) 473 Ml Syrup, 5 ML PO Q6H PRN for cough/nausea Discontinued Reason: No Longer Taking Prescribed by: RODRÍGUEZ LYNCH on 10/15/20 1632 Last Action: Discontinued Review of Systems Review of Systems Constitutional: no symptoms reported EENTM: other (Postnasal drainage) Respiratory: see HPI Cardiovascular: no symptoms reported Gastrointestinal: no symptoms reported Genitourinary: no symptoms reported : No Musculoskeletal: no symptoms reported Skin: no symptoms reported Psychiatric/Neurological: No Symptoms Reported Hematologic/Lymphatic: No Symptoms Reported Past Ivhfrgf-Idnplj-Duewsi Hx Patient Social History Tobacco Use?: Yes Tobacco type used: Cigarettes Smoking Status: Current Everyday Smoker Substance use?: Yes Substance type: Methamphetamine, Marijuana Alcohol Use?: Yes Alcohol Frequency: Once in a while Pt feels they are or have been: No Immunizations Up To Date Tetanus Booster (TDap): Unknown PED Vaccines UTD: No First/Initial COVID19 Vaccinat: Unvaccinated Second COVID19 Vaccination [place]: Unvaccinated Third COVID19 Vaccination Date: Unvaccinated Seasonal Allergies Seasonal Allergies: Yes Past Medical History Surgery/Hospitalization HX: COPD, asthma, htn Surgeries: No Respiratory: Yes (COVID-19 04/02/21--NO TREATMENT) Asthma, COPD Currently Using CPAP: No Currently Using BIPAP: No Cardiac: Yes (REFUSES TO TAKE MEDICATION) Hypertension Neurological: No 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 Disorders: Yes 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, 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 Sexually Transmitted Disease: Yes (HERPES,) HIV/AIDS: No Genitourinary: Yes UTI-Chronic Gastrointestinal: Yes Gastroesophageal Reflux, Hemorrhoids Musculoskeletal: No Endocrine: Yes (MORBID OBESITY) HEENT: No Loss of Vision: Denies Hearing Impairment: Denies Cancer: No Psychosocial: Yes (POLYSUBSTANCE ABUSE) Depression Integumentary: Yes Herpes Blood Disorders: No Adverse Reaction/Blood Tranf: No Family Medical History Asthma 19 FATHER G8 BROTHER Completed stroke MATERNAL GRANDFATHER Diabetes mellitus 19 FATHER 19 MOTHER Drug abuse 19 FATHER G8 BROTHER G8 BROTHER G8 BROTHER FH: breast cancer MATERNAL GRANDMOTHE ( AGE 71) Headache disorder G8 SISTER Hypertension 19 MOTHER G8 BROTHER Psychosocial problem G8 BROTHER Seizure disorder MATERNAL GRANDMOTHE SOCIAL HISTORY: -SMOKES 1 PPD -ETOH--"COUPLE OF TIMES A WEEK" -DRUGS--SNORTS COCAINE, SMOKES METH AND MARIJUANA. ALSO HX OF ECSTASY USE EXTREME NON-COMPLIANCE IN ALL ASPECTS OF CARE Physical Exam Vital Signs - First Documented 01/11/22 23:43 Temp 36.6 Pulse 110 Resp 24 B/P (MAP) 156/111 (126) Pulse Ox 94 O2 Delivery OxyMask Capillary Refill : Less Than 3 Seconds Height: 5'11.00" Weight: 362lbs. 0.8oz. 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, no motor/sensory deficits, alert, normal mood/affect, oriented x 3 Skin: normal color, warm/dry Progress/Results/Core Measures Suspected Sepsis SIRS Temperature: Pulse: 110 Respiratory Rate: 24 Laboratory Tests 01/11/22 23:56: White Blood Count 11.5H Blood Pressure 156 /111 Mean: 126 Laboratory Tests 01/11/22 23:56: Creatinine 0.89, Platelet Count 315 Results/Orders Lab Results Laboratory Tests Test 01/11/22 23:56 01/12/22 00:32 Range/Units White Blood Count 11.5 H 4.3-11.0 10^3/uL Red Blood Count 4.82 3.80-5.11 10^6/uL Hemoglobin 12.6 11.5-16.0 g/dL Hematocrit 41 35-52 % Mean Corpuscular Volume 85 80-99 fL Mean Corpuscular Hemoglobin 26 25-34 pg Mean Corpuscular Hemoglobin Concent 31 L 32-36 g/dL Red Cell Distribution Width 13.4 10.0-14.5 % Platelet Count 315 130-400 10^3/uL Mean Platelet Volume 8.8 L 9.0-12.2 fL Immature Granulocyte % (Auto) 0 % Neutrophils (%) (Auto) 83 H 42-75 % Lymphocytes (%) (Auto) 11 L 12-44 % Monocytes (%) (Auto) 6 0-12 % Eosinophils (%) (Auto) 0 0-10 % Basophils (%) (Auto) 0 0-10 % Neutrophils # (Auto) 9.6 H 1.8-7.8 10^3/uL Lymphocytes # (Auto) 1.2 1.0-4.0 10^3/uL Monocytes # (Auto) 0.7 0.0-1.0 10^3/uL Eosinophils # (Auto) 0.0 0.0-0.3 10^3/uL Basophils # (Auto) 0.0 0.0-0.1 10^3/uL Immature Granulocyte # (Auto) 0.1 0.0-0.1 10^3/uL Sodium Level 140 135-145 MMOL/L Potassium Level 3.8 3.6-5.0 MMOL/L Chloride Level 107 98-107 MMOL/L Carbon Dioxide Level 22 21-32 MMOL/L Anion Gap 11 5-14 MMOL/L Blood Urea Nitrogen 7 7-18 MG/DL Creatinine 0.89 0.60-1.30 MG/DL Estimat Glomerular Filtration Rate 87 BUN/Creatinine Ratio 8 Glucose Level 185 H 70-105 MG/DL Calcium Level 9.0 8.5-10.1 MG/DL Magnesium Level 1.8 1.6-2.4 MG/DL C-Reactive Protein High Sensitivity 2.46 H 0.00-0.50 MG/DL Serum Test, Qualitative NEGATIVE NEGATIVE Influenza Type A (RT-PCR) Not Detected Not Detecte Influenza Type B (RT-PCR) Not Detected Not Detecte SARS-CoV-2 RNA (RT-PCR) Not Detected Not Detecte My Orders Orders - SHEILA PICKENS MD Basic Metabolic Panel (01/11/22 23:51) Cbc With Automated Diff (01/11/22:51) Hs C Reactive Protein (01/11/22 23:51) Magnesium (01/11/22 23:51) Ed Iv/Invasive Line Start (01/11/22 23:51) Ns Iv 1000 Ml (Sodium Chloride 0.9%) (01/12/22 00:00) Magnesium 1 Gm/100 Ml Ivpb (Magnesium [place]cker (01/12/22 00:00) Methylprednisolone Sod Succ (Solu-Medrol (01/12/22 00:00) Albuterol/Ipra Inhalation Soln (Duoneb I (01/12/22 00:00) Svn Small Volume Nebulizer (01/11/22 23:51) Covid 19 Inhouse Test (01/11/22 23:51) Influenza A And B By Pcr (01/11/22 23:51) Hcg,Qualitative Serum (01/11/22:51) Chest 1 View, Ap/Pa Only (01/12/22 00:01) Medications Given in ED Current Medications Medications Dose Ordered Sig/Violette Route Start Time Stop Time Status Last Admin Dose Admin Albuterol/ Ipratropium 3 ml ONCE ONCE INH 01/12/22 00:00 01/12/22 00:01 DC 01/12/22 00:01 3 ML Methylprednisolone Sodium Succinate 125 mg ONCE ONCE IVP 01/12/22 00:00 01/12/22 00:01 DC 01/12/22 00:01 125 MG Vital Signs/I&O 01/11/22 01/11/22 23:43 23:43 Temp 36.6 Pulse 110 Resp 24 B/P (MAP) 156/111 (126) Pulse Ox 94 O2 Delivery OxyMask OxyMask Capillary Refill : Less Than 3 Seconds Blood Pressure Mean: 126 Progress Note : Progress Note Viral swabs were negative. Chest x-ray was unremarkable. She received an additional DuoNeb treatment and Solu-Medrol but was still quite tight and wheezy. Hour-long nebulizer treatment was ordered and admission was sought. Diagnostic Imaging Diagonstic Imaging: Xray Plain Films/CT/US/NM/MRI: chest Comments Chest x-ray viewed by me and report reviewed. See report below: NAME: JUDY DEVLIN [facility] REC#: [id number] PT STATUS: ADM Mirian : 1985 PHYSICIAN: SHEILA PICKENS MD ADMIT DATE: 01/12/22 Draft Date of Exam:01/12/22 CHEST 1 VIEW, AP/PA ONLY INDICATION: Shortness of breath Portable chest 11:58 PM Heart size and pulmonary vascularity are normal. Lungs are clear. There are no effusions or pneumothoraces. IMPRESSION: No acute abnormalities in the chest. Dictated on workstation # [id number] Dict: 01/12/22 0702 Trans: 01/12/22 0723 [facility] [id number] Interpreted by: ADIN MENESES MD Departure Communication (Admissions) Time/Spoke to Admitting Phy: 01:55 Dr. Ha Impression Primary Impression: Asthma exacerbation Qualified Codes: J45.901 - Unspecified asthma with (acute) exacerbation Disposition: ADMITTED INPATIENT Condition: Improved Admissions Decision to Admit Reason: Admit from ER (General) Decision to Admit/Date: Jan 12, 2022 Time/Decision to Admit Time: 01:55 Departure-Patient Inst. Referrals: BRINA HA MD (PCP/Family) Primary Care Physician SHEILA PICKENS MD Jan 12, 2022 02:02
[2022-01-12] MEDS ORDERED: RT-ALBUTEROL/IPRATROPIUM 3 ML (DUONEB) VIAL INH ONE ×2 (02:15)
[2022-01-12] MEDS ORDERED: RT-ALBUTEROL SULF 2.5 MG/3 ML PRE-MIX VIAL INH PRN (02:45)
[2022-01-12] MEDS ORDERED: CATHETER FLUSH 10 ML SYR IVP PRN (02:45)
[2022-01-12] MEDS ORDERED: AZITHROMYCIN 250 MG TAB (ZITHROMAX) PO SCH (03:00)
[2022-01-12] MEDS: AZITHROMYCIN 250 MG TAB (ZITHROMAX) PO SCH ×2 (05:58→08:39)
[2022-01-12] MEDS: CATHETER FLUSH 10 ML SYR IVP SCH ×3 (06:17→23:53)
[2022-01-12] MEDS ORDERED: predniSONE 20 MG TAB PO SCH (07:00)
--- NOTE | 2022-01-12 07:24 | Diagnostic Imaging Report ---
INDICATION: Shortness of breath Portable chest 11:58 PM Heart size and pulmonary vascularity are normal. Lungs are clear. There are no effusions or pneumothoraces. IMPRESSION: No acute abnormalities in the chest. Dictated by: Dictated on workstation # [id number]
[2022-01-12] MEDS: RT-ALBUTEROL/IPRATROPIUM 3 ML (DUONEB) VIAL INH SCH ×5 (07:44→21:00)
[2022-01-12] MEDS: FAMOTIDINE 20 MG (PEPCID) TABLET PO SCH ×2 (08:39→20:29)
[2022-01-12] MEDS ORDERED: ACETAMINOPHEN 325 MG TABLET PO PRN (10:30)
[2022-01-12] MEDS ORDERED: ACETAMINOPHEN 325 MG TABLET ONE (10:48)
[2022-01-12] MEDS ORDERED: AZIT250T12 PO (11:42)
[2022-01-12] MEDS ORDERED: ALBU18HF2 INH (11:42)
[2022-01-12] MEDS ORDERED: IBUP-2473 PO (11:42)
[2022-01-12] MEDS ORDERED: IPRA3AMP31 IH (11:42)
[2022-01-12] MEDS ORDERED: FLUT1BLS13 INH (11:42)
[2022-01-12] MEDS ORDERED: L.AC1CAP6 PO (11:42)
[2022-01-12] MEDS ORDERED: ASPI325T32 PO (11:42)
[2022-01-12] MEDS ORDERED: LORATADINE (CLARITIN) 10 MG TAB PO NR (12:45)
[2022-01-12] MEDS: methylPREDNISolone 40 MG/ML (Solu-MEDROL) VIAL IV SCH ×3 (12:57→23:49)
--- NOTE | 2022-01-12 14:10 | History & Physical-Hospitalist ---
ALYLEILANI Doug 01/12/22 1410: History of Present Illness HPI/Chief Complaint Patient is a 36 yo F admitted for asthma exacerbation after 2 days of worsening SOB and wheezing. She has a history of asthma and hypertension for which she takes multiple medications. She has been treated using a nebulizer, albuterol sulfate, and albuterol/ipratropium. She states that these treatments only help for a short while before she begins to feel SOB again. She was seen yesterday at [facility] where she was started on prednisone and azithromycin. She is a current everyday smoker and admits to methamphetamine and marijuana use. Her initial chest x-ray was unremarkable and viral swabs were negative. ER logged a suspicion of sepsis with a pulse of 110, RR of 24, WBC of 11.5, and a possible source of infection from the lungs. She indicates SOB on exertion, headache, ch est pain from coughing, nausea w/o vomiting, wheezing, minor chills, dizziness during coughing spells. She describes her cough as non-productive. Source: patient, RN/MD, old records Exam Limitations: no limitations Date Seen 01/12/22 Time Seen by a Provider: 09:20 Attending Physician Darleen Ha MD PCP Admitting Physician: Darleen Ha MD Attending Physician: Gladis Betancur DO Referring Physician Date of Admission Jan 12, 2022 at 02:00 Home Medications & Allergies Home Medications Reviewed patient Home Medication Reconciliation performed by pharmacy medication reconciliations solids control technician and/or nursing. Patients Allergies have been reviewed. Allergies Allergies Coded Allergies No Known Drug Allergies (Unverified10/20/12) Past Wmdbhkn-Uiqryv-Zhvmhi Hx Patient Social History Tobacco Use?: Yes Tobacco type used: Cigarettes Smoking Status: Current Everyday Smoker Smokeless Tobacco Frequency: Never a User Use of E-Cig and/or Vaping dev: No Substance use?: Yes Substance type: Methamphetamine, Marijuana, Other (cocaine) Substance frequency: Daily Alcohol Use?: No Alcohol Frequency: Couple times a week Pt feels they are or have been: No Immunizations Up To Date First/Initial COVID19 Vaccinat: Unvaccinated Second COVID19 Vaccination [place]: Unvaccinated Tetanus Booster (TDap): Unknown Hepatitis A: Yes Hepatitis B: No PED Vaccines UTD: No Seasonal Allergies Seasonal Allergies: Yes Current Status status: No Advance Directives: No Communicates: Verbally Primary Language: Divehi Preferred Spoken Language: Divehi Is interpretation needed?: No Sensory deficits: Vision impairment Implanted or Applied Medical D: None Past Medical History Asthma, COPD Currently Using CPAP: No Currently Using BIPAP: No 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 Sexually Transmitted Disease: Yes (HERPES,) HIV/AIDS: No UTI-Chronic Gastroesophageal Reflux, Hemorrhoids Loss of Vision: Denies Hearing Impairment: Denies Depression Herpes Blood Disorders: No Adverse Reaction/Blood Tranf: No COPD Term Vaginal Delivery - 2005 Hemorrhage requiring blood transfusion - 2005 SAB x2 at 8 wks - 2008, 2016 Vaginal Delivery at 36 wks - 2014 Preeclampsia - 2014 Hx of abnormal PAP with + HPV; s/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 Hx Gonorrhea, Chlamydia, Trich COPD Asthma HTN Tobacco Abuse THC Abuse Past Surgical History: abdominal laparoscopy intestine surgery as an infant Family Medical History Asthma 19 FATHER G8 BROTHER Completed stroke MATERNAL GRANDFATHER Diabetes mellitus 19 FATHER 19 MOTHER Drug abuse 19 FATHER G8 BROTHER G8 BROTHER G8 BROTHER FH: breast cancer MATERNAL GRANDMOTHE ( AGE 71) Headache disorder G8 SISTER Hypertension 19 MOTHER G8 BROTHER Psychosocial problem G8 BROTHER Seizure disorder MATERNAL GRANDMOTHE SOCIAL HISTORY: -SMOKES 1 PPD -ETOH--"COUPLE OF TIMES A WEEK" -DRUGS--SNORTS COCAINE, SMOKES METH AND MARIJUANA. ALSO HX OF ECSTASY USE EXTREME NON-COMPLIANCE IN ALL ASPECTS OF CARE Review of Systems Constitutional: see HPI, chills (Minor), dizziness EENTM: no symptoms reported; No blurred vision, No double vision, No vision loss Respiratory: see HPI, cough, dyspnea on exertion, short of breath, wheezing Cardiovascular: no symptoms reported, chest pain Gastrointestinal: no symptoms reported; No abdominal pain; nausea; No vomiting Genitourinary: no symptoms reported Musculoskeletal: see HPI Skin: no symptoms reported Psychiatric/Neurological: No Symptoms Reported Physical Exam Physical Exam Vital Signs Vital Signs - First Documented 01/11/22 23:43 Temp 36.6 Pulse 110 Resp 24 B/P (MAP) 156/111 (126) Pulse Ox 94 O2 Delivery OxyMask Capillary Refill : Less Than 3 Seconds Height, Weight, BMI Height: 5'11.00" Weight: 362lbs. 0.8oz. [id number]; 56.19 BMI Method:Stated General Appearance: No Apparent Distress, WD/WN, Obese Neck: Full Range of Motion, Normal Inspection, Non Tender; No Carotid Bruit, No JVD Respiratory: Chest Non Tender, No Accessory Muscle Use, No Respiratory Distress, Wheezing (Bilateral in all lung obone) Cardiovascular: Regular Rate, Rhythm, No Edema, No Gallop, No JVD, No Murmur, Normal Peripheral Pulses Gastrointestinal: Normal Bowel Sounds, No Organomegaly, Non Tender, Soft Extremity: Normal Inspection, Non Tender, No Calf Tenderness Neurologic/Psychiatric: Alert, Oriented x3 Skin: Normal Color, Warm/Dry Results Results/Procedures Labs Laboratory Tests 01/11/22 23:56 Patient resulted labs reviewed. Imaging Date of Exam:01/12/22 CHEST 1 VIEW, AP/PA ONLY INDICATION: Shortness of breath Portable chest 11:58 PM Heart size and pulmonary vascularity are normal. Lungs are clear. There are no effusions or pneumothoraces. IMPRESSION: No acute abnormalities in the chest. Dictated by: Dictated on workstation # [id number] Dict: 01/12/2202 Trans: 01/12/2245 [facility] [id number] Interpreted by: ADIN MENESES MD Electronically signed by: ADIN MENESES MD 01/12/22 0845 Meds As noted in medications list Assessment/Plan Admission Diagnosis Asthma exacerbation Admission Status: Observation Assessment and Plan Asthma exacerbation - patient to be treated with albuterol sulfate as well as albuterol ipratropium. Her home meds can be restarted which include spiriva and advaire. IV steroids (solumedrol) needed for improvement of lung function. Azithromycin continued. Hypertension - Patient can be started on HCTZ but may need hydralazine or labetalol due to hypertensive urgency. Chronic tobacco use - to be counseled on effective ways to quit smoking upon improvement of her more concerning symptoms Substance abuse - substance abuse counseling may be warranted Diagnosis/Problems Diagnosis/Problems (1) Asthma exacerbation Status: Acute (2) HTN (hypertension) Status: Acute (3) Chest wall pain Status: Acute (4) Heavy smoker Status: Acute (5) Marijuana use, continuous Status: Acute (6) Illicit drug use Status: Acute GLADIS BETANCUR DO 01/13/22 0535: History of Present Illness HPI/Chief Complaint Chief complaint: Status asthmaticus HPI: This is a 36-year-old female of [facility] who has a past medical history of asthma and smoking who presents to the ER with status asthmaticus. Patient is still with significant wheezing so I will place her back on Solu-Medrol IV and discontinue the prednisone. Multiple meds were added. Source: patient, RN/MD Exam Limitations: no limitations Past Heseezm-Cbpbxd-Omckhi Hx Patient Social History Marrital Status: single Employed/Student: employed Smoking Status: Current Everyday Smoker Past Medical History Asthma Family Medical History Asthma 19 FATHER G8 BROTHER Completed stroke MATERNAL GRANDFATHER Diabetes mellitus 19 FATHER 19 MOTHER Drug abuse 19 FATHER G8 BROTHER G8 BROTHER G8 BROTHER FH: breast cancer MATERNAL GRANDMOTHE ( AGE 72) Headache disorder G8 SISTER Hypertension 19 MOTHER G8 BROTHER Psychosocial problem G8 BROTHER Seizure disorder MATERNAL GRANDMOTHE Review of Systems Constitutional: see HPI Physical Exam Physical Exam General Appearance: No Apparent Distress Eyes: Right Eye Normal Inspection, Right Eye PERRL HEENT: PERRL/EOMI, TMs Normal, Normal ENT Inspection, Pharynx Normal, Moist Mucous Membranes Neck: Full Range of Motion, Normal Inspection, Non Tender Respiratory: Chest Non Tender, No Respiratory Distress, Accessory Muscle Use, Wheezing (Bilateral in all lung boone) Cardiovascular: Regular Rate, Rhythm, No Edema, No Gallop, No JVD, No Murmur, Normal Peripheral Pulses Gastrointestinal: Normal Bowel Sounds, No Organomegaly, No Pulsatile Mass, Non Tender, Soft Back: Normal Inspection, No CVA Tenderness, No Vertebral Tenderness Extremity: Normal Capillary Refill, Normal Inspection, Normal Range of Motion, Non Tender, No Calf Tenderness, No Pedal Edema Neurologic/Psychiatric: Alert, Oriented x3, No Motor/Sensory Deficits, Normal Mood/Affect Skin: Normal Color, Warm/Dry Lymphatic: No Adenopathy Assessment/Plan Admission Diagnosis Status asthmaticus Smoker Admission Status: Observation Supervisory-Addendum Brief Verification & Attestation Participated in pt care: history, MDM, physical Personally performed: exam, history, MDM, supervision of care Care discussed with: Medical Student Procedures: n/a Results interpretation: Verified all documentation Verification and Attestation of Medical Student E/M Service A medical student performed and documented this service in my presence. I revi ewed and verified all information documented by the medical student and made modifications to such information, when appropriate. I personally performed the physical exam and medical decision making. Gladis Betancur, Jan 13, 2022,05:34 LEILANI LU Jan 12, 2022 14:10 GLADIS BETANCUR DO Jan 13, 2022 05:35
[2022-01-12] MEDS ORDERED: LOPERAMIDE 2 MG (IMODIUM) TABLET PO PRN (17:45)
[2022-01-12] MEDS ORDERED: CALCIUM CARBONATE 500 MG (TUMS) TAB.CHEW PO PRN (17:45)
[2022-01-12] MEDS ORDERED: diphenhydrAMINE 25 MG TAB (BENADRYL) PO PRN (17:45)
[2022-01-12] MEDS ORDERED: ENOXAPARIN 40 MG/0.4 ML (LOVENOX) SYR SC SCH (17:45)
[2022-01-12] MEDS ORDERED: ONDANSETRON 4 MG/2 ML (SDV) Z0FRAN IVP PRN (17:45)
[2022-01-12] MEDS ORDERED: DOCUSATE SODIUM 100 MG (COLACE) CAP PO PRN (17:45)
[2022-01-12] MEDS ORDERED: LACTULOSE SYRUP 10GM/15ML (ENULOSE) 30ML UDC PO PRN (17:45)
[2022-01-12] MEDS ORDERED: ACETAMINOPHEN 500 MG TAB (TYLENOL) PO PRN (17:45)
[2022-01-12] MEDS ORDERED: BISACODYL 10 MG SUPP (DULCOLAX) PR PRN (17:45)
[2022-01-12] MEDS ORDERED: ENOXAPARIN 60 MG/0.6 ML (LOVENOX) SYR SC SCH (18:30)
[2022-01-12] MEDS: MONTELUKAST 10 MG (SINGULAIR) TAB PO SCH (20:29)
[2022-01-12] MEDS: polyethylene glycoL POWDER 17 GM (MIRALAX) PACK PO SCH (20:30)
[2022-01-12] MEDS: SENNA W/DOCUSATE (SENOKOT S) TABLET PO SCH (20:30)
[2022-01-12] MEDS: RT--FLUTICASONE/SALMETEROL 113-14 (AIRDUO RespiCLICK) IH SCH (21:00)
[2022-01-12] MEDS ORDERED: ADVAIR HFA 115/21 MCG INHALER 8 GM IH SCH (21:00)
[2022-01-13 00:19] VITALS: BP 139/72
[2022-01-13] MEDS: RT-ALBUTEROL/IPRATROPIUM 3 ML (DUONEB) VIAL INH SCH ×6 (03:30→21:43)
[2022-01-13 04:53] VITALS: BP 174/93
[2022-01-13] MEDS: CATHETER FLUSH 10 ML SYR IVP SCH ×3 (05:05→23:39)
[2022-01-13] MEDS: methylPREDNISolone 40 MG/ML (Solu-MEDROL) VIAL IV SCH ×4 (05:05→23:39)
[2022-01-13 05:14] LABS: BASOPHILS % (AUTO) 0 % (0-10); EOSINOPHILS % (AUTO) 0 % (0-10); HEMATOCRIT 41 % (35-52); HEMOGLOBIN 12.5 g/dL (11.5-16.0); LYMPHOCYTES # (AUTO) 0.8 10^3/uL (1.0-4.0); LYMPHOCYTES % (AUTO) 4 % (12-44); MEAN CORPUSCULAR HEMOGLOBIN 26 pg (25-34); MEAN CORPUSCULAR HGB CONC 30 g/dL (32-36); MEAN CORPUSCULAR VOLUME 87 fL (80-99); MEAN PLATELET VOLUME 9.1 fL (9.0-12.2); MONOCYTES # (AUTO) 0.6 10^3/uL (0.0-1.0); MONOCYTES % (AUTO) 3 % (0-12); NEUTROPHILS % (AUTO) 93 % (42-75); PLATELET COUNT 342 10^3/uL (130-400); WHITE BLOOD COUNT 22.7 10^3/uL (4.3-11.0)
[2022-01-13 05:25] LABS: ALBUMIN 3.4 GM/DL (3.2-4.5); POTASSIUM 3.9 MMOL/L (3.6-5.0)
[2022-01-13 05:26] LABS: CALCIUM 8.8 MG/DL (8.5-10.1)
[2022-01-13 05:27] LABS: TOTAL PROTEIN 6.4 GM/DL (6.4-8.2)
[2022-01-13 05:29] LABS: BILIRUBIN,TOTAL 0.1 MG/DL (0.1-1.0)
[2022-01-13 05:31] LABS: CREATININE SERUM 0.77 MG/DL (0.60-1.30)
[2022-01-13 06:24] LABS: LYMPHOCYTES % (MANUAL) 5 %; MONOCYTES % (MANUAL) 4 %; NEUTROPHILS % (MANUAL) 91 %; RBC MORPH NORMAL
[2022-01-13 07:36] VITALS: BP 166/90
[2022-01-13] MEDS: polyethylene glycoL POWDER 17 GM (MIRALAX) PACK PO SCH ×2 (08:30→21:48)
[2022-01-13] MEDS: ENOXAPARIN 60 MG/0.6 ML (LOVENOX) SYR SC SCH ×2 (08:30→20:29)
[2022-01-13] MEDS: SENNA W/DOCUSATE (SENOKOT S) TABLET PO SCH ×2 (08:31→20:05)
[2022-01-13] MEDS: AZITHROMYCIN 250 MG TAB (ZITHROMAX) PO SCH (08:31)
[2022-01-13] MEDS: LORATADINE (CLARITIN) 10 MG TAB PO SCH (08:31)
[2022-01-13] MEDS: FAMOTIDINE 20 MG (PEPCID) TABLET PO SCH ×2 (08:31→19:52)
[2022-01-13] MEDS: RT--FLUTICASONE/SALMETEROL 113-14 (AIRDUO RespiCLICK) IH SCH ×2 (10:32→21:44)
[2022-01-13 11:26] VITALS: BP 130/79
[2022-01-13] MEDS: HYDROcodone/APAP 5 MG/325 MG (LORTAB) TAB PO PRN ×2 (11:37→19:52)
--- NOTE | 2022-01-13 12:31 | Progress Note - Hospitalist ---
Subjective HPI/CC On Admission Date Seen by Provider: Jan 13, 2022 Time Seen by Provider: 12:30 Chief complaint: Status asthmaticus HPI: This is a 36-year-old female of [facility] who has a past medical history of asthma and smoking who presents to the ER with status asthmaticus. Patient is still with significant wheezing so I will place her back on Solu-Medrol IV and discontinue the prednisone. Multiple meds were added. Subjective/Events-last exam Doing much better Wheezing 50% better Tolerating IV steroids well Review of Systems Pulmonary: Dyspnea Objective Exam Vital Signs Vital Signs Date Time Temp Pulse Resp B/P (MAP) Pulse Ox O2 Delivery O2 Flow Rate FiO2 01/13/22 15:08 36.9 69 18 140/75 (96) 97 Room Air 01/13/22 08:40 0.00 Capillary Refill : Less Than 3 Seconds General Appearance: No Apparent Distress, WD/WN, Chronically ill, Obese Respiratory: No Accessory Muscle Use, No Respiratory Distress, Decreased Breath Sounds, Wheezing Results/Procedures Lab Laboratory Tests 01/13/22 04:49 Patient resulted labs reviewed. Assessment/Plan Assessment and Plan Assess & Plan/Chief Complaint Status asthmaticus Plan: Continue IV steroids KRISTOFER BETANCUR DO Jan 13, 2022 12:31
[2022-01-13 15:08] VITALS: BP 140/75
[2022-01-13 19:14] VITALS: BP 134/80
[2022-01-13] MEDS: MONTELUKAST 10 MG (SINGULAIR) TAB PO SCH (19:52)
[2022-01-14] VITALS (7 sets, daily range): BP systolic 154–170; BP diastolic 80–114
[2022-01-14] MEDS: RT-ALBUTEROL/IPRATROPIUM 3 ML (DUONEB) VIAL INH SCH ×7 (03:36→21:57)
[2022-01-14] MEDS: methylPREDNISolone 40 MG/ML (Solu-MEDROL) VIAL IV SCH ×2 (06:24→11:01)
[2022-01-14] MEDS: CATHETER FLUSH 10 ML SYR IVP SCH ×3 (06:24→22:00)
--- NOTE | 2022-01-14 06:26 | Progress Note - Hospitalist ---
Subjective HPI/CC On Admission Date Seen by Provider: Jan 14, 2022 Time Seen by Provider: 12:30 Chief complaint: Status asthmaticus HPI: This is a 36-year-old female of [facility] who has a past medical history of asthma and smoking who presents to the ER with status asthmaticus. Patient is still with significant wheezing so I will place her back on Solu-Medrol IV and discontinue the prednisone. Multiple meds were added. Subjective/Events-last exam Patient reports shortness of breath Patient has been refusing Lovenox but she is willing to take it after I spoke with her Cardiology will be consulted TSH abnormal we will add free T4 IV Lasix will be given 20 Mg IV due to blood pressure 120s Will decrease IV steroids Review of Systems Pulmonary: Dyspnea Objective Exam Vital Signs Vital Signs Date Time Temp Pulse Resp B/P (MAP) Pulse Ox O2 Delivery O2 Flow Rate FiO2 01/14/22 13:20 71 01/14/22 11:49 36.6 20 167/114 (131) 97 Room Air 01/13/22 08:40 0.00 Capillary Refill : Less Than 3 Seconds General Appearance: No Apparent Distress, WD/WN, Chronically ill Respiratory: Crackles, Decreased Breath Sounds, Wheezing Cardiovascular: Regular Rate, Rhythm Neurologic/Psychiatric: Alert, Oriented x3, No Motor/Sensory Deficits, Normal Mood/Affect Results/Procedures Lab Laboratory Tests 01/14/22 06:30 Patient resulted labs reviewed. Assessment/Plan Assessment and Plan Assess & Plan/Chief Complaint Status asthmaticus Suppressed TSH Plan: Decrease IV steroids Cardiology consult Lasix 1 dose Added free T4 KRISTOFER BETANCUR DO Jan 14, 2022 06:26
[2022-01-14 07:02] LABS: BASOPHILS % (AUTO) 0 % (0-10); EOSINOPHILS % (AUTO) 0 % (0-10); HEMATOCRIT 42 % (35-52); HEMOGLOBIN 12.4 g/dL (11.5-16.0); LYMPHOCYTES % (AUTO) 4 % (12-44); MEAN CORPUSCULAR HEMOGLOBIN 26 pg (25-34); MEAN CORPUSCULAR HGB CONC 30 g/dL (32-36); MEAN CORPUSCULAR VOLUME 87 fL (80-99); MEAN PLATELET VOLUME 9.2 fL (9.0-12.2); MONOCYTES # (AUTO) 0.8 10^3/uL (0.0-1.0); MONOCYTES % (AUTO) 4 % (0-12); NEUTROPHILS # (AUTO) 19.6 10^3/uL (1.8-7.8); NEUTROPHILS % (AUTO) 90 % (42-75); PLATELET COUNT 375 10^3/uL (130-400); WHITE BLOOD COUNT 21.7 10^3/uL (4.3-11.0)
[2022-01-14 07:13] LABS: ALBUMIN 3.3 GM/DL (3.2-4.5)
[2022-01-14 07:14] LABS: POTASSIUM 3.8 MMOL/L (3.6-5.0)
[2022-01-14 07:15] LABS: CALCIUM 8.7 MG/DL (8.5-10.1)
[2022-01-14 07:16] LABS: TOTAL PROTEIN 6.2 GM/DL (6.4-8.2)
[2022-01-14 07:18] LABS: BILIRUBIN,TOTAL 0.1 MG/DL (0.1-1.0)
[2022-01-14 07:20] LABS: CREATININE SERUM 0.76 MG/DL (0.60-1.30)
[2022-01-14] MEDS: RT--FLUTICASONE/SALMETEROL 113-14 (AIRDUO RespiCLICK) IH SCH ×2 (07:43→21:57)
[2022-01-14] MEDS: HYDROcodone/APAP 5 MG/325 MG (LORTAB) TAB PO PRN ×3 (07:48→21:14)
[2022-01-14] MEDS: ENOXAPARIN 60 MG/0.6 ML (LOVENOX) SYR SC SCH ×2 (08:08→21:12)
[2022-01-14] MEDS: polyethylene glycoL POWDER 17 GM (MIRALAX) PACK PO SCH ×3 (08:08→21:00)
[2022-01-14] MEDS: AZITHROMYCIN 250 MG TAB (ZITHROMAX) PO SCH (08:08)
[2022-01-14] MEDS: FAMOTIDINE 20 MG (PEPCID) TABLET PO SCH ×2 (08:08→21:11)
[2022-01-14] MEDS: LORATADINE (CLARITIN) 10 MG TAB PO SCH (08:08)
[2022-01-14] MEDS: SENNA W/DOCUSATE (SENOKOT S) TABLET PO SCH ×3 (08:08→21:11)
[2022-01-14] MEDS: ONDANSETRON 4 MG/2 ML (SDV) Z0FRAN IV PRN (11:34)
[2022-01-14] MEDS ORDERED: FUROSEMIDE 40 MG/4 ML INJ (LASIX) IVP ONE (11:45)
[2022-01-14] MEDS ORDERED: LOSARTAN 50 MG (COZAAR) TAB PO ONE (13:45)
--- NOTE | 2022-01-14 13:49 | Consultation-Cardiology ---
HPI-Cardiology Cardiology Consultation: Date of Consultation 01/14/22 Date of Admission 01/11/22 Attending Physician Brina Cm MD Admitting Physician Admitting Physician: Brina Cm MD Attending Physician: Glaids Underwood DO Consulting Physician MANAV CENTENO JR, MD HPI: Time Seen by a Provider: 13:48 Chief Complaint: REASON FOR CONSULTATION: Shortness of breath. I had the pleasure of seeing Christine on the medical/surgical unit at [facility] in [place], [place] today. She has no known history of coronary artery disease but does have a history of hypertension and cigarette smoking for cardiac risk factors. She was admitted to the hospital several days ago with increasing dyspnea on exertion. This was felt to be due to an exacerbation of her asthma and she was treated appropriately. However, due to ongoing shortness of breath, a cardiology consultation was requested in the event that some of her shortness of breath could be cardiac in etiology. Since being admitted, her breathing has improved but not quite back to her baseline. She reports paroxysmal nocturnal dyspnea prior to admission. When her breathing gets bad, she will get some tightness in her chest. She denies orthopnea. When she uses the nebulizer, she will get some palpitations with the sensation of a fluttering or rapid heartbeat in her chest. She has had some intermittent lightheaded spells but denies any syncope. She has chronic, intermittent lower extremity edema which has actually improved. Certain portions of this document may have been dictated utilizing voice recognition technology. Inherent to this technology, typographical and grammatical errors may exist. As much as I am diligent to identify and correct these mistakes, some errors may remain in the document. Review of Systems-Cardiology Review of Systems : No Other comments Review of 10 organ systems is as per the history of present illness, otherwise negative. [id number]-Ufpirw Hx Patient Social History Marrital Status: single Employed/Student: employed Smoking Status: Current Everyday Smoker 2nd Hand Smoke Exposure: Yes Have you traveled recently?: No Alcohol Use?: No Substance type: Methamphetamine, Marijuana, Other (cocaine) Pt feels they are or have been: No Tobacco type used: Cigarettes Immunizations Up To Date Tetanus Booster (TDap): Unknown Past Medical History PMH As described under Assessment. Family Medical History Family History: Asthma 19 FATHER G8 BROTHER Completed stroke MATERNAL GRANDFATHER Diabetes mellitus 19 FATHER 19 MOTHER Drug abuse 19 FATHER G8 BROTHER G8 BROTHER G8 BROTHER FH: breast cancer MATERNAL GRANDMOTHE ( AGE 71) Headache disorder G8 SISTER Hypertension 19 MOTHER G8 BROTHER Psychosocial problem G8 BROTHER Seizure disorder MATERNAL GRANDMOTHE Allergies and Home Medications Allergies Coded Allergies: No Known Drug Allergies (Unverified , 10/20/12) Patient Home Medication List Home Medication List Reviewed: Yes Albuterol Sulfate (Ventolin Hfa) 90 Mcg Hfa.aer.ad, 2 PUFF INH Q4H PRN for SHORTNESS OF BREATH, (Reported) Entered as Reported by: DENNIS STEARNS on 01/12/221141 Last Action: Held Aspirin (Aspirin EC) 325 Mg Tablet.dr, 325-650 MG PO Q6H PRN for PAIN-MILD (1- 4), (Reported) Entered as Reported by: DENNIS STEARNS on 01/12/221141 Last Action: Held Azithromycin (Azithromycin) 250 Mg Tablet, 250 MG PO DAILY, (Reported) Entered as Reported by: DENNIS STEARNS on 01/12/221141 Last Action: Held Fluticasone Propion/Salmeterol (Fluticasone-Salmeterol 500-50) 500 Mcg-50 Mcg/Dose Blst.w.dev, 1 PUFF INH BID, (Reported) Entered as Reported by: DENNIS STEARNS on 01/12/221141 Last Action: Held Ibuprofen (Ibuprofen) 200 Mg Tablet, 400-800 MG PO Q8H PRN for PAIN-MILD (1-4), (Reported) Entered as Reported by: DENNIS STEARNS on 01/12/221141 Last Action: Held Ipratropium/Albuterol Sulfate (Iprat-Albut 0.5-3(2.5) mg/3 ml) 0.5 Mg-3 Mg (2.5 Mg Base)/3 Ml Ampul.neb, 3 ML IH Q4H, (Reported) Entered as Reported by: DENNIS STEARNS on 01/12/221141 Last Action: Held L.acidoph & Paracasei,B.lactis (Probiotic) 10 Billion Cell Capsule, 1 EACH PO DAILY, (Reported) Entered as Reported by: DENNIS STEARNS on 10/28/22 1142 Last Action: Held Prednisone (Prednisone) 50 Mg Tab, 50 MG PO DAILY, (Reported) Entered as Reported by: MALI COOPER on 01/11/222349 Last Action: Held Tiotropium [place] (Spiriva Respimat 2.5MCG/ACTUATION) 2.5 Mcg/Actuation Mist.inhal, 1 PUFF INH BID, (Reported) Entered as Reported by: MALI COOPER on 01/11/222349 Last Action: Held Discontinued Medications Albuterol (Proair Hfa) 8.5 Gm Hfa.aer.ad, 8.5 GM IH Q2, (Reported) Discontinued Reason: No Longer Taking Entered as Reported by: RAMU WALLIS on 10/20/122034 Last Action: Discontinued Albuterol Sulfate (Ventolin Hfa) 1 Puff Puff, 2 PUFF INH Q4H PRN for WHEEZING Discontinued Reason: No Longer Taking Prescribed by: APRIL FONSECA on 08/17/19 221 Last Action: Discontinued Azithromycin (Azithromycin) 250 Mg Tablet, 250 MG PO DAILY Discontinued Reason: No Longer Taking Prescribed by: ADIN MANN on 06/22/19 0022 Last Action: Discontinued Beclomethasone Dipropionate (Qvar) 8.7 Gm Aer.w.adap, 8.7 GM IH BID Discontinued Reason: No Longer Taking Prescribed by: BETTINA ZAVALA on 09/18/17 1540 Last Action: Discontinued Benzonatate (Tessalon Perles) 100 Mg Capsule, 100 MG PO Q6H PRN for COUGH Discontinued Reason: No Longer Taking Prescribed by: APRIL FONSECA on 04/02/21 1227 Last Action: Discontinued Benzonatate (Tessalon Perles) 100 Mg Capsule, 200 MG PO TID Discontinued Reason: No Longer Taking Prescribed by: BRETT HASSAN on 08/04/21 010 Last Action: Discontinued Doxycycline Hyclate (Doxycycline Hyclate) 100 Mg Tablet, 100 MG PO BID Discontinued Reason: No Longer Taking Prescribed by: BRETT HASSAN on 08/04/21102 Last Action: Discontinued Hydralazine HCl (Hydralazine HCl) 10 Mg Tablet, 10 MG PO TID PRN for BLOOD PRESSURE Discontinued Reason: No Longer Taking Prescribed by: BRETT HASSAN on 01/14/21 2312 Last Action: Discontinued Ibuprofen (Ibu) 600 Mg Tablet, 600 MG PO Q6H Discontinued Reason: No Longer Taking Prescribed by: BRINA CM on 10/18/17 0948 Last Action: Discontinued Ibuprofen (Ibu) 600 Mg Tablet, 600 MG PO Q6H Discontinued Reason: No Longer Taking Prescribed by: TOÑO BONILLA on 12/12/18 0813 Last Action: Discontinued Ipratropium/Albuterol Sulfate (Iprat-Albut 0.5-3(2.5) mg/3 ml) 3 Ml Ampul.neb, 3 ML IH Q6H PRN for SHORTNESS OF BREATH Discontinued Reason: No Longer Taking Prescribed by: BETTINA ZAVALA on 09/18/17 1540 Last Action: Discontinued Ipratropium/Albuterol Sulfate (Iprat-Albut 0.5-3(2.5) mg/3 ml) 3 Ml Ampul.neb, 3 ML IH Q4H PRN for SHORTNESS OF BREATH Discontinued Reason: No Longer Taking Prescribed by: APRIL FONSECA on 04/02/21 1238 Last Action: Discontinued Naproxen (Naproxen) 500 Mg Tablet.dr, 500 MG PO BID Discontinued Reason: No Longer Taking Prescribed by: BRETT HASSAN on 06/15/21 0121 Last Action: Discontinued Nebulizer (Compact Compressor Nebulizer) 1 Each Each, EACH , (DME) Discontinued Reason: No Longer Taking Prescribed by: APRIL FONSECA on 08/17/19 2212 Last Action: Discontinued Omeprazole (Omeprazole) 40 Mg Capsule.dr, 40 MG PO DAILY Discontinued Reason: No Longer Taking Prescribed by: APRIL FONSECA on 12/15/18 0551 Last Action: Discontinued Omeprazole (Omeprazole) 20 Mg Tablet.dr, 20 MG PO BID Discontinued Reason: No Longer Taking Prescribed by: SHEILA WALTERS on 04/06/19 1741 Last Action: Discontinued Ondansetron (Ondansetron Odt) 4 Mg Tab.rapdis, 4-8 MG PO Q6H PRN for NAUSEA/VOMITING Discontinued Reason: No Longer Taking Prescribed by: APRIL FONSECA on 04/02/21 1227 Last Action: Discontinued Ondansetron (Ondansetron Odt) 4 Mg Tab.rapdis, 4 MG PO Q4H Discontinued Reason: No Longer Taking Prescribed by: ANDRZEJ HEWITT on 10/24/21 2221 Last Action: Discontinued Pantoprazole Sodium (Protonix) 40 Mg Tablet.dr, 40 MG PO DAILY Discontinued Reason: No Longer Taking Prescribed by: BRETT HASSAN on 06/15/21 0121 Last Action: Discontinued Pnv No.122/Iron/Folic Acid ( Multi Tablet) 1 Each Tablet, 1 EACH PO DAILY Discontinued Reason: No Longer Taking Prescribed by: BRETT HASSAN on 04/27/18 2151 Last Action: Discontinued Prednisone (Prednisone) 20 Mg Tab, 40 MG PO BID Discontinued Reason: No Longer Taking Prescribed by: APRIL FONSECA on 12/15/18 0535 Last Action: Discontinued Prednisone (Prednisone) 20 Mg Tab, 40 MG PO DAILY Discontinued Reason: No Longer Taking Prescribed by: ADIN MANN on 06/22/19 0022 Last Action: Discontinued Prednisone (Prednisone) 20 Mg Tab, 40 MG PO DAILY Discontinued Reason: No Longer Taking Prescribed by: BRETT HASSAN on 08/04/21 0103 Last Action: Discontinued Promethazine HCl/Codeine (Promethazine-Codeine Solution) 473 Ml Syrup, 5 ML PO Q6H PRN for cough/nausea Discontinued Reason: No Longer Taking Prescribed by: RODRÍGUEZ LYNCH on 10/15/20 1632 Last Action: Discontinued Exam Vital Signs Vital Signs Date Time Temp Pulse Resp B/P (MAP) Pulse Ox O2 Delivery O2 Flow Rate FiO2 01/14/22 14:50 98 Room Air 01/14/22 13:20 71 01/14/22 11:49 36.6 20 167/114 (131) 01/13/22 08:40 0.00 Physical Exam General: Alert. No acute distress. Well nourished and appears stated age. She is morbidly obese. Eye: Extraocular movements are intact. Conjunctivae are clear. There are no xanthelasma. HENT: Normocephalic. Atraumatic. Carotid pulsations 2/2 without bruits. Neck: Jugular venous pressure does not appear elevated. No thyromegaly appreciated. Respiratory: Lungs have diffusely decreased breath sounds with some fine scattered bilateral wheezes. Respirations are non-labored. Breath sounds are equal. Symmetrical chest wall expansion. Cardiovascular: Normal rate. Regular rhythm. Distant S1/S2. No murmur. No gallop. Point of maximal impulse is not appear displaced. Good pulses equal in all extremities. No edema. Gastrointestinal: Soft. Normal bowel sounds. Skin: Skin turgor is normal. There is no pallor. Musculoskeletal: No kyphosis or scoliosis appreciated. Neurologic: Alert and oriented to person, place, time. Cranial nerves 3-12 deja ear grossly intact. The patient has good motor tone strength in the upper and lower extremities bilaterally. Psychiatric: Cooperative. Appropriate mood & affect. Labs Laboratory Tests Test 01/14/22 06:30 01/14/22 08:30 Range/Units White Blood Count 21.7 H 4.3-11.0 10^3/uL Red Blood Count 4.80 3.80-5.11 10^6/uL Hemoglobin 12.4 11.5-16.0 g/dL Hematocrit 42 35-52 % Mean Corpuscular Volume 87 80-99 fL Mean Corpuscular Hemoglobin 26 25-34 pg Mean Corpuscular Hemoglobin Concent 30 L 32-36 g/dL Red Cell Distribution Width 13.8 10.0-14.5 % Platelet Count 375 130-400 10^3/uL Mean Platelet Volume 9.2 9.0-12.2 fL Immature Granulocyte % (Auto) 1 % Neutrophils (%) (Auto) 90 H 42-75 % Lymphocytes (%) (Auto) 4 L 12-44 % Monocytes (%) (Auto) 4 0-12 % Eosinophils (%) (Auto) 0 0-10 % Basophils (%) (Auto) 0 0-10 % Neutrophils # (Auto) 19.6 H 1.8-7.8 10^3/uL Lymphocytes # (Auto) 1.0 1.0-4.0 10^3/uL Monocytes # (Auto) 0.8 0.0-1.0 10^3/uL Eosinophils # (Auto) 0.0 0.0-0.3 10^3/uL Basophils # (Auto) 0.0 0.0-0.1 10^3/uL Immature Granulocyte # (Auto) 0.3 H 0.0-0.1 10^3/uL Sodium Level 140 135-145 MMOL/L Potassium Level 3.8 3.6-5.0 MMOL/L Chloride Level 105 98-107 MMOL/L Carbon Dioxide Level 25 21-32 MMOL/L Anion Gap 10 5-14 MMOL/L Blood Urea Nitrogen 10 7-18 MG/DL Creatinine 0.76 0.60-1.30 MG/DL Estimat Glomerular Filtration Rate 105 BUN/Creatinine Ratio 13 Glucose Level 182 H 70-105 MG/DL Calcium Level 8.7 8.5-10.1 MG/DL Corrected Calcium 9.3 8.5-10.1 MG/DL Total Bilirubin 0.1 0.1-1.0 MG/DL Aspartate Amino Transf (AST/SGOT) 16 5-34 U/L Alanine Aminotransferase (ALT/SGPT) 30 0-55 U/L Alkaline Phosphatase 83 40-136 U/L B-Type Natriuretic Peptide 119.2 H <100.0 PG/ML Total Protein 6.2 L 6.4-8.2 GM/DL Albumin 3.3 3.2-4.5 GM/DL Procalcitonin 0.01 <0.10 NG/ML Triglycerides Level 109 <150 MG/DL Cholesterol Level 127 < 200 MG/DL LDL Cholesterol Direct 56 1-129 MG/DL VLDL Cholesterol 22 5-40 MG/DL HDL Cholesterol 54 40-60 MG/DL Thyroid Stimulating Hormone (TSH) 0.05 L 0.35-4.94 UIU/ML ECG Impression ECG Comment Electrocardiogram from earlier this morning shows sinus rhythm with sinus arrhythmia and nonspecific T wave changes. Diagnosis/Problems Diagnosis/Problems (1) Shortness of breath Assessment & Plan: I suspect the majority of her shortness of breath is due to her asthma with ongoing cigarette smoking. Her BNP level is marginally elevated. She does not have any ischemic changes or evidence of a prior myocardial infarction on her ECG. I recommend ongoing treatment of the asthma. I do not believe she has heart failure. I will obtain an echocardiogram to assess for any structural heart diease that could be contributing to her dyspnea. (2) Primary hypertension Assessment & Plan: She had been on labetolol in the past but stopped this due to ill described side effects. I will start her on once daily dosing of losartan. Hopefully this will help improved compliance. (3) Asthma Assessment & Plan: As above, I suspect this is the primary cause of her shortness of breath. (4) Morbid obesity Status: Chronic Assessment & Plan: She needs to work on weight loss. She has been counseled in this regard. (5) Cigarette smoker Status: Chronic Assessment & Plan: She needs to quit smoking. She has been counseled in this regard but does not seem very interested in quitting. She also does not seem to have a good understanding of the health risks of smoking. MANAV CENTENO JR, MD Jan 14, 2022 13:49
--- NOTE | 2022-01-14 14:28 | Diagnostic Imaging Report ---
INDICATION: Increasing shortness of breath. TIME OF EXAM: 12:19 p.m. COMPARISON: Correlation is made to prior chest from 01/11/2022. FINDINGS: The heart size is normal. The pulmonary vascularity is unremarkable. The lungs are clear. No infiltrate, effusion or pneumothorax is detected. IMPRESSION: No acute cardiopulmonary process is detected. Dictated by: Dictated on workstation # [id number]
[2022-01-14] MEDS ORDERED: NALOXONE 0.4 MG/ML 1 ML (NARCAN) VIAL IV PRN (15:00)
[2022-01-14] MEDS: ALPRAZolam 0.25 MG (XANAX) TAB PO PRN (15:51)
[2022-01-14] MEDS ORDERED: cloNIDine 0.1 MG (CATAPRES) TAB PO PRN (19:45)
[2022-01-14] MEDS ORDERED: amLODIPine 5 MG (NORVASC) TAB PO ONE (19:45)
[2022-01-14] MEDS ORDERED: amLODIPine 5 MG (NORVASC) TAB ONE (20:20)
[2022-01-14] MEDS ORDERED: methylPREDNISolone 40 MG/ML (Solu-MEDROL) VIAL IV SCH ×3 (21:00)
[2022-01-14] MEDS: MONTELUKAST 10 MG (SINGULAIR) TAB PO SCH (21:11)
[2022-01-14] MEDS: NICOTINE 21 MG (NICODERM) PATCH TD SCH (21:11)
[2022-01-14] MEDS: MELATONIN 3 MG TABLET PO PRN (21:11)
[2022-01-14] MEDS: methylPREDNISolone 125 MG (Solu-MEDROL) VIAL IV SCH (21:12)
[2022-01-14] MEDS: inSUlin ASPART (NovoLOG) 1 UNIT/0.01 ML (CHARGE PER UNIT) SC SCH (21:12)
[2022-01-15] VITALS (8 sets, daily range): BP systolic 134–173; BP diastolic 82–121
[2022-01-15] MEDS: ONDANSETRON 4 MG/2 ML (SDV) Z0FRAN IV PRN (02:01)
[2022-01-15] MEDS: inSUlin ASPART (NovoLOG) 1 UNIT/0.01 ML (CHARGE PER UNIT) SC SCH ×4 (05:30→16:56)
[2022-01-15] MEDS: CATHETER FLUSH 10 ML SYR IVP SCH ×3 (05:31→20:55)
--- NOTE | 2022-01-15 05:47 | Progress Note - Hospitalist ---
Subjective HPI/CC On Admission Date Seen by Provider: Jan 15, 2022 Time Seen by Provider: 09:00 Chief complaint: Status asthmaticus HPI: This is a 36-year-old female of [facility] who has a past medical history of asthma and smoking who presents to the ER with status asthmaticus. Patient is still with significant wheezing so I will place her back on Solu-Medrol IV and discontinue the prednisone. Multiple meds were added. Subjective/Events-last exam Pt is still not feeling well Elevated bp requiring intervention Will change Solumedrol to Prednisone Will ambulate Still refusing most Lovenox injections, even though I counseled her on risk of DVT Review of Systems Pulmonary: Dyspnea, Cough Objective Exam Vital Signs Vital Signs Date Time Temp Pulse Resp B/P (MAP) Pulse Ox O2 Delivery O2 Flow Rate FiO2 01/16/22 04:16 36.6 83 20 146/85 (105) 97 Room Air 01/15/22 08:00 0.00 Capillary Refill : Less Than 3 Seconds General Appearance: No Apparent Distress, WD/WN, Chronically ill, Obese Respiratory: No Accessory Muscle Use, No Respiratory Distress, Decreased Breath Sounds, Wheezing Cardiovascular: Regular Rate, Rhythm Neurologic/Psychiatric: Alert, Oriented x3, No Motor/Sensory Deficits, Depressed Affect Results/Procedures Lab Patient resulted labs reviewed. Assessment/Plan Assessment and Plan Assess & Plan/Chief Complaint Assessment: Status asthmaticus Suppressed TSH Morbid obesity Hyperglycemia from steroids Plan: Convert steroids to p.o. Cardiology consult Lasix 1 dose yesterday Added free T4 and it was normal Patient refusing Lovenox KRISTOFER BETANCUR DO Jan 15, 2022 05:47
[2022-01-15 05:48] LABS: BASOPHILS % (AUTO) 0 % (0-10); EOSINOPHILS % (AUTO) 0 % (0-10); HEMATOCRIT 43 % (35-52); HEMOGLOBIN 12.7 g/dL (11.5-16.0); LYMPHOCYTES # (AUTO) 1.3 10^3/uL (1.0-4.0); LYMPHOCYTES % (AUTO) 7 % (12-44); MEAN CORPUSCULAR HEMOGLOBIN 26 pg (25-34); MEAN CORPUSCULAR HGB CONC 30 g/dL (32-36); MEAN CORPUSCULAR VOLUME 86 fL (80-99); MEAN PLATELET VOLUME 9.1 fL (9.0-12.2); MONOCYTES # (AUTO) 1.2 10^3/uL (0.0-1.0); MONOCYTES % (AUTO) 6 % (0-12); NEUTROPHILS # (AUTO) 17.2 10^3/uL (1.8-7.8); NEUTROPHILS % (AUTO) 85 % (42-75); PLATELET COUNT 372 10^3/uL (130-400); WHITE BLOOD COUNT 20.1 10^3/uL (4.3-11.0)
[2022-01-15] MEDS: RT-ALBUTEROL/IPRATROPIUM 3 ML (DUONEB) VIAL INH SCH ×8 (05:59→23:09)
[2022-01-15 06:01] LABS: ALBUMIN 3.1 GM/DL (3.2-4.5); POTASSIUM 3.6 MMOL/L (3.6-5.0)
[2022-01-15 06:03] LABS: CALCIUM 8.5 MG/DL (8.5-10.1)
[2022-01-15 06:04] LABS: TOTAL PROTEIN 6.1 GM/DL (6.4-8.2)
[2022-01-15 06:06] LABS: BILIRUBIN,TOTAL 0.1 MG/DL (0.1-1.0)
[2022-01-15 06:07] LABS: CREATININE SERUM 0.79 MG/DL (0.60-1.30)
[2022-01-15] MEDS: RT--FLUTICASONE/SALMETEROL 113-14 (AIRDUO RespiCLICK) IH SCH ×2 (06:43→19:15)
[2022-01-15] MEDS: ENOXAPARIN 60 MG/0.6 ML (LOVENOX) SYR SC SCH ×3 (08:54→20:54)
[2022-01-15] MEDS: NICOTINE 21 MG (NICODERM) PATCH TD SCH (08:55)
[2022-01-15] MEDS: polyethylene glycoL POWDER 17 GM (MIRALAX) PACK PO SCH ×2 (08:55→20:43)
[2022-01-15] MEDS: NICOTINE PATCH REMOVAL TP SCH (08:55)
[2022-01-15] MEDS: methylPREDNISolone 125 MG (Solu-MEDROL) VIAL IV SCH (08:56)
[2022-01-15] MEDS: AZITHROMYCIN 250 MG TAB (ZITHROMAX) PO SCH (08:56)
[2022-01-15] MEDS: amLODIPine 5 MG (NORVASC) TAB PO SCH (08:56)
[2022-01-15] MEDS: LORATADINE (CLARITIN) 10 MG TAB PO SCH (08:56)
[2022-01-15] MEDS: FAMOTIDINE 20 MG (PEPCID) TABLET PO SCH ×2 (08:57→20:44)
[2022-01-15] MEDS: SENNA W/DOCUSATE (SENOKOT S) TABLET PO SCH ×2 (08:57→20:43)
[2022-01-15] MEDS: LOSARTAN 50 MG (COZAAR) TAB PO SCH (08:57)
[2022-01-15] MEDS: HYDROcodone/APAP 5 MG/325 MG (LORTAB) TAB PO PRN ×3 (09:24→20:47)
--- NOTE | 2022-01-15 12:53 | Cardiology Progress Note ---
Progress Note-Cardiology Events since last exam Date Seen by Provider: Jan 15, 2022 Time Seen by Provider: 12:52 Events since last exam I am following her due to dyspnea. Her breathing is better but not quite back to baseline. She has some fleeting sharp chest pains that last 1-2 minutes and resolve spontaneously. She gets some palpitations with the sensation of a fluttering in her chest when she uses the nebulizer but denies associated complaints. She denies syncope or ankle edema. Certain portions of this document may have been dictated utilizing voice recognition technology. Inherent to this technology, typographical and grammatical errors may exist. As much as I am diligent to identify and correct these mistakes, some errors may remain in the document. Vitals Last set of Vitals Signs Vital Signs 01/15/22 01/15/22 01/15/22 01/15/22 08:00 11:26 13:03 14:51 Temp 37.0 Pulse 85 Resp 20 B/P (MAP) 152/93 (112) Pulse Ox 94 O2 Delivery Room Air O2 Flow Rate 0.00 Labs Labs Laboratory Tests 01/15/22 05:20 Exam Vital Signs Vital Signs Date Time Temp Pulse Resp B/P (MAP) Pulse Ox O2 Delivery O2 Flow Rate FiO2 01/15/22 14:51 94 Room Air 01/15/22 13:03 85 01/15/22 11:26 37.0 20 152/93 (112) 01/15/22 08:00 0.00 Physical Exam General: Alert. No acute distress. She is morbidly obese. Eye: No xanthelasma. HENT: Normocephalic. Neck: Jugular venous pressure does not appear elevated. Respiratory: Lungs have slight scattered wheezes but improved. Respirations are non-labored. Breath sounds are equal. Symmetrical chest wall expansion. Cardiovascular: Normal rate. Regular rhythm. No murmur. No gallop. No edema. Gastrointestinal: Soft. Normal bowel sounds. Skin: Warm. Dry. Neurologic: Alert and oriented to person, place, time. Cranial nerves 3-11 grossly intact. Psychiatric: Cooperative. Appropriate mood & affect. Labs Laboratory Tests Test 01/14/22 20:12 01/15/22 04:50 01/15/22 05:20 01/15/22 05:50 Range/Units Glucometer 201 H 163 H 70-110 MG/DL White Blood Count 20.1 H 4.3-11.0 10^3/uL Red Blood Count 4.93 3.80-5.11 10^6/uL Hemoglobin 12.7 11.5-16.0 g/dL Hematocrit 43 35-52 % Mean Corpuscular Volume 86 80-99 fL Mean Corpuscular Hemoglobin 26 25-34 pg Mean Corpuscular Hemoglobin Concent 30 L 32-36 g/dL Red Cell Distribution Width 13.8 10.0-14.5 % Platelet Count 372 130-400 10^3/uL Mean Platelet Volume 9.1 9.0-12.2 fL Immature Granulocyte % (Auto) 2 % Neutrophils (%) (Auto) 85 H 42-75 % Lymphocytes (%) (Auto) 7 L 12-44 % Monocytes (%) (Auto) 6 0-12 % Eosinophils (%) (Auto) 0 0-10 % Basophils (%) (Auto) 0 0-10 % Neutrophils # (Auto) 17.2 H 1.8-7.8 10^3/uL Lymphocytes # (Auto) 1.3 1.0-4.0 10^3/uL Monocytes # (Auto) 1.2 H 0.0-1.0 10^3/uL Eosinophils # (Auto) 0.0 0.0-0.3 10^3/uL Basophils # (Auto) 0.0 0.0-0.1 10^3/uL Immature Granulocyte # (Auto) 0.3 H 0.0-0.1 10^3/uL Sodium Level 140 135-145 MMOL/L Potassium Level 3.6 3.6-5.0 MMOL/L Chloride Level 102 98-107 MMOL/L Carbon Dioxide Level 28 21-32 MMOL/L Anion Gap 10 5-14 MMOL/L Blood Urea Nitrogen 14 7-18 MG/DL Creatinine 0.79 0.60-1.30 MG/DL Estimat Glomerular Filtration Rate 100 BUN/Creatinine Ratio 18 Glucose Level 150 H 70-105 MG/DL Calcium Level 8.5 8.5-10.1 MG/DL Corrected Calcium 9.2 8.5-10.1 MG/DL Total Bilirubin 0.1 0.1-1.0 MG/DL Aspartate Amino Transf (AST/SGOT) 33 5-34 U/L Alanine Aminotransferase (ALT/SGPT) 53 0-55 U/L Alkaline Phosphatase 71 40-136 U/L Total Protein 6.1 L 6.4-8.2 GM/DL Albumin 3.1 L 3.2-4.5 GM/DL Test 01/15/22 10:15 Range/Units Glucometer 169 H 70-110 MG/DL Radiology ECHOCARDIOGRAM (01/15/2022): 1. Left ventricle: The cavity size is mildly increased. There is mild concentric hypertrophy. Systolic function is normal. The estimated ejection fraction is 60- 65%. There are no significant regional wall motion abnormalities identified on this technically difficult study. Left ventricular diastolic function parameters are normal. 2. Pulmonary arteries: The estimated pulmonary artery systolic pressure is 23 mmHg assuming a right atrial pressure of 5 mmHg. Diagnosis/Problems Diagnosis/Problems (1) Chest pain Status: Acute Assessment & Plan: Exact etiology unclear. This sounds noncardiac. Suspect this could be due to musculoskeletal pain or possibly esophageal reflux disease. I will start her on a proton pump inhibitor. Given her young age, coronary artery disease would be unlikely. (2) Shortness of breath Assessment & Plan: I suspect the majority of her shortness of breath is due to her asthma with ongoing cigarette smoking as well as due to her morbid obesity. Her BNP level is marginally elevated. She does not have any ischemic changes or evidence of a prior myocardial infarction on her ECG. I recommend ongoing treatment of the asthma. I do not believe she has heart failure. Her echocardiogram shows left ventricular dilatation but with normal systolic and diastolic function and no other structural heart disease to explain shortness of breath. (3) Primary hypertension Assessment & Plan: She had been on labetolol in the past but stopped this due to ill described side effects. I started her on once daily dosing of losartan on 01/14. The primary team has added amlodipine. (4) Asthma Assessment & Plan: As above, I suspect this is the primary cause of her shortness of breath. (5) Morbid obesity Status: Chronic Assessment & Plan: She needs to work on weight loss. She has been counseled in this regard. (6) Cigarette smoker Status: Chronic Assessment & Plan: She needs to quit smoking. She has been counseled in this regard but does not seem very interested in quitting. She also does not seem to have a good understanding of the health risks of smoking. MANAV CENTENO JR, MD Jan 15, 2022 12:53
[2022-01-15] MEDS ORDERED: PANTOPRAZOLE 40 MG (PROTONIX) TAB PO NR (13:00)
[2022-01-15] MEDS ORDERED: LORazepam 0.5 MG (ATIVAN) TABLET PO STA (20:37)
[2022-01-15] MEDS ORDERED: LORazepam 0.5 MG (ATIVAN) TABLET ONE (20:42)
[2022-01-15] MEDS: MONTELUKAST 10 MG (SINGULAIR) TAB PO SCH (20:44)
[2022-01-15] MEDS: ALPRAZolam 0.25 MG (XANAX) TAB PO PRN (20:44)
[2022-01-15] MEDS: predniSONE 20 MG TAB PO SCH (20:44)
[2022-01-15] MEDS ORDERED: LORazepam 1 MG (ATIVAN) TAB PO PRN (20:45)
[2022-01-15] MEDS: MELATONIN 3 MG TABLET PO PRN (20:47)
[2022-01-16] MEDS: RT-ALBUTEROL/IPRATROPIUM 3 ML (DUONEB) VIAL INH SCH ×3 (03:11→10:55)
[2022-01-16 04:16] VITALS: BP 146/85
[2022-01-16] MEDS: CATHETER FLUSH 10 ML SYR IVP SCH ×2 (06:10→14:20)
[2022-01-16] MEDS: inSUlin ASPART (NovoLOG) 1 UNIT/0.01 ML (CHARGE PER UNIT) SC SCH ×2 (06:10→11:54)
[2022-01-16 07:29] VITALS: BP 125/70
[2022-01-16] MEDS: RT--FLUTICASONE/SALMETEROL 113-14 (AIRDUO RespiCLICK) IH SCH (07:49)
[2022-01-16] MEDS: HYDROcodone/APAP 5 MG/325 MG (LORTAB) TAB PO PRN ×2 (08:07→14:16)
[2022-01-16] MEDS ORDERED: PANTOPRAZOLE 40 MG (PROTONIX) TAB PO SCH (09:00)
[2022-01-16] MEDS: predniSONE 20 MG TAB PO SCH (09:14)
[2022-01-16] MEDS: LORATADINE (CLARITIN) 10 MG TAB PO SCH (09:14)
[2022-01-16] MEDS: amLODIPine 5 MG (NORVASC) TAB PO SCH (09:14)
[2022-01-16] MEDS: SENNA W/DOCUSATE (SENOKOT S) TABLET PO SCH (09:14)
[2022-01-16] MEDS: LOSARTAN 50 MG (COZAAR) TAB PO SCH (09:14)
[2022-01-16] MEDS: FAMOTIDINE 20 MG (PEPCID) TABLET PO SCH (09:14)
[2022-01-16] MEDS: ENOXAPARIN 60 MG/0.6 ML (LOVENOX) SYR SC SCH (09:17)
[2022-01-16] MEDS: NICOTINE PATCH REMOVAL TP SCH (09:17)
[2022-01-16] MEDS: polyethylene glycoL POWDER 17 GM (MIRALAX) PACK PO SCH (09:17)
[2022-01-16] MEDS: NICOTINE 21 MG (NICODERM) PATCH TD SCH (09:17)
[2022-01-16] MEDS ORDERED: FLUT1BLS13 INH (09:28)
[2022-01-16] MEDS ORDERED: PRED10TA22 PO (09:28)
[2022-01-16] MEDS ORDERED: ACHD5005 PO (09:28)
[2022-01-16] MEDS ORDERED: FAMO20TA5 PO (09:28)
[2022-01-16] MEDS ORDERED: LORA10TA7 PO (09:28)
[2022-01-16] MEDS ORDERED: PANT40TA52 PO (09:28)
[2022-01-16] MEDS ORDERED: LOSA50TA63 PO (09:28)
[2022-01-16] MEDS ORDERED: LORA-404 PO (09:28)
[2022-01-16] MEDS ORDERED: AMLO-250 PO (09:28)
[2022-01-16] MEDS ORDERED: MONT-40 PO (09:28)
--- NOTE | 2022-01-16 09:29 | Discharge Summary ---
Discharge Summary Hospital Course Was the Problem List Reviewed?: Yes Problems/Dx: (1) Chest pain Status: Acute (2) Shortness of breath (3) Primary hypertension (4) Asthma (5) Morbid obesity Status: Chronic (6) Cigarette smoker Status: Chronic Hospital Course Date of Admission: Jan 14, 2022 at 12:30 Admission Diagnosis : Family Physician/Provider: Darleen Ha MD Date of Discharge: 01/16/22 Discharge Diagnosis: [ ] Hospital Course: Patient is a 36 year old female with a history of asthma, COPD, smoking, and polysubstance abuse known to [facility] who presented to the ED by EMS on 01/12. Patient was seen earlier that day at [facility] for 2 day history of wheezing and increased shortness of breath where she was started on prednisone and azithromycin. Patient complained of chest pain which cardiology followed up with an echo that was negative for any abnormal findings and presumed most likely to be caused by GERD, for which the patient was started on a PPI. The patient's SOB and wheezing improved during the course of her stay after being placed on the current regimen of nebulizers and steroids. The patient was started on amlodipine and losartan due to her HTN during her stay in the hospital. The patient is being discharged today and has been counseled on cessation of smoking and drug use as well as counseling for weight loss. Labs and Pending Lab Test: Laboratory Tests 01/15/22 10:15: Glucometer 169H 01/15/22 15:52: Glucometer 196H 01/15/22 16:40: Glucometer 185H 01/15/22 20:52: Glucometer 165H 01/16/22 06:05: Glucometer 122H Home Meds Active Prednisone 10 Mg Tab.ds.pk 10 Mg PO DAILY Take 6 tabs(60mg)daily,decrease by 1 tab(10MG)daily. Pantoprazole Sodium 40 Mg Tablet.dr 40 Mg PO DAILY Famotidine 20 Mg Tablet 20 Mg PO BID Montelukast Sodium 10 Mg Tablet 10 Mg PO HS Losartan Potassium 50 Mg Tablet 50 Mg PO DAILY Amlodipine Besylate 5 Mg Tablet 5 Mg PO DAILY Loratadine 10 Mg Tablet 10 Mg PO DAILY Fluticasone-Salmeterol 500-50 (Fluticasone Propion/Salmeterol) 500 Mcg-50 Mcg/Dose Blst.w.dev 1 Puff INH BID Reported Aspirin EC (Aspirin) 325 Mg Tablet.dr 325-650 Mg PO Q6H PRN Ibuprofen 200 Mg Tablet 400-800 Mg PO Q8H PRN Probiotic (L.acidoph & Paracasei,B.lactis) 10 Billion Cell Capsule 1 Each PO DAILY Ventolin Hfa (Albuterol Sulfate) 90 Mcg Hfa.aer.ad 2 Puff INH Q4H PRN Iprat-Albut 0.5-3(2.5) mg/3 ml (Ipratropium/Albuterol Sulfate) 0.5 Mg-3 Mg (2.5 Mg Base)/3 Ml Ampul.neb 3 Ml IH Q4H Azithromycin 250 Mg Tablet 250 Mg PO DAILY FILLED 01-11-2022 #6/5 DAY SUPPLY Spiriva Respimat 2.5MCG/ACTUATION (Tiotropium [place]) 2.5 Mcg/Actuation Mist.inhal 1 Puff INH BID Prednisone 50 Mg Tab 50 Mg PO DAILY FILLED 01-11-2022 #5/5 DAY SUPPLY Assessment/Pt Instructions PCP in 1 week Discharge Planning: <30 minutes discharge planning Discharge Instructions Discharge Diet: No Restrictions Discharge Physical Examination Vital Signs Vital Signs Date Time Temp Pulse Resp B/P (MAP) Pulse Ox O2 Delivery O2 Flow Rate FiO2 01/16/22 07:29 36.3 75 20 125/70 (88) 100 Room Air 01/15/22 08:00 0.00 General Appearance: No Apparent Distress, WD/WN, Chronically ill, Obese Respiratory: Decreased Breath Sounds, Wheezing Cardiovascular: Regular Rate, Rhythm Neurologic/Psychiatric: Alert, Oriented x3, No Motor/Sensory Deficits, Normal Mood/Affect Allergies: Coded Allergies: No Known Drug Allergies (Unverified , 10/20/12) Discharge Summary Date of Admission Jan 14, 2022 at 12:30 Date of Discharge Discharge Date: Jan 16, 2022 Admission Diagnosis Status asthmaticus Smoker Discharge Diagnosis Assessment: Status asthmaticus Suppressed TSH Morbid obesity Hyperglycemia from steroids Plan: Convert steroids to p.o. Cardiology consult Lasix 1 dose yesterday Added free T4 and it was normal Patient refusing Lovenox (1) Chest pain Status: Acute Assessment & Plan: Exact etiology unclear. This sounds noncardiac. Suspect this could be due to musculoskeletal pain or possibly esophageal reflux disease. I will start her on a proton pump inhibitor. Given her young age, coronary artery disease would be unlikely. (2) Shortness of breath Assessment & Plan: I suspect the majority of her shortness of breath is due to her asthma with ongoing cigarette smoking as well as due to her morbid obesity. Her BNP level is marginally elevated. She does not have any ischemic changes or evidence of a prior myocardial infarction on her ECG. I recommend ongoing treatment of the asthma. I do not believe she has heart failure. Her echocardiogram shows left ventricular dilatation but with normal systolic and diastolic function and no other structural heart disease to explain shortness of breath. (3) Primary hypertension Assessment & Plan: She had been on labetolol in the past but stopped this due to ill described side effects. I started her on once daily dosing of losartan on 01/14. The primary team has added amlodipine. (4) Asthma Assessment & Plan: As above, I suspect this is the primary cause of her shortness of breath. (5) Morbid obesity Status: Chronic Assessment & Plan: She needs to work on weight loss. She has been counseled in this regard. (6) Cigarette smoker Status: Chronic Assessment & Plan: She needs to quit smoking. She has been counseled in this regard but does not seem very interested in quitting. She also does not seem to have a good understanding of the health risks of smoking. KRISTOFER BETANCUR DO Jan 16, 2022 09:29
--- NOTE | 2022-01-16 11:06 | Progress Note ---
DORETHA HAY 01/16/22 1106: Progress Note Patient is a 36 year old female with a history of asthma, COPD, smoking, and polysubstance abuse known to [facility] who presented to the ED by EMS on 01/12. Patient was seen earlier that day at [facility] for 2 day history of wheezing and increased shortness of breath where she was started on prednisone and azithromycin. Patient complained of chest pain which cardiology followed up with an echo that was negative for any abnormal findings and presumed most likely to be caused by GERD, for which the patient was started on a PPI. The patient's SOB and wheezing improved during the course of her stay after being placed on the current regimen of nebulizers and steroids. The patient was started on amlodipi ne and losartan due to her HTN during her stay in the hospital. The patient is being discharged today and has been counseled on cessation of smoking and drug use as well as counseling for weight loss. GLADIS UNDERWOOD DO 01/17/22 0508: Supervisory-Addendum Brief Verification & Attestation Participated in pt care: history, MDM, physical Personally performed: exam, history, MDM, supervision of care Care discussed with: Medical Student Procedures: n/a Results interpretation: Verified all documentation Verification and Attestation of Medical Student E/M Service A medical student performed and documented this service in my presence. I reviewed and verified all information documented by the medical student and made modifications to such information, when appropriate. I personally performed the physical exam and medical decision making. Gladis Underwood Jan 17, 2022,05:08 DORETHA HAY Jan 16, 2022 11:06 GLADIS UNDERWOOD DO Jan 17, 2022 05:08
[2022-01-16 11:39] VITALS: BP 146/98
[2022-01-16 14:45] VITALS: BP 146/98
== END 2022-01-16 14:45 | disposition home or self-care (01) | DRG 202 ==
LOC: EDUNIT# 23:38 → ER 23:39 → EDLOC 01-12 02:00 → 4TH 01-12 02:00 → INTOOBSV 01-12 02:00 → OBSVTOIN 01-14 12:30
PROVIDERS: ADMIT Family Medicine; ATTEND Internal Medicine
DX: J45.902 Unspecified asthma with status asthmaticus (principal); Z68.43 Body mass index [BMI] 50.0-59.9, adult; F19.10 Other psychoactive substance abuse, uncomplicated; K21.9 Gastro-esophageal reflux disease without esophagitis; I10 Essential (primary) hypertension; E66.01 Morbid (severe) obesity due to excess calories; F17.210 Nicotine dependence, cigarettes, uncomplicated; R73.9 Hyperglycemia, unspecified; T38.0X5A Adverse effect of glucocorticoids and synthetic analogues, initial encounter; J44.9 Chronic obstructive pulmonary disease, unspecified; F32.A Depression, unspecified; Z20.822 Contact with and (suspected) exposure to COVID-19
CPT/HCPCS: 36415; 36600; 71045; 71046; 80048; 80053; 80061; 82947; 83036; 83735; 83880; 84145; 84439; 84443; 84703; 85007; 85025; 85027; 86141; 87636; 93005; 93306; 94640; 94760

== ENCOUNTER 2022-01-19 16:20 | Emergency (ER) | payer MEDICAID ==
[~2022-01-19] VITALS: Ht 180 cm; Wt 172.0 kg
[~2022-01-19 16:20] MED LIST changes: +ACHD5005 PO; +ALBU18HF2 INH; +AMLO-250 PO; +ASPI325T32 PO; +FAMO20TA5 PO; +FLUT1BLS13 INH; +IBUP-2473 PO; +L.AC1CAP6 PO; +LORA-404 PO; +LORA10TA7 PO; +LOSA50TA63 PO; +MONT-40 PO; +PANT40TA52 PO; +PRD50T PO; +PRED10TA22 PO; +TIOT4MIS2 INH
--- NOTE | 2022-01-19 16:51 | ED Chest Pain ---
General Chief Complaint: Chest Pain Stated Complaint: FLUID RETENTION/SWELLING,CHEST PAIN Nursing Triage Note: [facility] CALLED [facility] 2 HOURS AGO INFORMING US PT WOULD BE COMING. RECENT DC FROM HOSPITAL WITH COPD. TODAY COMPLAINS OF LEFT SIDED CHEST PAIN, SOA, AND 25# WT GAIN IN 6 DAYS. PT WAS TREATED WITH BICILLIN TODAY FOR STREP THROAT. (BETTINA FRASER APRN) Source: patient Exam Limitations: no limitations (RODRÍGUEZ LYNCH MD) History of Present Illness Date Seen by Provider: Jan 19, 2022 Time Seen by Provider: 16:49 (BETTINA FRASER APRN) Initial Comments Morbidly obese 36-year-old female history of tobacco abuse who presents to the emergency room with a chief complaint of concern for leg swelling and left-sided chest discomfort under her breast. Patient states she was recently in the hospital for breathing difficulties. On review of the medical record she had an "asthma exacerbation". She was in the hospital for a couple of days. She had an echocardiogram and labs, imaging. She states she was discharged with me dication for blood pressure and mentions a "water pill". I cannot find any record of diuretic in the medical record. She denies exertional chest discomfort, she denies associated nausea, palpitations, shortness of breath, or radiation of the pain. She points to just underneath the left breast. It is worsened by movement, rolling over, deep breaths. No productive cough. She st ates she has not smoked since discharge from the hospital. She complains of weight gain with edema in her legs which appears unremarkable to this examiner. No rashes, joint pains, fevers or chills. No nausea, vomiting or diarrhea. No urinary complaints. Further review of the medical record reveals that the patient is currently on a prednisone taper. She states she has taken Tylenol and ibuprofen for the chest discomfort without improvement of the symptoms. All other review of systems reviewed and negative except as stated. Timing/Duration: 4-5 days Severity/Quality: moderate Location: other (left breast) Radiation: no radiation Activities at Onset: none ASA po SOLUTIONS SALES CONSULTANT: No NTG SL SOLUTIONS SALES CONSULTANT: No Associated Symptoms: edema (RODRÍGUEZ LYNCH MD) Allergies and Home Medications Allergies Coded Allergies: No Known Drug Allergies (Unverified , 10/20/12) Patient Home Medication List Home Medication List Reviewed: Yes (RODRÍGUEZ LYNCH MD) Albuterol Sulfate (Ventolin Hfa) 90 Mcg Hfa.aer.ad, 2 PUFF INH Q4H PRN for SHORTNESS OF BREATH, (Reported) Entered as Reported by: DENNIS STEARNS on 01/12/221141 Amlodipine Besylate (Amlodipine Besylate) 5 Mg Tablet, 5 MG PO DAILY Prescribed by: KRISTOFER BETANCUR on 01/16/22927 Aspirin (Aspirin EC) 325 Mg Tablet.dr, 325-650 MG PO Q6H PRN for PAIN-MILD (1- 4), (Reported) Entered as Reported by: DENNIS STEARNS on 01/12/221141 Famotidine (Famotidine) 20 Mg Tablet, 20 MG PO BID Prescribed by: KRISTOFER BETANCUR on 01/16/22927 Fluticasone Propion/Salmeterol (Fluticasone-Salmeterol 500-50) 500 Mcg-50 Mcg/Dose Blst.w.dev, 1 PUFF INH BID Prescribed by: KRISTOFER BETANCUR on 01/16/22927 Hydrocodone Bit/Acetaminophen (HYDROcodone/APAP 5 MG/325 MG TAB) 1 Tab Tab, 1 EA PO Q4H PRN for MOD Prescribed by: KRISTOFER BETANCUR on 01/16/22927 Ibuprofen (Ibuprofen) 200 Mg Tablet, 400-800 MG PO Q8H PRN for PAIN-MILD (1-4), (Reported) Entered as Reported by: DENNIS STEARNS on 01/12/221141 Ipratropium/Albuterol Sulfate (Iprat-Albut 0.5-3(2.5) mg/3 ml) 0.5 Mg-3 Mg (2.5 Mg Base)/3 Ml Ampul.neb, 3 ML IH Q4H, (Reported) Entered as Reported by: DENNIS STEARNS on 01/12/221141 L.acidoph & Paracasei,B.lactis (Probiotic) 10 Billion Cell Capsule, 1 EACH PO DAILY, (Reported) Entered as Reported by: DENNIS STEARNS on 01/12/221141 Loratadine (Loratadine) 10 Mg Tablet, 10 MG PO DAILY Prescribed by: KRISTOFER BETANCUR on 01/16/22927 Lorazepam (Ativan) 0.5 Mg Tablet, 0.5 MG PO TID PRN for ANXIETY Prescribed by: KRISTOFER BETANCUR on 01/16/22927 Losartan Potassium (Losartan Potassium) 50 Mg Tablet, 50 MG PO DAILY Prescribed by: KRISTOFER BETANCUR on 01/16/22927 Montelukast Sodium (Montelukast Sodium) 10 Mg Tablet, 10 MG PO HS Prescribed by: KRISTOFER BETANCUR on 01/16/22927 Pantoprazole Sodium (Pantoprazole Sodium) 40 Mg Tablet.dr, 40 MG PO DAILY Prescribed by: KRISTOFER BETANCUR on 01/16/22927 Prednisone (Prednisone) 10 Mg Tab.ds.pk, 10 MG PO DAILY Prescribed by: KRISTOFER BETANCUR on 01/16/22927 Tiotropium [place] (Spiriva Respimat 2.5MCG/ACTUATION) 2.5 Mcg/Actuation Mist.inhal, 1 PUFF INH BID, (Reported) Entered as Reported by: MALI COOPER on 01/11/222349 Discontinued Medications Azithromycin (Azithromycin) 250 Mg Tablet, 250 MG PO DAILY, (Reported) Entered as Reported by: DENNIS STEARNS on 01/12/22 114 Prednisone (Prednisone) 50 Mg Tab, 50 MG PO DAILY, (Reported) Entered as Reported by: MALI COOPER on 01/11/222349 Review of Systems Review of Systems Constitutional: see HPI EENTM: No Symptoms Reported Respiratory: No Symptoms Reported Cardiovascular: Chest Pain (under left breast), Edema Gastrointestinal: No Symptoms Reported Genitourinary: No Symptoms Reported Musculoskeletal: no symptoms reported Skin: no symptoms reported (RODRÍGUEZ LYNCH MD) All Other Systems Reviewed Negative Unless Noted: Yes (RODRÍGUEZ LYNCH MD) Past Ohvrpbw-Stwmga-Ypyahz Hx Patient Social History Tobacco Use?: Yes Smoking Status: Current Everyday Smoker Substance use?: Yes Substance type: Marijuana Additional substance use comme: HAS DONE EX, CRACK COCAINE, METH IN THE PAST Alcohol Use?: Yes Alcohol Frequency: Once in a while (BETTINA FRASER APRN) Immunizations Up To Date Tetanus Booster (TDap): Unknown PED Vaccines UTD: No First/Initial COVID19 Vaccinat: Unvaccinated Second COVID19 Vaccination [place]: Unvaccinated Third COVID19 Vaccination Date: Unvaccinated (BETTINA FRASER APRN) Seasonal Allergies Seasonal Allergies: Yes (BETTINA FRASER APRN) Past Medical History Surgery/Hospitalization HX: COPD, asthma, htn Surgeries: No Respiratory: Yes (COVID-19 04/02/21--NO TREATMENT) Asthma Currently Using CPAP: No Currently Using BIPAP: No Cardiac: Yes (REFUSES TO TAKE MEDICATION) Hypertension Neurological: No Last Menstrual Period: Jan 19, 2022 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 Disorders: Yes 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, 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 Sexually Transmitted Disease: Yes (HERPES,) HIV/AIDS: No Genitourinary: Yes UTI-Chronic Gastrointestinal: Yes Gastroesophageal Reflux, Hemorrhoids Musculoskeletal: No Endocrine: Yes (MORBID OBESITY) HEENT: No Loss of Vision: Denies Hearing Impairment: Denies Cancer: No Psychosocial: Yes (POLYSUBSTANCE ABUSE) Depression Integumentary: Yes Herpes Blood Disorders: No Adverse Reaction/Blood Tranf: No (BETTINA FRASER APRN) Family Medical History Asthma 19 FATHER G8 BROTHER Completed stroke MATERNAL GRANDFATHER Diabetes mellitus 19 FATHER 19 MOTHER Drug abuse 19 FATHER G8 BROTHER G8 BROTHER G8 BROTHER FH: breast cancer MATERNAL GRANDMOTHE ( AGE 71) Headache disorder G8 SISTER Hypertension 19 MOTHER G8 BROTHER Psychosocial problem G8 BROTHER Seizure disorder MATERNAL GRANDMOTHE SOCIAL HISTORY: -SMOKES 1 PPD -ETOH--"COUPLE OF TIMES A WEEK" -DRUGS--SNORTS COCAINE, SMOKES METH AND MARIJUANA. ALSO HX OF ECSTASY USE EXTREME NON-COMPLIANCE IN ALL ASPECTS OF CARE (BETTINA FRASER APRN) Physical Exam Vital Signs Vital Signs - First Documented 01/19/22 16:22 Temp 36.8 Pulse 92 Resp 16 B/P (MAP) 126/81 (96) Pulse Ox 99 O2 Delivery Room Air (RODRÍGUEZ LYNCH MD) Vital Signs Capillary Refill : Less Than 3 Seconds (BETTINA FRASER APRN) Height, Weight, BMI Height: 5'11.00" Weight: 362lbs. 0.8oz. 164.012477tl; 53.00 BMI Method:Stated (BETTINA FRASER APRN) General Appearance: No Apparent Distress, WD/WN HEENT: PERRL/EOMI Neck: Normal Inspection Respiratory: No Accessory Muscle Use, No Respiratory Distress, Other (; very pendulous breasts) Cardiovascular: Regular Rate, Rhythm, Other (trace edema BLE) Gastrointestinal: Soft, Other (obese) Extremity: Normal Inspection, Normal Range of Motion Neurologic/Psychiatric: Alert, Oriented x3, No Motor/Sensory Deficits, Normal Mood/Affect Skin: Normal Color, Warm/Dry (RODRÍGUEZ LYNCH MD) Progress/Results/Core Measures Results/Orders My Orders Orders - RODRÍGUEZ LYNCH MD Ekg Tracing (01/19/22 16:29) Chest 1 View, Ap/Pa Only (01/19/22 17:24) (RODRÍGUEZ LYNCH MD) Vital Signs/I&O 01/19/22 01/19/22 16:22 18:15 Temp 36.8 Pulse 92 103 Resp 16 21 B/P (MAP) 126/81 (96) 157/88 Pulse Ox 99 99 O2 Delivery Room Air Room Air (RODRÍGUEZ LYNCH MD) Blood Pressure Mean: 96 Progress Progress Note : Time: 18:06 Progress Note Patient seen and evaluated, complaints of left sided chest pain that is worse with deep breath and movement. She was treated for strep throat today at [facility]. She states that the pain has been coming and going since she was discharged from the hospital. EKG and chest x-ray are reviewed and are unr emarkable today. She has no clinical or objective findings to warrant further studies from the emergency department. She had an echo at her last hospitalization which was normal. She is concerned about swelling in her legs however she was on prednisone for quite a while and is still tapering off. Vital signs are stable. No concern for acute coronary syndrome, pneumonia, pneumothorax or any other acute unstable issue. Patient will be discharged to home with continued current medications, naproxen twice daily as needed. (RODRÍGUEZ LYNCH MD) Initial ECG Impression Date: Jan 19, 2022 Initial ECG Impression Time: 16:33 Initial ECG Rate: 95 Initial ECG Rhythm: Normal Sinus Initial ECG Intervals: Normal Initial ECG Impression: Nonspecific Changes (RODRÍGUEZ LYNCH MD) Diagnostic Imaging Diagonstic Imaging: Xray Comments [email or web address] [place], [place] NAME: JUDY DEVLIN REC#: [id number] PT STATUS: REG ER : 1985 PHYSICIAN: RODRÍGUEZ LYNCH MD ADMIT DATE: 01/19/22/ER Draft Date of Exam:01/19/22 CHEST 1 VIEW, AP/PA ONLY INDICATION: Chest pain. EXAMINATION: AP view of the chest was obtained. COMPARISON: Study of 01/11/2022. FINDINGS: Heart size and pulmonary vascularity are within normal limits, and the lungs are clear, bilaterally. IMPRESSION: Unremarkable chest. Dictated on workstation # [id number] Dict: 01/19/221750 Trans: 01/19/221753 [facility] [id number] Interpreted by: JUDITH NJ MD Electronically signed by: (RODRÍGUEZ LYNCH MD) Departure Impression Primary Impression: Musculoskeletal chest pain Disposition: HOME, SELF-CARE Condition: Stable Departure-Patient Inst. Decision time for Depature: 18:08 (RODRÍGUEZ LYNCH MD) Referrals: [facility]/ (PCP) Primary Care Physician BRINA CM MD (Family) Primary Care Physician Patient Instructions: Chest Pain That Is Not Caused by the Heart (DC) Add. Discharge Instructions: Continue your current medications as prescribed when you were discharged from the hospital after admission. You can take naproxen/Aleve 2 pills twice daily with food for chest pain. If you have high fever, worsening shortness of breath, vomiting, lightheadedness or dizziness or a passout spell please come back to the emergency department for reevaluation. Follow-up with [facility] as scheduled. BETTINA FRASER APRN Jan 19, 2022 16:51 RODRÍGUEZ LYNCH MD Jan 19, 2022 17:17
--- NOTE | 2022-01-19 17:55 | Diagnostic Imaging Report ---
INDICATION: Chest pain. EXAMINATION: AP view of the chest was obtained. COMPARISON: Study of 01/11/2022. FINDINGS: Heart size and pulmonary vascularity are within normal limits, and the lungs are clear, bilaterally. IMPRESSION: Unremarkable chest. Dictated by: Dictated on workstation # [id number]
[2022-01-19 18:15] VITALS: BP 157/88
== END 2022-01-19 18:15 | disposition home or self-care (01) ==
LOC: EDUNIT# 16:20 → ER 16:22
DX: R07.89 Other chest pain (principal); R22.43 Localized swelling, mass and lump, lower limb, bilateral; E66.01 Morbid (severe) obesity due to excess calories; I10 Essential (primary) hypertension; F17.200 Nicotine dependence, unspecified, uncomplicated; Z28.310 Unvaccinated for COVID-19; Z68.43 Body mass index [BMI] 50.0-59.9, adult
CPT/HCPCS: 71045; 93005

== ENCOUNTER 2022-02-22 07:12 | Emergency (ER) | payer MEDICAID ==
[~2022-02-22] VITALS: Ht 180 cm; Wt 163.0 kg
[2022-02-22] MEDS ORDERED: RT-ALBUTEROL HFA 8.5 GM INHALER IH STA (07:36)
--- NOTE | 2022-02-22 07:43 | ED General ---
General Chief Complaint: Cough/Cold/Flu Symptoms Stated Complaint: WEAKNESS | COUGH | ACHES Nursing Triage Note: PT AMB TO RM 9 PT CO OF FEVER, BODY ACHES, COUGH, SCHMITT, AND NAUSEA STARTED THIS AM. STATES PEOPLE AT WORK SICK Source of Information: Patient Exam Limitations: No Limitations History of Present Illness Date Seen by Provider: Feb 22, 2022 Time Seen by Provider: 07:20 Initial Comments This 36-year-old woman presents to the emergency room in acute distress from flulike symptoms. Symptoms started abruptly this morning and include fever, myalgia, cough, headaches, wheezing, shortness of breath, and nausea. She has not yet been vomiting. She has not been vaccinated for influenza or COVID-19. Review of patient's chart reveals that she has a history of noncompliance and a significant history of multiple positive drug screens that include amphetamines, methamphetamine, cocaine, and marijuana. Allergies and Home Medications Allergies Coded Allergies: No Known Drug Allergies (Unverified , 10/20/12) Patient Home Medication List Home Medication List Reviewed: Yes Albuterol Sulfate (Ventolin Hfa) 90 Mcg Hfa.aer.ad, 2 PUFF INH Q4H PRN for SHORTNESS OF BREATH, (Reported) Entered as Reported by: DENNIS STEARNS on 01/12/22 1142 Amlodipine Besylate (Amlodipine Besylate) 5 Mg Tablet, 5 MG PO DAILY Prescribed by: KRISTOFER BETANCUR on 01/16/22927 Aspirin (Aspirin EC) 325 Mg Tablet.dr, 325-650 MG PO Q6H PRN for PAIN-MILD (1- 4), (Reported) Entered as Reported by: DENNIS STEARNS on 01/12/22 1142 Benzonatate (Tessalon Perles) 100 Mg Capsule, 200 MG PO TID PRN for COUGH Prescribed by: SHEILA WALTERS on 02/22/22 1137 Famotidine (Famotidine) 20 Mg Tablet, 20 MG PO BID Prescribed by: KRISTOFER BETANCUR on 01/16/22927 Fluticasone Propion/Salmeterol (Fluticasone-Salmeterol 500-50) 500 Mcg-50 Mcg/Dose Blst.w.dev, 1 PUFF INH BID Prescribed by: RKISTOFER BETANCUR on 01/16/22927 Hydrocodone Bit/Acetaminophen (HYDROcodone/APAP 5 MG/325 MG TAB) 1 Tab Tab, 1 EA PO Q4H PRN for MOD Prescribed by: KRISTOFER BETANCUR on 01/16/22927 Ibuprofen (Ibuprofen) 200 Mg Tablet, 400-800 MG PO Q8H PRN for PAIN-MILD (1-4), (Reported) Entered as Reported by: DENNIS STEARNS on 01/12/22 114 Ipratropium/Albuterol Sulfate (Iprat-Albut 0.5-3(2.5) mg/3 ml) 0.5 Mg-3 Mg (2.5 Mg Base)/3 Ml Ampul.neb, 3 ML IH Q4H, (Reported) Entered as Reported by: DENNIS STEARNS on 01/12/22 1142 L.acidoph & Paracasei,B.lactis (Probiotic) 10 Billion Cell Capsule, 1 EACH PO DAILY, (Reported) Entered as Reported by: DENNIS STEARNS on 01/12/22 114 Loratadine (Loratadine) 10 Mg Tablet, 10 MG PO DAILY Prescribed by: KRISTOFER BETANCUR on 01/16/22927 Lorazepam (Ativan) 0.5 Mg Tablet, 0.5 MG PO TID PRN for ANXIETY Prescribed by: KRISTOFER BETANCUR on 01/16/22927 Losartan Potassium (Losartan Potassium) 50 Mg Tablet, 50 MG PO DAILY Prescribed by: KRISTOFER BETANCUR on 01/16/22927 Montelukast Sodium (Montelukast Sodium) 10 Mg Tablet, 10 MG PO HS Prescribed by: KRISTOFER BETANCUR on 01/16/22927 Ondansetron (Ondansetron Odt) 4 Mg Tab.rapdis, 4 MG SL Q4H PRN for NAUSEA/VOMITING Prescribed by: SHEILA WALTERS on 02/22/22 113 Oseltamivir Phosphate (Tamiflu) 75 Mg Cap, 75 MG PO BID Prescribed by: SHEILA WALTERS on 02/22/221136 Pantoprazole Sodium (Pantoprazole Sodium) 40 Mg Tablet.dr, 40 MG PO DAILY Prescribed by: KRISTOFER BETANCUR on 01/16/22927 Prednisone (Prednisone) 10 Mg Tab.ds.pk, 10 MG PO DAILY Prescribed by: KRISTOFER BETANCUR on 01/16/22 0928 Tiotropium Equality (Spiriva Respimat 2.5MCG/ACTUATION) 2.5 Mcg/Actuation Mist.inhal, 1 PUFF INH BID, (Reported) Entered as Reported by: MALI COOPER on 01/11/22 3820 Review of Systems Review of Systems Constitutional: see HPI EENTM: no symptoms reported Respiratory: see HPI Cardiovascular: no symptoms reported Gastrointestinal: see HPI Genitourinary: no symptoms reported : No Musculoskeletal: see HPI Skin: no symptoms reported Psychiatric/Neurological: See HPI Hematologic/Lymphatic: No Symptoms Reported Immunological/Allergic: no symptoms reported Past Lhwcwus-Rahffz-Yorlvo Hx Patient Social History Tobacco Use?: Yes Tobacco type used: Cigarettes Smoking Status: Current Everyday Smoker Substance use?: No Alcohol Use?: No Pt feels they are or have been: No Immunizations Up To Date Tetanus Booster (TDap): Unknown PED Vaccines UTD: No First/Initial COVID19 Vaccinat: Unvaccinated Second COVID19 Vaccination [place]: Unvaccinated Third COVID19 Vaccination Date: Unvaccinated Seasonal Allergies Seasonal Allergies: Yes Past Medical History Surgery/Hospitalization HX: COPD, asthma, htn Surgeries: No Respiratory: Yes (COVID-19 04/02/21--NO TREATMENT) Asthma Currently Using CPAP: No Currently Using BIPAP: No Cardiac: Yes (REFUSES TO TAKE MEDICATION) Hypertension Neurological: No : No 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 Disorders: Yes 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, 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 Sexually Transmitted Disease: Yes (HERPES,) HIV/AIDS: No Genitourinary: Yes UTI-Chronic Gastrointestinal: Yes Gastroesophageal Reflux, Hemorrhoids Musculoskeletal: No Endocrine: Yes (MORBID OBESITY) HEENT: No Loss of Vision: Denies Hearing Impairment: Denies Cancer: No Psychosocial: Yes (POLYSUBSTANCE ABUSE) Depression Integumentary: Yes Herpes Blood Disorders: No Adverse Reaction/Blood Tranf: No Family Medical History Asthma 19 FATHER G8 BROTHER Completed stroke MATERNAL GRANDFATHER Diabetes mellitus 19 FATHER 19 MOTHER Drug abuse 19 FATHER G8 BROTHER G8 BROTHER G8 BROTHER FH: breast cancer MATERNAL GRANDMOTHE ( AGE 71) Headache disorder G8 SISTER Hypertension 19 MOTHER G8 BROTHER Psychosocial problem G8 BROTHER Seizure disorder MATERNAL GRANDMOTHE SOCIAL HISTORY: -SMOKES 1 PPD -ETOH--"COUPLE OF TIMES A WEEK" -DRUGS--SNORTS COCAINE, SMOKES METH AND MARIJUANA. ALSO HX OF ECSTASY USE EXTREME NON-COMPLIANCE IN ALL ASPECTS OF CARE Physical Exam Vital Signs Vital Signs - First Documented 02/22/22 07:15 Temp 38.7 Pulse 101 Resp 18 B/P (MAP) 182/109 (133) Pulse Ox 99 Capillary Refill : Less Than 3 Seconds Height, Weight, BMI Height: 5'11.00" Weight: 362lbs. 0.8oz. 164.801005lc; 50.00 BMI Method:Stated General Appearance: WD/WN, Moderate Distress, Obese HEENT: Normal ENT Inspection Neck: Normal Inspection Respiratory: No Accessory Muscle Use, No Respiratory Distress, Stridor (Minor), Wheezing (Minor) Cardiovascular: No Edema, No Murmur, Tachycardia Gastrointestinal: Non Tender, Soft Extremity: Normal Inspection, No Pedal Edema, Other (Exam obscured by body habitus) Neurologic/Psychiatric: Alert, No Motor/Sensory Deficits, Other (Emotionally distraught) Skin: Normal Color, Warm/Dry Progress/Results/Core Measures Suspected Sepsis SIRS Temperature: Pulse: 101 Respiratory Rate: 18 Laboratory Tests 02/22/22 07:25: White Blood Count 7.4 Blood Pressure 182 /109 Mean: 133 Laboratory Tests 02/22/22 07:25: Creatinine 0.83, Platelet Count 306, Total Bilirubin 0.4 Results/Orders Lab Results Laboratory Tests Test 02/22/22 07:20 02/22/22 07:25 02/22/22 08:26 Range/Units Influenza Type A (RT-PCR) Detected H Not Detecte Influenza Type B (RT-PCR) Not Detected Not Detecte SARS-CoV-2 RNA (RT-PCR) Not Detected Not Detecte White Blood Count 7.4 4.3-11.0 10^3/uL Red Blood Count 4.65 3.80-5.11 10^6/uL Hemoglobin 12.1 11.5-16.0 g/dL Hematocrit 40 35-52 % Mean Corpuscular Volume 86 80-99 fL Mean Corpuscular Hemoglobin 26 25-34 pg Mean Corpuscular Hemoglobin Concent 30 L 32-36 g/dL Red Cell Distribution Width 13.4 10.0-14.5 % Platelet Count 306 130-400 10^3/uL Mean Platelet Volume 9.2 9.0-12.2 fL Immature Granulocyte % (Auto) 0 % Neutrophils (%) (Auto) 79 H 42-75 % Lymphocytes (%) (Auto) 8 L 12-44 % Monocytes (%) (Auto) 10 0-12 % Eosinophils (%) (Auto) 2 0-10 % Basophils (%) (Auto) 1 0-10 % Neutrophils # (Auto) 5.9 1.8-7.8 10^3/uL Lymphocytes # (Auto) 0.6 L 1.0-4.0 10^3/uL Monocytes # (Auto) 0.8 0.0-1.0 10^3/uL Eosinophils # (Auto) 0.1 0.0-0.3 10^3/uL Basophils # (Auto) 0.0 0.0-0.1 10^3/uL Immature Granulocyte # (Auto) 0.0 0.0-0.1 10^3/uL Sodium Level 136 135-145 MMOL/L Potassium Level 3.8 3.6-5.0 MMOL/L Chloride Level 107 98-107 MMOL/L Carbon Dioxide Level 23 21-32 MMOL/L Anion Gap 6 5-14 MMOL/L Blood Urea Nitrogen 6 L 7-18 MG/DL Creatinine 0.83 0.60-1.30 MG/DL Estimat Glomerular Filtration Rate 94 BUN/Creatinine Ratio 7 Glucose Level 106 H 70-105 MG/DL Calcium Level 8.7 8.5-10.1 MG/DL Corrected Calcium 9.1 8.5-10.1 MG/DL Magnesium Level 1.6 1.6-2.4 MG/DL Total Bilirubin 0.4 0.1-1.0 MG/DL Aspartate Amino Transf (AST/SGOT) 19 5-34 U/L Alanine Aminotransferase (ALT/SGPT) 16 0-55 U/L Alkaline Phosphatase 86 40-136 U/L Total Protein 6.6 6.4-8.2 GM/DL Albumin 3.5 3.2-4.5 GM/DL Serum Test, Qualitative NEGATIVE NEGATIVE Urine Opiates Screen NEGATIVE NEGATIVE Urine Oxycodone Screen NEGATIVE NEGATIVE Urine Methadone Screen NEGATIVE NEGATIVE Urine Propoxyphene Screen NEGATIVE NEGATIVE Urine Barbiturates Screen NEGATIVE NEGATIVE Ur Tricyclic Antidepressants Screen NEGATIVE NEGATIVE Urine Phencyclidine Screen NEGATIVE NEGATIVE Urine Amphetamines Screen POSITIVE H NEGATIVE Urine Methamphetamines Screen POSITIVE H NEGATIVE Urine Benzodiazepines Screen NEGATIVE NEGATIVE Urine Cocaine Screen NEGATIVE NEGATIVE Urine Cannabinoids Screen POSITIVE H NEGATIVE My Orders Orders - SHEILA PICKENS MD Covid 19 Inhouse Test (02/22/22 07:15) Influenza A And B By Pcr (02/22/22 07:15) Ondansetron Injection (Zofran Injectio (02/22/22 07:45) Ketorolac Injection (Toradol Injection) (02/22/22 07:45) Ed Iv/Invasive Line Start (02/22/22 07:35) Lactated Ringers (Lr 1000 Ml Iv Solution (02/22/22 07:45) Albuterol Inhaler (Albuterol) (02/22/22 07:36) Drug Screen Stat (Urine) (02/22/22 07:43) Hcg,Qualitative Serum (02/22/22 07:43) Acetaminophen Tablet (Tylenol Tablet) (02/22/22 07:45) Cbc With Automated Diff (02/22/22 09:09) Comprehensive Metabolic Panel (02/22/22 09:09) Magnesium (02/22/22 09:09) Fentanyl Inj (Sublimaze Injection) (02/22/22 11:30) Benzonatate Capsule (Tessalon Perles) (02/22/22 11:30) Medications Given in ED Vital Signs/I&O 02/22/22 02/22/22 07:15 11:58 Temp 38.7 36.8 Pulse 101 88 Resp 18 18 B/P (MAP) 182/109 (133) 152/90 Pulse Ox 99 99 Capillary Refill : Less Than 3 Seconds Blood Pressure Mean: 133 Progress Note #1: Time: 07:42 Progress Note Patient was interviewed and examined. Influenza and COVID-19 swabs are pending. She is being treated with Zofran, Toradol, IV fluids, albuterol inhaler, and Tylenol. Remainder of treatment will be pending results of her studies. Progress Note #2: Progress Note Patient had significant improvement with treatment. She was additionally treated with fentanyl for residual pain and Tessalon Perles for persistent cough. We did address the substance abuse as well. Tamiflu prescription was provided. See discharge instructions for further discussion. Departure Impression Primary Impression: Influenza A Additional Impressions: Asthma exacerbation Qualified Codes: J45.901 - Unspecified asthma with (acute) exacerbation Polysubstance abuse Disposition: HOME, SELF-CARE Condition: Improved Departure-Patient Inst. Decision time for Depature: 11:33 Referrals: [facility] [place] (PCP) Primary Care Physician BRINA CM MD (Family) Primary Care Physician Patient Instructions: Flu, OUTPT SUBSTANCE ABUSE RESOURCE Add. 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 Complete the entire 10 doses as prescribed, even if you are feeling better before finishing all 10 doses. For pain and fever you may take Tylenol (acetaminophen) up to 1000 mg every 6 ho urs as needed and/or ibuprofen up to 600 mg every 6 hours as needed. Use Zofran (ondansetron) as prescribed for nausea and vomiting. Drink plenty of clear liquids to stay well-hydrated. Use your inhaler 1 to 4 puffs every 4 hours as needed for shortness of breath and wheezing. Discontinue use of illicit substances such as methamphetamine, marijuana, etc. as these substances will worsen your illness and may have devastating impacts on your long-term health. Seek assistance with a substance abuse treatment f acility or support service. Attached is a packet including some of those resources. Some local resources include the [facility] ([phone]), [facility] ([phone]), [facility] in [place] ), or local chapters of . Check with your health insurance provider as well because they may have preferred resources they recommend. All discharge instructions reviewed with patient and/or family. Voiced understanding. Scripts Benzonatate (TESSALON PERLES) 100 Mg Capsule 200 MG PO TID PRN for COUGH, #20 CAP Prov: SHEILA PICKENS MD 02/22/22 Ondansetron (Ondansetron Odt) 4 Mg Tab.rapdis 4 MG SL Q4H PRN for NAUSEA/VOMITING, #10 TAB Prov: SHEILA PICKENS MD 02/22/22 Oseltamivir Phosphate (Tamiflu) 75 Mg Cap 75 MG PO BID, #10 CAP Prov: SHEILA PICKENS MD 02/22/22 Work/School Note: Work Release Form Date Seen in the Emergency Department: Feb 22, 2022 Return to Work: Feb 25, 2022 Restrictions: Return-No Fever (24hrs), Return-No Vomiting(24hrs) Copy Copies To 1: BRINA CM MD, JOSHUA T MD Feb 22, 2022 07:43
[2022-02-22] MEDS ORDERED: LACTATED RINGERS 1,000 ML IV ONE (07:45)
[2022-02-22] MEDS ORDERED: KETOROLAC 30 MG/ML VIAL IVP ONE (07:45)
[2022-02-22] MEDS ORDERED: ACETAMINOPHEN 500 MG TAB (TYLENOL) PO ONE (07:45)
[2022-02-22] MEDS ORDERED: ONDANSETRON 4 MG/2 ML (SDV) Z0FRAN IVP ONE (07:45)
[2022-02-22 08:51] LABS: AMPHETAMINE SCREEN, URINE POSITIVE (NEGATIVE); BARBITURATE SCREEN URINE NEGATIVE (NEGATIVE); BENZODIAZEPINES SCREEN URINE NEGATIVE (NEGATIVE); CANNABINOID SCREEN, URINE POSITIVE (NEGATIVE); COCAINE SCREEN URINE NEGATIVE (NEGATIVE); METHADONE STAT NEGATIVE (NEGATIVE); OPIATE SCREEN URINE NEGATIVE (NEGATIVE); OXYCODONE STAT NEGATIVE (NEGATIVE); PROPOXYPHENE STAT NEGATIVE (NEGATIVE); TRICYCLIC ANTIDEPRESSANTS SCRE NEGATIVE (NEGATIVE)
[2022-02-22 09:32] LABS: ALBUMIN 3.5 GM/DL (3.2-4.5); POTASSIUM 3.8 MMOL/L (3.6-5.0)
[2022-02-22 09:34] LABS: CALCIUM 8.7 MG/DL (8.5-10.1)
[2022-02-22 09:35] LABS: TOTAL PROTEIN 6.6 GM/DL (6.4-8.2)
[2022-02-22 09:36] LABS: BASOPHILS % (AUTO) 1 % (0-10); EOSINOPHILS # (AUTO) 0.1 10^3/uL (0.0-0.3); EOSINOPHILS % (AUTO) 2 % (0-10); HEMATOCRIT 40 % (35-52); HEMOGLOBIN 12.1 g/dL (11.5-16.0); LYMPHOCYTES # (AUTO) 0.6 10^3/uL (1.0-4.0); LYMPHOCYTES % (AUTO) 8 % (12-44); MEAN CORPUSCULAR HEMOGLOBIN 26 pg (25-34); MEAN CORPUSCULAR HGB CONC 30 g/dL (32-36); MEAN CORPUSCULAR VOLUME 86 fL (80-99); MEAN PLATELET VOLUME 9.2 fL (9.0-12.2); MONOCYTES # (AUTO) 0.8 10^3/uL (0.0-1.0); MONOCYTES % (AUTO) 10 % (0-12); NEUTROPHILS # (AUTO) 5.9 10^3/uL (1.8-7.8); NEUTROPHILS % (AUTO) 79 % (42-75); PLATELET COUNT 306 10^3/uL (130-400); WHITE BLOOD COUNT 7.4 10^3/uL (4.3-11.0)
[2022-02-22 09:37] LABS: BILIRUBIN,TOTAL 0.4 MG/DL (0.1-1.0)
[2022-02-22 09:38] LABS: CREATININE SERUM 0.83 MG/DL (0.60-1.30)
[2022-02-22 09:41] LABS: MAGNESIUM 1.6 MG/DL (1.6-2.4)
[2022-02-22] MEDS ORDERED: fentaNYL INJ 100 MCG/2 ML AMP IVP ONE (11:30)
[2022-02-22] MEDS ORDERED: BENZONATATE 100 MG (TESSALON) CAPSULE PO ONE (11:30)
[2022-02-22] MEDS ORDERED: OSLT75C PO (11:37)
[2022-02-22] MEDS ORDERED: BENZ100C18 PO (11:37)
[2022-02-22] MEDS ORDERED: ONDA4TAB11 SL (11:37)
[2022-02-22 11:58] VITALS: BP 152/90
== END 2022-02-22 12:00 | disposition home or self-care (01) ==
LOC: EDUNIT# 07:12 → ER 07:14
DX: J10.1 Influenza due to other identified influenza virus with other respiratory manifestations (principal); J45.901 Unspecified asthma with (acute) exacerbation; F19.10 Other psychoactive substance abuse, uncomplicated; E66.01 Morbid (severe) obesity due to excess calories; F17.210 Nicotine dependence, cigarettes, uncomplicated; Z68.43 Body mass index [BMI] 50.0-59.9, adult; Z86.16 Personal history of COVID-19; Z20.822 Contact with and (suspected) exposure to COVID-19; Z28.310 Unvaccinated for COVID-19
CPT/HCPCS: 36415; 80053; 80306; 83735; 84703; 85025; 87636; 99283

== ENCOUNTER 2022-02-22 18:28 | Emergency (ER) | payer MEDICAID ==
[~2022-02-22] VITALS: Ht 180 cm; Wt 167.8 kg
[~2022-02-22 18:28] MED LIST changes: +ONDA4TAB11 SL; +OSLT75C PO
--- NOTE | 2022-02-22 18:56 | ED General ---
General Chief Complaint: Cough/Cold/Flu Symptoms Stated Complaint: FLU +/CHEST TIGHTNESS Nursing Triage Note: pt presents to ed via ems from home with complaints of increased soa, malaise, and chest tightness. pt was seen in ed this morning and diagnosed with flu a. pt reports she took tylenol aprox 2 hrs ago. pt was anbale to fill tamiflu script due to shortage at pharmacy. Source of Information: Patient (EXTREMELY DIFFICULT HISTORIAN. NOT WANTING TO TALK OR ANSWER QUESTIONS ON ARRIVAL--ESSENTIALLY IGNORES MYSELF AND RN, AND OTHER ER STAFF. ), Old Records History of Present Illness Date Seen by Provider: Feb 22, 2022 Time Seen by Provider: 18:50 Initial Comments PT ARRIVES VIA EMS FROM HOME PT WAS SEEN HERE EARLIER TODAY, AND DX WITH INFLUENZA A. SHE WAS GIVEN A PRESCRIPTION FOR TAMIFLU BUT WAS NOT ABLE TO FILL IT DUE TO PHARMACY BEING CURRENTLY OUT OF THE MEDICATION. PT IS REFUSING TO TALK TO ME OR ANSWER ANY OF MY QUESTIONS ALL INFORMATION IS FROM NURSING NOTES, AND PRIOR ER VISIT FROM EARLIER TODAY. PCP: DANAE Allergies and Home Medications Allergies Coded Allergies: No Known Drug Allergies (Unverified , 10/20/12) Patient Home Medication List Home Medication List Reviewed: Yes Albuterol Sulfate (Ventolin Hfa) 90 Mcg Hfa.aer.ad, 2 PUFF INH Q4H PRN for SHORTNESS OF BREATH, (Reported) Entered as Reported by: DENNIS STEARNS on 01/12/22 1142 Amlodipine Besylate (Amlodipine Besylate) 5 Mg Tablet, 5 MG PO DAILY Prescribed by: KRISTOFER BETANCUR on 01/16/22927 Aspirin (Aspirin EC) 325 Mg Tablet.dr, 325-650 MG PO Q6H PRN for PAIN-MILD (1-4) , (Reported) Entered as Reported by: DENNIS STEARNS on 01/12/22 1142 Benzonatate (Tessalon Perles) 100 Mg Capsule, 200 MG PO TID PRN for COUGH Prescribed by: SHEILA WALTERS on 02/22/22 1137 Famotidine (Famotidine) 20 Mg Tablet, 20 MG PO BID Prescribed by: KRISTOFER BETANCUR on 01/16/22927 Fluticasone Propion/Salmeterol (Fluticasone-Salmeterol 500-50) 500 Mcg-50 Mcg/Dose Blst.w.dev, 1 PUFF INH BID Prescribed by: KRISTOFER BETANCUR on 01/16/22927 Hydrocodone Bit/Acetaminophen (HYDROcodone/APAP 5 MG/325 MG TAB) 1 Tab Tab, 1 EA PO Q4H PRN for MOD Prescribed by: KRISTOFER BETANCUR on 01/16/22927 Ibuprofen (Ibuprofen) 200 Mg Tablet, 400-800 MG PO Q8H PRN for PAIN-MILD (1-4), (Reported) Entered as Reported by: DENNIS STEARNS on 01/12/22 114 Ipratropium/Albuterol Sulfate (Iprat-Albut 0.5-3(2.5) mg/3 ml) 0.5 Mg-3 Mg (2.5 Mg Base)/3 Ml Ampul.neb, 3 ML IH Q4H, (Reported) Entered as Reported by: DENNIS STEARNS on 01/12/22 114 L.acidoph & Paracasei,B.lactis (Probiotic) 10 Billion Cell Capsule, 1 EACH PO DAILY, (Reported) Entered as Reported by: DENNIS STEARNS on 01/12/22 114 Loratadine (Loratadine) 10 Mg Tablet, 10 MG PO DAILY Prescribed by: KRISTOFER BETANCUR on 01/16/22927 Lorazepam (Ativan) 0.5 Mg Tablet, 0.5 MG PO TID PRN for ANXIETY Prescribed by: KRISTOFER BETANCUR on 01/16/22927 Losartan Potassium (Losartan Potassium) 50 Mg Tablet, 50 MG PO DAILY Prescribed by: KRISTOFER BETANCUR on 01/16/22927 Montelukast Sodium (Montelukast Sodium) 10 Mg Tablet, 10 MG PO HS Prescribed by: KRISTOFER BETANCUR on 01/16/22927 Ondansetron (Ondansetron Odt) 4 Mg Tab.rapdis, 4 MG SL Q4H PRN for NAUSEA/VOMITING Prescribed by: SHEILA WALTERS on 02/22/22 113 Oseltamivir Phosphate (Tamiflu) 75 Mg Cap, 75 MG PO BID Prescribed by: SHEILA WALTERS on 02/22/22 113 Pantoprazole Sodium (Pantoprazole Sodium) 40 Mg Tablet.dr, 40 MG PO DAILY Prescribed by: KRISTOFER BETANCUR on 01/16/22927 Prednisone (Prednisone) 10 Mg Tab.ds.pk, 10 MG PO DAILY Prescribed by: KRISTOFER BETANCUR on 01/16/22927 Tiotropium [place] (Spiriva Respimat 2.5MCG/ACTUATION) 2.5 Mcg/Actuation Mist.inhal, 1 PUFF INH BID, (Reported) Entered as Reported by: MALI COOPER on 01/11/22 3780 Review of Systems Review of Systems Constitutional: see HPI (PT WILL NOT ANSWER MY QUESTIONS. ) Past Qjcreho-Ixyozw-Utapqv Hx Patient Social History Tobacco Use?: Yes Tobacco type used: Cigarettes Smoking Status: Current Everyday Smoker Use of E-Cig and/or Vaping dev: No Substance use?: Yes Substance type: Methamphetamine, Marijuana Alcohol Use?: Yes Alcohol Frequency: Once in a while Pt feels they are or have been: No Immunizations Up To Date Tetanus Booster (TDap): Unknown PED Vaccines UTD: No First/Initial COVID19 Vaccinat: Unvaccinated Second COVID19 Vaccination [place]: Unvaccinated Third COVID19 Vaccination Date: Unvaccinated Seasonal Allergies Seasonal Allergies: Yes Past Medical History Surgery/Hospitalization HX: COPD, asthma, htn Surgeries: No Respiratory: Yes (COVID-19 04/02/21--NO TREATMENT) Asthma Currently Using CPAP: No Currently Using BIPAP: No Cardiac: Yes (REFUSES TO TAKE MEDICATION) Hypertension Neurological: No 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 Disorders: Yes 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, Ovarian Cyst [employer] History: IUD Sexually Transmitted Disease: Yes (HERPES,) HIV/AIDS: No Genitourinary: Yes UTI-Chronic Gastrointestinal: Yes Gastroesophageal Reflux, Hemorrhoids Musculoskeletal: No Endocrine: Yes (MORBID OBESITY) HEENT: No Loss of Vision: Denies Hearing Impairment: Denies Cancer: No Psychosocial: Yes (POLYSUBSTANCE ABUSE) Depression Integumentary: Yes Herpes Blood Disorders: No Adverse Reaction/Blood Tranf: No Family Medical History Asthma 19 FATHER G8 BROTHER Completed stroke MATERNAL GRANDFATHER Diabetes mellitus 19 FATHER 19 MOTHER Drug abuse 19 FATHER G8 BROTHER G8 BROTHER G8 BROTHER FH: breast cancer MATERNAL GRANDMOTHE ( AGE 71) Headache disorder G8 SISTER Hypertension 19 MOTHER G8 BROTHER Psychosocial problem G8 BROTHER Seizure disorder MATERNAL GRANDMOTHE SOCIAL HISTORY: -SMOKES 1 PPD -ETOH--"COUPLE OF TIMES A WEEK" -DRUGS--SNORTS COCAINE, SMOKES METH AND MARIJUANA. ALSO HX OF ECSTASY USE EXTREME NON-COMPLIANCE IN ALL ASPECTS OF CARE Physical Exam Vital Signs Vital Signs - First Documented 02/22/22 18:32 Temp 39.3 Pulse 117 Resp 30 B/P (MAP) 155/136 (142) Pulse Ox 97 O2 Delivery Nasal Cannula O2 Flow Rate 2.00 Capillary Refill : Less Than 3 Seconds Height, Weight, BMI Height: 5'11.00" Weight: 362lbs. 0.8oz. 164.010687cz; 51.00 BMI Method:Stated General Appearance: No Apparent Distress, Obese (MORBIDLY OBESE) Respiratory: Normal Breath Sounds, No Accessory Muscle Use, No Respiratory Distress Cardiovascular: Regular Rate, Rhythm Extremity: Normal Capillary Refill, No Pedal Edema Neurologic/Psychiatric: Alert, No Motor/Sensory Deficits Skin: Normal Color (PT IS BLACK), Warm/Dry Progress/Results/Core Measures Suspected Sepsis SIRS Temperature: Pulse: 117 Respiratory Rate: 30 Laboratory Tests 02/22/22 19:15: White Blood Count 6.7 Blood Pressure 155 /136 Mean: 142 Laboratory Tests 02/22/22 19:15: Creatinine 0.78, Platelet Count 241, Total Bilirubin 0.3 Results/Orders Lab Results Laboratory Tests Test 02/22/22 19:15 Range/Units White Blood Count 6.7 4.3-11.0 10^3/uL Red Blood Count 4.44 3.80-5.11 10^6/uL Hemoglobin 11.7 11.5-16.0 g/dL Hematocrit 38 35-52 % Mean Corpuscular Volume 85 80-99 fL Mean Corpuscular Hemoglobin 26 25-34 pg Mean Corpuscular Hemoglobin Concent 31 L 32-36 g/dL Red Cell Distribution Width 13.2 10.0-14.5 % Platelet Count 241 130-400 10^3/uL Mean Platelet Volume 8.8 L 9.0-12.2 fL Immature Granulocyte % (Auto) 0 % Neutrophils (%) (Auto) 78 H 42-75 % Lymphocytes (%) (Auto) 6 L 12-44 % Monocytes (%) (Auto) 15 H 0-12 % Eosinophils (%) (Auto) 1 0-10 % Basophils (%) (Auto) 0 0-10 % Neutrophils # (Auto) 5.2 1.8-7.8 10^3/uL Lymphocytes # (Auto) 0.4 L 1.0-4.0 10^3/uL Monocytes # (Auto) 1.0 0.0-1.0 10^3/uL Eosinophils # (Auto) 0.0 0.0-0.3 10^3/uL Basophils # (Auto) 0.0 0.0-0.1 10^3/uL Immature Granulocyte # (Auto) 0.0 0.0-0.1 10^3/uL Neutrophils % (Manual) 80 % Lymphocytes % (Manual) 11 % Monocytes % (Manual) 7 % Eosinophils % (Manual) 2 % Blood Morphology Comment NORMAL Sodium Level 137 135-145 MMOL/L Potassium Level 3.2 L 3.6-5.0 MMOL/L Chloride Level 105 98-107 MMOL/L Carbon Dioxide Level 23 21-32 MMOL/L Anion Gap 9 5-14 MMOL/L Blood Urea Nitrogen 5 L 7-18 MG/DL Creatinine 0.78 0.60-1.30 MG/DL Estimat Glomerular Filtration Rate 102 BUN/Creatinine Ratio 6 Glucose Level 91 70-105 MG/DL Calcium Level 8.2 L 8.5-10.1 MG/DL Corrected Calcium 8.7 8.5-10.1 MG/DL Magnesium Level 1.5 L 1.6-2.4 MG/DL Total Bilirubin 0.3 0.1-1.0 MG/DL Aspartate Amino Transf (AST/SGOT) 16 5-34 U/L Alanine Aminotransferase (ALT/SGPT) 16 0-55 U/L Alkaline Phosphatase 83 40-136 U/L Troponin I < 0.028 <0.028 NG/ML B-Type Natriuretic Peptide 105.0 H <100.0 PG/ML Total Protein 6.1 L 6.4-8.2 GM/DL Albumin 3.4 3.2-4.5 GM/DL Serum Test, Qualitative NEGATIVE NEGATIVE Serum Alcohol < 10 <10 MG/DL My Orders Orders - BRETT HASSAN DO Ekg Tracing (02/22/22 18:55) Monitor-Rhythm Ecg Trace Only (02/22/22 18:55) Chest 1 View, Ap/Pa Only (02/22/22 18:55) Alcohol (02/22/22 18:56) Bnp [place] (02/22/22 18:56) Cbc With Automated Diff (02/22/22 18:56) Comprehensive Metabolic Panel (02/22/22 18:56) Magnesium (02/22/22 18:56) Troponin I Valerie (02/22/22 18:56) Ed Iv/Invasive Line Start (02/22/22 18:59) Ns Iv 1000 Ml (Sodium Chloride 0.9%) (02/22/22 19:00) Ondansetron Injection (Zofran Injectio (02/22/22 19:00) Acetaminophen Tablet (Tylenol Tablet) (02/22/22 19:00) Ibuprofen Tablet (Motrin Tablet) (02/22/22 19:00) Hcg,Qualitative Serum (02/22/22 19:31) Manual Differential (02/22/22 19:15) Medications Given in ED Current Medications Medications Dose Ordered Sig/Violette Route Start Time Stop Time Status Last Admin Dose Admin Acetaminophen 1,000 mg ONCE ONCE PO 02/22/22 19:00 02/22/22 19:01 DC 02/22/22 19:06 1,000 MG Ibuprofen 800 mg ONCE ONCE PO 02/22/22 19:00 02/22/22 19:01 DC 02/22/22 19:06 800 MG Ondansetron HCl 4 mg ONCE ONCE IVP 02/22/22 19:00 02/22/22 19:01 DC 02/22/22 19:06 4 MG Vital Signs/I&O 02/22/22 02/22/22 02/22/22 18:32 19:06 20:22 Temp 39.3 39.4 38.2 Pulse 117 101 Resp 30 22 B/P (MAP) 155/136 (142) 154/78 Pulse Ox 97 94 O2 Delivery Nasal Cannula Room Air O2 Flow Rate 2.00 02/23/22 00:00 Intake Total 400 ml Balance 400 ml Capillary Refill : Less Than 3 Seconds Blood Pressure Mean: 142 Progress Note : Progress Note PPE WORN PT NOTED TO HAVE TEMP OF 103.3 ON ARRIVAL HERE. GIVEN: -IV FLUIDS -ZOFRAN -TYLENOL AND MOTRIN FOR FEVER PT REFUSED TO GIVE URINE SPECIMEN. SHE NEEDED TO VOID SHORTLY AFTER ARRIVAL HERE, AND WAS GIVEN A SPECIMEN CUP AND ADVISED THAT SHE NEEDED TO GIVE A URINE SPECIMEN. PT REFUSED TO GIVE A SPECIMEN AND VOIDED IN TOILET. NO DETERIORATION IN PT'S CONDITION DURING ER STAY PT HAS LONG HISTORY OF EXTREME NON-COMPLIANCE IN ALL ASPECTS OF CARE. SHE HAS REPEATEDLY BEEN ADVISED THAT SHE NEEDS TO BE ON BLOOD PRESSURE M EDICATION, AND IT HAS BEEN PRESCRIBED MULTIPLE TIMES, AND SHE REFUSES TO TAKE IT. PT ALSO HAS AN EXTENSIVE HISTORY OF POLYSUBSTANCE ABUSE. OLD RECORDS REVIEWED, INCLUDING PRIOR ADMITS WITH H&P'S, PERTINENT TESTS, AND DISCHARGE SUMMARIES 1947--PT WANTING TO LEAVE. STATED TO RN THAT IS TIRED OF BEING HERE AND SHE IS HOT AND IS SWEATING. ADVISED HER THAT HER TEMP WAS STARTING TO COME DOWN WITH THE FLUIDS, TYLENOL AND MOTRIN. ADVISED HER THAT TEST RESULTS WERE NOT BACK. SHE INSISTS ON LEAVING. SHE REFUSES TO TALK TO ME OR EVEN ACKNOWLEDGE THAT I AM IN THE ROOM AND KEEPS EYES CLOSED AT ALL TIMES WHEN I AM IN THE ROOM. I DISCUSSED ANTICIPATED COURSE, SYMPTOMATIC TREATMENT, NEED FOR FOLLOW UP AND RETURN PRECAUTIONS. SHE WALKS OUT OF ER ON HER OWN WITHOUT DIFFICULTY. ECG Initial ECG Impression Date: Feb 22, 2022 Initial ECG Impression Time: 19:13 Initial ECG Rate: 105 Initial ECG Rhythm: S.Tach Initial ECG Impression: Nonspecific Changes Initial ECG Comparisson: Unchanged Diagnostic Imaging Comments CXR--PER RADIOLOGIST REPORT AT 192 Heart and mediastinal silhouette are normal in appearance. The lungs are clear. There is no pneumothorax or pleural fluid. IMPRESSION: Negative chest. Reviewed: Reviewed by Me Departure Impression Primary Impression: Influenza A Additional Impressions: Uncontrolled hypertension Non-compliance Disposition: 01 HOME, SELF-CARE Condition: Stable Departure-Patient Inst. Decision time for Depature: 20:10 Referrals: [facility]/ (PCP) Primary Care Physician BRINA CM MD (Family) Primary Care Physician Patient Instructions: Flu, Adult (DC) Add. Discharge Instructions: TYLENOL 1 GRAM PLUS MOTRIN 800 MG 4 TIMES A DAY FOR PAIN OR FEVER LOTS OF CLEAR LIQUIDS ROBITUSSIN DM FOR COUGH AND CONGESTION FOLLOW UP WITH YOUR DR IN 3-4 DAYS IF NO BETTER All discharge instructions reviewed with patient and/or family. Voiced understanding. BRETT HASSAN DO Feb 22, 2022 18:56
[2022-02-22] MEDS ORDERED: NS IV 1000 ML 1,000 ML IV SCH (19:00)
[2022-02-22] MEDS ORDERED: ONDANSETRON 4 MG/2 ML (SDV) Z0FRAN IVP ONE (19:00)
[2022-02-22] MEDS ORDERED: ACETAMINOPHEN 500 MG TAB (TYLENOL) PO ONE (19:00)
[2022-02-22] MEDS ORDERED: IBUPROFEN 800 MG (MOTRIN) TAB PO ONE (19:00)
--- NOTE | 2022-02-22 19:24 | Diagnostic Imaging Report ---
INDICATION: Chest pain Frontal chest obtained at 0701 p.m. and compared to 01/19/2022. Heart and mediastinal silhouette are normal in appearance. The lungs are clear. There is no pneumothorax or pleural fluid. IMPRESSION: Negative chest. Dictated by: Dictated on workstation # [id number]
[2022-02-22 19:31] LABS: BASOPHILS % (AUTO) 0 % (0-10); EOSINOPHILS % (AUTO) 1 % (0-10); HEMATOCRIT 38 % (35-52); HEMOGLOBIN 11.7 g/dL (11.5-16.0); LYMPHOCYTES # (AUTO) 0.4 10^3/uL (1.0-4.0); LYMPHOCYTES % (AUTO) 6 % (12-44); MEAN CORPUSCULAR HEMOGLOBIN 26 pg (25-34); MEAN CORPUSCULAR HGB CONC 31 g/dL (32-36); MEAN CORPUSCULAR VOLUME 85 fL (80-99); MEAN PLATELET VOLUME 8.8 fL (9.0-12.2); MONOCYTES % (AUTO) 15 % (0-12); NEUTROPHILS # (AUTO) 5.2 10^3/uL (1.8-7.8); NEUTROPHILS % (AUTO) 78 % (42-75); PLATELET COUNT 241 10^3/uL (130-400); WHITE BLOOD COUNT 6.7 10^3/uL (4.3-11.0)
[2022-02-22 19:50] LABS: ALANINE AMINOTRANSFERASE 16 U/L (0-55); ALBUMIN 3.4 GM/DL (3.2-4.5); ALKALINE PHOSPHATASE 83 U/L (40-136); BILIRUBIN,TOTAL 0.3 MG/DL (0.1-1.0); BUN/CREATININE RATIO 6; CALCIUM 8.2 MG/DL (8.5-10.1); CARBON DIOXIDE 23 MMOL/L (21-32); CHLORIDE 105 MMOL/L (98-107); CREATININE SERUM 0.78 MG/DL (0.60-1.30); GFR ESTIMATED 102; GLUCOSE 91 MG/DL (70-105); MAGNESIUM 1.5 MG/DL (1.6-2.4); POTASSIUM 3.2 MMOL/L (3.6-5.0); SODIUM 137 MMOL/L (135-145); TOTAL PROTEIN 6.1 GM/DL (6.4-8.2)
[2022-02-22 20:06] LABS: EOSINOPHILS % (MANUAL) 2 %; LYMPHOCYTES % (MANUAL) 11 %; MONOCYTES % (MANUAL) 7 %; NEUTROPHILS % (MANUAL) 80 %; RBC MORPH NORMAL
[2022-02-22 20:22] VITALS: BP 154/78
== END 2022-02-22 20:22 | disposition home or self-care (01) ==
LOC: EDUNIT# 18:28 → ER 18:29
DX: J10.1 Influenza due to other identified influenza virus with other respiratory manifestations (principal); I10 Essential (primary) hypertension; E66.9 Obesity, unspecified; F17.210 Nicotine dependence, cigarettes, uncomplicated; Z68.43 Body mass index [BMI] 50.0-59.9, adult; Z91.14 Patient's other noncompliance with medication regimen
CPT/HCPCS: 36415; 71045; 80053; 80320; 83735; 83880; 84484; 84703; 85007; 85027; 93005; 93041

== ENCOUNTER 2022-04-20 17:24 | Emergency (ER) | payer MEDICAID ==
[~2022-04-20] VITALS: Ht 180.3 cm; Wt 163.3 kg
[2022-04-20] MEDS ORDERED: ASPIRIN 81 MG CHEW (CHILDREN'S ASA) PO ONE (17:45)
[2022-04-20 17:53] LABS: BASOPHILS # (AUTO) 0.1 10^3/uL (0.0-0.1); BASOPHILS % (AUTO) 1 % (0-10); EOSINOPHILS # (AUTO) 0.5 10^3/uL (0.0-0.3); EOSINOPHILS % (AUTO) 6 % (0-10); HEMATOCRIT 42 % (35-52); HEMOGLOBIN 12.9 g/dL (11.5-16.0); LYMPHOCYTES # (AUTO) 2.3 10^3/uL (1.0-4.0); LYMPHOCYTES % (AUTO) 27 % (12-44); MEAN CORPUSCULAR HEMOGLOBIN 27 pg (25-34); MEAN CORPUSCULAR HGB CONC 31 g/dL (32-36); MEAN CORPUSCULAR VOLUME 86 fL (80-99); MEAN PLATELET VOLUME 8.8 fL (9.0-12.2); MONOCYTES # (AUTO) 0.6 10^3/uL (0.0-1.0); MONOCYTES % (AUTO) 7 % (0-12); NEUTROPHILS # (AUTO) 5.2 10^3/uL (1.8-7.8); NEUTROPHILS % (AUTO) 59 % (42-75); PLATELET COUNT 335 10^3/uL (130-400); WHITE BLOOD COUNT 8.7 10^3/uL (4.3-11.0)
[2022-04-20 17:54] LABS: ALBUMIN 3.9 GM/DL (3.2-4.5)
[2022-04-20 17:55] LABS: CALCIUM 9.1 MG/DL (8.5-10.1)
[2022-04-20 17:56] LABS: TOTAL PROTEIN 7.1 GM/DL (6.4-8.2)
[2022-04-20 17:58] LABS: BILIRUBIN,TOTAL 0.5 MG/DL (0.1-1.0)
[2022-04-20] MEDS: NITROGLYCERIN 0.4 MG SL TABS BTL 25'S SL PRN ×3 (17:59→18:24)
[2022-04-20 18:00] LABS: CREATININE SERUM 0.82 MG/DL (0.60-1.30); PROTHROMBIN TIME PATIENT 13.6 SEC (12.2-14.7)
--- NOTE | 2022-04-20 18:01 | ED Chest Pain ---
General Chief Complaint: Chest Pain Stated Complaint: CHEST PAIN, DIFFICULTY SWALLOWING, HIGH BP, COUGH Nursing Triage Note: pt ambulatory to room. states she was sitting down while at work approx 1 hr ago and started to feel dizzy and have dull cp that radiated to left arm. pt states she has also had left neck pain for a few days. pt states she stopped taking her blood pressure meds a few days ago while she was "doing recreational drugs because she was afraid there might be an interaction." pt reports dull pain of about a 3/10. pt is hypertensive on arrival. speech is normal, pt is A&Ox4 Source: patient, old records Exam Limitations: no limitations (SHEILA PICKENS MD) History of Present Illness Date Seen by Provider: Apr 20, 2022 Time Seen by Provider: 17:33 Initial Comments This 37-year-old woman presents to the emergency room with complaints of dizziness and chest pain radiating into her left arm that started about 1 hour prior to arrival. She admits to being noncompliant with her blood pressure medications. She believes her current blood pressure medicines are amlodipine and Cozaar. She has been taking amlodipine for a while and Cozaar was recently added but she has not yet taken it. She stopped taking all of her prescription medications because she started using methamphetamines 3 or 4 days ago and was concerned that her illicit substance use may adversely interact with her medications. Her method of usage was smoking. She denies any IV drug use. She is significantly hypertensive on arrival with systolic blood pressures over 200. (SHEILA PICKENS MD) Allergies and Home Medications Allergies Coded Allergies: No Known Drug Allergies (Unverified , 10/20/12) Patient Home Medication List Home Medication List Reviewed: Yes (SHEILA PICKENS MD) Albuterol Sulfate (Ventolin Hfa) 90 Mcg Hfa.aer.ad, 2 PUFF INH Q4H PRN for SHORTNESS OF BREATH, (Reported) Entered as Reported by: DENNIS STEARNS on 01/12/22 1142 Amlodipine Besylate (Amlodipine Besylate) 5 Mg Tablet, 5 MG PO DAILY Prescribed by: KRISTOFER BETANCUR on 01/16/22 0928 Aspirin (Aspirin EC) 325 Mg Tablet.dr, 325-650 MG PO Q6H PRN for PAIN-MILD (1- 4), (Reported) Entered as Reported by: DENNIS STEARNS on 01/12/22 1142 Benzonatate (Tessalon Perles) 100 Mg Capsule, 200 MG PO TID PRN for COUGH Prescribed by: SHEILA WALTERS on 02/22/22 1137 Famotidine (Famotidine) 20 Mg Tablet, 20 MG PO BID Prescribed by: KRISTOFER BETANCUR on 01/16/22927 Fluticasone Propion/Salmeterol (Fluticasone-Salmeterol 500-50) 500 Mcg-50 Mcg/Dose Blst.w.dev, 1 PUFF INH BID Prescribed by: KRISTOFER BETANCUR on 01/16/22927 Hydrocodone Bit/Acetaminophen (HYDROcodone/APAP 5 MG/325 MG TAB) 1 Tab Tab, 1 EA PO Q4H PRN for MOD Prescribed by: KRISTOFER BETANCUR on 01/16/22927 Ibuprofen (Ibuprofen) 200 Mg Tablet, 400-800 MG PO Q8H PRN for PAIN-MILD (1-4), (Reported) Entered as Reported by: DENNIS STEARNS on 01/12/22 1142 Ipratropium/Albuterol Sulfate (Iprat-Albut 0.5-3(2.5) mg/3 ml) 0.5 Mg-3 Mg (2.5 Mg Base)/3 Ml Ampul.neb, 3 ML IH Q4H, (Reported) Entered as Reported by: DENNIS STEARNS on 01/12/22 114 L.acidoph & Paracasei,B.lactis (Probiotic) 10 Billion Cell Capsule, 1 EACH PO DAILY, (Reported) Entered as Reported by: DENNIS STEARNS on 01/12/22 114 Loratadine (Loratadine) 10 Mg Tablet, 10 MG PO DAILY Prescribed by: KRISTOFER BETANCUR on 01/16/22927 Lorazepam (Ativan) 0.5 Mg Tablet, 0.5 MG PO TID PRN for ANXIETY Prescribed by: KRISTOFER BETANCUR on 01/16/22927 Losartan Potassium (Losartan Potassium) 50 Mg Tablet, 50 MG PO DAILY Prescribed by: KRISTOFER BETANCUR on 01/16/22927 Montelukast Sodium (Montelukast Sodium) 10 Mg Tablet, 10 MG PO HS Prescribed by: KRISTOFER BETANCUR on 01/16/22927 Ondansetron (Ondansetron Odt) 4 Mg Tab.rapdis, 4 MG SL Q4H PRN for NAUSEA/VOMITING Prescribed by: SHEILA WALTERS on 02/22/221136 Oseltamivir Phosphate (Tamiflu) 75 Mg Cap, 75 MG PO BID Prescribed by: SHEILA WALTERS on 02/22/22 113 Pantoprazole Sodium (Pantoprazole Sodium) 40 Mg Tablet.dr, 40 MG PO DAILY Prescribed by: KRISTOFER BETANCUR on 01/16/22927 Prednisone (Prednisone) 10 Mg Tab.ds.pk, 10 MG PO DAILY Prescribed by: KRISTOFER BETANCUR on 01/16/22927 Tiotropium [place] (Spiriva Respimat 2.5MCG/ACTUATION) 2.5 Mcg/Actuation Mist.inhal, 1 PUFF INH BID, (Reported) Entered as Reported by: MALI COOPER on 01/11/22 1190 Review of Systems Review of Systems Constitutional: no symptoms reported EENTM: No Symptoms Reported Respiratory: No Symptoms Reported Cardiovascular: See HPI Gastrointestinal: No Symptoms Reported Genitourinary: No Symptoms Reported Musculoskeletal: no symptoms reported Skin: no symptoms reported Psychiatric/Neurological: No Symptoms Reported Endocrine: No Symptoms Reported Hematologic/Lymphatic: No Symptoms Reported (SHEILA PICKENS MD) Past Nzmncid-Yjhmwq-Ufzshz Hx Patient Social History Tobacco Use?: Yes Smoking Status: Current Everyday Smoker Use of E-Cig and/or Vaping dev: No Substance use?: Yes Substance type: Methamphetamine, Marijuana Substance frequency: Once in a while Alcohol Use?: Yes Alcohol Frequency: Once in a while (SHEILA PICKENS MD) Immunizations Up To Date Tetanus Booster (TDap): Unknown PED Vaccines UTD: No First/Initial COVID19 Vaccinat: Unvaccinated Second COVID19 Vaccination [place]: Unvaccinated Third COVID19 Vaccination Date: Unvaccinated (SHEILA PICKENS MD) Seasonal Allergies Seasonal Allergies: Yes (SHEILA PICKENS MD) Past Medical History Surgery/Hospitalization HX: COPD, asthma, htn Surgeries: No Respiratory: Yes (COVID-19 04/02/21--NO TREATMENT) Asthma Currently Using CPAP: No Currently Using BIPAP: No Cardiac: Yes (REFUSES TO TAKE MEDICATION) Hypertension Neurological: No 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 Disorders: Yes 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, Ovarian Cyst [employer] History: IUD Sexually Transmitted Disease: Yes (HERPES,) HIV/AIDS: No Genitourinary: Yes UTI-Chronic Gastrointestinal: Yes Gastroesophageal Reflux, Hemorrhoids Musculoskeletal: No Endocrine: Yes (MORBID OBESITY) HEENT: No Loss of Vision: Denies Hearing Impairment: Denies Cancer: No Psychosocial: Yes (POLYSUBSTANCE ABUSE) Depression Integumentary: Yes Herpes Blood Disorders: No Adverse Reaction/Blood Tranf: No (SHEILA PICKENS MD) Respiratory: Yes (COVID 03/2021-NO HOSPITALIZATION) Asthma (BRETT HASSAN DO) Family Medical History Asthma 19 FATHER G8 BROTHER Completed stroke MATERNAL GRANDFATHER Diabetes mellitus 19 FATHER 19 MOTHER Drug abuse 19 FATHER G8 BROTHER G8 BROTHER G8 BROTHER FH: breast cancer MATERNAL GRANDMOTHE ( AGE 71) Headache disorder G8 SISTER Hypertension 19 MOTHER G8 BROTHER Psychosocial problem G8 BROTHER Seizure disorder MATERNAL GRANDMOTHE SOCIAL HISTORY: -SMOKES 1 PPD -ETOH--"COUPLE OF TIMES A WEEK" -DRUGS--SNORTS COCAINE, SMOKES METH AND MARIJUANA. ALSO HX OF ECSTASY USE EXTREME NON-COMPLIANCE IN ALL ASPECTS OF CARE (SHEILA PICKENS MD) Physical Exam Vital Signs Vital Signs - First Documented 04/20/22 17:26 Temp 35.2 Pulse 102 Resp 24 B/P (MAP) 207/145 (165) Pulse Ox 100 (BRETT HASSAN DO) Vital Signs Capillary Refill : (SHEILA PICKENS MD) Height, Weight, BMI Height: 5'11.00" Weight: 362lbs. 0.8oz. 164.580949qm; 50.00 BMI Method:Stated General Appearance: No Apparent Distress, WD/WN, Obese HEENT: PERRL/EOMI, Normal ENT Inspection Neck: Normal Inspection; No JVD Respiratory: Lungs Clear, Normal Breath Sounds, No Accessory Muscle Use, Other (Left upper chest mildly tender to palpation) Cardiovascular: No Edema, No Murmur, Tachycardia (Regular) Gastrointestinal: Normal Bowel Sounds, Non Tender, Soft Extremity: Normal Inspection, Non Tender Neurologic/Psychiatric: Alert, Oriented x3, No Motor/Sensory Deficits, Normal Mood/Affect Skin: Normal Color, Warm/Dry (SHEILA PICKENS MD) Progress/Results/Core Measures Results/Orders Lab Results Laboratory Tests Test 04/20/22 17:28 Range/Units White Blood Count 8.7 4.3-11.0 10^3/uL Red Blood Count 4.87 3.80-5.11 10^6/uL Hemoglobin 12.9 11.5-16.0 g/dL Hematocrit 42 35-52 % Mean Corpuscular Volume 86 80-99 fL Mean Corpuscular Hemoglobin 27 25-34 pg Mean Corpuscular Hemoglobin Concent 31 L 32-36 g/dL Red Cell Distribution Width 13.8 10.0-14.5 % Platelet Count 335 130-400 10^3/uL Mean Platelet Volume 8.8 L 9.0-12.2 fL Immature Granulocyte % (Auto) 0 % Neutrophils (%) (Auto) 59 42-75 % Lymphocytes (%) (Auto) 27 12-44 % Monocytes (%) (Auto) 7 0-12 % Eosinophils (%) (Auto) 6 0-10 % Basophils (%) (Auto) 1 0-10 % Neutrophils # (Auto) 5.2 1.8-7.8 10^3/uL Lymphocytes # (Auto) 2.3 1.0-4.0 10^3/uL Monocytes # (Auto) 0.6 0.0-1.0 10^3/uL Eosinophils # (Auto) 0.5 H 0.0-0.3 10^3/uL Basophils # (Auto) 0.1 0.0-0.1 10^3/uL Immature Granulocyte # (Auto) 0.0 0.0-0.1 10^3/uL Prothrombin Time 13.6 12.2-14.7 SEC INR Comment 1.0 0.8-1.4 Activated Partial Thromboplast Time 33 24-35 SEC Sodium Level 139 135-145 MMOL/L Potassium Level 3.0 L 3.6-5.0 MMOL/L Chloride Level 104 98-107 MMOL/L Carbon Dioxide Level 26 21-32 MMOL/L Anion Gap 9 5-14 MMOL/L Blood Urea Nitrogen 7 7-18 MG/DL Creatinine 0.82 0.60-1.30 MG/DL Estimat Glomerular Filtration Rate 95 BUN/Creatinine Ratio 9 Glucose Level 92 70-105 MG/DL Calcium Level 9.1 8.5-10.1 MG/DL Corrected Calcium 9.2 8.5-10.1 MG/DL Magnesium Level 1.9 1.6-2.4 MG/DL Total Bilirubin 0.5 0.1-1.0 MG/DL Aspartate Amino Transf (AST/SGOT) 20 5-34 U/L Alanine Aminotransferase (ALT/SGPT) 23 0-55 U/L Alkaline Phosphatase 82 40-136 U/L Myoglobin 83.2 10.0-92.0 NG/ML Troponin I < 0.028 <0.028 NG/ML B-Type Natriuretic Peptide 12.0 <100.0 PG/ML Total Protein 7.1 6.4-8.2 GM/DL Albumin 3.9 3.2-4.5 GM/DL Serum Test, Qualitative NEGATIVE NEGATIVE (BRETT HASSAN DO) My Orders Orders - BRETT HASSAN DO Hcg,Qualitative Serum (04/20/22 17:59) Labetalol Injection (Normodyne Injection (04/20/22 18:15) Potassium Chloride (Tablet) (Klor Con Ta (04/20/22 18:30) Ketorolac Injection (Toradol Injection) (04/20/22 19:30) (BRETT HASSAN DO) Medications Given in ED Current Medications Medications Dose Ordered Sig/Violette Route Start Time Stop Time Status Last Admin Dose Admin Amlodipine Besylate 10 mg ONCE ONCE PO 04/20/22 18:15 04/20/22 18:16 DC 04/20/22 18:09 10 MG Aspirin 324 mg ONCE ONCE PO 04/20/22 17:45 04/20/22 17:46 DC 04/20/22 17:59 324 MG Ketorolac Tromethamine 30 mg ONCE ONCE IVP 04/20/22 19:30 04/20/22 19:31 DC 04/20/22 19:36 30 MG Labetalol HCl 20 mg ONCE ONCE IV 04/20/22 18:15 04/20/22 18:17 DC 04/20/22 18:41 20 MG Nitroglycerin 0.4 mg UD PRN SL 04/20/22 17:45 04/20/22 18:24 DC 04/20/22 18:24 0.4 MG Potassium Chloride 20 meq ONCE ONCE PO 04/20/22 18:30 04/20/22 18:31 DC 04/20/22 18:41 20 MEQ (BRETT HASSAN DO) Vital Signs/I&O 04/20/22 04/20/22 17:26 20:10 Temp 35.2 Pulse 102 82 Resp 24 22 B/P (MAP) 207/145 (165) 153/96 Pulse Ox 100 99 (BRETT HASSAN DO) Blood Pressure Mean: 165 Progress Progress Note : Time: 18:00 Progress Note Patient was interviewed and examined shortly after arrival. She had significant hypertension during assessment. She will be treated with aspirin and nitroglycerin. Amlodipine 10 mg also be given orally since she has been noncompliant with her usual blood pressure medications. Care of this patient is being transitioned to Dr. HASSAN at this time. (SHEILA PICKENS MD) Progress Note : Progress Note 1800--ASSUMED CARE FROM DR. PICKENS AT SHIFT CHANGE, LAB AND CXR PENDING. BP 180'S/120'S, HR 105. PT STATES CHEST PAIN IS GONE, HAS SOME ACHING IN HER LEFT ARM AND C/O HEADACHE. LABETALOL ORDERED. ORAL POTASSIUM ALSO ORDERED FOR K+ OF 3.0 PT STATES LMP WAS 04/10/22, PT HAS IUD IN PLACE. REVIEWED PRIOR RECORDS, INCLUDING ER VISITS, ADMITS, H&P'S, CONSULTS, TESTS/PROCEDURES, AND DISCHARGE SUMMARIES. 1924--BP 155/96, HR IN 80'S-90'S. STILL C/O MILD HEADACHE, OTHER SYMPTOMS RESOLVED. PT IS ON "FACE TIME" FOR ENTIRE ER STAY. TORADOL ORDERED ALL SYMPTOMS ARE IMPROVED AT DISMISSAL, HEADACHE IS GONE, NO CHEST PAIN OR ARM PAIN BP DOWN TO 150'S/90'S, HR IN 80'S, O2 SATS 100% ON ROOM AIR. DISCUSSED TEST RESULTS, ANTICIPATED COURSE, STRESSED THE IMPORTANCE OF TAKING HER BLOOD PRESSURE MEDICATION EVERY DAY, AVOIDING DRUGS, NEED FOR FOLLOW UP AND RETURN PRECAUTIONS. (BRETT HASSAN DO) Initial ECG Impression Date: Apr 20, 2022 Initial ECG Impression Time: 17:30 Initial ECG Rate: 100 Initial ECG Rhythm: S.Tach Comment Sinus tachycardia with no ST elevation or depression. QTC slightly prolonged at 518 ms. No axis deviation. (SHEILA PICKENS MD) Diagnostic Imaging Comments CXR--PER RADIOLOGIST REPORT AT 1817 FINDINGS: The lung volumes are normal. No focal consolidation is seen. Overlying haziness is thought to be due to soft tissues. No large pleural effusion or pneumothorax is seen. The cardiomediastinal silhouette is normal in size and contour. No acute osseous abnormality is seen. IMPRESSION: No acute pulmonary abnormality seen. Reviewed: Reviewed by Me (BRETT HASSAN DO) Departure Impression Primary Impression: Chest pain Qualified Codes: R07.9 - Chest pain, unspecified Additional Impressions: Hypertensive urgency Methamphetamine abuse Hypokalemia Non-compliance Disposition: HOME, SELF-CARE Condition: Improved Departure-Patient Inst. Decision time for Depature: 19:44 (BRETT HASSAN DO) Referrals: BRINA CM MD (PCP/Family) Primary Care Physician Patient Instructions: High Blood Pressure (DC), Drug Abuse Treatment, Chest Pain (DC), Hypokalemia (DC) Add. Discharge Instructions: HOME,REST TAKE YOUR BLOOD PRESSURE MEDICATIONS EXACTLY PRESCRIBED AND DO NOT MISS DOSES NO DRUGS OR ALCOHOL YOU MAY TAKE TYLENOL 1 GRAM AND MOTRIN 800 MG EVERY 6 HOURS NEEDED FOR PAIN FOLLOW UP WITH [facility] NEXT WEEK FOR FURTHER CARE--CALL IN THE MORNING TO SCHEDULE AN APPOINTMENT All discharge instructions reviewed with patient and/or family. Voiced understanding. SHEILA PICKENS MD Apr 20, 2022 18:01 BRETT HASSAN DO Apr 20, 2022 18:11
[2022-04-20 18:03] LABS: MAGNESIUM 1.9 MG/DL (1.6-2.4)
--- NOTE | 2022-04-20 18:11 | Diagnostic Imaging Report ---
PATIENT HISTORY: Chest pain. TECHNIQUE: Single frontal view of the chest. COMPARISON: 02/22/2022. FINDINGS: The lung volumes are normal. No focal consolidation is seen. Overlying haziness is thought to be due to soft tissues. No large pleural effusion or pneumothorax is seen. The cardiomediastinal silhouette is normal in size and contour. No acute osseous abnormality is seen. IMPRESSION: No acute pulmonary abnormality seen. Dictated by: Dictated on workstation # [id number]
[2022-04-20] MEDS ORDERED: amLODIPine 10 MG (NORVASC) TAB PO ONE (18:15)
[2022-04-20] MEDS ORDERED: LABETALOL HCL 20 MG/4 ML VIAL IV ONE (18:15)
[2022-04-20] MEDS ORDERED: KCL 10 MEQ TAB (MICRO K) PO ONE (18:30)
[2022-04-20] MEDS ORDERED: KETOROLAC 30 MG/ML VIAL IVP ONE (19:30)
[2022-04-20 20:10] VITALS: BP 153/96
== END 2022-04-20 20:13 | disposition home or self-care (01) ==
LOC: EDUNIT# 17:24 → ER 17:25
DX: I16.0 Hypertensive urgency (principal); F15.10 Other stimulant abuse, uncomplicated; E87.6 Hypokalemia; I10 Essential (primary) hypertension; Z91.199 Patient's noncompliance with other medical treatment and regimen due to unspecified reason; F17.210 Nicotine dependence, cigarettes, uncomplicated; Z28.310 Unvaccinated for COVID-19; Z86.16 Personal history of COVID-19
CPT/HCPCS: 36415; 71045; 80053; 83735; 83874; 83880; 84484; 84703; 85025; 85610; 85730; 93005; 93041

== ENCOUNTER 2022-06-18 15:26 | Emergency (ER) | payer MEDICAID ==
[2022-06-18] MEDS ORDERED: ASPIRIN 81 MG CHEW (CHILDREN'S ASA) PO ONE (16:00)
--- NOTE | 2022-06-18 16:05 | ED Chest Pain ---
General Chief Complaint: Chest Pain Stated Complaint: CHEST PAIN HIGH BP 198\\118 Source: patient Exam Limitations: no limitations History of Present Illness Date Seen by Provider: Jun 18, 2022 Time Seen by Provider: 16:01 Initial Comments Patient is a 37-year-old female presents ED with multiple complaints. She states she has substernal chest pain with radiation to the back. Described as sharp and constant over the past week. No cough or shortness of breath. She states she has a frontal head pain described as pressure constant for the past 2 weeks with blurry vision intermittently over the past 2 weeks. She states her left arm feels heavy with the chest pain. Nausea without vomiting or diarrhea. She reports objective fever at home. She was seen at the walk-in clinic was recommended come to ED for further evaluation of her complaints and elevated blood pressure. She states she had a blood pressure as high as 204/159 Saturday. She is currently on losartan and amlodipine. A known history of hypertension. Denies history of stroke, CHF, coronary artery disease, diabetes, kidney disea se. She reports some bilateral lower leg swelling. She has been taken aspirin for the past week. But denies taking aspirin today. Denies abdominal pain, dysuria, hematuria, lower back pain, lower extremity weakness or sensory changes, facial droop Allergies and Home Medications Allergies Coded Allergies: No Known Drug Allergies (Unverified , 10/20/12) Patient Home Medication List Home Medication List Reviewed: Yes Albuterol Sulfate (Ventolin Hfa) 90 Mcg Hfa.aer.ad, 2 PUFF INH Q4H PRN for SHORTNESS OF BREATH, (Reported) Entered as Reported by: DENNIS STEARNS on 01/12/22 1142 Amlodipine Besylate (Amlodipine Besylate) 5 Mg Tablet, 5 MG PO DAILY Prescribed by: KRISTOFER BETANCUR on 01/16/22 0928 Aspirin (Aspirin EC) 325 Mg Tablet.dr, 325-650 MG PO Q6H PRN for PAIN-MILD (1- 4), (Reported) Entered as Reported by: DENNIS STEARNS on 01/12/22 1142 Benzonatate (Tessalon Perles) 100 Mg Capsule, 200 MG PO TID PRN for COUGH Prescribed by: SHEILA WALTERS on 02/22/22 1137 Famotidine (Famotidine) 20 Mg Tablet, 20 MG PO BID Prescribed by: KRISTOFER BETANCUR on 01/16/22927 Fluticasone Propion/Salmeterol (Fluticasone-Salmeterol 500-50) 500 Mcg-50 Mcg/Dose Blst.w.dev, 1 PUFF INH BID Prescribed by: KRISTOFER BETANCUR on 01/16/22927 Hydrocodone Bit/Acetaminophen (HYDROcodone/APAP 5 MG/325 MG TAB) 1 Tab Tab, 1 EA PO Q4H PRN for MOD Prescribed by: KRISTOFER BETANCUR on 01/16/22927 Ibuprofen (Ibuprofen) 200 Mg Tablet, 400-800 MG PO Q8H PRN for PAIN-MILD (1-4), (Reported) Entered as Reported by: DENNIS STEARNS on 01/12/22 114 Ipratropium/Albuterol Sulfate (Iprat-Albut 0.5-3(2.5) mg/3 ml) 0.5 Mg-3 Mg (2.5 Mg Base)/3 Ml Ampul.neb, 3 ML IH Q4H, (Reported) Entered as Reported by: DENNIS STEARNS on 01/12/22 114 L.acidoph & Paracasei,B.lactis (Probiotic) 10 Billion Cell Capsule, 1 EACH PO DAILY, (Reported) Entered as Reported by: DENNIS STEARNS on 01/12/22 114 Loratadine (Loratadine) 10 Mg Tablet, 10 MG PO DAILY Prescribed by: KRISTOFER BETANCUR on 01/16/22927 Lorazepam (Ativan) 0.5 Mg Tablet, 0.5 MG PO TID PRN for ANXIETY Prescribed by: KRISTOFER BETANCUR on 01/16/22927 Losartan Potassium (Losartan Potassium) 50 Mg Tablet, 50 MG PO DAILY Prescribed by: KRISTOFER BETANCUR on 01/16/22927 Montelukast Sodium (Montelukast Sodium) 10 Mg Tablet, 10 MG PO HS Prescribed by: KRISTOFER BETANCUR on 01/16/22927 Ondansetron (Ondansetron Odt) 4 Mg Tab.rapdis, 4 MG SL Q4H PRN for NAUSEA/VOMITING Prescribed by: SEHILA WALTERS on 02/22/22 1137 Oseltamivir Phosphate (Tamiflu) 75 Mg Cap, 75 MG PO BID Prescribed by: SHEILA WALTERS on 02/22/22 1137 Pantoprazole Sodium (Pantoprazole Sodium) 40 Mg Tablet.dr, 40 MG PO DAILY Prescribed by: KRISTOFER BETANCUR on 01/16/22927 Prednisone (Prednisone) 10 Mg Tab.ds.pk, 10 MG PO DAILY Prescribed by: KRISTOFER BETANCUR on 01/16/22927 Tiotropium [place] (Spiriva Respimat 2.5MCG/ACTUATION) 2.5 Mcg/Actuation Mist.inhal, 1 PUFF INH BID, (Reported) Entered as Reported by: MALI COOPER on 01/11/22 9650 Review of Systems Review of Systems Constitutional: No chills, No diaphoresis, No malaise, No weakness EENTM: Blurred Vision; No Double Vision, No Eye Pain, No Ear Pain, No Mouth Pain, No Mouth Swelling Respiratory: Denies Cough, Denies Orthopnea, Denies SOA at Rest Cardiovascular: Chest Pain; Denies Edema, Denies Syncope Gastrointestinal: Denies Abdominal Pain, Denies Diarrhea, Denies Difficulty Swallowing; Nausea; Denies Vomiting Genitourinary: Denies Burning, Denies Discharge, Denies Drainage, Denies Frequency Musculoskeletal: back pain; No joint pain, No joint swelling, No muscle pain Skin: No change in color, No change in hair/nails Psychiatric/Neurological: Denies Depressed, Denies Emotional Problems All Other Systems Reviewed Negative Unless Noted: Yes Past Fkhnfyc-Nssiud-Mmyjyr Hx Immunizations Up To Date Tetanus Booster (TDap): Unknown PED Vaccines UTD: No First/Initial COVID19 Vaccinat: Unvaccinated Second COVID19 Vaccination [place]: Unvaccinated Third COVID19 Vaccination Date: Unvaccinated Seasonal Allergies Seasonal Allergies: Yes Past Medical History Surgery/Hospitalization HX: COPD, asthma, htn Surgeries: No Respiratory: Yes (COVID 03/2021-NO HOSPITALIZATION) Asthma Currently Using CPAP: No Currently Using BIPAP: No Cardiac: Yes (REFUSES TO TAKE MEDICATION) Hypertension Neurological: No 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 Disorders: Yes 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, Ovarian Cyst ANHYDROUS [employer] History: IUD Sexually Transmitted Disease: Yes (HERPES,) HIV/AIDS: No Genitourinary: Yes UTI-Chronic Gastrointestinal: Yes Gastroesophageal Reflux, Hemorrhoids Musculoskeletal: No Endocrine: Yes (MORBID OBESITY) HEENT: No Loss of Vision: Denies Hearing Impairment: Denies Cancer: No Psychosocial: Yes (POLYSUBSTANCE ABUSE) Depression Integumentary: Yes Herpes Blood Disorders: No Adverse Reaction/Blood Tranf: No Family Medical History Asthma 19 FATHER G8 BROTHER Completed stroke MATERNAL GRANDFATHER Diabetes mellitus 19 FATHER 19 MOTHER Drug abuse 19 FATHER G8 BROTHER G8 BROTHER G8 BROTHER FH: breast cancer MATERNAL GRANDMOTHE ( AGE 71) Headache disorder G8 SISTER Hypertension 19 MOTHER G8 BROTHER Psychosocial problem G8 BROTHER Seizure disorder MATERNAL GRANDMOTHE SOCIAL HISTORY: -SMOKES 1 PPD -ETOH--"COUPLE OF TIMES A WEEK" -DRUGS--SNORTS COCAINE, SMOKES METH AND MARIJUANA. ALSO HX OF ECSTASY USE EXTREME NON-COMPLIANCE IN ALL ASPECTS OF CARE Physical Exam Vital Signs Vital Signs - First Documented 06/18/22 15:40 Temp 37.0 Pulse 100 Resp 20 B/P (MAP) 174/132 (146) Capillary Refill : Height, Weight, BMI Height: 5'11.00" Weight: 362lbs. 0.8oz. 164.652963bm; 50.00 BMI Method:Stated General Appearance: No Apparent Distress, WD/WN HEENT: PERRL/EOMI, TMs Normal, Normal ENT Inspection, Pharynx Normal Neck: Full Range of Motion, Normal Inspection, Non Tender, Supple Respiratory: Chest Non Tender, Lungs Clear, Normal Breath Sounds, No Accessory Muscle Use, No Respiratory Distress Cardiovascular: Regular Rate, Rhythm, No Edema, No Gallop, No JVD, No Murmur Gastrointestinal: Normal Bowel Sounds, No Organomegaly, No Pulsatile Mass, Non Tender Rectal: Normal Exam Extremity: Normal Capillary Refill, Normal Inspection, Normal Range of Motion, Non Tender, No Calf Tenderness Neurologic/Psychiatric: Alert, Oriented x3, No Motor/Sensory Deficits, Normal Mood/Affect, senior principal II-XII Norm as Tested Skin: Normal Color, Warm/Dry Progress/Results/Core Measures Results/Orders Lab Results Laboratory Tests Test 06/18/22 15:54 06/18/22 17:35 06/18/22 18:40 Range/Units White Blood Count 7.8 4.3-11.0 10^3/uL Red Blood Count 5.28 H 3.80-5.11 10^6/uL Hemoglobin 14.1 11.5-16.0 g/dL Hematocrit 45 35-52 % Mean Corpuscular Volume 85 80-99 fL Mean Corpuscular Hemoglobin 27 25-34 pg Mean Corpuscular Hemoglobin Concent 32 32-36 g/dL Red Cell Distribution Width 13.3 10.0-14.5 % Platelet Count 374 130-400 10^3/uL Mean Platelet Volume 8.8 L 9.0-12.2 fL Immature Granulocyte % (Auto) 1 % Neutrophils (%) (Auto) 58 42-75 % Lymphocytes (%) (Auto) 28 12-44 % Monocytes (%) (Auto) 8 0-12 % Eosinophils (%) (Auto) 4 0-10 % Basophils (%) (Auto) 1 0-10 % Neutrophils # (Auto) 4.6 1.8-7.8 10^3/uL Lymphocytes # (Auto) 2.2 1.0-4.0 10^3/uL Monocytes # (Auto) 0.6 0.0-1.0 10^3/uL Eosinophils # (Auto) 0.3 0.0-0.3 10^3/uL Basophils # (Auto) 0.1 0.0-0.1 10^3/uL Immature Granulocyte # (Auto) 0.0 0.0-0.1 10^3/uL Prothrombin Time 14.4 12.2-14.7 SEC INR Comment 1.1 0.8-1.4 Activated Partial Thromboplast Time 32 24-35 SEC Sodium Level 140 135-145 MMOL/L Potassium Level 3.7 3.6-5.0 MMOL/L Chloride Level 107 98-107 MMOL/L Carbon Dioxide Level 25 21-32 MMOL/L Anion Gap 8 5-14 MMOL/L Blood Urea Nitrogen 8 7-18 MG/DL Creatinine 0.79 0.60-1.30 MG/DL Estimat Glomerular Filtration Rate 99 BUN/Creatinine Ratio 10 Glucose Level 89 70-105 MG/DL Calcium Level 9.4 8.5-10.1 MG/DL Corrected Calcium 9.5 8.5-10.1 MG/DL Magnesium Level 2.0 1.6-2.4 MG/DL Total Bilirubin 0.3 0.1-1.0 MG/DL Aspartate Amino Transf (AST/SGOT) 18 5-34 U/L Alanine Aminotransferase (ALT/SGPT) 21 0-55 U/L Alkaline Phosphatase 88 40-136 U/L Myoglobin 53.6 10.0-92.0 NG/ML Troponin I < 0.028 < 0.028 <0.028 NG/ML B-Type Natriuretic Peptide < 10.0 <100.0 PG/ML Total Protein 7.2 6.4-8.2 GM/DL Albumin 3.9 3.2-4.5 GM/DL Lipase 130 H 8-78 U/L Urine Opiates Screen POSITIVE H NEGATIVE Urine Oxycodone Screen NEGATIVE NEGATIVE Urine Methadone Screen NEGATIVE NEGATIVE Urine Propoxyphene Screen NEGATIVE NEGATIVE Urine Barbiturates Screen NEGATIVE NEGATIVE Ur Tricyclic Antidepressants Screen NEGATIVE NEGATIVE Urine Phencyclidine Screen NEGATIVE NEGATIVE Urine Amphetamines Screen POSITIVE H NEGATIVE Urine Methamphetamines Screen POSITIVE H NEGATIVE Urine Benzodiazepines Screen NEGATIVE NEGATIVE Urine Cocaine Screen NEGATIVE NEGATIVE Urine Cannabinoids Screen POSITIVE H NEGATIVE My Orders Orders - MADHURI TROTTER PA Ekg Tracing (06/18/22 15:35) Cbc With Automated Diff (06/18/22 15:57) Magnesium (06/18/22 15:57) Chest 1 View, Ap/Pa Only (06/18/22 15:57) Comprehensive Metabolic Panel (06/18/22 15:57) Myoglobin Serum (06/18/22 15:57) Protime With Inr (06/18/22 15:57) Partial Thromboplastin Time (06/18/22 15:57) Monitor-Rhythm Ecg Trace Only (06/18/22 15:57) Ed Iv/Invasive Line Start (06/18/22 15:57) Lipase (06/18/22 15:57) Bnp Valerie (06/18/22 15:57) Troponin I Val[place] (06/18/22 15:57) Aspirin Chewable Tablet (Baby Aspirin Ch (06/18/22 16:00) Ct Head Wo (06/18/22 15:57) Drug Screen Stat (Urine) (06/18/22 16:00) Morphine Injection (Morphine Injection (06/18/22 17:00) Fentanyl Inj (Sublimaze Injection) (06/18/22 18:04) Prochlorperazine Injection (Compazine In (06/18/22 18:15) Troponin I [place] (06/18/22 18:34) Medications Given in ED Vital Signs/I&O 06/18/22 06/18/22 15:40 19:36 Temp 37.0 37.0 Pulse 100 72 Resp 20 20 B/P (MAP) 174/132 (146) 154/99 Comment Sinus rhythm with sinus arrhythmia, low QRS voltage in pericardial leads. Nonspecific T wave abnormality in lateral precordial leads. 89 bpm, QRS duration 87 MS, QTc 418 MS Departure Communication (PCP) Reviewed previous ER visits, H&P, lab testing. Patient with multiple com plaints. Main complaint headache, dizziness, visual changes, chest pain. Symptoms over the past week constant. Patient was sent from [facility] for elevated blood pressure and sent to the ED. Currently on losartan 50 mg, amlodipine 5 mg. Patient states she is compliant. Left-sided chest pressure rating to the back. Similar type chest pain at prior visit. She does have chest wall t enderness. She has no focal neural deficits. Patient blood pressure 174/103. Concerning for hypertensive emergency. Due to the chest pain, headache with blurry vision CT scan of the head, cardiac work-up was initiated. Patient was given a full aspirin. EKG did not show any evidence of ST elevation, depression suggesting ischemic changes. No evidence of arrhythmia. CT scan of the head negative for hemorrhaging, mass. History of methamphetamine use. Reports recreational use. Urinalysis without evidence infection positive for methamphetamine and marijuana. CBC, CMP grossly unremarkable besides lipase of 130 but did not have any upper abdominal tenderness to this location suggesting pancreatitis. Pain appears to be more in the chest region. Chest x-ray was negative for pneumonia, pneumothorax, mediastinal widening suggesting aortic dissection. Initial troponin negative. BNP negative. Patient blood pressure continued to improve. She was given morphine initially for chest pain without much improvement. Patient was given Compazine and fentanyl with significant improvement. Patient with a heart score of 2. Obesity,smoking, family cardiac history, hypertension risk factors. Delta troponin was ordered 3 hours from initial drawl which was negative. Chest pain continue improve as well as headache. Patient did have more chest wall tenderness suggesting noncardiac however due to the elevated blood pressure and chest pain would be concerning for heart strain. Blood pressure as low as 154/99 without medication here. Discussed substance abuse. Discussed monitoring weight changes and continue to monitor blood pressure. Discussed increasing medication with primary care physician Discussed decreasing salt intake. Weight changes. Outpatient cardiac follow-up for better management of blood pressure and further evaluation of chest pain. Currently asymptomatic. Hypertensive urgency without evidence of endorgan damage. If any worsening symptoms to return back to ED for further evaluation. Due to the elevated lipase recommend clear liquid over the next 2 days and then work to more of a bland diet. If pain worsens located upper a bdomen, fever, vomiting to return back to ED for further evaluation. Follow-up with PCP in 2 to 3 days for reevaluation Impression Primary Impression: Chest pain Additional Impressions: Methamphetamine abuse Uncontrolled hypertension Disposition: HOME, SELF-CARE Condition: Stable Departure-Patient Inst. Decision time for Depature: 19:25 Referrals: BRINA CM MD (PCP/Family) Primary Care Physician WESLEY JOSEPH MD FACP FACC CCDS Patient Instructions: Chest Pain Add. Discharge Instructions: Recommend follow-up your primary care physician for evaluation. Provided cardiac outpatient follow-up All discharge instructions reviewed with patient and/or family. Voiced understanding. Work/School Note: Work Release Form Date Seen in the Emergency Department: Jun 18, 2022 Return to Work: Jun 20, 2022 MADHURI TROTTER Jun 18, 2022 16:05
[2022-06-18 16:09] LABS: BASOPHILS # (AUTO) 0.1 10^3/uL (0.0-0.1); BASOPHILS % (AUTO) 1 % (0-10); EOSINOPHILS # (AUTO) 0.3 10^3/uL (0.0-0.3); EOSINOPHILS % (AUTO) 4 % (0-10); HEMATOCRIT 45 % (35-52); HEMOGLOBIN 14.1 g/dL (11.5-16.0); LYMPHOCYTES # (AUTO) 2.2 10^3/uL (1.0-4.0); LYMPHOCYTES % (AUTO) 28 % (12-44); MEAN CORPUSCULAR HEMOGLOBIN 27 pg (25-34); MEAN CORPUSCULAR HGB CONC 32 g/dL (32-36); MEAN CORPUSCULAR VOLUME 85 fL (80-99); MEAN PLATELET VOLUME 8.8 fL (9.0-12.2); MONOCYTES # (AUTO) 0.6 10^3/uL (0.0-1.0); MONOCYTES % (AUTO) 8 % (0-12); NEUTROPHILS # (AUTO) 4.6 10^3/uL (1.8-7.8); NEUTROPHILS % (AUTO) 58 % (42-75); PLATELET COUNT 374 10^3/uL (130-400); WHITE BLOOD COUNT 7.8 10^3/uL (4.3-11.0)
[2022-06-18 16:14] LABS: ALBUMIN 3.9 GM/DL (3.2-4.5)
[2022-06-18 16:15] LABS: POTASSIUM 3.7 MMOL/L (3.6-5.0)
[2022-06-18 16:16] LABS: CALCIUM 9.4 MG/DL (8.5-10.1); INR 1.1 (0.8-1.4); PROTHROMBIN TIME PATIENT 14.4 SEC (12.2-14.7)
[2022-06-18 16:17] LABS: TOTAL PROTEIN 7.2 GM/DL (6.4-8.2)
[2022-06-18 16:19] LABS: BILIRUBIN,TOTAL 0.3 MG/DL (0.1-1.0)
[2022-06-18 16:21] LABS: CREATININE SERUM 0.79 MG/DL (0.60-1.30)
--- NOTE | 2022-06-18 16:30 | Diagnostic Imaging Report ---
INDICATION: Chest pain Frontal chest obtained at 04:11 p.m. Heart and mediastinal silhouette are normal in appearance. The lungs are clear. There is no pneumothorax or pleural fluid. IMPRESSION: Negative chest. Dictated by: Dictated on workstation # [id number]
--- NOTE | 2022-06-18 16:41 | Diagnostic Imaging Report ---
INDICATION: Hypertension and headache. TECHNIQUE: Multiple contiguous axial images were obtained through the brain without the use of intravenous contrast. Auto Exposure Controls were utilized during the CT exam to meet ALARA standards for radiation dose reduction. COMPARISON: There is no prior study for comparison. FINDINGS: There were no extra-axial fluid collections. No intracranial hemorrhage. No intracranial mass or mass effect. No midline shift. The ventricles are normal in size and position. There were no focal parenchymal abnormalities in the brain. Calvarial windows are unremarkable. Visualized portions of the sinuses are well aerated. IMPRESSION: Negative noncontrast brain CT. Dictated by: Dictated on workstation # [id number]
[2022-06-18] MEDS ORDERED: morphine INJ 10 MG/ML 1ML (SYR OR VIAL) IVP ONE (17:00)
[2022-06-18] MEDS ORDERED: fentaNYL INJ 100 MCG/2 ML AMP IVP STA (18:04)
[2022-06-18 18:07] LABS: AMPHETAMINE SCREEN, URINE POSITIVE (NEGATIVE); BARBITURATE SCREEN URINE NEGATIVE (NEGATIVE); BENZODIAZEPINES SCREEN URINE NEGATIVE (NEGATIVE); CANNABINOID SCREEN, URINE POSITIVE (NEGATIVE); COCAINE SCREEN URINE NEGATIVE (NEGATIVE); METHADONE STAT NEGATIVE (NEGATIVE); OPIATE SCREEN URINE POSITIVE (NEGATIVE); OXYCODONE STAT NEGATIVE (NEGATIVE); PROPOXYPHENE STAT NEGATIVE (NEGATIVE); TRICYCLIC ANTIDEPRESSANTS SCRE NEGATIVE (NEGATIVE)
[2022-06-18] MEDS ORDERED: PROCHLORPERAZINE 10 MG/2ML INJ (COMPAZINE) IV ONE (18:15)
[2022-06-18 19:36] VITALS: BP 154/99
== END 2022-06-18 19:38 | disposition home or self-care (01) ==
LOC: EDUNIT# 15:26 → ER 15:31
DX: I10 Essential (primary) hypertension (principal); F15.10 Other stimulant abuse, uncomplicated; E66.01 Morbid (severe) obesity due to excess calories; F17.210 Nicotine dependence, cigarettes, uncomplicated; Z68.43 Body mass index [BMI] 50.0-59.9, adult; Z86.16 Personal history of COVID-19; Z28.310 Unvaccinated for COVID-19
CPT/HCPCS: 36415; 70450; 71045; 80053; 80306; 83690; 83735; 83874; 83880; 84484; 85025; 85610; 85730; 93005; 93041